=== PATIENT | female | born 1955 | race Caucasian/White ===

== ENCOUNTER 2023-06-18 12:16 | Emergency (ER) | payer MEDICARE, SELFPAY ==
[2023-06-18 12:28] VITALS: BP 162/70; PULSE 89; RESP 18; TEMP 36.7; O2SAT 98; BMI 28.3
--- NOTE | 2023-06-18 12:43 | ECG_ITS ---
[facility] Test Date: 2023-06-18 Pat Name: GRISELDA DAVEY Department: Room: - Gender: Female [employer]isher: : 1955 Requested By: [id number] Order Number: [id number] Reading MD: KRISHNA HEALY Measurements Intervals [place] Rate: 43 P: 64 MD: 162 QRS: 48 QRSD: 138 T: 10 QT: 484 QTc: 430 Interpretive Statements 1130 Sinus bradycardia LEFT BUNDLE BRANCH BLOCK 9150 abnormal ECG Compared to ECG 06/18/2023 12:39:12 Sinus rhythm no longer present Ventricular premature complex(es) no longer present Electronically Signed On 06-19-2023 4:58:03 EST by KRISHNA HEALY
--- NOTE | 2023-06-18 12:44 | CT_ITS ---
The [address] [address] Patient Name: GRISELDA DAVEY MRN: [id number] date: 1955 Sex: F Assigned Patient Location: ER Current Patient Location: ED.MAIN Accession/Order Number: [id number] Exam Date: 06/18/2023 12:50 Report Date: 06/18/2023 13:17 At the request of: KYLEE MCLEAN Procedure: CT head/brain wo con EXAM: CT head/brain wo con HISTORY: dizziness, vertigo . Bradycardia. COMPARISON: None. TECHNIQUE: Contiguous transaxial images were obtained from skull base to vertex without administration of intravenous contrast. Dose reduction: mA and/or kV are were adjusted by automated exposure control software based upon patients height and weight. FINDINGS: There is no focal scalp soft tissue swelling or acute calvarial fracture. The visualized globes and orbits are grossly normal. Visualized paranasal sinuses are clear. Bilateral mastoid air cells are clear. The ventricles and sulci are normal and symmetric bilaterally. There is mild periventricular and deep subcortical white matter low-attenuation consistent with small vessel ischemic disease. There is no intraparenchymal hemorrhage, extraaxial fluid collection, mass lesion, or acute large territory ischemia by noncontrast CT. There is mild intracranial atherosclerosis. CT/CT head/brain wo con IMPRESSION: 1. No acute intracranial hemorrhage or acute large territory ischemia by noncontrast CT. 2. Cerebral atrophy and chronic small vessel ischemic disease. If the patient has a focal neurologic deficit or there is clinical suspicion for acute cerebrovascular accident, brain MRI would be recommended for further evaluation. Electronically authenticated by: JUVE MENG Date: 06/18/2023 13:17
--- NOTE | 2023-06-18 12:44 | XR_ITS ---
The [address] [address] Patient Name: GRISELDA DVAEY MRN: [id number] date: 1955 Sex: F Assigned Patient Location: ER Current Patient Location: ED.MAIN Accession/Order Number: [id number] Exam Date: 06/18/2023 12:50 Report Date: 06/18/2023 13:17 At the request of: KYLEE MCLEAN Procedure: XR chest 1V EXAM: XR chest 1V HISTORY: dizzy, bradycardia COMPARISON: Chest study dated 04/19/2010 TECHNIQUE: AP view of the chest was obtained with portable technique at 12:56 PM. FINDINGS: Heart is within the upper limits of normal for size. No acute infiltrate or consolidations are seen. No obvious pneumothorax. Slight convexity of the dorsal spine to the right. XR/XR chest 1V IMPRESSION: No acute process seen in the chest. Electronically authenticated by: TERESA DHALIWAL Date: 06/18/2023 13:17
--- NOTE | 2023-06-18 12:46 | ED.GENADUL1 ---
HPI - General Adult General Chief complaint: Neuro Symptoms/Deficit Stated complaint: CVA SYMPTOMS Time Seen by Provider: 06/18/23 12:33 Source: patient Mode of arrival: walk-in Limitations: no limitations History of Present Illness HPI narrative: 67-year-old female presents for episodes of dizziness. Two days ago she had two different episodes where she felt like she was spinning and she felt off-balance but she didn't pass out. She is also had tingling on both sides of her face. No localized weakness and she doesn't complain of a headache. She is on a beta bryon, propanolol. She has not had any palpitations and she takes the propanolol for mitral valve prolapse. No fever or vomiting. Related Data Home Medications Medication Instructions Recorded Confirmed mirabegron 50 mg tablet,extended 50 mg PO Q24H 06/18/23 06/18/23 release 24 hr (Myrbetriq) propranolol 80 mg capsule,24 80 mg PO Q24H 06/18/23 06/18/23 hr,extended release Allergies Allergy/AdvReac Type Severity Reaction Status Date / Time No Known Drug Allergies Allergy Verified 06/18/23 12:43 Review of Systems ROS Narrative A ten point review of systems is negative except as noted above. PFSH PFSH Social History Smoking status: Never smoker Exam Narrative Exam Narrative: Nurses note and vital signs reviewed and patient is not hypoxic. General: The patient appears well and in no apparent distress. Patient is resting comfortably on cart. Skin: Warm, dry, no pallor noted. There is no rash noted. Head: Normocephalic, atraumatic Eye: Normal conjunctiva, no drainage Ears, Nose, Mouth, and Throat: oral mucosa is moist. Nares patent. Cardiovascular: Regular Rate and Rhythm. when I walk into the room she was in sinus rhythm with a rate of eighty-five but a few minutes later her heart rate went to forty-five. Respiratory: Patient is in no distress, no accessory muscle use, lungs are clear to auscultation, no wheezing, rales or rhonchi Back: non-tender GI: soft and nontender Musculoskeletal: The patient has no evidence of calf tenderness, no pitting edema, symmetrical pulses noted bilaterally Neurological: A&O, normal speech Psychiatric: Cooperative Constitutional Vital Signs, click to edit/add: Last Vital Signs Temp 98.0 F 06/18/23 12:28 Pulse 89 06/18/23 12:28 Resp 18 06/18/23 12:28 BP 162/70 H 06/18/23 12:28 Pulse Ox 98 06/18/23 12:28 O2 Del Method Room Air 06/18/23 12:28 Course Vital Signs Vital signs: Vital Signs Temperature 98.0 F 06/18/23 12:28 Pulse Rate 89 06/18/23 12:28 Respiratory Rate 18 06/18/23 12:28 Blood Pressure 162/70 H 06/18/23 12:28 Pulse Oximetry 98 06/18/23 12:28 Oxygen Delivery Method Room Air 06/18/23 12:28 Temperature 98.0 F 06/18/23 12:28 Pulse Rate 89 06/18/23 12:28 Respiratory Rate 18 06/18/23 12:28 Blood Pressure 162/70 H 06/18/23 12:28 Pulse Oximetry 98 06/18/23 12:28 Oxygen Delivery Method Room Air 06/18/23 12:28 Medical Decision Making MDM Narrative Medical decision making narrative: The patient has had a heart rate in the mid to lower 40s and it appears to be acutely one block. It is intermittent. She also has intraventricular conduction delay. Case discussed with and Dr Tejeda and the patient is accepted at [facility] for further cardiology intervention. She is stable and agreeable for transfer. Differential Diagnosis Differential Diagnosis: AV block, complete heart block, electrolyte imbalance, propanolol toxic Lab Data Lab results reviewed: Yes I reviewed the patient's lab results Labs: Lab Results 06/18/23 Range/Units 12:47 WBC 7.6 (4.0-11.0) 10^3/uL RBC 4.29 (4.20-5.40) 10^6/uL Hgb 12.6 (12.0-16.0) g/dL Hct 38.9 (36.0-48.0) % MCV 90.7 (81.0-99.0) fL MCH 29.4 (26.7-34.0) pg MCHC 32.4 (29.9-35.2) g/dL RDW 12.7 (11.0-15.0) % Plt Count 249 (150-450) 10^3/uL MPV 9.2 L (9.5-13.5) fL Neut % (Auto) 58.4 (43.0-75.0) % Lymph % (Auto) 27.6 (20.5-60.0) % Hardin % (Auto) 8.3 (1.7-12.0) % Eos % (Auto) 4.9 (0.9-7.0) % Baso % (Auto) 0.5 (0.2-2.0) % Neut # (Auto) 4.5 (1.4-6.5) 10^3/uL Lymph # (Auto) 2.1 (1.2-3.8) 10^3/uL [place]in # (Auto) 0.6 (0.3-0.8) 10^3/uL Eos # (Auto) 0.4 (0.0-0.7) 10^3/uL Baso # (Auto) 0.0 (0.0-0.1) 10^3/uL Abs Immat Gran (auto) 0.02 (0.00-0.03) 10^3/uL Imm/Tot Granulo (auto) 0.3 (0.0-0.5) % Sodium 140 (136-145) mmol/L Potassium 4.1 (3.5-5.1) mmol/L Chloride 105 (98-107) mmol/L Carbon Dioxide 25.1 (21.0-32.0) mmol/L Anion Gap 14.0 BUN 30.0 H (7.0-18.0) mg/dL Creatinine 1.37 H (0.55-1.02) mg/dL Est GFR ( Amer) 46 L (>=60) Est GFR (Non-Af Amer) 38 L (>=60) BUN/Creatinine Ratio 21.9 Glucose 129 H (74-106) mg/dL Calcium 9.1 (8.5-10.1) mg/dL Magnesium 2.0 (1.8-2.4) mg/dL Troponin I High Sens 6.0 (4.0-51.3) pg/mL TSH 4.133 H (0.358-3.740) uIU/mL Imaging Data Chest x-ray: Radiologist's impression: Procedure: XR chest 1V EXAM: XR chest 1V HISTORY: dizzy, bradycardia COMPARISON: Chest study dated 04/19/2010 TECHNIQUE: AP view of the chest was obtained with portable technique at 12:56 PM. FINDINGS: Heart is within the upper limits of normal for size. No acute infiltrate or consolidations are seen. No obvious pneumothorax. Slight convexity of the dorsal spine to the right. IMPRESSION: No acute process seen in the chest. ECG Data Attestation: I personally reviewed and interpreted this ECG as follows: (EKG on my interpretation shows 2-1 AV block. A 2nd EKG was performed and shows mostly sinus rhythm with the 1st few beats on that 2nd EKG showing 2-1 block) Discharge Plan Discharge Chief Complaint: Neuro Symptoms/Deficit Clinical Impression: Atrioventricular block Patient Disposition: [facility] Time of Disposition Decision: 14:30 Discharge Location: [facility] Mode of Transportation: EMS
[2023-06-18 12:59] LABS: Basophils Percent Auto 0.5 % (0.2-2.0); Eosinophils Absolute Auto 0.4 10^3/uL (0.0-0.7); Eosinophils Percent Auto 4.9 % (0.9-7.0); Hematocrit 38.9 % (36.0-48.0); Hemoglobin 12.6 g/dL (12.0-16.0); Immature Granulocytes Abs Auto 0.02 10^3/uL (0.00-0.03); Immature Granulocytes Pct Auto 0.3 % (0.0-0.5); Lymphocytes Absolute Auto 2.1 10^3/uL (1.2-3.8); Lymphocytes Percent Auto 27.6 % (20.5-60.0); Mean Corpuscular HGB Conc 32.4 g/dL (29.9-35.2); Mean Corpuscular Hemoglobin 29.4 pg (26.7-34.0); Mean Corpuscular Volume 90.7 fL (81.0-99.0); Mean Platelet Volume 9.2 fL (9.5-13.5); Monocytes Absolute Auto 0.6 10^3/uL (0.3-0.8); Monocytes Percent Auto 8.3 % (1.7-12.0); Neutrophils Absolute Auto 4.5 10^3/uL (1.4-6.5); Neutrophils Percent Auto 58.4 % (43.0-75.0); Platelet Count 249 10^3/uL (150-450); Red Blood Count 4.29 10^6/uL (4.20-5.40); Red Cell Distribution Width 12.7 % (11.0-15.0); White Blood Count 7.6 10^3/uL (4.0-11.0)
[2023-06-18 13:24] LABS: BUN Creatinine Ratio 21.9; Calcium 9.1 mg/dL (8.5-10.1); Carbon Dioxide 25.1 mmol/L (21.0-32.0); Chloride 105 mmol/L (98-107); Estimated GFR (African America 46 (>=60); Estimated GFR (Non-African Ame 38 (>=60); Glucose 129 mg/dL (74-106); Potassium 4.1 mmol/L (3.5-5.1); Sodium 140 mmol/L (136-145)
[2023-06-18 13:28] LABS: Thyroid Stimulating Hormone 4.133 uIU/mL (0.358-3.740)
--- NOTE | 2023-06-18 13:30 | ECG_ITS ---
The [facility] Test Date: 2023-06-18 Pat Name: GRISELDA DAVEY Department: Room: - Gender: Female [employer] P[employer]: : 1955 Requested By: Order Number: [id number] Reading MD: NORMA LEAVITT Measurements Intervals [place] Rate: 74 P: 62 CA: 170 QRS: -32 QRSD: 136 T: 40 QT: 460 QTc: 487 Interpretive Statements 1100 Sinus rhythm w/ blocked PAC 1570 with occasional ventricular premature complexes 2330 Nonspecific intraventricular conduction block Low voltage across the precordium 7200 Abnormal left axis deviation 9150 abnormal ECG Electronically Signed On 06-19-2023 7:09:51 EST by NORMA LEAVITT
[2023-06-18 14:41] VITALS: BP 142/60
[2023-06-18 23:43] VITALS: BP 128/84; PULSE 84; RESP 17; TEMP 37.1; O2SAT 98
[2023-06-19 04:55] VITALS: PULSE 51
[2023-06-19 04:56] VITALS: BP 127/78; PULSE 51; RESP 16; O2SAT 99
--- NOTE | 2023-06-19 07:47 | PC.NURSE ---
Pt up in bed resting watching TV. Pt denies any flashes off sudden dizziness or extreme numbness/tingling in lips she had before. Breakfast ordered for patient. denies any other needs.
[2023-06-19 07:48] VITALS: BP 110/50; PULSE 47; O2SAT 98
== END 2023-06-19 09:30 | disposition short-term general hospital (02) ==
PROVIDERS: Emergency Medicine; Emergency Provider Internal Medicine; PCP Family Medicine
DX: I44.30 Unspecified atrioventricular block (principal); I45.9 Conduction disorder, unspecified
CPT/HCPCS: 36415; 70450; 71045; 80048; 83735; 84443; 84484; 85025; 93005; 99285

== ENCOUNTER 2023-06-24 10:06 | Emergency (ER) | payer MEDICARE, SELFPAY ==
[2023-06-24] VITALS (11 sets, daily range): BP systolic 117–176; BP diastolic 77–130; PULSE 82–127; RESP 15–28; TEMP 36.5; O2SAT 95–100; BMI 27.5
--- OUTSIDE RECORDS SUMMARY | 2023-06-24 10:15 | XMS_ITS | CCD ---
Author Name Unknown Address [address] [place] [address] Organization [facility] Care Team Providers Care Safety Sealer Name Role Phone DBOUK, TAREK A Unavailable Unavailable DEFRANCE, WOO Sellers Unavailable Unavailable DBOUK, TAREK A Unavailable Unavailable DBOUK, TAREK A Unavailable Unavailable DBOUK, TAREK A Unavailable Unavailable DEFRANCEWOO Unavailable Unavailable ANAI, MAXIME M Unavailable Unavailable ANAI, MAXIME M Unavailable Unavailable DEFRANCE, WOO Unavailable Unavailable DEFRANCE, WOO Unavailable Unavailable ANAI, MAXIME M Unavailable Unavailable ANAI, MAXIME M Unavailable Unavailable DEFRANCE, WOO Unavailable Unavailable DEFRANCE, WOO Unavailable Unavailable ANAI, MAXIME M Unavailable Unavailable ANAI, MAXIME M Unavailable Unavailable DEFRANCE, WOO Unavailable Unavailable DEFRANCE, WOO Unavailable Unavailable ANAI, MAXIME M Unavailable Unavailable ANAI, MAXIME M Unavailable Unavailable DEFRANCE, WOO Unavailable Unavailable DEFRANCE, WOO Unavailable Unavailable ANAI, MAXIME M Unavailable Unavailable ANAI, MAXIME M Unavailable Unavailable ANAI, MAXIME M Unavailable Unavailable DEFRANCE, WOO Unavailable Unavailable ANAI, MAXIME M Unavailable Unavailable ANAI, MAXIME M Unavailable Unavailable DEFRANCE, WOO Unavailable Unavailable DEFRANCE, WOO Unavailable Unavailable ANAI, MAXIME M Unavailable Unavailable ANAI, MAXIME M Unavailable Unavailable DEFRANCE, WOO Unavailable Unavailable DEFRANCE, WOO Unavailable Unavailable KEANE, SUSHILA H Referring Unavailable KEANE SUSHILA H Attending Unavailable KEANE, SUSHILA H Referring Unavailable KEANE, SUSHILA H Referring Unavailable Unavailable Unavailable Unavailable Giovany Souza Unavailable DEFRANCE, DR BERKOWITZ Attending Unavailable DEFRANCE, DR BERKOWITZ Consulting Unavailable DEFRANCE, DR BERKOWITZ Primary Care Unavailable DEFRANCE, DR BERKOWITZ Admitting Unavailable JAMIEDEBI Mendoza Admitting Unavailable KYLEE MCLEAN Referring Unavailable AUSTYN LYONS Attending Unavailable SOM HAMM Referring Unavailable BLANCASAKINA BALL Referring Unavailable SAKINA RIOS Referring Unavailable SRI, AUSTYN Referring Unavailable Allergies Allergy Classification Reported Allergen(s) Allergy Type Date of Onset Reaction(s) Facility (1 source) 82712,00 Drug allergy (disorder) 7 [facility] Repository (1 source) ALLERGIES NOT ON FILE; Translations: [ALLERGIES NOT ON FILE] Propensity to adverse reactions (disorder) [facility] Repository Problems Active Problems Problem Classification Problem Date Documented Date Episodic/Chronic Cardiac dysrhythmias (4 sources) Bradycardia, unspecified; Translations: [Palpitations] Onset: 06-19-2023 Episodic Conduction disorders (4 sources) Unspecified atrioventricular block; Translations: [Presence of cardiac pacemaker] Onset: 06-19-2023 Chronic Disorders of lipid metabolism (4 sources) Mixed hyperlipidemia; Translations: [MIXED HYPERLIPIDEMIA] Onset: 01-12-2022 Chronic Heart valve disorders (1 source) Rheumatic disorders of both mitral and aortic valves; Translations: [Rheumatic disorders of both mitral and aortic valves] Onset: 08-23-2018 Chronic Immunizations and screening for infectious disease (3 sources) Encounter for immunization; Translations: [Encounter For Immunization] Onset: 09-03-2020 Episodic Osteoarthritis (1 source) Bilateral primary osteoarthritis of hip; Translations: [BILATERAL PRIMARY OSTEOARTHRITIS OF HIP] Onset: 03-16-2017 Chronic Other lower respiratory disease (1 source) Shortness of breath; Translations: [Shortness of breath] Onset: 08-23-2018 Episodic Unclassified (2 sources) MIXED INCONTINENCE URGE AND STRESS / MIXED INCONTINENCE URGE AND STRESS() Onset: 09-24-2017 Unclassified (2 sources) Unknown / UNK(Unknown) Onset: 01-11-2017 Past or Other Problems Problem Classification Problem Date Documented Da te Episodic/Chronic Other connective tissue disease (1 source) Arthrodesis status; Translations: [ARTHRODESIS STATUS] Onset: 03-16-2017 Episodic Other fractures (7 sources) Multiple fractures of pelvis without disruption of pelvic ring, subsequent encounter for fracture with routine healing; Translations: [Fracture of unspecified parts of lumbosacral spine and pelvis, subsequent encounter for fracture with routine healing] Onset: 01-11-2017 Episodic Unclassified (2 sources) MIXED INCONTINENCE URGE AND STRESS; Translations: [mixed incontinence urge and stress] Onset: 09-24-2017 Results Test Name Value Interpretation Reference Range Facility 30on 06-22-2023 30 The patient is Moderately Stable - Low risk of patient condition declining or worsening The patient's goals for the shift include d/c The clinical goals for the shift include stable VS Problem: Pain - Adult Goal: Verbalizes/displays adequate comfort level or baseline comfort level Outcome: Progressing Flowsheets (Taken 06/22/2023 0830) Verbalizes/displays adequate comfort level or baseline comfort level: Encourage patient to monitor pain and request assistance Assess pain using appropriate pain scale Administer analgesics based on type and severity of pain and evaluate response Implement non-pharmacological measures as appropriate and evaluate response Consider cultural and social influences on pain and pain management Notify Licensed Independent Practitioner if interventions unsuccessful or patient reports new pain Problem: Safety - Adult Goal: Free from fall injury Outcome: Progressing Flowsheets (Taken 06/22/2023 1000) Free from fall injury: Assess patient frequently for physical needs Identify cognitive and physical deficits and behaviors that affect risk of falls [place] fall precautions as indicated by assessment Educate patient/family on patient safety, including physical limitations Instruct patient to call for assistance with activity based on assessment Modify environment to reduce risk of injury Consider OT/PT consult to assist with strengthening/mobility Problem: Discharge Planning Goal: Discharge to home or other facility with appropriate resources Outcome: Progressing Flowsheets (Taken 06/22/2023 0830) Discharge to home or other facility with appropriate resources: Identify barriers to discharge with patient and caregiver Arrange for needed discharge resources and transportation as appropriate Identify discharge learning needs (meds, wound care, etc) Arrange for interpreters to assist at discharge as needed Refer to discharge planning if patient needs post-hospital services based on physician order or complex needs related to functional status, cognitive ability or social support system Problem: Chronic Conditions and Co-morbidities Goal: Patient's chronic conditions and co-morbidity symptoms are monitored and maintained or improved Outcome: Progressing Problem: Cardiovascular - Adult Goal: Maintains optimal cardiac output and hemodynamic stability Outcome: Progressing Flowsheets (Taken 06/22/2023 0830) Maintains optimal cardiac output and hemodynamic stability: Monitor urine output and notify Licensed Independent Practitioner for values outside of normal range Monitor blood pressure and heart rate Assess for signs of decreased cardiac output Administer fluid and/or volume expanders as ordered Administer vasoactive medications as ordered Problem: Cardiovascular - Adult Goal: Absence of cardiac dysrhythmias or at baseline Outcome: Progressing Flowsheets (Taken 06/22/2023 0830) Absence of cardiac dysrhythmias or at baseline: Monitor cardiac rate and rhythm Assess for signs of decreased cardiac output Administer antiarrhythmia medication and electrolyte replacement as ordered [facility] Letter (Out)on 06-22-2023 Letter (Out) [id number] Luma Carter 1955 F Date Provider Department Center 06/22/2023 [id number], GENERIC PRO*INIT None No family history on file [facility] 30on 06-21-2023 30 The patient is Moderately Stable - Low risk of patient condition declining or worsening The patient's goals for the shift include comfort The clinical goals for the shift include stable vitals Normal [facility] 30 The patient is Moderately Stable - Low risk of patient condition declining or worsening The patient's goals for the shift include comfort The clinical goals for the shift include stable vitals Problem: Pain - Adult Goal: Verbalizes/displays adequate comfort level or baseline comfort level Outcome: Progressing Flowsheets (Taken 06/21/2023 0810) Verbalizes/displays adequate comfort level or baseline comfort level: Encourage patient to monitor pain and request assistance Assess pain using appropriate pain scale Administer analgesics based on type and severity of pain and evaluate response Implement non-pharmacological measures as appropriate and evaluate response Consider cultural and social influences on pain and pain management Notify Licensed Independent Practitioner if interventions unsuccessful or patient reports new pain Problem: Safety - Adult Goal: Free from fall injury Outcome: Progressing Flowsheets (Taken 06/21/2023 0900) Free from fall injury: Assess patient frequently for physical needs Problem: Discharge Planning Goal: Discharge to home or other facility with appropriate resources Outcome: Progressing Flowsheets (Taken 06/21/2023 0800) Discharge to home or other facility with appropriate resources: Identify barriers to discharge with patient and caregiver Arrange for needed discharge resources and transportation as appropriate Identify discharge learning needs (meds, wound care, etc) Arrange for interpreters to assist at discharge as needed Refer to discharge planning if patient needs post-hospital services based on physician order or complex needs related to functional status, cognitive ability or social support system [facility] 30 Routine stress tests Patient information sheet explained, questions answered and signed. Doctor consulted--NA Treatment/Decision tree utilized-arrhythmias Pt instructed she will get results as an inpatient PT tolerated treadmill fair, target heart rate was not achieved. No acute ST or T waves changes noted, LBBB seen and 2:1 AV block seen Denies chest pain, complained of some dizziness and dyspnea Rare PVC's seen Pt left stress lab asymptomatic and hemodynamically stable. Full final report from hydraulic press in operator to follow Shanta Robbins, MSN, CONDITIONER TUMBLER OPERATOR Stress Lab Normal [facility] 30 Daily Case Managemen t Update Multidisciplinary rounds have been completed. Barriers to Discharge: Pending clinical course and improvement in clinical condition. Patient having treadmill stress test today per cardiology to determine plan - pacemaker vs monitor on dc Diet: Dietary Orders (From admission, onward) Start Ordered 06/21/23 0001 Diet NPO Diet effective midnight Comments: Sips with medications Question: Reason for NPO: Answer: Operation/Procedure 06/20/23 1230 Physician Expected Discharge Date: 06/21/2023 Discharge Delays: PT Six Click Score: OT Six Click Score: PT Recommendations: OT Recommendations: Does patient understand post acute plan of care? Yes Is expected discharge disposition appropriate for patient?: Yes New Consults: Consult Orders (From admission, onward) Start Ordered 06/19/23 1149 Inpatient consult to Neurology Once Specialty: Neurology Provider: (Not yet assigned) Question Answer Comment Consulting Group HOSPITALIST (ADMIT/FLOAT) Reason for Consult? perioral numbness Level of Consultation Consultation and Management 06/19/23 1148 Normal [facility] BASIC METABOLIC PANELon 12-2 Anion gap [Moles/Vol] 8 mmol/L Normal 7-20 [facility] Comment on above: Performed By: #### L [id number] #### [facility] ([facility]) [address] [place] [address] Calcium [Mass/Vol] 9.0 mg/dL Normal 8.6-10.3 [facility] Comment on above: Performed By: #### L [id number] #### [facility] ([facility]) [address] [place] [address] Chloride [Moles/Vol] 109 mmol/L High 98-107 [facility] Comment on above: Performed By: #### L [id number] #### [facility] ([facility]) [address] [place] [address] CO2 [Moles/Vol] 24 mmol/L Normal 21-31 [facility] Comment on above: Performed By: #### L [id number] #### [facility] ([facility] [address] [place] [address] Creatinine [Mass/Vol] 1.05 mg/dL Normal 0.60-1.20 [facility] Comment on above: Performed By: #### L [id number] #### [facility] ([facility]) [address] [place] [address] GLOMERULAR FILTRATION RATE ML/MIN/1.73 SQ M.PREDICTED 57.9 mL/min/1.73m*2 Low >60.0 [facility] Comment on above: Result Comment: [facility]???s estimated glomerular filtration rate (eGFR) will no longer include consideration of race in its calculation. The National Kidney Foundation???s eGFR Task Force developed new recommendations for the estimation of the glomerular filtration rate in the [place] They recommend immediate implementation of the new equation refit without the race variable in all laboratories because the calculation does not include race. In addition to not including race in the calculation and reporting, it included diversity in its development, and has acceptable performance characteristics and potential consequences that do not disproportionately affect any one group of individuals. Performed By: #### L [id number] #### [facility] ([facility]) [address] [place] [address] Glucose [Mass/Vol] 108 mg/dL High 70-100 [facility] Comment on above: Performed By: #### L [id number] #### [facility] ([facility]) [address] [place] [address] Potassium [Moles/Vol] 4.2 mmol/L Normal 3.5-5.1 [facility] Comment on above: Performed By: #### L [id number] #### [facility] ([facility]) [address] [place] [address] Sodium [Moles/Vol] 137 mmol/L Normal 136-145 [facility] Comment on above: Performed By: #### L [id number] #### [facility] ([facility]) [address] [place] [address] Urea nitrogen [Mass/Vol] 25 mg/dL Normal 7-25 [facility] Comment on above: Performed By: #### L [id number] #### [facility] ([facility]) [address] [place] [address] UREA NITROGEN/CREATININE (MASS RATIO) IN SER/PLAS 23.8 Normal [facility] Comment on above: Performed By: #### L [id number] #### [facility] ([facility]) [address] [place] [address] CBCon 06-21-2023 Erythrocyte distribution width (RBC) [Ratio] 12.7 % Normal 11.5-15.0 [facility] Comment on above: Performed By: #### L [id number] #### [facility] ([facility]) [address] [place] [address] ERYTHROCYTE MEAN CORPUSCULAR HEMOGLOBIN CONCENTRATION (G/DL) BY AUTOMATED 33.4 g/dL Normal 32.0-35.0 [facility] Comment on above: Performed By: #### L [id number] #### [facility] ([facility]) [address] [place] [address] Hematocrit (Bld) [Volume fraction] 38.6 % Normal 36.0-48.0 [facility] Comment on above: Performed By: #### L [id number] #### [facility] ([facility] [address] [place] [address] Hemoglobin (Bld) [Mass/Vol] 12.9 g/dL Normal 12.0-15.0 [facility] Comment on above: Performed By: #### L [id number] #### [facility] ([facility]) [address] [place] [address] MCH (RBC) [Entitic mass] 29.4 pg Normal 27.0-33.0 [facility] Comment on above: Performed By: #### L [id number] #### [facility] ([facility]) [address] [place] [address] MCV (RBC) [Entitic vol] 87.9 fL Normal 82.0-98.0 [facility] Comment on above: Performed By: #### L [id number] #### [facility] ([facility]) [address] [place] [address] PLATELETS (10*3/UL) IN BLOOD AUTOMATED COUNT 208 10*3/uL Normal 150-400 [facility] Comment on above: Performed By: #### L [id number] #### [facility] ([facility]) [address] [place] [address] RBC (Bld) [#/Vol] 4.39 10*6/uL Normal 3.80-5.00 [facility] Comment on above: Performed By: #### L [id number] #### [facility] ([facility]) [address] [place] [address] WBC (Bld) [#/Vol] 6.57 10*3/uL Normal 4.00-10.60 [facility] Comment on above: Performed By: #### L [id number] #### [facility] ([facility]) [address] [place] [address] 30on 06-20-2023 30 The patient is Moderately Stable - Low risk of patient condition declining or worsening The patient's goals for the shift include comfort The clinical goals for the shift include stable vitals Normal [facility] 30 Daily Case Managemen t Update Multidisciplinary rounds have been completed. Barriers to Discharge: Pending clinical course and improvement in clinical condition. Neurology consulted to evaluate complaints of facial numbness and tingling. Plan for permanent pacemaker to be placed tomorrow 06/21/2023. Diet: Dietary Orders (From admission, onward) Start Ordered 06/21/23 0001 Diet NPO Diet effective midnight Comments: Sips with medications Question: Reason for NPO: Answer: Operation/Procedure 06/20/23 1230 06/20/23 1214 Regular Diet Heart Healthy/HTN, CABG,Stroke, (2gNA, low fat, low cholesterol) Diet effective now Question Answer Comment Room Service? Yes Fat restriction: Heart Healthy/HTN, CABG,Stroke, (2gNA, low fat, low cholesterol) 06/20/23 1213 Physician Expected Discharge Date: 06/21/2023 Discharge Delays: PT Six Click Score: OT Six Click Score: PT Recommendations: OT Recommendations: Does patient understand post acute plan of care? Yes Is expected discharge disposition appropriate for patient?: Yes New Consults: Consult Orders (From admission, onward) Start Ordered 06/19/23 1149 Inpatient consult to Neurology Once Specialty: Neurology Provider: (Not yet assigned) Question Answer Comment Consulting Group HOSPITALIST (ADMIT/FLOAT) Reason for Consult? perioral numbness Level of Consultation Consultation and Management 06/19/23 1148 Normal [facility] 30 Problem: Pain - Adul t Goal: Verbalizes/displays adequate comfort level or baseline comfort level Outcome: Progressing Flowsheets (Taken 06/20/2023799) Verbalizes/displays adequate comfort level or baseline comfort level: Encourage patient to monitor pain and request assistance Assess pain using appropriate pain scale Administer analgesics based on type and severity of pain and evaluate response Implement non-pharmacological measures as appropriate and evaluate response Consider cultural and social influences on pain and pain management Notify Licensed Independent Practitioner if interventions unsuccessful or patient reports new pain Problem: Safety - Adult Goal: Free from fall injury Outcome: Progressing Flowsheets (Taken 06/20/2023 08) Free from fall injury: Identify cognitive and physical deficits and behaviors that affect risk of falls Assess patient frequently for physical needs [place] fall precautions as indicated by assessment Educate patient/family on patient safety, including physical limitations Instruct patient to call for assistance with activity based on assessment Modify environment to reduce risk of injury Consider OT/PT consult to assist with strengthening/mobility Problem: Discharge Planning Goal: Discharge to home or other facility with appropriate resources Outcome: Progressing Flowsheets (Taken 06/20/202315) Discharge to home or other facility with appropriate resources: Identify barriers to discharge with patient and caregiver Arrange for needed discharge resources and transportation as appropriate Identify discharge learning needs (meds, wound care, etc) Arrange for interpreters to assist at discharge as needed Refer to discharge planning if patient needs post-hospital services based on physician order or complex needs related to functional status, cognitive ability or social support system Problem: Discharge Planning Goal: Discharge to home or other facility with appropriate resources Outcome: Progressing Flowsheets (Taken 06/20/2023814) Discharge to home or other facility with appropriate resources: Identify barriers to discharge with patient and caregiver Arrange for needed discharge resources and transportation as appropriate Identify discharge learning needs (meds, wound care, etc) Arrange for interpreters to assist at discharge as needed Refer to discharge planning if patient needs post-hospital services based on physician order or complex needs related to functional status, cognitive ability or social support system Problem: Chronic Conditions and Co-morbidities Goal: Patient's chronic conditions and co-morbidity symptoms are monitored and maintained or improved Outcome: Progressing Flowsheets (Taken 06/20/2023814) Care Plan - Patient's Chronic Conditions and Co-Morbidity Symptoms are Monitored and Maintained or Improved: Monitor and assess patient's chronic conditions and comorbid symptoms for stability, deterioration, or improvement Collaborate with multidisciplinary team to address chronic and comorbid conditions and prevent exacerbation or deterioration Update acute care plan with appropriate goals if chronic or comorbid symptoms are exacerbated and prevent overall improvement and discharge Problem: Chronic Conditions and Co-morbidities Goal: Patient's chronic conditions and co-morbidity symptoms are monitored and maintained or improved Outcome: Progressing Flowsheets (Taken 06/20/2023814) Care Plan - Patient's Chronic Conditions and Co-Morbidity Symptoms are Monitored and Maintained or Improved: Monitor and assess patient's chronic conditions and comorbid symptoms for stability, deterioration, or improvement Collaborate with multidisciplinary team to address chronic and comorbid conditions and prevent exacerbation or deterioration Update acute care plan with appropriate goals if chronic or comorbid symptoms are exacerbated and prevent overall improvement and discharge Problem: Cardiovascular - Adult Goal: Maintains optimal cardiac output and hemodynamic stability Outcome: Progressing Flowsheets (Taken 06/20/2023814) Maintains optimal cardiac output and hemodynamic stability: Monitor blood pressure and heart rate Monitor urine output and notify Licensed Independent Practitioner for values outside of normal range Assess for signs of decreased cardiac output Goal: Absence of cardiac dysrhythmias or at baseline Outcome: Progressing Flowsheets (Taken 06/20/2023814) Absence of cardiac dysrhythmias or at baseline: Monitor cardiac rate and rhythm Assess for signs of decreased cardiac output Administer antiarrhythmia medication and electrolyte replacement as ordered Problem: Metabolic/Fluid and Electrolytes - Adult Goal: Electrolytes maintained within normal limits Outcome: Progressing Flowsheets (Taken 06/20/2023814) Electrolytes maintained within normal limits: Monitor la (more content not included)... Normal [facility] BASIC METABOLIC PANELon 12-2 Anion gap [Moles/Vol] 9 mmol/L Normal 7-20 [facility] Comment on above: Performed By: #### L [id number] #### [facility] ([facility]) [address] [place] [address] Calcium [Mass/Vol] 8.9 mg/dL Normal 8.6-10.3 [facility] Comment on above: Performed By: #### L AB15 #### [facility] ([facility]) [address] [address] Chloride [Moles/Vol] 107 mmol/L Normal 98-107 [facility] Comment on above: Performed By: #### L AB15 #### [facility] ([facility]) [address] [place] [address] CO2 [Moles/Vol] 24 mmol/L Normal 21-31 [facility] Comment on above: Performed By: #### L AB15 #### [facility] ([facility]) [address] [place] [address] Creatinine [Mass/Vol] 1.07 mg/dL Normal 0.60-1.20 [facility] Comment on above: Performed By: #### L AB15 #### [facility] ([facility]) [address] [place] [address] GLOMERULAR FILTRATION RATE ML/MIN/1.73 SQ M.PREDICTED 56.6 mL/min/1.73m*2 Low >60.0 [facility] Comment on above: Result Comment: [facility]???s estimated glomerular filtration rate (eGFR) will no longer include consideration of race in its calculation. The National Kidney Foundation???s eGFR Task Force developed new recommendations for the estimation of the glomerular filtration rate in the [place] They recommend immediate implementation of the new equation refit without the race variable in all laboratories because the calculation does not include race. In addition to not including race in the calculation and reporting, it included diversity in its development, and has acceptable performance characteristics and potential consequences that do not disproportionately affect any one group of individuals. Performed By: #### L [id number] #### [facility] [address] [place] [address] Glucose [Mass/Vol] 104 mg/dL High 70-100 [facility] Comment on above: Performed By: #### L [id number] #### [facility] ([facility]) [address] [place] [address] Potassium [Moles/Vol] 4.1 mmol/L Normal 3.5-5.1 [facility] Comment on above: Performed By: #### L [id number] #### [facility] ([facility]) [address] [place] [address] Sodium [Moles/Vol] 136 mmol/L Normal 136-145 [facility] Comment on above: Performed By: #### L [id number] #### [facility] ([facility]) [address] [place] [address] Urea nitrogen [Mass/Vol] 22 mg/dL Normal 7-25 [facility] Comment on above: Performed By: #### L [id number] #### [facility] ([facility]) [address] [place] [address] UREA NITROGEN/CREATININE (MASS RATIO) IN SER/PLAS 20.6 Normal [facility] Comment on above: Performed By: #### L [id number] #### [facility] ([facility]) [address] [place] [address] CBCon 06-20-2023 Erythrocyte distribution width (RBC) [Ratio] 12.7 % Normal 11.5-15.0 [facility] Comment on above: Performed By: #### L [id number] #### [facility] ([facility]) [address] [place] [address] ERYTHROCYTE MEAN CORPUSCULAR HEMOGLOBIN CONCENTRATION (G/DL) BY AUTOMATED 33.8 g/dL Normal 32.0-35.0 [facility] Comment on above: Performed By: #### L [id number] #### [facility] ([facility]) [address] [place] [address] Hematocrit (Bld) [Volume fraction] 37.9 % Normal 36.0-48.0 [facility] Comment on above: Performed By: #### L [id number] #### [facility] ([facility]) [address] [place] [address] Hemoglobin (Bld) [Mass/Vol] 12.8 g/dL Normal 12.0-15.0 [facility] Comment on above: Performed By: #### L [id number] #### [facility] ([facility]) [address] [place] [address] MCH (RBC) [Entitic mass] 29.7 pg Normal 27.0-33.0 [facility] Comment on above: Performed By: #### L [id number] #### [facility] ([facility]) [address] [place] [address] MCV (RBC) [Entitic vol] 87.9 fL Normal 82.0-98.0 [facility] Comment on above: Performed By: #### L [id number] #### [facility] ([facility]) [address] [place] [address] PLATELETS (10*3/UL) IN BLOOD AUTOMATED COUNT 216 10*3/uL Normal 150-400 [facility] Comment on above: Performed By: #### L [id number] #### [facility]) [address] [place] [address] RBC (Bld) [#/Vol] 4.31 10*6/uL Normal 3.80-5.00 [facility] Comment on above: Performed By: #### L [id number] #### [facility] ([facility]) [address] [place] [address] WBC (Bld) [#/Vol] 8.85 10*3/uL Normal 4.00-10.60 [facility] Comment on above: Performed By: #### L [id number] #### [facility] ([facility]) [address] [place] [address] IRON AND TIBCon 06-20-2022 IRON (UG/DL) IN SER/PLAS 20 ug/dL Low 50-212 [facility] Comment on above: Performed By: #### L [id number] #### [facility] ([facility]) [address] [place] [address] IRON BINDING CAPACITY (UG/DL) IN SER/PLAS 386 ug/dL Normal 250-450 [facility] Comment on above: Performed By: #### L [id number] #### [facility] [address] [place] [address] IRON BINDING CAPACITY.UNSATURATE D (UG/DL) IN SER/PLAS 366.0 ug/dL High 155.0-355.0 [facility] Comment on above: Performed By: #### L [id number] #### [facility] ([facility]) [address] [place] [address] IRON SATURATION (%) IN SER/PLAS 5 % Low 20-50 [facility] Comment on above: Performed By: #### L [id number] #### [facility] ([facility]) [address] [place] [address] VITAMIN B6on 06-20-2023 VITAMIN B6 32.3 nmol/L Normal 20.0-125.0 [facility] Comment on above: Result Comment: INTE RPRETIVE INFORMATION: Vitamin B6 (Pyridoxal 5-Phosphate) Pyridoxal 5'-phosphate measured in a specimen collected following an 8-hour or overnight fast accurately indicates vitamin B6 nutritional status. Non-fasting specimen concentration reflects recent vitamin intake. This test was developed and its performance characteristics determined by [facility]. It has not been cleared or approved by the US Food and Drug Administration. This test was performed in a CLIA certified laboratory and is intended for clinical purposes. Performed By: [facility] [address] [place] [address] Outside Sales Manager: Rocky Claros MD, PhD CLIA Number: [id number] Performed By: #### L [id number] #### [facility] ([facility]) [address] [place] [address] 30on 06-19-2023 30 The patient is Moderately Stable - Low risk of patient condition declining or worsening The patient's goals for the shift include comfort, rest The clinical goals for the shift include stable vital signs Over the shift, the patient did not make progress toward the following goals. Problem: Pain - Adult Goal: Verbalizes/displays adequate comfort level or baseline comfort level Outcome: Progressing Problem: Safety - Adult Goal: Free from fall injury Outcome: Progressing Problem: Discharge Planning Goal: Discharge to home or other facility with appropriate resources Outcome: Progressing Problem: Chronic Conditions and Co-morbidities Goal: Patient's chronic conditions and co-morbidity symptoms are monitored and maintained or improved Outcome: Progressing Problem: Cardiovascular - Adult Goal: Maintains optimal cardiac output and hemodynamic stability Outcome: Progressing Goal: Absence of cardiac dysrhythmias or at baseline Outcome: Progressing Problem: Metabolic/Fluid and Electrolytes - Adult Goal: Electrolytes maintained within normal limits Outcome: Progressing Goal: Hemodynamic stability and optimal renal function maintained Outcome: Progressing Normal [facility] 30 The patient is Moderately Unstable - Medium risk of patient condition declining or worsening The patient's goals for the shift include rest, eat The clinical goals for the shift include stable vitals Over the shift, the patient did not make progress toward the following goals. Barriers to progression include EKG showing a second degree heart block and low magnesium. Recommendations to address these barriers include following cardiology's plan of care and magnesium replacement via IV. Problem: Cardiovascular - Adult Goal: Absence of cardiac dysrhythmias or at baseline Outcome: Not Progressing Flowsheets (Taken 06/19/2023 1050) Absence of cardiac dysrhythmias or at baseline: Monitor cardiac rate and rhythm Assess for signs of decreased cardiac output Problem: Metabolic/Fluid and Electrolytes - Adult Goal: Electrolytes maintained within normal limits Outcome: Not Progressing Flowsheets (Taken 06/19/2023 1050) Electrolytes maintained within normal limits: Monitor labs and assess patient for signs and symptoms of electrolyte imbalances Administer electrolyte replacement as ordered Monitor response to electrolyte replacements, including repeat lab results as appropriate Normal [facility] 30 Daily Case Managemen t Update Multidisciplinary rounds have been completed. Barriers to Discharge: Patient transferred from [facility] with dizziness, facial numbness and SOB. Cardiology consulted for bradycardia in 40's. Await recommendations Diet: Dietary Orders (From admission, onward) Start Ordered 06/19/23 1051 Diet NPO Diet effective now Comments: Sips with medications Question: Reason for NPO: Answer: Operation/Procedure 06/19/23 1052 Physician Expected Discharge Date: 06/21/2023 Discharge Delays: PT Six Click Score: OT Six Click Score: PT Recommendations: OT Recommendations: Does patient understand post acute plan of care? Yes Is expected discharge disposition appropriate for patient?: Yes New Consults: Consult Orders (From admission, onward) Start Ordered 06/19/23 1043 Inpatient consult to Cardiology Once Specialty: Cardiology Provider: (Not yet assigned) Question Answer Comment Consulting Group CARDIOLOGY TEAM Reason for Consult? bradycardia Level of Consultation Consultation and Management 06/19/23 1042 Normal [facility] BASIC METABOLIC PANELon 06-01 Anion gap [Moles/Vol] 11 mmol/L Normal 7-20 [facility] Comment on above: Performed By: #### L [id number] #### [facility] ([facility]) [address] [facility] [place] [address] Calcium [Mass/Vol] 8.9 mg/dL Normal 8.6-10.3 [facility] Comment on above: Performed By: #### L [id number] #### [facility] ([facility]) [address] [facility] [place] [address] Chloride [Moles/Vol] 106 mmol/L Normal 98-107 [facility] Comment on above: Performed By: #### L [id number] #### [facility] ([facility]) [address] [facility] [place] [address] CO2 [Moles/Vol] 23 mmol/L Normal 21-31 [facility] Comment on above: Performed By: #### L [id number] #### [facility] ([facility]) [address] [facility] [place] [address] Creatinine [Mass/Vol] 1.06 mg/dL Normal 0.60-1.20 [facility] Comment on above: Performed By: #### L [id number] #### [facility] ([facility]) [address] [place] [address] GLOMERULAR FILTRATION RATE ML/MIN/1.73 SQ M.PREDICTED 57.2 mL/min/1.73m*2 Low >60.0 [facility] Comment on above: Result Comment: The [facility]???s estimated glomerular filtration rate (eGFR) will no longer include consideration of race in its calculation. The National Kidney Foundation???s eGFR Task Force developed new recommendations for the estimation of the glomerular filtration rate in the [place] They recommend immediate implementation of the new equation refit without the race variable in all laboratories because the calculation does not include race. In addition to not including race in the calculation and reporting, it included diversity in its development, and has acceptable performance characteristics and potential consequences that do not disproportionately affect any one group of individuals. Performed By: #### L [id number] #### [facility] ([facility]) [address] [facility] [facility] [place] [address] Glucose [Mass/Vol] 132 mg/dL High 70-100 [facility] Comment on above: Performed By: #### L [id number] #### [facility] ([facility]) [address] [facility] [place] [address] Potassium [Moles/Vol] 4.1 mmol/L Normal 3.5-5.1 [facility] Comment on above: Performed By: #### L [id number] #### [facility] ([facility]) [address] [facility] [place] [address] Sodium [Moles/Vol] 136 mmol/L Normal 136-145 [facility] Comment on above: Performed By: #### L [id number] #### [facility] ([facility]) [address] [facility] [place] [address] Urea nitrogen [Mass/Vol] 26 mg/dL High 7-25 [facility] Comment on above: Performed By: #### L [id number] #### [facility] ([facility]) [address] [facility] [place] [address] UREA NITROGEN/CREATININE (MASS RATIO) IN SER/PLAS 24.5 Normal [facility] Comment on above: Performed By: #### L [id number] #### [facility] ([facility]) [address] [facility] [place] [address] CBCon 06-19-2023 Erythrocyte distribution width (RBC) [Ratio] 12.8 % Normal 11.5-15.0 [facility] Comment on above: Performed By: #### L [id number] #### [facility] ([facility]) [address] [place] [address] ERYTHROCYTE MEAN CORPUSCULAR HEMOGLOBIN CONCENTRATION (G/DL) BY AUTOMATED 33.3 g/dL Normal 32.0-35.0 [facility] Comment on above: Performed By: #### L [id number] #### [facility] [address] [place] [address] Hematocrit (Bld) [Volume fraction] 37.5 % Normal 36.0-48.0 [facility] Comment on above: Performed By: #### L [id number] #### [facility] [address] [place] [address] Hemoglobin (Bld) [Mass/Vol] 12.5 g/dL Normal 12.0-15.0 [facility] Comment on above: Performed By: #### L [id number] #### [facility] [address] [place] [address] MCH (RBC) [Entitic mass] 29.5 pg Normal 27.0-33.0 [facility] Comment on above: Performed By: #### L [id number] #### [facility] ([facility] [address] [place] [address] MCV (RBC) [Entitic vol] 88.4 fL Normal 82.0-98.0 [facility] Comment on above: Performed By: #### L [id number] #### [facility] ([facility] [address] [place] [address] PLATELETS (10*3/UL) IN BLOOD AUTOMATED COUNT 233 10*3/uL Normal 150-400 [facility] Comment on above: Performed By: #### L [id number] #### [facility] ([facility]) [address] [place] [address] RBC (Bld) [#/Vol] 4.24 10*6/uL Normal 3.80-5.00 [facility] Comment on above: Performed By: #### L [id number] #### [facility] [address] [place] [address] WBC (Bld) [#/Vol] 8.35 10*3/uL Normal 4.00-10.60 [facility] Comment on above: Performed By: #### L [id number] #### [facility] ([facility]) [address] [place] [address] CONSULTon 06-19-2023 CONSULT --- Attestation signed by Vijay Sandoval MD at 06/19/2023 4:48 PM I personally saw and examined the patient on the same date of service as resident/fellow Dr Mesa. I discussed the findings and therapeutic plan with the resident/fellow Dr Mesa. I agree with the documentation, except for any edits/updates below. Teaching Physician's Revisions: Had a long discussion with the patient and her daughter regarding her presentation. EKGs from [facility] and telemetry here show episodes of 2-1 AV block, second-degree AV block Mobitz type II, and nonconducted PACs. The patient was symptomatic. However, she was on a beta-bryon that has been held since yesterday AM. If she continues to show symptomatic bradycardia arrhythmias, we would recommend a permanent pacemaker. This will have to be after clearance from neurology as there are concerns regarding a possible cerebrovascular accident/transient ischemic attack. Vijay Sandoval MD, MPH, [facility], [facility], [facility] Interventional Cardiology Pager Email: [email or web address] Cardiology Consult Note Reason for Consult: Bradycardia HPI: Luma Carter is a 67 y.o. 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 for symptomatic bradycardia. Patient states she chronically has dizziness that comes in episodes. However, on Sunday, her episode was persistent. 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 She lost balance and stumbled before recovering. 20 minutes later, she experienced another episode of dizziness and losing balance. She also endorses worsening shortness of breath and fatigue since the weekend. Denies any chest pain, palpitations, nausea, vomiting, chest pressure during these episodes. She also is having flashes of alis oral numbness and tingling. Denies feeling it elsewhere in body. States she has had cardiac workup Patient noted to be bradycardic with HR 40s at outside facility. CT head done there was negative for acute pathology. Transferred here for cardiac consultation. Neurology is also consulted for concern for stroke-like symptoms with tingling, numbness, and dizziness. Cardiology ROS: GENERAL: Denies fever, chills, night sweats, weight loss. CARDIOVASCULAR: Denies chest pain, exertional dyspnea, orthopnea/PND, lower extremity edema, palpitations, lightheadedness/dizzine ss, syncope. RESPIRATORY: Denies SOB, coughing, wheezing GI: Denies abdominal pain, nausea/vomiting. PSYCH: Denies anxiety. Past Medical History She has no past medical history on file. Surgical History She has a past surgical history that includes CTA chest w and/or wo IV contrast (10/24/2016). Social History She reports that she has never smoked. She has never used smokeless tobacco. No history on file for alcohol use and drug use. Family History No family history on file. Allergies Patient has no allergy information on record. Medications Medications Prior to Admission Medication Sig Dispense Refill Last Dose naproxen (Naprosyn) 500 mg tablet Take 500 mg by mouth twice a day. 06/18/2023 Myrbetriq 50 mg tablet extended release 24 hr 06/18/2023 propranolol LA (Inderal LA) 80 mg 24 hr capsule 06/18/2023 Last Recorded Vitals Patient Vitals for the past 24 hrs: BP Temp Temp src Pulse Resp SpO2 Height 06/19/23 1100 -- -- -- -- -- -- 1.651 m (5' 5 ) 06/19/23 1050 115/75 36.8 ???C (98.2 ???F) Temporal (!) 49 19 97 % -- Physical Examination: GENERAL: AOx3, in no acute distress. HEAD: Atraumatic, normocephalic. EYES: JACQUELINE, EOMI. NECK: No JVD present. CARDIAC: RRR. No murmur, rubs, or gallops. RESPIRATORY: CTAB, no increased effort of breathing. ABDOMEN: Soft, nontender, nondistended. EXTREMITIES: No lower extremity edema, peripheral pulses are 2+ bilaterally. NEURO: No focal deficits Relevant Lab Results @LABRESULTS@ Encounter Date: 06/19/23 ECG 12 lead Result Value Ventricular Rate 85 Atrial Rate 85 [place] Interval 156 QRS DURATION 132 QT Interval 480 QTC CALCULATION(BAZETT) 571 P Rac[place] 68 R-Racine 1 T Wave Rac[place] 34 Impression Normal sinus rhythm Left bundle branch block Abnormal ECG No previous ECGs available No results found for: CKTOTAL , CKMB , CKMBINDEX , TROPONINI No echocardiogram results found for the past 12 months No nuclear medicine results found for the past 12 months Relevant Imaging Results ECG 12 lead Normal sinus rhythm Left bundle branch block Abnormal ECG No previous ECGs available Assessment: Symptomatic bradycardia; possibly in the setting of long-term beta bryon use Dizziness; hx of BP (more content not included)... Normal [facility] FOLATEon 06-19-2023 FOLATE (NG/ML) IN SER/PLAS 27.00 ng/mL Normal 6.6-1000 [facility] Comment on above: Performed By: #### L [id number] #### [facility] ([facility]) [address] [place] [address] FOLATE (NG/ML) IN SER/PLAS 29.00 ng/mL Normal 6.6-1000 [facility] Comment on above: Performed By: #### L [id number] #### [facility] ([facility]) [address] [place] [address] Letter (Out)on 06-19-2023 Letter (Out) [id number] Luma Carter 1955 F Date Provider Department Center 06/19/2023 [id number], GENERIC PRO*INIT None No family history on file Normal [facility] MAGNESIUMon 06-19-2023 Magnesium [Mass/Vol] 1.7 mg/dL Low 1.9-2.7 [facility] Comment on above: Performed By: #### L [id number] ####[facility] ([facility])[address] [place] [address] TSH3 REFLEX TO FT4on 023 THYROTROPIN (MIU/L) IN SER/PLAS BY DETECTION LIMIT <= 0.05 MIU/L 2.78 mIU/L Normal 0.34-5.60 [facility] Comment on above: Performed By: #### L [id number] #### [facility] ([address] [address] VITAMIN B12on 06-19-2023 Cobalamin (Vitamin B12) [Mass/Vol] 437 pg/mL Normal 180-914 [facility] Comment on above: Result Comment: REFE RENCE RANGES: 180-914 pg/mL Normal 145-179 pg/mL Indeterminate <145 pg/mL Deficient Performed By: #### L [id number] ####[facility] ([facility])[address] [place] [address] VITAMIN B6on 06-19-2023 VITAMIN B6 66.5 nmol/L Normal 20.0-125.0 [facility] Comment on above: Result Comment: INTE RPRETIVE INFORMATION: Vitamin B6 (Pyridoxal 5-Phosphate) Pyridoxal 5'-phosphate measured in a specimen collected following an 8-hour or overnight fast accurately indicates vitamin B6 nutritional status. Non-fasting specimen concentration reflects recent vitamin intake. This test was developed and its performance characteristics determined by [facility]. It has not been cleared or approved by the US Food and Drug Administration. This test was performed in a CLIA certified laboratory and is intended for clinical purposes. Performed By: [facility] [address] [place] [id number] Outside Sales Manager: Rocky Claros MD, PhD CLIA Number: [id number] Performed By: #### L [id number] ####[facility] ([facility])[address] [place] [address] CBC AUTO DIFFon 01-12-2022 BASO # 0.0 103/ul Normal 0.0-0.1 [facility] Comment on above: Performed By: #### C BC #### [facility] [address] [address] [address] Anurag Solano Basophils/100 WBC (Bld) 0.4 % Normal 0.2-2.0 [facility] Comment on above: Performed By: #### C BC #### [facility] [address] [address] [address] Anurag Solano EO # 0.2 103/ul Normal 0.0-0.7 [facility] Comment on above: Performed By: #### C BC #### [facility] [address] [place] [address] Dr. Anurag Solano Eosinophils/100 WBC (Bld) 2.9 % Normal 0.9-7.0 [facility] Comment on above: Performed By: #### C BC #### [facility] [address] [place] [address] Dr. Anurag Solano Erythrocyte distribution width (RBC) [Ratio] 12.4 % Normal 11.0-15.0 [facility] Comment on above: Performed By: #### C BC #### [facility] [address] [place] [address] Dr. Anurag Solano Hematocrit (Bld) [Volume fraction] 41.0 % Normal 36.0-48.0 [facility] Comment on above: Performed By: #### C BC #### [facility] [address] [address] [address] Anurag Solano Hemoglobin (Bld) [Mass/Vol] 13.3 g/dL Normal 12.0-16.0 [facility] Comment on above: Performed By: #### C BC #### [facility] [address] [place] [address] Dr. Anurag Solano IG # 0.02 10e3/ul Normal 0.00-0.03 [facility] Comment on above: Performed By: #### C BC #### [facility] [address] [place] [address] Dr. Anurag Solano IG % 0.3 % Normal 0.0-0.5 [facility] Comment on above: Performed By: #### C BC #### [facility] [address] [place] [address] Dr. Anurag Solano LYMPH # 2.2 103/ul Normal 1.2-3.8 [facility] Comment on above: Performed By: #### C BC #### [facility] [address] [place] [address] Dr. Anurag Solano Lymphocytes/100 WBC (Bld) 30.1 % Normal 20.5-60.0 [facility] Comment on above: Performed By: #### C BC #### [facility] [address] [place] [address] Dr. Anurag Solano MANUAL DIFF REQ NO Normal [facility] Comment on above: Performed By: #### C BC #### [facility] [address] [place] [address] Dr. Anurag Solano MCH (RBC) [Entitic mass] 29.8 pg Normal 26.7-34.0 [facility] Comment on above: Performed By: #### C BC #### [facility] [address] [place] [address] Dr. Anurag Solano MCHC (RBC) [Mass/Vol] 32.4 g/dL Normal 29.9-35.2 [facility] Comment on above: Performed By: #### C BC #### [facility] [address] [place] [address] Dr. Anurag Solano MCV (RBC) [Entitic vol] 91.7 fL Normal 81.0-99.0 [facility] Comment on above: Performed By: #### C BC #### [facility] [address] [place] [address] Dr. Anurag Solano MONO # 0.6 103/ul Normal 0.3-0.8 [facility] Comment on above: Performed By: #### C BC #### [facility] [address] [place] [address] Dr. Anurag Solano Monocytes/100 WBC (Bld) 7.7 % Normal 1.7-12.0 [facility] Comment on above: Performed By: #### C BC #### [facility] [address] [place] [address] Dr. Anurag Solano NEUT # 4.3 103/ul Normal 1.4-6.5 [facility] Comment on above: Performed By: #### C BC #### [facility] [address] [place] [address] Dr. Anurag Solano Neutrophils/100 WBC (Bld) 58.6 % Normal 43.0-75.0 [facility] Comment on above: Performed By: #### C BC #### [facility] [address] [place] [address] Dr. Anurag Solano Platelet mean volume (Bld) [Entitic vol] 9.4 fL Critically low 9.5-13.5 [facility] Comment on above: Performed By: #### C BC #### [facility] [address] [place] [address] Dr. Anurag Solano PLT 282 103/ul Normal 150-450 [facility] Comment on above: Performed By: #### C BC #### [facility] [address] [place] [address] Dr. Anurag Solano RBC 4.47 106/ul Normal 4.20-5.40 [facility] Comment on above: Performed By: #### C BC #### [facility] [address] [place] [address] Dr. Anurag Solano WBC 7.3 103/ul Normal 4.0-11.0 [facility] Comment on above: Performed By: #### C BC #### [facility] [address] [place] [address] Dr. Anurag Solano FREE T4on 01-12-2022 Free T4 [Mass/Vol] 0.89 ng/dL Normal 0.76-1.46 [facility] Comment on above: Performed By: #### F T4 #### [facility] [address] [address] [address] Anurag Solano LIPID PROFILEon 01-12-2022 CHOL-HDL RATIO NORM SEE BELOW Normal [facility] Comment on above: Result Comment: 3.3 - 4.4 LOW RISK 4.4 - 7.1 AVERAGE RISK 7.1 - 11.0 MODERATE RISK >11.0 HIGH RISK Performed By: #### C MP, TSH, LIPID #### [facility] [address] [address] [address] Anurag Solano Cholesterol [Mass/Vol] 213 mg/dL Critically high <=200 [facility] Comment on above: Performed By: #### C MP, TSH, LIPID #### [facility] [address] [address] [address] Anurag Solano Cholesterol in HDL [Mass/Vol] 44 mg/dL Normal 40-60 [facility] Comment on above: Performed By: #### C MP, TSH, LIPID #### [facility] [address] [address] [address] Anurag Solano Cholesterol in LDL [Mass/Vol] 143.2 mg/dL Normal [facility] Comment on above: Performed By: #### C MP, TSH, LIPID #### [facility] [address] [address] [address] Anurag Solano Cholesterol.total/C holesterol in HDL [Mass ratio] 4.8 {ratio} Normal [facility] Comment on above: Performed By: #### C MP, TSH, LIPID #### [facility] [address] [address] [address] Anurag Solano HDL NORMAL > or = 60 mg/dl - LO W CARDIOVASCULAR RISK <40 mg/dl - HIGH CARDIOVASCULAR RISK Normal [facility] Comment on above: Performed By: #### C MP, TSH, LIPID #### [facility] [address] [address] [address] Anurag Solano LDL CALC NORMAL SEE BELOW Normal [facility] Comment on above: Result Comment: <100 mg/dl OPTIMAL 100 - 129 mg/dl NEAR OR ABOVE OPTIMAL 130 - 159 mg/dl BORDERLINE HIGH 160 - 189 mg/dl HIGH >190 mg/dl VERY HIGH Performed By: #### C MP, TSH, LIPID #### [facility] [address] [address] [address] Anurag Solano Triglyceride [Mass/Vol] 129 mg/dL Normal <=150 [facility] Comment on above: Performed By: #### C MP, TSH, LIPID #### [facility] [address] [place] [address] Dr. Anurag Solano VLDL CALC 25.8 mg/dL Normal [facility] Comment on above: Performed By: #### C MP, TSH, LIPID #### [facility] [address] [address] [address] Anurag Solano PROF 14(COMP METB)on 022 Albumin [Mass/Vol] 3.6 g/dL Normal 3.4-5.0 [facility] Comment on above: Performed By: #### C MP, TSH, LIPID #### [facility] [address] [place] [address] Dr. Anurag Solano Albumin/Globulin [Mass ratio] 1.1 {ratio} Normal [facility] Comment on above: Performed By: #### C MP, TSH, LIPID #### [facility] [address] [place] [address] Dr. Anurag Solano ALP [Catalytic activity/Vol] 107 U/L Normal 46-116 [facility] Comment on above: Performed By: #### C MP, TSH, LIPID #### [facility] [address] [place] [address] Dr. Anurag Solano ALT [Catalytic activity/Vol] 19 U/L Normal 14-59 [facility] Comment on above: Performed By: #### C MP, TSH, LIPID #### [facility] [address] [address] [address] Anurag Solano Anion gap [Moles/Vol] 8.3 mmol/L Normal [facility] Comment on above: Performed By: #### C MP, TSH, LIPID #### [facility] [address] [place] [address] Dr. Anurag Solano AST [Catalytic activity/Vol] 17 U/L Normal 15-37 [facility] Comment on above: Performed By: #### C MP, TSH, LIPID #### [facility] [address] [address] [address] Anurag Solano Bilirubin [Mass/Vol] 0.3 mg/dL Normal 0.2-1.0 [facility] Comment on above: Performed By: #### C MP, TSH, LIPID #### [facility] [address] [place] [address] Dr. Anurag Solano Calcium [Mass/Vol] 8.7 mg/dL Normal 8.5-10.1 [facility] Comment on above: Performed By: #### C MP, TSH, LIPID #### [facility] [address] [place] [address] Dr. Anurag Solano Chloride [Moles/Vol] 106 mmol/L Normal 98-107 [facility] Comment on above: Performed By: #### C MP, TSH, LIPID #### [facility] [address] [place] [address] Dr. Anurag Solano CO2 [Moles/Vol] 30.3 mmol/L Normal 21.0-32.0 [facility] Comment on above: Performed By: #### C MP, TSH, LIPID #### [facility] [address] [place] [address] Dr. Anurag Solano Creatinine [Mass/Vol] 1.16 mg/dL Critically high 0.55-1.02 [facility] Comment on above: Performed By: #### C MP, TSH, LIPID #### [facility] [address] [place] [address] Dr. Anurag Solano EGFR-AF SALVADOREAN 56 mL/min/1.73m2 Critically low >=60 [facility] Comment on above: Performed By: #### C MP, TSH, LIPID #### [facility] [address] [place] [address] Dr. Anurag Solano EGFR-NON AF SALVADOREAN 47 mL/min/1.73m2 Critically low >=60 [facility] Comment on above: Performed By: #### C MP, TSH, LIPID #### [facility] [address] [place] [address] Dr. Anurag Solano Globulin (S) [Mass/Vol] 3.3 g/dL Normal [facility] Comment on above: Performed By: #### C MP, TSH, LIPID #### [facility] [address] [address] [address] Anurag Solano Glucose [Mass/Vol] 105 mg/dL Normal 74-106 [facility] Comment on above: Performed By: #### C MP, TSH, LIPID #### [facility] [address] [address] [address] Anurag Solano Potassium [Moles/Vol] 4.6 mmol/L Normal 3.5-5.1 [facility] Comment on above: Performed By: #### C MP, TSH, LIPID #### [facility] [address] [place] [address] Dr. Anurag Solano Protein [Mass/Vol] 6.9 g/dL Normal 6.4-8.2 [facility] Comment on above: Performed By: #### C MP, TSH, LIPID #### [facility] [address] [address] [address] Anurag Solano Sodium [Moles/Vol] 140 mmol/L Normal 136-145 [facility] Comment on above: Performed By: #### C MP, TSH, LIPID #### [facility] [address] [place] [address] Dr. Anurag Solano Urea nitrogen [Mass/Vol] 21.0 mg/dL Critically high 7.0-18.0 [facility] Comment on above: Performed By: #### C MP, TSH, LIPID #### [facility] [address] [place] [address] Dr. Anurag Solano Urea nitrogen/Creatinine [Mass ratio] 18.1 mg/mg Normal [facility] Comment on above: Performed By: #### C MP, TSH, LIPID #### [facility] [address] [address] [address] Anurag Solano TSHon 01-12-2022 TSH 4.450 uIU/mL Critically high 0.358-3.740 [facility] Comment on above: Performed By: #### C MP, TSH, LIPID #### [facility] [address] [address] [address] Anurag Pearson 08-23-2018 JOE Office Visit (KIMBER ) LUMA CARTER ([id number]) 1955 F Date Time Provider Department 08/23/18 1:00 PM SUSHILA KEANE During your visit today, we recorded the following information about you: Pulse Blood pressure Weight Height 75/minute 126/83 72.1 kg 1.626 m Sushila Keane MD 08/24/2018 7:44 PM [facility] [place] [facility] Department of Cardiovascular Medicine SECTION OF CARDIOVASCULAR IMAGING OUTPATIENT VISIT DATE August 23, 2018 OUTPATIENT VISIT TYPE NEW REFERRING PHYSICIAN SELF CHIEF COMPLAINT: Further evaluation of valve disease HISTORY OF PRESENT ILLNESS: Ms. Carter is a 63 year old female from [place], [place] who presents for second opinion regarding dyspnea on exertion, decreased activity tolerance, and fatigue. 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 Relates having a horse related accident which involved a prolonged recovery after which she feels that she became a little deconditioned. History of LBBB, bileaflet mitral valve prolapse with mild MR, mild to moderate tricuspid valve regurgitation, long-standing palpitations (controlled with propanolol). CV risk factors are all well controlled. Suspect mild septal abnormality on prior stress test findings relate to LBBB. Echo shows preserved LVEF. CT chest shows no acute findings (no coronary calcifications noted). PRIOR TESTING: Nuclear Stress 06/28/18: ? This is a combined ECG and Cardiolite report on this Lexiscan stress Cardiolite examination. ? Baseline ECG reveals sinus rhythm rate of 80 be p.m.. Left bundle branch block present. ? With Lexiscan infusion, no significant ECG changes identified. ? Cardiolite scans reveal of small area of decreased uptake in the septum that appears to improve on the rest study. This is in the septum as a very mild abnormality. This is consistent with a small area of mild intensity septal stress-induced ischemia ? Gated Cardiolite reveals normal wall thickening throughout the myocardium. Calculated ejection fraction over 70% ? Low to intermediate risk of cardiac event based on these findings. Holter 06/03/18: Unremarkable Holter monitor with underlying rhythm was sinus rhythm with a bundle branch block with rare atrial and ventricular premature beats. Echo 06/01/18: ? The calculated left ventricular ejection fraction is 48% Low normal to mildly reduced left ventricular ejection fraction ? Normal right ventricular systolic function. ? The mitral valve leaflets appear to be thickened and there is bileaflet prolapse of the mitral valve. Mild EKG 09/24/17: Normal sinus rhythm. Left bundle branch block. Abnormal ECG. No previous ECGs available PAST MEDICAL HISTORY Diagnosis Date - LBBB (left bundle branch block) - Mitral regurgitation - MVP (mitral valve prolapse) PAST SURGICAL HISTORY Procedure Laterality Date - PELVIS OP SURGERY pelvic surgery - S SLING BLADDER 2018 SOCIAL HISTORY Social History Substance Use Topics - Smoking status: Former Smoker Packs/day: 0.10 Years: 1.00 Quit date: 07/23/1976 - Smokeless tobacco: Never Used - Alcohol use No Comment: occasional FAMILY HISTORY Problem Relation Age of Onset - Stroke Mother - Ischemic Heart Disease Mother s/p PCI - other (pacemaker) Mother - Stroke Father - other (atrial fibrillation) Father - other (valvular heart disease) Father ALLERGIES: ALLERGIES No Known Allergies MEDICATIONS: ascorbic acid (VITAMIN C ORAL) Take by mouth once daily. vitamin B complex (B COMPLEX 1 ORAL) Take by mouth once daily. ferrous sulfate 325 mg (65 mg iron) tablet Take 325 mg by mouth as needed. glucosamine HCl (GLUCOSAMINE, BULK, MISC) Take by mouth once daily. MYRBETRIQ 50 mg Tb24 Take 50 mg by mouth once daily. Ca Carb-Mag Cmb 11-D3-Zn Sulf [phone] qr-[id number]-[id number]-mg tab Take by mouth once daily. naproxen (NAPROSYN) 500 mg tablet Take 500 mg by mouth once daily. TURMERIC ORAL once daily. propranolol (INDERAL) 80 mg tablet Take 80 mg by mouth once daily. REVIEW OF SYSTEMS: GENERAL: Negative for: Weight loss or gain, Fever or Chills, Weakness and Sleep difficulties. HEENT: + Glasses, Hearing Impairment, Ringing in Ears Negative for: Headache, Impaired Vision, Nosebleeds, Poor dental care, Bleeding Gums, Dentures NECK: + Stiffness Negative for: Swelling, Pain RESPIRATORY: + Shortness of breath Negative for: Cough, Blood in Sputum, Wheezing, Apnea GASTROINTESTINAL: Negative for: Trouble swallowing, Heartburn, Change in bowel habits, Blood in stool, Dark black stools MUSCULOSKELETAL: + Muscle/ joint pain Negative for: Stiffness , Joint swelling NEUROLOGIC/PSYCHIATRIC: Negative for: Weakness, Paralysis, Numbness, Tingling, Tremor, Nervousness, Depressed mood, Memory loss SKIN: Negative for: Rashes, Itching HEMATOLOGICAL/LYMPHATIC : Negative for: Easy bruising , Easy bleeding ENDOCRINE: + Excessive sweating, Frequent urination, Frequent thirst Negative for: Heat or cold intolerance PHYSICAL EXAMINATION: BP 126/83 Pulse 75 Ht 162.6 cm (5' 4 ) Wt 72.1 kg (159 lb) SpO2 96% BMI 27.29 kg/m? General: In no acute distress. Skin: No clubbing, no cyanosis. Eyes: Extra ocular movements intact Oropharynx: In good repair. Neck: No jugular venous distention, no carotid bruits. Lungs: Clear to auscultation bilaterally, no wheezing or rhonchi. Heart: Regular rhythm, PMI not displaced, S1, S2 normal, no S3, no S4, and soft systolic murmur. Abdomen: Soft, nontender. Extremities: No peripheral edema. Neuro: Oriented to person, place and time, alert, cooperative, gait coordinated. CARDIOVASCULAR MEDICINE TESTING: Electrocardiogram: NORMAL SINUS RHYTHM COMPLETE LEFT BUNDLE BRANCH BLOCK ABNORMAL ECG Ventricular Rate : 67 ?BPM Atrial Rate : 67 ?BPM P-R Interval : 180 ?ms QRS Duration : 130 ?ms Q-T Interval : 460 ?ms QTC Calculation(Bezet) : 486 ?ms Echocardiogram: - Technically difficult exam due to body habitus. - Exam indication: Initial evaluation valvular heart disease - The left ventricle is normal in size. Left ventricular systolic function is normal. EF = 69 ? 5% (2D biplane) GLS -17.8%. - The right ventricle is normal in size. Right ventricular systolic function is normal. - Mitral valve prolapse with trivial mitral regurgitation. - There is trace (trace - 1+) tricuspid valve regurgitation. CT Thorax: No CT evidence of acute abnormality. Lung parenchyma and pleura: ?No suspicious pulmonary nodules or airspace consolidation is identified. ?There is focal scarring in the medial right lower lobe, related to adjacent vertebral body osteophytes. ?There is no pleural effusion. ?The trachea and central airways appear patent, devoid of endobronchial lesion. Thoracic inlet, heart, and mediastinum: There is no lymphadenopathy in the chest. The cardiac chambers are normal in size. There is no pericardial effusion or thickening. The thoracic aorta and pulmonary arteries are normal in calibre. Bones and soft tissues: ?Chest wall soft tissues are unremarkable. ?There is mild right convex scoliosis of the thoracic spine. ? Endplate degenerative changes are present within the thoracic spine. Upper abdomen: ?No abnormality in the imaged upper abdomen. I have personally reviewed the Electrocardiogram and Echocardiogram and CT. IMPRESSION: Ms. Carter is a 63 year old female from [place], [place] who presents for second opinion regarding dyspnea on exertion, decreased activity tolerance, and fatigue. 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 Relates having a horse related accident which involved a prolonged recovery after which she feels that she became a little deconditioned. History of LBBB, bileaflet mitral valve prolapse with mild MR, mild to moderate tricuspid valve regurgitation, long-standing palpitations (controlled with propanolol). CV risk factors are all well controlled. Suspect mild septal abnormality on prior stress test findings relate to LBBB. Echo shows preserved LVEF. CT chest shows no acute findings (no coronary calcifications noted). PLAN AND RECOMMENDATIONS: Primary prevention. Follow-up with PCP at least 12 monthly and here prn if symptoms don't settle/improve. CONTACT INFORMATION: Sushila Keane MD, PhD, [employer] Domestic Violence Counseloradjunct faculty, [facility], Staff, Section of Cardiovascular Imaging, Co-Director Cardio-Oncology Center, Directional Survey Drafter of the Echocardiographic Lab, [facility] Dept. Of Cardiovascular Medicine, [address] / [address] [place], [place] [address] Appt: [phone] Referring Provider: SELF [[id number]] Allergies As of Date: 08/23/2018 (No Known Allergies) Date Reviewed: 08/23/2018 Reviewed by: Kathy Kapadia Ma - Fully Assessed Primary Visit Diagnosis:LBBB (left bundle branch block) [I44.7] Other Visit Diagnoses:Non-rheumatic mitral regurgitation [I34.0] Non-rheumatic tricuspid valve insufficiency [I36.1] Palpitations [R00.2] Prescriptions as of 08/23/2018 Sig: VITAMIN C ORAL Take by mouth once daily. B COMPLEX 1 ORAL Take by mouth once daily. FERROUS SULFATE 325 MG (65 MG* Take 325 mg by mouth as neede* GLUCOSAMINE (BULK) MISC Take by mouth once daily. MYRBETRIQ 50 MG TABLET,EXTEND* Take 50 mg by mouth once adrien* CALCIUM CARB-VIT D3-MAGNESIUM* Take by mouth once daily. NAPROXEN 500 MG TABLET Take 500 mg by mouth once madhavi* TURMERIC ORAL once daily. PROPRANOLOL 80 MG TABLET Take 80 mg by mouth once adrien* Problem List As Of Date: 08/23/2018 (None) Disposition: Return in about 5 years (around 08/23/2023). Follow-up and Disposition History Recorded Encounter Status:Closed by SUSHILA KEANE MD on 08/24/18 Normal [facility] [address] CHEST WO IVCONon 08-23-19 CT CHEST WO IVCON * * *Final Report* * * DATE OF EXAM: Aug 23 2018 4:09PM [facility] 0541 - CT CHEST WO IVCON / PROCEDURE REASON: Shortness of breath * * * * Physician Interpretation * * * * EXAMINATION: CHEST CT WITHOUT CONTRAST CLINICAL HISTORY: Shortness of breath Technique: Spiral CT acquisition of the chest from the thoracic inlet to the upper abdomen without contrast. MQ: [id number] CT Dose-Length Product: 156 mGy*cm CT Dose Reduction Employed: Automated exposure control (AEC) Comparison: None RESULT: Limitations: None. Lines, tubes, and devices: None. Lung parenchyma and pleura: No suspicious pulmonary nodules or airspace consolidation is identified. There is focal scarring in the medial right lower lobe, related to adjacent vertebral body osteophytes. There is no pleural effusion. The trachea and central airways appear patent, devoid of endobronchial lesion. Thoracic inlet, heart, and mediastinum: There is no lymphadenopathy in the chest. The cardiac chambers are normal in size. There is no pericardial effusion or thickening. The thoracic aorta and pulmonary arteries are normal in calibre. Bones and soft tissues: Chest wall soft tissues are unremarkable. There is mild right convex scoliosis of the thoracic spine. Endplate degenerative changes are present within the thoracic spine. Upper abdomen: No abnormality in the imaged upper abdomen. IMPRESSION: No CT evidence of acute abnormality. Home Administrator: PSCB Transcribe Date/Time: Aug 23 2018 4:55P Dictated by : RASHMI AUSTIN MD This examination was interpreted and the report reviewed and electronically signed by: RASHMI AUSTIN MD on Aug 23 2018 4:59PM EST [id number] Normal [facility] ECG COMPLETEon 08-23-2018 ECG COMPLETE NAME : LUMA CARTER PID : [id number] : 1955 Gender : Female Race : ORD : [id number] Procedure Date : Aug 23 2018 12:51:52 Edit Date : Aug 27 2018 13:04:58 Diagnosis:NORMAL SINUS RHYTHM COMPLETE LEFT BUNDLE BRANCH BLOCK ABNORMAL ECG Confirmed by SANJU DUFF M.D. ([id number]) on 08/27/2018 12:55:44 PM Ventricular Rate : 67 BPM Atrial Rate : 67 BPM P-R Interval : 180 ms QRS Duration : 130 ms Q-T Interval : 460 ms QTC Calculation(Bezet) : 486 ms P Rac[place] : 22 degrees R Racine : 11 degrees T Racine : 9 degrees Test Reason : Location : 314 : J14 Overread By : SANJU DUFF M.D. Edited By : SANJU DUFF M.D. Referred By : SUSHILA KEANE Acquired by : TRUNG DIAZ [facility] PROGRESSon 08-23-2018 Protein mass conc HNO ID: [id number] Author: RADHA Gaines (Ct) Service: Radiology Author Type: Clinical Low Pressure Boiler Operator Type: Progress Notes Filed: 08/23/2018 4:07 PM Note Text: Radiology Service Progress Note PATIENT NAME: Luma Carter DATE OF SERVICE: August 23, 2018 TIME: 4:04 PM PATIENT IDENTITY VERIFICATION COMPLETED USING TWO (2) METHODS: Patient confirmed name verbally and ID band matches.. PATIENT GENDER DATA: Female. status: : No status: NO. PATIENT RELEVANT IMPLANT DATA REVIEWED: Yes RADIOLOGY DEPARTMENT: CT; Exam(s) Completed: Chest PERIPHERAL IV DATA: Not applicable SIGNED BY: radha gaines August 23, 2018 4:04 PM [facility] Protein [facility] conc HNO ID: [id number] Author: Sushila Keane Service: (none) Author Type: Physician Type: Progress Notes Filed: 08/24/2018 7:44 PM Note Text: [facility] [place] [facility] Department of Cardiovascular Medicine SECTION OF CARDIOVASCULAR IMAGING OUTPATIENT VISIT DATE August 23, 2018 OUTPATIENT VISIT TYPE NEW REFERRING PHYSICIAN SELF CHIEF COMPLAINT: Further evaluation of valve disease HISTORY OF PRESENT ILLNESS: Ms. Carter is a 63 year old female from [place], [place] who presents for second opinion regarding dyspnea on exertion, decreased activity tolerance, and fatigue. 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 Relates having a horse related accident which involved a prolonged recovery after which she feels that she became a little deconditioned. History of LBBB, bileaflet mitral valve prolapse with mild MR, mild to moderate tricuspid valve regurgitation, long-standing palpitations (controlled with propanolol). CV risk factors are all well controlled. Suspect mild septal abnormality on prior stress test findings relate to LBBB. Echo shows preserved LVEF. CT chest shows no acute findings (no coronary calcifications noted). PRIOR TESTING: Nuclear Stress 06/28/18: ? This is a combined ECG and Cardiolite report on this Lexiscan stress Cardiolite examination. ? Baseline ECG reveals sinus rhythm rate of 80 be p.m.. Left bundle branch block present. ? With Lexiscan infusion, no significant ECG changes identified. ? Cardiolite scans reveal of small area of decreased uptake in the septum that appears to improve on the rest study. This is in the septum as a very mild abnormality. This is consistent with a small area of mild intensity septal stress-induced ischemia ? Gated Cardiolite reveals normal wall thickening throughout the myocardium. Calculated ejection fraction over 70% ? Low to intermediate risk of cardiac event based on these findings. Holter 06/03/18: Unremarkable Holter monitor with underlying rhythm was sinus rhythm with a bundle branch block with rare atrial and ventricular premature beats. Echo 06/01/18: ? The calculated left ventricular ejection fraction is 48% Low normal to mildly reduced left ventricular ejection fraction ? Normal right ventricular systolic function. ? The mitral valve leaflets appear to be thickened and there is bileaflet prolapse of the mitral valve. Mild EKG 09/24/17: Normal sinus rhythm. Left bundle branch block. Abnormal ECG. No previous ECGs available PAST MEDICAL HISTORY Diagnosis Date - LBBB (left bundle branch block) - Mitral regurgitation - MVP (mitral valve prolapse) PAST SURGICAL HISTORY Procedure Laterality Date - PELVIS OP SURGERY pelvic surgery - S SLING BLADDER 2018 SOCIAL HISTORY Social History Substance Use Topics - Smoking status: Former Smoker Packs/day: 0.10 Years: 1.00 Quit date: 07/23/1976 - Smokeless tobacco: Never Used - Alcohol use No Comment: occasional FAMILY HISTORY Problem Relation Age of Onset - Stroke Mother - Ischemic Heart Disease Mother s/p PCI - other (pacemaker) Mother - Stroke Father - other (atrial fibrillation) Father - other (valvular heart disease) Father ALLERGIES: ALLERGIES No Known Allergies MEDICATIONS: ascorbic acid (VITAMIN C ORAL) Take by mouth once daily. vitamin B complex (B COMPLEX 1 ORAL) Take by mouth once daily. ferrous sulfate 325 mg (65 mg iron) tablet Take 325 mg by mouth as needed. glucosamine HCl (GLUCOSAMINE, BULK, MISC) Take by mouth once daily. MYRBETRIQ 50 mg Tb24 Take 50 mg by mouth once daily. Ca Carb-Mag Cmb 11-D3-Zn Sulf [phone] lo-ezhy-or-mg tab Take by mouth once daily. naproxen (NAPROSYN) 500 mg tablet Take 500 mg by mouth once daily. TURMERIC ORAL once daily. propranolol (INDERAL) 80 mg tablet Take 80 mg by mouth once daily. REVIEW OF SYSTEMS: GENERAL: Negative for: Weight loss or gain, Fever or Chills, Weakness and Sleep difficulties. HEENT: + Glasses, Hearing Impairment, Ringing in Ears Negative for: Headache, Impaired Vision, Nosebleeds, Poor dental care, Bleeding Gums, Dentures NECK: + Stiffness Negative for: Swelling, Pain RESPIRATORY: + Shortness of breath Negative for: Cough, Blood in Sputum, Wheezing, Apnea GASTROINTESTINAL: Negative for: Trouble swallowing, Heartburn, Change in bowel habits, Blood in stool, Dark black stools MUSCULOSKELETAL: + Muscle/ joint pain Negative for: Stiffness , Joint swelling NEUROLOGIC/PSYCHIATRIC: Negative for: Weakness, Paralysis, Numbness, Tingling, Tremor, Nervousness, Depressed mood, Memory loss SKIN: Negative for: Rashes, Itching HEMATOLOGICAL/LYMPHATIC : Negative for: Easy bruising , Easy bleeding ENDOCRINE: + Excessive sweating, Frequent urination, Frequent thirst Negative for: Heat or cold intolerance PHYSICAL EXAMINATION: BP 126/83 Pulse 75 Ht 162.6 cm (5' 4 ) Wt 72.1 kg (159 lb) SpO2 96% BMI 27.29 kg/m? General: In no acute distress. Skin: No clubbing, no cyanosis. Eyes: Extra ocular movements intact Oropharynx: In good repair. Neck: No jugular venous distention, no carotid bruits. Lungs: Clear to auscultation bilaterally, no wheezing or rhonchi. Heart: Regular rhythm, PMI not displaced, S1, S2 normal, no S3, no S4, and soft systolic murmur. Abdomen: Soft, nontender. Extremities: No peripheral edema. Neuro: Oriented to person, place and time, alert, cooperative, gait coordinated. CARDIOVASCULAR MEDICINE TESTING: Electrocardiogram: NORMAL SINUS RHYTHM COMPLETE LEFT BUNDLE BRANCH BLOCK ABNORMAL ECG Ventricular Rate : 67 ?BPM Atrial Rate : 67 ?BPM P-R Interval : 180 ?ms QRS Duration : 130 ?ms Q-T Interval : 460 ?ms QTC Calculation(Bezet) : 486 ?ms Echocardiogram: - Technically difficult exam due to body habitus. - Exam indication: Initial evaluation valvular heart disease - The left ventricle is normal in size. Left ventricular systolic function is normal. EF = 69 ? 5% (2D biplane) GLS -17.8%. - The right ventricle is normal in size. Right ventricular systolic function is normal. - Mitral valve prolapse with trivial mitral regurgitation. - There is trace (trace - 1+) tricuspid valve regurgitation. CT Thorax: No CT evidence of acute abnormality. Lung parenchyma and pleura: ?No suspicious pulmonary nodules or airspace consolidation is identified. ?There is focal scarring in the medial right lower lobe, related to adjacent vertebral body osteophytes. ?There is no pleural effusion. ?The trachea and central airways appear patent, devoid of endobronchial lesion. Thoracic inlet, heart, and mediastinum: There is no lymphadenopathy in the chest. The cardiac chambers are normal in size. There is no pericardial effusion or thickening. The thoracic aorta and pulmonary arteries are normal in calibre. Bones and soft tissues: ?Chest wall soft tissues are unremarkable. ?There is mild right convex scoliosis of the thoracic spine. ? Endplate degenerative changes are present within the thoracic spine. Upper abdomen: ?No abnormality in the imaged upper abdomen. I have personally reviewed the Electrocardiogram and Echocardiogram and CT. IMPRESSION: Ms. Carter is a 63 year old female from [place], [place] who presents for second opinion regarding dyspnea on exertion, decreased activity tolerance, and fatigue. 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 Relates having a horse related accident which involved a prolonged recovery after which she feels that she became a little deconditioned. History of LBBB, bileaflet mitral valve prolapse with mild MR, mild to moderate tricuspid valve regurgitation, long-standing palpitations (controlled with propanolol). CV risk factors are all well controlled. Suspect mild septal abnormality on prior stress test findings relate to LBBB. Echo shows preserved LVEF. CT chest shows no acute findings (no coronary calcifications noted). PLAN AND RECOMMENDATIONS: Primary prevention. Follow-up with PCP at least 12 monthly and here prn if symptoms don't settle/improve. CONTACT INFORMATION: Sushila Keane MD, PhD, [facility] Domestic Violence Counseloradjunct faculty, [facility] of [facility], Staff, Section of Cardiovascular Imaging, Co-Director Cardio-Oncology Center, Directional Survey Drafter of the Echocardiographic Lab, [facility] Dept. Of Cardiovascular Medicine, [address] [place] [address] Ave. / [address] [address] Appt: [phone] Normal [facility] CNCOon 07-31-2018 CNCO Letter Text Sushila Keane MD [address]/Desk [address] [address] Appts.: [phone] July 31, 2018 Dear Ms. Carter Thank you for choosing the [facility] [place] for your cardiac care. We are pleased to offer you an appointment with Sushila Keane MD, PhD on August 23, 2018 at 12:15 PM. Appointment Preparation Please review the attached appointment schedule and follow all instructions that are given. Be sure to bring this appointment schedule with you as well. Your Medical History and Records Below is a checklist with information you must send to your doctor's office prior to your appointment. This information is required by the doctor prior to your visit to best evaluate and treat your medical condition. Records must be obtained from your physician or the hospital where you have received care previously. You may use this letter as a guide for what is required. You may need to sign a release of information to obtain these records. It is important that we receive your outside records to provide the best care to you. Please fax these results to your [facility] doctor at least one week prior to your appointment. Faxing is the preferred method to receive records. If records must be mailed rather than faxed, they should be sent via mail or express mail directly to the physician using the address and desk number provided in this letter. Items needed for your visit: Your most recent hospital discharge summary related to your current heart problem If you have had any of the following diagnostic tests or procedures listed below, please obtain the film (CD) if applicable and the report Operative notes from previous heart surgeries Most recent cardiac catheterization (CD in DICOM format and report) Most recent echocardiogram (CD in DICOM format and report) Most recent stress test Most recent cardiac CT and MRI (CD and report) Most recent EKG (report and actual tracing; include any abnormal EKGs or rhythm disturbances) Most recent electrophysiology testing (report and actual tracing) Most recent labwork Most recent emergency room visit information Your device identification card if you have an implanted device such as a pacemaker or defibrillator or stent Having this information will give us the best information about your illness and help prevent delays in evaluation and treatment on the day of your appointment. If you are having difficulty obtaining your records, please contact the physician?s office for assistance. Please bring all of your medications in their original bottles. Include all jolf-lgo-yylxuhe pills or remedies. This helps avoid confusion over the dosages and names of your current medications. You are encouraged to bring a family member or friend on the day of your appointment, though it is not absolutely necessary. Medication Guidelines Take all of your medications as prescribed, unless you have been given other instructions. You may need to fast or adjust diabetic medications depending on what test or procedures you may have scheduled. Appointment Time The time you are asked to report for your appointment or procedure includes the time necessary to provide you with additional instructions or preparations. There may be a delay in the time of your procedure or seeing your physician because of these preparations. It is our commitment to provide each patient with the best care. We will do our best to make sure that you and your family members are as comfortable as possible during your stay. Parking Oil Pit Attendant parking is available from 6:00 a.m. to 7:00 p.m. in front of the Main [facility] ([facility], [place]). You can also park in the Parking Garage located on [facility] between [address]. Wheelchairs are available in the garage or at the [facility] Admitting and Registration Desk. Discount parking vouchers are available - please ask your parking dry heat cabinet attendant or visit the - Pill Machine Operator's Office. Arrival Please report to the [facility] [place] Registration Desk to start your appointment. The desk is located on the first floor of the [facility]. Please show the entry level receptionist the enclosed appointment schedule and your insurance information. During Your Appointment A nurse, physician admin assistant, nurse practitioner, clinical nurse specialist, or fellow (doctor) may see you prior to your appointment with your physician. He or she will review the information from your checklist and will ask you questions regarding your medical history. A physical examination may be performed at this time. You may be scheduled for additional tests that may include blood work, x-rays, EKG, or other diagnostic tests after you see your physician. Appointment Duration If this is your first visit, please plan on being at the [facility] for four hours. If You Have Questions or Need to Reschedule Your Appointment If for some reason you are unable to keep your appointment or you have any questions, please notify us as soon as possible by calling or [phone]. [phone]. We look forward to meeting you. Sincerely yours, Scheduling Office [facility] [place] Enclosure Normal [facility] Basic Metabolic Panelon 08-31 Anion gap 8 mmol/L Normal 7-13 [facility] Calcium 10.0 mg/dL Normal 8.6-10.2 [facility] Chloride 103 mmol/L Normal 98-107 [facility] CO2 30 mmol/L Critically high 22-29 [facility] Creatinine 0.88 mg/dL Normal 0.50-0.90 [facility] eGFR (black) mL/min/{1.73_m2} Normal >60 [facility] Comment on above: Result Comment: >60 mL/min/1.73m2 EGFR, calc. for ages 18 and older using theMDRD formula (not corrected for weight), is valid for stablerenal function. eGFR (MDRD) mL/min/{1.73_m2} Normal >60 [facility] Comment on above: Result Comment: >60 mL/min/1.73m2 EGFR, calc. for ages 18 and older using theMDRD formula (not corrected for weight), is valid for stablerenal function. Glucose mass conc 99 mg/dL Normal 74-109 [facility] Potassium molar conc 4.9 mmol/L Normal 3.5-5.1 [facility] Sodium 141 mmol/L Normal 132-144 [facility] Urea nitrogen 22 mg/dL Normal 8-23 [facility] CBC With Platelet No Differe ntialon 09-24-2017 Erythrocyte distribution width Auto Ratio (RBC) 13.2 % Normal 11.5-14.5 [facility] Erythrocytes (RBC) 4.37 10*6/uL Normal 4.20-5.40 [facility] Hematocrit (HCT) 39.9 % Normal 37.0-47.0 [facility] Hemoglobin mass conc (Bld) 13.4 g/dL Normal 12.0-16.0 [facility] MCH 30.6 pg Normal 27.0-31.3 [facility] MCHC mass conc (RBC) 33.5 % Normal 33.0-37.0 [facility] MCV 91.4 fL Normal 82.0-100.0 [facility] Platelets 256 10*3/uL Normal 130-400 [facility] WBC (Leukocytes) 7.3 10*3/uL Normal 4.8-10.8 [facility] Extra Tube, Blood Bankon Bilirubin (total) PATIENT: PETAR VILLALOBOS LOC: [facility] BILL# : [id number] : 1955 SEX: FORDERED BY: SHAKIR FERMIN ORDERED : 09/24/2017 14:13 COLLECTED: 09/24/2017 13:52ORDER : [id number] RECEIVED : 09/24/2017 13:52 TEST NAME RESULT UNITS RANGES ABN FL STExtra Tube, Blood Bank ADEEL F --------- Normal [facility] RBC LRon 09-24-2017 Erythrocytes (RBC) PATIENT: PETAR VILLALOBOS LOC: [facility] BILL# : [id number] : 1955 SEX: FORDERED BY: SHAKIR FERMIN ORDERED : 09/26/2017 13:35 COLLECTED: 09/24/2017 13:52ORDER : [id number] RECEIVED : 09/24/2017 13:52 TEST NAME RESULT UNITS RANGES ABN FL STRBC LR E0382 RBC LR W0 F --------- Normal [facility] Type and Screen Capture 3 sc rn cellon 09-24-2017 Bilirubin (total) PATIENT: PETAR VILLALOBOS [facility]: [facility]# : [id number] : 1955 SEX: FORDERED BY: SHAKIR FERMIN ORDERED : 09/24/2017 11:58 COLLECTED: 09/24/2017 13:52ORDER : [id number] RECEIVED : 09/24/2017 13:52 TEST NAME RESULT UNITS RANGES ABN FL STABORH Capture O POS FAntibody 3 Cell Scrn Captu NEG F --------- Normal [facility] Culture, Urineon 08-10-2017 Culture, Urine ORDERED BY: LINDA SCHILLING: Urine Clean Catch COLLECTED: 08/10/17 14:46ANTIBIOTICS AT ADEEL.: RECEIVED : 08/10/17 15:13Culture, Urine FINAL 08/12/17 07:48 No growth 24 hours Normal [facility] Urinalysis, reflex to micros copicon 08-10-2017 Bilirubin Ql (U) Negative Normal Negative [facility] Urine, clarity CLOUDY Abnormal Clear [facility] Urine, color Yellow Normal [facility] Urine, glucose presence Negative Normal Negative [facility] Urine, hemoglobin presence LARGE Abnormal Negative [facility] Urine, ketones presence Negative Normal Negative [facility] Urine, leukocyte esterase presence Negative Normal Negative [facility] Urine, nitrite presence Negative Normal Negative [facility] Urine, pH 5.0 [pH] Normal 5.0-9.0 [facility] Urine, protein presence Negative Normal Negative [facility] Urine, specific gravity 1.031 Normal 1.005-1.03 [facility] Urine, urobilinogen 0.2 {Jigar'U}/dL Normal < 2.0 [facility] Urine Microscopicon 08-10-19 18 Urine, bacteria in sediment Many Normal [facility] Urine, epithelial cells presence in sediment 3-5 Normal [facility] Urine, erythrocytes 10-20 Abnormal 0-2 [facility] Urine, leukocytes 0-2 Normal 0-5 [facility] PELVIS 1 OR 2 VWSon 03-16-20 17 [facility]ELVIS [facility] [address] [place] [address] =====Patient Name: LUMA CARTER : 1955Sex: FAge: Race: WhiteMRN: [id number]. Location: 84Patient Status: Date: 03/16/2017 11:00:00 AMCompleted Date: 03/16/2017 11:26 AMRequesting Provider: MAXIME OSPINA Attending Provider: Report Copy To: Signs & Symptoms: S32.9XXD Fx unsp parts of lumbosacr spin \EANDE\ pelv, 7thD M02Pqycwyu: AthenaComments: , , Views (X-RAY, PELVIS): Radiologic Protocol , , , Ordering Provider - MAXIME OSPINA PA-C , Exam: PELVIS 1 OR 2 VWSAccession #: [id number] PELVIS 1 OR 2 VWS 03/16/2017 11:26 AM EDT SIGNS AND SYMPTOMS: S32.9XXD Fx unsp parts of lumbosacr spin \EANDE\ pelv, 7thD I10 TECHNOLOGIST COMMENTS: History of pelvic surgery 10/24/2016. Ortho follow up. QUESTION FOR THE RADIOLOGIST: , , Views (X-RAY, PELVIS): Radiologic Protocol , , , Ordering Provider Otto KAN-C , PROTOCOL: AP(PA) view was obtained. 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 Transcribed by: [email or web address], User Resident: Electronically Signed by: ADDY HERNANDEZ @ 03/16/2017 02:12 PM Normal [facility] Comment on above: Order Comment: , , V iews (X-RAY, PELVIS): Radiologic Protocol , , , Ordering Provider Otto KAN-C , PELVIS 1 OR 2 Son 02-24-20 17 PELVIS 1 OR 2 [facility] [address] [place] [address] =====Patient Name: LUMA CARTER : 1955Sex: FAge: Race: WhiteMRN: [id number]. Location: 84Patient Status: Date: 02/23/2017 9:15:00 AMCompleted Date: 02/23/2017 09:24 AMRequesting Provider: MAXIME OSPINA Attending Provider: Report Copy To: Signs & Symptoms: S32.9XXD Fx unsp parts of lumbosacr spin \EANDE\ pelv, 7thD N89Tvafsmc: AthenaComments: , , Views (X-RAY, PELVIS): AP , , , Ordering Provider - MAXIME OSPINA PA-C , Exam: PELVIS 1 OR 2 VWSAccession #: [id number] PELVIS 1 OR 2 VWS 02/23/2017 9:24 AM EDT SIGNS AND SYMPTOMS: S32.9XXD Fx unsp parts of lumbosacr spin \EANDE\ pelv, 7thD I10 TECHNOLOGIST COMMENTS: Ortho follow up. Patient complains of pain in pelvis and in her tailbone when sitting. History of pelvis surgery on 10/24/2016. QUESTION FOR THE RADIOLOGIST: , , Views (X-RAY, PELVIS): AP , , , Ordering Provider - MAXIME OSPINA PA-C , PROTOCOL: AP(PA) view was obtained. COMPARISON: January 11, 2017 FINDINGS: Soft tissues:Unchanged Bones:Unchanged Joints:Unchanged IMPRESSION: Stable plate fixation across symphysis pubis with residual widening of approximately 15 mm and unchanged sclerosis along the SI joints Electronically signed by:Addy Hernandez. Transcribed by: [email or web address], User Resident: Electronically Signed by: ADDY HERNANDEZ @ 02/23/2017 01:09 PM Normal [facility] Comment on above: Order Comment: , , V iews (X-RAY, PELVIS): AP , , , Ordering Provider - MAXIME OSPINA PA-C , PELVIS 1 OR 2 VWSon 01-12-20 17 PELVIS 1 OR 2 VWS [facility] [address] [place] [address] =====Patient Name: LUMA CARTER : 1955Sex: FAge: Race: WhiteMRN: [id number]. Location: 84Patient Status: Date: 01/11/2017 1:25:00 PMCompleted Date: 01/11/2017 01:31 PMRequesting Provider: MAXIME OSPINA Attending Provider: Report Copy To: Signs & Symptoms: S32.9XXD Fx unsp parts of lumbosacr spin \EANDE\ pelv, 7thD A57Bouexca: AthenaComments: , , Views (X-RAY, PELVIS): Radiologic Protocol , , , Ordering Provider - MAXIME OSPINA PA-C , Exam: PELVIS 1 OR 2 VWSAccession #: [id number] PELVIS 1 OR 2 VWS 01/11/2017 1:31 PM EDT SIGNS AND SYMPTOMS: S32.9XXD Fx unsp parts of lumbosacr spin \EANDE\ pelv, 7thD I10 TECHNOLOGIST COMMENTS: surgery 10-24-2016 on pelvis injury to pelvis 10-23-2016 fell off a horse QUESTION FOR THE RADIOLOGIST: , , Views (X-RAY, PELVIS): Radiologic Protocol , , , Ordering Edward KAN-C , PROTOCOL: AP(PA) view was obtained. 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 Slight widening of the symphysis pubis is unchanged from the prior study. The remainder of the bony ring of the pelvis is intact. 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 Electronically signed by:Aaron Rodgers. Transcribed by: [email or web address], User Resident: Electronically Signed by: AARON RODGERS @ 01/11/2017 03:00 PM Normal [facility] Comment on above: Order Comment: , , V iews (X-RAY, PELVIS): Radiologic Protocol , , , Ordering Provider - MAXIME OSPINA PA-C , Encounters Encounter Date Encounter Type Care Provider Facility Start: 06-22-2023 Evaluation and management of inpatient AUSTYN LYONS [facility] Start: [facility]-21[facility]2023 [facility]: 06-19-2023 Evaluation and management of inpatient SAKINA RIOS [facility] Start: 06-19-2023 End: 06-22-2023 Evaluation and management of inpatient DEBI AYALA [facility] Start: 01-12-2022 End: 01-13-[address] WOO OSHEA Facility: Start: 09-29-2020 End: 09-03-2020 Patient encounter procedure Sabrina Caceres Work Phone: [facility] Work Phone: Start: 09-03-2020 End: 09-03-2020 Patient encounter procedure Ruthie Smiley Work Phone: [facility] Work Phone: Start: 08-23-2018 End: 08-23-2018 Patient encounter procedure SUSHILA KEANE [facility] Start: 09-27-2017 End: 09-27-2017 [facility] Start: 09-24-2017 End: 09-29-2017 [facility] Start: 05-02-2017 End: 06-01-2017 Ambulatory MAXIME OSPINA Facility:[facility] Start: 04-01-2017 End: 05-02-2017 Ambulatory MAXIME OSPINA Facility:[facility] Start: 03-16-2017 End: 03-17-2017 Ambulatory MAXIME OSPINA Facility:[facility] Start: 03-02-2017 End: 04-01-2017 Ambulatory MAXIME OSPINA Facility:[facility] Start: 02-23-2017 End: 02-24-2017 Ambulatory MAXIME OSPINA Facility:[facility] Start: 01-30-2017 End: 03-02-2017 Ambulatory MAXIME OSPINA Facility:[facility] Start: 01-11-2017 End: 01-12-2017 Ambulatory MAXIME OSPINA Facility:[facility] Procedures Date Procedure Procedure Detail Performing Clinician Start: 09-29-2020 Imm. administration COVID19 Moderna dose 2 Sabrina Morris Work Phone: Start: 09-29-2020 SARS-CoV-2 vaccine, 0.5ml Moderna Sabrina Morris Work Phone: Start: 09-03-2020 Imm. administration COVID19 Moderna dose 1 Ruthie Hoynliam Work Phone: Start: 09-03-2020 SARS-CoV-2 vaccine, 0.5ml Moderna Ruthie Hoyng Work Phone: Start: 09-27-2017 INCENTIVE SPIROMETRY RT TAREK DBOUK Start: 09-27-2017 CATHETER CARE [facility]K [facility] Start: 09-27-2017 AMBULATE PATIENT TAREK DBOUK Start: 09-27-2017 FULL CODE TAREK DBOU K Start: 09-27-2017 INITIATE OXYGEN THER APY PROTOCOL TAREK DBOUK Start: 09-27-2017 PLACE INTERMITTENT PNEUMATIC COMPRESSION DEVICE TAREK DBOUK Start: 09-27-2017 TOBACCO CESSATION EDUCATION TAREK DBOUK Start: 09-27-2017 DISCHARGE PATIENT TAREK DBOUK Start: 09-27-2017 INCENTIVE SPIROMETRY RT TAREK DBOUK Start: 09-27-2017 INCENTIVE SPIROMETRY RT TAREK DBOUK Start: 09-27-2017 INITIATE OXYGEN THER APY PROTOCOL TAREK DBOUK Start: 09-27-2017 ASSESS TAREK DBOU K Start: 09-27-2017 BEDREST TAREK DBOU K Start: 09-27-2017 Continuous pulse oximetry TAREK DBOUK Start: 09-27-2017 ENCOURAGE DEEP BREAT MARIA C AND COUGHING TAREK DBOUK Start: 09-27-2017 INCENTIVE SPIROMETRY RT TAREK DBOUK Start: 09-27-2017 INITIATE OXYGEN THER APY PROTOCOL TAREK DBOUK Start: 09-27-2017 NEURO/VASCULAR CHECKS T [place] DBOUK Start: 09-27-2017 NOTIFY PHYSICIAN (SPECIFY) TAREK DBOUK Start: 09-27-2017 NURSING COMMUNICATION T [place] DBOUK Start: 09-27-2017 VITAL SIGNS TAREK DBOU K Start: 09-27-2017 PLACE INTERMITTENT PNEUMATIC COMPRESSION DEVICE TAREK DBOUK Start: 09-27-2017 DIET NPO, NOW TAREK DBO UK Start: 09-27-2017 INITIATE OXYGEN THER APY PROTOCOL TAREK DBOUK Start: 09-27-2017 NOTIFY PHYSICIAN (SPECIFY) TAREK DBOUK Start: 09-27-2017 PULSE OXIMETRY SPOT CHECK TAREK DBOUK Start: 09-27-2017 VITAL SIGNS TAREK DBOU K Start: 09-24-2017 BASIC METABOLIC PANEL T [place] DBOUK Start: 09-24-2017 CBC TAREK DBOU K Start: 09-24-2017 EXTRA TUBE TAREK DBOU K Start: 09-24-2017 PREPARE RBC (CROSSMATCH) TAREK DBOUK Start: 09-24-2017 TYPE AND SCREEN TAREK Kelly BROWN Start: 09-24-2017 EKG 12-LEAD TAREK DBOU K Plan of Treatment Date Care Activity Detail Author Start: 09-29-2020 2nd Dose- COVID Vaccine [facility] Work Phone: Immunizations Immunization Date Immunization Notes Care Provider Martinez carlson 09-29-2020 2nd Dose MODERNA COV ID-19 Vaccine; Translations: [Moderna COVID-19 Vaccine] [facility] Work Phone: Comment on above: Note: Patient tolera meli well. No signs or symptoms of adverse reactions. Patient waited a minimum of 15 minutes. 09-03-2020 2nd Dose MODERNA COV ID-19 Vaccine; Translations: [Moderna COVID-19 Vaccine] [facility] Work Phone: Comment on above: Note: Patient tolera meli well. No signs or symptoms of adverse reactions. Patient waited a minimum of 15 minutes. Payers Date Payer Category Payer Unknown [id number] 1960 Unknown [id number] [id number] 1955 Unknown [id number] Social History Date Type Detail Facility Tobacco smoking status Unknown if ever sm [facility] Work Phone: Clinical Notes 06-19-2023 to 06-22-2023 Note Date & Type Note Facility 06-22-2023 Note Occupational Therapy Occupational Therapy Evaluation Patient Name: Luma Carter : 1955 Today's Date: 06/22/2023 Time in:1105 Time out: 12412 Present Illness History: 67 y/o F presented to [facility] ED from [place] for management of cardiac needs. Patient found to have bradycardia and abnormal telemetry readings. Patient is now s/p pacemaker placement 06/21/2023. Patient provided with in depth pacemaker education. All needs and concerns addressed. OT signing off. OT Discharge Recommendations: Home with assist as needed General Subjective: I am used to riding horses! pleasant and cooperative OT Diagnosis: Patient is s/p pacemaker placement. Completed OT evaluation for education, discharge and equipment recommendations, education on compensatory strategies to complete self care tasks, and to answer all other questions/concerns.Patient provided with pacemaker pamphlet and completed full education and overview with good return demo. OT signing off at this time. Please submit new order if functional status decreases Family/Caregiver Present: No Patient Active Problem List Diagnosis Bradycardia AV block History reviewed. No pertinent past medical history. Past Surgical History: Procedure Laterality Date CTA CHEST W AND/OR WO IV CONTRAST 10/24/2016 CT CHEST ANGIOGRAM W AND/OR WO IV CONTRAST ALBERTS CONVERSION Precautions Precautions Medical Precautions: pacemaker, telemetry, sling (sling for first 48 hours) Pain Pain Assessment Pain Assessment: 0-10 Pain Score: 2 Pain Type: Surgical pain (at surgical site) Cognition Cognition Overall Cognitive Status: Within Functional Limits Arousal/Alertness: Appropriate responses to stimuli Orientation Level: Oriented X4 Following Commands: Follows all commands and directions without difficulty Safety Judgment: Good awareness of safety precautions Awareness of Errors: Good awareness of errors made Deficits: Fully aware of deficits Attention Span: Appears intact Memory: Appears intact Problem Solving: Able to problem solve independently Communication: Intact General Assessment General Assessment Hearing: WFL Skin Integrity: appears intact Edema: none noted Hand Dominance: Right Home Living Home Living Type of Home: House Lives With: Spouse, Family ( and granddaughter) Home Adaptive Equipment: None Home Layout: Two level, Full bath main level, Stairs to alternate level with rails Alternate Level Stairs-Rails: Right Alternate Level Stairs-Number of Steps: f/f Home Access: Stairs to enter with rails Entrance Stairs-Rails: Left Entrance Stairs-Number of Steps: 3 Bathroom Shower/Tub: Walk-in shower Bathroom Toilet: Standard Bathroom Equipment: Shower chair with back Prior Level of Function Prior Function Level of Dixie: Independent with ADLs and functional transfers, Independent with homemaking with ambulation Prior Functional Mobility: Independent without device Receives Help From: Family ADL Assistance: Independent Homemaking Assistance: Independent Vocational: Retired Leisure: enjoys being active and taking care of horses Prior IADLs IADL History Homemaking Responsibilities: Yes Current License: Yes (educated that physician will clear patient for driving when appropriate) Static Sitting Balance Static Sitting Balance Static Sitting-Balance Support: Feet supported Static Sitting-Level of Assistance: Independent Static Sitting-Comment/Number of Minutes: unlimited Dynamic Sitting Balance Dynamic Sitting Balance Dynamic Sitting-Balance Support: Feet supported Dynamic Sitting-Balance: Lateral lean, Forward lean, Reaching for objects Dynamic Sitting Balance-Level of Assistance: Independent Static Standing Balance Static Standing Balance Static Standing-Balance Support: No upper extremity supported, Left upper extremity supported Static Standing-Level of Assistance: Distant supervision Dynamic Standing Balance Dynamic Standing Balance Dynamic Standing-Balance Support: No upper extremity supported Dynamic Standing-Balance: Lateral lean, Forward lean, Reaching for objects Dynamic Standing Balance-Level of Assistance: Distant supervision ADL ADL Eating Assistance: Independent Grooming Assistance: Independent Bathing Assistance: Contact guard assist UE Dressing Assistance: Independent (adjustment of gown) LE Dressing Assistance: Modified independent (Device) (donning socks seated in chair) Toileting Assistance with Device: Modified independent Bed Mobility Bed Mobility Bed Mobility: No Transfers Transfers Transfer: Yes Transfer 1 Transfer From 1: Chair with arms Transfer Type 1: To and from Transfer to 1: Stand Technique 1: Sit to stand, Stand to sit Transfer Device 1: none Transfer Level of Assistance 1: Independent Objective General Assessments Activity Tolerance Ambulation comments: Patient comp (more content not included)... [facility] 06-22-2023 Note Hospital Medicine Discharge Summary Final Discharge Diagnosis: Symptomatic bradycardia History of mitral valve prolapse Perioral numbness Admission Diagnosis: Bradycardia [R00.1] Hospital course: 67-year-old female with past medical history significant for mitral valve prolapse with mild MR, palpitations on propranolol, history of known left bundle branch block. she presented to the hospital with episode of dizziness and presyncope. she was evaluated initially at an outside hospital and she was found to have bradycardia. She was transferred to [facility] to be evaluated by cardiology. They reviewed her EKGs from [facility] and telemetry in our hospital which was showing episodes of 2-1 AV block, second-degree AV block Mobitz 2 and nonconducted PACs. Her propranolol was held and the patient continued to have lightheadedness/dizziness and bradycardia. 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 She had an echocardiogram which was showing normal ejection fraction. EP cardiology were consulted and the patient had Biotronik pacemaker implantation on June 21, 2023. She was monitored on telemetry postoperatively and she had device check. Postoperative x-ray was showing no pneumothorax. Propranolol was discontinued on discharge. She was started on 5 days course of Augmentin as per cardiology recommendations. The patient was provided with instructions for after pacemaker implantation care. Patient is being discharged home in stable condition on June 22, 2023. she is scheduled [facility] for device check on July 04, 2023. Dear Dr. Maria D MD, Luma is advised to follow up with you within 1-2 weeks. Follow-up with: Cardiology Scheduled appointments: Future Appointments Date Time Provider Department Center 07/04/2023 7:30 AM [facility] CV CLINIC DEVICE CHECK HVC CARD [facility] 07/24/2023 1:40 PM Som Hamm NP CARD [facility] Your medication list START taking these medications Instructions Last Dose Given Next Dose Due acetaminophen 500 mg tablet Commonly known as: Tylenol Take 1 tablet (500 mg) by mouth every 6 (six) hours if needed for moderate pain (4-7 pain score). amoxicillin-pot clavulanate 875-125 mg tablet Commonly known as: Augmentin Take 1 tablet by mouth in the morning and at bedtime for 8 doses. CONTINUE taking these medications Instructions Last Dose Given Next Dose Due Myrbetriq 50 mg tablet extended release 24 hr Generic drug: mirabegron naproxen 500 mg tablet Commonly known as: Naprosyn STOP taking these medications propranolol LA 80 mg 24 hr capsule Commonly known as: Inderal LA Where to Get Your Medications These medications were sent to [facility] - [address] [place] [address] [facility] [place] [address] [address] acetaminophen 500 mg tablet amoxicillin-pot clavulanate 875-125 mg tablet Luma has No Known Allergies. Disposition: Home or Self Care Discharge Condition: Stable Code Status: Full Code Diagnostic Results Hematology: Results from last 7 days Lab Units 06/21/23 0511 06/20/23 0432 WBC AUTO 10*3/uL 6.57 8.85 HEMOGLOBIN g/dL 12.9 12.8 HEMATOCRIT % 38.6 37.9 MCV fL 87.9 87.9 PLATELETS AUTO 10*3/uL 208 216 Chemistry: Results from last 7 days Lab Units 06/21/23 0511 06/20/23 0432 06/19/23 1145 SODIUM mmol/L 137 136 136 POTASSIUM mmol/L 4.2 4.1 4.1 CHLORIDE mmol/L 109* 107 106 CO2 mmol/L 24 24 23 BUN mg/dL 25 22 26* CREATININE mg/dL 1.05 1.07 1.06 GLUCOSE mg/dL 108* 104* 132* MAGNESIUM mg/dL -- -- 1.7* CALCIUM mg/dL 9.0 8.9 8.9 No lab exists for component: AFIO2 , APHT , APCOT , APOT , ATCO2 , CK , ALB , IBILI Test Results Pending At Discharge: Pending Labs Order Current Status Methylmalonic acid, serum In process Vitamin B1 In process Vitamin B1 In process Vitamin B6 In process Vitamin B6 In process Diet at the time of discharge: regular diet Nutrition Screen Activity: Patient currently has no discharge activity orders Objective Blood pressure 139/83, pulse 109, temperature 36.9 ???C (98.4 ???F), temperature source Temporal, resp. rate 14, height 1.651 m (5' 5 ), weight 77.6 kg (171 lb 1.2 oz), SpO2 95 %. Cardiology: Normal rate, regular rhythm. Lungs: Clear to auscultation, no wheezes, rales or rhonchi, symmetric air entry. Abdomen: Soft, non tender, non distended. Total time for discharge - review of data, exam, discussion with providers and care-team, med-rec and orders, arranging follow up, counseling of patient and/or family and documentation was 35 minutes. Signed Austyn Lyons MD [facility] Medicine 06/22/2023 11:38 AM [facility] 06-22-2023 Note [facility] CARDIOLOGY INPAT IENT PROGRESS NOTE Reason for follow up: Type II HB, chronotropic incompetence, s/p DC PPM Subjective Awake, alert up in chair, wearing sling, has walked a bit in room. Other than incisional pain denies CP, SOB, PAREKH, dizziness. Occasional palpitations she attributes to MVP that is usually well controlled on her usual propranolol. Reviewed findings to date and answered quesitons. Reviewed usual limitations and instructions post PPM with written instructions to print with AVS. Complete 5 days Abx- Augmentin- and discussed possible diarrhea/vaginal yeast infection. Tele: mostly paced, occasional washoe beats ALLERGIES No Known Allergies CURRENT MEDS Your medication list START taking these medications Instructions Last Dose Given Next Dose Due acetaminophen 500 mg tablet Commonly known as: Tylenol Take 1 tablet (500 mg) by mouth every 6 (six) hours if needed for moderate pain (4-7 pain score). amoxicillin-pot clavulanate 875-125 mg tablet Commonly known as: Augmentin Take 1 tablet by mouth in the morning and at bedtime for 8 doses. CONTINUE taking these medications Instructions Last Dose Given Next Dose Due Myrbetriq 50 mg tablet extended release 24 hr Generic drug: mirabegron naproxen 500 mg tablet Commonly known as: Naprosyn Notes to patient: And evening as needed STOP taking these medications propranolol LA 80 mg 24 hr capsule Commonly known as: Inderal LA Where to Get Your Medications These medications were sent to [facility] - [place] [address] [place] [address] [place] [address], [facility] [address] acetaminophen 500 mg tablet amoxicillin-pot clavulanate 875-125 mg tablet PRN medications: acetaminophen, melatonin, Insert peripheral IV AND Saline lock IV AND sodium chloride Objective Patient Vitals for the past 24 hrs: BP Temp Temp src Pulse Resp SpO2 Weight 06/22/23 1333 151/66 -- -- 78 17 97 % -- 06/22/23 1200 -- -- -- 79 23 96 % -- 06/22/23 0830 139/83 36.9 ???C (98.4 ???F) Temporal 109 14 95 % -- 06/22/23 0400 116/74 37 ???C (98.6 ???F) Temporal 99 15 97 % 77.6 kg (171 lb 1.2 oz) 06/22/23 0000 128/68 36.8 ???C (98.2 ???F) Temporal 98 21 95 % -- 06/21/23 2300 130/74 -- -- 98 25 95 % -- 06/21/23 2200 118/63 -- -- 100 19 96 % -- 06/21/23 2100 131/71 36.4 ???C (97.5 ???F) Temporal 87 19 95 % -- 06/21/231999 138/71 -- -- 76 16 95 % -- 06/21/23 1930 155/64 36.8 ???C (98.2 ???F) Temporal 76 15 96 % -- 06/21/23 1900 155/58 36.1 ???C (97 ???F) Temporal 79 14 96 % -- 06/21/23 1830 130/77 36.1 ???C (97 ???F) -- 81 18 96 % -- 06/21/23 1800 102/84 36.1 ???C (97 ???F) -- 84 19 94 % -- 06/21/23 1750 135/76 36.1 ???C (97 ???F) Temporal 76 20 96 % -- 06/21/23 1730 139/73 36 ???C (96.8 ???F) -- 77 21 97 % -- 06/21/23 1715 106/82 35.9 ???C (96.6 ???F) -- 75 18 98 % -- 06/21/23 1710 (!) 135/93 -- -- 76 16 96 % -- 06/21/23 1650 137/83 36 ???C (96.8 ???F) Temporal 93 20 99 % -- BP 151/66 Pulse 78 Temp 36.9 ???C (98.4 ???F) (Temporal) Resp 17 Ht 1.651 m (5' 5 ) Wt 77.6 kg (171 lb 1.2 oz) SpO2 97% BMI 28.47 kg/m??? Wt Readings from Last 3 Encounters: 06/22/23 77.6 kg (171 lb 1.2 oz) General: Awake, alert, appropriate mood / affect, NAD Eyes: anicteric sclera. Non-injected conjunctiva. No xanthelasmas Neck: No elevated JVP. No carotid bruit Pulm: Breath sounds clear to ascultation bilaterally with no wheeze, crackles or rhonchi Cards: HRRR , NL S1, S2. No S3 or S4 gallop. Murmur: none Chest: left pectoral dressing c/d/I, no hematoma or ecchymosis present Abd: Soft, Nontender, physiologic bowel sounds are present Extr: Lower extremity edema: none. DP pulses present bilaterally Skin: warm, dry, well perfused Neuro: A&Ox3, No gross deficits Lab Results Component Value Date NA 137 06/21/2023 K 4.2 06/21/2023 CL 109 (H) 06/21/2023 ANIONGAP 8 06/21/2023 BUN 25 06/21/2023 CREATININE 1.05 06/21/2023 CALCIUM 9.0 06/21/2023 MG 1.7 (L) 06/19/2023 No results found for: BILITOT , BILIDIR , ALKPHOS , AST , ALT , PROT , ALBUMIN No results found for: CHOLESTEROL , CHOLESTEROL TOTAL , TRIGLYCERIDES , HDL , LDL CHOLESTEROL , LDL DIRECT , LDL CALC No results found for: BNP Lab Results Component Value Date TSH 2.78 06/19/2023 No results found for: DIGOXIN LVL No results found for: HGBA1C Lab Results Component Value Date WBC 6.57 06/21/2023 RBC 4.39 06/21/2023 HGB 12.9 06/21/2023 HCT 38.6 06/21/2023 MCV 87.9 06/21/2023 MCH 29.4 06/21/2023 MCHC 33.4 06/21/2023 RDW 12.7 06/21/2023 PLT 208 06/21/2023 XR chest 1 view Result Date: 06/22/2023 1. No definite acute pulmonary process seen. 2. Geographic straight eged structure over left chest and shoulder likely external to the patient. Clinical correlation requested. Electronically signed: Lila Valencia. CV Testing: Encounter Date: 06/19/23 (more content not included)... [facility] 06-21-2023 Note DUAL CHAMBER PACEMAK ER IMPLANT PROCEDURE NOTE DATE OF PROCEDURE: 06/21/23 PERFORMING PHYSICIAN: Dr. Pan Monsalve PROGRAM MANAGEMENT MANAGER: Dr Angella Silver CONSENT: Patient LOCATION: EP Lab PROCEDURE PERFORMED: 1. Implantation of pacemaker (Biotronik) 2. Ultrasound guided venous access INDICATIONS: 1. AV block (2:1 block) PROCEDURAL SEDATION: Versed and Fentanyl. Moderate sedation was administered by the sedation nurse under my supervision and noted in the CVL log. Intraprocedural face to face sedation time: 47min. Monitoring: Cardiac telemetry, Blood pressure, continuous pulse oxymetry. FLUOROSCOPY TIME: 2.3min/ 4mGray. EBL: 15cc SPECIMEN REMOVED: None PREPARATION: 67 year old with past medical history of LBBB, MVP with mild MR, palpitations on propanlol, who presents as a transfer from [facility] for symptomatic bradycardia. She has been experiencing dizziness which occurs with neck movement. She also feels very SOB with activity. Dizziness comes in episodes. 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 She lost balance and stumbled before recovering. 20 minutes later, she experienced another episode of dizziness and losing balance. She also endorses worsening shortness of breath and fatigue since the weekend. Denies any chest pain, palpitations, nausea, vomiting, chest pressure during these episodes. She also is having flashes of alis oral numbness and tingling. Denies feeling it elsewhere in body. States she has had cardiac workup. Patient noted to be bradycardic with HR 40s at outside facility. While I was conversing with her, she would go into 2:1 AV block with HR 44bpm and also has 1:1 conduction and at this time, no symptom noted. Since admission her Propranolol was stopped and despite this, AV block persists and during exercise there was persistence of 2:1 Av block. So decision was made to proceed with PPM. PROCEDURAL DETAILS: Patient was placed in trendelenberg position and ultrasound was used to evaluate the patency of left axillary vein and for venous access. Left axillary venous access was obtained using modified seldinger technique using a 5 Kinyarwanda micro-puncture needle on two occasions and 0.35 wires were placed. Local infiltration of 1% Lidocaine was performed, and an incision was created in the left upper chest. Dissection was then performed using cautery down to the fascial plane above the muscle. The belly of the pectoralis was identified and with gentle blunt dissection a small pocket was created for the device above the muscle. 6 Kinyarwanda Safesheaths were placed over the wire. An active fixation Biotronik pacing lead was then delivered through the 6Fsheath tothe right ventricle. After confirmation of lead position on orthogonal views (KIMBLE and CAMBODIAN) to confirm septal position, the screw was activated, and the lead was placed in the right ventricular mid cavity towards the septum. After confirmation of good sensing parameters, injury pattern and pacing thresholds, 10V pacing was done and no diaphragmatic stimulation was noted. It was then secured in the pocket using three 1-0 Silk sutures. Then an active fixation Biotronik lead was delivered through the 6Fsheath to the right atrial appendage. After confirmation of lead position on orthogonal views (KIMBLE and CAMBODIAN), the screw was activated. Good sensing parameters, injury pattern and pacing thresholds, the lead was then tested using Lambert's maneuver. 10V pacing was done and no diaphragmatic stimulation was noted. It was then secured in the pocket using three 1-0 Silk sutures. Pocket hemostasis was secured, and it was then copiously and vigorously irrigated with antibiotic solution. The leads were attached to the generator and then wrapped under the device and the device was tacked to underlying muscle and placed in the pocket. The pocket was closed in layers: subcutaneous layer using 2-0 Vicryl; skin using 3-0 absorbable monofilament suture. Glue was applied and Tegaderm dressing was placed on top. Lead parameters were then rechecked through the device as noted below. The patient was returned to the short stay room for post procedural observation. No immediate procedural complications were noted. POST PROCEDURE EXAM: Patient was hemodynamically stable. COMPLICATIONS: None. IMPRESSION: 1. Successful dual chamber pacemaker with excellent pacing and sensing parameters. RECOMMENDATIONS: 1. Occlusive dressing to be removed after 2 weeks. 2. Do not wet the incision for 7 days. 3. No lifting heavy weights using arm on the same side x 3weeks 4. Do not lift elbow above the shoulder on the same side for 4-6 weeks. 5. No driving for 1 month. 6. F/u in device clinic 1 week from discharge or sooner for any concerns. Pan Monsalve MD Cardiac Electrophysiology [facility] 06-21-2023 Note Patient: Luma Carter Procedure Information Date/Time: 06/21/23 1530 Procedure: Implant PPM - biventricular Location: [facility] [employer] / [facility] (Cath) Providers: Pan Monsalve MD Clinical information reviewed: Tobacco Allergies Meds Med Hx Surg Hx Fam Hx Soc Hx Physical Exam Airway Mallampati: II TM distance: >3 FB Neck ROM: full Cardiovascular Dental Pulmonary Abdominal Anesthesia Plan ASA 3 Anesthetic plan and risks discussed with patient. Use of blood products discussed with patient who. Additional Equipment Requests [facility] 06-21-2023 Note Hospital Medicine Daily Progress Note - 06/21/2023 10:57 AM; Room: [address] [place] [address] Admission: 06/19/2023 10:34 AM; Length of stay: 2 days THE HOSPITALIST TEAM PREFERS TO USE [employer] CHAT FOR COMMUNICATION 7AM-7PM. IF I DO NOT RESPOND WITHIN 15 MINUTES, PLEASE PAGE ME/CALL THROUGH THE CLAY MIXER. FROM 7PM-7AM, PLEASE PAGE [phone](COVR) Code Status: Full Code Barriers to Discharge: PPM insertion Expected Discharge Date: 2-3 days Discharge Destination: home Overview Patient is seen for evaluation and management of Symptomatic bradycardia. Subjective seen and evaluated at the bedside. No new symptoms. No events overnight. Discussed with the nurse. Physical Exam Visit Vitals BP 129/68 (BP Location: Right arm, Patient Position: Lying) Pulse (!) 47 Temp 35.6 ???C (96.1 ???F) (Temporal) Resp 21 Intake/Output Summary (Last 24 hours) at 06/21/2023 1057 Last data filed at 06/21/2023 0000 Gross per 24 hour Intake 970 ml Output -- Net 970 ml Physical Exam Eyes: Pupils: Pupils are equal, round, and reactive to light. Neck: Vascular: No carotid bruit. Cardiovascular: Rate and Rhythm: Normal rate and regular rhythm. Pulmonary: Effort: Pulmonary effort is normal. Breath sounds: Normal breath sounds. Abdominal: General: Bowel sounds are normal. Palpations: Abdomen is soft. Neurological: General: No focal deficit present. Mental Status: She is alert. Estimated body mass index is 28.51 kg/m??? as calculated from the following: Height as of this encounter: 1.651 m (5' 5 ). Weight as of this encounter: 77.7 kg (171 lb 4.8 oz). Active Inpatient Problems Principal Problem: Bradycardia Active Problems: AV block Assessment and Plan # Symptomatic bradycardia. - off beta-bryon. - plan for permanent pacemaker today as per cardio. - EKG and telemetry was showing evidence of second-degree AV block Mobitz 2 # Facial numbness, chronic. Advised the patient to have close follow-up with her PCP. No need for urgent studies including MRI. TSH, folic acid and Vit b12 are wnl. # history of mitral valve prolapse. VTE Prophylaxis: Lovenox Scheduled Meds enoxaparin, 40 mg, subcutaneous, Daily mirabegron, 50 mg, oral, Daily Pertinent Investigations Hematology: Results from last 7 days Lab Units 06/21/23 0511 06/20/23 0432 WBC AUTO 10*3/uL 6.57 8.85 HEMOGLOBIN g/dL 12.9 12.8 HEMATOCRIT % 38.6 37.9 MCV fL 87.9 87.9 PLATELETS AUTO 10*3/uL 208 216 Chemistry: Results from last 7 days Lab Units 06/21/23 0511 06/20/23 0432 06/19/23 1145 SODIUM mmol/L 137 136 136 POTASSIUM mmol/L 4.2 4.1 4.1 CHLORIDE mmol/L 109* 107 106 CO2 mmol/L 24 24 23 BUN mg/dL 25 22 26* CREATININE mg/dL 1.05 1.07 1.06 GLUCOSE mg/dL 108* 104* 132* MAGNESIUM mg/dL -- -- 1.7* CALCIUM mg/dL 9.0 8.9 8.9 No lab exists for component: AFIO2 , APHT , APCOT , APOT , ATCO2 , CK , ALB , IBILI Historical Values: (Includes values prior to this admission) Lab Results Component Value Date TSH 2.78 06/19/2023 Lab Results Component Value Date [id number] 437 06/19/2023 IRON 20 (L) 06/20/2023 TIBC 386 06/20/2023 Imaging ECG 12 lead Normal sinus rhythm Left bundle branch block Abnormal ECG No previous ECGs available Confirmed by Pan Monsalve ([id number]) on 06/19/2023 6:24:21 PM Complete Echo (TTE) w/wo Imaging Agent, Strain, 3D, Bubble Study 1 1 [facility] [address] [place] [address] [phone] (fax) Echocardiogram-[facility] Name: LUMA CARTER Study Date: 06/19/2023 01:16 PM B/P: 115 mmHg/75 mmHg HR: Date of : 1955 Location: [facility] Height: 65 in. Age: 67 year(s) Patient Room: 3105 Weight: 160 lb. Gender: Female Patient Status: InPt BSA: 1.8 m2 Indication: Bradycardia, Stroke Examination: Echocardiogram (Complete), Lumason Contrast, Agitated Saline Image Quality: Fair Patient Consent: Procedure explained to patient Conclusions Left Ventricle: The left ventricle is normal size. Global left ventricular systolic function is normal. Left ventricular wall thickness is normal. The septum is abnormal in its motion; maybe due to bundle branch block. Right Ventricle: The right ventricle is normal in size. Normal right ventricular systolic function. Doppler studies suggest normal right sided pressures. Left Atrium: The left atrium is normal in size. IAS: No intracardiac shunt by agitated saline injections. Overall Conclusions: Due to suboptimal imaging Lumason contrast was administered for opacification and better delineation of endocardial borders. Measurements Left Ventricle Label Value Normal Value LVOT PGmax 3 mmHg LVDd, 2D 3.8 cm (3.9cm - 5.3cm) LVDs, 2D 2.84 cm (2.1cm - 4cm) IVSd, 2D 1.25 cm (0.6cm - 1.1cm) LVPWd, 2D 1.08 cm (0.6cm - 0.9cm) LV Mass, 2D ASE 146.59 g LV Mass Index, 2D ASE 81.4 g/m?? (44g/m?? - 88.4g/m??) RWT, MM 0.57 (0 - 0.42) LVSVI, 2D 17 (more content not included)... [facility] 06-21-2023 Note Cardiology Progress Note Subjective Subjective: Luma Carter is a 67 y.o. 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 for symptomatic bradycardia. Patient states she chronically has dizziness that comes in episodes. However, on Sunday, her episode was persistent. 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 She lost balance and stumbled before recovering. 20 minutes later, she experienced another episode of dizziness and losing balance. She also endorses worsening shortness of breath and fatigue since the weekend. Denies any chest pain, palpitations, nausea, vomiting, chest pressure during these episodes. She also is having flashes of alis oral numbness and tingling. Denies feeling it elsewhere in body. States she has had cardiac workup Patient noted to be bradycardic with HR 40s at outside facility. CT head done there was negative for acute pathology. Transferred here for cardiac consultation. Neurology is also consulted for concern for stroke-like symptoms with tingling, numbness, and dizziness. 06/20: patient seen and examined at bedside. No acute events overnight. HR continues to fluctuate 40s to 80s on telemetry. Patient does not endorse ricardo dizziness, however feels lightheaded. 06/21: she is feeling well, has some lightheadedness. Discussed with pt we will proceed with PPM but also do a treadmill test and see if AV block gets worse with exertion or if her symptoms get worse to rule out other etiologies of her symptoms given she has 2:1 AV block at baseline and is fairly asymptomatic Objective Objective: Patient Vitals for the past 24 hrs: BP Temp Temp src Pulse Resp SpO2 Weight 06/21/23 0810 -- 35.6 ???C (96.1 ???F) Temporal -- -- -- -- 06/21/23 0400 129/68 37 ???C (98.6 ???F) Temporal (!) 47 21 95 % 77.7 kg (171 lb 4.8 oz) 06/21/23 0000 91/72 36.9 ???C (98.4 ???F) Temporal (!) 47 19 94 % -- 06/20/23 1936 159/61 36.8 ???C (98.2 ???F) Temporal 59 14 94 % -- 06/20/23 1200 141/72 36.5 ???C (97.7 ???F) Temporal 85 20 95 % -- Physical Examination: GENERAL: AOx3, in no acute distress. HEAD: Atraumatic, normocephalic. EYES: JACQUELINE, EOMI. NECK: No JVD present. CARDIAC: RRR. No murmur, rubs, or gallops. RESPIRATORY: CTAB, no increased effort of breathing. ABDOMEN: Soft, nontender, nondistended. EXTREMITIES: No lower extremity edema, peripheral pulses are 2+ bilaterally. NEURO: No focal deficits Relevant Lab Results Encounter Date: 06/19/23 ECG 12 lead Result Value Ventricular Rate 85 Atrial Rate 85 [place] Interval 156 QRS DURATION 132 QT Interval 480 QTC CALCULATION(BAZETT) 571 P Racine 68 R-Racine 1 T Wave [place] 34 Impression Normal sinus rhythm Left bundle branch block Abnormal ECG No previous ECGs available Confirmed by Pan Monsalve ([id number]) on 06/19/2023 6:24:21 PM No results found for: CKTOTAL , CKMB , CKMBINDEX , TROPONINI Complete Echo (TTE) w/wo Imaging Agent, Strain, 3D, Bubble Study Result Date: 06/19/2023 1 1 [facility] [address] [address] [phone] (fax) Echocardiogram-[facility] Name: LUMA CARTER Study Date: 06/19/2023 01:16 PM B/P: 115 mmHg/75 mmHg HR: Date of : 1955 Location: [facility] Height: 65 in. Age: 67 year(s) Patient Room: 3105 Weight: 160 lb. Gender: Female Patient Status: InPt BSA: 1.8 m2 Indication: Bradycardia, Stroke Examination: Echocardiogram (Complete), Lumason Contrast, Agitated Saline Image Quality: Fair Patient Consent: Procedure explained to patient Conclusions Left Ventricle: The left ventricle is normal size. Global left ventricular systolic function is normal. Left ventricular wall thickness is normal. The septum is abnormal in its motion; maybe due to bundle branch block. Right Ventricle: The right ventricle is normal in size. Normal right ventricular systolic function. Doppler studies suggest normal right sided pressures. Left Atrium: The left atrium is normal in size. IAS: No intracardiac shunt by agitated saline injections. Overall Conclusions: Due to suboptimal imaging Lumason contrast was administered for opacification and better delineation of endocardial borders. Measurements Left Ventricle Label Value Normal Value LVOT PGmax 3 mmHg LVDd, 2D 3.8 cm (3.9cm - 5.3cm) LVDs, 2D 2.84 cm (2.1cm - 4cm) IVSd, 2D 1.25 cm (0.6cm - 1.1cm) LVPWd, 2D 1.08 cm (0.6cm - 0.9cm) LV Mass, 2D ASE 146.59 g LV Mass Index, 2D ASE 81.4 g/m?? (44g/m?? - 88.4g/m??) RWT, MM 0.57 (0 - 0.42) LVSVI, 2D 17.2 ml/m2 Right Ventricle Label Value Normal Value RVDd, 2D 3.14 cm (1.9cm - 3.8cm) TAPSE 1.89 cm Right Atrium Label Value Normal Value RA Area 11.9 cm?? Aortic Valve Label Value Normal ValueAV DVI 0.61 Mitral Valve Label Value (more content not included)... [facility] 06-20-2023 Note Hospital Medicine Daily Progress Note - 06/20/2023 12:45 PM; Room: [address] [place] [address] Admission: 06/19/2023 10:34 AM; Length of stay: 1 days THE HOSPITALIST TEAM PREFERS TO USE [employer] CHAT FOR COMMUNICATION 7AM-7PM. IF I DO NOT RESPOND WITHIN 15 MINUTES, PLEASE PAGE ME/CALL THROUGH THE CLAY MIXER. FROM 7PM-7AM, PLEASE PAGE [phone](COVR) Code Status: Full Code Barriers to Discharge: PPM insertion Expected Discharge Date: 2-3 days Discharge Destination: home Overview Patient is seen for evaluation and management of Symptomatic bradycardia. Subjective seen and evaluated at the bedside. Family at the bedside. Patient reported an episode of dizziness this a.m. No chest pain, no shortness of breath. Physical Exam Visit Vitals BP 136/69 (BP Location: Left arm, Patient Position: Lying) Pulse 82 Temp 36.2 ???C (97.2 ???F) (Temporal) Resp 18 Intake/Output Summary (Last 24 hours) at 06/20/2023 1245 Last data filed at 06/19/2023 1730 Gross per 24 hour Intake 200 ml Output -- Net 200 ml Physical Exam Eyes: Pupils: Pupils are equal, round, and reactive to light. Cardiovascular: Rate and Rhythm: Normal rate and regular rhythm. Pulmonary: Effort: Pulmonary effort is normal. Breath sounds: Normal breath sounds. Abdominal: General: Bowel sounds are normal. Palpations: Abdomen is soft. Neurological: General: No focal deficit present. Mental Status: She is alert. Estimated body mass index is 28.25 kg/m??? as calculated from the following: Height as of this encounter: 1.651 m (5' 5 ). Weight as of this encounter: 77 kg (169 lb 12.1 oz). Active Inpatient Problems Principal Problem: Bradycardia Active Problems: AV block Assessment and Plan # Symptomatic bradycardia. - off beta-bryon. - Discussed with cardiology, plan for permanent pacemaker. - EKG and telemetry was showing evidence of second-degree AV block Mobitz 2 # Facial numbness, chronic. Advised the patient to have close follow-up with her PCP. No need for urgent studies including MRI # history of mitral valve prolapse. VTE Prophylaxis: Lovenox Scheduled Meds enoxaparin, 40 mg, subcutaneous, Daily mirabegron, 50 mg, oral, Daily Pertinent Investigations Hematology: Results from last 7 days Lab Units 06/20/23 0432 06/19/23 1145 WBC AUTO 10*3/uL 8.85 8.35 HEMOGLOBIN g/dL 12.8 12.5 HEMATOCRIT % 37.9 37.5 MCV fL 87.9 88.4 PLATELETS AUTO 10*3/uL 216 233 Chemistry: Results from last 7 days Lab Units 06/20/23 0432 06/19/23 1145 SODIUM mmol/L 136 136 POTASSIUM mmol/L 4.1 4.1 CHLORIDE mmol/L 107 106 CO2 mmol/L 24 23 BUN mg/dL 22 26* CREATININE mg/dL 1.07 1.06 GLUCOSE mg/dL 104* 132* MAGNESIUM mg/dL -- 1.7* CALCIUM mg/dL 8.9 8.9 No lab exists for component: AFIO2 , APHT , APCOT , APOT , ATCO2 , CK , ALB , IBILI Historical Values: (Includes values prior to this admission) Lab Results Component Value Date TSH 2.78 06/19/2023 Lab Results Component Value Date [id number] 06/19/2023 Imaging ECG 12 lead Normal sinus rhythm Left bundle branch block Abnormal ECG No previous ECGs available Confirmed by Pan Monsalve ([id number]) on 06/19/2023 6:24:21 PM Complete Echo (TTE) w/wo Imaging Agent, Strain, 3D, Bubble Study 1 1 [facility] [address] [facility] [place] [place] [address] [phone] (fax) Echocardiogram-[facility] Name: LUMA CARTER Study Date: 06/19/2023 01:16 PM B/P: 115 mmHg/75 mmHg HR: Date of : 1955 Location: [facility] Height: 65 in. Age: 67 year(s) Patient Room: 3105 Weight: 160 lb. Gender: Female Patient Status: InPt BSA: 1.8 m2 Indication: Bradycardia, Stroke Examination: Echocardiogram (Complete), Lumason Contrast, Agitated Saline Image Quality: Fair Patient Consent: Procedure explained to patient Conclusions Left Ventricle: The left ventricle is normal size. Global left ventricular systolic function is normal. Left ventricular wall thickness is normal. The septum is abnormal in its motion; maybe due to bundle branch block. Right Ventricle: The right ventricle is normal in size. Normal right ventricular systolic function. Doppler studies suggest normal right sided pressures. Left Atrium: The left atrium is normal in size. IAS: No intracardiac shunt by agitated saline injections. Overall Conclusions: Due to suboptimal imaging Lumason contrast was administered for opacification and better delineation of endocardial borders. Measurements Left Ventricle Label Value Normal Value LVOT PGmax 3 mmHg LVDd, 2D 3.8 cm (3.9cm - 5.3cm) LVDs, 2D 2.84 cm (2.1cm - 4cm) IVSd, 2D 1.25 cm (0.6cm - 1.1cm) LVPWd, 2D 1.08 cm (0.6cm - 0.9cm) LV Mass, 2D ASE 146.59 g LV Mass Index, 2D ASE 81.4 g/m?? (44g/m?? - 88.4g/m??) RWT, MM 0.57 (0 - 0.42) LVSVI, 2D 17.2 ml/m2 Right Ventricle Label Value Normal Value RVDd, 2D 3.14 cm (1.9cm - 3.8cm) TAPSE 1.89 cm Right Atrium Label Value N (more content not included)... [facility] 06-20-2023 Note ---- Attestation signed by Trudi Whipple MD at 06/20/2023 2:03 PM Case discussed with PROMOTIONS REPRESENTATIVE. Do not bill level of service. Primary to call back if they need a full consult. Trudi Whipple MD ---- On 06/20/2023- Neurology Team and Stroke Team were asked by Primary service about Pt c/o Alis oral numbness for 1-2 week. Family and Pt concerned it was a neurological issues. Neurology PROMOTIONS REPRESENTATIVE discussed issue with Neurology Attending and Stroke PA. Both teams stated if the numbness is located just around the mouth, this is not a neuro issue. Impression would be more likely metabolic.vitamin deficiency or Medication side effect. Neurology Recommendations: Checking for vitamin deficiencies (B1, B6, B12, MMA, and folate. Check Thyroid and Iron panel Review her medication for possible side effects. Dr. Whipple , Neurology Attending would not recommend MRI brain at this time. Head CT was reviewed and was negative for acute intracranial abnormalities. [facility] Neurology Inpatient PROMOTIONS REPRESENTATIVE [facility] 06-20-2023 Note ---- Attestation signed by Vijay Sandoval MD at 06/20/2023 1:24 PM I personally saw and examined the patient on the same date of service as resident/fellow Dr Mesa. I discussed the findings and therapeutic plan with the resident/fellow Dr Mesa. I agree with the documentation, except for any edits/updates below. Teaching Physician's Revisions: We spent a considerable amount of time with the patient and her family explaining the indication for the permanent pacemaker, the likely benefits, and the technical aspects and logistics involved post procedurally. All of their questions were answered. Due to scheduling challenges, this will be performed tomorrow 06/21/2023 Vijay Sandoval MD, MPH, [facility], [facility], [facility] Interventional Cardiology Pager Email: [email or web address] ---- Cardiology Progress Note Subjective Subjective: Luma Carter is a 67 y.o. 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 for symptomatic bradycardia. Patient states she chronically has dizziness that comes in episodes. However, on Sunday, her episode was persistent. 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 She lost balance and stumbled before recovering. 20 minutes later, she experienced another episode of dizziness and losing balance. She also endorses worsening shortness of breath and fatigue since the weekend. Denies any chest pain, palpitations, nausea, vomiting, chest pressure during these episodes. She also is having flashes of alis oral numbness and tingling. Denies feeling it elsewhere in body. States she has had cardiac workup Patient noted to be bradycardic with HR 40s at outside facility. CT head done there was negative for acute pathology. Transferred here for cardiac consultation. Neurology is also consulted for concern for stroke-like symptoms with tingling, numbness, and dizziness. 06/20: patient seen and examined at bedside. No acute events overnight. HR continues to fluctuate 40s to 80s on telemetry. Patient does not endorse ricardo dizziness, however feels lightheaded. Objective Objective: Patient Vitals for the past 24 hrs: BP Temp Temp src Pulse Resp SpO2 Height Weight 06/20/23 0622 -- -- -- -- -- -- -- 77 kg (169 lb 12.1 oz) 06/20/23 0316 131/71 36.3 ???C (97.3 ???F) Temporal 84 17 94 % -- -- 06/19/23 2340 129/59 36.6 ???C (97.9 ???F) Temporal (!) 48 23 95 % -- -- 06/19/231999 (!) 137/49 36.7 ???C (98.1 ???F) Temporal (!) 49 23 94 % -- -- 06/19/23 1759 140/51 -- -- (!) 45 22 97 % -- -- 06/19/23 1755 121/73 -- -- 50 13 98 % -- -- 06/19/23 1752 132/57 -- -- (!) 47 24 95 % -- -- 06/19/23 1600 133/54 -- -- (!) 46 18 95 % -- -- 06/19/23 1400 143/61 -- -- (!) 48 20 98 % -- -- 06/19/23 1200 109/81 -- -- (!) 48 24 95 % -- -- 06/19/23 1100 -- -- -- -- -- -- 1.651 m (5' 5 ) -- 06/19/23 1050 115/75 36.8 ???C (98.2 ???F) Temporal (!) 49 19 97 % -- -- Physical Examination: GENERAL: AOx3, in no acute distress. HEAD: Atraumatic, normocephalic. EYES: JACQUELINE, EOMI. NECK: No JVD present. CARDIAC: RRR. No murmur, rubs, or gallops. RESPIRATORY: CTAB, no increased effort of breathing. ABDOMEN: Soft, nontender, nondistended. EXTREMITIES: No lower extremity edema, peripheral pulses are 2+ bilaterally. NEURO: No focal deficits Relevant Lab Results Encounter Date: 06/19/23 ECG 12 lead Result Value Ventricular Rate 85 Atrial Rate 85 [place] Interval 156 QRS DURATION 132 QT Interval 480 QTC CALCULATION(BAZETT) 571 P Rac[place] 68 R-Racine 1 T Wave [place] 34 Impression Normal sinus rhythm Left bundle branch block Abnormal ECG No previous ECGs available Confirmed by Pan Monsalve ([id number]) on 06/19/2023 6:24:21 PM No results found for: CKTOTAL , CKMB , CKMBINDEX , TROPONINI Complete Echo (TTE) w/wo Imaging Agent, Strain, 3D, Bubble Study Result Date: 06/19/2023 1 1 [facility] [address] [place] [address] [phone] (fax) Echocardiogram-[facility] Name: LUMA CARTER Study Date: 06/19/2023 01:16 PM B/P: 115 mmHg/75 mmHg HR: Date of : 1955 Location: [facility] Height: 65 in. Age: 67 year(s) Patient Room: 3105 Weight: 160 lb. Gender: Female Patient Status: InPt BSA: 1.8 m2 Indication: Bradycardia, Stroke Examination: Echocardiogram (Complete), Lumason Contrast, Agitated Saline Image Quality: Fair Patient Consent: Procedure explained to patient Conclusions Left Ventricle: The left ventricle is normal size. Global left ventricular systolic function is normal. Left ventricular wall thickness is normal. The septum is abnorm (more content not included)... [facility] 06-19-2023 Note Hospital Medicine History and Physical 06/19/2023 12:31 PM THE HOSPITALIST TEAM PREFERS TO USE [employer] CHAT FOR COMMUNICATION 7AM-7PM. IF I DO NOT RESPOND WITHIN 15 MINUTES, PLEASE PAGE ME/CALL THROUGH THE CLAY MIXER. FROM 7PM-7AM, PLEASE PAGE [phone](COVR) Chief Complaint No chief complaint on file. History of Present Illness Luma Carter is an 67 y.o. female w PMH of mitral valve prolapse on propranolol here from OSH with c/o concern for symptomatic bradycardia and intermittent facial/tongue tingling/numbness. HR at OSH was intermittently in the 40s. Patient reports that over the past couple weeks she has been intermittently short of breath and dizzy. She endorses that the dizziness/unsteadiness seems to be most pronounced when changing positions. She does have a hx of BPPV. EKG here initially showed HR of 85 w Qtc in the 500s, though patient HR in room on hardwire is in the low 40s. She denies symptoms at rest other than some SOB. CT head was performed at OSH d/t dizziness and was negative. Patient has been on propranolol for quite sometime. Last dose was yesterday morning. She denies any CP, N/V/D/C. She denies trouble swallowing. Currently facial numbness is resolved. Review of System and Physical Exam Temp: [36.8 ???C (98.2 ???F)] 36.8 ???C (98.2 ???F) Heart Rate: [49] 49 Resp: [19] 19 BP: (115)/(75) 115/75 Physical Exam Vitals and nursing note reviewed. Constitutional: General: She is not in acute distress. Appearance: Normal appearance. She is normal weight. She is not ill-appearing. HENT: Head: Normocephalic. Mouth/Throat: Mouth: Mucous membranes are moist. Eyes: Conjunctiva/sclera: Conjunctivae normal. Cardiovascular: Rate and Rhythm: Regular rhythm. Bradycardia present. Pulses: Normal pulses. Heart sounds: Normal heart sounds. No murmur heard. No friction rub. No gallop. Pulmonary: Effort: Pulmonary effort is normal. No respiratory distress. Breath sounds: Normal breath sounds. No wheezing, rhonchi or rales. Abdominal: General: Abdomen is flat. Bowel sounds are normal. There is no distension. Palpations: Abdomen is soft. There is no mass. Tenderness: There is no abdominal tenderness. There is no guarding. Musculoskeletal: General: No swelling, tenderness or deformity. Normal range of motion. Right lower leg: No edema. Left lower leg: No edema. Skin: General: Skin is warm. Capillary Refill: Capillary refill takes less than 2 seconds. Coloration: Skin is not jaundiced. Findings: No erythema, lesion or rash. Neurological: General: No focal deficit present. Mental Status: She is alert and oriented to person, place, and time. Mental status is at baseline. Cranial Nerves: No cranial nerve deficit. Sensory: No sensory deficit. Motor: No weakness. Psychiatric: Mood and Affect: Mood normal. Behavior: Behavior normal. Thought Content: Thought content normal. Judgment: Judgment normal. Review of Systems Constitutional: Negative for chills, diaphoresis, fatigue and fever. HENT: Negative for trouble swallowing. Eyes: Negative for visual disturbance. Respiratory: Positive for shortness of breath. Negative for cough. Cardiovascular: Negative for chest pain and leg swelling. Gastrointestinal: Negative for abdominal distention, abdominal pain, blood in stool, constipation, diarrhea, nausea and vomiting. Musculoskeletal: Negative for arthralgias and joint swelling. Skin: Negative for rash. Neurological: Positive for dizziness. Negative for tremors, syncope and numbness. All other systems reviewed and are negative. Problem List Patient Active Problem List Diagnosis Date Noted Bradycardia 06/19/2023 Assessment and Plan Suspected symptomatic bradycardia Dizziness/unsteadiness Shortness of breath Intermittent facial numbness - r/o CVA MVP Chronic LBBB Hx of BPPV Admit to medicine service, stepdown unit, hardwire tele, continuous pulse ox, supplemental O2 as needed Cardiology consult. Given the concurrent SOB complaint, there is concern this could be symptomatic bradycardia. Echocardioagram Neuro consult for intermittent facial numbness. MRI of brain w and wo contrast pending. Follow up B12 Hold propranolol. VTE Prophylaxis: Lovenox ----- Focus of this inpatient stay will remain on problems that need acute care setting for care. We will review available studies and will order additional labs, imaging and other studies as appropriate. As needed medicines are ordered as appropriate. VTE Prophylaxis will be ordered as appropriate. Please see above for management plan for individual hospital problems. Home medications are reviewed and will be continued as appropriate. Patient will be continued to be followed during this hospital stay by a member of [facility]. Past Medical History History reviewed. No pertinent past medical history. Past Surgical History Past Surgical History (more content not included)... [facility] Summary Purpose Family History No Family History Records FoundNo Family History Records FoundNo Family History Records FoundNo Family History Records Found Includes: Family History in patient's chart No Family History Recorded Includes: Family History in patient's chart No Family History RecordedNo Family History Records FoundNo Family History Records Found Advance Directives No Advanced Directives Records FoundNo Advanced Directives Records FoundNo Advanced Directives Records FoundNo Advanced Directives Records Found Includes: Current Advance Directives No Advance Directives Recorded Includes: Current Advance Directives No Advance Directives RecordedNo Advanced Directives Records FoundNo Advanced Directives Records Found Reason for Referral No Reason for Referral RecordedNo Reason for Referral Recorded Assessments Findings Encounter Date Encounter for Immunization 1st COVID Vaccine carolann Smiley PharmD 09/03/2020 Findings Encounter Date Encounter for Immunization 2nd Dose- COV ID Vaccine with Sabrina Caceres PharmD 09/29/2020 Encounter for Immunization 1st COVID Vaccine carolann Smiley PharmD 09/03/2020 Instructions Instructions not supported for this document type No Instructions Recorded Instructions not supported for this document type No Instructions Recorded History of Present Illness History of Present Illness not supported for this document type No History of Present Illness Recorded History of Present Illness not supported for this document type No History of Present Illness Recorded Review of System Review of Systems not supported for this document type No Review of Systems Recorded Review of Systems not supported for this document type No Review of Systems Recorded Physical Exam Physical Exam not supported for this document type No Physical Exam Recorded Physical Exam not supported for this document type No Physical Exam Recorded Additional Source Comments INFORMATION SOURCE (unrecogn ized section and content) DATE CREATED AUTHOR 12/20/2017 [facility] DATE CREATED AUTHOR AUTHOR'S ORGANIZ ATION 12/24/2017 [facility] DATE CREATED AUTHOR AUTHOR'S ORGANIZ ATION 12/28/[address] [facility] DATE CREATED AUTHOR AUTHOR'S ORGANIZ ATION 09/08/2018 [facility] DATE CREATED AUTHOR AUTHOR'S ORGANIZ ATION 01/18/2022 [facility] DATE CREATED AUTHOR AUTHOR'S ORGANIZ ATION 06/23/2023 [facility] Medical History (unrecognize d section and content) Includes: Medical History in patient's chartNo Medical History Recorded Includes: Medical History in patient's chartNo Medical History Recorded Evaluations & Outcomes (unre cognized section and content) Includes: Evaluations & Outcomes for active GoalsNo Outcomes Recorded Includes: Evaluations & Outcomes for active GoalsNo Outcomes Recorded FOR RECORDS PERTAINING TO PATIENTS WHO ARE OR HAVE BEEN ENROLLED IN A CHEMICAL DEPENDENCY/SUBSTANCEABUSE PROGRAM, SOME INFORMATION MAY BE OMITTED. This clinical summary was aggregated from multiple sources. Caution should be exercised in using it in the provision of clinical care. This summary normalizes information from multiple sources, and as a consequence, information in this document may materially change the coding, format and clinical context of patient data. In addition, data may be omitted in some cases. CLINICAL DECISIONS SHOULD BE BASED ON THE PRIMARY CLINICAL RECORDS. [facility]. provides no warranty or guarantee of the accuracy or completeness of information in this document.
--- NOTE | 2023-06-24 10:18 | ECG_ITS ---
The [facility] Test Date: 2023-06-24 Pat Name: GRISELDA DAVEY Department: Room: - Gender: Female Billing Auditor: : 1955 Requested By: Order Number: [id number] Reading MD: NORMA LEAVITT Measurements Intervals [place] Rate: 84 P: 90 PA: 300 QRS: 12 QRSD: 126 T: 9 QT: 420 QTc: 461 Interpretive Statements 1100 Sinus rhythm 1570 with occasional ventricular premature complexes 2231 First degree AV block 2550 Left bundle branch block 9150 abnormal ECG Electronically Signed On 06-26-2023 7:04:25 EST by NORMA LEAVITT
--- NOTE | 2023-06-24 10:19 | XR_ITS ---
The [address] [address] Patient Name: GRISELDA DAVEY MRN: [id number] date: 1955 Sex: F Assigned Patient Location: ER Current Patient Location: ER Accession/Order Number: [id number] Exam Date: 06/24/2023 10:25 Report Date: 06/24/2023 11:05 At the request of: KYLEE MCLEAN Procedure: XR chest 1V EXAM: XR chest 1V INDICATION: CP. COMPARISON: Chest radiograph 06/18/2023. TECHNIQUE: Single frontal view of the chest FINDINGS: Left-sided ICD leads overlying the right atrium and right ventricle. Normal cardiomediastinal contours. No acute infiltrative process. No pleural effusion or pneumothorax. No acute osseous abnormality. XR/XR chest 1V IMPRESSION: No acute cardiopulmonary process. Electronically authenticated by: KUN KIM Date: 06/24/2023 11:05
--- NOTE | 2023-06-24 10:19 | ED.GENADUL1 ---
HPI - General Adult General Chief complaint: Shortness of Breath/Dyspnea Stated complaint: SHORTNESS OF BREATH/ HEARTBURN Time Seen by Provider: 06/24/23 10:11 Source: patient Mode of arrival: walk-in Limitations: no limitations History of Present Illness HPI narrative: 68-year-old female presents for burning episode in her chest. It began about 7:30 this morning after eating some leftover pasta. It continued while she was out shopping today and so she came in here to get checked. She points to the lower sternal and epigastric area to indicate area of discomfort. It doesn't seem to radiate. 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 Related Data Home Medications Medication Instructions Recorded Confirmed mirabegron 50 mg tablet,extended 50 mg PO Q24H 06/18/23 06/24/23 release 24 hr (Myrbetriq) acetaminophen 500 mg tablet 500 mg PO Q6H 06/24/23 06/24/23 Previous Rx's Medication Instructions Recorded pantoprazole 40 mg tablet,delayed 40 mg PO DAILY 4 weeks #28 tabs 06/24/23 release (Protonix) Allergies Allergy/AdvReac Type Severity Reaction Status Date / Time No Known Drug Allergies Allergy Verified 06/24/23 10:10 Review of Systems ROS Narrative A ten point review of systems is negative except as noted above. PFSH PFSH Social History Smoking status: Never smoker Exam Narrative Exam Narrative: Nurses note and vital signs reviewed and patient is not hypoxic. General: The patient appears well and in no apparent distress. Patient is resting comfortably on cart. Skin: Warm, dry, no pallor noted. There is no rash noted. Head: Normocephalic, atraumatic Eye: Normal conjunctiva, no drainage Ears, Nose, Mouth, and Throat: oral mucosa is moist. Nares patent. Cardiovascular: Regular Rate and Rhythm; pacemaker site appears to be healing quite well. No surrounding erythema. Respiratory: Patient is in no distress, no accessory muscle use, lungs are clear to auscultation, no wheezing, rales or rhonchi Back: non-tender GI: soft and nontender Musculoskeletal: The patient has no evidence of calf tenderness, no pitting edema, symmetrical pulses noted bilaterally Neurological: A&O, normal speech Psychiatric: Cooperative Constitutional Vital Signs, click to edit/add: Last Vital Signs Temp 97.7 F 06/24/23 10:10 Pulse 86 06/24/23 13:40 Resp 18 06/24/23 13:40 BP 132/77 06/24/23 13:40 Pulse Ox 100 06/24/23 13:40 O2 Del Method Room Air 06/24/23 10:10 Course Vital Signs Vital signs: Vital Signs Temperature 97.7 F 06/24/23 10:10 Pulse Rate 82 06/24/23 10:10 Respiratory Rate 28 H 06/24/23 10:10 Blood Pressure 165/105 H 06/24/23 10:10 Pulse Oximetry 98 06/24/23 10:10 Oxygen Delivery Method Room Air 06/24/23 10:10 Temperature 97.7 F 06/24/23 10:10 Pulse Rate 86 06/24/23 13:40 Respiratory Rate 18 06/24/23 13:40 Blood Pressure 132/77 06/24/23 13:40 Pulse Oximetry 100 06/24/23 13:40 Oxygen Delivery Method Room Air 06/24/23 10:10 Medical Decision Making MDM Narrative Medical decision making narrative: her workup including two troponins and CTA is negative and she is able to be discharged home. Treatment diagnosis and follow-up were discussed with the patient. heart score is three. Differential Diagnosis Differential Diagnosis: myocardial infarction, pulmonary embolism, pneumothorax,atypical chest pain Lab Data Lab results reviewed: Yes I reviewed the patient's lab results Labs: Lab Results 06/24/23 06/24/23 Range/Units 10:32 11:27 WBC 11.5 H (4.0-11.0) 10^3/uL RBC 4.39 (4.20-5.40) 10^6/uL Hgb 12.9 (12.0-16.0) g/dL Hct 39.7 (36.0-48.0) % MCV 90.4 (81.0-99.0) fL MCH 29.4 (26.7-34.0) pg MCHC 32.5 (29.9-35.2) g/dL RDW 12.6 (11.0-15.0) % Plt Count 235 (150-450) 10^3/uL MPV 9.6 (9.5-13.5) fL Seg Neuts % (Manual) 60.0 Lymphocytes % (Manual) 23.0 (20.5-60.0) % Atypical Lymphs % (Man) 7.0 % Monocytes % (Manual) 7.0 (1.7-12.0) % Eosinophils % (Manual) 3.0 (0.9-7.0) % Basophils % (Manual) 0.0 L (0.2-2.0) % Neutrophils # (Manual) 6.90 H (1.4-6.5) 10^3/uL Lymphocytes # (Manual) 2.64 (1.20-3.80) 10^3/uL Abs Atypical Lymphs Man 0.80 Monocytes # (Manual) 0.80 (0.30-0.80) 10^3/uL Eosinophils # (Manual) 0.34 (0.00-0.70) 10^3/uL Basophils # (Manual) 0.00 (0.00-0.10) 10^3/uL Sodium 136 (136-145) mmol/L Potassium 4.2 (3.5-5.1) mmol/L Chloride 101 (98-107) mmol/L Carbon Dioxide 25.1 (21.0-32.0) mmol/L Anion Gap 14.1 BUN 29.0 H (7.0-18.0) mg/dL Creatinine 1.17 H (0.55-1.02) mg/dL Est GFR ( Amer) 56 L (>=60) Est GFR (Non-Af Amer) 46 L (>=60) BUN/Creatinine Ratio 24.8 Glucose 125 H (74-106) mg/dL Calcium 9.7 (8.5-10.1) mg/dL Troponin I High Sens 14.0 14.4 (4.0-51.3) pg/mL Imaging Data chest x-ray, CT chest: Radiologist's impression: Procedure: CT angio chest EXAM: CT angio chest HISTORY: SOB, recent pacemaker placement COMPARISON: None. TECHNIQUE: Contrast enhanced CT angiogram was obtained through the chest. Sagittal and coronal MIP images were submitted. Dose reduction techniques were achieved by using automated exposure control and/or adjustment of mA and/or kV according to patient size and/or use of iterative reconstruction technique. FINDINGS: Cardiovascular: The thoracic aorta is normal in caliber. No thoracic aortic dissection. Left-sided cardiac pacing generator with leads at right ventricle. Cardiomegaly. Trace pericardial effusion. No pericardial effusion. No pulmonary embolism. Mediastinum: No mediastinal or hilar lymphadenopathy. Pulmonary: No focal consolidation, pneumothorax, or pleural effusion. Osseous: No fracture. Osteophytes of the thoracic spine. No aggressive osseous lesion. Upper abdomen: The imaged portion of the upper abdomen is normal. IMPRESSION: 1. No pulmonary embolism. No thoracic aortic dissection or aneurysm. 2. No acute pulmonary abnormality. Electronically authenticated by: ADAMARIS JONES Date: 06/24/2023 13:10 Procedure: XR chest 1V EXAM: XR chest 1V INDICATION: CP. COMPARISON: Chest radiograph 06/18/2023. TECHNIQUE: Single frontal view of the chest FINDINGS: Left-sided ICD leads overlying the right atrium and right ventricle. Normal cardiomediastinal contours. No acute infiltrative process. No pleural effusion or pneumothorax. No acute osseous abnormality. IMPRESSION: No acute cardiopulmonary process. Electronically authenticated by: KUN KIM Date: 06/24/2023 11:05 ECG Data Attestation: I personally reviewed and interpreted this ECG as follows: (EKG on my interpretation shows no acute findings and sinus rhythm) Discharge Plan Discharge Chief Complaint: Shortness of Breath/Dyspnea Clinical Impression: Chest pain Patient Disposition: Home, Self-Care Time of Disposition Decision: 13:47 Condition: Good Mode of Transportation: Private Vehicle Prescriptions / Home Meds: New pantoprazole [Protonix] 40 mg tablet,delayed release (DR/EC) 40 mg PO DAILY 28 Days Qty: 28 0RF No Action Myrbetriq 50 mg tablet extended release 24 hr 50 mg PO Q24H acetaminophen 500 mg tablet 500 mg PO Q6H Instructions: Chest Pain (ED) Stand Alone Forms: Portal Instructions Referrals: WOO OSHEA [Primary Care Provider] - 1 week
[2023-06-24] MEDS: lidocaine HCL 15 ML, MAG HYDROX/ALUMINUM HYD/SIMETH 30 ML, HYOSCYAMINE SULFATE 0.25 MG PO (10:47)
[2023-06-24 10:48] LABS: Anion Gap 14.1; BUN Creatinine Ratio 24.8; Calcium 9.7 mg/dL (8.5-10.1); Carbon Dioxide 25.1 mmol/L (21.0-32.0); Chloride 101 mmol/L (98-107); Estimated GFR (African America 56 (>=60); Estimated GFR (Non-African Ame 46 (>=60); Glucose 125 mg/dL (74-106); Potassium 4.2 mmol/L (3.5-5.1); Sodium 136 mmol/L (136-145)
[2023-06-24 10:52] LABS: Hematocrit 39.7 % (36.0-48.0); Hemoglobin 12.9 g/dL (12.0-16.0); Mean Corpuscular HGB Conc 32.5 g/dL (29.9-35.2); Mean Corpuscular Hemoglobin 29.4 pg (26.7-34.0); Mean Corpuscular Volume 90.4 fL (81.0-99.0); Mean Platelet Volume 9.6 fL (9.5-13.5); Platelet Count 235 10^3/uL (150-450); Red Blood Count 4.39 10^6/uL (4.20-5.40); Red Cell Distribution Width 12.6 % (11.0-15.0); White Blood Count 11.5 10^3/uL (4.0-11.0)
[2023-06-24 11:01] LABS: Eosinophils Absolute Manual 0.34 10^3/uL (0.00-0.70); Lymphocytes Absolute Manual 2.64 10^3/uL (1.20-3.80)
[2023-06-24 11:49] LABS: Troponin I High Sensitivity 14.4 pg/mL (4.0-51.3)
--- NOTE | 2023-06-24 11:57 | CT_ITS ---
The [address] [address] Patient Name: GRISELDA DAVEY MRN: [id number] date: 1955 Sex: F Assigned Patient Location: ER Current Patient Location: ER Accession/Order Number: [id number] Exam Date: 06/24/2023 12:10 Report Date: 06/24/2023 13:10 At the request of: KYLEE MCLEAN Procedure: CT angio chest EXAM: CT angio chest HISTORY: SOB, recent pacemaker placement COMPARISON: None. TECHNIQUE: Contrast enhanced CT angiogram was obtained through the chest. Sagittal and coronal MIP images were submitted. Dose reduction techniques were achieved by using automated exposure control and/or adjustment of mA and/or kV according to patient size and/or use of iterative reconstruction technique. FINDINGS: Cardiovascular: The thoracic aorta is normal in caliber. No thoracic aortic dissection. Left-sided cardiac pacing generator with leads at right ventricle. Cardiomegaly. Trace pericardial effusion. No pericardial effusion. No pulmonary embolism. Mediastinum: No mediastinal or hilar lymphadenopathy. Pulmonary: No focal consolidation, pneumothorax, or pleural effusion. Osseous: No fracture. Osteophytes of the thoracic spine. No aggressive osseous lesion. Upper abdomen: The imaged portion of the upper abdomen is normal. CT/CT angio chest IMPRESSION: 1. No pulmonary embolism. No thoracic aortic dissection or aneurysm. 2. No acute pulmonary abnormality. Electronically authenticated by: ADAMARIS JONES Date: 06/24/2023 13:10
== END 2023-06-24 13:54 | disposition home or self-care (01) ==
PROVIDERS: Emergency Provider Emergency Medicine; PCP Family Medicine
DX: R07.9 Chest pain, unspecified (principal); R06.02 Shortness of breath; Z95.0 Presence of cardiac pacemaker
CPT/HCPCS: 36415; 71045; 71275; 80048; 84484; 85027; 93005; 99285; Q9967

== ENCOUNTER 2024-01-09 09:56 | Outpatient (OUT) | payer MEDICARE, SELFPAY ==
--- NOTE | 2024-01-09 10:01 | MM_ITS ---
Patient Name: GRISELDA DAVEY MR#: [id number] : 1955 Exam Date: 01/09/2024 Ordering Doctor: DR CR OSHEA RADIOLOGY REPORT PROCEDURE: MM TOMOSYNTHESIS SCREENING BI COMPARISON: MG MAMM SCREEN CECI W CAD, 07/30/2017. INDICATIONS: Screening Calculator Name NCI Breast Cancer Risk Assessment Tool 5 Year Breast Cancer Risk 1.40% Lifetime Breast Cancer Risk 4.20% Personal Breast Cancer No Personal Ovarian Cancer No Treatments None Family Cancers Father with stomach cancer at age ~55; Daughter with kidney cancer at age 38. LOCATION: The [facility] BREAST COMPOSITION: The breasts are heterogeneously dense,which may obscure small masses. FINDINGS: DIAGNOSTIC CATEGORY 2--BENIGN FINDING. NO CHANGE FROM COMPARISON. Scattered benign-appearing calcifications are present. Scattered benign-appearing lymph nodes are present. No significant change has occurred. RIGHT BREAST: No significant suspicious finding. LEFT BREAST: No significant suspicious finding. RECOMMENDATIONS: ROUTINE MAMMOGRAM AND CLINICAL EVALUATION IN 12 MONTHS. PLEASE NOTE: A NORMAL MAMMOGRAM DOES NOT EXCLUDE THE POSSIBILITY OF BREAST CANCER. A CLINICALLY SUSPICIOUS PALPABLE LUMP SHOULD BE BIOPSIED. Dictated by: Cr Hernandez MD on 01/21/2024 at 11:50 Approved by: Cr Hernandez MD on 01/21/2024 at 11:53
== END 2024-01-09 09:57 | disposition home or self-care (01) ==
LOC: MAMMO 09:56
PROVIDERS: PCP Family Medicine; Visit Provider Family Medicine
DX: Z12.31 Encounter for screening mammogram for malignant neoplasm of breast (principal); Z80.0 Family history of malignant neoplasm of digestive organs; Z80.51 Family history of malignant neoplasm of kidney
CPT/HCPCS: 77063; 77067

== ENCOUNTER 2024-01-17 08:06 | Outpatient (OUT) | payer MEDICARE, SELFPAY ==
--- OUTSIDE RECORDS SUMMARY | 2024-01-17 08:15 | XMS_ITS | CCD ---
Author Organization [facility] Care Team Providers Care Chopper Operator Name Role Phone DBOUK, TAREK A Unavailable Unavailable DEFRANCE, WOO T Unavailable Unavailable DBOUK, TAREK A Unavailable Unavailable [...] WOO Unavailable Unavailable DEFRANCE, WOO Unavailable Unavailable Unavailable Unavailable Unavailable Giovany Souza Unavailable DEFRANCE, DR BERKOWITZ Attending Unavailable DEFRANCE, DR BERKOWITZ Consulting Unavailable DEFRANCE, DR BERKOWITZ Primary Care Unavailable DEFRANCE, DR BERKOWITZ Admitting Unavailable Defrance Woo GONZALEZ Primary Care Provider [phone] SAKINA RIOS Referring Unavailable SAKINA RIOS Referring Unavailable SOM HAMM Attending Unavailable PAN LINDSEY Referring Unavailable KYLEE MCLEAN Referring Unavailable JAMIEDEBI Mendoza Admitting Unavailable AUSTYN LYONS Attending Unavailable AUSTYN LYONS Referring Unavailable SOM HAMM Referring Unavailable DEFRANCEWOO Referring Unavailable DEFRANCE, WOO Muñoz Primary Care Unavailable DEFRANCE, WOO Muñoz Referring Unavailable DEFRANCE, WOO Muñoz Primary Care Unavailable DEFRANCE, WOO Muñoz Referring Unavailable DEFRANCE, WOO Muñoz Primary Care Unavailable DE CHRISTINA, WOO YBARRA Primary Care Unavaila ble DE CHRISTINA, WOO YBARRA Referring Unavaila ble DI ADELITACELI Attending Unavailable DE CHRISTINA, WOO YBARRA Primary Care Unavaila ble KEANE, SUSHILA Attending Unavailable KEANE, SUSHILA Referring Unavailable DE CHRISTINA, WOO YBARRA Primary Care Unavaila ble KEANE, SUSHILA Referring Unavailable DEFRANCE, WOO Muñoz Attending Unavailable DEFRANCE, WOO Muñoz Referring Unavailable DEFRANCE, WOO Muñoz Primary Care Unavailable DEFRANCE, WOO Muñoz Attending Unavailable DEFRANCE, WOO Muñoz Referring Unavailable DEFRANCE, WOO Muñoz Primary Care Unavailable DEFRANCE, WOO Muñoz Attending Unavailable DEFRANCE, WOO Muñoz Referring Unavailable DEFRANCE, WOO Muñoz Primary Care Unavailable HARTMANNFABRIZIO Attending Unavailable DEFRANCE, WOO Muñoz Referring Unavailable DEFRANCE, WOO Muñoz Primary Care Unavailable Allergies Allergy Classification Reported Allergen(s) Allergy Type Date of Onset Reaction(s) Facility (1 source) 90280,00 Drug allergy (disorder) 7 [facility] Repository (1 source) ALLERGIES NOT ON FILE; Translations: [ALLERGIES NOT ON FILE] Propensity to adverse reactions (disorder) [facility] Repository Medications Current Medications Medication Drug Class(es) Dates Sig (Normalized) Sig (Original) aspirin 81 mg delayed release oral tablet (3 sources) Platelet Aggregation Inhibitor, Nonsteroidal Anti-inflammatory Drug Start: 08-02-2023 take 1 tablet by mouth in the morning aspirin 81 mg Take 1 tablet (81 mg total) by mouth in the morning. 0 08/02/2023 Active FYBLAHA-FIRAYITHM-CZO C ORAL (4 sources) take 1 capsule by mouth in the evening [id number] NC ORAL Take 1 capsule by mouth in the evening. 0 Active cholecalciferol, vitamin D3, (VITAMIN D3 ORAL) (4 sources) take 2 capsules by mouth in the morning cholecalciferol, vitamin D3, (VITAMIN D3 ORAL) Take 2 capsules by mouth in the morning. 0 Active clopidogrel 75 mg oral tablet (3 sources) P2Y12 Platelet Inhibitor Start: 08-02-2023 take 1 tablet by mouth in the morning clopidogreL (PLAVIX) 75 mg tablet Take 1 tablet (75 mg total) by mouth in the morning. 30 tablet 11 08/02/2023 Active docosahexaenoic acid/epa (FISH OIL ORAL) (4 sources) take 1 capsule by mouth in the morning docosahexaenoic acid/epa (FISH OIL ORAL) Take 1 capsule by mouth in the morning. Osteo Bi-flex. 0 Active escitalopram 10 mg oral tablet (6 sources) Serotonin Reuptake Inhibitor Start: 08-02-2023 End: 08-07-2023 take 2 tablets by mouth in the morning escitalopram (LEXAPRO) 10 mg tablet Take 2 tablets (20 mg total) by mouth in the morning. 180 tablet 3 08/07/2023 Active Start: 07-05-2023 End: 08-02-2023 take 1 tablet by mouth in the morning escitalopram (LEXAPRO) 10 mg tablet Take 1 tablet (10 mg total) by mouth in the morning. 30 tablet 5 07/05/2023 08/02/2023 Discontinued 24 hr mirabegron 50 mg extended release oral tablet (4 sources) beta3-Adrenergic Agonist Start: 06-04-2023 take 1 tablet by mouth every twenty-four hours in the morning MYRBETRIQ 50 mg tablet extended release 24 hr Take 1 tablet (50 mg total) by mouth in the morning. 0 06/04/2023 Active MULTIVITAMIN ORAL (4 sources) take 1 capsule by mouth in the morning MULTIVITAMIN ORAL Take 1 capsule by mouth in the morning. Hair, Skin, and Nails. 0 Active pantoprazole 40 mg delayed release oral tablet (5 sources) Proton Pump Inhibitor Start: 2023 End: 07-05-2023 take 1 tablet by mouth once daily pantoprazole (PROTONIX) 40 mg EC tablet take 1 tablet by mouth once daily 90 tablet 1 07/05/2023 Active vit A/vit C/vit E/zinc/copper (PRESERVISION AREDS ORAL) (4 sources) take 1 capsule by mouth in the morning vit A/vit C/vit E/zinc/copper (PRESERVISION AREDS ORAL) Take 1 capsule by mouth in the morning. 0 Active Completed/Discontinued Medications Medication Drug Class(es) Dates Sig (Normalized) Sig (Original) naproxen 500 mg oral tablet (1 source) Nonsteroidal Anti-inflammatory Drug Start: 01-11-2022 End: 07-05-2023 take 1 tablet by mouth in the morning, then take 1 tablet by mouth at bedtime naproxen (NAPROSYN) 500 mg tablet Take 1 tablet (500 mg total) by mouth in the morning and 1 tablet (500 mg total) before bedtime. 180 tablet 1 01/11/2022 07/05/2023 Discontinued (Alternate therapy) 24 hr propranolol hydrochloride 80 mg extended release oral capsule (1 source) beta-Adrenergic Bryon Start: 05-28-2023 End: 07-05-2023 propranolol LA (INDERAL LA) 80 mg 24 hr capsule TAKE 1 CAPSULE IN THE MORNING 90 capsule 1 05/28/2023 07/05/2023 Discontinued (Alternate therapy) sod sulf-pot chloride-mag sulf 1.479-0.188- 0.225 gram tablet (1 source) Start: 01-10-2023 End: 07-05-2023 sod sulf-pot chloride-mag sulf 1.479-0.188- 0.225 gram tablet Indications: Rectal bleeding Please see instructional sheet given by physicians office. 24 tablet 0 01/10/2023 07/05/2023 Discontinued (Alternate therapy) Problems Active Problems Problem Classification Problem Date Documented Da te Episodic/Chronic Conduction disorders (14 sources) Left bundle branch block; Translations: [Left bundle-branch block, unspecified] Onset: 06-14-2018 07-05-2023 Chronic Deficiency and other anemia (1 source) Other iron deficiency anemias; Translations: [Other iron deficiency anemias] Onset: 12-25-2023 Episodic Disorders of lipid metabolism (5 sources) Mixed hyperlipidemia; Translations: [MIXED HYPERLIPIDEMIA] Onset: 01-12-2022 Chronic Gastrointestinal hemorrhage (1 source) Hemorrhage of anus and rectum; Translations: [Hemorrhage of anus and rectum] Onset: 12-31-2023 Episodic Genitourinary symptoms and ill-defined conditions (4 sources) Urinary incontinence; Translations: [Unspecified urinary incontinence] Onset: 12-25-2016 09-18-2022 Chronic Heart valve disorders (8 sources) Mitral valve prolapse; Translations: [Nonrheumatic mitral (valve) prolapse] Onset: 07-16-2017 07-05-2023 Chronic Immunizations and screening for infectious disease (3 sources) Encounter for immunization; Translations: [Encounter For Immunization] Onset: 09-03-2020 Episodic Osteoarthritis (6 sources) Bilateral primary osteoarthritis of hip; Translations: [Degenerative joint disease involving multiple joints] Onset: 03-16-2017 07-16-2017 Chronic Osteoporosis (1 source) Age-related osteoporosis without current pathological fracture; Translations: [Age-related osteoporosis without current pathological fracture] Onset: 12-25-2023 Chronic Other connective tissue disease (1 source) Weakness of face muscles; Translations: [Facial weakness] 08-02-2023 Episodic Other screening for suspected conditions (not mental disorders or infectious disease) (2 sources) Encounter for screening mammogram for malignant neoplasm of breast; Translations: [Encounter for screening for malignant neoplasm of colon] Onset: 12-25-2023 Episodic Prolapse of female genital organs (8 sources) Herniation of rectum into vagina; Translations: [Rectocele] Onset: 09-07-2017 01-22-2018 Chronic Residual codes; unclassified (1 source) Family history of malignant neoplasm of digestive organs; Translations: [Family history of malignant neoplasm of digestive organs] Onset: 12-31-2023 Episodic Transient cerebral ischemia (3 sources) Transient cerebral ischemia; Translations: [Transient cerebral ischemic attack, unspecified] Onset: 08-02-2023 08-02-2023 Chronic Unclassified (2 sources) MIXED INCONTINENCE URGE AND STRESS / MIXED INCONTINENCE URGE AND STRESS() Onset: 09-24-2017 Unclassified (2 sources) Unknown / UNK(Unknown) Onset: 01-11-2017 Unclassified (1 source) Colon Cancer Screening Onset: 12-31-2023 Unclassified (1 source) Annual Exam Onset: 12-25-2023 Unclassified (1 source) MARIA DE JESUS Onset: 07-05-2023 Past or Other Problems Problem Classification Problem Date Documented Da te Episodic/Chronic Cardiac dysrhythmias (8 sources) Bradycardia; Translations: [Bradycardia, unspecified] Onset: 06-19-2023 07-05-2023 Episodic Conditions associated with dizziness or vertigo (4 sources) Benign paroxysmal positional vertigo; Translations: [Benign paroxysmal vertigo, unspecified ear] Onset: 05-05-2019 05-05-2019 Episodic Mood disorders (4 sources) Mood disorder; Translations: [Unspecified mood [affective] disorder] Onset: 12-20-2022 Resolved: 12-20-2022 12-20-2022 Chronic Mood disorders (4 sources) Mood disorders Onset: 01-04-2024 Resolved: 08-02-2023 07-05-2023 Other connective tissue disease (1 source) Arthrodesis status; Translations: [ARTHRODESIS STATUS] Onset: 03-16-2017 Episodic Other connective tissue disease (2 sources) Facial weakness; Translations: [Facial weakness] Onset: 08-02-2023 Episodic Other fractures (7 sources) Multiple fractures of pelvis without disruption of pelvic ring, subsequent encounter for fracture with routine healing; Translations: [Fracture of unspecified parts of lumbosacral spine and pelvis, subsequent encounter for fracture with routine healing] Onset: 01-11-2017 Episodic Other lower respiratory disease (4 sources) Dyspnea; Translations: [Shortness of breath] Onset: 06-14-2018 06-14-2018 Episodic Unclassified (2 sources) MIXED INCONTINENCE URGE AND STRESS; Translations: [mixed incontinence urge and stress] Onset: 09-24-2017 Unclassified (4 sources) Onset: 11-22-2018 11-22-2018 Results Test Name Value Interpretation Reference Range Facility [facility] 10-05-2023 CNOV Office Visit (NECVS8 ) LUMA DAVEY ([id number]) 1955 F Date Time Provider Department 10/05/23 9:00 AM CELI RODRIGUES [id number] During your visit today, we recorded the following information about you: Temperature Pulse Respiration Blood pressure 96.9 degrees 83/minute 14/minute 122/65 Weight Height 72.6 kg 1.66 m Celi Rodrigues MD, PhD 10/05/2023 12:38 PM Signed [facility] Initial Consultation requested by Woo Hayden Consultation requested by Dr. Killian for an opinion regarding TIA. My final recommendations will be communicated back to the requesting physician by way of shared Medical record or letter to requesting physician via US mail. 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 History of Event: 03/2023: Daily intermittent bilateral lip and chin tingling for a few minutes Was wearing a smart watch and low HR down to mid 40 bpm was detected 06/16/23: Took her horses to the [facility]. Once she had loaded the horse, she had new onset dizziness (spinning), no nausea, and fell to the left twice, no LOC, no injury to head or other body part. Kelly fine right after. Drove home with her horse trailer and felt fine. 06/18/23: Called her PCP and was told to go to the ED. Went to the ED and was then transferred to [facility] Diagnosed with Left BBB bundle and AV block S/p pacemaker 06/21/23 No symptoms for 2-3 weeks afterwards Recurrence of lip tingling for a while but none recently. 08/02/23: Saw PCP, Dr. Killian for lip numbness x2 days Started on ASA 81 mg and Plavix 75 mg daily 48h Holter monitor (08/26/23): 102 supraventricular ectopic rhythms; 13 runs of non-sustained VT MRI brain (08/30/23): no acute findings; FLAIR hyperintensities c/w sequela of chronic microangiopathy Carotid US (08/30/23): <50% bilateral stenosis Father with Afib and stroke at age 82 years Mother with pacemaker and stroke shortly after pacemaker implantation at age 80 years Patient is the oldest of 5 siblings. None of her siblings have a h/o stroke. Antiplatelets/Anticoagu lants: Aspirin and Clopidogrel Residual Deficits: No residual deficits Interval: Has been doing well. No new symptoms. Antiplatelets/anticoagu lation: ASA 81 mg daily, Plavix 75 mg daily Statin/lipid lowering agent: none Tobacco: never Sleep: ok , TV may interfere with her sleep; says that she snores; wakes up rested, no morning headaches, no daytime sleepiness Current Outpatient Medications Medication Sig clopidogrel (PLAVIX) 75 mg tablet Take 75 mg by mouth every morning. aspirin, enteric coated (ASPIRIN, ENTERIC COATED) 81 mg EC tablet Take by mouth every 24 hours. escitalopram oxalate (LEXAPRO) 10 mg tablet Take 20 mg by mouth every morning. ascorbic acid (VITAMIN C ORAL) Take by mouth once daily. vitamin B complex (B COMPLEX 1 ORAL) Take by mouth once daily. ferrous sulfate 325 mg (65 mg iron) tablet Take 325 mg by mouth as needed. glucosamine HCl (GLUCOSAMINE, BULK, MISC) Take by mouth once daily. MYRBETRIQ 50 mg Tb24 Take 50 mg by mouth once daily. Ca Carb-Mag Cmb 11-D3-Zn Sulf [id number] nx-omjt-pu-mg tab Take by mouth once daily. No current facility-administered medications for this visit. ALLERGIES No Known Allergies PAST MEDICAL HISTORY Diagnosis Date LBBB (left bundle branch block) Mitral regurgitation MVP (mitral valve prolapse) Osteoarthrosis involving multiple sites PAST SURGICAL HISTORY Procedure Laterality Date PELVIS OP SURGERY pelvic surgery S SLING BLADDER 2017 Family History Problem Relation Age of Onset Stroke Mother Ischemic Heart Disease Mother s/p PCI other (pacemaker) Mother Stroke Father other (atrial fibrillation) Father other (valvular heart disease) Father SOCIAL HISTORY No social history on file. BP 122/65 (BP Site: Left Arm, BP Position: Sitting, BP Cuff Size: Regular Adult) Pulse 83 Temp 36.1 ?C (96.9 ?F) (Temporal) Resp 14 Ht 166 cm (5' 5.35 ) Wt 72.6 kg (160 lb) SpO2 99% BMI 26.34 kg/m? EXAM PHYSICAL EXAM: General appearance: Awake and alert. No distress. Cooperative with exam. Normal speech: no aphasia or dysarthria. NEUROLOGICAL EXAM: Mental Status: Alert, oriented to person, place and time and Follows commands. Cranial Nerves: CNII: Visual sanchez full to confrontation, No APD noted on exam CNIII, IV, : Pupils equal, round and reactive to light, full extraoccular movements, without nystagmus CN V: Facial sensation intact bilaterally to fine touch CN VII: Facial muscles symmetric and strong, No noted (more content not included)... Normal [facility] CNOVon 09-24-2023 CNOV Office Visit (KIMBER ) LUMA DAVEY ([id number]) 1955 F Date Time Provider Department 09/24/23 12:30 PM SUSHILA KEANE During your visit today, we recorded the following information about you: Pulse Blood pressure Weight Height 89/minute 144/77 73.9 kg 1.66 m Sushila Keane MD 09/27/2023 9:48 PM Signed [facility] Department of Cardiovascular Medicine SECTION OF CARDIOVASCULAR IMAGING OUTPATIENT VISIT DATE September 24, 2023 OUTPATIENT VISIT TYPE NEW (>3yr since last seen) CHIEF COMPLAINT: Further evaluation of valve disease HISTORY OF PRESENT ILLNESS: Ms. Davey is a 68 year old female from [place], [place] who presents for follow-up. Since last seen, interval PPM (syncope, 2HB) Jun 2023; subsequently reported intermittent lip numbness and was evaluated for TIA locally (unexplained by MRI Brain, Holter, US Carotids. 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 Parents had stroke. History of LBBB, bileaflet mitral valve prolapse with mild MR/TR. PAST MEDICAL HISTORY Diagnosis Date LBBB (left bundle branch block) Mitral regurgitation MVP (mitral valve prolapse) PAST SURGICAL HISTORY Procedure Laterality Date PELVIS OP SURGERY pelvic surgery S SLING BLADDER 2017 SOCIAL HISTORY Social History Tobacco Use Smoking status: Former Packs/day: 0.10 Years: 1.00 Additional pack years: 0.00 Total pack years: 0.10 Types: Cigarettes Quit date: 07/23/1976 Years since quittin.1 Smokeless tobacco: Never Substance Use Topics Alcohol use: No Comment: occasional Drug use: No FAMILY HISTORY Problem Relation Age of Onset Stroke Mother Ischemic Heart Disease Mother s/p PCI other (pacemaker) Mother Stroke Father other (atrial fibrillation) Father other (valvular heart disease) Father ALLERGIES: ALLERGIES [...] once daily. Ca Carb-Mag Cmb 11-D3-Zn Sulf [phone] ht-gyqe-wh-mg tab Take by mouth once daily. naproxen (NAPROSYN) 500 mg tablet Take 500 mg by mouth once daily. TURMERIC ORAL once daily. propranolol (INDERAL) 80 mg tablet Take 80 mg by mouth once daily. CARDIOVASCULAR MEDICINE TESTING: General: In no acute distress Skin: No clubbing, no cyanosis Eyes: Extra ocular movements intact Oropharynx: In good repair Neck: No jugular venous distention Lungs: Clear Heart: Regular rhythm, S1, S2 normal, no S3, no S4, and v soft sys murmur Abdomen: Soft Extremities: No peripheral edema Neuro: Oriented to person, place and time, alert, cooperative, gait coordinated CARDIAC TESTING: Electrocardiogram: ATRIAL-PACED RHYTHM COMPLETE LEFT BUNDLE BRANCH BLOCK ABNORMAL ECG I have personally reviewed the above. IMPRESSION: Ms. Davey is a 68 year old female from [place], [place] who presents for follow-up. Since last seen, interval PPM (syncope, 2HB) Jun 2023; subsequently reported intermittent lip numbness and was evaluated for TIA locally (unexplained by MRI Brain, Holter, US Carotids. 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 Parents had stroke. History of LBBB, bileaflet mitral valve prolapse with mild MR/TR. PLAN AND RECOMMENDATIONS: Prevention advice. Follow-up with PCP at least 12 monthly and here prn if symptoms don't settle/improve. CONTACT INFORMATION: Sushila Keane MD, PhD, [facility] Winding Inspector And Testerstation repairer, [facility], Staff, Section of Cardiovascular Imaging, Co-Director Cardio-Oncology Center, Transformer Assembler of the Echocardiographic Lab, [facility] Dept. Of Cardiovascular Medicine, [address] / [address] [place], [place] [address] Appt: [phone] Referring Provider: SUSHILA KEANE [[id number]] Allergies As of Date: 09/24/2023 (No Known Allergies) Date Reviewed: 09/24/2023 Reviewed by: Javier Ospina MA - Fully Assessed Primary Visit Diagnosis:LBBB (left bundle branch block) [I44.7] Other Visit Diagnoses:Pacemaker [Z95.0] Nonrheumatic mitral valve regurgitation [I34.0] Order(s):CARDIOVASCULAR MEDICINE OP FOLLOW UP APPT ORDER [[id number]] Order #: [id number]: 1 FUTURE Prescriptions as of 09/27/2023 - ascorbic acid (VITAMIN C ORAL) Take by mouth once daily. - vitamin B complex (B COMPLEX 1 ORAL) Take by mouth once daily. - ferrous sulfate 325 mg (65 mg iron) tablet Take 325 mg by mouth as needed. - glucosamine HCl (GLUCOSAMINE, BULK, MISC) Take by mouth once daily. - MYRBETRIQ 50 mg Tb24 Take 50 mg by mouth once daily (more content not included)... Normal [facility] ECG COMPLETEon 09-24-2023 ECG COMPLETE Ventricular Rate : 8 0 BPM Atrial Rate : 80 BPM P-R Interval : 192 ms QRS Duration : 136 ms Q-T Interval : 446 ms QTC Calculation(Bazett) : 514 ms Calculated P Vinton : 58 degrees Calculated R Vinton : -18 degrees Calculated T Vinton : 27 degrees ATRIAL-PACED RHYTHM COMPLETE LEFT BUNDLE BRANCH BLOCK ABNORMAL ECG Confirmed by BABATUNDE WEAVER MD ([id number]) on 10/14/2023 6:43:06 PM NAME : LUMA DAVEY PID : [id number] : 1955 Gender : Female Race : ORD : [id number] Procedure Date : Sep 24 2023 12:35:33 Edit Date : Oct 14 2023 18:43:10 Diagnosis: ATRIAL-PACED RHYTHM COMPLETE LEFT BUNDLE BRANCH BLOCK ABNORMAL ECG Confirmed by BABATUNDE WEAVER MD ([id number]) on 10/14/2023 6:43:06 PM Test Reason : Location : 314 : J14 J1-4 Overread By : BABATUNDE WEAVER MD Edited By : BABATUNDE WEAVER MD Referred By : SUSHILA KEANE Acquired by : MONA KRUSE [facility] MR BRAIN WO CONTon MR BRAIN WO CONT MR BRAIN WO CONT EXAM:MR BRAIN WO CONT INDICATION: Transient ischemic attack (TIA) COMPARISON: 09/12/2011. TECHNIQUE: Multiplanar multisequence pre and post contrast MR sequences through the head/brain. BRAIN FINDINGS: Brain Parenchyma: No acute hemorrhage, cerebral edema, or acute infarction. No mass, mass effect, or midline shift. Scattered foci of T2/FLAIR hyperintensity in the periventricular and subcortical white matter likely reflects the sequela of chronic microangiopathy. Ventricles and Sulci: Normal for age. Extra-Axial Spaces: No extra-axial fluid collection. Intracranial Flow-Voids: Arterial and venous sinus flow voids appear normal. Orbits: Within normal limits. Paranasal Sinuses: Nonaggressive mucosal thickening ethmoid air cells. Mastoid Air Cells: Clear. Cranium: Within normal limits. Extracranial Soft Tissues: Within normal limits. IMPRESSION: 1. No acute/subacute ischemia. 2. Scattered foci of T2/FLAIR hyperintensity in the periventricular and subcortical white matter likely reflects the sequela of chronic microangiopathy. Approved by Resident Juan Arredondo MD on 08/30/2023 2:50 PM I, Dylan George MD have personally reviewed the image(s) and agree with and/or edited the report Finalized by Dylan George MD on 08/31/2023 7:12 AM Normal [facility] Office Visiton 07-24-2023 Follow-up visit [id number] InLuma mackenzie 1955 F Date Provider Department Center 07/24/2023 Ingrid-SOM HAMM Family History Problem Relation Age of Onset Other Mother Stroke Mother Stroke Father Valvular heart disease Father Atrial fibrillation Father Family Status - Relation Status Age at Mother Father Level of Service:[id number] FL OFFICE/OUTPATIENT ESTABLISHED MOD MDM 30 MIN Normal [facility] 30on 06-22-2023 30 The patient is Moderately [...] and behaviors that affect risk of falls Clarissa fall precautions as indicated by assessment Educate [...] antiarrhythmia medication and electrolyte replacement as ordered Normal [facility] Letter (Out)on 06-22-2023 Letter (Out) [id number] Luma Davey 1955 F Date Provider Department Center 06/22/2023 [id number], GENERIC PRO*INIT None No family history on file Normal [facility] 30on 06-21-2023 30 The patient is Moderately Stable - Low risk of patient condition declining or worsening The patient's goals for the shift include comfort The clinical goals for the shift include stable vitals [facility] 30 The patient is Moderately Stable - [...] status, cognitive ability or social support system [facility] 30 Routine stress tests Patient information sheet [...] and hemodynamically stable. Full final report from quotation checker to follow Shanta oRbbins, MSN, COLOR PRINTER OPERATOR Stress Lab [facility] 30 Daily Case Managemen t Update Multidisciplinary [...] Consultation Consultation and Management 06/19/23 1148 Normal [facility] BASIC METABOLIC PANELon 06-02 Anion gap [Moles/Vol] 8 mmol/L Normal 7-20 [facility] Comment on above: Performed By: #### L AB125 #### [facility] ([facility]) [address] [place] [address] Calcium [Mass/Vol] 9.0 mg/dL Normal 8.6-10.3 [facility] Comment on above: Performed By: #### L AB125 #### [facility] ([facility]) [address] [place] [address] Chloride [Moles/Vol] 109 mmol/L High 98-107 [facility] [facility] Comment on above: Performed By: #### L [id number] #### [facility] (BEAKER) [address] [place] [address] CO2 [Moles/Vol] 24 mmol/L Normal 21-31 [facility] Comment on above: Performed By: #### L [id number] #### [facility] (BEAKER) [address] [place] [address] Creatinine [Mass/Vol] 1.05 mg/dL Normal 0.60-1.20 [facility] Comment on above: Performed By: #### L [id number] #### [facility] (BEAKER) [address] [place] [address] GLOMERULAR FILTRATION RATE ML/MIN/1.73 SQ M.PREDICTED 57.9 mL/min/1.73m*2 Low >60.0 [facility] Comment on above: Result Comment: [facility]???s estimated glomerular filtration rate (eGFR) will [...] group of individuals. Performed By: #### L [id number] #### [facility] ([employer]) [address] [place] [address] Glucose [Mass/Vol] 108 mg/dL High 70-100 [facility] Comment on above: Performed By: #### L [id number] #### [facility] (BEAKER) [address] [place] [address] Potassium [Moles/Vol] 4.2 mmol/L Normal 3.5-5.1 [facility] Comment on above: Performed By: #### L [id number] #### [facility] ([employer]) [address] [place] [address] Sodium [Moles/Vol] 137 mmol/L Normal 136-145 [facility] Comment on above: Performed By: #### L [id number] #### [facility] (BEAKER) [address] [place] [address] Urea nitrogen [Mass/Vol] 25 mg/dL Normal 7-25 [facility] Comment on above: Performed By: #### L [id number] #### [facility] ([employer]) [address] [place] [address] UREA NITROGEN/CREATININE (MASS RATIO) IN SER/PLAS 23.8 Normal [facility] Comment on above: Performed By: #### L [id number] #### [facility] ([employer]) [address] [place] [address] CBCon 06-21-2023 Erythrocyte distribution width (RBC) [Ratio] 12.7 % Normal 11.5-15.0 [facility] Comment on above: Performed By: #### L [id number] #### [facility] ([facility]) [address] [place] [address] ERYTHROCYTE MEAN CORPUSCULAR HEMOGLOBIN CONCENTRATION (G/DL) BY AUTOMATED 33.4 g/dL Normal 32.0-35.0 [facility] Comment on above: Performed By: #### L [id number] #### [facility] ([facility]) [address] [place] [address] Hematocrit (Bld) [Volume fraction] 38.6 % Normal 36.0-48.0 [facility] Comment on above: Performed By: #### L [id number] #### [facility] ([facility]) [address] [place] [address] Hemoglobin (Bld) [Mass/Vol] 12.9 g/dL Normal 12.0-15.0 [facility] Comment on above: Performed By: #### L [id number] #### [facility] ([facility]) [address] [place] [address] MCH (RBC) [Entitic mass] 29.4 pg Normal 27.0-33.0 [facility] Comment on above: Performed By: #### L [id number] #### [facility] ([facility]) [address] [place] [address] MCV (RBC) [Entitic vol] 87.9 fL Normal 82.0-98.0 [facility] Comment on above: Performed By: #### L [id number] #### [facility] ([facility]) [address] [place] [address] PLATELETS (10*3/UL) IN BLOOD AUTOMATED COUNT 208 10*3/uL Normal 150-400 [facility] Comment on above: Performed By: #### L [id number] #### [facility] ([facility]) [address] [place] [address] RBC (Bld) [#/Vol] 4.39 10*6/uL Normal 3.80-5.00 [facility] Comment on above: Performed By: #### L [id number] #### [facility] ([facility]) [address] [place] [address] WBC (Bld) [#/Vol] 6.57 10*3/uL Normal 4.00-10.60 [facility] Comment on above: Performed By: #### L [id number] #### [facility] ([facility]) [address] [place] [address] CONSULTon 06-21-2023 CONSULT R [place] Electrophysiology Consult Note Reason for visit: Bradycardia: 2:1 AV block HPI: Luma Davey is a 67 y.o. year old with past medical history of LBBB, MVP with mild MR, palpitations on propanlol, who presents as a transfer from [facility] for symptomatic bradycardia. She has been experiencing dizziness which occurs with neck movement. She also feels very SOB with activity. Dizziness comes in episodes. However, on Sunday, her [...] stroke-like symptoms with tingling, numbness, and dizziness. While I was conversing with her, she would go into 2:1 AV bloc with HR 44bpm and also has 1:1 conduction and at this time, no symptom noted. Since admission her Propranolol was stopped and despite this, AV block persists. PMH: History reviewed. No pertinent past medical history. PSH: Past Surgical History: Procedure Laterality Date CTA CHEST W AND/OR WO IV CONTRAST 10/24/2016 CT CHEST ANGIOGRAM W AND/OR WO IV CONTRAST [place] CONVERSION SH: Social Determinants of Health Tobacco Use: Low Risk (06/19/2023) Patient History Smoking Tobacco Use: Never Smokeless Tobacco Use: Never Passive Exposure: Not on file Alcohol Use: Not on file Financial Resource Strain: Low Risk (06/19/2023) Overall Financial Resource Strain (CARDIA) Difficulty of Paying Living Expenses: Not hard at all Food Insecurity: Unknown (06/19/2023) Hunger Vital Sign Worried About Running Out of Food in the Last Year: Never true Ran Out of Food in the Last Year: Not on file Transportation Needs: Unknown (06/19/2023) PRAPARE - Transportation Lack of Transportation (Medical): No Lack of Transportation (Non-Medical): Not on file Physical Activity: Not on file Stress: Not on file Social Connections: Not on file Intimate Partner Violence: Unknown (06/19/2023) Humiliation, Afraid, Rape, and Kick questionnaire Fear of Current or Ex-Partner: No Emotionally Abused: Not on file Physically Abused: Not on file Sexually Abused: Not on file Depression: Not on file Housing Stability: Unknown (06/19/2023) Housing Stability Vital Sign Unable to Pay for Housing in the Last Year: Not on file Number of Places Lived in the Last Year: Not on file Unstable Housing in the Last Year: No Allergies: No Known Allergies Weight: @WEIGHT@ Visit Vitals BP 159/61 (BP Location: Left arm, Patient Position: Lying) Pulse 59 Temp 36.8 ???C (98.2 ???F) (Temporal) Resp 14 Ht 1.651 m (5' 5 ) Wt 77 kg (169 lb 12.1 oz) SpO2 94% BMI 28.25 kg/m??? OB Status Postmenopausal Smoking Status Never BSA 1.88 m??? Meds: No current facility-administered medications on file prior to encounter. Current Outpatient Medications on File Prior to Encounter Medication Sig Dispense Refill naproxen (Naprosyn) 500 mg tablet Take 500 mg by mouth twice a day. Myrbetriq 50 mg tablet extended release 24 hr propranolol LA (Inderal LA) 80 mg 24 hr capsule ROS: GENERAL: Denies fever, chills, night sweats, weight loss. CARDIOVASCULAR: Denies chest pain, exertional dyspnea, orthopnea/PND, lower extremity edema, palpitations, lightheadedness/dizzine ss, syncope. RESPIRATORY: Denies SOB, coughing, wheezing GI: Denies abdominal pain, nausea/vomiting. PSYCH: Denies anxiety. Physical Exam: Constitutional General Appearance: well-nourished, well-developed, appears stated age Level of Distress: comfortable Psychiatric Mental Status: alert, normal affect Orientation: oriented to time, place, and person Insight: good judgement Eyes Lids and Conjunctivae: non-injected, no xanthelasma ENMT Ears: no lesions on external ear Nose: no lesions on external nose Oropharynx: no cyanosis, no pallor Neck Neck: supple, trachea midline Carotid Arteries: bilateral normal upstroke, no bruits Jugular Veins: normal jugular venous pressure Thyroid: not enlarged Lungs Respiratory Effort: unlabored Chest Exam: normal curvature, no thoracic deformity Auscultation: clear, no wheezing, no rales, no rhonchi Cardiovascular Rate And Rhythm: regular Heart Sounds: normal S1, normal s2, no gallop Systolic Murmur: not heard Diastolic Murmur: n (more content not included)... Normal [facility] 30on 06-20-2023 30 The patient is Moderately Stable - Low risk of patient condition declining or worsening The patient's goals for the shift include comfort The clinical goals for the shift include stable vitals Normal [facility] 30 Daily Case Managemen t Update [...] Consultation Consultation and Management 06/19/23 1148 Normal [facility] 30 Problem: Pain - Adul t Goal: Verbalizes/displays adequate comfort level or baseline comfort level Outcome: Progressing Flowsheets (Taken 06/20/2023 0800) Verbalizes/displays adequate comfort level or baseline comfort [...] falls Assess patient frequently for physical needs Clarissa fall precautions as indicated by assessment Educate [...] Monitor la (more content not included)... Normal [facility] BASIC METABOLIC PANELon 12-2 -2022 Anion gap [Moles/Vol] 9 mmol/L Normal - [facility] Comment on above: Performed By: #### L [id number] #### [facility] ([facility]) [address] [place] [address] Calcium [Mass/Vol] 8.9 mg/dL Normal 8.6-10.3 [facility] Comment on above: Performed By: #### L [id number] #### [facility] ([facility]) [address] [place] [address] Chloride [Moles/Vol] 107 mmol/L Normal 98-107 [facility] Comment on above: Performed By: #### L [id number] #### [facility] ([facility]) [address] [place] [address] CO2 [Moles/Vol] 24 mmol/L Normal 21-31 [facility] Comment on above: Performed By: #### L [id number] #### [facility] ([facility]) [address] [place] [address] Creatinine [Mass/Vol] 1.07 mg/dL Normal 0.60-1.20 [facility] Comment on above: Performed By: #### L [id number] #### [facility] ([facility]) [address] [place] [address] GLOMERULAR FILTRATION RATE ML/MIN/1.73 SQ M.PREDICTED 56.6 mL/min/1.73m*2 Low >60.0 [facility] Comment on above: Result Comment: [facility]???s estimated glomerular filtration rate (eGFR) will [...] individuals. Performed By: #### L [id number] #### [facility] ([facility]) [address] [place] [address] Glucose [Mass/Vol] 104 mg/dL High 70-100 [facility] Comment on above: Performed By: #### L [id number] #### [facility] ([facility]) [address] [place] [address] Potassium [Moles/Vol] 4.1 mmol/L Normal 3.5-5.1 [facility] Comment on above: Performed By: #### L [id number] #### [facility] ([facility]) [address] [place] [address] Sodium [Moles/Vol] 136 mmol/L Normal 136-145 [facility] Comment on above: Performed By: #### L [id number] #### [facility] ([facility]) [address] [place] [address] Urea nitrogen [Mass/Vol] 22 mg/dL Normal 7-25 [facility] Comment on above: Performed By: #### L [id number] #### [facility] ([facility]) [address] [place] [address] UREA NITROGEN/CREATININE (MASS RATIO) IN SER/PLAS 20.6 Normal [facility] Comment on above: Performed By: #### L [id number] #### [facility] ([facility]) [address] [place] [address] CBCon 06-20-2023 Erythrocyte distribution width (RBC) [Ratio] 12.7 % Normal 11.5-15.0 [facility] Comment on above: Performed By: #### L [id number] #### [facility] ([employer]) [address] [place] [address] ERYTHROCYTE MEAN CORPUSCULAR HEMOGLOBIN CONCENTRATION (G/DL) BY AUTOMATED 33.8 g/dL Normal 32.0-35.0 [facility] Comment on above: Performed By: #### L [id number] #### [facility] [address] [place] [address] Hematocrit (Bld) [Volume fraction] 37.9 % Normal 36.0-48.0 [facility] Comment on above: Performed By: #### L [id number] #### [facility] (BEAKER) [address] [place] [address] Hemoglobin (Bld) [Mass/Vol] 12.8 g/dL Normal 12.0-15.0 [facility] Comment on above: Performed By: #### L [id number] #### [facility] (BEAKER) [address] [place] [address] MCH (RBC) [Entitic mass] 29.7 pg Normal 27.0-33.0 [facility] Comment on above: Performed By: #### L [id number] #### [facility] (BEAKER) [address] [place] [address] MCV (RBC) [Entitic vol] 87.9 fL Normal 82.0-98.0 [facility] Comment on above: Performed By: #### L [id number] #### [facility] ([facility]ER) [address] [place] [address] PLATELETS (10*3/UL) IN BLOOD AUTOMATED COUNT 216 10*3/uL Normal 150-400 [facility] Comment on above: Performed By: #### L [id number] #### [facility] ([facility]) [address] [place] [address] RBC (Bld) [#/Vol] 4.31 10*6/uL Normal 3.80-5.00 [facility] Comment on above: Performed By: #### L [id number] #### [facility] ([facility]ER) [address] [place] [address] WBC (Bld) [#/Vol] 8.85 10*3/uL Normal 4.00-10.60 [facility] Comment on above: Performed By: #### L [id number] #### [facility] (BEAKER) [address] [place] [address] IRON AND TIBCon 06-20-2023 IRON (UG/DL) IN SER/PLAS 20 ug/dL Low 50-212 [facility] Comment on above: Performed By: #### L [id number] #### [facility] ([facility]ER) [address] [place] [address] IRON BINDING CAPACITY (UG/DL) IN SER/PLAS 386 ug/dL Normal 250-450 [facility] Comment on above: Performed By: #### L [id number] #### [facility] ([facility]) [address] [place] [address] IRON BINDING CAPACITY.UNSATURATE D (UG/DL) IN SER/PLAS 366.0 ug/dL High 155.0-355.0 [facility] Comment on above: Performed By: #### L [id number] #### [facility] ([facility]) [address] [place] [address] IRON SATURATION (%) IN SER/PLAS 5 % Low 20-50 [facility] Comment on above: Performed By: #### L [id number] #### [facility] ([facility]) [address] [place] [address] VITAMIN B1on 06-20-2023 VITAMIN B1, PLASMA 21 nmol/L High 4-15 [facility] Comment on above: Result Comment: INTE RPRETIVE DATA: Vitamin B1, Plasma Thiamine (vitamin B1) is reported. However, thiamine diphosphate (TDP), the biologically active form of thiamine, is not found in measurable concentrations in plasma, and is best determined in whole blood specimens. Plasma thiamine concentration reflects recent intake rather than body stores. This test was developed and its performance characteristics determined by [facility]. It has not been cleared or approved by the [place] Food and Drug Administration. This test was performed in a CLIA certified laboratory and is intended for clinical purposes. Performed By: [facility] [address] [place] [id number] Senior Quality Methods Specialist: Rocky Claros MD, PhD CLIA Number: [id number] Performed By: #### L [id number] #### [facility] ([facility]) [address] [place] [address] VITAMIN B6on 06-20-2023 VITAMIN B6 32.3 nmol/L Normal 20.0-125.0 [facility] Comment on above: Result Comment: INTE RPRETIVE INFORMATION: Vitamin B6 (Pyridoxal 5-Phosphate) Pyridoxal 5'-phosphate measured in a specimen collected following an 8-hour or overnight fast accurately indicates vitamin B6 nutritional status. Non-fasting specimen concentration reflects recent vitamin intake. This test was developed and its performance characteristics determined by [facility]. It has not been cleared or approved by the [place] Food and Drug Administration. This test was performed in a CLIA certified laboratory and is intended for clinical purposes. Performed By: [facility] [address] [place] [address] Senior Quality Methods Specialist: Rocky Claros MD, PhD CLIA Number: [id number] Performed By: #### L [id number] ####[facility] (BEAKER)[address] [place] [address] 30on 06-19-2023 30 The patient is Moderately [...] optimal renal function maintained Outcome: Progressing Normal [facility] 30 The patient is Moderately Unstable [...] including repeat lab results as appropriate Normal [facility] 30 Daily Case Managemen t Update Multidisciplinary rounds have been completed. Barriers to Discharge: Patient transferred from [facility] with dizziness, facial numbness and SOB. Cardiology [...] Consultation Consultation and Management 06/19/23 1042 Normal [facility] BASIC METABOLIC PANELon - Anion gap [Moles/Vol] 11 mmol/L Normal - [facility] Comment on above: Performed By: #### L [id number] #### [facility] ([facility]) [address] [place] [address] Calcium [Mass/Vol] 8.9 mg/dL Normal 8.6-10.3 [facility] Comment on above: Performed By: #### L [id number] #### [facility] ([facility]) [address] [place] [address] Chloride [Moles/Vol] 106 mmol/L Normal 98-107 [facility] Comment on above: Performed By: #### L [id number] #### [facility] ([facility]) [address] [place] [address] CO2 [Moles/Vol] 23 mmol/L Normal 21- [facility] Comment on above: Performed By: #### L [id number] #### [facility] ([facility]) [address] [place] [address] Creatinine [Mass/Vol] 1.06 mg/dL Normal 0.60-1.20 [facility] Comment on above: Performed By: #### L [id number] #### [facility] ([facility]) [address] [place] [address] GLOMERULAR FILTRATION RATE ML/MIN/1.73 SQ M.PREDICTED 57.2 mL/min/1.73m*2 Low >60.0 [facility] Comment on above: Result Comment: [facility]???s estimated glomerular filtration rate (eGFR) will [...] individuals. Performed By: #### L [id number] #### [facility] ([facility]) [address] [place] [address] Glucose [Mass/Vol] 132 mg/dL High 70-100 [facility] Comment on above: Performed By: #### L [id number] #### [facility] ([facility]) [address] [place] [address] Potassium [Moles/Vol] 4.1 mmol/L Normal 3.5-5.1 [facility] Comment on above: Performed By: #### L [id number] #### [facility] ([facility]) [address] [place] [address] Sodium [Moles/Vol] 136 mmol/L Normal 136-145 [facility] Comment on above: Performed By: #### L [id number] #### [facility] ([facility]) [address] [place] [address] Urea nitrogen [Mass/Vol] 26 mg/dL High 7-25 [facility] Comment on above: Performed By: #### L [id number] #### [facility] ([facility]) [address] [place] [address] UREA NITROGEN/CREATININE (MASS RATIO) IN SER/PLAS 24.5 Normal [facility] Comment on above: Performed By: #### L [id number] #### [facility] ([facility]) [address] [place] [address] CBCon 06-19-2023 Erythrocyte distribution width (RBC) [Ratio] 12.8 % Normal 11.5-15.0 [facility] Comment on above: Performed By: #### L [id number] ####[facility] ([facility])[address] [place] [address] ERYTHROCYTE MEAN CORPUSCULAR HEMOGLOBIN CONCENTRATION (G/DL) BY AUTOMATED 33.3 g/dL Normal 32.0-35.0 [facility] Comment on above: Performed By: #### L [id number] ####[facility] ([facility])[address] [place] [address] Hematocrit (Bld) [Volume fraction] 37.5 % Normal 36.0-48.0 [facility] Comment on above: Performed By: #### L [id number] ####[facility] ([facility])[address] [place] [address] Hemoglobin (Bld) [Mass/Vol] 12.5 g/dL Normal 12.0-15.0 [facility] Comment on above: Performed By: #### L [id number] ####[facility] ([facility])[address] [place] [address] MCH (RBC) [Entitic mass] 29.5 pg Normal 27.0-33.0 [facility] Comment on above: Performed By: #### L [id number] ####[facility] (BEAKER)[address] [place] [address] MCV (RBC) [Entitic vol] 88.4 fL Normal 82.0-98.0 [facility] Comment on above: Performed By: #### L [id number] ####[facility] ([facility])[address] [place] [address] PLATELETS (10*3/UL) IN BLOOD AUTOMATED COUNT 233 10*3/uL Normal 150-400 [facility] Comment on above: Performed By: #### L [id number] ####[facility] ([facility])[address] [place] [address] RBC (Bld) [#/Vol] 4.24 10*6/uL Normal 3.80-5.00 [facility] Comment on above: Performed By: #### L [id number] ####[facility] ([facility])[address] [place] [address] WBC (Bld) [#/Vol] 8.35 10*3/uL Normal 4.00-10.60 [facility] Comment on above: Performed By: #### L [id number] ####[facility] ([facility])[address] [place] [address] CONSULTon 06-19-2023 CONSULT --- Attestation signed by [...] her daughter regarding her presentation. EKGs from [facility] and telemetry here show episodes of 2-1 [...] accident/transient ischemic attack. Vijay Sandoval MD, MPH, [facility], [facility], [facility] Interventional Cardiology Pager Email: [email or web address] Cardiology Consult Note Reason for Consult: Bradycardia HPI: Luma Davey is a 67 y.o. female with past medical history of known LBBB, MVP with mild MR, palpitations on propanlol, who presents as a transfer from [facility] for symptomatic bradycardia. Patient states she chronically [...] Value Ventricular Rate 85 Atrial Rate 85 FL Interval 156 QRS DURATION 132 QT Interval 480 QTC CALCULATION(BAZETT) 571 P Vinton 68 R-Vinton 1 T Wave Vinton 34 Impression Normal sinus rhythm Left bundle [...] of BP (more content not included)... Normal [facility] FOLATEon 06-19-2023 FOLATE (NG/ML) IN SER/PLAS 27.00 ng/mL Normal 6.6-1000 [facility] Comment on above: Performed By: #### L [id number] #### [facility] ([facility]) [address] [facility] [place] [place] [address] FOLATE (NG/ML) IN SER/PLAS 29.00 ng/mL Normal 6.6-1000 [facility] Comment on above: Performed By: #### L [id number] ####[facility] ([facility])[address] [place] [address] Letter (Out)on 06-19-2023 Letter (Out) [id number] Petar,Luma 1955 F Date Provider Department Center 06/19/2023 [id number], GENERIC PRO*INIT None No family history on file Normal [facility] MAGNESIUMon 06-19-2023 Magnesium [Mass/Vol] 1.7 mg/dL Low 1.9-2.7 [facility] Comment on above: Performed By: #### L [id number] #### [facility] ([facility]) [address] [place] [address] METHYLMALONIC ACID, SERUMon 06-19-2023 METHYLMALONIC ACID, S 0.18 umol/L Normal 0.00-0.40 [facility] Comment on above: Result Comment: INTE RPRETIVE INFORMATION: MMA Serum/Plasma, Vitamin B12 Status This test was developed and its performance characteristics determined by [facility]. It has not been cleared or approved by the [place] Food and Drug Administration. This test was performed in a CLIA certified laboratory and is intended for clinical purposes. Performed By: [facility] [address] [place], [place] [id number] Senior Quality Methods Specialist: Rocky Claros MD, PhD CLIA Number: [id number] Performed By: #### L [id number] #### [facility] ([facility]) [address] [place] [address] TSH3 REFLEX TO FT4on 12-19-2 023 THYROTROPIN (MIU/L) IN SER/PLAS BY DETECTION LIMIT <= 0.05 MIU/L 2.78 mIU/L Normal 0.34-5.60 [facility] Comment on above: Performed By: #### L AB125 #### [facility] ([facility]) [address] [place] [address] VITAMIN B1on 06-19-2023 VITAMIN B1, PLASMA 23 nmol/L High 4-15 [facility] Comment on above: Result Comment: INTE RPRETIVE DATA: Vitamin B1, Plasma Thiamine (vitamin B1) is reported. However, thiamine diphosphate (TDP), the biologically active form of thiamine, is not found in measurable concentrations in plasma, and is best determined in whole blood specimens. Plasma thiamine concentration reflects recent intake rather than body stores. This test was developed and its performance characteristics determined by [facility]. It has not been cleared or approved by the [place] Food and Drug Administration. This test was performed in a CLIA certified laboratory and is intended for clinical purposes. Performed By: [facility] [address] [place], [place] [id number] Senior Quality Methods Specialist: Rocky Claros MD, PhD CLIA Number: [id number] Performed By: #### L AB125 #### [facility] ([facility]) [address] [place] [address] VITAMIN B12on 06-19-2023 Cobalamin (Vitamin B12) [Mass/Vol] 437 pg/mL Normal 180-914 [facility] Comment on above: Result Comment: REFE RENCE RANGES: 180-914 pg/mL Normal 145-179 pg/mL Indeterminate <145 pg/mL Deficient Performed By: #### L AB125 #### [facility] ([facility]) [address] [place] [address] VITAMIN B6on 06-19-2023 VITAMIN B6 66.5 nmol/L Normal 20.0-125.0 [facility] Comment on above: Result Comment: INTE RPRETIVE INFORMATION: Vitamin B6 (Pyridoxal 5-Phosphate) Pyridoxal 5'-phosphate measured in a specimen collected following an 8-hour or overnight fast accurately indicates vitamin B6 nutritional status. Non-fasting specimen concentration reflects recent vitamin intake. This test was developed and its performance characteristics determined by [facility]. It has not been cleared or approved by the US Food and Drug Administration. This test was performed in a CLIA certified laboratory and is intended for clinical purposes. Performed By: [facility] [address] [place] [id number] Senior Quality Methods Specialist: Rocky Claros MD, PhD CLIA Number: [id number] Performed By: #### L AB125 #### [facility] LABORATORY (BEAKER) [address] [place] [id number] CBC AUTO DIFFon 01-12-2022 BASO # 0.0 103/ul Normal 0.0-0.1 [facility] Comment on above: Performed By: #### C BC #### [facility] [address] [place] [address] Dr. Anurag Solano Basophils/100 WBC (Bld) 0.4 % Normal 0.2-2.0 [facility] Comment on above: Performed By: #### C BC #### [facility] [address] [place] [address] Dr. Anurag Solano EO # 0.2 103/ul Normal 0.0-0.7 [facility] Comment on above: Performed By: #### C BC #### [facility] [address] [place] [address] Dr. Anurag Solano Eosinophils/100 WBC (Bld) 2.9 % Normal 0.9-7.0 [facility] Comment on above: Performed By: #### C BC #### [facility] [address] [place] [address] Dr. Anurag Solano Erythrocyte distribution width (RBC) [Ratio] 12.4 % Normal 11.0-15.0 [facility] Comment on above: Performed By: #### C BC #### [facility] [address] [place] [address] Dr. Anurag Solano Hematocrit (Bld) [Volume fraction] 41.0 % Normal 36.0-48.0 [facility] Comment on above: Performed By: #### C BC #### [facility] [address] [place] [address] Dr. Anurag Solano Hemoglobin (Bld) [Mass/Vol] 13.3 g/dL Normal 12.0-16.0 [facility] Comment on above: Performed By: #### C BC #### [facility] [address] [place] [address] Dr. Anurag Solano IG # 0.02 10e3/ul Normal 0.00-0.03 [facility] Comment on above: Performed By: #### C BC #### [facility] [address] [place] [address] Dr. Anurag Solano IG % 0.3 % Normal 0.0-0.5 [facility] Comment on above: Performed By: #### C BC #### [facility] [address] [place] [address] Dr. Anurag Solano LYMPH # 2.2 103/ul Normal 1.2-3.8 [facility] Comment on above: Performed By: #### C BC #### [facility] [address] [place] [address] Dr. Anurag Solano Lymphocytes/100 WBC (Bld) 30.1 % Normal 20.5-60.0 [facility] Comment on above: Performed By: #### C BC #### [facility] [address] [place] [address] Dr. Anurag Solano MANUAL DIFF REQ NO Normal [facility] Comment on above: Performed By: #### C BC #### [facility] [address] [place] [address] Dr. Anurag Solaon MCH (RBC) [Entitic mass] 29.8 pg Normal 26.7-34.0 [facility] Comment on above: Performed By: #### C BC #### [facility] [address] [place] [address] Dr. Anurag Solano MCHC (RBC) [Mass/Vol] 32.4 g/dL Normal 29.9-35.2 [facility] Comment on above: Performed By: #### C BC #### [facility] [address] [place] [address] Dr. Anurag Solano MCV (RBC) [Entitic vol] 91.7 fL Normal 81.0-99.0 [facility] Comment on above: Performed By: #### C BC #### [facility] [address] [address] [address] Anurag Solano MONO # 0.6 103/ul Normal 0.3-0.8 [facility] Comment on above: Performed By: #### C BC #### [facility] [address] [address] [address] Anurag Solano Monocytes/100 WBC (Bld) 7.7 % Normal 1.7-12.0 [facility] Comment on above: Performed By: #### C BC #### [facility] [address] [place] [address] Dr. Anurag Solano NEUT # 4.3 103/ul Normal 1.4-6.5 [facility] Comment on above: Performed By: #### C BC #### [facility] [address] [place] [address] Dr. Anurag Solano Neutrophils/100 WBC (Bld) 58.6 % Normal 43.0-75.0 [facility] Comment on above: Performed By: #### C BC #### [facility] [address] [place] [address] Dr. Anurag Solano Platelet mean volume (Bld) [Entitic vol] 9.4 fL Critically low 9.5-13.5 [facility] Comment on above: Performed By: #### C BC #### [facility] [address] [place] [address] Dr. Anurag Solano PLT 282 103/ul Normal 150-450 [facility] Comment on above: Performed By: #### C BC #### [facility] [address] [place] [address] Dr. Anurag Solano RBC 4.47 106/ul Normal 4.20-5.40 [facility] Comment on above: Performed By: #### C BC #### [facility] [address] [place] [address] Dr. Anurag Solano WBC 7.3 103/ul Normal 4.0-11.0 [facility] Comment on above: Performed By: #### C BC #### [facility] [address] [address] [address] Anurag Solano FREE T4on 01-12-2022 Free T4 [Mass/Vol] 0.89 ng/dL Normal 0.76-1.46 [facility] Comment on above: Performed By: #### F T4 #### [facility] [address] [address] [address] Anurag Solano LIPID PROFILEon 01-12-2022 CHOL-HDL RATIO NORM SEE BELOW Normal [facility] Comment on above: Result Comment: 3.3 - 4.4 LOW RISK 4.4 - 7.1 AVERAGE RISK 7.1 - 11.0 MODERATE RISK >11.0 HIGH RISK Performed By: #### C MP, TSH, LIPID #### [facility] [address] [place] [address] Dr. Anurag Solano Cholesterol [Mass/Vol] 213 mg/dL Critically high <=200 [facility] Comment on above: Performed By: #### C MP, TSH, LIPID #### [facility] [address] [place] [address] Dr. Anurag Solano Cholesterol in HDL [Mass/Vol] 44 mg/dL Normal 40-60 [facility] Comment on above: Performed By: #### C MP, TSH, LIPID #### [facility] [address] [place] [address] Dr. Anurag Solano Cholesterol in LDL [Mass/Vol] 143.2 mg/dL Normal [facility] Comment on above: Performed By: #### C MP, TSH, LIPID #### [facility] [address] [place] [address] Dr. Anurag Solano Cholesterol.total/C holesterol in HDL [Mass ratio] 4.8 {ratio} Normal [facility] Comment on above: Performed By: #### C MP, TSH, LIPID #### [facility] [address] [place] [address] Dr. Anurag Solano HDL NORMAL > or = 60 mg/dl - LO W CARDIOVASCULAR RISK <40 mg/dl - HIGH CARDIOVASCULAR RISK Normal [facility] Comment on above: Performed By: #### C MP, TSH, LIPID #### [facility] [address] [address] [address] Anurag Solano LDL CALC NORMAL SEE BELOW Normal [facility] Comment on above: Result Comment: <100 mg/dl OPTIMAL 100 - 129 mg/dl NEAR OR ABOVE OPTIMAL 130 - 159 mg/dl BORDERLINE HIGH 160 - 189 mg/dl HIGH >190 mg/dl VERY HIGH Performed By: #### C MP, TSH, LIPID #### [facility] [address] [address] [address] Anurag Solnao Triglyceride [Mass/Vol] 129 mg/dL Normal <=150 [facility] Comment on above: Performed By: #### C MP, TSH, LIPID #### [facility] [address] [place] [address] Dr. Anurag Solano VLDL CALC 25.8 mg/dL Normal [facility] Comment on above: Performed By: #### C MP, TSH, LIPID #### [facility] [address] [place] [address] Dr. Anurag Solano PROF 14(COMP METB)on 022 Albumin [Mass/Vol] 3.6 g/dL Normal 3.4-5.0 [facility] Comment on above: Performed By: #### C MP, TSH, LIPID #### [facility] [address] [place] [address] Dr. Anurag Solano Albumin/Globulin [Mass ratio] 1.1 {ratio} Normal [facility] Comment on above: Performed By: #### C MP, TSH, LIPID #### [facility] [address] [place] [address] Dr. Anurag Solano ALP [Catalytic activity/Vol] 107 U/L Normal 46-116 [facility] Comment on above: Performed By: #### C MP, TSH, LIPID #### [facility] [address] [place] [address] Dr. Anurag Solano ALT [Catalytic activity/Vol] 19 U/L Normal 14-59 [facility] Comment on above: Performed By: #### C MP, TSH, LIPID #### [facility] [address] [place] [address] Dr. Anurag Solano Anion gap [Moles/Vol] 8.3 mmol/L Normal [facility] Comment on above: Performed By: #### C MP, TSH, LIPID #### [facility] [address] [place] [address] Dr. Anurag Solano AST [Catalytic activity/Vol] 17 U/L Normal 15-37 [facility] Comment on above: Performed By: #### C MP, TSH, LIPID #### [facility] [address] [place] [address] Dr. Anurag Solano Bilirubin [Mass/Vol] 0.3 mg/dL Normal 0.2-1.0 [facility] Comment on above: Performed By: #### C MP, TSH, LIPID #### [facility] [address] [place] [address] Dr. Anurag Solano Calcium [Mass/Vol] 8.7 mg/dL Normal 8.5-10.1 [facility] Comment on above: Performed By: #### C MP, TSH, LIPID #### [facility] [address] [place] [address] Dr. Anurag Solano Chloride [Moles/Vol] 106 mmol/L Normal 98-107 [facility] Comment on above: Performed By: #### C MP, TSH, LIPID #### [facility] [address] [place] [address] Dr. Anurag Solano CO2 [Moles/Vol] 30.3 mmol/L Normal 21.0-32.0 [facility] Comment on above: Performed By: #### C MP, TSH, LIPID #### [facility] [address] [place] [address] Dr. Anurag Solano Creatinine [Mass/Vol] 1.16 mg/dL Critically high 0.55-1.02 [facility] Comment on above: Performed By: #### C MP, TSH, LIPID #### [facility] [address] [place] [address] Dr. Anurag Solano EGFR-AF SWEDISH 56 mL/min/1.73m2 Critically low >=60 [facility] Comment on above: Performed By: #### C MP, TSH, LIPID #### [facility] [address] [address] [address] Anurag Solano EGFR-NON AF SWEDISH 47 mL/min/1.73m2 Critically low >=60 [facility] Comment on above: Performed By: #### C MP, TSH, LIPID #### [facility] [address] [address] [address] Anurag Solano Globulin (S) [Mass/Vol] 3.3 g/dL Normal [facility] Comment on above: Performed By: #### C MP, TSH, LIPID #### [facility] [address] [address] [address] Anurag Solano Glucose [Mass/Vol] 105 mg/dL Normal 74-106 [facility] Comment on above: Performed By: #### C MP, TSH, LIPID #### [facility] [address] [address] [address] Anurag Solano Potassium [Moles/Vol] 4.6 mmol/L Normal 3.5-5.1 [facility] Comment on above: Performed By: #### C MP, TSH, LIPID #### [facility] [address] [address] [address] Anurag Solano Protein [Mass/Vol] 6.9 g/dL Normal 6.4-8.2 [facility] Comment on above: Performed By: #### C MP, TSH, LIPID #### [facility] [address] [address] [address] Anurag Solano Sodium [Moles/Vol] 140 mmol/L Normal 136-145 [facility] Comment on above: Performed By: #### C MP, TSH, LIPID #### [facility] [address] [address] [address] Anurag Solano Urea nitrogen [Mass/Vol] 21.0 mg/dL Critically high 7.0-18.0 [facility] Comment on above: Performed By: #### C MP, TSH, LIPID #### [facility] [address] [address] [address] Anurag Solano Urea nitrogen/Creatinine [Mass ratio] 18.1 mg/mg Normal [facility] Comment on above: Performed By: #### C MP, TSH, LIPID #### [facility] [address] [place], [place] [address] Dr. Anurag Solano TSHon 01-12-2022 TSH 4.450 uIU/mL Critically high 0.358-3.740 [facility] Comment on above: Performed By: #### C MP, TSH, LIPID #### [facility] [address] [place], [place] [address] Dr. Anurag Solano Basic Metabolic Panelon 08-31 Anion gap 8 mmol/L Normal 7-13 [facility] Calcium 10.0 mg/dL Normal 8.6-10.2 [facility] Chloride 103 mmol/L Normal 98-107 [facility] CO2 30 mmol/L Critically high 22-29 [facility] Creatinine 0.88 mg/dL Normal 0.50-0.90 [facility] eGFR (black) mL/min/{1.73_m2} Normal >60 [facility] Comment on above: Result Comment: >60 mL/min/1.73m2 EGFR, calc. for ages 18 and older using theMDRD formula (not corrected for weight), is valid for stablerenal function. eGFR (MDRD) mL/min/{1.73_m2} Normal >60 [facility] Comment on above: Result Comment: >60 mL/min/1.73m2 EGFR, calc. for ages 18 and older using theMDRD formula (not corrected for weight), is valid for stablerenal function. Glucose mass conc 99 mg/dL Normal 74-109 [facility] Potassium molar conc 4.9 mmol/L Normal 3.5-5.1 [facility] Sodium 141 mmol/L Normal 132-144 [facility] Urea nitrogen 22 mg/dL Normal 8-23 [facility] CBC With Platelet No Differe ntialon 09-24-2017 Erythrocyte distribution width Auto Ratio (RBC) 13.2 % Normal 11.5-14.5 [facility] Erythrocytes (RBC) 4.37 10*6/uL Normal 4.20-5.40 [facility] Hematocrit (HCT) 39.9 % Normal 37.0-47.0 [facility] Hemoglobin mass conc (Bld) 13.4 g/dL Normal 12.0-16.0 [facility] MCH 30.6 pg Normal 27.0-31.3 [facility] MCHC mass conc (RBC) 33.5 % Normal 33.0-37.0 [facility] MCV 91.4 fL Normal 82.0-100.0 [facility] Platelets 256 10*3/uL Normal 130-400 [facility] WBC (Leukocytes) 7.3 10*3/uL Normal 4.8-10.8 [facility] Extra Tube, Blood Bankon Bilirubin (total) PATIENT: PETAR VILLALOBOS LOC: [facility] BILL# : [id number] : 1955 SEX: FORDERED BY: SHAKIR FERMIN ORDERED : 09/24/2017 14:13 COLLECTED: 09/24/2017 13:52ORDER : [id number] RECEIVED : 09/24/2017 13:52 TEST NAME RESULT UNITS RANGES ABN FL STExtra Tube, Blood Bank ADEEL F --------- Normal [facility] RBC LRon 09-24-2017 Erythrocytes (RBC) PATIENT: PETAR VILLALOBOS LOC: [facility] BILL# : [id number] : 1955 SEX: FORDERED BY: SHAKIR FERMIN ORDERED : 09/26/2017 13:35 COLLECTED: 09/24/2017 13:52ORDER : [id number] RECEIVED : 09/24/2017 13:52 TEST NAME RESULT UNITS RANGES ABN FL STRBC LR [id number] RBC LR W0 F --------- Normal [facility] Type and Screen Capture 3 sc rn cellon 09-24-2017 Bilirubin (total) PATIENT: PETAR VILLALOBOS LOC: [facility] BILL# : [id number] : 1955 SEX: FORDERED BY: SHAKIR FERMIN ORDERED : 09/24/2017 11:58 COLLECTED: 09/24/2017 13:52ORDER : [id number] RECEIVED : 09/24/2017 13:52 TEST NAME RESULT UNITS RANGES ABN FL STABORH Capture O POS FAntibody 3 Cell Scrn Captu NEG F --------- Normal [facility] Culture, Urineon 08-10-2017 Culture, Urine ORDERED BY: LINDA SCHILLING: Urine Clean Catch COLLECTED: 08/10/17 14:46ANTIBIOTICS AT ADEEL.: RECEIVED : 08/10/17 15:13Culture, Urine FINAL 08/12/17 07:48 No growth 24 hours Normal [facility] Urinalysis, reflex to micros copicon 08-10-2017 Bilirubin Ql (U) Negative Normal Negative [facility] Urine, clarity CLOUDY Abnormal Clear [facility] [place] Urine, color Yellow Normal [facility] Urine, glucose presence Negative Normal Negative [facility] Urine, hemoglobin presence LARGE Abnormal Negative [facility] Urine, ketones presence Negative Normal Negative [facility] Urine, leukocyte esterase presence Negative Normal Negative [facility] Urine, nitrite presence Negative Normal Negative [facility] Urine, pH 5.0 [pH] Normal 5.0-9.0 [facility] Urine, protein presence Negative Normal Negative [facility] Urine, specific gravity 1.031 Normal 1.005-1.03 [facility] Urine, urobilinogen 0.2 {Jigar'U}/dL Normal < 2.0 [facility] Urine Microscopicon 08-10-19 18 Urine, bacteria in sediment Many Normal [facility] Urine, epithelial cells presence in sediment 3-5 Normal [facility] Urine, erythrocytes 10-20 Abnormal 0-2 [facility] Urine, leukocytes 0-2 Normal 0-5 [facility] PELVIS 1 OR 2 Son 03-16-20 17 PELVIS 1 [facility] 2 [facility] [address] [place] [address] =====Patient Name: LUMA DAVEY : 1955Sex: FAge: Race: WhiteMRN: [id number]. Location: 84Patient Status: Date: 03/16/2017 11:00:00 AMCompleted Date: 03/16/2017 11:26 AMRequesting Provider: MAXIME OSPINA Attending Provider: Report Copy To: Signs & Symptoms: S32.9XXD Fx unsp parts of lumbosacr spin \EANDE\ pelv, 7thD [id number]: AthenaComments: , , Views (X-RAY, PELVIS): Radiologic Protocol , , , Ordering Edward KAN-C , Exam: PELVIS 1 OR 2 VWSAccession #: [id number] PELVIS 1 OR 2 VWS 03/16/2017 11:26 [...] before Electronically signed by:Addy Hernandez. Transcribed by: [email or web address], User Resident: Electronically Signed by: ADDY HERNANDEZ @ 03/16/2017 02:12 PM Normal [facility] Comment on above: Order Comment: , , V iews (X-RAY, PELVIS): Radiologic Protocol , , , Ordering Edward KAN-C , PELVIS 1 OR 2 VWSon 02-24-20 17 PELVIS 1 OR 2 VWS [facility] [address] [place] [address] =====Patient Name: LUMA DAVEY : 1955Sex: FAge: Race: WhiteMRN: [id number]. 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 Patient complains of pain in pelvis and in her tailbone when sitting. History of pelvis surgery on 10/24/2016. QUESTION FOR THE RADIOLOGIST: , , Views (X-RAY, PELVIS): AP , , , Ordering Edward OSPINA PA-C , PROTOCOL: AP(PA) view was obtained. COMPARISON: January 11, 2017 FINDINGS: Soft tissues:Unchanged Bones:Unchanged Joints:Unchanged IMPRESSION: Stable plate fixation across symphysis pubis with residual widening of approximately 15 mm and unchanged sclerosis along the SI joints Electronically signed by:Addy Hernandez. Transcribed by: [email or web address], User Resident: Electronically Signed by: ADDY HERNANDEZ @ 02/23/2017 01:09 PM Normal [facility] Comment on above: Order Comment: , , V iews (X-RAY, PELVIS): AP , , , Ordering Edward OSPINA PA-C , PELVIS 1 OR 2 Son 01-12-20 17 PELVIS 1 [facility] [address] [place] [id number] =====Patient Name: LUMA DAVEY : 1955Sex: FAge: Race: WhiteMRN: [id number]. 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 Slight widening of the symphysis pubis is unchanged from the prior study. The remainder of the bony ring of the pelvis is intact. 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 Electronically signed by:Aaron Cain. Transcribed by: [email or web address], User Resident: Electronically Signed by: AARON CAIN @ 01/11/2017 03:00 PM Normal [facility] Comment on above: Order Comment: , , V iews (X-RAY, PELVIS): Radiologic Protocol , , , Ordering Edward OSPINA PA-C , Vital Signs Date Time Vital Sign Value Performing Clinician Nilton singh 08-02-2023 09:08-0500 Body height 165.1 cm Woo Killian MD Work Phone: [employer] 08-02-2023 09:08-0500 Body mass index (BMI) [Ratio] 27.96 kg/m2 Woo Killian MD Work Phone: [employer] 08-02-2023 09:08-0500 Body weight 76.2 kg Woo Killian MD Work Phone: [facility] 08-02-2023 09:08-0500 Diastolic blood pressure 80 mm[Hg] Woo Killian MD Work Phone: [facility] 08-02-2023 09:08-0500 Heart rate 72 /min Woo Killian MD Work Phone: [facility] 08-02-2023 09:08-0500 Respiratory rate 16 /min Woo Killian MD Work Phone: [facility] 08-02-2023 09:08-0500 Systolic blood pressure 120 mm[Hg] Woo Killian MD Work Phone: [facility] 07-05-2023 13:41-0500 Body height 165.1 cm Woo Killian MD Work Phone: [facility] 07-05-2023 13:41-0500 Body mass index (BMI) [Ratio] 28.87 kg/m2 Woo Killian MD Work Phone: [facility] 07-05-2023 13:41-0500 Body weight 78.7 kg Woo Killian MD Work Phone: [facility] 07-05-2023 13:41-0500 Diastolic blood pressure 80 mm[Hg] Woo Killian MD Work Phone: [facility] 07-05-2023 13:41-0500 Heart rate 88 /min Woo Killian MD Work Phone: [facility] 07-05-2023 13:41-0500 Respiratory rate 16 /min Woo Killian MD Work Phone: [facility] 07-05-2023 13:41-0500 Systolic blood pressure 146 mm[Hg] Woo Killian MD Work Phone: [facility] Encounters Encounter Date Encounter Type Care Provider Facility Start: 12-31-2023 End: 12-31-2023 [facility] Start: 12-25-2023 End: 12-25-2023 ambulatory [facility] Start: 12-25-2023 Encounter for genera l adult medical examination without abnormal findings [facility] Start: 10-05-2023 End: 10-05-2023 ambulatory [facility] CH[facility]ST[facility] Facility[facility] Start: 09-24-2023 End: 09-25-2023 ambulatory [facility] Facility:[facility] Start: 09-04-2023 Orders Only Woo palomo MD Work Phone: [facility] Start: 08-30-2023 End: 08-31-2023 ambulatory [facility] Start: 08-30-2023 End: 08-30-2023 ambulatory [facility] Start: 08-07-2023 Refill [facility] Start: 08-02-2023 End: 08-02-2023 Office outpatient visit 25 minutes Woo Killian MD Work Phone: [facility] Comment on above: Transient ischemic a ttack (TIA) (Primary Dx); Symptomatic bradycardia; LBBB (left bundle branch block); Facial weakness Start: 08-02-2023 End: 08-02-2023 ambulatory [facility] Start: 07-24-2023 End: 07-24-2023 ambulatory [facility] Start: 07-05-2023 End: 07-05-2023 ambulatory [facility] Start: 07-05-2023 End: 07-05-2023 Transitional care manage srvc 14 day discharge Woo Killian MD Work Phone: [facility] Comment on above: Symptomatic bradycar frances (Primary Dx); MVP (mitral valve prolapse); LBBB (left bundle branch block) Start: 07-04-2023 ambulatory [facility] Start: 06-22-2023 Evaluation and manag ement of inpatient [facility] Start: 06-21-2023 Evaluation and manag ement of inpatient SOM HAMM [facility] Start: 06-19-2023 Evaluation and manag ement of inpatient SAKINA RIOS [facility] Start: 06-19-2023 End: 06-22-2023 Evaluation and management of inpatient KYLEE MCLEAN [facility] Start: 01-12-2022 End: 01-13-[address] WOO KILLIAN Facility: Start: 09-29-2020 End: 09-03-2020 Patient encounter procedure Sabrina Caceres Work Phone: [facility] Work Phone: Start: 09-03-2020 End: 09-03-2020 Patient encounter procedure Ruthie Smiley Work Phone: [facility] Work Phone: Start: 09-27-2017 End: 09-27-2017 Ambulatory [facility] Start: 09-24-2017 End: 09-29-2017 Ambulatory [facility] Start: 05-02-2017 End: 06-01-2017 Ambulatory MAXIME OSPINA Facility:[facility] Start: 04-01-2017 End: 05-02-2017 Ambulatory MAXIME OSPINA Facility:[facility] Start: 03-16-2017 End: 03-17-2017 Ambulatory MAXIME OSPINA Facility:[facility] Start: 03-02-2017 End: 04-01-2017 Ambulatory MAXIME OSPINA Facility:[facility] Start: 02-23-2017 End: 02-24-2017 Ambulatory MAXIME OSPINA Facility:[facility] Start: 01-30-2017 End: 03-02-2017 Ambulatory MAXIME OSPINA Facility:[facility] Start: 01-11-2017 End: 01-12-2017 Ambulatory MAXIME OSPINA Facility:[facility] Procedures Date Procedure Procedure Detail Performing Clinician Start: 08-02-2023 Follow-up visit Follow-up WOO KILLIAN Start: 08-02-2023 Adult depression scr eening assessment Woo Killian MD Work Phone: Start: 07-05-2023 Adult depression scr eening assessment Woo Killian MD Work Phone: Start: 09-29-2020 Imm. administration COVID19 Moderna dose 2 Sabrina Caceres Work Phone: Start: 09-29-2020 SARS-CoV-2 vaccine, 0.5ml Moderna Sabrina Caceres Work Phone: Start: 09-03-2020 Imm. administration COVID19 Moderna dose 1 Ruthie Smiley Work Phone: Start: 09-03-2020 SARS-CoV-2 vaccine, 0.5ml Moderna Ruthie Genyng Work Phone: Start: 09-27-2017 INCENTIVE SPIROMETRY RT [...] Start: 09-27-2017 INITIATE OXYGEN THER APY PROTOCOL JENY DBAMEK Start: 09-27-2017 NOTIFY PHYSICIAN (SPECIFY) JEYN HORTAK Start: 09-27-2017 PULSE OXIMETRY SPOT CHECK JENY OHRTAK Start: 09-27-2017 VITAL SIGNS JENY HORTA K Start: 09-24-2017 BASIC METABOLIC PANEL T [place] [facility] Start: 09-24-2017 CBC JENY HORTA K Start: 09-24-2017 EXTRA TUBE JENY HORTA K Start: 09-24-2017 PREPARE RBC (CROSSMATCH) JENY HORTAK Start: 09-24-2017 TYPE AND SCREEN TARPATSY BROWN Start: 09-24-2017 EKG 12-LEAD JENY Munoz Start: 08-01-2017 Mammography Woo torres MD Work Phone: Plan of Treatment Date Care Activity Detail Author Start: 03-31-2029 DTaP,Tdap and Td Vaccines (3 - Td or Tdap) DTaP,Tdap and Td Vaccines (3 - Td or Tdap) [facility] Start: 08-29-2024 Adult BMI Screening Adult BMI Screen ing [facility] Start: 08-29-2024 Tobacco Screening Tobacco Screening [facility] Start: 08-02-2024 Adult BMI Screening Adult BMI Screen ing [facility] Start: 08-02-2024 Depression Screening Depression Scre ening [facility] Start: 08-02-2024 Fall Risk Screening Fall Risk Screen ing [facility] Start: 08-02-2024 Tobacco Screening Tobacco Screening [facility] Start: 07-05-2024 Adult BMI Screening Adult BMI Screen ing [facility] Start: 07-05-2024 Depression Screening Depression Scre ening [facility] Start: 07-05-2024 Fall Risk Screening Fall Risk Screen ing [facility] Start: 07-05-2024 Tobacco Screening Tobacco Screening [facility] Start: 12-25-2023 End: 12-25-2023 Patient encounter procedure 12/25/2023 11:00 AM EDT [facility] [address] [place] [address] [place] [id number] Woo Killian MD [address] [place] [address] [facility] Start: 12-21-2023 Medicare Annual Wellness Visit Medicare Annual Wellness Visit [facility] Start: 08-30-2023 End: 08-30-2023 Patient encounter procedure [facility] Start: 08-30-2023 Subsequent hospital visit by physician 08/30/2023 1:15 PM EST Hospital Encounter [facility] [address] [place] [id number] [facility] Start: 08-02-2023 End: 08-02-2024 Holter monitor study Holter monitor 24-48 hour Cardiac Services Routine Symptomatic bradycardia LBBB (left bundle branch block) Expected: 08/02/2023, Expires: 08/02/2024 [facility] Comment on above: Expected: 08/02/2023 , Expires: 08/02/2024 Start: 08-02-2023 End: 08-02-2024 MR Brain WO contrast MR brain without contrast Imaging Routine Transient ischemic attack (TIA) Expected: 08/02/2023, Expires: 08/02/2024 [employer] Work Phone: Comment on above: Expected: 08/02/2023 , Expires: 08/02/2024 Start: 08-02-2023 End: 08-02-2024 US Carotid arteries - bilateral Vas carotid duplex bilateral Vascular Ultrasound Routine Transient ischemic attack (TIA) Facial weakness Expected: 08/02/2023, Expires: 08/02/2024 [facility] Comment on above: Expected: 08/02/2023 , Expires: 08/02/2024 Start: 08-02-2023 End: 08-02-2023 Patient encounter procedure 08/02/2023 9:30 AM EST Office Visit [facility] [address] [place] [id number] Woo Killian MD [address] [place] [address] [facility] Start: 09-29-2020 2nd Dose- COVID Vaccine [facility] Work Phone: Start: 08-01-2018 Screening for malignant neoplasm of breast Mammogram [facility] Start: 1972 Adult BMI Follow Up Plan Adult BMI Follow Up Plan [facility] Immunizations Immunization Date Immunization Notes Care Provider Fa cility 06-18-2023 RSV, recombinant, protein subunit RSVpreF, adjuvant reconstituted, 0.5 mL, PF Woo Killian MD Work Phone: [facility] 05-16-2023 Influenza Vaccine, Quadrivalent, Adjuvanted Woo Killian MD Work Phone: [facility] 06-20-2022 Covid-19, Mrna, Lnp- s, Bivalent, Pf, 50mcg/0.5ml or 25mcg/0.25ml Woo Killian MD Work Phone: [facility] 03-05-2022 Influenza, High-dose , Quadrivalent Woo Killian MD Work Phone: [facility] 03-05-2022 pneumococcal polysaccharide vaccine, 23 valent Woo Killian MD Work Phone: [facility] 03-05-2022 pneumococcal vaccine , unspecified formulation Woo Killian MD Work Phone: [facility] 04-12-2021 Influenza Vaccine, Quadrivalent, Adjuvanted Woo Killian MD Work Phone: [facility] 04-12-2021 influenza virus vacc ine, unspecified formulation Woo Killian MD Work Phone: [facility] 09-29-2020 2nd Dose MODERNA COVID-19 Vaccine; Translations: [Moderna COVID-19 Vaccine] [facility] Work Phone: Comment on above: Note: Patient tolera meli well. No signs or symptoms of adverse reactions. Patient waited a minimum of 15 minutes. 09-03-2020 2nd Dose MODERNA COVID-19 Vaccine; Translations: [Moderna COVID-19 Vaccine] [facility] Comment on above: Note: Patient tolera meli well. No signs or symptoms of adverse reactions. Patient waited a minimum of 15 minutes. 03-29-2020 Influenza Vaccine, Quadrivalent, Adjuvanted Woo Killian MD Work Phone: [facility] 03-29-2020 zoster vaccine recombinant Woo Killian MD Work Phone: [facility] 07-20-2019 zoster vaccine recombinant Woo Killian MD Work Phone: [facility] 03-31-2019 influenza, injectabl e, quadrivalent, preservative free Woo Killian MD Work Phone: [facility] 03-31-2019 pneumococcal conjuga te vaccine, 13 valent Woo Killian MD Work Phone: [facility] 03-31-2019 tetanus toxoid, redu francisco diphtheria toxoid, and acellular pertussis vaccine, adsorbed Woo Killian MD Work Phone: [facility] 04-22-2018 influenza, injectabl e, quadrivalent, preservative free Woo Killian MD Work Phone: [facility] 06-11-2017 influenza, injectabl e, quadrivalent, preservative free Woo Killian MD Work Phone: [facility] 06-19-2015 influenza, seasonal, injectable, preservative free Woo Killian MD Work Phone: [facility] 09-12-2011 tetanus toxoid, redu francisco diphtheria toxoid, and acellular pertussis vaccine, adsorbed Woo Killian MD Work Phone: [facility] 04-14-2010 pneumococcal polysaccharide vaccine, 23 valent Woo Killian MD Work Phone: [facility] Payers Date Payer Category Payer Medicare ANTH MEDICARE ANTHEM MEDICARE ADVANTAGE [id number] 2019-[facility] [phone] [address] [place] [address] [id number] 2017 Unknown [id number] 1959 Unknown [id number] 1954 Unknown [id number] 1954 Unknown [id number] 6 1954 Unknown [id number] 6 1954 Unknown [id number] 6 1954 Unknown [id number] 6 1954 Unknown [id number] 6 1955 Unknown [id number] 6 1955 Unknown [id number] 6 Social History Date Type Detail Facility Tobacco smoking status Unknown i f ever smoked [facility] Work Phone: Start: 01-10-2023 Tobacco smoking stat [facility] Ex-smoker [facility] History of tobacco use Current smoker [facility] History of tobacco use Cigarette Smoker [facility] Start: 01-10-2023 Tobacco use and exposure Smoke less tobacco non-user [facility] Start: 07-05-2023 End: 08-30-2023 Alcohol intake Current drinker of alcohol (finding) [facility] Start: 07-22-2020 End: 07-05-2023 Alcohol intake [facility] Start: 05-25-2020 End: 07-22-2020 Alcohol Use Disorder Identification Test - Consumption [AUDIT-C] [employer] Frequency of Alcohol Consumption 2-3 times a week [employer] Start: 01-10-2023 Tobacco Comment Casual smoker, less than a pack a week [employer] Start: 1955 Sex Assigned At Not on file [email or web address] Medical Equipment Procedure Code Equipment Code Equipment Origin al Text Equipment Identifier Dates Cardiac pacemaker, device (physical object) ([id number]) Pacemaker-06/19/20 23 [id number] Start: 06-19-2023 Comment on above: Description: [facility] L[facility]IGUA Clinical Notes 06-19-2023 to 10-05-2023 Telephone Encounter - Rody García LPN - 08/07/2023 7:37 AM ESTTelephone Encounter - Rody García LPN - 08/07/2023 7:37 AM ESTDaramesh Killian MD - 08/02/2023 9:30 AM EST Note Date & Type Note Facility 10-05-2023 Note HNO ID: [id number] Author: CELI RODRIGUES MD, PhD Service: ? Author Type: Physician Type: Progress Notes Filed: 10/05/2023 12:38 Note Text: [facility] Initial Consultation requested by Woo Hadyen Consultation requested by Dr. Killian for an opinion regarding TIA. My final recommendations will be communicated back to the requesting physician by way of shared Medical record or letter to requesting physician via US mail. 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 History of Event: 03/2023: Daily intermittent bilateral lip and chin tingling for a few minutes Was wearing a smart watch and low HR down to mid 40 bpm was detected 06/16/23: Took her horses to the [facility]. Once she had loaded the horse, she had new onset dizziness (spinning), no nausea, and fell to the left twice, no LOC, no injury to head or other body part. Kelly fine right after. Drove home with her horse trailer and felt fine. 06/18/23: Called her PCP and was told to go to the ED. Went to the ED and was then transferred to [facility] Diagnosed with Left BBB bundle and AV block S/p pacemaker 06/21/23 No symptoms for 2-3 weeks afterwards Recurrence of lip tingling for a while but none recently. 08/02/23: Saw PCP, Dr. Killian for lip numbness x2 days Started on ASA 81 mg and Plavix 75 mg daily 48h Holter monitor (08/26/23): 102 supraventricular ectopic rhythms; 13 runs of non-sustained VT MRI brain (08/30/23): no acute findings; FLAIR hyperintensities c/w sequela of chronic microangiopathy Carotid US (08/30/23): <50% bilateral stenosis Father with Afib and stroke at age 82 years Mother with pacemaker and stroke shortly after pacemaker implantation at age 80 years Patient is the oldest of 5 siblings. None of her siblings have a h/o stroke. Antiplatelets/Anticoagulants: Aspirin and Clopidogrel Residual Deficits: No residual deficits Interval: Has been doing well. No new symptoms. Antiplatelets/anticoagulation: ASA 81 mg daily, Plavix 75 mg daily Statin/lipid lowering agent: none Tobacco: never Sleep: ok , TV may interfere with her sleep; says that she snores; wakes up rested, no morning headaches, no daytime sleepiness Current Outpatient Medications Medication Sig clopidogrel (PLAVIX) 75 mg tablet Take 75 mg by mouth every morning. aspirin, enteric coated (ASPIRIN, ENTERIC COATED) 81 mg EC tablet Take by mouth every 24 hours. escitalopram oxalate (LEXAPRO) 10 mg tablet Take 20 mg by mouth every morning. ascorbic acid (VITAMIN C ORAL) Take by mouth once daily. vitamin B complex (B COMPLEX 1 ORAL) Take by mouth once daily. ferrous sulfate 325 mg (65 mg iron) tablet Take 325 mg by mouth as needed. glucosamine HCl (GLUCOSAMINE, BULK, MISC) Take by mouth once daily. MYRBETRIQ 50 mg Tb24 Take 50 mg by mouth once daily. Ca Carb-Mag Cmb 11-D3-Zn Sulf [phone] th-gfnr-ws-mg tab Take by mouth once daily. No current facility-administered medications for this visit. ALLERGIES No Known Allergies PAST MEDICAL HISTORY Diagnosis Date LBBB (left bundle branch block) Mitral regurgitation MVP (mitral valve prolapse) Osteoarthrosis involving multiple sites PAST SURGICAL HISTORY Procedure Laterality Date PELVIS OP SURGERY pelvic surgery S SLING BLADDER 2018 Family History Problem Relation Age of Onset Stroke Mother Ischemic Heart Disease Mother s/p PCI other (pacemaker) Mother Stroke Father other (atrial fibrillation) Father other (valvular heart disease) Father SOCIAL HISTORY No social history on file. BP 122/65 (BP Site: Left Arm, BP Position: Sitting, BP Cuff Size: Regular Adult) Pulse 83 Temp 36.1 ?C (96.9 ?F) (Temporal) Resp 14 Ht 166 cm (5' 5.35 ) Wt 72.6 kg (160 lb) SpO2 99% BMI 26.34 kg/m? EXAM PHYSICAL EXAM: General appearance: Awake and alert. No distress. Cooperative with exam. Normal speech: no aphasia or dysarthria. NEUROLOGICAL EXAM: Mental Status: Alert, oriented to person, place and time and Follows commands. Cranial Nerves: CNII: Visual sanchez full to confrontation, No APD noted on exam CNIII, IV, : Pupils equal, round and reactive to light, full extraoccular movements, without nystagmus CN V: Facial sensation intact bilaterally to fine touch CN VII: Facial muscles symmetric and strong, No noted facial droop CN VIII: Hears finger rub well bilaterally CN IX: Gag Reflex Not examined CN X: Palate elevates symmetrically CN XI: Full strength shoulder shrug bilaterally CN XII: Tongue protrusion full and midline Motor: muscle strength 5/5 both upper and lower extremities, no drift Sensation: int (more content not included)... [facility] 09-24-2023 Note HNO ID: [id number] Author: SUSHILA KEANE MD Service: ? Author Type: Physician Type: Progress Notes Filed: 09/27/2023 21:48 Note Text: Heart and Vascular Clar[facility] Dash [facility] Department of Cardiovascular Medicine SECTION OF CARDIOVASCULAR IMAGING OUTPATIENT VISIT DATE September 24, 2023 OUTPATIENT VISIT TYPE NEW (>3yr since last seen) CHIEF COMPLAINT: Further evaluation of valve disease HISTORY OF PRESENT ILLNESS: Ms. Davey is a 68 year old female from [place], [place] who presents for follow-up. Since last seen, interval PPM (syncope, 2HB) Jun 2023; subsequently reported intermittent lip numbness and was evaluated for TIA locally (unexplained by MRI Brain, Holter, US Carotids. 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 Parents had stroke. History of LBBB, bileaflet mitral valve prolapse with mild MR/TR. PAST MEDICAL HISTORY Diagnosis Date LBBB (left bundle branch block) Mitral regurgitation MVP (mitral valve prolapse) PAST SURGICAL HISTORY Procedure Laterality Date PELVIS OP SURGERY pelvic surgery S SLING BLADDER 2017 SOCIAL HISTORY Social History Tobacco Use Smoking status: Former Packs/day: 0.10 Years: 1.00 Additional pack years: 0.00 Total pack years: 0.10 Types: Cigarettes Quit date: 07/23/1976 Years since quittin.1 Smokeless tobacco: Never Substance Use Topics Alcohol use: No Comment: occasional Drug use: No FAMILY HISTORY Problem Relation Age of Onset Stroke Mother Ischemic Heart Disease Mother s/p PCI other (pacemaker) Mother Stroke Father other (atrial fibrillation) Father other (valvular heart disease) Father ALLERGIES: ALLERGIES [...] once daily. Ca Carb-Mag Cmb 11-D3-Zn Sulf [phone] ij-bfkp-jc-mg tab Take by mouth once daily. naproxen (NAPROSYN) 500 mg tablet Take 500 mg by mouth once daily. TURMERIC ORAL once daily. propranolol (INDERAL) 80 mg tablet Take 80 mg by mouth once daily. CARDIOVASCULAR MEDICINE TESTING: General: In no acute distress Skin: No clubbing, no cyanosis Eyes: Extra ocular movements intact Oropharynx: In good repair Neck: No jugular venous distention Lungs: Clear Heart: Regular rhythm, S1, S2 normal, no S3, no S4, and v soft sys murmur Abdomen: Soft Extremities: No peripheral edema Neuro: Oriented to person, place and time, alert, cooperative, gait coordinated CARDIAC TESTING: Electrocardiogram: ATRIAL-PACED RHYTHM COMPLETE LEFT BUNDLE BRANCH BLOCK ABNORMAL ECG I have personally reviewed the above. IMPRESSION: Ms. Davey is a 68 year old female from [place], [place] who presents for follow-up. Since last seen, interval PPM (syncope, 2HB) Jun 2023; subsequently reported intermittent lip numbness and was evaluated for TIA locally (unexplained by MRI Brain, Holter, US Carotids. 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 Parents had stroke. History of LBBB, bileaflet mitral valve prolapse with mild MR/TR. PLAN AND RECOMMENDATIONS: Prevention advice. Follow-up with PCP at least 12 monthly and here prn if symptoms don't settle/improve. CONTACT INFORMATION: Sushila Keane MD, PhD, JATINDER, [facility] Winding Inspector And Testerstation repairer, [facility], Staff, Section of Cardiovascular Imaging, Co-Director Cardio-Oncology Center, Transformer Assembler of the Echocardiographic Lab, Dash [facility] Dept. Of Cardiovascular Medicine, [address] / [address] [place], [place] [address] Appt: [phone] [facility] 08-07-2023 Miscellaneous Notes Fax received from [facility] requesting refill of Escitalopram documented in this encounter [facility] 08-07-2023 Telephone encounter Note Fax received from [facility]-02-2023 History of Present illness Narrative Images from the original note were not included. [id number] [facility] [id number] SUBJECTIVE: Patient ID: Luma Davey is a 68 y.o. female. 68 yo WF s/p pacer placemnt Dc 2022 and just recently pt had numbness of lips x 1-2 minutes the last two days Pt had parents that both had strokes The following portions of the patient's history were reviewed and updated as appropriate: allergies, current medications, past family history, past medical history, past social history, past surgical history and problem list. REVIEW OF SYSTEMS: Review of Systems Cardiovascular: Negative for chest pain and palpitations. Neurological: Positive for numbness. PHYSICAL EXAMINATION: Vitals: 08/02/23 0908 BP: 120/80 BP Site: Left Arm BP Postition: Sitting BP CUFF SIZE: M (9-13 inches) Pulse: 72 Resp: 16 Weight: 76.2 kg (168 lb) Height: 165.1 cm (5' 5 ) Physical Exam Vitals and nursing note reviewed. Constitutional: Appearance: Normal appearance. HENT: Head: Normocephalic and atraumatic. Eyes: Extraocular Movements: Extraocular movements intact. Pupils: Pupils are equal, round, and reactive to light. Cardiovascular: Rate and Rhythm: Normal rate and regular rhythm. Pulses: Normal pulses. Heart sounds: Normal heart sounds. Pulmonary: Effort: Pulmonary effort is normal. Breath sounds: Normal breath sounds. Skin: General: Skin is warm and dry. Neurological: General: No focal deficit present. Mental Status: She is alert and oriented to person, place, and time. Mental status is at baseline. Psychiatric: Mood and Affect: Mood normal. Behavior: Behavior normal. ASSESSMENT/PLAN: Luma was seen today for follow-up. Diagnoses and all orders for this visit: Transient ischemic attack (TIA) - MR brain without contrast; Future - Vas carotid duplex bilateral; Future Symptomatic bradycardia - Holter monitor 24-48 hour; Future LBBB (left bundle branch block) - Holter monitor 24-48 hour; Future Facial weakness - Vas carotid duplex bilateral; Future Other orders - aspirin 81 mg; Take 1 tablet (81 mg total) by mouth in the morning. - clopidogreL (PLAVIX) 75 mg tablet; Take 1 tablet (75 mg total) by mouth in the morning. - escitalopram (LEXAPRO) 10 mg tablet; Take 2 tablets (20 mg total) by mouth in the morning. Follow-up: Plavix 75mg 1 qd Aspirin 81mg 1 qd Carotid doppler MRI brain Holter monitor documented in this encounter [facility] 07-24-2023 Note Patient here for [facility] for bradycardia. She had PPM implant on 06/[address] Lindsey. She feels good s/p implant, with palpitations resolving. She has seen [facility] and [facility] in the past. Still has apt with [facility] in August 2023. Denies chest pain, SOB, and lightheadedness. Review of Systems All other systems reviewed and are negative. [facility] 07-24-2023 Note [place] Electrophysiology Consult Note Reason for visit: bradycardia/2:1 av block s/p DC PPM 06/21/23 HPI: Luma Davey is a 68 y.o. year old female patient past medical history LBBB, MVP with mild MR, palpitations, bradycardia s/p DC PPM 06/21/23 d/t bradycardia/2:1 av block Interval: 07/24/23: She is here for hospital follow-up from [facility] where she was admitted for bradycardia/21 AV block patient had dual-chamber PPM implanted 06/21/2023 He states she been feeling very well since discharge and implant of PPM. 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 We discussed that her PPM restrictions can be lifted and she can resume normal activity/driving Device check 07/31/2023 normal device function and stable lead thresholds, RA pacing 60%, RV pacing 99% HPI dr. Lindsey 06/20/23 HPI: Luma Davey is a 67 y.o. year old with past medical history of LBBB, MVP with mild MR, palpitations on propanlol, who presents as a transfer from [facility] for symptomatic bradycardia. She has been experiencing dizziness which occurs with neck movement. She also feels very SOB with activity. Dizziness comes in episodes. However, on Sunday, her [...] stroke-like symptoms with tingling, numbness, and dizziness. While I was conversing with her, she would go into 2:1 AV bloc with HR 44bpm and also has 1:1 conduction and at this time, no symptom noted. Since admission her Propranolol was stopped and despite this, AV block persists. ---- PMH: Past Medical History: Diagnosis Date Abnormal ECG AV block Bradycardia PSH: Past Surgical History: Procedure Laterality Date CTA CHEST W AND/OR WO IV CONTRAST 10/24/2016 CT CHEST ANGIOGRAM W AND/OR WO IV CONTRAST ALBERTS CONVERSION INSERT / REPLACE / REMOVE PACEMAKER PELVIC FRACTURE SURGERY TUBAL LIGATION WRIST SURGERY SH: Social Determinants of Health Tobacco Use: Low Risk (07/24/2023) Patient History Smoking Tobacco Use: Never Smokeless Tobacco Use: Never Passive Exposure: Not on file Alcohol Use: Not on file Financial Resource Strain: Low Risk (06/19/2023) Overall Financial Resource Strain (CARDI) Difficulty of Paying Living Expenses: Not hard at all Food Insecurity: Unknown (06/19/2023) Hunger Vital Sign Worried About Running Out of Food in the Last Year: Never true Ran Out of Food in the Last Year: Not on file Transportation Needs: Unknown (06/19/2023) PRAPARE - Transportation Lack of Transportation (Medical): No Lack of Transportation (Non-Medical): Not on file Physical Activity: Not on file Stress: Not on file Social Connections: Not on file Intimate Partner Violence: Unknown (06/19/2023) Humiliation, Afraid, Rape, and Kick questionnaire Fear of Current or Ex-Partner: No Emotionally Abused: Not on file Physically Abused: Not on file Sexually Abused: Not on file Depression: Not on file Housing Stability: Unknown (06/19/2023) Housing Stability Vital Sign Unable to Pay for Housing in the Last Year: Not on file Number of Places Lived in the Last Year: Not on file Unstable Housing in the Last Year: No Utilities: Not on file Allergies: No Known Allergies Weight: 76.7kg Visit Vitals BP 120/68 (BP Location: Left arm, Patient Position: Sitting) Pulse 90 Ht 1.651 m (5' 5 ) Wt 76.7 kg (169 lb) LMP (LMP Unknown) SpO2 96% BMI 28.12 kg/m??? OB Status Postmenopausal Smoking Status Never BSA 1.88 m??? Meds: Current Outpatient Medications on File Prior to Visit Medication Sig Dispense Refill escitalopram (Lexapro) 10 mg tablet Take 10 mg by mouth in the morning. Myrbetriq 50 mg tablet extended release 24 hr pantoprazole (ProtoNix) 40 mg EC tablet Take 1 tablet by mouth in the morning. [] acetaminophen (T (more content not included)... [facility] 07-05-2023 History of Present illness Narrative Images from the original note were not included. [id number] [facility] [id number] SUBJECTIVE: Transition of Care Additional Questions/Concerns Requiring PCP Follow-Up: This documentation is being used for Transition of Care purposes: Yes Goal: Patient will demonstrate a safe transition from hospital to home. Diagnosis on Discharge: Symptomatic bradycardia History of mitral valve prolapse Perioral numbness Admission Diagnosis: Bradycardia [R00.1] Discharge Specialty: Cardiac Name of Discharging Facility: [facility] Date of Facility Discharge: 06/22/23 Date of Interactive Contact and Name of Client Service And Consulting Manager: Myron with Luma on 06/26/23 Medication Review Completed: Yes Medication Reconciliation Questions/Concerns: START taking these medications Instructions Last Dose Given Next Dose Due acetaminophen 500 mg tablet Commonly known as: Tylenol Take 1 tablet (500 mg) by mouth every 6 (six) hours if needed for moderate pain (4-7 pain score). amoxicillin-pot clavulanate 875-125 mg tablet Commonly known as: Augmentin-- FINISHED THIS AM Take 1 tablet by mouth in the morning and at bedtime for 8 doses. Protonix- 40 mg daily started on 06/24/23 STOP taking these medications propranolol LA 80 mg 24 hr capsule Commonly known as: Inderal LA Follow Up Appointments with Providers: Primary: Woo Killian MD MARIA DE JESUS 07/05/23 @ 1:15 Specialty: Device check [facility] on 07/04/2023 Specialty: Cardiology- @ [place] office 07/24/23 @ 1:40 Specialty: Review of Pending Lab/Diagnostic Tests and Plan for Completion: 06/21/23: Implantation of pacemaker (Biotronik) Patient went to [place] ER on 06/24/23 for CP/severe heart burn. Protonix [address] chest 06/24 was negative for PE--- checked due to SOB Assessment and Support of Treatment Regimen Adherence and Medication Management: Patient denies CP today but was having what felt like heart burn but unsure if that or cardiac. Taking tylenol and naproxen for pain. Did have dizziness previously and again this morning when she sat down. Stated she is getting around the house ok and is sleeping upstairs. Does get SOB and even more with activity. She is keeping a log, diary, and list of questions for providers. Has been using her wrist and stop watch to check heart rate Appetite has been ok No concerns for bathroom issues Not taking propanolol as prescribed Education Provided by ACN to Support Self-Management, Independent Living and ADLs: Take medications as prescribed Reviewed DC instructions and activity restrictions for after pacemaker implantation provided to patient Reviewed manual check of heart rate. Patient is keeping a log Change positions slowly, ambulate often but take rest breaks as needed. -Call the MD you experience new or worsening symptoms. -Call for emergency help if you have signs of a heart attack; lyric writer CP, chest pressure, difficulty breathing, pain in arms, back or jaw, feeling faint or dizzy, and fast or irregular heartbeat. -CN contact information, Nela Phillips RN, can be reached at [phone] and will follow for a minimum of 30 days following hospitalization. Communication with Home Health Agencies and Other Services Utilized/Needed by the Patient: Patient ID: Luma Davey is a 68 y.o. female. 68 yo WF with dizziness and dyspnea went to ER 06/19 , was found to have heart rate in the 40's and was evaluated and had a pacer placed, has had some breathlessness The following portions of the patient's history were reviewed and updated as appropriate: allergies, current medications, past family history, past medical history, past social history, past surgical history and problem list. REVIEW OF SYSTEMS: Review of Systems Respiratory: Negative for shortness of breath. Cardiovascular: Negative for palpitations. Vague discomfort/burning Neurological: Negative for dizziness. Psychiatric/Behavioral: The patient is nervous/anxious. PHYSICAL EXAMINATION: Vitals: 07/05/23 1341 BP: 146/80 BP Site: Left Arm BP Postition: Sitting BP CUFF SIZE: M (9-13 inches) Pulse: 88 Resp: 16 Weight: 78.7 kg (173 lb 8 oz) Height: 165.1 cm (5' 5 ) Physical Exam Vitals and nursing note reviewed. Constitutional: Appearance: Normal appearance. HENT: Head: Normocephalic and atraumatic. Eyes: Extraocular Movements: Extraocular movements intact. Pupils: Pupils are equal, round, and reactive to light. Cardiovascular: Rate and Rhythm: Normal rate and regular rhythm. Pulses: Normal pulses. Heart sounds: Normal heart sounds. Pulmonary: Effort: Pulmonary effort is normal. Breath sounds: Normal breath sounds. Skin: General: Skin is warm and dry. Comments: Surgical left anterior chest wound is healing Neurological: General: No focal deficit present. Mental Status: She is alert and oriented to person, place, and time. Psychiatric: Mood and Affect: Mood normal. ASSESSMENT/PLAN: Luma was seen today for maria de jesus. Diagnoses and all orders for this visit: Symptomatic bradycardia MVP (mitral valve prolapse) LBBB (left bundle branch block) Other orders - escitalopram (LEXAPRO) 10 mg tablet; Take 1 tablet (10 mg total) by mouth in the morning. Follow-up: Start Lexapro 10mg 1 qd- recheck 28d F/u cardiology Serial BP documented in this encounter [facility] 06-22-2023 Note Occupational Therapy Occupational Therapy Evaluation Patient Name: [facility] : 1955 Today's Date: 06/22/2023 Time in:1105 Time out: [id number] Present Illness History: 67 y/o F presented to [facility] ED from [place] for management of cardiac needs. Patient found [...] Level of Function Prior Function Level of [place]: Independent with ADLs and functional transfers, Independent [...] comments: Patient comp (more content not included)... [facility] 06-22-2023 Note Hospital Medicine Discharge Summary [...] to have bradycardia. She was transferred to [facility] to be evaluated by cardiology. They reviewed her EKGs from [facility] and telemetry in our hospital which was showing episodes of 2-1 AV block, second-degree AV block Mobitz 2 and nonconducted PACs. Her propranolol was held and the patient continued to have lightheadedness/dizziness and bradycardia. 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 She had an echocardiogram which [...] Time Provider Department Center 07/04/2023 7:30 AM [facility] CV CLINIC DEVICE CHECK HVC CARD UT [...] Medications These medications were sent to [facility] - [place], [place] - [address] [place] [address] [place] [address], [facility] [address] acetaminophen 500 mg tablet amoxicillin-pot clavulanate 875-125 [...] was 35 minutes. Signed Austyn Lyons MD [facility] Medicine 06/22/2023 11:38 AM [facility] 06-22-2023 Note [facility] CARDIOLOGY INPAT IENT [...] diarrhea/vaginal yeast infection. Tele: mostly paced, occasional gakona beats ALLERGIES No Known Allergies CURRENT MEDS [...] Medications These medications were sent to [facility] [address] [place] [address] [address] [facility] [address] [place] [address], [facility] [address] acetaminophen 500 mg tablet amoxicillin-pot clavulanate 875-125 [...] Encounter Date: 06/19/23 (more content not included)... [facility] 06-21-2023 Note DUAL CHAMBER PACEMAK ER IMPLANT PROCEDURE NOTE DATE OF PROCEDURE: 06/21/23 PERFORMING PHYSICIAN: Dr. Pan Lindsey PICTURE COPYIST: Dr Angella Silver CONSENT: Patient LOCATION: EP [...] propanlol, who presents as a transfer from [facility] for symptomatic bradycardia. She has been experiencing [...] using modified seldinger technique using a 5 Afghan micro-puncture needle on two occasions and 0.35 [...] for the device above the muscle. 6 Afghan Safesheaths were placed over the wire. An active fixation Biotronik pacing lead was then delivered through the 6Fsheath tothe right ventricle. After confirmation of lead position on orthogonal views (KIMBLE and HUNGARIAN) to confirm septal position, the screw was [...] lead position on orthogonal views (KIMBLE and HUNGARIAN), the screw was activated. Good sensing parameters, [...] discharge or sooner for any concerns. Pan Lindsey MD Cardiac Electrophysiology [facility] 06-21-2023 Note Patient: Luma Davey Procedure Information Date/Time: 06/21/23 1530 Procedure: Implant PPM - biventricular Location: [facility] STONE TRIMMER 1 EP / [facility] VASCULAR LAB (Cath) Providers: Pan Lindsey MD Clinical information reviewed: Tobacco Allergies Meds Med Hx Surg Hx Fam Hx Soc Hx Physical Exam Airway Mallampati: II TM distance: >3 FB Neck ROM: full Cardiovascular Dental Pulmonary Abdominal Anesthesia Plan ASA 3 Anesthetic plan and risks discussed with patient. Use of blood products discussed with patient who. Additional Equipment Requests [facility] 06-21-2023 Note Hospital Medicine Daily Progress Note - 06/21/2023 10:57 AM; Room: [address] [place] [address] Admission: 06/19/2023 10:34 AM; Length of stay: 2 days THE HOSPITALIST TEAM PREFERS TO USE [employer] CHAT FOR COMMUNICATION 7AM-7PM. IF I DO NOT RESPOND WITHIN 15 MINUTES, PLEASE PAGE ME/CALL THROUGH THE AIR QUALITY SPECIALIST. FROM 7PM-7AM, PLEASE PAGE [phone](COVR) Code Status: Full Code Barriers to Discharge: [...] 2.78 06/19/2023 Lab Results Component Value Date [id number] 06/19/2023 IRON 20 (L) 06/20/2023 TIBC 386 06/20/2023 Imaging ECG 12 lead Normal sinus rhythm Left bundle branch block Abnormal ECG No previous ECGs available Confirmed by Pan Lindsey ([id number]) on 06/19/2023 6:24:21 PM Complete Echo (TTE) w/wo Imaging Agent, Strain, 3D, Bubble Study 1 1 [place] [facility] Heart Station [address] [place] [address] [phone] (fax) Echocardiogram-[facility] Name: LUMA DAVEY Study Date: 06/19/2023 01:16 PM B/P: 115 mmHg/75 mmHg HR: Date of : 1955 Location: [facility] Height: 65 in. Age: 67 year(s) Patient [...] LVSVI, 2D 17 (more content not included)... [facility] 06-21-2023 Note Cardiology Progress Note Subjective Subjective: Luma Davey is a 67 y.o. female with past medical history of known LBBB, MVP with mild MR, palpitations on propanlol, who presents as a transfer from [facility] for symptomatic bradycardia. Patient states she chronically [...] ???F) Temporal 59 14 94 % -- 12/20/23 1200 141/72 36.5 ???C (97.7 ???F) Temporal [...] Value Ventricular Rate 85 Atrial Rate 85 FL Interval 156 QRS DURATION 132 QT Interval 480 QTC CALCULATION(BAZETT) 571 P Vinton 68 R-Vinton 1 T Wave Vinton 34 Impression Normal sinus rhythm Left bundle branch block Abnormal ECG No previous ECGs available Confirmed by Pan Lindsey ([id number]) on 06/19/2023 6:24:21 PM No results found for: CKTOTAL , CKMB , CKMBINDEX , TROPONINI Complete Echo (TTE) w/wo Imaging Agent, Strain, 3D, Bubble Study Result Date: 06/19/2023 1 1 [facility] Heart Station [address] [facility] [place] [address] [phone] (fax) Echocardiogram-[facility] Name: LUMA DAVEY Study Date: 06/19/2023 01:16 PM B/P: 115 mmHg/75 mmHg HR: Date of : 1955 Location: [facility] Height: 65 in. Age: 67 year(s) Patient [...] Valve Label Value (more content not included)... [facility] 06-20-2023 Note Hospital Medicine Daily Progress Note - 06/20/2023 12:45 PM; Room: [facility]- Admission: 06/19/2023 10:34 AM; Length of stay: 1 days THE HOSPITALIST TEAM PREFERS TO USE [employer] CH[employer] FOR COMMUNICATION 7AM-7PM. IF I DO NOT RESPOND WITHIN 15 MINUTES, PLEASE PAGE ME/CALL THROUGH THE AIR QUALITY SPECIALIST. FROM 7PM-7AM, PLEASE PAGE [phone](COVR) Code Status: Full Code Barriers to Discharge: [...] 2.78 06/19/2023 Lab Results Component Value Date [id number] 06/19/2023 Imaging ECG 12 lead Normal sinus rhythm Left bundle branch block Abnormal ECG No previous ECGs available Confirmed by Pan Lindsey ([id number]) on 06/19/2023 6:24:21 PM Complete Echo (TTE) w/wo Imaging Agent, Strain, 3D, Bubble Study 1 1 [facility] Heart Station [address] [place] [address] [phone] (fax) Echocardiogram-[facility] Name: LUMA DAVEY Study Date: 06/19/2023 01:16 PM B/P: 115 mmHg/75 mmHg HR: Date of : 1955 Location: [facility] Height: 65 in. Age: 67 year(s) Patient [...] Label Value N (more content not included)... [facility] 06-20-2023 Note Attestation signed by Trudi Whipple MD at 06/20/2023 2:03 PM Case discussed with HEALTHCARE ARCHITECT. Do not bill level of service. Primary to call back if they need a full consult. Trudi Whipple MD On 06/20/2023- Neurology Team and Stroke Team were asked by Primary service about Pt c/o Alis oral numbness for 1-2 week. Family and Pt concerned it was a neurological issues. Neurology HEALTHCARE ARCHITECT discussed issue with Neurology Attending and Stroke [...] negative for acute intracranial abnormalities. Maral Mosqueda DNP Neurology Inpatient HEALTHCARE ARCHITECT [facility] 06-20-2023 Note Attestation signed by Vijay Sandoval MD at [...] performed tomorrow 06/21/2023 Vijay Sandoval MD, MPH, [facility], [facility], [facility] Interventional Cardiology Pager Email: [email or web address] Cardiology Progress Note Subjective Subjective: Luma Davey is a 67 y.o. female with past medical history of known LBBB, MVP with mild MR, palpitations on propanlol, who presents as a transfer from [facility] for symptomatic bradycardia. Patient states she chronically [...] Value Ventricular Rate 85 Atrial Rate 85 FL Interval 156 QRS DURATION 132 QT Interval 480 QTC CALCULATION(BAZETT) 571 P Vinton 68 R-Vinton 1 T Wave Vinton 34 Impression Normal sinus rhythm Left bundle branch block Abnormal ECG No previous ECGs available Confirmed by Pan Lindsey ([id number]) on 06/19/2023 6:24:21 PM No results found for: CKTOTAL , CKMB , CKMBINDEX , TROPONINI Complete Echo (TTE) w/wo Imaging Agent, Strain, 3D, Bubble Study Result Date: 06/19/2023 1 1 [facility] Heart Station [address] [facility] [place] [address] [phone] (fax) Echocardiogram-[facility] Name: LUMA DAVEY Study Date: 06/19/2023 01:16 PM B/P: 115 mmHg/75 mmHg HR: Date of : 1955 Location: [facility] Height: 65 in. Age: 67 year(s) Patient [...] septum is abnorm (more content not included)... [facility] 06-19-2023 Note Hospital Medicine History and Physical 06/19/2023 12:31 PM THE HOSPITALIST TEAM PREFERS TO USE [employer] FOR COMMUNICATION 7AM-7PM. IF I DO NOT RESPOND WITHIN 15 MINUTES, PLEASE PAGE ME/CALL THROUGH THE AIR QUALITY SPECIALIST. FROM 7PM-7AM, PLEASE PAGE [phone](COVR) Chief Complaint No chief complaint on file. History of Present Illness Luma Davey is an 67 y.o. female w PMH [...] this hospital stay by a member of [facility] Medicine. Past Medical History History reviewed. No pertinent past medical history. Past Surgical History Past Surgical History (more content not included)... [facility] Evaluation note Diagnosis Symptomatic bradycardia- Primary MVP (mitral valve prolapse) Mitral valve disorders LBBB (left bundle branch block) Other left bundle branch block documented in this encounter [facility] Diagnosis Transient ischemic attack (TIA)- Primary Unspecified transient cerebral ischemia Symptomatic bradycardia LBBB (left bundle branch block) Other left bundle branch block Facial weakness documented in this encounter [facility]ructionsNot on filedocumented in this encounter [facility]* Attachments The following attachments cannot be sent through Care Everywhere. * Heart block in adults (Bengali) documented in this [facility] MobileOCT SystemInstructionsNot on file documented in this encounterProSamaritan HospitalSolePower SystemInstructionsNot on file documented in this encounterPro[facility] Summary Purpose Family History No Family History [...] Advanced Directives Records Found Reason for Referral Specialty Diagnoses / Procedures Referred By Farhana muñoz Referred To Contact Diagnoses Transient ischemic attack (TIA) Facial weakness Procedures Vas carotid duplex bilateral Woo Killian MD [address] [place] [address] Referral ID Status Reason Start Date Expiration Date V isits Requested Visits Authorized [id number] Pending Review 08/02/2023 08/01/2024 1 1 Specialty Diagnoses / Procedures Referred By Farhana muñoz Referred To Contact Diagnoses Symptomatic bradycardia LBBB (left bundle branch block) Procedures Holter monitor 24-48 hour Woo Killian MD [address] [place] [address] Referral ID Status Reason Start Date Expiration Date V isits Requested Visits Authorized [id number] Pending Review 08/02/2023 08/01/2024 1 1 Specialty Diagnoses / Procedures Referred By Farhana muñoz Referred To Contact Radiology Diagnoses Transient ischemic attack (TIA) Procedures MR brain without contrast Woo Killian MD [address] [place] [address] Referral ID Status Reason Start Date Expiration Date V isits Requested Visits Authorized [id number] Pending Review 08/02/2023 08/01/2024 1 1 Assessments Findings Encounter Date Encounter for Immunization 1st COVID Vaccine wit h Ruthie Hoyng PharmD 09/03/2020 Findings Encounter Date Encounter for Immunization 2nd Dose- COV ID Vaccine with Sabrina Caceres PharmD 09/29/2020 Encounter for Immunization 1st COVID Vaccine wit h Ruthie Hoyng PharmD 09/03/2020 Instructions Instructions not supported for [...] section and content) DATE CREATED AUTHOR 12/20/2017 [facility] DATE CREATED AUTHOR AUTHOR'S ORGANIZ ATION 12/24/2017 [facility] DATE CREATED AUTHOR AUTHOR'S ORGANIZ ATION 12/28/2017 [facility] DATE CREATED AUTHOR AUTHOR'S ORGANIZ ATION 01/18/2022 [facility] DATE CREATED AUTHOR AUTHOR'S ORGANIZ ATION 08/02/2023 [facility] DATE CREATED AUTHOR AUTHOR'S ORGANIZ ATION 09/02/2023 [facility] DATE CREATED AUTHOR AUTHOR'S ORGANIZ ATION 10/14/2023 [facility] DATE CREATED AUTHOR AUTHOR'S ORGANIZ ATION 01/01/2024 [facility] Medical History (unrecognize d section and content) Includes: Medical History in patient's chartNo Medical History Recorded Includes: Medical History in patient's chartNo Medical History Recorded Evaluations & Outcomes (unre cognized section and content) Includes: Evaluations & Outcomes for active GoalsNo Outcomes Recorded Includes: Evaluations & Outcomes for active GoalsNo Outcomes Recorded Reason for Visit (unrecogniz ed section and content) Reason Comments MARIA DE JESUS Reason Comments Follow-up Reason Onset Date Comments Med Refill 08/07/2023 Care Teams (unrecognized sec tion and content) Chopper Operator Relationship Specialty Start Date End Date Woo Killian MD [address] [place] [address] PCP - General Family Medicine 12/25/16 Chopper Operator Relationship Specialty Start Date End Date Woo Killian MD [address] [place] [address] PCP - [facility] 12/25/16 Chopper Operator Relationship Specialty Start Date End Date Woo Killian MD [address] [place] [address] PCP - [facility] 12/25/16 Chopper Operator Relationship Specialty Start Date End Date Woo Killian MD [address] [place], [place] [id number] PCP - General Family [facility] 12/25/16 FOR RECORDS PERTAINING TO PATIENTS WHO ARE [...] BE BASED ON THE PRIMARY CLINICAL RECORDS. [facility] [employer] [facility]. provides no warranty or guarantee of the accuracy or completeness of information in this document.
[2024-01-17 09:31] LABS: Alanine Aminotransferase 30 U/L (14-59); Aspartate Amino Transferase 23 U/L (15-37); Chol HDL Ratio 4.3; Cholesterol 207 mg/dL (<=200); HDL Cholesterol 48 mg/dL (40-60); Triglycerides 119 mg/dL (<=150); VLDL CHOLESTEROL 23.8 mg/dL
== END 2024-01-17 08:07 | disposition home or self-care (01) ==
PROVIDERS: PCP Family Medicine; Visit Provider Internal Medicine Cardiovascular Disease
DX: E78.5 Hyperlipidemia, unspecified (principal)
CPT/HCPCS: 36415; 80061; 84450; 84460

== ENCOUNTER 2024-01-29 07:07 | Outpatient (OUT) | payer MEDICARE, SELFPAY ==
--- OUTSIDE RECORDS SUMMARY | 2024-01-29 07:12 | XMS_ITS | CCD ---
Author Organization [facility] [place] [facility] Care Team Providers Care Ship'S Pilot Name Role Phone DBOUK, TAREK A Unavailable Unavailable DEFRANCE, WOO T Unavailable Unavailable DBOUK, TAREK A Unavailable Unavailable DBOUK, TAREK A Unavailable Unavailable DBOUK, TAREK A Unavailable Unavailable DEFRANCE, WOO T Unavailable Unavailable ANAI, MAXIME M Unavailable Unavailable [...] Unavailable Defrance Woo GONZALEZ Primary Care Provider [phone] WOO KILLIAN Referring Unavailable DEFRANCEWOO Primary Care Unavailable DEFRANCEWOO Referring Unavailable DEFWOO COBOS Primary Care Unavailable DEFWOO COBOS Referring Unavailable DEFWOO COBOS Primary Care Unavailable WOO LERNER Primary Care Unavaila ble DE CHRISTINA, WOO YBARRA Referring Unavaila ble CELI RODRIGUES Attending Unavailable DE CHRISTINA, WOO YBARRA Primary Care Unavaila ble KEANE, SUSHILA Attending Unavailable KEANE, SUSHILA Referring Unavailable DE CHRISTINA, WOO YBARRA Primary Care Unavaila ble KEANE, SUSHILA Referring Unavailable DEFRANCE, WOO Sellers Attending Unavailable DEFRANCE, WOO Sellers Referring Unavailable DEFRANCE, WOO Sellers Primary Care Unavailable DEFRANCE, WOO Sellers Attending Unavailable DEFRANCE, WOO Sellers Referring Unavailable DEFRANCE, WOO Sellers Primary Care Unavailable DEFRANCE, WOO Sellers Attending Unavailable DEFRANCE, WOO Sellers Referring Unavailable DEFRANCE, WOO Sellers Primary Care Unavailable HARTMANNFABRIZIO Attending Unavailable DEFRANCE, WOO Sellers Referring Unavailable DEFRANCE, WOO Sellers Primary Care Unavailable BARAZI, SOM Referring Unavailable BLANCA, SAKINA Referring Unavailable BLANCA, SAKINA Referring Unavailable SRI, AUSTYN Referring Unavailable CÉSAR, PAN Referring Unavailable AKBAR, LEX Attending Unavailable BARAZI, SOM Attending Unavailable SRI, AUSTYN Attending Unavailable JAMIE, DEBI Admitting Unavailable KATKO, KYLEE Referring Unavailable CÉSAR, PAN Referring Unavailable Allergies Allergy Classification Reported Allergen(s) Allergy Type Date of Onset Reaction(s) Facility (1 source) 82202,00 Drug allergy (disorder) 7 [facility] Repository (1 source) ALLERGIES NOT ON FILE; Translations: [ALLERGIES NOT ON FILE] Propensity to adverse reactions (disorder) [facility] Repository Medications Current Medications Medication Drug Class(es) Dates Sig (Normalized) Sig (Original) aspirin 81 mg delayed release oral tablet (3 sources) Platelet Aggregation Inhibitor, Nonsteroidal Anti-inflammatory Drug Start: 08-02-2023 take 1 tablet by mouth in the morning aspirin 81 mg Take 1 tablet (81 mg total) by mouth in the morning. 0 08/02/2023 Active [id number]-[id number] C ORAL (4 sources) take 1 capsule by mouth in the evening [id number]-[id number] NC ORAL Take 1 capsule by mouth [...] Date Documented Da te Episodic/Chronic Conduction disorders (16 sources) Left bundle branch block; Translations: [Left bundle-branch block, unspecified] Onset: 06-14-2018 07-05-2023 Chronic Deficiency and other anemia (1 source) Other iron deficiency anemias; Translations: [Other iron deficiency anemias] Onset: 12-25-2023 Episodic Disorders of lipid metabolism (7 sources) Mixed hyperlipidemia; Translations: [Hyperlipidemia, unspecified] Onset: 01-12-2022 Chronic Gastrointestinal hemorrhage (1 source) [...] Mood disorders (4 sources) Mood disorders Onset: 07-05-2023 Resolved: 08-02-2023 07-05-2023 Other connective tissue disease [...] Test Name Value Interpretation Reference Range Facility Office Visiton 01-14-2024 Follow-up visit [id number] Luma Davey 1955 F Date Provider Department Center 01/14/2024 LEX SALAZAR Family History Problem Relation Age of Onset Other Mother Stroke Mother Stroke Father Valvular heart disease Father Atrial fibrillation Father Family Status - Relation Status Age at Mother Father Level of Service:49571 SC OFFICE/OUTPATIENT ESTABLISHED LOW MDM 20 MIN Normal [facility] CNOVon 10-05-2023 CNOV Office Visit (NECVS8 ) LUMA DAVEY ([id number]) 1955 F Date Time Provider Department 10/05/23 9:00 AM CELI RODRIGUES NECVS8 During your visit today, we recorded the following information about you: Temperature Pulse Respiration Blood pressure 96.9 degrees 83/minute 14/minute 122/65 Weight Height 72.6 kg 1.66 m Celi Rodrigues MD, PhD 10/05/2023 12:38 PM Signed [facility] Initial Consultation requested by Woo Lerner Consultation requested by Dr. Killian for an opinion regarding TIA. My final recommendations will be communicated back to the requesting physician by way of shared Medical record or letter to requesting physician via US mail. PCP Woo Lerner MD [address] [facility], 1929[facility] [id number] [phone] CEREBROVASCULAR HISTORY Luma Davey is a very [...] detected 06/16/23: [facility]. Once she had loaded the horse, she had new onset dizziness (spinning), no nausea, and fell to the left twice, no LOC, no injury to head or other body part. [place] fine right after. Drove home with her horse trailer and felt fine. 06/18/23: Called her PCP and was told to go to the ED. Went to the ED and was then transferred to [facility] Diagnosed with Left BBB bundle and [...] once daily. Ca Carb-Mag Cmb 11-D3-Zn Sulf [phone] lr-hevf-mu-mg tab Take by mouth once daily. No [...] No noted (more content not included)... Normal [facility] CNOVon 09-24-2023 CNOV Office Visit (KIMBER ) LUMA DAVEY ([id number]) 1955 F Date Time Provider Department 09/24/23 12:30 PM SUSHILA KEANE During your visit today, we recorded the following information about you: Pulse Blood pressure Weight Height 89/minute 144/77 73.9 kg 1.66 m Sushila Keane MD 09/27/2023 9:48 PM Signed [facility] [place] [facility] Department of Cardiovascular Medicine SECTION OF CARDIOVASCULAR IMAGING OUTPATIENT VISIT DATE September 24, 2023 OUTPATIENT VISIT TYPE NEW (>3yr since last seen) CHIEF COMPLAINT: Further evaluation of valve disease HISTORY OF PRESENT ILLNESS: Ms. Davey is a 68 year old female from [place], [place] who presents for follow-up. Since last [...] once daily. Ca Carb-Mag Cmb 11-D3-Zn Sulf [phone] wi-jxce-ck-mg tab Take by mouth once daily. naproxen [...] is a 68 year old female from [place], [place] who presents for follow-up. Since last [...] CONTACT INFORMATION: Sushila Keane MD, PhD, [facility] Computer Aided Draftersql server developer, [facility], Staff, Section of Cardiovascular Imaging, Co-Director Cardio-Oncology Center, Medical Doctor Md/Medical Director of the Echocardiographic Lab, [facility] Dept. Of Cardiovascular Medicine, [address] / [address] [place], [place] [address] Appt: [phone] Referring Provider: SUSHILA KEANE [[id number]] Allergies As of Date: 09/24/2023 (No Known Allergies) Date Reviewed: 09/24/2023 Reviewed by: Javier Ospina MA - Fully Assessed Primary Visit Diagnosis:LBBB (left bundle branch block) [I44.7] Other Visit Diagnoses:Pacemaker [Z95.0] Nonrheumatic mitral valve regurgitation [I34.0] Order(s):CARDIOVASCULAR MEDICINE OP FOLLOW UP APPT ORDER [[id number]] Order #: [id number]: 1 FUTURE Prescriptions as of 09/27/2023 - [...] once daily (more content not included)... Normal [facility] ECG COMPLETEon 09-24-2023 ECG COMPLETE Ventricular Rate : 8 0 BPM Atrial Rate : 80 BPM P-R Interval : 192 ms QRS Duration : 136 ms Q-T Interval : 446 ms QTC Calculation(Bazett) : 514 ms Calculated P [place] : 58 degrees Calculated R [place] : -18 degrees Calculated T [place] : 27 degrees ATRIAL-PACED RHYTHM COMPLETE LEFT BUNDLE BRANCH BLOCK ABNORMAL ECG Confirmed by BABATUNDE WEAVER MD ([id number]) on 10/14/2023 6:43:06 PM NAME : LUMA DAVEY PID : [id number] : 1955 Gender : Female Race : ORD : [id number] Procedure Date : Sep 24 2023 12:35:33 Edit Date : Oct 14 2023 18:43:10 Diagnosis: ATRIAL-PACED RHYTHM COMPLETE LEFT BUNDLE BRANCH BLOCK ABNORMAL ECG Confirmed by BABATUNDE WEAVER MD ([id number]) on 10/14/2023 6:43:06 PM Test Reason : Location : [facility] : [facility] J1-4 Overread By : BABATUNDE WEAVER MD Edited By : BABATUNDE WEAVER MD Referred By : SUSHILA KEANE Acquired by : MONA KRUSE [facility] MR BRAIN WO CONTon 4 MR BRAIN WO CONT MR BRAIN WO [...] George MD on 08/31/2023 7:12 AM Normal [facility] Office Visiton 07-24-2023 Follow-up visit [id number] InLuma mackenzie 1955 F Date Provider Department Center 07/24/2023 [facility] Family History Problem Relation Age of Onset Other Mother Stroke Mother Stroke Father Valvular heart disease Father Atrial fibrillation Father Family Status - Relation Status Age at Mother Father Level of Service:37522 SC OFFICE/OUTPATIENT ESTABLISHED MOD MDM 30 MIN Normal [facility] 30on 06-22-2023 30 The patient is Moderately Stable - Low risk of patient condition declining or worsening The patient's goals for the shift include d/c The clinical goals for the shift include stable VS Problem: Pain - Adult Goal: Verbalizes/displays adequate comfort level or baseline comfort level Outcome: Progressing Flowsheets (Taken 06/22/202330) Verbalizes/displays adequate comfort level or baseline comfort [...] and behaviors that affect risk of falls [place] fall precautions as indicated by assessment Educate patient/family on patient safety, including physical limitations Instruct patient to call for assistance with activity based on assessment Modify environment to reduce risk of injury Consider OT/PT consult to assist with strengthening/mobility Problem: Discharge Planning Goal: Discharge to home or other facility with appropriate resources Outcome: Progressing Flowsheets (Taken 06/22/2023829) Discharge to home or other facility with [...] and hemodynamic stability Outcome: Progressing Flowsheets (Taken 06/22/2023829) Maintains optimal cardiac output and hemodynamic stability: Monitor urine output and notify Licensed Independent Practitioner for values outside of normal range Monitor blood pressure and heart rate Assess for signs of decreased cardiac output Administer fluid and/or volume expanders as ordered Administer vasoactive medications as ordered Problem: Cardiovascular - Adult Goal: Absence of cardiac dysrhythmias or at baseline Outcome: Progressing Flowsheets (Taken 06/22/2023829) Absence of cardiac dysrhythmias or at baseline: Monitor cardiac rate and rhythm Assess for signs of decreased cardiac output Administer antiarrhythmia medication and electrolyte replacement as ordered [facility] Letter (Out)on 06-22-2023 Letter (Out) [id number] Luma Davey 1955 F Date Provider Department Center 06/22/2023 [id number], GENERIC PRO*INIT None No family history on file [facility] 30on 06-21-2023 30 The patient is Moderately Stable - Low risk of patient condition declining or worsening The patient's goals for the shift include comfort The clinical goals for the shift include stable vitals [facility] 30 The patient is Moderately Stable [...] status, cognitive ability or social support system [facility] 30 Routine stress tests Patient information [...] and hemodynamically stable. Full final report from getter welder to follow Shanta Robbins, MSN, QC SCIENTIST Stress Lab Normal [facility] 30 Daily Case Managemen t Update [...] Consultation Consultation and Management 06/19/23 1148 Normal [facility] BASIC METABOLIC PANELon 06-02 Anion gap [Moles/Vol] 8 mmol/L Normal 7-20 [facility] Comment on above: Performed By: #### L AB125 #### [facility] ([employer]) [address] [place] [address] Calcium [Mass/Vol] 9.0 mg/dL Normal 8.6-10.3 [facility] Comment on above: Performed By: #### L AB125 #### [facility] ([employer]) [address] [place] [address] Chloride [Moles/Vol] 109 mmol/L High 98-107 [facility] Comment on above: Performed By: #### L AB125 #### [facility] ([employer]) [address] [place] [address] CO2 [Moles/Vol] 24 mmol/L Normal 21- [facility] Comment on above: Performed By: #### L AB125 #### [facility] [address] [place] [address] Creatinine [Mass/Vol] 1.05 mg/dL Normal 0.60-1.20 [facility] Comment on above: Performed By: #### L AB125 #### [facility] ([facility] [address] [place] [address] GLOMERULAR FILTRATION RATE ML/MIN/1.73 SQ M.PREDICTED 57.9 mL/min/1.73m*2 Low >60.0 [facility] Comment on above: Result Comment: [facility]???s estimated glomerular filtration rate (eGFR) will [...] By: #### L AB125 #### [facility] ([facility] [address] [place] [address] Glucose [Mass/Vol] 108 mg/dL High 70-100 [facility] Comment on above: Performed By: #### L AB125 #### [facility] ([facility] [address] [place] [address] Potassium [Moles/Vol] 4.2 mmol/L Normal 3.5-5.1 [facility] Comment on above: Performed By: #### L AB125 #### [facility] ([facility]) [address] [place] [address] Sodium [Moles/Vol] 137 mmol/L Normal 136-145 [facility] Comment on above: Performed By: #### L AB125 #### [facility] [address] [place] [address] Urea nitrogen [Mass/Vol] 25 mg/dL Normal 7-25 [facility] Comment on above: Performed By: #### L AB125 #### [facility] ([employer]) [address] [place] [address] UREA NITROGEN/CREATININE (MASS RATIO) IN SER/PLAS 23.8 Normal [facility] Comment on above: Performed By: #### L AB125 #### [facility] ([facility] [facility]) [address] [place] [address] CBCon 06-21-2023 Erythrocyte distribution width (RBC) [Ratio] 12.7 % Normal 11.5-15.0 [facility] Comment on above: Performed By: #### L AB125 #### [facility] ([facility]) [address] [place] [address] ERYTHROCYTE MEAN CORPUSCULAR HEMOGLOBIN CONCENTRATION (G/DL) BY AUTOMATED 33.4 g/dL Normal 32.0-35.0 [facility] Comment on above: Performed By: #### L AB125 #### [facility] ([employer]) [address] [place] [address] Hematocrit (Bld) [Volume fraction] 38.6 % Normal 36.0-48.0 [facility] Comment on above: Performed By: #### L AB125 #### [facility] ([facility] [address] [place] [address] Hemoglobin (Bld) [Mass/Vol] 12.9 g/dL Normal 12.0-15.0 [facility] Comment on above: Performed By: #### L AB125 #### [facility] ([facility] [facility]) [address] [place] [address] MCH (RBC) [Entitic mass] 29.4 pg Normal 27.0-33.0 [facility] Comment on above: Performed By: #### L AB125 #### [facility] ([employer]) [address] [place] [address] MCV (RBC) [Entitic vol] 87.9 fL Normal 82.0-98.0 [facility] Comment on above: Performed By: #### L AB125 #### [facility] ([employer]) [address] [place] [address] PLATELETS (10*3/UL) IN BLOOD AUTOMATED COUNT 208 10*3/uL Normal 150-400 [facility] Comment on above: Performed By: #### L AB125 #### [facility] ([facility]) [address] [place] [address] RBC (Bld) [#/Vol] 4.39 10*6/uL Normal 3.80-5.00 [facility] Comment on above: Performed By: #### L AB125 #### [facility] ([facility]) [address] [place] [address] WBC (Bld) [#/Vol] 6.57 10*3/uL Normal 4.00-10.60 [facility] Comment on above: Performed By: #### L AB125 #### [facility] ([facility]) [address] [place] [address] 30on 06-20-2023 30 The patient is Moderately Stable - Low risk of patient condition declining or worsening The patient's goals for the shift include comfort The clinical goals for the shift include stable vitals Normal [facility] 30 Daily Case Managemen t Update [...] Consultation Consultation and Management 06/19/23 1148 Normal [facility] 30 Problem: Pain - Adul t Goal: Verbalizes/displays adequate comfort level or baseline comfort level Outcome: Progressing Flowsheets (Taken 06/20/2023 08) Verbalizes/displays adequate comfort level or baseline comfort [...] falls Assess patient frequently for physical needs [place] fall precautions as indicated by assessment Educate [...] Monitor la (more content not included)... Normal [facility] BASIC METABOLIC PANELon 12-2 Anion gap [Moles/Vol] 9 mmol/L Normal - [facility] Comment on above: Performed By: #### L AB15 #### [facility] ([facility]) [address] [place] [address] Calcium [Mass/Vol] 8.9 mg/dL Normal 8.6-10.3 [facility] Comment on above: Performed By: #### L AB15 #### [facility] ([facility]) [address] [place] [address] Chloride [Moles/Vol] 107 mmol/L Normal 98-107 [facility] Comment on above: Performed By: #### L AB15 #### [facility] ([facility]) [address] [place] [address] CO2 [Moles/Vol] 24 mmol/L Normal 21-31 [facility] Comment on above: Performed By: #### L AB15 #### [facility] ([facility]) [address] [place] [address] Creatinine [Mass/Vol] 1.07 mg/dL Normal 0.60-1.20 [facility] Comment on above: Performed By: #### L AB15 #### [facility] ([facility]) [address] [place] [address] GLOMERULAR FILTRATION RATE ML/MIN/1.73 SQ M.PREDICTED 56.6 mL/min/1.73m*2 Low >60.0 [facility] Comment on above: Result Comment: [facility]???s estimated glomerular filtration rate (eGFR) will [...] individuals. Performed By: #### L AB15 #### [facility] ([facility]) [address] [place] [address] Glucose [Mass/Vol] 104 mg/dL High 70-100 [facility] Comment on above: Performed By: #### L AB15 #### [facility] ([facility]) [address] [place] [address] Potassium [Moles/Vol] 4.1 mmol/L Normal 3.5-5.1 [facility] Comment on above: Performed By: #### L AB15 #### [facility] ([facility]) [address] [address] Sodium [Moles/Vol] 136 mmol/L Normal 136-145 [facility] Comment on above: Performed By: #### L AB15 #### [facility] ([facility]) [address] [place] [address] Urea nitrogen [Mass/Vol] 22 mg/dL Normal 7-25 [facility] Comment on above: Performed By: #### L AB15 #### [facility] ([facility]) [address] [place] [address] UREA NITROGEN/CREATININE (MASS RATIO) IN SER/PLAS 20.6 Normal [facility] Comment on above: Performed By: #### L AB15 #### [facility] ([facility]) [address] [place] [address] CBCon 06-20-2023 Erythrocyte distribution width (RBC) [Ratio] 12.7 % Normal 11.5-15.0 [facility] Comment on above: Performed By: #### L AB125 #### [facility] ([facility]) [address] [place] [address] ERYTHROCYTE MEAN CORPUSCULAR HEMOGLOBIN CONCENTRATION (G/DL) BY AUTOMATED 33.8 g/dL Normal 32.0-35.0 [facility] Comment on above: Performed By: #### L AB125 #### [facility] ([facility]) [address] [place] [address] Hematocrit (Bld) [Volume fraction] 37.9 % Normal 36.0-48.0 [facility] Comment on above: Performed By: #### L AB125 #### [facility] ([facility]) [address] [place] [address] Hemoglobin (Bld) [Mass/Vol] 12.8 g/dL Normal 12.0-15.0 [facility] Comment on above: Performed By: #### L AB125 #### [facility] ([facility]) [address] [place] [address] MCH (RBC) [Entitic mass] 29.7 pg Normal 27.0-33.0 [facility] Comment on above: Performed By: #### L AB125 #### [facility] ([facility]) [address] [place] [address] MCV (RBC) [Entitic vol] 87.9 fL Normal 82.0-98.0 [facility] Comment on above: Performed By: #### L AB125 #### [facility] ([facility]) [address] [place] [address] PLATELETS (10*3/UL) IN BLOOD AUTOMATED COUNT 216 10*3/uL Normal 150-400 [facility] Comment on above: Performed By: #### L AB125 #### [facility] ([facility]) [address] [place] [address] RBC (Bld) [#/Vol] 4.31 10*6/uL Normal 3.80-5.00 [facility] Comment on above: Performed By: #### L AB125 #### [facility] ([facility]) [address] [place] [address] WBC (Bld) [#/Vol] 8.85 10*3/uL Normal 4.00-10.60 [facility] Comment on above: Performed By: #### L AB125 #### [facility] ([facility]) [address] [place] [address] CONSULTon 06-20-2023 CONSULT R [place] Electrophysiology Consult Note Reason for visit: Bradycardia: 2:1 AV block HPI: Luma Davey is a 67 y.o. year old with past medical history of LBBB, MVP with mild MR, palpitations on propanlol, who presents as a transfer from [facility] for symptomatic bradycardia. She has been [...] Murmur: n (more content not included)... Normal [facility] IRON AND TIBCon 06-20-2023 IRON (UG/DL) IN SER/PLAS 20 ug/dL Low 50-212 [facility] Comment on above: Performed By: #### L [id number] #### [facility] ([facility]) [address] [place] [address] IRON BINDING CAPACITY (UG/DL) IN SER/PLAS 386 ug/dL Normal 250-450 [facility] Comment on above: Performed By: #### L [id number] #### [facility] ([facility]) [address] [place] [address] IRON BINDING CAPACITY.UNSATURATE D (UG/DL) IN SER/PLAS 366.0 ug/dL High 155.0-355.0 [facility] Comment on above: Performed By: #### L [id number] #### [facility] ([facility] [address] [place] [address] IRON SATURATION (%) IN SER/PLAS 5 % Low 20-50 [facility] Comment on above: Performed By: #### L [id number] #### [facility] ([facility]) [address] [place] [address] VITAMIN B1on 06-20-2023 VITAMIN B1, PLASMA 21 nmol/L High 4-15 [facility] Comment on above: Result Comment: INTE RPRETIVE DATA: Vitamin B1, Plasma Thiamine (vitamin B1) is reported. However, thiamine diphosphate (TDP), the biologically active form of thiamine, is not found in measurable concentrations in plasma, and is best determined in whole blood specimens. Plasma thiamine concentration reflects recent intake rather than body stores. This test was developed and its performance characteristics determined by [facility]. It has not been cleared or approved by the [place] Food and Drug Administration. This test was performed in a CLIA certified laboratory and is intended for clinical purposes. Performed By: [facility] [address] [place] [address] Electronic Controls Repairer Supervisor: Rocky Claros MD, PhD CLIA Number: [id number] Performed By: #### L AB125 #### [facility] ([facility]) [address] [place] [address] VITAMIN B6on 06-20-2023 VITAMIN B6 32.3 nmol/L Normal 20.0-125.0 [facility] Comment on above: Result Comment: INTE RPRETIVE INFORMATION: Vitamin B6 (Pyridoxal 5-Phosphate) Pyridoxal 5'-phosphate measured in a specimen collected following an 8-hour or overnight fast accurately indicates vitamin B6 nutritional status. Non-fasting specimen concentration reflects recent vitamin intake. This test was developed and its performance characteristics determined by [facility]. It has not been cleared or approved by the [place] Food and Drug Administration. This test was performed in a CLIA certified laboratory and is intended for clinical purposes. Performed By: [facility] [address] [place] [address] Electronic Controls Repairer Supervisor: Rocky Claros MD, PhD CLIA Number: [id number] Performed By: #### L AB120 ####[facility] [place] [address] 30on 06-19-2023 30 The patient is Moderately [...] optimal renal function maintained Outcome: Progressing Normal [facility] 30 The patient is Moderately Unstable [...] including repeat lab results as appropriate Normal [facility] 30 Daily Case Managemen t Update Multidisciplinary rounds have been completed. Barriers to Discharge: Patient transferred from [facility] with dizziness, facial numbness and SOB. [...] Consultation Consultation and Management 06/19/23 1042 Normal [facility] BASIC METABOLIC PANELon - Anion gap [Moles/Vol] 11 mmol/L Normal - [facility] Comment on above: Performed By: #### L AB15 #### [facility] ([employer]) [address] [place] [address] Calcium [Mass/Vol] 8.9 mg/dL Normal 8.6-10.3 [facility] Comment on above: Performed By: #### L AB15 #### [facility] (BEAKER) [address] [place] [id number] Chloride [Moles/Vol] 106 mmol/L Normal 98-107 [facility] Comment on above: Performed By: #### L AB15 #### [facility] ([facility]) [address] [place] [id number] CO2 [Moles/Vol] 23 mmol/L Normal 21-31 [facility] Comment on above: Performed By: #### L AB15 #### [facility] ([facility]) [address] [place] [id number] Creatinine [Mass/Vol] 1.06 mg/dL Normal 0.60-1.20 [facility] Comment on above: Performed By: #### L AB15 #### [facility] ([facility]) [address] [place] [id number] GLOMERULAR FILTRATION RATE ML/MIN/1.73 SQ M.PREDICTED 57.2 mL/min/1.73m*2 Low >60.0 [facility] Comment on above: Result Comment: The [facility]???s estimated glomerular filtration rate (eGFR) will [...] individuals. Performed By: #### L AB15 #### [facility] ([facility]) [address] [place] [id number] Glucose [Mass/Vol] 132 mg/dL High 70-100 [facility] Comment on above: Performed By: #### L AB15 #### [facility] ([facility]) [address] [place] [id number] Potassium [Moles/Vol] 4.1 mmol/L Normal 3.5-5.1 [facility] Comment on above: Performed By: #### L AB15 #### [facility] (BEAKER) [address] [place] [id number] Sodium [Moles/Vol] 136 mmol/L Normal 136-145 [facility] Comment on above: Performed By: #### L AB15 #### [facility] (BEAKER) [address] [place] [address] Urea nitrogen [Mass/Vol] 26 mg/dL High 7-25 [facility] Comment on above: Performed By: #### L AB15 #### [facility] [address] [place] [id number] UREA NITROGEN/CREATININE (MASS RATIO) IN SER/PLAS 24.5 Normal [facility] Comment on above: Performed By: #### L AB15 #### [facility] [address] [place] [id number] CBCon 06-19-2023 Erythrocyte distribution width (RBC) [Ratio] 12.8 % Normal 11.5-15.0 [facility] Comment on above: Performed By: #### L [id number] #### [facility] [address] [place] [id number] ERYTHROCYTE MEAN CORPUSCULAR HEMOGLOBIN CONCENTRATION (G/DL) BY AUTOMATED 33.3 g/dL Normal 32.0-35.0 [facility] Comment on above: Performed By: #### L [id number] #### [facility] [address] [place] [id number] Hematocrit (Bld) [Volume fraction] 37.5 % Normal 36.0-48.0 [facility] Comment on above: Performed By: #### L [id number] #### [facility] (BEAKER) [address] [place] [id number] Hemoglobin (Bld) [Mass/Vol] 12.5 g/dL Normal 12.0-15.0 [facility] Comment on above: Performed By: #### L [id number] #### [facility] (BEAKER) [address] [place] [id number] MCH (RBC) [Entitic mass] 29.5 pg Normal 27.0-33.0 [facility] Comment on above: Performed By: #### L [id number] #### [facility] ([facility]) [address] [address] MCV (RBC) [Entitic vol] 88.4 fL Normal 82.0-98.0 [facility] Comment on above: Performed By: #### L [id number] #### [facility] ([facility]) [address] [place] [id number] PLATELETS (10*3/UL) IN BLOOD AUTOMATED COUNT 233 10*3/uL Normal 150-400 [facility] Comment on above: Performed By: #### L [id number] #### [facility] ([facility]) [address] [place] [id number] RBC (Bld) [#/Vol] 4.24 10*6/uL Normal 3.80-5.00 [facility] Comment on above: Performed By: #### L [id number] #### [facility] ([facility]) [address] [place] [id number] WBC (Bld) [#/Vol] 8.35 10*3/uL Normal 4.00-10.60 [facility] Comment on above: Performed By: #### L [id number] #### [facility] ([facility]) [address] [place] [id number] CONSULTon 06-19-2023 CONSULT --- Attestation signed by [...] her daughter regarding her presentation. EKGs from [facility] and telemetry here show episodes [...] accident/transient ischemic attack. Vijay Sandoval MD, MPH, [facility], [facility], [facility] Interventional Cardiology Pager Email: [email or web address] Cardiology Consult Note Reason for Consult: Bradycardia HPI: Luma Davey is a 67 y.o. 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 Patient states she [...] Value Ventricular Rate 85 Atrial Rate 85 SC Interval 156 QRS DURATION 132 QT Interval 480 QTC CALCULATION(BAZETT) 571 P [place] 68 R-[place] 1 T Wave [place] 34 Impression Normal sinus rhythm Left bundle [...] of BP (more content not included)... Normal [facility] FOLATEon 06-19-2023 FOLATE (NG/ML) IN SER/PLAS 27.00 ng/mL Normal 6.6-1000 [facility] Comment on above: Performed By: #### L AB69 #### [facility] (BEAKER) [address] [place] [address] FOLATE (NG/ML) IN SER/PLAS 29.00 ng/mL Normal 6.6-1000 [facility] Comment on above: Performed By: #### L AB69 ####[facility] (BEAKER)[address] [place] [address] Letter (Out)on 06-19-2023 Letter (Out) [id number] Luma Davey 1955 F Date Provider Department Center 06/19/2023 [id number], GENERIC PRO*INIT None No family history on file Normal [facility] MAGNESIUMon 06-19-2023 Magnesium [Mass/Vol] 1.7 mg/dL Low 1.9-2.7 [facility] Comment on above: Performed By: #### L [id number] #### [facility] (BEAKER) [address] [place] [address] METHYLMALONIC ACID, SERUMon 06-19-2023 METHYLMALONIC ACID, S 0.18 umol/L Normal 0.00-0.40 [facility] Comment on above: Result Comment: INTE RPRETIVE INFORMATION: MMA Serum/Plasma, Vitamin B12 Status This test was developed and its performance characteristics determined by [employer]. It has not been cleared or approved by the US Food and Drug Administration. This test was performed in a CLIA certified laboratory and is intended for clinical purposes. Performed By: [facility] [employer] [address] [place] [address] [employer] Supervisor: Rocky Claros MD, PhD CLIA Number: [id number] Performed By: #### L AB125 #### [facility] ([facility]) [address] [place] [address] TSH3 REFLEX TO FT4on 023 THYROTROPIN (MIU/L) IN SER/PLAS BY DETECTION LIMIT <= 0.05 MIU/L 2.78 mIU/L Normal 0.34-5.60 [facility] Comment on above: Performed By: #### L [id number] ####[facility] ([facility] [place] [address] VITAMIN B1on 06-19-2023 VITAMIN B1, PLASMA 23 nmol/L High 4-15 [facility] Comment on above: Result Comment: INTE RPRETIVE DATA: Vitamin B1, Plasma Thiamine (vitamin B1) is reported. However, thiamine diphosphate (TDP), the biologically active form of thiamine, is not found in measurable concentrations in plasma, and is best determined in whole blood specimens. Plasma thiamine concentration reflects recent intake rather than body stores. This test was developed and its performance characteristics determined by [facility]. It has not been cleared or approved by the US Food and Drug Administration. This test was performed in a CLIA certified laboratory and is intended for clinical purposes. Performed By: [facility] [address] [place] [address] [employer] Supervisor: Rocky Claros MD, PhD CLIA Number: [id number] Performed By: #### L [id number] #### [facility] ([facility]) [address] [place] [address] VITAMIN B12on 06-19-2023 Cobalamin (Vitamin B12) [Mass/Vol] 437 pg/mL Normal 180-914 [facility] Comment on above: Result Comment: REFE RENCE RANGES: 180-914 pg/mL Normal 145-179 pg/mL Indeterminate <145 pg/mL Deficient Performed By: #### L AB125 #### [facility] ([facility]) [address] [id number] VITAMIN B6on 06-19-2023 VITAMIN B6 66.5 nmol/L Normal 20.0-125.0 [facility] Comment on above: Result Comment: INTE RPRETIVE INFORMATION: Vitamin B6 (Pyridoxal 5-Phosphate) Pyridoxal 5'-phosphate measured in a specimen collected following an 8-hour or overnight fast accurately indicates vitamin B6 nutritional status. Non-fasting specimen concentration reflects recent vitamin intake. This test was developed and its performance characteristics determined by [employer]. It has not been cleared or approved by the US Food and Drug Administration. This test was performed in a CLIA certified laboratory and is intended for clinical purposes. Performed By: [facility] [employer] [address] [place] [id number] [employer] Supervisor: Rocky Claros MD, PhD CLIA Number: [id number] Performed By: #### L AB125 #### [facility] (AKER) [address] [place] [id number] CBC AUTO DIFFon 01-12-2022 BASO # 0.0 103/ul Normal 0.0-0.1 [facility] Comment on above: Performed By: #### C BC #### [facility] [address] [place] [address] Dr. Anurag Solano Basophils/100 WBC (Bld) 0.4 % Normal 0.2-2.0 [facility] Comment on above: Performed By: #### C BC #### [facility] [address] [place] [address] Dr. Anurag Solano EO # 0.2 103/ul Normal 0.0-0.7 [facility] Comment on above: Performed By: #### C BC #### [facility] [address] [place] [address] Dr. Anurag Solano Eosinophils/100 WBC (Bld) 2.9 % Normal 0.9-7.0 [facility] Comment on above: Performed By: #### C BC #### [facility] [address] [place] [address] Dr. Anurag Solano Erythrocyte distribution width (RBC) [Ratio] 12.4 % Normal 11.0-15.0 [facility] Comment on above: Performed By: #### C BC #### [facility] [address] [place] [address] Dr. Anurag Solano Hematocrit (Bld) [Volume fraction] 41.0 % Normal 36.0-48.0 [facility] Comment on above: Performed By: #### C BC #### [facility] [address] [place] [address] Dr. Anurag Solano Hemoglobin (Bld) [Mass/Vol] 13.3 g/dL Normal 12.0-16.0 [facility] Comment on above: Performed By: #### C BC #### [facility] [address] [place] [address] Dr. Anurag Solano IG # 0.02 10e3/ul Normal 0.00-0.03 [facility] Comment on above: Performed By: #### C BC #### [facility] [address] [place] [address] Dr. Anurag Solano IG % 0.3 % Normal 0.0-0.5 [facility] Comment on above: Performed By: #### C BC #### [facility] [address] [place] [address] Dr. Anurag Solano LYMPH # 2.2 103/ul Normal 1.2-3.8 [facility] Comment on above: Performed By: #### C BC #### [facility] [address] [place] [address] Dr. Anurag Solano Lymphocytes/100 WBC (Bld) 30.1 % Normal 20.5-60.0 [facility] Comment on above: Performed By: #### C BC #### [facility] [address] [place] [address] Dr. Anurag Solano MANUAL DIFF REQ NO Normal [facility] Comment on above: Performed By: #### C BC #### [facility] [address] [place] [address] Dr. Anurag Solano MCH (RBC) [Entitic mass] 29.8 pg Normal 26.7-34.0 [facility] Comment on above: Performed By: #### C BC #### [facility] [address] [address] [address] Anurag Solano MCHC (RBC) [Mass/Vol] 32.4 g/dL Normal 29.9-35.2 [facility] Comment on above: Performed By: #### C BC #### [facility] [address] [id number] Anurag Solano MCV (RBC) [Entitic vol] 91.7 fL Normal 81.0-99.0 [facility] Comment on above: Performed By: #### C BC #### [facility] [address] [address] [address] Anurag Solano MONO # 0.6 103/ul Normal 0.3-0.8 [facility] Comment on above: Performed By: #### C BC #### [facility] [address] [place] [address] Dr. Anurag Solano Monocytes/100 WBC (Bld) 7.7 % Normal 1.7-12.0 [facility] Comment on above: Performed By: #### C BC #### [facility] [address] [place] [address] Dr. Anurag Solano NEUT # 4.3 103/ul Normal 1.4-6.5 [facility] Comment on above: Performed By: #### C BC #### [facility] [address] [place], [place] [id number] Dr. Anurag Solano Neutrophils/100 WBC (Bld) 58.6 % Normal 43.0-75.0 [facility] Comment on above: Performed By: #### C BC #### [facility] [address] [place], [place] [id number] Dr. Anurag Solano Platelet mean volume (Bld) [Entitic vol] 9.4 fL Critically low 9.5-13.5 [facility] Comment on above: Performed By: #### C BC #### [facility] [address] [place] [address] Dr. Anurag Solano PLT 282 103/ul Normal 150-450 [facility] Comment on above: Performed By: #### C BC #### [facility] [address] [place] [address] Dr. Anurag Solano RBC 4.47 106/ul Normal 4.20-5.40 [facility] Comment on above: Performed By: #### C BC #### [facility] [address] [place] [address] Dr. Anurag Solano WBC 7.3 103/ul Normal 4.0-11.0 [facility] Comment on above: Performed By: #### C BC #### [facility] [address] [place] [address] Dr. Anurag Solano FREE T4on 01-12-2022 Free T4 [Mass/Vol] 0.89 ng/dL Normal 0.76-1.46 [facility] Comment on above: Performed By: #### F T4 #### [facility] [address] [place] [address] Dr. Anurag Solano LIPID PROFILEon 01-12-2022 CHOL-HDL RATIO NORM SEE BELOW Normal [facility] Comment on above: Result Comment: 3.3 - 4.4 LOW RISK 4.4 - 7.1 AVERAGE RISK 7.1 - 11.0 MODERATE RISK >11.0 HIGH RISK Performed By: #### C MP, TSH, LIPID #### [facility] [address] [place] [address] Dr. Anurag Solano Cholesterol [Mass/Vol] 213 mg/dL Critically high <=200 [facility] Comment on above: Performed By: #### C MP, TSH, LIPID #### [facility] [address] [place] [address] Dr. Anurag Solano Cholesterol in HDL [Mass/Vol] 44 mg/dL Normal 40-60 [facility] Comment on above: Performed By: #### C MP, TSH, LIPID #### [facility] [address] [place] [address] Dr. Anurag Solano Cholesterol in LDL [Mass/Vol] 143.2 mg/dL Normal [facility] Comment on above: Performed By: #### C MP, TSH, LIPID #### [facility] [address] [place] [address] Dr. Anurag Solano Cholesterol.total/C holesterol in HDL [Mass ratio] 4.8 {ratio} Normal [facility] Comment on above: Performed By: #### C MP, TSH, LIPID #### [facility] [address] [address] [address] Anurag Solano HDL NORMAL > or = 60 mg/dl - LO W CARDIOVASCULAR RISK <40 mg/dl - HIGH CARDIOVASCULAR RISK Normal [facility] Comment on above: Performed By: #### C MP, TSH, LIPID #### [facility] [address] [address] [address] Anurag Solano LDL CALC NORMAL SEE BELOW Normal [facility] Comment on above: Result Comment: <100 mg/dl OPTIMAL 100 - 129 mg/dl NEAR OR ABOVE OPTIMAL 130 - 159 mg/dl BORDERLINE HIGH 160 - 189 mg/dl HIGH >190 mg/dl VERY HIGH Performed By: #### C MP, TSH, LIPID #### [facility] [address] [address] [address] Anurag Solano Triglyceride [Mass/Vol] 129 mg/dL Normal <=150 [facility] Comment on above: Performed By: #### C MP, TSH, LIPID #### [facility] [address] [address] [address] Anurag Solano VLDL CALC 25.8 mg/dL Normal [facility] Comment on above: Performed By: #### C MP, TSH, LIPID #### [facility] [address] [address] [address] Anurag Solano PROF 14(COMP METB)on 022 Albumin [Mass/Vol] 3.6 g/dL Normal 3.4-5.0 [facility] Comment on above: Performed By: #### C MP, TSH, LIPID #### [facility] [address] [address] [address] Anurag Solano Albumin/Globulin [Mass ratio] 1.1 {ratio} Normal [facility] Comment on above: Performed By: #### C MP, TSH, LIPID #### [facility] [address] [address] [address] Anurag Solano ALP [Catalytic activity/Vol] 107 U/L Normal 46-116 [facility] Comment on above: Performed By: #### C MP, TSH, LIPID #### [facility] [address] [address] [address] Anurag Solano ALT [Catalytic activity/Vol] 19 U/L Normal 14-59 [facility] Comment on above: Performed By: #### C MP, TSH, LIPID #### [facility] [address] [address] [address] Anurag Solano Anion gap [Moles/Vol] 8.3 mmol/L Normal [facility] Comment on above: Performed By: #### C MP, TSH, LIPID #### [facility] [address] [address] [address] Anurag Solano AST [Catalytic activity/Vol] 17 U/L Normal 15-37 [facility] Comment on above: Performed By: #### C MP, TSH, LIPID #### [facility] [address] [place] [address] Dr. Anurag Solano Bilirubin [Mass/Vol] 0.3 mg/dL Normal 0.2-1.0 [facility] Comment on above: Performed By: #### C MP, TSH, LIPID #### [facility] [address] [place] [address] Dr. Anurag Solano Calcium [Mass/Vol] 8.7 mg/dL Normal 8.5-10.1 [facility] Comment on above: Performed By: #### C MP, TSH, LIPID #### [facility] [address] [place] [address] Dr. Anurag Solano Chloride [Moles/Vol] 106 mmol/L Normal 98-107 [facility] Comment on above: Performed By: #### C MP, TSH, LIPID #### [facility] [address] [address] [address] Anurag Solano CO2 [Moles/Vol] 30.3 mmol/L Normal 21.0-32.0 [facility] Comment on above: Performed By: #### C MP, TSH, LIPID #### [facility] [address] [place] [address] Dr. Anurag Solano Creatinine [Mass/Vol] 1.16 mg/dL Critically high 0.55-1.02 [facility] Comment on above: Performed By: #### C MP, TSH, LIPID #### [facility] [address] [place] [address] Dr. Anurag Solano EGFR-AF GREEK 56 mL/min/1.73m2 Critically low >=60 [facility] Comment on above: Performed By: #### C MP, TSH, LIPID #### [facility] [address] [place] [address] Dr. Anurag Solano EGFR-NON AF GREEK 47 mL/min/1.73m2 Critically low >=60 [facility] Comment on above: Performed By: #### C MP, TSH, LIPID #### [facility] [address] [place] [address] Dr. Anurag Solano Globulin (S) [Mass/Vol] 3.3 g/dL Normal [facility] Comment on above: Performed By: #### C MP, TSH, LIPID #### [facility] [address] [place] [address] Dr. Anurag Solano Glucose [Mass/Vol] 105 mg/dL Normal 74-106 [facility] Comment on above: Performed By: #### C MP, TSH, LIPID #### [facility] [address] [place] [address] Dr. Anurag Solano Potassium [Moles/Vol] 4.6 mmol/L Normal 3.5-5.1 [facility] Comment on above: Performed By: #### C MP, TSH, LIPID #### [facility] [address] [place] [address] Dr. Anurag Solano Protein [Mass/Vol] 6.9 g/dL Normal 6.4-8.2 [facility] Comment on above: Performed By: #### C MP, TSH, LIPID #### [facility] [address] [place] [address] Dr. Anurag Solano Sodium [Moles/Vol] 140 mmol/L Normal 136-145 [facility] Comment on above: Performed By: #### C MP, TSH, LIPID #### [facility] [address] [place], [place] [address] Dr. Anurag Solano Urea nitrogen [Mass/Vol] 21.0 mg/dL Critically high 7.0-18.0 [facility] Comment on above: Performed By: #### C MP, TSH, LIPID #### [facility] [address] [place], [place] [address] Dr. Anurag Solano Urea nitrogen/Creatinine [Mass ratio] 18.1 mg/mg Normal [facility] Comment on above: Performed By: #### C MP, TSH, LIPID #### [facility] [address] [place], [place] [address] Dr. Anurag Solano TSHon 01-12-2022 TSH 4.450 uIU/mL Critically high 0.358-3.740 [facility] Comment on above: Performed By: #### C MP, TSH, LIPID #### [facility] [address] [place], [place] [address] Dr. Anurag Solano Basic Metabolic Panelon - Anion gap 8 mmol/L Normal 7-13 [facility] Calcium 10.0 mg/dL Normal 8.6-10.2 [facility] Chloride 103 mmol/L Normal 98-107 [facility] CO2 30 mmol/L Critically high 22-29 [facility] Creatinine 0.88 mg/dL Normal 0.50-0.90 [facility] eGFR (black) mL/min/{1.73_m2} Normal >60 [facility] Comment on above: Result Comment: >60 mL/min/1.73m2 EGFR, calc. for ages 18 and older using theMDRD formula (not corrected for weight), is valid for stablerenal function. eGFR (MDRD) mL/min/{1.73_m2} Normal >60 [facility] Comment on above: Result Comment: >60 mL/min/1.73m2 EGFR, calc. for ages 18 and older using theMDRD formula (not corrected for weight), is valid for stablerenal function. Glucose mass conc 99 mg/dL Normal 74-109 [facility] Potassium molar conc 4.9 mmol/L Normal 3.5-5.1 [facility] Sodium 141 mmol/L Normal 132-144 [facility] Urea nitrogen 22 mg/dL Normal 8-23 [facility] CBC With Platelet No Efee ntialon 09-24-2017 Erythrocyte distribution width Auto Ratio (RBC) 13.2 % Normal 11.5-14.5 [facility] Erythrocytes (RBC) 4.37 10*6/uL Normal 4.20-5.40 [facility] Hematocrit (HCT) 39.9 % Normal 37.0-47.0 [facility] Hemoglobin mass conc (Bld) 13.4 g/dL Normal 12.0-16.0 [facility] MCH 30.6 pg Normal 27.0-31.3 [facility] MCHC mass conc (RBC) 33.5 % Normal 33.0-37.0 [facility] MCV 91.4 fL Normal 82.0-100.0 [facility] Platelets 256 10*3/uL Normal 130-400 [facility] WBC (Leukocytes) 7.3 10*3/uL Normal 4.8-10.8 [facility] Extra Tube, Blood Bankon Bilirubin (total) PATIENT: PETAR VILLALOBOS LOC: [facility],BILL# : [id number] : 1955 SEX: FORDERED BY: SHAKIR FERMIN ORDERED : 09/24/2017 14:13 COLLECTED: 09/24/2017 13:52ORDER : [id number] RECEIVED : 09/24/2017 13:52 TEST NAME RESULT UNITS RANGES ABN FL STExtra Tube, Blood Bank ADEEL F --------- [facility] RBC LRon 09-24-2017 Erythrocytes (RBC) PATIENT: PETAR VILLALOBOS LOC: [facility] BILL# : [id number] : 1955 SEX: FORDERED BY: SHAKIR FERMIN ORDERED : 09/26/2017 13:35 COLLECTED: 09/24/2017 13:52ORDER : [id number] RECEIVED : 09/24/2017 13:52 TEST NAME RESULT UNITS RANGES ABN FL STRBC LR [id number] RBC LR W0 F --------- Normal [facility] [facility] Capture 3 sc rn cellon 09-24-2017 Bilirubin (total) PATIENT: PETAR VILLALOBOS LOC: [facility] BILL# : [id number] : 1955 SEX: FORDERED BY: SHAKIR FERMIN ORDERED : 09/24/2017 11:58 COLLECTED: 09/24/2017 13:52ORDER : [id number] RECEIVED : 09/24/2017 13:52 TEST NAME RESULT UNITS RANGES ABN FL STABORH Capture O POS FAntibody 3 Cell Scrn Captu NEG F --------- Normal [facility] Culture, Urineon 08-10-2017 Culture, Urine ORDERED BY: LINDA SCHILLING: Urine Clean Catch COLLECTED: 08/10/17 14:46ANTIBIOTICS AT ADEEL.: RECEIVED : 08/10/17 15:13Culture, Urine FINAL 08/12/17 07:48 No growth 24 hours Normal [facility] Urinalysis, reflex to micros copicon 08-10-2017 Bilirubin Ql (U) Negative Normal Negative [facility] Urine, clarity CLOUDY Abnormal Clear [facility] Urine, color Yellow Normal Straw/[place] [facility] Urine, glucose presence Negative Normal Negative [facility] Urine, hemoglobin presence LARGE Abnormal Negative [facility] Urine, ketones presence Negative Normal Negative [facility] Urine, leukocyte esterase presence Negative Normal Negative [facility] Urine, nitrite presence Negative Normal Negative [facility] Urine, pH 5.0 [pH] Normal 5.0-9.0 [facility] Urine, protein presence Negative Normal Negative [facility] Urine, specific gravity 1.031 Normal 1.005-1.03 [facility] Urine, urobilinogen 0.2 {Jigar'U}/dL Normal < 2.0 [facility] Urine Microscopicon 08-10-19 18 Urine, bacteria in sediment Many Normal [facility] Urine, epithelial cells presence in sediment 3-5 Normal [facility] Urine, erythrocytes 10-20 Abnormal 0-2 [facility] Urine, leukocytes 0-2 Normal 0-5 [facility] PELVIS 1 OR 2 Son 03-16-20 17 PELVIS 1 [facility] 2 [facility] [address] [place] [address] =====Patient Name: LUMA DAVEY : 1955Sex: FAge: Race: WhiteMRN: [id number]. Location: 84Patient Status: Date: 03/16/2017 11:00:00 AMCompleted Date: 03/16/2017 11:26 AMRequesting Provider: MAXIME OSPINA Attending Provider: Report Copy To: Signs & Symptoms: S32.9XXD Fx unsp parts of lumbosacr spin \EANDE\ pelv, 7thD [id number]: AthenaComments: , , Views (X-RAY, PELVIS): Radiologic Protocol , , , Ordering Provider - MAXIME OSPINA PA-C , Exam: PELVIS 1 OR 2 VWSAccession #: [id number] PELVIS 1 OR 2 VWS 03/16/2017 11:26 [...] before Electronically signed by:Addy Hernandez. Transcribed by: [email or web address], User Resident: Electronically Signed by: ADDY HERNANDEZ @ 03/16/2017 02:12 PM Normal [facility] Comment on above: Order Comment: , , V iews (X-RAY, PELVIS): Radiologic Protocol , , , Ordering Provider - MAXIME OSPINA PA-C , PELVIS 1 OR 2 VWSon 02-24-20 17 PELVIS 1 OR 2 VWS [facility] [address] [place] [address] =====Patient Name: LUMA DAVEY : 1955Sex: FAge: Race: WhiteMRN: [id number]. Location: 84Patient Status: Date: 02/23/2017 9:15:00 AMCompleted Date: 02/23/2017 09:24 AMRequesting Provider: MAXIME OSPINA Attending Provider: Report Copy To: Signs & Symptoms: S32.9XXD Fx unsp parts of lumbosacr spin \EANDE\ pelv, 7thD [id number]: AthenaComments: , , Views (X-RAY, PELVIS): AP , , , Ordering Provider - MAXIME OSPINA PA-C , Exam: PELVIS 1 OR 2 VWSAccession #: [id number] PELVIS 1 OR 2 VWS 02/23/2017 9:24 [...] joints Electronically signed by:Addy Hernandez. Transcribed by: [email or web address], User Resident: Electronically Signed by: ADDY HERNANDEZ @ 02/23/2017 01:09 PM Normal [facility] Comment on above: Order Comment: , , V iews (X-RAY, PELVIS): AP , , , Ordering Provider - MAXIME OSPINA PA-C , PELVIS 1 OR 2 [facility] 01-12-20 PELVIS 1 [facility] 2 [facility] [address] [place] [address] =====Patient Name: LUMA DAVEY : 1955Sex: FAge: Race: WhiteMRN: [id number]. Location: 84Patient Status: Date: 01/11/2017 1:25:00 PMCompleted Date: 01/11/2017 01:31 PMRequesting Provider: MAXIME OSPINA Attending Provider: Report Copy To: Signs & Symptoms: S32.9XXD Fx unsp parts of lumbosacr spin \EANDE\ pelv, 7thD [id number]: AthenaComments: , , Views (X-RAY, PELVIS): Radiologic Protocol , , , Ordering Provider - MAXIME OSPINA PA-C , Exam: PELVIS 1 OR 2 VWSAccession #: [id number] PELVIS 1 OR 2 VWS 01/11/2017 1:31 [...] diastases. Electronically signed by:Aaron Cain. Transcribed by: [email or web address], User Resident: Electronically Signed by: AARON CAIN @ 01/11/2017 03:00 PM Normal [facility] Comment on above: Order Comment: , , V iews (X-RAY, PELVIS): Radiologic Protocol , , , Ordering Provider - MAXIME OSPINA PA-C , Vital Signs Date Time Vital Sign Value Performing Clinician Faci lity 08-02-2023 09:08-0500 Body height 165.1 cm Woo Killian MD Work Phone: [facility] 08-02-2023 09:08-0500 Body mass index (BMI) [Ratio] 27.96 kg/m2 Woo Killian MD Work Phone: [facility] 08-02-2023 09:08-0500 Body weight 76.2 kg Woo Killian MD Work Phone: [facility] 08-02-2023 09:08-0500 Diastolic blood pressure 80 mm[Hg] Woo Killian MD Work Phone: [facility] 08-02-2023 09:08-0500 Heart rate 72 /min Woo Killian MD Work Phone: [facility] 08-02-2023 09:08-0500 Respiratory rate 16 /min Woo Killian MD Work Phone: [facility] 08-02-2023 09:08-0500 Systolic blood pressure 120 mm[Hg] Woo Killian MD Work Phone: [facility] 07-05-2023 13:41-0500 Body height 165.1 cm Woo Killian MD Work Phone: [facility] 07-05-2023 13:41-0500 Body mass index (BMI) [Ratio] 28.87 kg/m2 Woo Killian MD Work Phone: [facility] 07-05-2023 13:41-0500 Body weight 78.7 kg Woo Killian MD Work Phone: [facility] 07-05-2023 13:41-0500 Diastolic blood pressure 80 mm[Hg] Woo Killian MD Work Phone: [facility] 07-05-2023 13:41-0500 Heart rate 88 /min Woo Killian MD Work Phone: [facility] 07-05-2023 13:41-0500 Respiratory rate 16 /min Woo Killian MD Work Phone: [facility] 07-05-2023 13:41-0500 Systolic blood pressure 146 mm[Hg] Woo Killian MD Work Phone: [facility] Encounters Encounter Date Encounter Type Care Provider Facility Start: 01-17-2024 End: 01-17-[address] [facility] Start: 01-14-2024 End: 01-14-2024 ambulatory [facility] Start: 12-31-2023 End: 12-31-2023 ambulatory FABRIZIO Samayoa HARTMANN [facility] Start: 12-25-2023 End: 12-25-2023 ambulatory [facility] Start: 12-25-2023 Encounter for genera l adult medical examination without abnormal findings [facility] Start: 10-05-2023 End: 10-05-2023 ambulatory WOO LERNER Facility:[facility] Start: 09-24-2023 End: 09-25-2023 ambulatory WOO TATE LERNER Facility:[facility] Start: 09-04-2023 Orders Only Woo palomo MD Work Phone: [facility] Start: 08-30-2023 End: 08-31-2023 ambulatory [facility] Start: 08-30-2023 End: 08-30-2023 ambulatory [facility] Start: 08-07-2023 Refill [facility] Start: 08-02-2023 End: 08-02-2023 Office outpatient visit 25 minutes Woo Killian MD Work Phone: [facility] Comment on above: Transient ischemic a ttack (TIA) (Primary Dx); Symptomatic bradycardia; LBBB (left bundle branch block); Facial weakness Start: 08-02-2023 End: 08-02-2023 ambulatory WOO Sellers [facility] Start: 07-24-2023 End: 07-24-2023 ambulatory [facility] Start: 07-05-2023 End: 07-05-2023 ambulatory WOO KILLIAN [facility] Start: 07-05-2023 End: 07-05-2023 Transitional care manage srvc 14 day discharge Woo Killian MD Work Phone: [facility] Comment on above: Symptomatic bradycar frances (Primary Dx); MVP (mitral valve prolapse); LBBB (left bundle branch block) Start: 07-04-2023 ambulatory PAN LINDSE[facility] Start: 06-22-2023 Evaluation and manag ement of inpatient [facility] Start: 06-21-2023 Evaluation and manag ement of inpatient SOM [facility] Start: 06-19-2023 Evaluation [facility] ement [facility] Start: 06-19-2023 End: 06-22-2023 Evaluation and management of inpatient [facility] Start: 01-12-2022 End: 01-13-[address] WOO KILLIAN Facility: Start: 09-29-2020 End: 09-03-2020 Patient encounter procedure Sabrina Caceres Work Phone: [facility] Work Phone: Start: 09-03-2020 End: 09-03-2020 Patient encounter procedure Ruthie Smiley Work Phone: [facility] Work Phone: Start: 09-27-2017 End: 09-27-2017 Ambulatory TARPATSY Goss [facility] Start: 09-24-2017 End: 09-29-2017 Ambulatory TAREK A MYCHALK Ana Paula [facility] Start: 05-02-2017 End: 06-01-2017 Ambulatory MAXIME OSPINA [...] TAREK DBOUK Start: 09-24-2017 TYPE AND SCREEN TARPATSY Kelly [facility] Start: 09-24-2017 EKG 12-LEAD TAREK DBOU K Start: 08-01-2017 Mammography Woo torres MD Work Phone: Plan of Treatment Date Care Activity Detail Author Start: 03-31-2029 DTaP,Tdap and Td Vaccines (3 - Td or Tdap) DTaP,Tdap and Td Vaccines (3 - Td or Tdap) [facility] Start: 08-29-2024 Adult BMI Screening Adult BMI Screen ing [facility] Start: 08-29-2024 Tobacco Screening Tobacco Screening [facility] Start: 08-02-2024 Adult BMI Screening Adult BMI Screen ing [facility] Start: 08-02-2024 Depression Screening Depression Scre ening [facility] Start: 08-02-2024 Fall Risk Screening Fall Risk Screen ing [facility] Start: 08-02-2024 Tobacco Screening Tobacco Screening [facility] Start: 07-05-2024 Adult BMI Screening Adult BMI Screen ing [facility] Start: 07-05-2024 Depression Screening Depression Scre ening [facility] Start: 07-05-2024 Fall Risk Screening Fall Risk Screen ing [facility] Start: 07-05-2024 Tobacco Screening Tobacco Screening [facility] Start: 12-25-2023 End: 12-25-2023 Patient encounter procedure 12/25/2023 11:00 AM EDT Office Visit [facility] [address] [facility] [place] [id number] Woo Killian MD [address] [place], [place] [id number] [facility] Start: 12-21-2023 Medicare Annual Wellness Visit Medicare Annual Wellness Visit [facility] Start: 08-30-2023 End: 08-30-2023 Patient encounter procedure [facility] Start: 08-30-2023 Subsequent hospital visit by physician 08/30/2023 1:15 PM EST Hospital Encounter [facility] [address] [facility] [place] [id number] [facility] Start: 08-02-2023 End: 08-02-2024 Holter monitor study Holter monitor 24-48 hour Cardiac Services Routine Symptomatic bradycardia LBBB (left bundle branch block) Expected: 08/02/2023, Expires: 08/02/2024 [facility] Comment on above: Expected: 08/02/2023 , Expires: 08/02/2024 Start: 08-02-2023 End: 08-02-2024 MR Brain WO contrast MR brain without contrast Imaging Routine Transient ischemic attack (TIA) Expected: 08/02/2023, Expires: 08/02/2024 [facility] Comment on above: Expected: 08/02/2023 , Expires: 08/02/2024 Start: 08-02-2023 End: 08-02-2024 US Carotid arteries - bilateral Vas carotid duplex bilateral Vascular Ultrasound Routine Transient ischemic attack (TIA) Facial weakness Expected: 08/02/2023, Expires: 08/02/2024 [facility] Comment on above: Expected: 08/02/2023 , Expires: 08/02/2024 Start: 08-02-2023 End: 08-02-2023 Patient encounter procedure 08/02/2023 9:30 AM EST Office Visit [facility] [address] [place] [address] Woo Killian MD [address] [place] [address] [facility] Start: 09-29-2020 2nd Dose- COVID Vaccine [facility] Work Phone: Start: 08-01-2018 Screening for malignant neoplasm of breast Mammogram [facility] Start: 1972 Adult BMI Follow Up Plan Adult BMI Follow Up Plan [facility] Immunizations Immunization Date Immunization Notes Care Provider Fa cility 06-18-2023 RSV, recombinant, protein subunit RSVpreF, adjuvant reconstituted, 0.5 mL, PF Woo Killian MD Work Phone: [facility] 05-16-2023 Influenza Vaccine, Quadrivalent, Adjuvanted Woo Killian MD Work Phone: [facility] 06-20-2022 Covid-19, Mrna, Lnp- s, Bivalent, Pf, 50mcg/0.5ml or 25mcg/0.25ml Woo Killian MD Work Phone: [facility] 03-05-2022 Influenza, High-dose , Quadrivalent Woo Killian MD Work Phone: [facility] 03-05-2022 pneumococcal polysaccharide vaccine, 23 valent Woo Killian MD Work Phone: [facility] 03-05-2022 pneumococcal vaccine , unspecified formulation Woo Killian MD Work Phone: [facility] 04-12-2021 Influenza Vaccine, Quadrivalent, Adjuvanted Woo Killian MD Work Phone: [facility] 04-12-2021 influenza virus vacc ine, unspecified formulation Woo Killian MD Work Phone: [facility] 09-29-2020 2nd Dose MODERNA COVID-19 Vaccine; Translations: [Moderna COVID-19 Vaccine] [facility] Work Phone: Comment on above: Note: Patient tolera meli well. No signs or symptoms of adverse reactions. Patient waited a minimum of 15 minutes. 09-03-2020 2nd Dose MODERNA COVID-19 Vaccine; Translations: [Moderna COVID-19 Vaccine] [facility] Comment on above: Note: Patient tolera meli well. No signs or symptoms of adverse reactions. Patient waited a minimum of 15 minutes. 03-29-2020 Influenza Vaccine, Quadrivalent, Adjuvanted Woo Killian MD Work Phone: [facility] 03-29-2020 zoster vaccine recombinant Woo Killian MD Work Phone: [facility] 07-20-2019 zoster vaccine recombinant Woo Killian MD Work Phone: [facility] 03-31-2019 influenza, injectabl e, quadrivalent, preservative free Woo Killian MD Work Phone: [facility] 03-31-2019 pneumococcal conjuga te vaccine, 13 valent Woo Killian MD Work Phone: [facility] 03-31-2019 tetanus toxoid, redu francisco diphtheria toxoid, and acellular pertussis vaccine, adsorbed Woo Killian MD Work Phone: [facility] 04-22-2018 influenza, injectabl e, quadrivalent, preservative free Woo Killian MD Work Phone: [facility] 06-11-2017 influenza, injectabl e, quadrivalent, preservative free Woo Killian MD Work Phone: [facility] 06-19-2015 influenza, seasonal, injectable, preservative free [facility]oo Kill[facility] 09-12-2011 tetanus toxoid, redu francisco diphtheria toxoid, and acellular pertussis vaccine, adsorbed Woo Killian MD [facility] 04-14-2010 pneumococcal polysaccharide vaccine, 23 valent [facility]oo [facility] P[facility] Date Payer Category Payer Medicare [facility] MED[facility] MED[facility] ADV[facility] [id number] 2019-Present [phone] [address] [place] [address] [id number] 2017 Unknown [id number] 1959 Unknown [id number] 1955 Unknown [id number] 1955 Unknown [id number] 6 1955 Unknown [id number] 6 1955 Unknown [id number] 6 1955 Unknown [id number] 6 1955 Unknown [id number] 6 1955 Unknown [id number] 6 1955 Unknown [id number] 6 Social History Date Type Detail Facility Tobacco smoking status Unknown i f ever smoked [facility] Work Phone: Start: 01-10-2023 [facility] History of tobacco use Current smoker [facility] History of tobacco use Cigarette Smoker P [facility] Start: 01-10-2023 Tobacco use and exposure Smoke less tobacco non-user [facility] Start: 07-05-2023 End: 08-30-2023 Alcohol intake Current drinker of alcohol (finding) [facility] Start: 07-22-2020 End: 07-05-2023 Alcohol intake [facility] Start: 05-25-2020 End: 07-22-2020 Alcohol Use Disorder Identification Test - Consumption [AUDIT-C] [facility] Frequency of Alcohol Consumption 2-3 times a week [facility] Start: 01-10-2023 Tobacco Comment Casual smoker, less than a pack a week [facility] Start: 1955 Sex Assigned At Not on file P [facility] Medical Equipment Procedure Code Equipment Code Equipment Origin al Text Equipment Identifier Dates Cardiac pacemaker, device (physical object) ([id number]) Pacemaker-06/19/20 23 [id number] Start: 06-19-2023 Comment on above: Description: [place]IA LANTIGUA Clinical Notes 06-19-2023 to 01-14-2024 Telephone Encounter - Rody García LPN - 08/07/2023 7:37 AM ESTTelephone Encounter - Rody García LPN - 08/07/2023 7:37 AM Piyush Killian MD - 08/02/2023 9:30 AM EST Note Date & Type Note Facility 01-14-2024 Note [facility] Note Reason for cardiology visit patient here for 6 mo follow up symptomatic bradycardia s/p PPM, MVP, and chronic LBBB. Chief Complaint: Minor chest pain HPI: Luma Davey is a 68 y.o. 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 The patient is here today for follow-up visit. She states that she has been doing very well. She is very active and recently she was helping her daughter to move her house and after moving heavy stuff she had a little chest pain lasted only for couple minutes but she resumed the work after that without any other symptoms. She is very active. She rides a horse about 5 miles at least couple times a week. She takes care of the horses and of her house. She denies any chest pain or shortness of breath at rest or with exertion. She denies orthopnea or paroxysmal nocturnal dyspnea or dizziness or palpitations or legs edema. Review of Systems All other systems reviewed and are negative. Past Medical History She has a past medical history of Abnormal ECG, AV block, and Bradycardia. Surgical History She has a past surgical history that includes CTA Chest W IV Contrast (10/24/2016); Insert / replace / remove pacemaker; Pelvic fracture surgery; Tubal ligation; and Wrist surgery. Social History She reports that she has never smoked. She has never used smokeless tobacco. She reports that she does not currently use alcohol. No history on file for drug use. Family History Family History Problem Relation Name Age of Onset Other (pacemaker) Mother Stroke Mother Stroke Father Valvular heart disease Father Atrial fibrillation Father Allergies Patient has no known allergies. Medications Current Outpatient Medications: escitalopram (Lexapro) 10 mg tablet, Take 10 mg by mouth in the morning., Disp: , Rfl: Myrbetriq 50 mg tablet extended release 24 hr, , Disp: , Rfl: naproxen (Naprosyn) 500 mg tablet, Take 500 mg by mouth twice a day., Disp: , Rfl: pantoprazole (ProtoNix) 40 mg EC tablet, Take 1 tablet by mouth in the morning., Disp: , Rfl: Last Recorded Vitals Visit Vitals LMP (LMP Unknown) OB Status Postmenopausal Smoking Status Never Physical Examination: GENERAL: alert and oriented x3, well developed, in no acute distress. HEAD: atraumatic, normocephalic. EYES: JACQUELINE, EOMI. NECK: trachea midline, no JVD present, no carotid bruits present. CARDIAC: S1, S2 present. RRR. No murmur, rubs, or gallops. RESPIRATORY: CTAB, no increased effort of breathing, no rales, rhonchi, or wheezing. ABDOMEN: soft, nontender, nondistended. EXTREMITIES: no lower extremity edema, peripheral pulses are 2+ bilaterally. No rash/skin discoloration present. NEURO: strength/sensation equal and symmetric in bilateral upper and lower extremities. PSYCH: appropriate mood, affect, and judgement. Labs: CBC: Lab Results Component Value Date WBC 6.57 06/21/2023 RBC 4.39 06/21/2023 HGB 12.9 06/21/2023 HCT 38.6 06/21/2023 MCV 87.9 06/21/2023 RDW 12.7 06/21/2023 PLT 208 06/21/2023 PT/INR No results found for: PT , INR BMP: Lab Results Component Value Date NA 137 06/21/2023 K 4.2 06/21/2023 CL 109 (H) 06/21/2023 BUN 25 06/21/2023 CREATININE 1.05 06/21/2023 EGFR 57.9 (L) 06/21/2023 Lipids and LFTs: 07/17/2017 cholesterol 219, triglyceride 124, HDL 55, LDL 139, AST 26, ALT 30, alk phos 91, total bilirubin 0.4, total protein 7.1 TSH: Lab Results Component Value Date TSH 2.78 06/19/2023 HBA1c: No results found for: HGBA1C BNP: No results found for: BNP Last Images: Echo 06/19/2023 Left Ventricle: The left ventricle is normal [...] for opacification and better delineation of endocardial border Routine treadmill only stress test 06/21/2023 Reduced HR response and AV conduction abnormalities, Submaximal exercise test and Inconclusive for ischemia due to LBBB. Chronotropic index=24%. Electrophysiology procedure 06/21/2023 PROCEDURE PERFORMED: 1. Implantation of pacemaker (Biotronik) 2. Ultrasound guided venous access INDICATIONS: 1. AV block (2:1 block) === 10/23/16 === CT CHEST ANGIO W AND WO IV CONTRAST - Impression - * No CT evidence of intrathoracic trauma. * Mild bibasi (more content not included)... [facility] 10-05-2023 Note HNO ID: [id number] Author: CELI RODRIGUES MD, PhD Service: ? Author Type: Physician Type: Progress Notes Filed: 10/05/2023 12:38 Note Text: [facility] Initial Consultation requested by Woo Lerner Consultation requested by Dr. Killian for an opinion regarding TIA. My final recommendations will be communicated back to the requesting physician by way of shared Medical record or letter to requesting physician via US mail. PCP Woo Lerner MD [address] [facility] [id number] [phone] CEREBROVASCULAR HIST[facility] Luma Davey is a very [...] detected 06/16/23: [facility]. Once she had loaded the horse, she had new onset dizziness (spinning), no nausea, and fell to the left twice, no LOC, no injury to head or other body part. [place] fine right after. Drove home with her horse trailer and felt fine. 06/18/23: Called her PCP and was told to go to the ED. Went to the ED and was then transferred to [facility] Diagnosed with Left BBB bundle and [...] once daily. Ca Carb-Mag Cmb 11-D3-Zn Sulf [phone] al-gqny-ac-mg tab Take by mouth once daily. No [...] drift Sensation: int (more content not included)... [facility] 09-24-2023 Note HNO ID: [id number] Author: SUSHILA KEANE MD Service: ? Author Type: Physician Type: Progress Notes Filed: 09/27/2023 21:48 Note Text: [facility] [place] Dash Bach Department of Cardiovascular Medicine SECTION OF CARDIOVASCULAR IMAGING OUTPATIENT VISIT DATE September 24, 2023 OUTPATIENT VISIT TYPE NEW (>3yr since last seen) CHIEF COMPLAINT: Further evaluation of valve disease HISTORY OF PRESENT ILLNESS: Ms. Davey is a 68 year old female from [place], [place] who presents for follow-up. Since last [...] once daily. Ca Carb-Mag Cmb 11-D3-Zn Sulf [phone] qx-mofh-oz-mg tab Take by mouth once daily. naproxen [...] is a 68 year old female from [place], [place] who presents for follow-up. Since last [...] CONTACT INFORMATION: Sushila Keane MD, PhD, [facility] Computer Aided Draftersql server developer, [facility], Staff, Section of Cardiovascular Imaging, Co-Director Cardio-Oncology Center, Medical Doctor Md/Medical Director of the Echocardiographic Lab, Dash Bach Dept. Of Cardiovascular Medicine, [address] / [address] [place] [id number] Appt: [phone] [facility] 08-07-2023 Miscellaneous Notes Fax received from [employer] requesting refill of Escitalopram [facility] Telephone encounter Note Fax received from [employer] requesting refill of Esc[facility]ram [facility] History of Present illness Narrative Images from the original note were not included. [address] [facility] [id number] SUBJECTIVE: Patient ID: Luma [...] brain Holter monitor documented in this encounter [facility] 07-24-2023 Note [place] Electrophysiology Consult Note Reason for visit: bradycardia/2:1 [...] propanlol, who presents as a transfer from [facility] for symptomatic bradycardia. She has been [...] [] acetaminophen (T (more content not included)... [facility] 07-24-2023 Note Patient here for [facility] for bradycardia. She had PPM implant on 06/[address] Lindsey. She feels good s/p implant, with palpitations resolving. She has seen [facility] and [facility] in the past. Still has apt with [facility] in August 2023. Denies chest pain, SOB, and lightheadedness. Review of Systems All other systems reviewed and are negative. [facility] 07-05-2023 History of Present illness Narrative Images from the original note were not included. [address] [place] [id number] SUBJECTIVE: Transition of Care Additional Questions/Concerns [...] Date of Interactive Contact and Name of Travel Agent: Spoke with Luma on 06/26/23 Medication Review Completed: [...] [facility] Center on 07/04/2023 Specialty: Cardiology- @ [place] office 07/24/23 @ 1:40 Specialty: Review of Pending Lab/Diagnostic Tests and Plan for Completion: 06/21/23: Implantation of pacemaker (Biotronik) Patient went to [place] ER on 06/24/23 for CP/severe heart burn. [...] you have signs of a heart attack; sql server developer CP, chest pressure, difficulty breathing, pain in arms, back or jaw, feeling faint or dizzy, and fast or irregular heartbeat. -CN contact information, Nela Phillips RN, can be reached at [phone] and will follow for a minimum of [...] cardiology Serial BP documented in this encounter [facility] 06-22-2023 Note Occupational Therapy Occupational Therapy Evaluation Patient Name: Luma [facility] : 1955 Today's Date: 06/22/2023 Time in:1105 Time out: 15588 Present Illness History: 67 y/o F presented to [facility] ED from [place] for management of cardiac needs. Patient found [...] Level of Function Prior Function Level of [place]: Independent with ADLs and functional transfers, Independent [...] comments: Patient comp (more content not included)... [facility] 06-22-2023 Note Hospital Medicine Discharge Summary [...] to have bradycardia. She was transferred to [facility] to be evaluated by cardiology. They reviewed her EKGs from [facility] and telemetry in our hospital [...] the symptoms are not related to central QC SCIENTIST pathology. She had an echocardiogram which was [...] Medications These medications were sent to [facility] - [address] [place] [address] [facility] [place] [address], [facility] [address] acetaminophen 500 mg tablet amoxicillin-pot clavulanate 875-125 [...] was 35 minutes. Signed Austyn Lyons MD [facility] Medicine 06/22/2023 11:38 AM [facility] 06-22-2023 Note [facility] CARDIOLOGY INPAT IENT [...] diarrhea/vaginal yeast infection. Tele: mostly paced, occasional [place] beats ALLERGIES No Known Allergies CURRENT MEDS [...] Medications These medications were sent to [facility] - [place], [place] - [address] [place] [address] [place] [address], [facility] [address] acetaminophen 500 mg tablet amoxicillin-pot clavulanate 875-125 [...] ???F) Temporal 87 19 95 % -- 06/21/23 2000 138/71 -- -- 76 16 95 % [...] Encounter Date: 06/19/23 (more content not included)... [facility] 06-21-2023 Note DUAL CHAMBER PACEMAK ER IMPLANT PROCEDURE NOTE DATE OF PROCEDURE: 06/21/23 PERFORMING PHYSICIAN: Dr. Pan Lindsey FLOOR BROKER: Dr Angella Silver CONSENT: Patient LOCATION: EP [...] propanlol, who presents as a transfer from [facility] for symptomatic bradycardia. She has been [...] using modified seldinger technique using a 5 Guyanese micro-puncture needle on two occasions and 0.35 [...] for the device above the muscle. 6 Guyanese Safesheaths were placed over the wire. An active fixation Biotronik pacing lead was then delivered through the 6Fsheath tothe right ventricle. After confirmation of lead position on orthogonal views ([place] and [place]) to confirm septal position, the screw was [...] lead position on orthogonal views ([place] and [place]), the screw was activated. Good sensing parameters, [...] any concerns. Pan Lindsey MD Cardiac Electrophysiology [facility] 06-21-2023 Note Patient: Luma Davey Procedure Information Date/Time: 06/21/23 1530 Procedure: Implant PPM - biventricular Location: [facility] [address] FLUSHER DRIVER 1 EP / [facility] (Cath) Providers: Pan Lindsey MD Clinical information reviewed: Tobacco Allergies Meds Med Hx Surg Hx Fam Hx Soc Hx Physical Exam Airway Mallampati: II TM distance: >3 FB Neck ROM: full Cardiovascular Dental Pulmonary Abdominal Anesthesia Plan ASA 3 Anesthetic plan and risks discussed with patient. Use of blood products discussed with patient who. Additional Equipment Requests [facility] 06-21-2023 Note Hospital Medicine Daily Progress Note - 06/21/2023 10:57 AM; Room: [address] [place] [address] Admission: 06/19/2023 10:34 AM; Length of stay: 2 days THE HOSPITALIST TEAM PREFERS TO USE [employer] CHAT FOR COMMUNICATION 7AM-7PM. IF I DO NOT RESPOND WITHIN 15 MINUTES, PLEASE PAGE ME/CALL THROUGH THE PARKING ENFORCER. FROM 7PM-7AM, PLEASE PAGE [phone](COVR) Code Status: Full Code Barriers to Discharge: [...] 2.78 06/19/2023 Lab Results Component Value Date [id number] 06/19/2023 IRON 20 (L) 06/20/2023 TIBC 386 06/20/2023 Imaging ECG 12 lead Normal sinus rhythm Left bundle branch block Abnormal ECG No previous ECGs available Confirmed by Pan Lindsey ([id number]) on 06/19/2023 6:24:21 PM Complete Echo (TTE) w/wo Imaging Agent, Strain, 3D, Bubble Study 1 1 [facility] Heart Station [address] [place] [address] [phone] (fax) Echocardiogram-[facility] Name: LUMA [...] LVSVI, 2D 17 (more content not included)... [facility] 06-21-2023 Note Cardiology Progress Note Subjective Subjective: Luma Davey is a 67 y.o. 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 Patient states she [...] no acute distress. HEAD: Atraumatic, normocephalic. EYES: JACQUELIEN, EOMI. NECK: No JVD present. CARDIAC: RRR. No murmur, rubs, or gallops. RESPIRATORY: CTAB, no increased effort of breathing. ABDOMEN: Soft, nontender, nondistended. EXTREMITIES: No lower extremity edema, peripheral pulses are 2+ bilaterally. NEURO: No focal deficits Relevant Lab Results Encounter Date: 06/19/23 ECG 12 lead Result Value Ventricular Rate 85 Atrial Rate 85 SC Interval 156 QRS DURATION 132 QT Interval 480 QTC CALCULATION(BAZETT) 571 P [place] 68 R-[place] 1 T Wave [place] 34 Impression Normal sinus rhythm Left bundle branch block Abnormal ECG No previous ECGs available Confirmed by Pan Lindsey ([id number]) on 06/19/2023 6:24:21 PM No results found for: CKTOTAL , CKMB , CKMBINDEX , TROPONINI Complete Echo (TTE) w/wo Imaging Agent, Strain, 3D, Bubble Study Result Date: 06/19/2023 1 1 [facility] Heart Station [address] [address] [phone] (fax) Echocardiogram-[facility] Name: LUMA [...] Valve Label Value (more content not included)... [facility] 06-20-2023 Note Hospital Medicine Daily Progress Note - 06/20/2023 12:45 PM; Room: [address] [place] [address] Admission: 06/19/2023 10:34 AM; Length of stay: 1 days THE HOSPITALIST TEAM PREFERS TO USE [employer] FOR COMMUNICATION 7AM-7PM. IF I DO NOT RESPOND WITHIN 15 MINUTES, PLEASE PAGE ME/CALL THROUGH THE PARKING ENFORCER. FROM 7PM-7AM, PLEASE PAGE [phone](COVR) Code Status: Full Code Barriers to Discharge: [...] 2.78 06/19/2023 Lab Results Component Value Date [id number] 06/19/2023 Imaging ECG 12 lead Normal sinus rhythm Left bundle branch block Abnormal ECG No previous ECGs available Confirmed by Pan Lindsey ([id number]) on 06/19/2023 6:24:21 PM Complete Echo (TTE) w/wo Imaging Agent, Strain, 3D, Bubble Study 1 1 [facility] Heart Station [address] [place] [address] [phone] (fax) Echocardiogram-[facility] Name: LUMA [...] Label Value N (more content not included)... [facility] 06-20-2023 Note Attestation signed by Trudi Whipple MD at 06/20/2023 2:03 PM Case discussed with EXTRUDER OPERATOR. Do not bill level of service. Primary to call back if they need a full consult. Trudi Whipple MD On 06/20/2023- Neurology Team and Stroke Team were asked by Primary service about Pt c/o Alis oral numbness for 1-2 week. Family and Pt concerned it was a neurological issues. Neurology EXTRUDER OPERATOR discussed issue with Neurology Attending and Stroke [...] negative for acute intracranial abnormalities. Maral Mosqueda [facility] Neurology Inpatient EXTRUDER OPERATOR [facility] 06-20-2023 Note Attestation signed by Vijay Sandoval MD at 06/20/2023 1:24 PM I personally saw and examined the patient on the same date of service as resident/fellow Dr eMsa. I discussed the findings and therapeutic plan [...] performed tomorrow 06/21/2023 Vijay Sandoval MD, MPH, FACC, [facility], [facility] Interventional Cardiology Pager Email: [email or web address] Cardiology Progress Note Subjective Subjective: Luma Davey is a 67 y.o. 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 Patient states she [...] Value Ventricular Rate 85 Atrial Rate 85 SC Interval 156 QRS DURATION 132 QT Interval 480 QTC CALCULATION(BAZETT) 571 P [place] 68 R-[place] 1 T Wave [place] 34 Impression Normal sinus rhythm Left bundle branch block Abnormal ECG No previous ECGs available Confirmed by Pan Lindsey ([id number]) on 06/19/2023 6:24:21 PM No results found for: CKTOTAL , CKMB , CKMBINDEX , TROPONINI Complete Echo (TTE) w/wo Imaging Agent, Strain, 3D, Bubble Study Result Date: 06/19/2023 1 1 [facility] Heart Station [address] [place] [address] [phone] (fax) Echocardiogram-[facility] Name: LUMA [...] septum is abnorm (more content not included)... [facility] 06-19-2023 Note Hospital Medicine History and Physical 06/19/2023 12:31 PM THE HOSPITALIST TEAM PREFERS TO USE [employer] CHAT FOR COMMUNICATION 7AM-7PM. IF I DO NOT RESPOND WITHIN 15 MINUTES, PLEASE PAGE ME/CALL THROUGH THE PARKING ENFORCER. FROM 7PM-7AM, PLEASE PAGE [phone](COVR) Chief Complaint No chief complaint on file. [...] this hospital stay by a member of [facility] Medicine. Past Medical History History reviewed. No pertinent past medical history. Past Surgical History Past Surgical History (more content not included)... [facility] Evaluation note Diagnosis Symptomatic bradycardia- Primary MVP (mitral valve prolapse) Mitral valve disorders LBBB (left bundle branch block) Other left bundle branch block documented in this encounter [facility] redIT SystemEvaluation note* Diagnosis Transient ischemic attack (TIA)- Primary Unspecified transient cerebral ischemia Symptomatic bradycardia LBBB (left bundle branch block) Other left bundle branch block Facial weakness documented in this encounter [facility] redIT SystemInstructionsNot on filedocumented in this encounter [facility] redIT SystemInstructions* Attachments The following attachments cannot be sent through Care Everywhere. 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) documented in this [facility] SystemInstructionsNot on file documented in this encounterProCle[facility] redIT SystemInstructionsNot on file documented in this encounterW[facility] Summary Purpose Family History No [...] Specialty Diagnoses / Procedures Referred By Farhana t Referred To Contact Diagnoses Transient ischemic attack (TIA) Facial weakness Procedures Vas carotid duplex bilateral Woo Killian MD [address] [place] [address] Referral ID Status Reason Start Date Expiration Date V isits Requested Visits Authorized [id number] Pending Review 08/02/2023 08/01/2024 1 1 Specialty Diagnoses / Procedures Referred By Farhana t Referred To Contact Diagnoses Symptomatic bradycardia LBBB (left bundle branch block) Procedures Holter monitor 24-48 hour Woo Killian MD [address] [place] [address] Referral ID Status Reason Start Date Expiration Date V isits Requested Visits Authorized [id number] Pending Review 08/02/2023 08/01/2024 1 1 Specialty Diagnoses / Procedures Referred By Farhana t Referred To Contact Radiology Diagnoses Transient ischemic attack (TIA) Procedures MR brain without contrast Woo Killian MD [address] [place] [address] Referral ID Status Reason Start Date Expiration Date V isits Requested Visits Authorized [id number] Pending Review 08/02/2023 08/01/2024 1 1 Assessments Findings Encounter Date Encounter for Immunization 1st COVID Vaccine carolann Smiley PharmD 09/03/2020 Findings Encounter Date Encounter for Immunization 2nd Dose- COV ID Vaccine with Sabrina aCceres PharmD 09/29/2020 Encounter for Immunization 1st COVID [...] section and content) DATE CREATED AUTHOR 12/20/2017 [facility] DATE CREATED AUTHOR AUTHOR'S ORGANIZ ATION 12/24/2017 [facility] DATE CREATED AUTHOR AUTHOR'S ORGANIZ ATION 12/28/2017 [facility] DATE CREATED AUTHOR AUTHOR'S ORGANIZ ATION 01/18/2022 [facility] DATE CREATED AUTHOR AUTHOR'S ORGANIZ ATION 09/02/2023 [facility] DATE CREATED AUTHOR AUTHOR'S ORGANIZ ATION 10/14/2023 [facility] DATE CREATED AUTHOR AUTHOR'S ORGANIZ ATION 01/01/2024 [facility] DATE CREATED AUTHOR AUTHOR'S ORGANIZ ATION 01/18/2024 [facility] Medical History (unrecognize d section and [...] Care Teams (unrecognized sec tion and content) Ship'S Pilot Relationship Specialty Start Date End Date Woo Killian MD [address] [place] [address] PCP - General Family Medicine 12/25/16 Ship'S Pilot Relationship Specialty Start Date End Date Woo Killian MD [address] [place] [address] PCP - General Family Medicine 12/25/16 Ship'S Pilot Relationship Specialty Start Date End Date Woo Killian MD [address] [place] [address] PCP - [facility] 12/25/16 Ship'S Pilot Relationship Specialty Start Date End Date Woo Killian MD [address] [place], [place] [id number] PCP - General Family Medicine 12/25/16 FOR RECORDS PERTAINING TO PATIENTS WHO [...] BE BASED ON THE PRIMARY CLINICAL RECORDS. [facility]. provides no warranty or guarantee of the accuracy or completeness of information in this document.
== END 2024-01-29 07:08 | disposition home or self-care (01) ==
LOC: PST 07:07
PROVIDERS: PCP Family Medicine; Visit Provider Surgery
DX: Z01.818 Encounter for other preprocedural examination (principal); K62.5 Hemorrhage of anus and rectum

== ENCOUNTER 2024-02-20 06:31 | Day surgery (SDC) | payer MEDICARE, SELFPAY ==
--- OUTSIDE RECORDS SUMMARY | 2024-02-20 06:34 | XMS_ITS | CCD ---
Author Organization [facility] Care Team Providers Care Dipper Machine Operator Name Role Phone DBOUK, TAREK A [...] Unavailable Defrance Woo GONZALEZ Primary Care Provider WOO KILLIAN Referring Unavailable DEFRANCEWOO Primary Care [...] Date of Onset Reaction(s) Facility (1 source) 34493,00 Drug allergy (disorder) 7 [facility] Repository (1 source) ALLERGIES NOT ON FILE; Translations: [ALLERGIES NOT ON FILE] Propensity to adverse reactions (disorder) [facility] Medications Current Medications Medication Drug Class(es) Dates Sig (Normalized) Sig (Original) aspirin 81 mg delayed release oral tablet (3 sources) Platelet Aggregation Inhibitor, Nonsteroidal Anti-inflammatory Drug Start: 08-02-2023 take 1 tablet by mouth in the morning aspirin 81 mg Take 1 tablet (81 mg total) by mouth in the morning. 0 08/02/2023 Active VZATOEW-GRZGRCLGS-JQQ C ORAL (4 sources) take 1 capsule by mouth in the evening TDZBUON-GZUGXSBVR-AR NC ORAL Take 1 capsule by mouth [...] Range Facility Office Visiton 01-14-2024 Follow-up visit [id number] Luma Davey 1955 F Date Provider Department Center 01/14/2024 LEX SALAZAR Family History Problem Relation Age of Onset Other Mother Stroke Mother Stroke Father Valvular heart disease Father Atrial fibrillation Father Family Status - Relation Status Age at Mother Father Level of Service:71992 ME OFFICE/OUTPATIENT ESTABLISHED LOW MDM 20 MIN Normal [facility] CNOVon 10-05-2023 CNOV Office Visit (NECVS8 ) LUMA DAVEY ([id number]) 1955 F Date Time Provider Department 10/05/23 [...] via US mail. PCP Woo Lerner MD [address] [facility] [address] [phone] CEREBROVASCULAR HISTORY Luma Davey is a very [...] 06/16/23: Took her horses to the [facility]. Once she had loaded the horse, she had new onset dizziness (spinning), no nausea, and fell to the left twice, no LOC, no injury to head or other body part. [place] fine right after. Drove home with her horse trailer and felt fine. 06/18/23: Called her PCP and was told to go to the ED. Went to the ED and was then transferred to [facility] Diagnosed with Left BBB bundle and AV [...] once daily. Ca Carb-Mag Cmb 11-D3-Zn Sulf [phone] kd-buqw-vb-mg tab Take by mouth once daily. No [...] No noted (more content not included)... Normal [facility] CNOVon 09-24-2023 CNOV Office Visit (KIMBER ) LUMA DAVEY ([id number]) 1955 F Date Time Provider Department 09/24/23 12:30 PM SUSHILA KEANE During your visit today, we recorded the following information about you: Pulse Blood pressure Weight Height 89/minute 144/77 73.9 kg 1.66 m Sushila Keane MD 09/27/2023 9:48 PM Signed [facility] [place] [facility] Department of Cardiovascular Medicine SECTION OF CARDIOVASCULAR IMAGING OUTPATIENT VISIT DATE September 24, 2023 OUTPATIENT VISIT TYPE NEW (>3yr since last seen) CHIEF COMPLAINT: Further evaluation of valve disease HISTORY OF PRESENT ILLNESS: Ms. Davey is a 68 year old female from [place], [place] who presents for follow-up. Since last [...] once daily. Ca Carb-Mag Cmb 11-D3-Zn Sulf [phone] hi-gvkh-pw-mg tab Take by mouth once daily. naproxen [...] is a 68 year old female from [place], [place] who presents for follow-up. Since last [...] CONTACT INFORMATION: Sushila Keane MD, PhD, [facility] Lpn Home Healthrelief docking master, [facility], Staff, Section of Cardiovascular Imaging, Co-Director Cardio-Oncology Center, Patternmaker Hand of the Echocardiographic Lab, [facility] Dept. Of Cardiovascular Medicine, [address] / [address] [place], [place] [address] Appt: [phone] Referring Provider: SUSHILA KEANE [[id number]] Allergies As of Date: 09/24/2023 (No Known Allergies) Date Reviewed: 09/24/2023 Reviewed by: Javier Ospina MA - Fully Assessed Primary Visit Diagnosis:LBBB (left bundle branch block) [I44.7] Other Visit Diagnoses:Pacemaker [Z95.0] Nonrheumatic mitral valve regurgitation [I34.0] Order(s):CARDIOVASCULAR MEDICINE OP FOLLOW UP APPT ORDER [[id number]] Order #: [id number]: 1 FUTURE Prescriptions as of 09/27/2023 - [...] once daily (more content not included)... Normal [facility] ECG COMPLETEon 09-24-2023 ECG COMPLETE Ventricular Rate : 8 0 BPM Atrial Rate : 80 BPM P-R Interval : 192 ms QRS Duration : 136 ms Q-T Interval : 446 ms QTC Calculation(Bazett) : 514 ms Calculated P [place] : 58 degrees Calculated R [place] : -18 degrees Calculated T [place] : 27 degrees ATRIAL-PACED RHYTHM COMPLETE LEFT BUNDLE BRANCH BLOCK ABNORMAL ECG Confirmed by BABATUNDE WEAVER MD ([id number]) on 10/14/2023 6:43:06 PM NAME : LUMA DAVEY PID : [id number] : 1955 Gender : Female Race : ORD : [id number] Procedure Date : Sep 24 2023 12:35:33 Edit Date : Oct 14 2023 18:43:10 Diagnosis: ATRIAL-PACED RHYTHM COMPLETE LEFT BUNDLE BRANCH BLOCK ABNORMAL ECG Confirmed by BABATUNDE WEAVER MD ([id number]) on 10/14/2023 6:43:06 PM Test Reason : Location : [facility] : [facility] J1-4 Overread By : BABATUNDE WEAVER MD Edited By : BABATUNDE WEAVER MD Referred By : SUSHILA KEANE Acquired by : MONA KRUSE [facility] MR BRAIN WO CONTon 4 MR [...] George MD on 08/31/2023 7:12 AM Normal [facility] Office Visiton 07-24-2023 Follow-up visit [id number] PrLuma mackenzie 1955 F Date Provider Department Center 07/24/2023 [facility] Family History Problem Relation Age of Onset Other Mother Stroke Mother Stroke Father Valvular heart disease Father Atrial fibrillation Father Family Status - Relation Status Age at Mother Father Level of Service:[id number] ME OFFICE/OUTPATIENT ESTABLISHED MOD MDM 30 MIN Normal [facility] 30on 06-22-2023 30 The patient is [...] and behaviors that affect risk of falls [place] fall precautions as indicated by assessment Educate [...] antiarrhythmia medication and electrolyte replacement as ordered [facility] Letter (Out)on 06-22-2023 Letter (Out) [id number] Luma Davey 1955 F Date Provider Department Center 06/22/2023 [id number], GENERIC PRO*INIT None No family history on file [facility] 30on 06-21-2023 30 The patient is Moderately Stable - Low risk of patient condition declining or worsening The patient's goals for the shift include comfort The clinical goals for the shift include stable vitals [facility] 30 The patient is Moderately Stable [...] status, cognitive ability or social support system [facility] 30 Routine stress tests Patient information [...] and hemodynamically stable. Full final report from certified medical biller to follow Shanta Robbins, MSN, CHIEF DEPUTY CLERK/BAILIFF Stress Lab Normal [facility] 30 Daily Case Managemen t Update [...] Consultation Consultation and Management 06/19/23 1148 Normal [facility] BASIC METABOLIC PANELon 06-02 Anion gap [Moles/Vol] 8 mmol/L Normal 7-20 [facility] Comment on above: Performed By: #### L AB125 #### [facility] (Match) [address] [place] [address] Calcium [Mass/Vol] 9.0 mg/dL Normal 8.6-10.[address] [facility] Comment on above: Performed By: #### L AB125 #### [facility] ([facility]) [address] [place] [address] Chloride [Moles/Vol] 109 mmol/L High 98-107 [facility] Comment on above: Performed By: #### L AB125 #### [facility] ([facility]) [address] [place] [address] CO2 [Moles/Vol] 24 mmol/L Normal 21- [facility] Comment on above: Performed By: #### L AB125 #### [facility] [address] [place] [address] Creatinine [Mass/Vol] 1.05 mg/dL Normal 0.60-1.20 [facility] Comment on above: Performed By: #### L AB125 #### [facility] [address] [place] [address] GLOMERULAR FILTRATION RATE ML/MIN/1.73 SQ M.PREDICTED 57.9 mL/min/1.73m*2 Low >60.0 [facility] Comment on above: Result Comment: [facility]???s estimated glomerular filtration rate (eGFR) will [...] By: #### L AB125 #### [facility] [address] [place] [address] Glucose [Mass/Vol] 108 mg/dL High 70-[address] [facility] Comment on above: Performed By: #### L AB125 #### [facility] [address] [place] [address] Potassium [Moles/Vol] 4.2 mmol/L Normal 3.5-5.1 [facility] Comment on above: Performed By: #### L AB125 #### [facility] [address] [place] [address] Sodium [Moles/Vol] 137 mmol/L Normal 136-[address] [facility] Comment on above: Performed By: #### L AB125 #### [facility] [address] [place] [address] Urea nitrogen [Mass/Vol] 25 mg/dL Normal 7-25 [facility] Comment on above: Performed By: #### L AB125 #### [facility] (Match) [address] [place] [address] UREA NITROGEN/CREATININE (MASS RATIO) IN SER/PLAS 23.8 Normal [facility] Comment on above: Performed By: #### L AB125 #### [facility] ([facility]) [address] [place] [address] CBCon 06-21-2023 Erythrocyte distribution width (RBC) [Ratio] 12.7 % Normal 11.5-15.0 [facility] Comment on above: Performed By: #### L AB125 #### [facility] [address] [place] [address] ERYTHROCYTE MEAN CORPUSCULAR HEMOGLOBIN CONCENTRATION (G/DL) BY AUTOMATED 33.4 g/dL Normal 32.0-35.0 [facility] Comment on above: Performed By: #### L AB125 #### [facility] (Match) [address] [place] [address] Hematocrit (Bld) [Volume fraction] 38.6 % Normal 36.0-48.0 [facility] Comment on above: Performed By: #### L AB125 #### [facility] [address] [place] [address] Hemoglobin (Bld) [Mass/Vol] 12.9 g/dL Normal 12.0-15.0 [facility] Comment on above: Performed By: #### L AB125 #### [facility] ([facility]) [address] [place] [address] MCH (RBC) [Entitic mass] 29.4 pg Normal 27.0-33.0 [facility] Comment on above: Performed By: #### L AB125 #### [facility] ([facility]) [address] [place] [address] MCV (RBC) [Entitic vol] 87.9 fL Normal 82.0-98.0 [facility] Comment on above: Performed By: #### L AB125 #### [facility] ([facility]) [address] [place] [address] PLATELETS (10*3/UL) IN BLOOD AUTOMATED COUNT 208 10*3/uL Normal 150-400 [facility] Comment on above: Performed By: #### L AB125 #### [facility] ([facility]) [address] [place] [address] RBC (Bld) [#/Vol] 4.39 10*6/uL Normal 3.80-5.00 [facility] Comment on above: Performed By: #### L [id number] #### [facility] ([facility]) [address] [place] [address] WBC (Bld) [#/Vol] 6.57 10*3/uL Normal 4.00-10.60 [facility] Comment on above: Performed By: #### L AB125 #### [facility] ([facility]) [address] [place] [address] 30on 06-20-2023 30 The patient is Moderately Stable - Low risk of patient condition declining or worsening The patient's goals for the shift include comfort The clinical goals for the shift include stable vitals Normal [facility] 30 Daily Case Managemen t Update [...] Consultation Consultation and Management 06/19/23 1148 Normal [facility] 30 Problem: Pain - Adul t [...] falls Assess patient frequently for physical needs [place] fall precautions as indicated by assessment Educate [...] Monitor la (more content not included)... Normal [facility] BASIC METABOLIC PANELon 12-2 Anion gap [Moles/Vol] 9 mmol/L Normal - [facility] Comment on above: Performed By: #### L AB15 #### [facility] (BEAKER) [address] [place] [address] Calcium [Mass/Vol] 8.9 mg/dL Normal 8.6-10.[address] [facility] Comment on above: Performed By: #### L AB15 #### [facility] ([facility]) [address] [place] [address] Chloride [Moles/Vol] 107 mmol/L Normal 98-107 [facility] Comment on above: Performed By: #### L AB15 #### [facility] ([facility]) [address] [place] [address] CO2 [Moles/Vol] 24 mmol/L Normal 21-31 [facility] Comment on above: Performed By: #### L AB15 #### [facility] ([facility]) [address] [place] [address] Creatinine [Mass/Vol] 1.07 mg/dL Normal 0.60-1.20 [facility] Comment on above: Performed By: #### L AB15 #### [facility] ([facility]) [address] [place] [address] GLOMERULAR FILTRATION RATE ML/MIN/1.73 SQ M.PREDICTED 56.6 mL/min/1.73m*2 Low >60.0 [facility] Comment on above: Result Comment: [facility]???s estimated glomerular filtration rate (eGFR) will [...] individuals. Performed By: #### L AB15 #### [facility] ([facility]) [address] [place] [address] Glucose [Mass/Vol] 104 mg/dL High 70-[address] [facility] Comment on above: Performed By: #### L AB15 #### [facility] ([facility]) [address] [place] [address] Potassium [Moles/Vol] 4.1 mmol/L Normal 3.5-5.1 [facility] Comment on above: Performed By: #### L AB15 #### [facility] ([facility]) [address] [place] [address] Sodium [Moles/Vol] 136 mmol/L Normal 136-[address] [facility] Comment on above: Performed By: #### L AB15 #### [facility] ([facility]) [address] [place] [address] Urea nitrogen [Mass/Vol] 22 mg/dL Normal 7-25 [facility] Comment on above: Performed By: #### L AB15 #### [facility] ([facility]) [address] [place] [address] UREA NITROGEN/CREATININE (MASS RATIO) IN SER/PLAS 20.6 Normal [facility] Comment on above: Performed By: #### L AB15 #### [facility] ([facility]) [address] [place] [address] CBCon 06-20-2023 Erythrocyte distribution width (RBC) [Ratio] 12.7 % Normal 11.5-15.0 [facility] Comment on above: Performed By: #### L [id number] #### [facility] ([facility]) [address] [place] [address] ERYTHROCYTE MEAN CORPUSCULAR HEMOGLOBIN CONCENTRATION (G/DL) BY AUTOMATED 33.8 g/dL Normal 32.0-35.0 [facility] Comment on above: Performed By: #### L [id number] #### [facility] [address] [place] [address] Hematocrit (Bld) [Volume fraction] 37.9 % Normal 36.0-48.0 [facility] Comment on above: Performed By: #### L [id number] #### [facility] [address] [place] [address] Hemoglobin (Bld) [Mass/Vol] 12.8 g/dL Normal 12.0-15.0 [facility] Comment on above: Performed By: #### L [id number] #### [facility] [address] [place] [address] MCH (RBC) [Entitic mass] 29.7 pg Normal 27.0-33.0 [facility] Comment on above: Performed By: #### L [id number] #### [facility] [address] [place] [address] MCV (RBC) [Entitic vol] 87.9 fL Normal 82.0-98.0 [facility] Comment on above: Performed By: #### L [id number] #### [facility] ([facility]) [address] [place] [address] PLATELETS (10*3/UL) IN BLOOD AUTOMATED COUNT 216 10*3/uL Normal 150-400 [facility] Comment on above: Performed By: #### L [id number] #### [facility] ([facility]) [address] [place] [address] RBC (Bld) [#/Vol] 4.31 10*6/uL Normal 3.80-5.00 [facility] Comment on above: Performed By: #### L [id number] #### [facility] [address] [place] [address] WBC (Bld) [#/Vol] 8.85 10*3/uL Normal 4.00-10.60 [facility] Comment on above: Performed By: #### L AB125 #### [facility] [address] [place] [address] CONSULTon 06-20-2023 CONSULT R NM Electrophysiology Consult Note Reason for visit: Bradycardia: 2:1 AV block HPI: Luma Davey is a 67 y.o. year old with past medical history of LBBB, MVP with mild MR, palpitations on propanlol, who presents as a transfer from [facility] for symptomatic bradycardia. She has been experiencing [...] Murmur: n (more content not included)... Normal [facility] IRON AND TIBCon 06-20-2023 IRON (UG/DL) IN SER/PLAS 20 ug/dL Low 50-212 [facility] Comment on above: Performed By: #### L [id number] #### [facility] ([facility]) [address] [place] [address] IRON BINDING CAPACITY (UG/DL) IN SER/PLAS 386 ug/dL Normal 250-450 [facility] Comment on above: Performed By: #### L [id number] #### [facility] ([facility]) [address] [place] [address] IRON BINDING CAPACITY.UNSATURATE D (UG/DL) IN SER/PLAS 366.0 ug/dL High 155.0-355.0 [facility] Comment on above: Performed By: #### L [id number] #### [facility] [address] [place] [address] IRON SATURATION (%) IN SER/PLAS 5 % Low 20-50 [facility] Comment on above: Performed By: #### L [id number] #### [facility] ([facility]) [address] [place] [address] VITAMIN B1on 06-20-2023 VITAMIN B1, PLASMA 21 nmol/L High 4-[address] [facility] Comment on above: Result Comment: INTE RPRETIVE DATA: Vitamin B1, Plasma Thiamine (vitamin B1) is reported. However, thiamine diphosphate (TDP), the biologically active form of thiamine, is not found in measurable concentrations in plasma, and is best determined in whole blood specimens. Plasma thiamine concentration reflects recent intake rather than body stores. This test was developed and its performance characteristics determined by [employer]. It has not been cleared or approved by the [place] Food and Drug Administration. This test was performed in a CLIA certified laboratory and is intended for clinical purposes. Performed By: [facility] [address] [place] [address] [employer] Equipment Mechanic: Rocky Claros MD, PhD CLIA Number: [id number] Performed By: #### L [id number] #### [facility] (BEAKER) [address] [place] [address] VITAMIN B6on 06-20-2023 VITAMIN B6 32.3 nmol/L Normal 20.0-125.0 [facility] Comment on above: Result Comment: INTE RPRETIVE INFORMATION: Vitamin B6 (Pyridoxal 5-Phosphate) Pyridoxal 5'-phosphate measured in a specimen collected following an 8-hour or overnight fast accurately indicates vitamin B6 nutritional status. Non-fasting specimen concentration reflects recent vitamin intake. This test was developed and its performance characteristics determined by [employer]. It has not been cleared or approved by the [place] Food and Drug Administration. This test was performed in a CLIA certified laboratory and is intended for clinical purposes. Performed By: [facility] [address] [place] [address] [employer] Equipment Mechanic: Rocky Claros MD, PhD CLIA Number: [id number] Performed By: #### L AB120 ####[facility] ([facility] [place] [address] 30on 06-19-2023 30 The patient is Moderately [...] optimal renal function maintained Outcome: Progressing Normal [facility] 30 The patient is Moderately Unstable [...] including repeat lab results as appropriate Normal [facility] 30 Daily Case Managemen t Update Multidisciplinary rounds have been completed. Barriers to Discharge: Patient transferred from [facility] with dizziness, facial numbness and SOB. Cardiology [...] Consultation Consultation and Management 06/19/23 1042 Normal [facility] BASIC METABOLIC PANELon - Anion gap [Moles/Vol] 11 mmol/L Normal - [facility] Comment on above: Performed By: #### L AB15 #### [facility] (Match) [address] [place] [address] Calcium [Mass/Vol] 8.9 mg/dL Normal 8.6-10.[address] [facility] Comment on above: Performed By: #### L AB15 #### [facility] ([facility]) [address] [place] [address] Chloride [Moles/Vol] 106 mmol/L Normal 98-107 [facility] Comment on above: Performed By: #### L AB15 #### [facility] ([facility]) [address] [place] [address] CO2 [Moles/Vol] 23 mmol/L Normal 21-31 [facility] Comment on above: Performed By: #### L AB15 #### [facility] ([facility]) [address] [place] [address] Creatinine [Mass/Vol] 1.06 mg/dL Normal 0.60-1.20 [facility] Comment on above: Performed By: #### L AB15 #### [facility] ([facility]) [address] [place] [address] GLOMERULAR FILTRATION RATE ML/MIN/1.73 SQ M.PREDICTED 57.2 mL/min/1.73m*2 Low >60.0 [facility] Comment on above: Result Comment: [facility]???s estimated glomerular filtration rate (eGFR) will [...] individuals. Performed By: #### L AB15 #### [facility] ([facility]) [address] [place] [address] Glucose [Mass/Vol] 132 mg/dL High 70-[address] [facility] Comment on above: Performed By: #### L AB15 #### [facility] ([facility]) [address] [place] [address] Potassium [Moles/Vol] 4.1 mmol/L Normal 3.5-5.1 [facility] Comment on above: Performed By: #### L AB15 #### [facility] ([facility]) [address] [place] [address] Sodium [Moles/Vol] 136 mmol/L Normal 136-[address] [facility] Comment on above: Performed By: #### L AB15 #### [facility] ([facility]) [address] [place] [address] Urea nitrogen [Mass/Vol] 26 mg/dL High 7-25 [facility] Comment on above: Performed By: #### L AB15 #### [facility] [address] [place] [address] UREA NITROGEN/CREATININE (MASS RATIO) IN SER/PLAS 24.5 Normal [facility] Comment on above: Performed By: #### L AB15 #### [facility] [address] [place] [address] CBCon 06-19-2023 Erythrocyte distribution width (RBC) [Ratio] 12.8 % Normal 11.5-15.0 [facility] Comment on above: Performed By: #### L [id number] #### [facility] [address] [place] [address] ERYTHROCYTE MEAN CORPUSCULAR HEMOGLOBIN CONCENTRATION (G/DL) BY AUTOMATED 33.3 g/dL Normal 32.0-35.0 [facility] Comment on above: Performed By: #### L [id number] #### [facility] [address] [place] [address] Hematocrit (Bld) [Volume fraction] 37.5 % Normal 36.0-48.0 [facility] Comment on above: Performed By: #### L [id number] #### [facility] ([facility]) [address] [place] [address] Hemoglobin (Bld) [Mass/Vol] 12.5 g/dL Normal 12.0-15.0 [facility] Comment on above: Performed By: #### L [id number] #### [facility] ([facility]) [address] [place] [address] MCH (RBC) [Entitic mass] 29.5 pg Normal 27.0-33.0 [facility] Comment on above: Performed By: #### L [id number] #### [facility] ([facility]) [address] [place] [address] MCV (RBC) [Entitic vol] 88.4 fL Normal 82.0-98.0 [facility] Comment on above: Performed By: #### L [id number] #### [facility] ([facility]) [address] [place] [address] PLATELETS (10*3/UL) IN BLOOD AUTOMATED COUNT 233 10*3/uL Normal 150-400 [facility] Comment on above: Performed By: #### L [id number] #### [facility] ([facility]) [address] [place] [address] RBC (Bld) [#/Vol] 4.24 10*6/uL Normal 3.80-5.00 [facility] Comment on above: Performed By: #### L [id number] #### [facility] ([facility]) [address] [place] [address] WBC (Bld) [#/Vol] 8.35 10*3/uL Normal 4.00-10.60 [facility] Comment on above: Performed By: #### L [id number] #### [facility] ([facility]) [address] [place] [address] CONSULTon 06-19-2023 CONSULT --- Attestation signed by [...] her daughter regarding her presentation. EKGs from [facility] and telemetry here show episodes of 2-1 [...] accident/transient ischemic attack. Vijay Sandoval MD, MPH, [facility], [facility], [facility] Interventional Cardiology Pager Email: [email or web address] Cardiology Consult Note Reason for Consult: Bradycardia HPI: Luma Davey is a 67 y.o. female with past medical history of known LBBB, MVP with mild MR, palpitations on propanlol, who presents as a transfer from [facility] for symptomatic bradycardia. Patient states she chronically [...] Value Ventricular Rate 85 Atrial Rate 85 ME Interval 156 QRS DURATION 132 QT Interval 480 QTC CALCULATION(BAZETT) 571 P [place] 68 R-Southbridge 1 T Wave [place] 34 Impression Normal sinus rhythm Left bundle [...] of BP (more content not included)... Normal [facility] FOLATEon 06-19-2023 FOLATE (NG/ML) IN SER/PLAS 27.00 ng/mL Normal 6.6-1000 [facility] Comment on above: Performed By: #### L AB69 #### [facility] (BEAKER) [address] [place] [address] FOLATE (NG/ML) IN SER/PLAS 29.00 ng/mL Normal 6.6-1000 [facility] Comment on above: Performed By: #### L AB69 ####[facility] ([facility])[address] [place] [address] Letter (Out)on 06-19-2023 Letter (Out) [id number] Luma Davey 1955 F Date Provider Department Center 06/19/2023 [id number], GENERIC PRO*INIT None No family history on file Normal [facility] MAGNESIUMon 06-19-2023 Magnesium [Mass/Vol] 1.7 mg/dL Low 1.9-2.7 [facility] Comment on above: Performed By: #### L [id number] #### [facility] ([facility]) [address] [place] [address] METHYLMALONIC ACID, SERUMon 06-19-2023 METHYLMALONIC ACID, S 0.18 umol/L Normal 0.00-0.40 [facility] Comment on above: Result Comment: INTE RPRETIVE INFORMATION: MMA Serum/Plasma, Vitamin B12 Status This test was developed and its performance characteristics determined by [employer]. It has not been cleared or approved by the US Food and Drug Administration. This test was performed in a CLIA certified laboratory and is intended for clinical purposes. Performed By: [facility] [employer] [address] [place] [address] [employer] Mechanic: Rocky Claros MD, PhD CLIA Number: [id number] Performed By: #### L AB125 #### [facility] ([facility]) [address] [place] [address] TSH3 REFLEX TO FT4on 023 THYROTROPIN (MIU/L) IN SER/PLAS BY DETECTION LIMIT <= 0.05 MIU/L 2.78 mIU/L Normal 0.34-5.60 [facility] Comment on above: Performed By: #### L [id number] ####[facility] ([facility] [place] [address] VITAMIN B1on 06-19-2023 VITAMIN B1, PLASMA 23 nmol/L High 4-[address] [facility] Comment on above: Result Comment: INTE RPRETIVE DATA: Vitamin B1, Plasma Thiamine (vitamin B1) is reported. However, thiamine diphosphate (TDP), the biologically active form of thiamine, is not found in measurable concentrations in plasma, and is best determined in whole blood specimens. Plasma thiamine concentration reflects recent intake rather than body stores. This test was developed and its performance characteristics determined by [employer]. It has not been cleared or approved by the US Food and Drug Administration. This test was performed in a CLIA certified laboratory and is intended for clinical purposes. Performed By: [employer] [address] [place] [address] [employer] Mechanic: Rocky Claros MD, PhD CLIA Number: [id number] Performed By: #### L AB125 #### [facility] ([facility]) [address] [place] [address] VITAMIN B12on 06-19-2023 Cobalamin (Vitamin B12) [Mass/Vol] 437 pg/mL Normal 180-914 [facility] Comment on above: Result Comment: REFE RENCE RANGES: 180-914 pg/mL Normal 145-179 pg/mL Indeterminate <145 pg/mL Deficient Performed By: #### L AB125 #### [facility] ([facility]) [address] [place] [place] [id number] VITAMIN B6on 06-19-2023 VITAMIN B6 66.5 nmol/L Normal 20.0-125.0 [facility] Comment on above: Result Comment: INTE RPRETIVE INFORMATION: Vitamin B6 (Pyridoxal 5-Phosphate) Pyridoxal 5'-phosphate measured in a specimen collected following an 8-hour or overnight fast accurately indicates vitamin B6 nutritional status. Non-fasting specimen concentration reflects recent vitamin intake. This test was developed and its performance characteristics determined by [employer]. It has not been cleared or approved by the US Food and Drug Administration. This test was performed in a CLIA certified laboratory and is intended for clinical purposes. Performed By: [facility] [employer] [address] [place] [address] [employer] Mechanic: Rocky Claros MD, PhD CLIA Number: [id number] Performed By: #### L AB125 #### [facility] (AKER) [address] [place] [address] CBC AUTO DIFFon 01-12-2022 BASO # 0.0 103/ul Normal 0.0-0.1 [facility] Comment on above: Performed By: #### C BC #### [facility] [address] [place] [address] Dr. Anurag Solano Basophils/100 WBC (Bld) 0.4 % Normal 0.2-2.0 [facility] Comment on above: Performed By: #### C BC #### [facility] [address] [place] [address] Dr. Anurag Solano EO # 0.2 103/ul Normal 0.0-0.7 [facility] Comment on above: Performed By: #### C BC #### [facility] [address] [place] [address] Dr. Anurag Solano Eosinophils/100 WBC (Bld) 2.9 % Normal 0.9-7.0 [facility] Comment on above: Performed By: #### C BC #### [facility] [address] [place] [address] Dr. Anurag Solano Erythrocyte distribution width (RBC) [Ratio] 12.4 % Normal 11.0-15.0 [facility] Comment on above: Performed By: #### C BC #### [facility] [address] [place] [address] Dr. Anurag Solano Hematocrit (Bld) [Volume fraction] 41.0 % Normal 36.0-48.0 [facility] Comment on above: Performed By: #### C BC #### [facility] [address] [place] [address] Dr. Anurag Solano Hemoglobin (Bld) [Mass/Vol] 13.3 g/dL Normal 12.0-16.0 [facility] Comment on above: Performed By: #### C BC #### [facility] [address] [place] [address] Dr. Anurag Solano IG # 0.02 10e3/ul Normal 0.00-0.03 [facility] Comment on above: Performed By: #### C BC #### [facility] [address] [place] [address] Dr. Anurag Solano IG % 0.3 % Normal 0.0-0.5 [facility] Comment on above: Performed By: #### C BC #### [facility] [address] [place] [address] Dr. Anurag Solano LYMPH # 2.2 103/ul Normal 1.2-3.8 [facility] Comment on above: Performed By: #### C BC #### [facility] [address] [place] [address] Dr. Anurag Solano Lymphocytes/100 WBC (Bld) 30.1 % Normal 20.5-60.0 [facility] Comment on above: Performed By: #### C BC #### [facility] [address] [place] [address] Dr. Anurag Solano MANUAL DIFF REQ NO Normal [facility] Comment on above: Performed By: #### C BC #### [facility] [address] [place] [address] Dr. Anurag Solano MCH (RBC) [Entitic mass] 29.8 pg Normal 26.7-34.0 [facility] Comment on above: Performed By: #### C BC #### [facility] [address] [address] [address] Anurag Solano MCHC (RBC) [Mass/Vol] 32.4 g/dL Normal 29.9-35.2 [facility] Comment on above: Performed By: #### C BC #### [facility] [id number] [address] Anurag Solano MCV (RBC) [Entitic vol] 91.7 fL Normal 81.0-99.0 [facility] Comment on above: Performed By: #### C BC #### [facility] [address] [address] [address] Anurag Solano MONO # 0.6 103/ul Normal 0.3-0.8 [facility] Comment on above: Performed By: #### C BC #### [facility] [address] [place] [address] Dr. Anurag Solano Monocytes/100 WBC (Bld) 7.7 % Normal 1.7-12.0 [facility] Comment on above: Performed By: #### C BC #### [facility] [address] [place] [address] Dr. Anurag Solano NEUT # 4.3 103/ul Normal 1.4-6.5 [facility] Comment on above: Performed By: #### C BC #### [facility] [address] [place], [place] [id number] Dr. Anurag Solano Neutrophils/100 WBC (Bld) 58.6 % Normal 43.0-75.0 [facility] Comment on above: Performed By: #### C BC #### [facility] [address] [place], [place] [id number] Dr. Anurag Solano Platelet mean volume (Bld) [Entitic vol] 9.4 fL Critically low 9.5-13.5 [facility] Comment on above: Performed By: #### C BC #### [facility] [address] [place] [address] Dr. Anurag Solano PLT 282 103/ul Normal 150-450 [facility] Comment on above: Performed By: #### C BC #### [facility] [address] [place] [address] Dr. Anurag Solano RBC 4.47 106/ul Normal 4.20-5.40 [facility] Comment on above: Performed By: #### C BC #### [facility] [address] [place] [address] Dr. Anurag Solano WBC 7.3 103/ul Normal 4.0-11.0 [facility] Comment on above: Performed By: #### C BC #### [facility] [address] [place] [address] Dr. Anurag Solano FREE T4on 01-12-2022 Free T4 [Mass/Vol] 0.89 ng/dL Normal 0.76-1.46 [facility] Comment on above: Performed By: #### F T4 #### [facility] [address] [place] [address] Dr. Anurag Solano LIPID PROFILEon 01-12-2022 CHOL-HDL RATIO NORM SEE BELOW Normal [facility] Comment on above: Result Comment: 3.3 - 4.4 LOW RISK 4.4 - 7.1 AVERAGE RISK 7.1 - 11.0 MODERATE RISK >11.0 HIGH RISK Performed By: #### C MP, TSH, LIPID #### [facility] [address] [place] [address] Dr. Anurag Solano Cholesterol [Mass/Vol] 213 mg/dL Critically high <=200 [facility] Comment on above: Performed By: #### C MP, TSH, LIPID #### [facility] [address] [place] [address] Dr. Anurag Solano Cholesterol in HDL [Mass/Vol] 44 mg/dL Normal 40-60 [facility] Comment on above: Performed By: #### C MP, TSH, LIPID #### [facility] [address] [place] [address] Dr. Anurag Solano Cholesterol in LDL [Mass/Vol] 143.2 mg/dL Normal [facility] Comment on above: Performed By: #### C MP, TSH, LIPID #### [facility] [address] [place] [address] Dr. Anurag Solano Cholesterol.total/C holesterol in HDL [Mass ratio] 4.8 {ratio} Normal [facility] Comment on above: Performed By: #### C MP, TSH, LIPID #### [facility] [address] [address] [address] Anurag Solano HDL NORMAL > or = 60 mg/dl - LO W CARDIOVASCULAR RISK <40 mg/dl - HIGH CARDIOVASCULAR RISK Normal [facility] Comment on above: Performed By: #### C MP, TSH, LIPID #### [facility] [address] [address] [address] Anurag Solano LDL CALC NORMAL SEE BELOW Normal [facility] Comment on above: Result Comment: <100 mg/dl OPTIMAL 100 - 129 mg/dl NEAR OR ABOVE OPTIMAL 130 - 159 mg/dl BORDERLINE HIGH 160 - 189 mg/dl HIGH >190 mg/dl VERY HIGH Performed By: #### C MP, TSH, LIPID #### [facility] [address] [address] [address] Anurag Solano Triglyceride [Mass/Vol] 129 mg/dL Normal <=150 [facility] Comment on above: Performed By: #### C MP, TSH, LIPID #### [facility] [address] [address] [address] Anurag Solano VLDL CALC 25.8 mg/dL Normal [facility] Comment on above: Performed By: #### C MP, TSH, LIPID #### [facility] [address] [address] [address] Anurag Solano PROF 14(COMP METB)on 022 Albumin [Mass/Vol] 3.6 g/dL Normal 3.4-5.0 [facility] Comment on above: Performed By: #### C MP, TSH, LIPID #### [facility] [address] [address] [address] Anurag Solano Albumin/Globulin [Mass ratio] 1.1 {ratio} Normal [facility] Comment on above: Performed By: #### C MP, TSH, LIPID #### [facility] [address] [address] [address] Anurag Solano ALP [Catalytic activity/Vol] 107 U/L Normal 46-116 [facility] Comment on above: Performed By: #### C MP, TSH, LIPID #### [facility] [address] [address] [address] Anurag Solano ALT [Catalytic activity/Vol] 19 U/L Normal 14-59 [facility] Comment on above: Performed By: #### C MP, TSH, LIPID #### [facility] [address] [address] [address] Anurag Solano Anion gap [Moles/Vol] 8.3 mmol/L Normal [facility] Comment on above: Performed By: #### C MP, TSH, LIPID #### [facility] [address] [address] [address] Anurag Solano AST [Catalytic activity/Vol] 17 U/L Normal 15-37 [facility] Comment on above: Performed By: #### C MP, TSH, LIPID #### [facility] [address] [place] [address] Dr. Anurag Solano Bilirubin [Mass/Vol] 0.3 mg/dL Normal 0.2-1.0 [facility] Comment on above: Performed By: #### C MP, TSH, LIPID #### [facility] [address] [place] [address] Dr. Anurag Solano Calcium [Mass/Vol] 8.7 mg/dL Normal 8.5-10.1 [facility] Comment on above: Performed By: #### C MP, TSH, LIPID #### [facility] [address] [place] [address] Dr. Anurag Solano Chloride [Moles/Vol] 106 mmol/L Normal 98-107 [facility] Comment on above: Performed By: #### C MP, TSH, LIPID #### [facility] [address] [address] [address] Anurag Solano CO2 [Moles/Vol] 30.3 mmol/L Normal 21.0-32.0 [facility] Comment on above: Performed By: #### C MP, TSH, LIPID #### [facility] [address] [place] [address] Dr. Anurag Solano Creatinine [Mass/Vol] 1.16 mg/dL Critically high 0.55-1.02 [facility] Comment on above: Performed By: #### C MP, TSH, LIPID #### [facility] [address] [place] [address] Dr. Anurag Solano EGFR-AF LIBERIAN 56 mL/min/1.73m2 Critically low >=60 [facility] Comment on above: Performed By: #### C MP, TSH, LIPID #### [facility] [address] [place] [address] Dr. Anurag Solano EGFR-NON AF LIBERIAN 47 mL/min/1.73m2 Critically low >=60 [facility] Comment on above: Performed By: #### C MP, TSH, LIPID #### [facility] [address] [place] [address] Dr. Anurag Solano Globulin (S) [Mass/Vol] 3.3 g/dL Normal [facility] Comment on above: Performed By: #### C MP, TSH, LIPID #### [facility] [address] [place] [address] Dr. Anurag Solano Glucose [Mass/Vol] 105 mg/dL Normal 74-[address] [facility] Comment on above: Performed By: #### C MP, TSH, LIPID #### [facility] [address] [place] [address] Dr. Anurag Solano Potassium [Moles/Vol] 4.6 mmol/L Normal 3.5-5.1 [facility] Comment on above: Performed By: #### C MP, TSH, LIPID #### [facility] [address] [place] [address] Dr. Anurag Solano Protein [Mass/Vol] 6.9 g/dL Normal 6.4-8.[address] [facility] Comment on above: Performed By: #### C MP, TSH, LIPID #### [facility] [address] [place] [address] Dr. Anurag Solano Sodium [Moles/Vol] 140 mmol/L Normal 136-[address] [facility] Comment on above: Performed By: #### C MP, TSH, LIPID #### [facility] [address] [place], [place] [address] Dr. Anurag Solano Urea nitrogen [Mass/Vol] 21.0 mg/dL Critically high 7.0-18.0 [facility] Comment on above: Performed By: #### C MP, TSH, LIPID #### [facility] [address] [place], [place] [address] Dr. Anurag Solano Urea nitrogen/Creatinine [Mass ratio] 18.1 mg/mg Normal [facility] Comment on above: Performed By: #### C MP, TSH, LIPID #### [facility] [address] [place], [place] [address] Dr. Anurag Solano TSHon 01-12-2022 TSH 4.450 uIU/mL Critically high 0.358-3.740 [facility] Comment on above: Performed By: #### C MP, TSH, LIPID #### [facility] [address] [place], [place] [address] Dr. Anurag Solano Basic Metabolic Panelon - Anion gap 8 mmol/L Normal 7-13 [facility] Calcium 10.0 mg/dL Normal 8.6-10.2 [facility] Chloride 103 mmol/L Normal 98-107 [facility] CO2 30 mmol/L Critically high 22-29 [facility] Creatinine 0.88 mg/dL Normal 0.50-0.90 [facility] eGFR (black) mL/min/{1.73_m2} Normal >60 [facility] Comment on above: Result Comment: >60 mL/min/1.73m2 EGFR, calc. for ages 18 and older using theMDRD formula (not corrected for weight), is valid for stablerenal function. eGFR (MDRD) mL/min/{1.73_m2} Normal >60 [facility] Comment on above: Result Comment: >60 mL/min/1.73m2 EGFR, calc. for ages 18 and older using theMDRD formula (not corrected for weight), is valid for stablerenal function. Glucose mass conc 99 mg/dL Normal 74-109 [facility] Potassium molar conc 4.9 mmol/L Normal 3.5-5.1 [facility] Sodium 141 mmol/L Normal 132-144 [facility] Urea nitrogen 22 mg/dL Normal 8-23 [facility] CBC With Platelet No Efee ntialon 09-24-2017 Erythrocyte distribution width Auto Ratio (RBC) 13.2 % Normal 11.5-14.5 [facility] Erythrocytes (RBC) 4.37 10*6/uL Normal 4.20-5.40 [facility] Hematocrit (HCT) 39.9 % Normal 37.0-47.0 [facility] Hemoglobin mass conc (Bld) 13.4 g/dL Normal 12.0-16.0 [facility] MCH 30.6 pg Normal 27.0-31.3 [facility] MCHC mass conc (RBC) 33.5 % Normal 33.0-37.0 [facility] MCV 91.4 fL Normal 82.0-100.0 [facility] Platelets 256 10*3/uL Normal 130-400 [facility] WBC (Leukocytes) 7.3 10*3/uL Normal 4.8-10.8 [facility] Extra Tube, Blood Bankon Bilirubin (total) PATIENT: PETAR VILLALOBOS [facility],BILL# : [id number] : 1955 SEX: FORDERED BY: SHAKIR FERMIN ORDERED : 09/24/2017 14:13 COLLECTED: 09/24/2017 13:52ORDER : [id number] RECEIVED : 09/24/2017 13:52 TEST NAME RESULT UNITS RANGES ABN FL STExtra Tube, Blood Bank ADEEL F --------- [facility] RBC LRon 09-24-2017 Erythrocytes (RBC) PATIENT: PETAR VILLALOBOS LOC: [facility] BILL# : [id number] : 1955 SEX: FORDERED BY: SHAKIR FERMIN ORDERED : 09/26/2017 13:35 COLLECTED: 09/24/2017 13:52ORDER : [id number] RECEIVED : 09/24/2017 13:52 TEST NAME RESULT UNITS RANGES ABN FL STRBC LR [id number] RBC LR W0 F --------- Normal [facility] Type and Screen Capture 3 sc rn cellon 09-24-2017 Bilirubin (total) PATIENT: PETAR VILLALOBOS LOC: [facility] BILL# : [id number] : 1955 SEX: FORDERED BY: SHAKIR FERMIN ORDERED : 09/24/2017 11:58 COLLECTED: 09/24/2017 13:52ORDER : [id number] RECEIVED : 09/24/2017 13:52 TEST NAME RESULT UNITS RANGES ABN FL STABORH Capture O POS FAntibody 3 Cell Scrn Captu NEG F --------- Normal [facility] Culture, Urineon 08-10-2017 Culture, Urine ORDERED BY: LINDA SCHILLING: Urine Clean Catch COLLECTED: 08/10/17 14:46ANTIBIOTICS AT ADEEL.: RECEIVED : 08/10/17 15:13Culture, Urine FINAL 08/12/17 07:48 No growth 24 hours Normal [facility] Urinalysis, reflex to micros copicon 08-10-2017 Bilirubin Ql (U) Negative Normal Negative [facility] Urine, clarity CLOUDY Abnormal Clear [facility] Urine, color Yellow Normal [facility] Urine, glucose presence Negative Normal Negative [facility] Urine, hemoglobin presence LARGE Abnormal Negative [facility] Urine, ketones presence Negative Normal Negative [facility] Urine, leukocyte esterase presence Negative Normal Negative [facility] Urine, nitrite presence Negative Normal Negative [facility] Urine, pH 5.0 [pH] Normal 5.0-9.0 [facility] Urine, protein presence Negative Normal Negative [facility] Urine, specific gravity 1.031 Normal 1.005-1.03 [facility] Urine, urobilinogen 0.2 {Jigar'U}/dL Normal < 2.0 [facility] Urine Microscopicon 08-10-19 18 Urine, bacteria in sediment Many Normal [facility] Urine, epithelial cells presence in sediment 3-5 Normal [facility] Urine, erythrocytes 10-20 Abnormal 0-2 [facility] Urine, leukocytes 0-2 Normal 0-5 [facility] PELVIS 1 OR 2 Son 03-16-20 17 PELVIS 1 OR 2 [facility] [address] [place] [address] =====Patient Name: LUMA DAVEY : 1955Sex: FAge: Race: WhiteMRN: [id number]. Location: 84Patient Status: Date: 03/16/2017 11:00:00 AMCompleted Date: 03/16/2017 11:26 AMRequesting Provider: MAXIME OSPINA Attending Provider: Report Copy To: Signs & Symptoms: S32.9XXD Fx unsp parts of lumbosacr spin \EANDE\ pelv, 7thD R73Kaowlbx: [employer]: , , Views (X-RAY, PELVIS): Radiologic Protocol , , , Ordering Provider - MAXIME OSPINA PA-C , Exam: PELVIS 1 OR 2 VWSAccession #: [id number] PELVIS 1 OR 2 VWS 03/16/2017 11:26 [...] before Electronically signed by:Addy Hernandez. Transcribed by: [email or web address], User Resident: Electronically Signed by: ADDY HERNANDEZ @ 03/16/2017 02:12 PM Normal [facility] Comment on above: Order Comment: , , V iews (X-RAY, PELVIS): Radiologic Protocol , , , Ordering Provider - MAXIME OSPINA PA-C , PELVIS 1 OR 2 VWSon 02-24-20 17 PELVIS 1 OR 2 VWS [facility] [address] [place] [address] =====Patient Name: LUMA DAVEY : 1955Sex: FAge: Race: WhiteMRN: [id number]. Location: 84Patient Status: Date: 02/23/2017 9:15:00 AMCompleted Date: 02/23/2017 09:24 AMRequesting Provider: MAXIME OSPINA Attending Provider: Report Copy To: Signs & Symptoms: S32.9XXD Fx unsp parts of lumbosacr spin \EANDE\ pelv, 7thD R45Zxibvmc: [employer]Comments: , , Views (X-RAY, PELVIS): AP , , , Ordering Provider - MAXIME OSPINA PA-C , Exam: PELVIS 1 OR 2 VWSAccession #: [id number] PELVIS 1 OR 2 VWS 02/23/2017 9:24 [...] joints Electronically signed by:Addy Hernandez. Transcribed by: [email or web address], User Resident: Electronically Signed by: ADDY HERNANDEZ @ 02/23/2017 01:09 PM Normal [facility] Comment on above: Order Comment: , , V iews (X-RAY, PELVIS): AP , , , Ordering Provider - MAXIME OSPINA PA-C , PELVIS 1 OR 2 [facility] 01-12-20 PELVIS 1 [facility] 2 [facility] [address] [place] [address] =====Patient Name: LUMA DAVEY : 1955Sex: FAge: Race: WhiteMRN: [id number]. Location: 84Patient Status: Date: 01/11/2017 1:25:00 PMCompleted Date: 01/11/2017 01:31 PMRequesting Provider: MAXIME OSPINA Attending Provider: Report Copy To: Signs & Symptoms: S32.9XXD Fx unsp parts of lumbosacr spin \EANDE\ pelv, 7thD A15Daqxylc: AthenaComments: , , Views (X-RAY, PELVIS): Radiologic Protocol , , , Ordering Provider - MAXIME OSPINA PA-C , Exam: PELVIS 1 OR 2 VWSAccession #: [id number] PELVIS 1 OR 2 VWS 01/11/2017 1:31 [...] diastases. Electronically signed by:Aaron Cain. Transcribed by: [email or web address], User Resident: Electronically Signed by: AARON CAIN @ 01/11/2017 03:00 PM Normal [facility] Comment on above: Order Comment: , , V iews (X-RAY, PELVIS): Radiologic Protocol , , , Ordering Provider - MAXIME OSPINA PA-C , Vital Signs Date Time Vital Sign Value Performing Clinician Faci lity 08-02-2023 09:08-0500 Body height 165.1 cm Woo Killian MD Work Phone: [facility] 08-02-2023 09:08-0500 Body mass index (BMI) [Ratio] 27.96 kg/m2 Woo Killian MD Work Phone: [facility] 08-02-2023 09:08-0500 Body weight 76.2 kg Woo Killian MD Work Phone: [facility] 08-02-2023 09:08-0500 Diastolic blood pressure 80 mm[Hg] Woo Killian MD Work Phone: [facility] 08-02-2023 09:08-0500 Heart rate 72 /min Woo Killian MD Work Phone: [facility] 08-02-2023 09:08-0500 Respiratory rate 16 /min Woo Killian MD Work Phone: [facility] 08-02-2023 09:08-0500 Systolic blood pressure 120 mm[Hg] Woo Killian MD Work Phone: [facility] 07-05-2023 13:41-0500 Body height 165.1 cm Woo Killian MD Work Phone: [facility] 07-05-2023 13:41-0500 Body mass index (BMI) [Ratio] 28.87 kg/m2 Woo Killian MD Work Phone: [facility] 07-05-2023 13:41-0500 Body weight 78.7 kg Woo Killian MD Work Phone: [facility] 07-05-2023 13:41-0500 Diastolic blood pressure 80 mm[Hg] Woo Killian MD Work Phone: [facility] 07-05-2023 13:41-0500 Heart rate 88 /min Woo Killian MD Work Phone: [facility] 07-05-2023 13:41-0500 Respiratory rate 16 /min Woo Killian MD Work Phone: [facility] 07-05-2023 13:41-0500 Systolic blood pressure 146 mm[Hg] Woo Killian MD Work Phone: [facility] Encounters Encounter Date Encounter Type Care Provider Facility Start: 01-17-2024 End: 01-17-2024 ambulatory [facility] Start: 01-14-2024 End: 01-14-2024 ambulatory [facility] Start: 12-31-2023 End: 12-31-2023 ambulatory FABRIZIO Samayoa HARTMANN [facility] Start: 12-25-2023 End: 12-25-2023 ambulatory [facility] Start: 12-25-2023 Encounter for genera l adult medical examination without abnormal findings [facility] Start: 10-05-2023 End: 10-05-2023 ambulatory WOO LERNER Facility:[facility] Start: 09-24-2023 End: 09-25-2023 ambulatory WOO TATE LERNER Facility:[facility] Start: 09-04-2023 Orders Only Woo palomo MD Work Phone: [facility] Start: 08-30-2023 End: 08-31-2023 ambulatory [facility] Start: 08-30-2023 End: 08-30-2023 ambulatory [facility] Start: 08-07-2023 Refill [facility] Start: 08-02-2023 End: 08-02-2023 Office outpatient visit 25 minutes Woo Killian MD Work Phone: [facility] Comment on above: Transient ischemic a ttack (TIA) (Primary Dx); Symptomatic bradycardia; LBBB (left bundle branch block); Facial weakness Start: 08-02-2023 End: 08-02-2023 ambulatory WOO Sellers [facility] Start: 07-24-2023 End: 07-24-2023 ambulatory [facility] Start: 07-05-2023 End: 07-05-2023 ambulatory WOO KILLIAN [facility] Start: 07-05-2023 End: 07-05-2023 Transitional care manage srvc 14 day discharge Woo Killian MD Work Phone: [facility] Comment on above: Symptomatic bradycar frances (Primary Dx); MVP (mitral valve prolapse); LBBB (left bundle branch block) Start: 07-04-2023 ambulatory PAN LINDSEY [facility] Start: 06-22-2023 Evaluation and manag ement of inpatient [facility] Start: 06-21-2023 Evaluation and manag ement of inpatient SOM [facility] Start: 06-19-2023 [facility] Start: 06-19-2023 End: 06-22-2023 Evaluation and management of inpatient [facility] Start: 01-12-2022 End: 01-13-[address] WOO KILLIAN Facility: Start: 09-29-2020 End: 09-03-2020 Patient encounter procedure Sabrina Caceres Work Phone: [facility] Work Phone: Start: 09-03-2020 End: 09-03-2020 Patient encounter procedure Ruthie Smiley Work Phone: [facility] Work Phone: Start: 09-27-2017 End: 09-27-2017 Ambulatory TARPATSY Goss [facility] Start: 09-24-2017 End: 09-29-2017 Ambulatory TAREK A MYCHALK Ana Paula [facility] Start: 05-02-2017 End: 06-01-2017 Ambulatory MAXIME OSPINA Facility:[facility] Start: 04-01-2017 End: 05-02-2017 Ambulatory MAXIME OSPINA Facility:[facility] Start: 03-16-2017 End: 03-17-2017 Ambulatory MAXIME OSPINA Facility:[facility] Start: 03-02-2017 End: 04-01-2017 Ambulatory MAXIME OSPINA Facility:[facility] Start: 02-23-2017 End: 02-24-2017 Ambulatory MAXIME OSPINA Facility:[facility] Start: 01-30-2017 End: 03-02-2017 Ambulatory MAXIME OSPINA Facility:[facility] Start: 01-11-2017 End: 01-12-2017 Ambulatory MAXIME OSPINA Facility:[facility] Procedures Date Procedure Procedure Detail Performing Clinician [...] Td Vaccines (3 - Td or Tdap) [facility] Start: 08-29-2024 Adult BMI Screening Adult BMI Screen ing [facility] Start: 08-29-2024 Tobacco Screening Tobacco Screening [facility] Start: 08-02-2024 Adult BMI Screening Adult BMI Screen ing [facility] Start: 08-02-2024 Depression Screening Depression Scre ening [facility] Start: 08-02-2024 Fall Risk Screening Fall Risk Screen ing [facility] Start: 08-02-2024 Tobacco Screening Tobacco Screening [facility] Start: 07-05-2024 Adult BMI Screening Adult BMI Screen ing [facility] Start: 07-05-2024 Depression Screening Depression Scre ening [facility] Start: 07-05-2024 Fall Risk Screening Fall Risk Screen ing [facility] Start: 07-05-2024 Tobacco Screening Tobacco Screening [facility] Start: 12-25-2023 End: 12-25-2023 Patient encounter procedure 12/25/2023 11:00 AM EDT Office Visit [facility] [address] [facility] [place] [id number] Woo Killian MD [address] [place], [place] [id number] [facility] Start: 12-21-2023 Medicare Annual Wellness Visit Medicare Annual Wellness Visit [facility] Start: 08-30-2023 End: 08-30-2023 Patient encounter procedure [facility] Start: 08-30-2023 Subsequent hospital visit by physician 08/30/2023 1:15 PM EST Hospital Encounter [facility] [address] [facility] [place] [id number] [facility] Start: 08-02-2023 End: 08-02-2024 Holter monitor study Holter monitor 24-48 hour Cardiac Services Routine Symptomatic bradycardia LBBB (left bundle branch block) Expected: 08/02/2023, Expires: 08/02/2024 [facility] Comment on above: Expected: 08/02/2023 , Expires: 08/02/2024 Start: 08-02-2023 End: 08-02-2024 MR Brain WO contrast MR brain without contrast Imaging Routine Transient ischemic attack (TIA) Expected: 08/02/2023, Expires: 08/02/2024 [facility]: Comment on above: Expected: 08/02/2023 , Expires: 08/02/2024 Start: 08-02-2023 End: 08-02-2024 US Carotid arteries - bilateral Vas carotid duplex bilateral Vascular Ultrasound Routine Transient ischemic attack (TIA) Facial weakness Expected: 08/02/2023, Expires: 08/02/2024 [facility] Comment on above: Expected: 08/02/2023 , Expires: 08/02/2024 Start: 08-02-2023 End: 08-02-2023 Patient encounter procedure 08/02/2023 9:30 AM EST Office Visit [facility] [address] [place] [address] Woo Killian MD [address] [place] [address] [facility] Start: 09-29-2020 2nd Dose- COVID Vaccine [facility] Work Phone: Start: 08-01-2018 Screening for malignant neoplasm of breast Mammogram [facility] Start: 1973 Adult BMI Follow Up Plan Adult BMI Follow Up Plan [facility] Immunizations Immunization Date Immunization Notes Care Provider Fa cility 06-18-2023 RSV, recombinant, protein subunit RSVpreF, adjuvant reconstituted, 0.5 mL, PF Woo Killian MD Work Phone: [facility] 05-16-2023 Influenza Vaccine, Quadrivalent, Adjuvanted oWo Killian MD Work Phone: [facility] 06-20-2022 Covid-19, Mrna, Lnp- s, Bivalent, Pf, 50mcg/0.5ml or 25mcg/0.25ml Woo Killian MD Work Phone: [facility] 03-05-2022 Influenza, High-dose , Quadrivalent Woo Killian MD Work Phone: [facility] 03-05-2022 pneumococcal polysaccharide vaccine, 23 valent Woo Killian MD Work Phone: [facility] 03-05-2022 pneumococcal vaccine , unspecified formulation Woo Killian MD Work Phone: [facility] 04-12-2021 Influenza Vaccine, Quadrivalent, Adjuvanted Woo Killian MD Work Phone: [facility] 04-12-2021 influenza virus vacc ine, unspecified formulation Woo Killian MD Work Phone: [facility] 09-29-2020 2nd Dose MODERNA COVID-19 Vaccine; Translations: [Moderna COVID-19 Vaccine] [facility] Work Phone: Comment on above: Note: Patient tolera meli well. No signs or symptoms of adverse reactions. Patient waited a minimum of 15 minutes. 09-03-2020 2nd Dose MODERNA COVID-19 Vaccine; Translations: [Moderna COVID-19 Vaccine] [facility] Comment on above: Note: Patient tolera meli well. No signs or symptoms of adverse reactions. Patient waited a minimum of 15 minutes. 03-29-2020 Influenza Vaccine, Quadrivalent, Adjuvanted Woo Killian MD Work Phone: [facility] 03-29-2020 zoster vaccine recombinant Woo Killian MD Work Phone: [facility] 07-20-2019 zoster vaccine recombinant Woo Killian MD Work Phone: [facility] 03-31-2019 influenza, injectabl e, quadrivalent, preservative free Woo Killian MD Work Phone: [facility] 03-31-2019 pneumococcal conjuga te vaccine, 13 valent Woo Killian MD Work Phone: [facility] 03-31-2019 tetanus toxoid, redu francisco diphtheria toxoid, and acellular pertussis vaccine, adsorbed Woo Killian MD Work Phone: [facility] 04-22-2018 influenza, injectabl e, quadrivalent, preservative free Woo Killian MD Work Phone: [facility] 06-11-2017 influenza, injectabl e, quadrivalent, preservative free Woo Killian MD Work Phone: [facility] 06-19-2015 influenza, seasonal, injectable, preservative free Woo Killian MD [facility] Phone[facility] 09-12-2011 tetanus toxoid, redu francisco diphtheria toxoid, and acellular pertussis vaccine, adsorbed Woo Killian MD Work Phone: [facility] 04-14-2010 pneumococcal polysaccharide vaccine, 23 valent Woo Killian MD [facility] Payers Date Payer Category Payer Medicare [facility] MEDICARE [facility] MEDICARE ADVANTAGE [id number] 2019-Present [phone] [address] [place] [address] [id number] 2017 Unknown [id number] 1959 Unknown [id number] 1954 Unknown [id number] 1954 Unknown [id number] 6 1954 Unknown [id number] 6 1954 Unknown [id number] 6 1954 Unknown [id number] 6 1954 Unknown [id number] 6 1954 Unknown [id number] 6 1954 Unknown [id number] 6 Social History Date Type Detail Facility Tobacco smoking status Unknown i f ever smoked [facility] Work Phone: Start: 01-10-20[address] [facility] History of tobacco use Current smoker [facility] History of tobacco use Cigarette Smoker P [facility] Start: 01-10-2023 Tobacco use and exposure Smoke less tobacco non-user [facility] Start: 07-05-2023 End: 08-30-2023 Alcohol intake Current drinker of alcohol (finding) [facility] Start: 07-22-2020 End: 07-05-2023 Alcohol intake [facility] Start: 05-25-2020 End: 07-22-2020 Alcohol Use Disorder Identification Test - Consumption [AUDIT-C] [facility] Frequency of Alcohol Consumption 2-3 times a week [facility] Start: 01-10-2023 Tobacco Comment Casual smoker, less than a pack a week [facility] Start: 1955 Sex Assigned At Not on file P [facility] Medical Equipment Procedure Code Equipment Code Equipment Origin al Text Equipment Identifier Dates Cardiac pacemaker, device (physical object) ([id number]) Pac[facility]-06/19/20 23 [id number] Start: 06-19-2023 Comment on above: Description: [place] Clinical Notes 06-19-2023 to 01-14-2024 Telephone Encounter - Rody García LPN - 08/07/2023 7:37 AM ESTTelephone Encounter - Rody García LPN - 08/07/2023 7:37 AM Piyush Killian MD - 08/02/2023 9:30 AM EST Note Date & Type Note Facility 01-14-2024 Note [place] [facility] Note Reason for cardiology [...] * Mild bibasi (more content not included)... [facility] 10-05-2023 Note HNO ID: [id number] Author: CELI RODRIGUES MD, PhD Service: ? [...] via US mail. PCP Woo Lerner MD [address] [facility] [address] [phone] CEREBROVASCULAR HISTORY Luma Davey is a very [...] 06/16/23: Took her horses to the [facility]. Once she had loaded the horse, she had new onset dizziness (spinning), no nausea, and fell to the left twice, no LOC, no injury to head or other body part. [place] fine right after. Drove home with her horse trailer and felt fine. 06/18/23: Called her PCP and was told to go to the ED. Went to the ED and was then transferred to [facility] Diagnosed with Left BBB bundle and AV [...] once daily. Ca Carb-Mag Cmb 11-D3-Zn Sulf [phone] gc-whbf-rd-mg tab Take by mouth once daily. No [...] drift Sensation: int (more content not included)... [facility] 09-24-2023 Note HNO ID: [id number] Author: SUSHILA KEANE MD Service: ? Author Type: Physician Type: Progress Notes Filed: 09/27/2023 21:48 Note Text: [facility] [place] [facility] Department of Cardiovascular Medicine SECTION OF CARDIOVASCULAR IMAGING OUTPATIENT VISIT DATE September 24, 2023 OUTPATIENT VISIT TYPE NEW (>3yr since last seen) CHIEF COMPLAINT: Further evaluation of valve disease HISTORY OF PRESENT ILLNESS: Ms. Davey is a 68 year old female from [place], [place] who presents for follow-up. Since last [...] once daily. Ca Carb-Mag Cmb 11-D3-Zn Sulf [phone] tr-gwlu-yw-mg tab Take by mouth once daily. naproxen [...] is a 68 year old female from [place], [place] who presents for follow-up. Since last [...] CONTACT INFORMATION: Sushila Keane MD, PhD, [facility] Lpn Home Healthrelief docking master, [facility] of Medicine of [facility], Staff, Section of Cardiovascular Imaging, Co-Director Cardio-Oncology Center, Patternmaker Hand of the Echocardiographic Lab, Dash [facility] Dept. Of Cardiovascular Medicine, [address] / [address] [place] [id number] Appt: [phone] [facility] 08-07-2023 Miscellaneous Notes Fax received from [employer] requesting refill of Escitalopram documented in this encounter [facility] 08-07-2023 Telephone encounter Note Fax received from [employer] requesting refill of Escitalopram [facility] 08-02-2023 History of Present illness Narrative Images from the original note were not included. [address] [facility] [address] SUBJECTIVE: Patient ID: Luma [...] brain Holter monitor documented in this encounter [employer] 07-24-2023 Note NM Electrophysiology Consult Note Reason for visit: bradycardia/2:1 av block s/p DC PPM 06/21/23 HPI: Luma Davey is a 68 y.o. 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 She has been experiencing [...] [] acetaminophen (T (more content not included)... [facility] 07-24-2023 Note Patient here for [facility] for bradycardia. She had PPM implant on 06/[address] Lindsey. She feels good s/p implant, with palpitations resolving. She has seen [facility] and [facility] in the past. Still has apt with [facility] in August 2023. Denies chest pain, SOB, and lightheadedness. Review of Systems All other systems reviewed and are negative. [facility] 07-05-2023 History of Present illness Narrative Images from the original note were not included. [address] [place] [address] SUBJECTIVE: Transition of Care Additional Questions/Concerns Requiring PCP Follow-Up: This documentation is being used for Transition of Care purposes: Yes Goal: Patient will demonstrate a safe transition from hospital to home. Diagnosis on Discharge: Symptomatic bradycardia History of mitral valve prolapse Perioral numbness Admission Diagnosis: Bradycardia [R00.1] Discharge Specialty: Cardiac Name of Discharging Facility: [facility] Date of Facility Discharge: 06/22/23 Date of Interactive Contact and Name of Psychological Operations Specialist: Spoke with Luma on 06/26/23 Medication Review [...] Vascular Center on 07/04/2023 Specialty: Cardiology- @ [place] office 07/24/23 @ 1:40 Specialty: Review of Pending Lab/Diagnostic Tests and Plan for Completion: 06/21/23: Implantation of pacemaker (Biotronik) Patient went to [place] ER on 06/24/23 for CP/severe heart burn. [...] you have signs of a heart attack; senior sql server dba CP, chest pressure, difficulty breathing, pain in arms, back or jaw, feeling faint or dizzy, and fast or irregular heartbeat. -CN contact information, Nela Phillips RN, can be reached at [phone] and will follow for a minimum of [...] cardiology Serial BP documented in this encounter [employer] 06-22-2023 Note Occupational Therapy Occupational Therapy Evaluation Patient Name: Luma [facility] : 1955 Today's Date: 06/22/2023 Time in:1105 Time out: 72720 Present Illness History: 67 y/o F presented to [facility] ED from [place] for management of cardiac needs. Patient found [...] Level of Function Prior Function Level of [place]: Independent with ADLs and functional transfers, Independent [...] comments: Patient comp (more content not included)... [facility] 06-22-2023 Note Hospital Medicine Discharge Summary [...] to have bradycardia. She was transferred to [facility] to be evaluated by cardiology. They reviewed her EKGs from [facility] and telemetry in our hospital which was showing episodes of 2-1 AV block, second-degree AV block Mobitz 2 and nonconducted PACs. Her propranolol was held and the patient continued to have lightheadedness/dizziness and bradycardia. The patient was also mentioning symptoms of perioral numbness and stroke team were consulted who reviewed her chart and they believe the symptoms are not related to central CHIEF DEPUTY CLERK/BAILIFF pathology. She had an echocardiogram which was [...] Time Provider Department Center 07/04/2023 7:30 AM [facility] CV CLINIC DEVICE CHECK HVC CARD UT [...] Medications These medications were sent to [facility] - [address] [place] [address] [facility] [place] [address], [facility] [address] acetaminophen 500 mg tablet amoxicillin-pot clavulanate 875-125 [...] was 35 minutes. Signed Austyn Lyons MD [facility] 06/22/2023 11:38 AM [facility] 06-22-2023 Note [facility] CARDIOLOGY INPAT IENT [...] diarrhea/vaginal yeast infection. Tele: mostly paced, occasional [place] beats ALLERGIES No Known Allergies CURRENT MEDS [...] Medications These medications were sent to [facility] - [place], [place] - [address] [place] [address] [place] [address], [facility] [address] acetaminophen 500 mg tablet amoxicillin-pot clavulanate 875-125 [...] Encounter Date: 06/19/23 (more content not included)... [facility] 06-21-2023 Note DUAL CHAMBER PACEMAK ER IMPLANT PROCEDURE NOTE DATE OF PROCEDURE: 06/21/23 PERFORMING PHYSICIAN: Dr. Pan Lindsey PROGRAM ADMIN: Dr Angella Silver CONSENT: Patient LOCATION: EP [...] propanlol, who presents as a transfer from [facility] for symptomatic bradycardia. She has been experiencing [...] using modified seldinger technique using a 5 Ghanaian micro-puncture needle on two occasions and 0.35 [...] for the device above the muscle. 6 Ghanaian Safesheaths were placed over the wire. An active fixation Biotronik pacing lead was then delivered through the 6Fsheath tothe right ventricle. After confirmation of lead position on orthogonal views (KIMBLE and WOLOF) to confirm septal position, the screw was [...] lead position on orthogonal views (KIMBLE and WOLOF), the screw was activated. Good sensing parameters, [...] any concerns. Pan Lindsey MD Cardiac Electrophysiology [facility] 06-21-2023 Note Patient: Luma Davey Procedure Information Date/Time: 06/21/23 1530 Procedure: Implant PPM - biventricular Location: [facility] DRY CLEANER 1 EP / [facility] (Cath) Providers: Pan Lindsey MD Clinical information reviewed: Tobacco Allergies Meds Med Hx Surg Hx Fam Hx Soc Hx Physical Exam Airway Mallampati: II TM distance: >3 FB Neck ROM: full Cardiovascular Dental Pulmonary Abdominal Anesthesia Plan ASA 3 Anesthetic plan and risks discussed with patient. Use of blood products discussed with patient who. Additional Equipment Requests [facility] 06-21-2023 Note Hospital Medicine Daily Progress Note - 06/21/2023 10:57 AM; Room: [address] [place] [address] Admission: 06/19/2023 10:34 AM; Length of stay: 2 days THE HOSPITALIST TEAM PREFERS TO USE [employer] CHAT FOR COMMUNICATION 7AM-7PM. IF I DO NOT RESPOND WITHIN 15 MINUTES, PLEASE PAGE ME/CALL THROUGH THE [employer]. FROM 7PM-7AM, PLEASE PAGE [phone](COVR) Code Status: Full Code Barriers to Discharge: [...] 2.78 06/19/2023 Lab Results Component Value Date [id number] 06/19/2023 IRON 20 (L) 06/20/2023 TIBC 386 06/20/2023 Imaging ECG 12 lead Normal sinus rhythm Left bundle branch block Abnormal ECG No previous ECGs available Confirmed by Pan Lindsey ([id number]) on 06/19/2023 6:24:21 PM Complete Echo (TTE) w/wo Imaging Agent, Strain, 3D, Bubble Study 1 [facility] Heart Station [address] [place] [address] [phone] (fax) Echocardiogram-[facility] Name: LUMA DAVEY Study Date: 06/19/2023 01:16 PM B/P: 115 mmHg/75 mmHg HR: Date of : 1955 Location: [facility] Height: 65 in. Age: 67 year(s) Patient [...] LVSVI, 2D 17 (more content not included)... [facility] 06-21-2023 Note Cardiology Progress Note Subjective Subjective: Luma Davey is a 67 y.o. female with past medical history of known LBBB, MVP with mild MR, palpitations on propanlol, who presents as a transfer from [facility] for symptomatic bradycardia. Patient states she chronically [...] Value Ventricular Rate 85 Atrial Rate 85 ME Interval 156 QRS DURATION 132 QT Interval 480 QTC CALCULATION(BAZETT) 571 P Southbridge 68 R-Southbridge 1 T Wave Southbridge 34 Impression Normal sinus rhythm Left bundle branch block Abnormal ECG No previous ECGs available Confirmed by Pan Lindsey ([id number]) on 06/19/2023 6:24:21 PM No results found for: CKTOTAL , CKMB , CKMBINDEX , TROPONINI Complete Echo (TTE) w/wo Imaging Agent, Strain, 3D, Bubble Study Result Date: 06/19/2023 1 1 [facility] Heart Station [address] [address] [phone] (fax) E[facility]ocardiogram-[facility] Name: LUMA DAVEY Study Date: 06/19/2023 01:16 PM B/P: 115 mmHg/75 mmHg HR: Date of : 1955 Location: [facility] Height: 65 in. Age: 67 year(s) Patient [...] Valve Label Value (more content not included)... [facility] 06-20-2023 Note Hospital Medicine Daily Progress Note - 06/20/2023 12:45 PM; Room: [address] [place] [address] Admission: 06/19/2023 10:34 AM; Length of stay: 1 days THE HOSPITALIST TEAM PREFERS TO USE [employer] FOR COMMUNICATION 7AM-7PM. IF I DO NOT RESPOND WITHIN 15 MINUTES, PLEASE PAGE ME/CALL THROUGH THE [employer] [place]. FROM 7PM-7AM, PLEASE PAGE [phone](COVR) Code Status: Full Code Barriers to Discharge: [...] 2.78 06/19/2023 Lab Results Component Value Date [id number] 06/19/2023 Imaging ECG 12 lead Normal sinus rhythm Left bundle branch block Abnormal ECG No previous ECGs available Confirmed by Pan Lindsey ([id number]) on 06/19/2023 6:24:21 PM Complete Echo (TTE) w/wo Imaging Agent, Strain, 3D, Bubble Study 1 1 [facility] Heart Station [address] [place] [address] [phone] (fax) E[facility]ocardiogram-[facility] Name: LUMA DAVEY Study Date: 06/19/2023 01:16 PM B/P: 115 mmHg/75 mmHg HR: Date of : 1955 Location: [facility] Height: 65 in. Age: 67 year(s) Patient [...] Label Value N (more content not included)... [facility] 06-20-2023 Note Attestation signed by Trudi Whipple MD at 06/20/2023 2:03 PM Case discussed with [facility]ULLER [facility]. Do not bill level of service. Primary to call back if they need a full consult. Trudi Whipple MD On 06/20/2023- Neurology Team and Stroke Team were asked by Primary service about Pt c/o Alis oral numbness for 1-2 week. Family and Pt concerned it was a neurological issues. Neurology [facility] discussed issue with Neurology Attending and Stroke [...] negative for acute intracranial abnormalities. Maral Mosqueda [facility] Neurology Inpatient [facility] 06-20-2023 Note Attestation signed by Vijay [...] tomorrow 06/21/2023 Vijay Sandoval MD, MPH, FACC, [facility], [facility] Interventional Cardiology Pager Email: [email or web address] Cardiology Progress Note Subjective Subjective: Luma Davey is a 67 y.o. female with past medical history of known LBBB, MVP with mild MR, palpitations on propanlol, who presents as a transfer from [facility] for symptomatic bradycardia. Patient states she chronically [...] Value Ventricular Rate 85 Atrial Rate 85 ME Interval 156 QRS DURATION 132 QT Interval 480 QTC CALCULATION(BAZETT) 571 P Southbridge 68 R-Southbridge 1 T Wave Southbridge 34 Impression Normal sinus rhythm Left bundle branch block Abnormal ECG No previous ECGs available Confirmed by Pan Lindsey ([id number]) on 06/19/2023 6:24:21 PM No results found for: CKTOTAL , CKMB , CKMBINDEX , TROPONINI Complete Echo (TTE) w/wo Imaging Agent, Strain, 3D, Bubble Study Result Date: 06/19/2023 1 1 [facility] Heart Station [address] [place] [address] [phone] (fax) Echocardiogram-[facility] Name: LUMA DAVEY Study Date: 06/19/2023 01:16 PM B/P: 115 mmHg/75 mmHg HR: Date of : 1955 Location: [facility] Height: 65 in. Age: 67 year(s) Patient [...] septum is abnorm (more content not included)... [facility] 06-19-2023 Note Hospital Medicine History and Physical 06/19/2023 12:31 PM THE HOSPITALIST TEAM PREFERS TO USE [employer] CHAT FOR COMMUNICATION 7AM-7PM. IF I DO NOT RESPOND WITHIN 15 MINUTES, PLEASE PAGE ME/CALL THROUGH THE [employer] [place]. FROM 7PM-7AM, PLEASE PAGE [phone](COVR) Chief Complaint No chief complaint on file. [...] this hospital stay by a member of [facility] Medicine. Past Medical History History reviewed. No pertinent past medical history. Past Surgical History Past Surgical History (more content not included)... [facility] Evaluation note Diagnosis Symptomatic bradycardia- Primary MVP (mitral valve prolapse) Mitral valve disorders LBBB (left bundle branch block) Other left bundle branch block documented in this encounter [facility] SystemEvaluation note* Diagnosis Transient ischemic attack (TIA)- Primary Unspecified transient cerebral ischemia Symptomatic bradycardia LBBB (left bundle branch block) Other left bundle branch block Facial weakness documented in this encounter [facility] SystemInstructionsNot on filedocumented in this encounter [facility] SystemInstructions* Attachments The following attachments cannot be sent through Care Everywhere. * Heart block in adults ([place]) documented in this encounterPro[facility] SystemInstructionsNot on file documented in this encounterProCentral [facility] SystemInstructionsNot on file documented in this encounterM[facility] Summary Purpose Family History No [...] Vas carotid duplex bilateral Woo Killian MD [address] [place] [address] Referral ID Status Reason Start Date Expiration Date V isits Requested Visits Authorized [id number] Pending Review 08/02/2023 08/01/2024 1 1 Specialty Diagnoses / Procedures Referred By Farhana t Referred To Contact Diagnoses Symptomatic bradycardia LBBB (left bundle branch block) Procedures Holter monitor 24-48 hour Woo Killian MD [address] [place] [address] Referral ID Status Reason Start Date Expiration Date V isits Requested Visits Authorized [id number] Pending Review 08/02/2023 08/01/2024 1 1 Specialty Diagnoses / Procedures Referred By Farhana t Referred To Contact Radiology Diagnoses Transient ischemic attack (TIA) Procedures MR brain without contrast Woo Killian MD [address] [place] [address] Referral ID Status Reason Start Date Expiration Date V isits Requested Visits Authorized [id number] Pending Review 08/02/2023 08/01/2024 1 1 Assessments [...] section and content) DATE CREATED AUTHOR 12/20/2017 [facility] DATE CREATED AUTHOR AUTHOR'S ORGANIZ ATION 12/24/2017 [facility] DATE CREATED AUTHOR AUTHOR'S ORGANIZ ATION 12/28/2017 [facility] DATE CREATED AUTHOR AUTHOR'S ORGANIZ ATION 01/18/2022 [facility] DATE CREATED AUTHOR AUTHOR'S ORGANIZ ATION 09/02/2023 [facility] DATE CREATED AUTHOR AUTHOR'S ORGANIZ ATION 10/14/2023 [facility] DATE CREATED AUTHOR AUTHOR'S ORGANIZ ATION 01/01/2024 [facility] DATE CREATED AUTHOR AUTHOR'S ORGANIZ ATION 01/18/2024 [facility] Medical History (unrecognize d section and [...] Care Teams (unrecognized sec tion and content) Dipper Machine Operator Relationship Specialty Start Date End Date Woo Killian MD [address] [place] [address] PCP - General Family Medicine 12/25/16 Dipper Machine Operator Relationship Specialty Start Date End Date Woo Killian MD [address] [place] [address] PCP - General Family Medicine 12/25/16 Dipper Machine Operator Relationship Specialty Start Date End Date Woo Killian MD [address] [place] [address] PCP - [facility] 12/25/16 Dipper Machine Operator Relationship Specialty Start Date End Date Woo Killian MD [address] [place], [place] [id number] PCP - General Family Medicine 12/25/16 FOR [...] BE BASED ON THE PRIMARY CLINICAL RECORDS. [facility]. provides no warranty or guarantee of the accuracy or completeness of information in this document.
[2024-02-20 06:40] VITALS: BP 138/74; PULSE 87; TEMP 36.2; O2SAT 97; BMI 28.2
[2024-02-20] MEDS: LACTATED RINGER'S SOLUTION 1,000 ML 50 ML IV (07:20)
--- NOTE | 2024-02-20 07:27 | PM.GSPRC ---
Date of procedure: 02/20/24 Indications for Procedure: rectal bleeding Pre-op diagnosis: rectal bleeding/family history of colon cancer in father Post-op diagnosis: other (colon polyps cecum and hepatic flexure 5mm each) Procedure: Colonoscopy with hot snare polyps cecum and hepatic flexure Findings: Colon polyps cecum and hepatic flexure Anesthesia: MAC Surgeon: Jaret Dorantes Procedure Summary: The patient was taken to the operating suite and placed in the left lateral position after being given IV conscious sedation as above. Rectal digital exam normal. No external? hemorrhoids noted. The Olympus video colonoscope was then advanced under direct visualization into the rectum, sigmoid colon, descending colon, transverse colon, and ascending colon to the ileocecal valve which was visualized.? There were no tumors, or diverticular disease seen. There was a polyp in the cecum which was snared and retrieved with hot snare and hemostasis maintained another polyp in the hepatic flexure which was snared and retrieved and hemostasis maintained. Appendiceal lumen was visualized. The scope was then slowly withdrawn with air being desufflated as the scope was withdrawn. There were no internal hemorrhoids or external hemorrhoids noted. The patient tolerated the procedure well and went to the recovery area in satisfactory condition. I would recommend surveillance colonoscopy in 5 years due to colon polyps and family history of colon cancer in father and less problems. Specimens went to pathology. Estimated blood loss (mL): 0 Complications: No Condition: stable Disposition: PACU
[2024-02-20 08:01] VITALS: BP 93/55; PULSE 74; TEMP 36.6; O2SAT 95
[2024-02-20 08:16] VITALS: BP 100/69; PULSE 77; O2SAT 95
[2024-02-20 08:31] VITALS: BP 115/54; PULSE 74; O2SAT 97
== END 2024-02-20 08:45 | disposition home or self-care (01) ==
PROVIDERS: PCP Family Medicine; Visit Provider Surgery
PROC: (CPT 45385; principal; 2024-02-20 07:30)
DX: K62.5 Hemorrhage of anus and rectum (principal); D12.0 Benign neoplasm of cecum; D12.3 Benign neoplasm of transverse colon; Z80.0 Family history of malignant neoplasm of digestive organs; Z87.891 Personal history of nicotine dependence; Z95.0 Presence of cardiac pacemaker; C53.9 Malignant neoplasm of cervix uteri, unspecified
CPT/HCPCS: 45385; 88305; J2704

== ENCOUNTER 2024-06-03 09:46 | Outpatient (OUT) | payer MEDICARE, SELFPAY ==
--- OUTSIDE RECORDS SUMMARY | 2024-06-03 10:05 | XMS_ITS | CCD ---
Author Organization [facility] Care Team Providers Care Corporate Learning Consultant Name Role Phone DBOUK, TAREK A Unavailable [...] WOO Unavailable Unavailable DEFRANCE, WOO Unavailable Unavailable NAAI, MAXIME M Unavailable Unavailable ANAI, MAXIME M [...] Unavailable Defrance Woo GONZALEZ Primary Care Provider [phone] WOO KILLIAN Referring Unavailable DEFRANCEWOO Primary Care [...] Unavailable DEFRANCE, WOO Muñoz Primary Care Unavailable KATKOKYLEE Referring Unavailable JAMIE, DEBI Admitting Unavailable SRI, AUSTYN Attending Unavailable AKBAR, LEX Attending Unavailable BARAZI, SOM Attending Unavailable CÉSAR, PAN Referring Unavailable BLANCA, SAKINA Referring Unavailable BLANCA, SAKINA Referring Unavailable SRI, AUSTYN Referring Unavailable BARAZI, SOM Referring Unavailable CÉSAR, PAN Referring Unavailable Allergies Allergy Classification Reported Allergen(s) Allergy Type Date of Onset Reaction(s) Facility (1 source) 48515,00 Drug allergy (disorder) 7 [facility] Repository (1 source) ALLERGIES NOT ON FILE; Translations: [ALLERGIES NOT ON FILE] Propensity to adverse reactions (disorder) [facility] Repository Medications Current Medications Medication Drug Class(es) Dates Sig (Normalized) Sig (Original) aspirin 81 mg delayed release oral tablet (3 sources) Platelet Aggregation Inhibitor, Nonsteroidal Anti-inflammatory Drug Start: 08-02-2023 take 1 tablet by mouth in the morning aspirin 81 mg Take 1 tablet (81 mg total) by mouth in the morning. 0 08/02/2023 Active [id number]-[id number] C ORAL (4 sources) take 1 capsule by mouth in the evening [id number]-[id number]-[id number] NC ORAL Take 1 capsule by mouth [...] Test Name Value Interpretation Reference Range Facility 36on 02-20-2024 36 Regarding labs from 01/12/2024: MD Kyra Solis MA Inform patient elevated LDL cholesterol. Start Lipitor 20 mg daily. Low-fat diet. Recheck lipids and ALT/ALT in 2 months. Spoke with patient and she prefers to make lifestyle modifications prior to starting a statin. I told her that was fine, and we'll recheck labs in 3 months. Patient verbalized understanding and agreement to this plan. I sent her lab orders in the mail. Normal [facility] Visiton 01-14[facility]2024 [id number] 1955 [facility] 01/14/2024 [id number]-AJRKMSLEX WEBBER Family History Problem Relation Age of Onset Other Mother Stroke Mother Stroke Father Valvular heart disease Father Atrial fibrillation Father Family Status - Relation Status Age at Mother Father Level of Service:95109 ID OFFICE/OUTPATIENT ESTABLISHED LOW MDM 20 MIN Normal [facility] CNOVon 10-05-2023 CNOV Office Visit (NECVS8 ) LUMA CARTER ([id number]) 1955 F Date Time Provider Department 10/05/23 [...] via US mail. PCP Woo Lerner MD [id number] [facility] [id number] CEREBROVASCULAR HISTORY Luma Carter is a very pleasant 68 year old [...] detected 06/16/23: Took her horses to the [facility]. Once she had loaded the horse, she had new onset dizziness (spinning), no nausea, and fell to the left twice, no LOC, no injury to head or other body part. Perry fine right after. Drove home with her horse trailer and felt fine. 06/18/23: Called her PCP and was told to go to the ED. Went to the ED and was then transferred to [facility] Diagnosed with Left BBB bundle and [...] once daily. Ca Carb-Mag Cmb 11-D3-Zn Sulf [phone] uj-bbcb-eh-mg tab Take by mouth once daily. No [...] No noted (more content not included)... Normal [facility] CNOVon 09-24-2023 CNOV Office Visit (KIMBER ) LUMA CARTER ([id number]) 1955 F Date Time Provider Department 09/24/23 12:30 PM SUSHILA KEANE During your visit today, we recorded the following information about you: Pulse Blood pressure Weight Height 89/minute 144/77 73.9 kg 1.66 m Sushila Keane MD 09/27/2023 9:48 PM Signed [facility] [place] [facility] Department of Cardiovascular Medicine SECTION OF CARDIOVASCULAR IMAGING OUTPATIENT VISIT DATE September 24, 2023 OUTPATIENT VISIT TYPE NEW (>3yr since last seen) CHIEF COMPLAINT: Further evaluation of valve disease HISTORY OF PRESENT ILLNESS: Ms. Carter is a 68 year old female from [place], [place] who presents for follow-up. Since last [...] once daily. Ca Carb-Mag Cmb 11-D3-Zn Sulf [phone] jp-vukk-io-mg tab Take by mouth once daily. naproxen [...] have personally reviewed the above. IMPRESSION: Ms. Carter is a 68 year old female from [place], [place] who presents for follow-up. Since last [...] CONTACT INFORMATION: Sushila Keane MD, PhD, [facility] Neonatal Specialistmovie editor, [facility], Staff, Section of Cardiovascular Imaging, Co-Director Cardio-Oncology Center, Transfer Knitter of the Echocardiographic Lab, [facility] Dept. Of Cardiovascular Medicine, [address] / [address] [place], [place] [address] Appt: [phone] Referring Provider: SUSHILA KEANE [[id number]] Allergies As of Date: 09/24/2023 (No Known Allergies) Date Reviewed: 09/24/2023 Reviewed by: Javier Leach MA - Fully Assessed Primary Visit Diagnosis:LBBB (left bundle branch block) [I44.7] Other Visit Diagnoses:Pacemaker [Z95.0] Nonrheumatic mitral valve regurgitation [I34.0] Order(s):CARDIOVASCULAR MEDICINE OP FOLLOW UP APPT ORDER [[id number]] Order #: [id number]: 1 FUTURE Prescriptions as of 09/27/2023 - [...] once daily (more content not included)... Normal [facility] ECG COMPLETEon 09-24-2023 ECG COMPLETE Ventricular Rate : 8 0 BPM Atrial Rate : 80 BPM P-R Interval : 192 ms QRS Duration : 136 ms Q-T Interval : 446 ms QTC Calculation(Bazett) : 514 ms Calculated P [place] : 58 degrees Calculated R [place] : -18 degrees Calculated T [place] : 27 degrees ATRIAL-PACED RHYTHM COMPLETE LEFT BUNDLE BRANCH BLOCK ABNORMAL ECG Confirmed by BABATUNDE WEAVER MD ([id number]) on 10/14/2023 6:43:06 PM NAME : LUMA CARTER PID : [id number] : 1955 Gender : Female Race : ORD : [id number] Procedure Date : Sep 24 2023 12:35:33 Edit Date : Oct 14 2023 18:43:10 Diagnosis: ATRIAL-PACED RHYTHM COMPLETE LEFT BUNDLE BRANCH BLOCK ABNORMAL ECG Confirmed by BABATUNDE WEAVER MD ([id number]) on 10/14/2023 6:43:06 PM Test Reason : Location : 314 : J14 J1-4 Overread By : BABATUNDE WEAVER MD Edited By : BABATUNDE WEAVER MD Referred By : SUSHILA KEANE Acquired by : MONA KRUSE [facility] MR BRAIN WO CONTon MR BRAIN WO [...] George MD on 08/31/2023 7:12 AM Normal [facility] Office Visiton 07-24-2023 Follow-up visit [id number] Luma Carter 1955 F Date Provider Department Center 07/24/2023 Ingrid-SOM HAMM Tony Cristian Family History Problem Relation Age of Onset Other Mother Stroke Mother Stroke Father Valvular heart disease Father Atrial fibrillation Father Family Status - Relation Status Age at Mother Father Level of Service:[id number] ID OFFICE/OUTPATIENT ESTABLISHED MOD MDM 30 MIN Normal [facility] 30on 06-22-2023 30 The patient [...] and behaviors that affect risk of falls [place] fall precautions as indicated by assessment Educate [...] antiarrhythmia medication and electrolyte replacement as ordered [facility] Letter (Out)on 06-22-2023 Letter (Out) [id number] Luma Carter 1955 F Date Provider Department Center 06/22/2023 [id number], GENERIC PRO*INIT None No family history on file [facility] 30on 06-21-2023 30 The patient is Moderately Stable - Low risk of patient condition declining or worsening The patient's goals for the shift include comfort The clinical goals for the shift include stable vitals Normal [facility] 30 The patient is Moderately Stable [...] fall injury Outcome: Progressing Flowsheets (Taken 06/21/2023 09) Free from fall injury: Assess patient frequently for physical needs Problem: Discharge Planning Goal: Discharge to home or other facility with appropriate resources Outcome: Progressing Flowsheets (Taken 06/21/2023 08) Discharge to home or other facility with [...] status, cognitive ability or social support system [facility] 30 Routine stress tests Patient information [...] and hemodynamically stable. Full final report from mold making supervisor to follow Shanta Robbins, LEONEL, WEAVE DEFECT CHARTING CLERK Stress Lab [facility] 30 Daily Case Managemen t Update [...] Consultation Consultation and Management 06/19/23 1148 Normal [facility] BASIC METABOLIC PANELon - Anion gap [Moles/Vol] 8 mmol/L Normal - [facility] Comment on above: Performed By: #### L AB15 ####[facility] (BEAKER)[address] [place] [address] Calcium [Mass/Vol] 9.0 mg/dL Normal 8.6-10.3 [facility] Comment on above: Performed By: #### L AB15 ####[facility] [place] [address] Chloride [Moles/Vol] 109 mmol/L High 98-107 [facility] Comment on above: Performed By: #### L AB15 ####[facility] ([facility])[address] [place] [address] CO2 [Moles/Vol] 24 mmol/L Normal 21-31 [facility] Comment on above: Performed By: #### L AB15 ####[facility] ([facility])[address] [place] [address] Creatinine [Mass/Vol] 1.05 mg/dL Normal 0.60-1.20 [facility] Comment on above: Performed By: #### L AB15 ####[facility] ([facility])[address] [place] [address] GLOMERULAR FILTRATION RATE ML/MIN/1.73 SQ M.PREDICTED 57.9 mL/min/1.73m*2 Low >60.0 [facility] Comment on above: Result Comment: [facility]???s estimated glomerular filtration rate (eGFR) [...] of individuals. Performed By: #### L AB15 ####[facility] ([facility] [place] [address] Glucose [Mass/Vol] 108 mg/dL High 70-100 [facility] Comment on above: Performed By: #### L AB15 ####[facility] ([facility])[address] [place] [address] Potassium [Moles/Vol] 4.2 mmol/L Normal 3.5-5.1 [facility] Comment on above: Performed By: #### L AB15 ####[facility] ([facility] [place] [address] Sodium [Moles/Vol] 137 mmol/L Normal 136-145 [facility] Comment on above: Performed By: #### L AB15 ####[facility] ([facility] [place] [address] Urea nitrogen [Mass/Vol] 25 mg/dL Normal 7-25 [facility] Comment on above: Performed By: #### L AB15 ####[facility] ([facility])[address] [place] [address] UREA NITROGEN/CREATININE (MASS RATIO) IN SER/PLAS 23.8 Normal [facility] Comment on above: Performed By: #### L AB15 ####[facility] ([facility] [place] [address] CBCon 06-21-2023 Erythrocyte distribution width (RBC) [Ratio] 12.7 % Normal 11.5-15.0 [facility] Comment on above: Performed By: #### L [id number] #### [facility] ([facility] [address] [place] [address] ERYTHROCYTE MEAN CORPUSCULAR HEMOGLOBIN CONCENTRATION (G/DL) BY AUTOMATED 33.4 g/dL Normal 32.0-35.0 [facility] Comment on above: Performed By: #### L [id number] #### [facility] [address] [place] [address] Hematocrit (Bld) [Volume fraction] 38.6 % Normal 36.0-48.0 [facility] Comment on above: Performed By: #### L [id number] #### [facility] ([facility] [address] [place] [address] Hemoglobin (Bld) [Mass/Vol] 12.9 g/dL Normal 12.0-15.0 [facility] Comment on above: Performed By: #### L [id number] #### [facility] ([facility] [address] [place] [address] MCH (RBC) [Entitic mass] 29.4 pg Normal 27.0-33.0 [facility] Comment on above: Performed By: #### L [id number] #### [facility] ([facility]) [address] [place] [address] MCV (RBC) [Entitic vol] 87.9 fL Normal 82.0-98.0 [facility] Comment on above: Performed By: #### L [id number] #### [facility] ([facility]) [address] [place] [address] PLATELETS (10*3/UL) IN BLOOD AUTOMATED COUNT 208 10*3/uL Normal 150-400 [facility] Comment on above: Performed By: #### L [id number] #### [facility] ([facility]) [address] [place] [address] RBC (Bld) [#/Vol] 4.39 10*6/uL Normal 3.80-5.00 [facility] Comment on above: Performed By: #### L [id number] #### [facility] ([facility]) [address] [place] [address] WBC (Bld) [#/Vol] 6.57 10*3/uL Normal 4.00-10.60 [facility] Comment on above: Performed By: #### L [id number] #### [facility] ([facility]) [address] [place] [address] 30on 06-20-2023 30 The patient is Moderately Stable - Low risk of patient condition declining or worsening The patient's goals for the shift include comfort The clinical goals for the shift include stable vitals Normal [facility] 30 Daily Case Managemen t [...] Consultation Consultation and Management 06/19/23 1148 Normal [facility] 30 Problem: Pain - Adul [...] fall injury Outcome: Progressing Flowsheets (Taken 06/20/2023 0800) Free from fall injury: Identify cognitive and physical deficits and behaviors that affect risk of falls Assess patient frequently for physical needs [place] fall precautions as indicated by assessment Educate patient/family on patient safety, including physical limitations Instruct patient to call for assistance with activity based on assessment Modify environment to reduce risk of injury Consider OT/PT consult to assist with strengthening/mobility Problem: Discharge Planning Goal: Discharge to home or other facility with appropriate resources Outcome: Progressing Flowsheets (Taken 06/20/2023 0815) Discharge to home or other facility with [...] Monitor la (more content not included)... Normal [facility] BASIC METABOLIC PANELon 12-2 Anion gap [Moles/Vol] 9 mmol/L Normal - [facility] Comment on above: Performed By: #### L AB15 #### [facility] ([facility]) [address] [place] [address] Calcium [Mass/Vol] 8.9 mg/dL Normal 8.6-10.3 [facility] Comment on above: Performed By: #### L AB15 #### [facility] ([facility] [address] [place] [address] Chloride [Moles/Vol] 107 mmol/L Normal 98-107 [facility] Comment on above: Performed By: #### L AB15 #### [facility] ([facility] [address] [place] [address] CO2 [Moles/Vol] 24 mmol/L Normal 21- [facility] Comment on above: Performed By: #### L AB15 #### [facility] (BEAKER) [address] [place] [address] Creatinine [Mass/Vol] 1.07 mg/dL Normal 0.60-1.20 [facility] Comment on above: Performed By: #### L AB15 #### [facility] ([facility] [address] [place] [address] GLOMERULAR FILTRATION RATE ML/MIN/1.73 SQ M.PREDICTED 56.6 mL/min/1.73m*2 Low >60.0 [facility] Comment on above: Result Comment: [facility]???s estimated glomerular filtration rate (eGFR) [...] individuals. Performed By: #### L AB15 #### [facility] ([facility]) [address] [place] [address] Glucose [Mass/Vol] 104 mg/dL High 70-100 [facility] Comment on above: Performed By: #### L AB15 #### [facility] ([facility]) [address] [place] [address] Potassium [Moles/Vol] 4.1 mmol/L Normal 3.5-5.1 [facility] Comment on above: Performed By: #### L AB15 #### [facility] ([facility]) [address] [place] [address] Sodium [Moles/Vol] 136 mmol/L Normal 136-145 [facility] Comment on above: Performed By: #### L AB15 #### [facility] ([facility]) [address] [place] [address] Urea nitrogen [Mass/Vol] 22 mg/dL Normal 7-25 [facility] Comment on above: Performed By: #### L AB15 #### [facility] ([facility]) [address] [place] [address] UREA NITROGEN/CREATININE (MASS RATIO) IN SER/PLAS 20.6 Normal [facility] Comment on above: Performed By: #### L AB15 #### [facility] ([facility]) [address] [place] [address] CBCon 06-20-2023 Erythrocyte distribution width (RBC) [Ratio] 12.7 % Normal 11.5-15.0 [facility] Comment on above: Performed By: #### L [id number] #### [facility] (BEAKER) [address] [place] [address] ERYTHROCYTE MEAN CORPUSCULAR HEMOGLOBIN CONCENTRATION (G/DL) BY AUTOMATED 33.8 g/dL Normal 32.0-35.0 [facility] Comment on above: Performed By: #### L [id number] #### [facility] (BEAKER) [address] [place] [address] Hematocrit (Bld) [Volume fraction] 37.9 % Normal 36.0-48.0 [facility] Comment on above: Performed By: #### L AB125 #### [facility] (BEAKER) [address] [place] [address] Hemoglobin (Bld) [Mass/Vol] 12.8 g/dL Normal 12.0-15.0 [facility] Comment on above: Performed By: #### L AB125 #### [facility] (BEAKER) [address] [place] [address] MCH (RBC) [Entitic mass] 29.7 pg Normal 27.0-33.0 [facility] Comment on above: Performed By: #### L AB125 #### [facility] (BEAKER) [address] [place] [address] MCV (RBC) [Entitic vol] 87.9 fL Normal 82.0-98.0 [facility] Comment on above: Performed By: #### L AB125 #### [facility] (BEAKER) [address] [place] [address] PLATELETS (10*3/UL) IN BLOOD AUTOMATED COUNT 216 10*3/uL Normal 150-400 [facility] Comment on above: Performed By: #### L [id number] #### [facility] (BEAKER) [address] [place] [address] RBC (Bld) [#/Vol] 4.31 10*6/uL Normal 3.80-5.00 [facility] Comment on above: Performed By: #### L AB125 #### [facility] (BEAKER) [address] [place] [address] WBC (Bld) [#/Vol] 8.85 10*3/uL Normal 4.00-10.60 [facility] Comment on above: Performed By: #### L AB125 #### [facility] ([facility]RICK) [address] [place] [address] CONSULTon 06-20-2023 CONSULT R [place] Electrophysiology Consult Note Reason for visit: Bradycardia: 2:1 AV block HPI: Luma Carter is a 67 y.o. year old with past medical history of LBBB, MVP with mild MR, palpitations on propanlol, who presents as a transfer from [facility] for symptomatic bradycardia. She has been [...] Murmur: n (more content not included)... Normal [facility] IRON AND TIBCon 06-20-2023 IRON (UG/DL) IN SER/PLAS 20 ug/dL Low 50-212 [facility] Comment on above: Performed By: #### L [id number] ####[facility] (BEAKER)[address] [place] [address] IRON BINDING CAPACITY (UG/DL) IN SER/PLAS 386 ug/dL Normal 250-450 [facility] Comment on above: Performed By: #### L [id number] ####[facility] (BEAKER)[address] [place] [address] IRON BINDING CAPACITY.UNSATURATE D (UG/DL) IN SER/PLAS 366.0 ug/dL High 155.0-355.0 [facility] Comment on above: Performed By: #### L [id number] ####[facility] (BEAKER)[address] [place] [address] IRON SATURATION (%) IN SER/PLAS 5 % Low 20-50 [facility] Comment on above: Performed By: #### L [id number] ####[facility] (BEAKER)[address] [place] [address] VITAMIN B1on 06-20-2023 VITAMIN B1, PLASMA 21 nmol/L High 4-15 [facility] Comment on above: Result Comment: INTE RPRETIVE DATA: Vitamin B1, Plasma Thiamine (vitamin B1) is reported. However, thiamine diphosphate (TDP), the biologically active form of thiamine, is not found in measurable concentrations in plasma, and is best determined in whole blood specimens. Plasma thiamine concentration reflects recent intake rather than body stores. This test was developed and its performance characteristics determined by [facility]. It has not been cleared or approved by the [place] Food and Drug Administration. This test was performed in a CLIA certified laboratory and is intended for clinical purposes. Performed By: [facility] [address] [place] [address] Poultry Farm Manager: Rocky Claros MD, PhD CLIA Number: [id number] Performed By: #### L AB125 #### [facility] [employer] [address] VITAMIN B6on 06-20-2023 VITAMIN B6 32.3 nmol/L Normal 20.0-125.0 [facility] Comment on above: Result Comment: INTE RPRETIVE INFORMATION: Vitamin B6 (Pyridoxal 5-Phosphate) Pyridoxal 5'-phosphate measured in a specimen collected following an 8-hour or overnight fast accurately indicates vitamin B6 nutritional status. Non-fasting specimen concentration reflects recent vitamin intake. This test was developed and its performance characteristics determined by [facility]. It has not been cleared or approved by the [place] Food and Drug Administration. This test was performed in a CLIA certified laboratory and is intended for clinical purposes. Performed By: [facility] [address] [place] [address] Poultry Farm Manager: Rocky Claros MD, PhD CLIA Number: [id number] Performed By: #### L AB120 #### [facility] [address] [place] [address] 30on 06-19-2023 30 The patient is Moderately [...] optimal renal function maintained Outcome: Progressing Normal [facility] 30 The patient is Moderately [...] including repeat lab results as appropriate Normal [facility] 30 Daily Case Managemen t Update Multidisciplinary rounds have been completed. Barriers to Discharge: Patient transferred from [facility] with dizziness, facial numbness and SOB. [...] Consultation Consultation and Management 06/19/23 1042 Normal [facility] BASIC METABOLIC PANELon 06-01 Anion gap [Moles/Vol] 11 mmol/L Normal 7-20 [facility] Comment on above: Performed By: #### L AB15 #### [facility] ([facility]) [address] [place] [address] Calcium [Mass/Vol] 8.9 mg/dL Normal 8.6-10.3 [facility] Comment on above: Performed By: #### L AB15 #### [facility] ([facility]) [address] [place] [address] Chloride [Moles/Vol] 106 mmol/L Normal 98-107 [facility] Comment on above: Performed By: #### L AB15 #### [facility] ([facility]) [address] [place] [address] CO2 [Moles/Vol] 23 mmol/L Normal 21-31 [facility] Comment on above: Performed By: #### L AB15 #### [facility] ([facility]) [address] [place] [address] Creatinine [Mass/Vol] 1.06 mg/dL Normal 0.60-1.20 [facility] Comment on above: Performed By: #### L AB15 #### [facility] ([facility]) [address] [place] [address] GLOMERULAR FILTRATION RATE ML/MIN/1.73 SQ M.PREDICTED 57.2 mL/min/1.73m*2 Low >60.0 [facility] Comment on above: Result Comment: [facility]???s estimated glomerular filtration rate (eGFR) [...] individuals. Performed By: #### L AB15 #### [facility] ([facility]) [address] [place] [address] Glucose [Mass/Vol] 132 mg/dL High 70-100 [facility] Comment on above: Performed By: #### L AB15 #### [facility] ([facility]) [address] [place] [address] Potassium [Moles/Vol] 4.1 mmol/L Normal 3.5-5.1 [facility] Comment on above: Performed By: #### L AB15 #### [facility] ([facility]) [address] [place] [address] Sodium [Moles/Vol] 136 mmol/L Normal 136-145 [facility] Comment on above: Performed By: #### L AB15 #### [facility] ([facility]) [address] [place] [address] Urea nitrogen [Mass/Vol] 26 mg/dL High 7-25 [facility] Comment on above: Performed By: #### L AB15 #### [facility] ([facility]) [address] [place] [address] UREA NITROGEN/CREATININE (MASS RATIO) IN SER/PLAS 24.5 Normal [facility] Comment on above: Performed By: #### L AB15 #### [facility] ([facility]) [address] [place] [address] CBCon 06-19-2023 Erythrocyte distribution width (RBC) [Ratio] 12.8 % Normal 11.5-15.0 [facility] Comment on above: Performed By: #### L AB125 #### [facility] ([facility]) [address] [place] [address] ERYTHROCYTE MEAN CORPUSCULAR HEMOGLOBIN CONCENTRATION (G/DL) BY AUTOMATED 33.3 g/dL Normal 32.0-35.0 [facility] Comment on above: Performed By: #### L AB125 #### [facility] ([facility]) [address] [place] [address] Hematocrit (Bld) [Volume fraction] 37.5 % Normal 36.0-48.0 [facility] Comment on above: Performed By: #### L AB125 #### [facility] ([facility]) [address] [place] [address] Hemoglobin (Bld) [Mass/Vol] 12.5 g/dL Normal 12.0-15.0 [facility] Comment on above: Performed By: #### L AB125 #### [facility] ([facility]) [address] [place] [address] MCH (RBC) [Entitic mass] 29.5 pg Normal 27.0-33.0 [facility] Comment on above: Performed By: #### L AB125 #### [facility] ([facility]) [address] [place] [address] MCV (RBC) [Entitic vol] 88.4 fL Normal 82.0-98.0 [facility] Comment on above: Performed By: #### L AB125 #### [facility] [address] [place] [address] PLATELETS (10*3/UL) IN BLOOD AUTOMATED COUNT 233 10*3/uL Normal 150-400 [facility] Comment on above: Performed By: #### L AB125 #### [facility] ([facility]) [address] [place] [address] RBC (Bld) [#/Vol] 4.24 10*6/uL Normal 3.80-5.00 [facility] Comment on above: Performed By: #### L AB125 #### [facility] ([facility]) [address] [place] [address] WBC (Bld) [#/Vol] 8.35 10*3/uL Normal 4.00-10.60 [facility] Comment on above: Performed By: #### L AB125 #### [facility] ([facility]) [address] [facility] [place] [address] CONSULTon 06-19-2023 CONSULT --- Attestation signed by [...] her daughter regarding her presentation. EKGs from [facility] and telemetry here show episodes of 2-1 [...] accident/transient ischemic attack. Vijay Sandoval MD, MPH, FACC, [facility], [facility] Interventional Cardiology Pager Email: [email or web address] Cardiology Consult Note Reason for Consult: Bradycardia HPI: Luma Carter is a 67 y.o. female with past medical history of known LBBB, MVP with mild MR, palpitations on propanlol, who presents as a transfer from [facility] for symptomatic bradycardia. Patient states she chronically has dizziness that comes in episodes. However, on Saturday, her episode was persistent. Saturday 06/16, she [...] Value Ventricular Rate 85 Atrial Rate 85 ID Interval 156 QRS DURATION 132 QT Interval 480 QTC CALCULATION(BAZETT) 571 P [place] 68 R-[place] 1 T Wave [place] 34 Impression Normal sinus rhythm Left bundle [...] of BP (more content not included)... Normal [facility] FOLATEon 06-19-2023 FOLATE (NG/ML) IN SER/PLAS 27.00 ng/mL Normal 6.6-1000 [facility] Comment on above: Performed By: #### L AB69 #### [facility] ([facility]) [address] [place] [address] FOLATE (NG/ML) IN SER/PLAS 29.00 ng/mL Normal 6.6-1000 [facility] Comment on above: Performed By: #### L AB69 ####[facility] ([facility])[address] [place] [address] Letter (Out)on 06-19-2023 Letter (Out) [id number] Luma Carter 1955 F Date Provider Department Center 06/19/2023 [id number], GENERIC PRO*INIT None No family history on file Normal [facility] MAGNESIUMon 06-19-2023 Magnesium [Mass/Vol] 1.7 mg/dL Low 1.9-2.7 [facility] Comment on above: Performed By: #### L AB103 #### [facility] ([facility]) [address] [place] [address] METHYLMALONIC ACID, SERUMon 06-19-2023 METHYLMALONIC ACID, S 0.18 umol/L Normal 0.00-0.40 [facility] Comment on above: Result Comment: INTE RPRETIVE INFORMATION: MMA Serum/Plasma, Vitamin B12 Status This test was developed and its performance characteristics determined by [employer]. It has not been cleared or approved by the US Food and Drug Administration. This test was performed in a CLIA certified laboratory and is intended for clinical purposes. Performed By: [employer] [facility] [address] [place] [address] Poultry Farm Manager: Rocky Claros MD, PhD CLIA Number: [id number] Performed By: #### L AB125 #### [facility] ([facility]) [address] [place] [address] TSH3 REFLEX TO FT4on 023 THYROTROPIN (MIU/L) IN SER/PLAS BY DETECTION LIMIT <= 0.05 MIU/L 2.78 mIU/L Normal 0.34-5.60 [facility] Comment on above: Performed By: #### L AB125 #### [facility] ([facility]) [address] [place] [address] VITAMIN B1on 06-19-2023 VITAMIN B1, PLASMA 23 nmol/L High 4-15 [facility] Comment on above: Result Comment: INTE RPRETIVE DATA: Vitamin B1, Plasma Thiamine (vitamin B1) is reported. However, thiamine diphosphate (TDP), the biologically active form of thiamine, is not found in measurable concentrations in plasma, and is best determined in whole blood specimens. Plasma thiamine concentration reflects recent intake rather than body stores. This test was developed and its performance characteristics determined by [employer]. It has not been cleared or approved by the [place] Food and Drug Administration. This test was performed in a CLIA certified laboratory and is intended for clinical purposes. Performed By: [employer] [facility] [facility] [address] [place] [address] Poultry Farm Manager: Rocky Claros MD, PhD CLIA Number: [id number] Performed By: #### L AB125 #### [facility] ([facility]) [address] [place] [address] VITAMIN B12on 06-19-2023 Cobalamin (Vitamin B12) [Mass/Vol] 437 pg/mL Normal 180-914 [facility] Comment on above: Result Comment: REFE RENCE RANGES: 180-914 pg/mL Normal 145-179 pg/mL Indeterminate <145 pg/mL Deficient Performed By: #### L AB125 #### [facility] ([facility]) [address] [place] [address] VITAMIN B6on 06-19-2023 VITAMIN B6 66.5 nmol/L Normal 20.0-125.0 [facility] Comment on above: Result Comment: INTE RPRETIVE INFORMATION: Vitamin B6 (Pyridoxal 5-Phosphate) Pyridoxal 5'-phosphate measured in a specimen collected following an 8-hour or overnight fast accurately indicates vitamin B6 nutritional status. Non-fasting specimen concentration reflects recent vitamin intake. This test was developed and its performance characteristics determined by [employer]. It has not been cleared or approved by the US Food and Drug Administration. This test was performed in a CLIA certified laboratory and is intended for clinical purposes. Performed By: [facility] [address] [place] [address] Poultry Farm Manager: Rocky Claros MD, PhD CLIA Number: [id number] Performed By: #### L AB125 #### [facility] ([facility]) [address] [id number] CBC AUTO DIFFon 01-12-2022 BASO # 0.0 103/ul Normal 0.0-0.1 [facility] Comment on above: Performed By: #### C BC #### [facility] [address] [place] [address] Dr. Anurag Solano Basophils/100 WBC (Bld) 0.4 % Normal 0.2-2.0 [facility] Comment on above: Performed By: #### C BC #### [facility] [address] [address] [address] Anurag Solano EO # 0.2 103/ul Normal 0.0-0.7 [facility] Comment on above: Performed By: #### C BC #### [facility] [address] [place] [address] Dr. Anurag Solano Eosinophils/100 WBC (Bld) 2.9 % Normal 0.9-7.0 [facility] Comment on above: Performed By: #### C BC #### [facility] [address] [place] [address] Dr. Anurag Solano Erythrocyte distribution width (RBC) [Ratio] 12.4 % Normal 11.0-15.0 [facility] Comment on above: Performed By: #### C BC #### [facility] [address] [place] [address] Dr. Anurag Solano Hematocrit (Bld) [Volume fraction] 41.0 % Normal 36.0-48.0 [facility] Comment on above: Performed By: #### C BC #### [facility] [address] [place] [address] Dr. Anurag Solano Hemoglobin (Bld) [Mass/Vol] 13.3 g/dL Normal 12.0-16.0 [facility] Comment on above: Performed By: #### C BC #### [facility] [address] [place] [address] Dr. Anurag Solano IG # 0.02 10e3/ul Normal 0.00-0.03 [facility] Comment on above: Performed By: #### C BC #### [facility] [address] [place] [address] Dr. Anurag Solano IG % 0.3 % Normal 0.0-0.5 [facility] Comment on above: Performed By: #### C BC #### [facility] [address] [place] [address] Dr. Anurag Solano LYMPH # 2.2 103/ul Normal 1.2-3.8 [facility] Comment on above: Performed By: #### C BC #### [facility] [address] [place] [address] Dr. Anurag Solano Lymphocytes/100 WBC (Bld) 30.1 % Normal 20.5-60.0 [facility] Comment on above: Performed By: #### C BC #### [facility] [address] [place] [address] Dr. Anurag Solano MANUAL DIFF REQ NO Normal [facility] Comment on above: Performed By: #### C BC #### [facility] [address] [place] [address] Dr. Anurag Solano MCH (RBC) [Entitic mass] 29.8 pg Normal 26.7-34.0 [facility] Comment on above: Performed By: #### C BC #### [facility] [address] [place] [address] Dr. Anurag Solano MCHC (RBC) [Mass/Vol] 32.4 g/dL Normal 29.9-35.2 [facility] Comment on above: Performed By: #### C BC #### [facility] [address] [place] [address] Dr. Anurag Solano MCV (RBC) [Entitic vol] 91.7 fL Normal 81.0-99.0 [facility] Comment on above: Performed By: #### C BC #### [facility] [address] [place] [address] Dr. Anurag Solano MONO # 0.6 103/ul Normal 0.3-0.8 [facility] Comment on above: Performed By: #### C BC #### [facility] [address] [place] [address] Dr. Anurag Solano Monocytes/100 WBC (Bld) 7.7 % Normal 1.7-12.0 [facility] Comment on above: Performed By: #### C BC #### [facility] [address] [place] [address] Dr. Anurag Solano NEUT # 4.3 103/ul Normal 1.4-6.5 [facility] Comment on above: Performed By: #### C BC #### [facility] [address] [place] [address] Dr. Anurag Solano Neutrophils/100 WBC (Bld) 58.6 % Normal 43.0-75.0 [facility] Comment on above: Performed By: #### C BC #### [facility] [address] [place] [address] Dr. Anurag Solano Platelet mean volume (Bld) [Entitic vol] 9.4 fL Critically low 9.5-13.5 [facility] Comment on above: Performed By: #### C BC #### [facility] [address] [place] [address] Dr. Anurag Solano PLT 282 103/ul Normal 150-450 [facility] Comment on above: Performed By: #### C BC #### [facility] [address] [place] [address] Dr. Anurag Solano RBC 4.47 106/ul Normal 4.20-5.40 [facility] Comment on above: Performed By: #### C BC #### [facility] [address] [place] [address] Dr. Anurag Solano WBC 7.3 103/ul Normal 4.0-11.0 [facility] Comment on above: Performed By: #### C BC #### [facility] [address] [place] [address] Dr. Anurag Solano FREE T4on 01-12-2022 Free T4 [Mass/Vol] 0.89 ng/dL Normal 0.76-1.46 [facility] Comment on above: Performed By: #### F T4 #### [facility] [address] [place] [address] Dr. Anurag Solano LIPID PROFILEon 01-12-2022 CHOL-HDL RATIO NORM SEE BELOW Normal [facility] Comment on above: Result Comment: 3.3 - 4.4 LOW RISK 4.4 - 7.1 AVERAGE RISK 7.1 - 11.0 MODERATE RISK >11.0 HIGH RISK Performed By: #### C MP, TSH, LIPID #### [facility] [address] [place] [address] Dr. Anurag Solano Cholesterol [Mass/Vol] 213 mg/dL Critically high <=200 [facility] Comment on above: Performed By: #### C MP, TSH, LIPID #### [facility] [address] [place] [address] Dr. Anurag Solano Cholesterol in HDL [Mass/Vol] 44 mg/dL Normal 40-60 [facility] Comment on above: Performed By: #### C MP, TSH, LIPID #### [facility] [address] [address] [address] Anurag Solano Cholesterol in LDL [Mass/Vol] 143.2 mg/dL Normal [facility] Comment on above: Performed By: #### C MP, TSH, LIPID #### [facility] [address] [address] [address] Anurag Solano Cholesterol.total/C holesterol in HDL [Mass ratio] 4.8 {ratio} Normal [facility] Comment on above: Performed By: #### C MP, TSH, LIPID #### [facility] [address] [address] [address] Anurag Solano HDL NORMAL > or = 60 mg/dl - LO W CARDIOVASCULAR RISK <40 mg/dl - HIGH CARDIOVASCULAR RISK Normal [facility] Comment on above: Performed By: #### C MP, TSH, LIPID #### [facility] [address] [place] [address] Dr. Anurag Solano LDL CALC NORMAL SEE BELOW Normal [facility] Comment on above: Result Comment: <100 mg/dl OPTIMAL 100 - 129 mg/dl NEAR OR ABOVE OPTIMAL 130 - 159 mg/dl BORDERLINE HIGH 160 - 189 mg/dl HIGH >190 mg/dl VERY HIGH Performed By: #### C MP, TSH, LIPID #### [facility] [address] [address] [address] Anurag Solano Triglyceride [Mass/Vol] 129 mg/dL Normal <=150 [facility] Comment on above: Performed By: #### C MP, TSH, LIPID #### [facility] [address] [address] [address] Anurag Solano VLDL CALC 25.8 mg/dL Normal [facility] Comment on above: Performed By: #### C MP, TSH, LIPID #### [facility] [address] [address] [address] Anurag Solano PROF 14(COMP METB)on 022 Albumin [Mass/Vol] 3.6 g/dL Normal 3.4-5.0 [facility] Comment on above: Performed By: #### C MP, TSH, LIPID #### [facility] [address] [address] [address] Anurag Solano Albumin/Globulin [Mass ratio] 1.1 {ratio} Normal [facility] Comment on above: Performed By: #### C MP, TSH, LIPID #### [facility] [address] [address] [address] Anurag Solano ALP [Catalytic activity/Vol] 107 U/L Normal 46-116 [facility] Comment on above: Performed By: #### C MP, TSH, LIPID #### [facility] [address] [address] [address] Anurag Solano ALT [Catalytic activity/Vol] 19 U/L Normal 14-59 [facility] Comment on above: Performed By: #### C MP, TSH, LIPID #### [facility] [address] [address] [address] Anurag Solano Anion gap [Moles/Vol] 8.3 mmol/L Normal [facility] Comment on above: Performed By: #### C MP, TSH, LIPID #### [facility] [address] [place] [address] Dr. Anurag Solano AST [Catalytic activity/Vol] 17 U/L Normal 15-37 [facility] Comment on above: Performed By: #### C MP, TSH, LIPID #### [facility] [address] [address] [address] Anurag Solano Bilirubin [Mass/Vol] 0.3 mg/dL Normal 0.2-1.0 [facility] Comment on above: Performed By: #### C MP, TSH, LIPID #### [facility] [address] [place] [address] Dr. Anurag Solano Calcium [Mass/Vol] 8.7 mg/dL Normal 8.5-10.1 [facility] Comment on above: Performed By: #### C MP, TSH, LIPID #### [facility] [address] [place] [address] Dr. Anurag Solano Chloride [Moles/Vol] 106 mmol/L Normal 98-107 [facility] Comment on above: Performed By: #### C MP, TSH, LIPID #### [facility] [address] [address] [address] Anurag Solano CO2 [Moles/Vol] 30.3 mmol/L Normal 21.0-32.0 [facility] Comment on above: Performed By: #### C MP, TSH, LIPID #### [facility] [address] [place] [address] Dr. Anurag Solano Creatinine [Mass/Vol] 1.16 mg/dL Critically high 0.55-1.02 [facility] Comment on above: Performed By: #### C MP, TSH, LIPID #### [facility] [address] [place] [address] Dr. Anurag Solano EGFR-AF GIBRALTARIAN 56 mL/min/1.73m2 Critically low >=60 [facility] Comment on above: Performed By: #### C MP, TSH, LIPID #### [facility] [address] [place] [address] Dr. Anurag Solano EGFR-NON AF GIBRALTARIAN 47 mL/min/1.73m2 Critically low >=60 [facility] Comment on above: Performed By: #### C MP, TSH, LIPID #### [facility] [address] [place] [address] Dr. Anurag Solano Globulin (S) [Mass/Vol] 3.3 g/dL Normal [facility] Comment on above: Performed By: #### C MP, TSH, LIPID #### [facility] [address] [place] [address] Dr. Anurag Solano Glucose [Mass/Vol] 105 mg/dL Normal 74-106 [facility] Comment on above: Performed By: #### C MP, TSH, LIPID #### [facility] [address] [place] [address] Dr. Anurag Solano Potassium [Moles/Vol] 4.6 mmol/L Normal 3.5-5.1 [facility] Comment on above: Performed By: #### C MP, TSH, LIPID #### [facility] [address] [address] [address] Anurag Solano Protein [Mass/Vol] 6.9 g/dL Normal 6.4-8.2 [facility] Comment on above: Performed By: #### C MP, TSH, LIPID #### [facility] [address] [address] [address] Anurag Solano Sodium [Moles/Vol] 140 mmol/L Normal 136-145 [facility] Comment on above: Performed By: #### C MP, TSH, LIPID #### [facility] [address] [address] [address] Anurag Solano Urea nitrogen [Mass/Vol] 21.0 mg/dL Critically high 7.0-18.0 [facility] Comment on above: Performed By: #### C MP, TSH, LIPID #### [facility] [address] [address] [address] Anurag Solano Urea nitrogen/Creatinine [Mass ratio] 18.1 mg/mg Normal [facility] Comment on above: Performed By: #### C MP, TSH, LIPID #### [facility] [address] [address] [address] Anurag Solano TSHon 01-12-2022 TSH 4.450 uIU/mL Critically high 0.358-3.740 [facility] Comment on above: Performed By: #### C MP, TSH, LIPID #### [facility] [address] [address] [address] Anurag Solano Basic Metabolic Panelon 03-2 Anion gap 8 mmol/L Normal 7-13 [facility] Calcium 10.0 mg/dL Normal 8.6-10.2 [facility] Chloride 103 mmol/L Normal 98-107 [facility] CO2 30 mmol/L Critically high 22-29 [facility] Creatinine 0.88 mg/dL Normal 0.50-0.90 [facility] eGFR (black) mL/min/{1.73_m2} Normal >60 [facility] Comment on above: Result Comment: >60 mL/min/1.73m2 EGFR, calc. for ages 18 and older using theMDRD formula (not corrected for weight), is valid for stablerenal function. eGFR (MDRD) mL/min/{1.73_m2} Normal >60 [facility] Comment on above: Result Comment: >60 mL/min/1.73m2 EGFR, calc. for ages 18 and older using theMDRD formula (not corrected for weight), is valid for stablerenal function. Glucose mass conc 99 mg/dL Normal 74-109 [facility] Potassium molar conc 4.9 mmol/L Normal 3.5-5.1 [facility] Sodium 141 mmol/L Normal 132-144 [facility] Urea nitrogen 22 mg/dL Normal 8-23 [facility] CBC With Platelet No Differe ntialon 09-24-2017 Erythrocyte distribution width Auto Ratio (RBC) 13.2 % Normal 11.5-14.5 [facility] Erythrocytes (RBC) 4.37 10*6/uL Normal 4.20-5.40 [facility] Hematocrit (HCT) 39.9 % Normal 37.0-47.0 [facility] Hemoglobin mass conc (Bld) 13.4 g/dL Normal 12.0-16.0 [facility] MCH 30.6 pg Normal 27.0-31.3 [facility] MCHC mass conc (RBC) 33.5 % Normal 33.0-37.0 [facility] MCV 91.4 fL Normal 82.0-100.0 [facility] Platelets 256 10*3/uL Normal 130-400 [facility] WBC (Leukocytes) 7.3 10*3/uL Normal 4.8-10.8 [facility] Extra Tube, Blood Bankon Bilirubin (total) PATIENT: PETAR VILLALOBOS LOC: [facility] BILL# : [id number] : 1955 SEX: FORDERED BY: SHAKIR FERMIN ORDERED : 09/24/2017 14:13 COLLECTED: 09/24/2017 13:52ORDER : [id number] RECEIVED : 09/24/2017 13:52 TEST NAME RESULT UNITS RANGES ABN FL STExtra Tube, Blood Bank ADEEL F --------- [facility] RBC LRon 09-24-2017 Erythrocytes (RBC) PATIENT: PETAR VILLALOBOS LOC: [facility] BILL# : [id number] : 1955 SEX: FORDERED BY: SHAKIR FERMIN ORDERED : 09/26/2017 13:35 COLLECTED: 09/24/2017 13:52ORDER : [id number] RECEIVED : 09/24/2017 13:52 TEST NAME RESULT UNITS RANGES ABN FL STRBC LR [id number] RBC LR W0 F --------- [facility] Type and Screen Capture 3 sc rn cellon 09-24-2017 Bilirubin (total) PATIENT: PETAR VILLALOBOS LOC: [facility] BILL# : [id number] : 1955 SEX: FORDERED BY: SHAKIR FERMIN ORDERED : 09/24/2017 11:58 COLLECTED: 09/24/2017 13:52ORDER : [id number] RECEIVED : 09/24/2017 13:52 TEST NAME RESULT UNITS RANGES ABN FL STABORH Capture O POS FAntibody 3 Cell Scrn Captu NEG F --------- Normal [facility] Culture, Urineon 08-10-2017 Culture, Urine ORDERED BY: LINDA SCHILLING: Urine Clean Catch COLLECTED: 08/10/17 14:46ANTIBIOTICS AT ADEEL.: RECEIVED : 08/10/17 15:13Culture, Urine FINAL 08/12/17 07:48 No growth 24 hours Normal [facility] Urinalysis, reflex to micros copicon 08-10-2017 Bilirubin Ql (U) Negative Normal Negative [facility] Urine, clarity CLOUDY Abnormal Clear [facility] Urine, color Yellow Normal Straw/[facility] Urine, glucose presence Negative Normal Negative [facility] Urine, hemoglobin presence LARGE Abnormal Negative [facility] Urine, ketones presence Negative Normal Negative [facility] Urine, leukocyte esterase presence Negative Normal Negative [facility] Urine, nitrite presence Negative Normal Negative [facility] Urine, pH 5.0 [pH] Normal 5.0-9.0 [facility] Urine, protein presence Negative Normal Negative [facility] Urine, specific gravity 1.031 Normal 1.005-1.03 [facility] Urine, urobilinogen 0.2 {Jigar'U}/dL Normal < 2.0 [facility] Urine Microscopicon 08-10-19 18 Urine, bacteria in sediment Many Normal [facility] Urine, epithelial cells presence in sediment 3-5 Normal [facility] Urine, erythrocytes 10-20 Abnormal 0-2 [facility] Urine, leukocytes 0-2 Normal 0-5 [facility] PELVIS 1 OR 2 VWSon 03-16-20 17 PELVIS 1 OR 2 [facility] [address] [place] [address] =====Patient Name: LUMA CARTER : 1955Sex: FAge: Race: WhiteMRN: [id number]. 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 Ortho follow up. QUESTION FOR THE RADIOLOGIST: , , Views (X-RAY, PELVIS): Radiologic Protocol , , , Ordering Edward LEACH PA-C , PROTOCOL: AP(PA) view was obtained. 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 Transcribed by: [email or web address], User Resident: Electronically Signed by: ADDY HERNANDEZ @ 03/16/2017 02:12 PM Normal [facility] Comment on above: Order Comment: , , V iews (X-RAY, PELVIS): Radiologic Protocol , , , Ordering Provider - MAXIME LEACH PA-C , PELVIS 1 OR 2 [facility] 02-24-20 17 PELVIS 1 OR 2 [facility] [address] [place] [address] =====Patient Name: LUMA CARTER : 1955Sex: FAge: Race: WhiteMRN: [id number]. 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 Patient complains of pain in pelvis and in her tailbone when sitting. History of pelvis surgery on 10/24/2016. QUESTION FOR THE RADIOLOGIST: , , Views (X-RAY, PELVIS): AP , , , Ordering Edward - MAXIME LEACH PA-C , PROTOCOL: AP(PA) view was obtained. COMPARISON: January 11, 2017 FINDINGS: Soft tissues:Unchanged Bones:Unchanged Joints:Unchanged IMPRESSION: Stable plate fixation across symphysis pubis with residual widening of approximately 15 mm and unchanged sclerosis along the SI joints Electronically signed by:Addy Hernandez. Transcribed by: [email or web address], User Resident: Electronically Signed by: ADDY HERNANDEZ @ 02/23/2017 01:09 PM Normal [facility] Comment on above: Order Comment: , , V iews (X-RAY, PELVIS): AP , , , Ordering Provider Otto KAN-C , PELVIS 1 OR 2 VWSon 01-12-20 17 PELVIS 1 OR 2 VWS [facility] [address] [place] [address] =====Patient Name: LUMA CARTER : 1955Sex: FAge: Race: WhiteMRN: [id number]. 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 Slight widening of the symphysis pubis is unchanged from the prior study. The remainder of the bony ring of the pelvis is intact. 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 Electronically signed by:Aaron Rodgers. Transcribed by: [email or web address], User Resident: Electronically Signed by: AARON RODGERS @ 01/11/2017 03:00 PM Normal [facility] Comment on above: Order Comment: , , V iews (X-RAY, PELVIS): Radiologic Protocol , , , Ordering Provider - MAXIME LEACH PA-C , Vital Signs Date Time Vital Sign Value Performing Clinician Faci lity 08-02-2023 09:08-0500 Body height 165.1 cm Woo Killain MD Work Phone: [facility] 08-02-2023 09:08-0500 Body mass index (BMI) [Ratio] 27.96 kg/m2 oWo Killian MD Work Phone: [facility] 08-02-2023 09:08-0500 Body weight 76.2 kg Woo Killian MD Work Phone: [facility] 08-02-2023 09:08-0500 Diastolic blood pressure 80 mm[Hg] Woo Killian MD Work Phone: [facility] 08-02-2023 09:08-0500 Heart rate 72 /min Woo Killian MD Work Phone: [facility] 08-02-2023 09:08-0500 Respiratory rate 16 /min Woo Killian MD Work Phone: [facility] 08-02-2023 09:08-0500 Systolic blood pressure 120 mm[Hg] Woo Killian MD Work Phone: [facility] 07-05-2023 13:41-0500 Body height 165.1 cm Woo Killian MD Work Phone: [facility] 07-05-2023 13:41-0500 Body mass index (BMI) [Ratio] 28.87 kg/m2 Woo Killian MD Work Phone: [facility] 07-05-2023 13:41-0500 Body weight 78.7 kg Woo Killian MD Work Phone: [facility] 07-05-2023 13:41-0500 Diastolic blood pressure 80 mm[Hg] Woo Killian MD Work Phone: [facility] 07-05-2023 13:41-0500 Heart rate 88 /min Woo Killian MD Work Phone: [facility] 07-05-2023 13:41-0500 Respiratory rate 16 /min Woo Killian MD Work Phone: [facility] 07-05-2023 13:41-0500 Systolic blood pressure 146 mm[Hg] Woo Killian MD Work Phone: [facility] Encounters Encounter Date Encounter Type Care Provider Facility Start: 01-17-2024 End: 01-17-2024 ambulatory [facility] Start: 01-14-2024 End: 01-14-2024 ambulatory [facility] Start: 12-31-2023 End: 12-31-2023 ambulatory [facility] Yao HARTMANN [facility] Start: 12-25-2023 End: 12-25-2023 ambulatory [facility] Start: 12-25-2023 Encounter for genera l adult medical examination without abnormal findings [facility] Start: 10-05-2023 End: 10-05-2023 ambulatory WOO LERNER Facility:[facility] Start: 09-24-2023 End: 09-25-2023 ambulatory WOO LERNER Facility:[facility] Start: 09-04-2023 Orders Only Woo palomo MD Work Phone: [facility] Start: 08-30-2023 End: 08-31-2023 ambulatory WOO [facility] Start: 08-30-2023 End: 08-30-2023 ambulatory [facility] Start: 08-07-2023 Refill Rody jennings [facility] Start: 08-02-2023 End: 08-02-2023 Office outpatient visit 25 minutes Woo Killian MD Work Phone: [facility] Comment on above: Transient ischemic a ttack (TIA) (Primary Dx); Symptomatic bradycardia; LBBB (left bundle branch block); Facial weakness Start: 08-02-2023 End: 08-02-2023 ambulatory WOO KILLIAN [facility] Start: 07-24-2023 End: 07-24-2023 ambulatory [facility] Start: 07-05-2023 End: 07-05-2023 ambulatory [facility]OO [facility] Start: 07-05-2023 End: 07-05-2023 Transitional care manage srvc 14 day discharge Woo Killian MD Work Phone: [facility] Comment on above: Symptomatic bradycar frances (Primary Dx); MVP (mitral valve prolapse); LBBB (left bundle branch block) Start: 07-04-2023 ambulatory PAN [facility] Start: 06-22-2023 Evaluation and manag ement of inpatient [facility] Start: 06-21-2023 Evaluation and manag ement of inpatient [facility] Start: 06-19-2023 Evaluation and manag ement of inpatient SAKINA [facility] Start: 06-19-2023 End: 06-22-2023 Evaluation and management of inpatient KYLEE KATAYAN [facility] Start: 01-12-2022 End: 01-13-[address] WOO KILLIAN Facility: Start: 09-29-2020 End: 09-03-2020 Patient encounter procedure Sabrina Caceres Work Phone: [facility] Work Phone: Start: 09-03-2020 End: 09-03-2020 Patient encounter procedure Ruthie Smiley Work Phone: [facility] Work Phone: Start: 09-27-2017 End: 09-27-2017 [facility] [place] Start: 09-24-2017 End: 09-29-2017 Ambulatory [facility] Start: 05-02-2017 End: 06-01-2017 Ambulatory MAXIME LEACH Facility:[facility] Start: 04-01-2017 End: 05-02-2017 Ambulatory MAXIME LEACH Facility:[facility] Start: 03-16-2017 End: 03-17-2017 Ambulatory MAXIME LEACH Facility:[facility] Start: 03-02-2017 End: 04-01-2017 Ambulatory MAXIME LEACH Facility:[facility] Start: 02-23-2017 End: 02-24-2017 Ambulatory MAXIME LEACH Facility:[facility] Start: 01-30-2017 End: 03-02-2017 Ambulatory MAXIME LEACH Facility:[facility] Start: 01-11-2017 End: 01-12-2017 Ambulatory MAXIME LEACH Facility:[facility] Procedures Date Procedure Procedure Detail Performing [...] Imm. administration COVID19 Moderna dose 1 Ruthie Sherice Work Phone: Start: 09-03-2020 SARS-CoV-2 vaccine, 0.5ml Moderna Ruthie Genynliam Work Phone: Start: 09-27-2017 INCENTIVE SPIROMETRY RT [...] Td Vaccines (3 - Td or Tdap) [facility] Start: 08-29-2024 Adult BMI Screening Adult BMI Screen ing [facility] Start: 08-29-2024 Tobacco Screening Tobacco Screening [facility] Start: 08-02-2024 Adult BMI Screening Adult BMI Screen ing [facility] Start: 08-02-2024 Depression Screening Depression Scre ening [facility] Start: 08-02-2024 Fall Risk Screening Fall Risk Screen ing [facility] Start: 08-02-2024 Tobacco Screening Tobacco Screening [facility] Start: 07-05-2024 Adult BMI Screening Adult BMI Screen ing [facility] Start: 07-05-2024 Depression Screening Depression Scre ening [facility] Start: 07-05-2024 Fall Risk Screening Fall Risk Screen ing [facility] Start: 07-05-2024 Tobacco Screening Tobacco Screening [facility] Start: 12-25-2023 End: 12-25-2023 Patient encounter procedure 12/25/2023 11:00 AM EDT Office Visit [facility] [address] [place] [address] Woo Killian MD [address] [place], [place] [id number] [facility] Start: 12-21-2023 Medicare Annual Wellness Visit Medicare Annual Wellness Visit [facility] Start: 08-30-2023 End: 08-30-2023 Patient encounter procedure [facility] Start: 08-30-2023 Subsequent hospital visit by physician 08/30/2023 1:15 PM EST Hospital Encounter [facility] [address] [place] [id number] [facility] Start: 08-02-2023 End: 08-02-2024 Holter monitor study Holter monitor 24-48 hour Cardiac Services Routine Symptomatic bradycardia LBBB (left bundle branch block) Expected: 08/02/2023, Expires: 08/02/2024 [facility] Comment on above: Expected: 08/02/2023 , Expires: 08/02/2024 Start: 08-02-2023 End: 08-02-2024 MR Brain WO contrast MR brain without contrast Imaging Routine Transient ischemic attack (TIA) Expected: 08/02/2023, Expires: 08/02/2024 [facility] Work Phone: Comment on above: Expected: 08/02/2023 , Expires: 08/02/2024 Start: 08-02-2023 End: 08-02-2024 US Carotid arteries - bilateral Vas carotid duplex bilateral Vascular Ultrasound Routine Transient ischemic attack (TIA) Facial weakness Expected: 08/02/2023, Expires: 08/02/2024 [facility] Comment on above: Expected: 08/02/2023 , Expires: 08/02/2024 Start: 08-02-2023 End: 08-02-2023 Patient encounter procedure 08/02/2023 9:30 AM EST Office Visit [facility] [address] [place] [address] Woo Killian MD [address] [place] [address] [facility] Start: 09-29-2020 2nd Dose- COVID Vaccine [facility] Work Phone: Start: 08-01-2018 Screening for malignant neoplasm of breast Mammogram [facility] Start: 1972 Adult BMI Follow Up Plan Adult BMI Follow Up Plan [facility] Immunizations Immunization Date Immunization Notes Care Provider Fa cility 06-18-2023 RSV, recombinant, protein subunit RSVpreF, adjuvant reconstituted, 0.5 mL, PF Woo Killian MD Work Phone: [facility] 05-16-2023 Influenza Vaccine, Quadrivalent, Adjuvanted Woo Killian MD Work Phone: [facility] 06-20-2022 Covid-19, Mrna, Lnp- s, Bivalent, Pf, 50mcg/0.5ml or 25mcg/0.25ml Woo Killian MD Work Phone: [facility] 03-05-2022 Influenza, High-dose , Quadrivalent Woo Killian MD Work Phone: [facility] 03-05-2022 pneumococcal polysaccharide vaccine, 23 valent Woo Killian MD Work Phone: [facility] 03-05-2022 pneumococcal vaccine , unspecified formulation Woo Killian MD Work Phone: [facility] 04-12-2021 Influenza Vaccine, Quadrivalent, Adjuvanted Woo Killian MD Work Phone: [facility] 04-12-2021 influenza virus vacc ine, unspecified formulation Woo Killian MD Work Phone: [facility] 09-29-2020 2nd Dose MODERNA COVID-19 Vaccine; Translations: [Moderna COVID-19 Vaccine] [facility] Work Phone: Comment on above: Note: Patient tolera meli well. No signs or symptoms of adverse reactions. Patient waited a minimum of 15 minutes. 09-03-2020 2nd Dose MODERNA COVID-19 Vaccine; Translations: [Moderna COVID-19 Vaccine] [facility] Comment on above: Note: Patient tolera meli well. No signs or symptoms of adverse reactions. Patient waited a minimum of 15 minutes. 03-29-2020 Influenza Vaccine, Quadrivalent, Adjuvanted Woo Killian MD Work Phone: [facility] 03-29-2020 zoster vaccine recombinant Woo Killian MD Work Phone: [facility] 07-20-2019 zoster vaccine recombinant Woo Killian MD Work Phone: [facility] 03-31-2019 influenza, injectabl e, quadrivalent, preservative free Woo Killian MD Work Phone: [facility] 03-31-2019 pneumococcal conjuga te vaccine, 13 valent Woo Killian MD Work Phone: [facility] 03-31-2019 tetanus toxoid, redu francisco diphtheria toxoid, and acellular pertussis vaccine, adsorbed Woo Killian MD Work Phone: [facility] 04-22-2018 influenza, injectabl e, quadrivalent, preservative free Woo Killian MD Work Phone: [facility] 06-11-2017 influenza, injectabl e, quadrivalent, preservative free Woo Killian MD Work Phone: [facility] 06-19-2015 influenza, seasonal, injectable, preservative free Woo Killian MD Work Phone: [facility] 09-12-2011 tetanus toxoid, redu francisco diphtheria toxoid, and acellular pertussis vaccine, adsorbed Woo Killian MD Work Phone: [facility] 04-14-2010 pneumococcal polysaccharide vaccine, 23 valent Woo Killian MD Work Phone: [facility] Payers Date Payer Category Payer Medicare [employer] [id number] 2019-Present [phone] [address] [place] [address] [id number] 2017 Unknown [id number] 1959 Unknown [id number] 1954 Unknown [id number] 1955 Unknown [id number] 6 1954 Unknown [id number] 6 1954 Unknown [id number] 6 1954 Unknown [id number] 6 1955 Unknown [id number] 6 1955 Unknown [id number] 6 1955 Unknown [id number] 6 Social History Date Type Detail Facility Tobacco smoking status Unknown i f ever smoked [facility] Work Phone: Start: 01-10-2023 Tobacco smoking stat [facility] Ex-smoker [facility] History of tobacco use Current smoker [facility] History of tobacco use Cigarette Smoker P [facility] Start: 01-10-2023 Tobacco use and exposure Smoke less tobacco non-user [facility] Start: 07-05-2023 End: 08-30-2023 Alcohol intake Current drinker of alcohol (finding) [facility] Start: 07-22-2020 End: 07-05-2023 Alcohol intake [facility] Start: 05-25-2020 End: 07-22-2020 Alcohol Use Disorder Identification Test - Consumption [AUDIT-C] [facility] Frequency of Alcohol Consumption 2-3 times a week [facility] Start: 01-10-2023 Tobacco Comment Casual smoker, less than a pack a week [facility] Start: 1955 Sex Assigned At Not on file P [facility] Medical Equipment Procedure Code Equipment Code Equipment Origin al Text Equipment Identifier Dates Cardiac pacemaker, device (physical object) ([id number]) Pacemaker-06/19/20 23 [id number] Start: 06-19-2023 Comment on above: Description: [place]IA LANTIGUA Clinical Notes 06-19-2023 to 01-14-2024 Telephone Encounter - Rody García LPN - 08/07/2023 7:37 AM ESTTelephone Encounter - Rody García LPN - 08/07/2023 7:37 AM Piyush Killian MD - 08/02/2023 9:30 AM EST Note Date & Type Note Facility 01-14-2024 Note [facility] Note Reason for cardiology visit patient here for 6 mo follow up symptomatic bradycardia s/p PPM, MVP, and chronic LBBB. Chief Complaint: Minor chest pain HPI: Luma Carter is a 68 y.o. female with history [...] * Mild bibasi (more content not included)... [facility] 10-05-2023 Note HNO ID: [id number] Author: CELI RODRIGUES MD, PhD Service: ? [...] via US mail. PCP Woo Lerner MD [address] [facility] [address] [phone] CEREBROVASCULAR HISTORY Luma Carter is a very pleasant 68 year old [...] detected 06/16/23: T[facility] her horses to [facility] Once she had loaded the horse, she had new onset dizziness (spinning), no nausea, and fell to the left twice, no LOC, no injury to head or other body part. Perry fine right after. Drove home with her horse trailer and felt fine. 06/18/23: Called her PCP and was told to go to the ED. Went to the ED and was then transferred to [facility] Diagnosed with Left BBB bundle and [...] once daily. Ca Carb-Mag Cmb 11-D3-Zn Sulf [phone] gx-zszp-bv-mg tab Take by mouth once daily. No [...] drift Sensation: int (more content not included)... [facility] 09-24-2023 Note HNO ID: [id number] Author: SUSHILA KEANE MD Service: ? Author Type: Physician Type: Progress Notes Filed: 09/27/2023 21:48 Note Text: [facility] [place] [facility] Department of Cardiovascular Medicine SECTION OF CARDIOVASCULAR IMAGING OUTPATIENT VISIT DATE September 24, 2023 OUTPATIENT VISIT TYPE NEW (>3yr since last seen) CHIEF COMPLAINT: Further evaluation of valve disease HISTORY OF PRESENT ILLNESS: Ms. Carter is a 68 year old female from [place], [place] who presents for follow-up. Since last [...] once daily. Ca Carb-Mag Cmb 11-D3-Zn Sulf [phone] qj-zxke-oa-mg tab Take by mouth once daily. naproxen [...] have personally reviewed the above. IMPRESSION: Ms. Carter is a 68 year old female from [place] who presents for follow-up. Since last [...] CONTACT INFORMATION: Sushila Keane MD, PhD, [facility] Neonatal Specialistmovie editor, [facility], Staff, Section of Cardiovascular Imaging, Co-Director Cardio-Oncology Center, Transfer Knitter of the Echocardiographic Lab, [facility] Dept. Of Cardiovascular Medicine, [address] / [address] [place], [place] [address] Appt: [phone] [facility] 08-07-2023 Miscellaneous Notes Fax received from [facility] requesting refill of Escitalopram documented [facility] this [facility] 08-07-2023 Telephone encounter Note Fax received from [employer] requesting refill of Escitalopram [facility] 08-02-2023 History of Present illness Narrative Images from the original note were not included. [address] [facility] [id number] SUBJECTIVE: Patient ID: Luma Carter is a 68 y.o. female. 68 yo [...] brain Holter monitor documented in this encounter [facility] 07-24-2023 Note Patient here for [facility] for bradycardia. She had PPM implant on 06/[address] Monsalve. She feels good s/p implant, with palpitations resolving. [facility] in the past. Still has apt with [facility] in August 2023. Denies chest pain, SOB, and lightheadedness. Review of Systems All other systems reviewed and are negative. [facility] 07-24-2023 Note [place] Electrophysiology Consult Note Reason for visit: bradycardia/2:1 av block s/p DC PPM 06/21/23 HPI: Luma Carter is a 68 y.o. year old female patient past medical history LBBB, MVP with mild MR, palpitations, bradycardia s/p DC PPM 06/21/23 d/t bradycardia/2:1 av block Interval: 07/24/23: She is here for hospital follow-up from [facility] where she was admitted for bradycardia/21 [...] pacing 60%, RV pacing 99% HPI dr. Monsalve 06/20/23 HPI: Luma Carter is a 67 y.o. year old with past medical history of LBBB, MVP with mild MR, palpitations on propanlol, who presents as a transfer from [facility] for symptomatic bradycardia. She has been [...] [] acetaminophen (T (more content not included)... [facility] 07-05-2023 History of Present illness Narrative Images from the original note were not included. [address] [facility] [address] SUBJECTIVE: Transition of Care Additional Questions/Concerns Requiring PCP Follow-Up: This documentation is being used for Transition of Care purposes: Yes Goal: Patient will demonstrate a safe transition from hospital to home. Diagnosis on Discharge: Symptomatic bradycardia History of mitral valve prolapse Perioral numbness Admission Diagnosis: Bradycardia [R00.1] Discharge Specialty: Cardiac Name of Discharging Facility: [facility] Date of Facility Discharge: 06/22/23 Date of Interactive Contact and Name of Film Librarian: Myron with Luma on 06/26/23 Medication Review [...] Vascular Center on 07/04/2023 Specialty: Cardiology- @ [facility] 07/24/23 @ 1:40 Specialty: Review of Pending Lab/Diagnostic Tests and Plan for Completion: 06/21/23: Implantation of pacemaker (Biotronik) Patient went to [facility] on 06/24/23 for CP/severe heart burn. [...] you have signs of a heart attack; want ad receiver CP, chest pressure, difficulty breathing, pain in arms, back or jaw, feeling faint or dizzy, and fast or irregular heartbeat. -CN contact information, Nela Phillips RN, can be reached at [phone] and will follow for a minimum of 30 days following hospitalization. Communication with Home Health Agencies and Other Services Utilized/Needed by the Patient: Patient ID: Luma Carter is a 68 y.o. female. 68 yo [...] cardiology Serial BP documented in this encounter [facility] 06-22-2023 Note Occupational Therapy Occupational Therapy Evaluation Patient Name: Luma [facility] : 1955 Today's Date: 06/22/2023 Time in:1105 Time out: [id number] Present Illness History: 67 y/o F presented to [facility] ED from [place] for management of cardiac needs. Patient found [...] Level of Function Prior Function Level of Holmes: Independent with ADLs and functional transfers, Independent [...] comments: Patient comp (more content not included)... [facility] 06-22-2023 Note Hospital Medicine Discharge [...] to have bradycardia. She was transferred to [facility] to be evaluated by cardiology. They reviewed her EKGs from [facility] and telemetry in our hospital which was showing episodes of 2-1 AV block, second-degree AV block Mobitz 2 and nonconducted PACs. Her propranolol was held and the patient continued to have lightheadedness/dizziness and bradycardia. 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 She had an echocardiogram which was [...] Time Provider Department Center 07/04/2023 7:30 AM [facility] CV CLINIC DEVICE CHECK HVC CARD [...] Medications These medications were sent to [facility] - [place], [place] - [facility] [address] [place] [address] [place] [address], [facility] [address] acetaminophen 500 mg tablet amoxicillin-pot clavulanate 875-125 [...] was 35 minutes. Signed Austyn Lyons MD [facility] Medicine 06/22/2023 11:38 AM [facility] 06-22-2023 Note [facility] CARDIOLOGY INPAT [...] diarrhea/vaginal yeast infection. Tele: mostly paced, occasional telida beats ALLERGIES No Known Allergies CURRENT MEDS [...] Medications These medications were sent to [facility] - [address] [place] [address] [place] [address], [facility] [address] acetaminophen 500 mg tablet amoxicillin-pot clavulanate 875-125 [...] Encounter Date: 06/19/23 (more content not included)... [facility] 06-21-2023 Note DUAL CHAMBER PACEMAK ER IMPLANT PROCEDURE NOTE DATE OF PROCEDURE: 06/21/23 PERFORMING PHYSICIAN: Dr. Pan Monsalve MUSIC STORE MANAGER: Dr Angella Silver CONSENT: Patient LOCATION: [...] propanlol, who presents as a transfer from [facility] for symptomatic bradycardia. She has been [...] using modified seldinger technique using a 5 [place] micro-puncture needle on two occasions and 0.35 [...] for the device above the muscle. 6 [place] Safesheaths were placed over the wire. An active fixation Biotronik pacing lead was then delivered through the 6Fsheath tothe right ventricle. After confirmation of lead position on orthogonal views (KIMBLE and DANISH) to confirm septal position, the screw was [...] lead position on orthogonal views (KIMBLE and DANISH), the screw was activated. Good sensing parameters, [...] any concerns. Pan Monsalve MD Cardiac Electrophysiology [facility] 06-21-2023 Note Patient: uLma Carter Procedure Information Date/Time: 06/21/23 1530 Procedure: Implant PPM - biventricular Location: [facility] PROPELLER ENGINEER 1 EP / [facility] (Cath) Providers: Pan Monsalve MD Clinical information reviewed: Tobacco Allergies Meds Med Hx Surg Hx Fam Hx Soc Hx Physical Exam Airway Mallampati: II TM distance: >3 FB Neck ROM: full Cardiovascular Dental Pulmonary Abdominal Anesthesia Plan ASA 3 Anesthetic plan and risks discussed with patient. Use of blood products discussed with patient who. Additional Equipment Requests [facility] 06-21-2023 Note Hospital Medicine Daily Progress Note - 06/21/2023 10:57 AM; Room: [address] [place] [address] Admission: 06/19/2023 10:34 AM; Length of stay: 2 days THE HOSPITALIST TEAM PREFERS TO USE Tutto CHAT FOR COMMUNICATION 7AM-7PM. IF I DO NOT RESPOND WITHIN 15 MINUTES, PLEASE PAGE ME/CALL THROUGH THE MATTE CUTTER. FROM 7PM-7AM, PLEASE PAGE [phone](COVR) Code Status: Full Code Barriers to Discharge: [...] 2.78 06/19/2023 Lab Results Component Value Date [id number] 06/19/2023 IRON 20 (L) 06/20/2023 TIBC 386 06/20/2023 Imaging ECG 12 lead Normal sinus rhythm Left bundle branch block Abnormal ECG No previous ECGs available Confirmed by Pan Monsalve ([id number]) on 06/19/2023 6:24:21 PM Complete Echo (TTE) w/wo Imaging Agent, Strain, 3D, Bubble Study 1 1 [facility] Heart Station [address] [place] [address] [phone] (fax) Echocardiogram-[facility] Name: LUMA CARTER Study Date: 06/19/2023 01:16 PM B/P: 115 mmHg/75 mmHg HR: Date of : 1955 Location: [facility] Height: 65 in. Age: 67 year(s) [...] LVSVI, 2D 17 (more content not included)... [facility] 06-21-2023 Note Cardiology Progress Note Subjective Subjective: Luma Carter is a 67 y.o. female with past medical history of known LBBB, MVP with mild MR, palpitations on propanlol, who presents as a transfer from [facility] for symptomatic bradycardia. Patient states she [...] Value Ventricular Rate 85 Atrial Rate 85 ID Interval 156 QRS DURATION 132 QT Interval 480 QTC CALCULATION(BAZETT) 571 P Quecreek 68 R-Quecreek 1 T Wave [place]reek 34 Impression Normal sinus rhythm Left bundle branch block Abnormal ECG No previous ECGs available Confirmed by Pan Monsalve ([id number]) on 06/19/2023 6:24:21 PM No results found for: CKTOTAL , CKMB , CKMBINDEX , TROPONINI Complete Echo (TTE) w/wo Imaging Agent, Strain, 3D, Bubble Study Result Date: 06/19/2023 1 1 [facility] [address] [facility] [place] [address] [phone] (fax) Echocardiogram-[facility] Name: LUMA CARTER Study Date: 06/19/2023 01:16 PM B/P: 115 mmHg/75 mmHg HR: Date of : 1955 Location: [facility] Height: 65 in. Age: 67 year(s) [...] Valve Label Value (more content not included)... [facility] 06-20-2023 Note Hospital Medicine Daily Progress Note - 06/20/2023 12:45 PM; Room: [address] [place] [address] Admission: 06/19/2023 10:34 AM; Length of stay: 1 days THE HOSPITALIST TEAM PREFERS TO USE Tutto CHAT FOR COMMUNICATION 7AM-7PM. IF I DO NOT RESPOND WITHIN 15 MINUTES, PLEASE PAGE ME/CALL THROUGH THE MATTE CUTTER. FROM 7PM-7AM, PLEASE PAGE [phone](COVR) Code Status: Full Code Barriers to Discharge: [...] 2.78 06/19/2023 Lab Results Component Value Date [id number] 06/19/2023 Imaging ECG 12 lead Normal sinus rhythm Left bundle branch block Abnormal ECG No previous ECGs available Confirmed by Pan Monsalve ([id number]) on 06/19/2023 6:24:21 PM Complete Echo (TTE) w/wo Imaging Agent, Strain, 3D, Bubble Study 1 1 [facility] [address] [place] [address] [phone] (fax) Echocardiogram-[facility] Name: LUMA CARTER Study Date: 06/19/2023 01:16 PM B/P: 115 mmHg/75 mmHg HR: Date of : 1955 Location: [facility] Height: 65 in. Age: 67 year(s) [...] Label Value N (more content not included)... [facility] 06-20-2023 Note Attestation signed by Trudi Whipple MD at 06/20/2023 2:03 PM Case discussed with COMMUNICATION ANALYST. Do not bill level of service. Primary to call back if they need a full consult. Trudi Whipple MD On 06/20/2023- Neurology Team and Stroke Team were asked by Primary service about Pt c/o Alis oral numbness for 1-2 week. Family and Pt concerned it was a neurological issues. Neurology COMMUNICATION ANALYST discussed issue with Neurology Attending and Stroke [...] intracranial abnormalities. Maral Mosqueda DNP Neurology Inpatient COMMUNICATION ANALYST [facility] 06-20-2023 Note Attestation signed by [...] performed tomorrow 06/21/2023 Vijay Sandoval MD, MPH, LOCATED WITHIN [facility], [facility], [facility] Interventional Cardiology Pager Email: [email or web address] Cardiology Progress Note Subjective Subjective: Luma Carter is a 67 y.o. female with past medical history of known LBBB, MVP with mild MR, palpitations on propanlol, who presents as a transfer from [facility] for symptomatic bradycardia. Patient states she [...] (!) 48 23 95 % -- -- 06/19/23 2000 (!) 137/49 36.7 ???C (98.1 ???F) Temporal [...] Value Ventricular Rate 85 Atrial Rate 85 ID Interval 156 QRS DURATION 132 QT Interval 480 QTC CALCULATION(BAZETT) 571 P Quecreek 68 R-Quecreek 1 T Wave [place] 34 Impression Normal sinus rhythm Left bundle branch block Abnormal ECG No previous ECGs available Confirmed by Pan Monsalve ([id number]) on 06/19/2023 6:24:21 PM No results found for: CKTOTAL , CKMB , CKMBINDEX , TROPONINI Complete Echo (TTE) w/wo Imaging Agent, Strain, 3D, Bubble Study Result Date: 06/19/2023 1 1 [facility] [address] [place] [address] [phone] (fax) Echocardiogram-[facility] Name: LUMA CARTER Study Date: 06/19/2023 01:16 PM B/P: 115 mmHg/75 mmHg HR: Date of : 1955 Location: [facility] Height: 65 in. Age: 67 year(s) [...] septum is abnorm (more content not included)... [facility] 06-19-2023 Note Hospital Medicine History and Physical 06/19/2023 12:31 PM THE HOSPITALIST TEAM PREFERS TO USE Tutto CHAT FOR COMMUNICATION 7AM-7PM. IF I DO NOT RESPOND WITHIN 15 MINUTES, PLEASE PAGE ME/CALL THROUGH THE MATTE CUTTER. FROM 7PM-7AM, PLEASE PAGE [phone](COVR) Chief Complaint No chief complaint on file. [...] this hospital stay by a member of [facility] Hospital Medicine. Past Medical History History reviewed. No pertinent past medical history. Past Surgical History Past Surgical History (more content not included)... [facility] Evaluation note Diagnosis Symptomatic bradycardia- Primary MVP (mitral valve prolapse) Mitral valve disorders LBBB (left bundle branch block) Other left bundle branch block [facility] encounter [facility] Diagnosis Transient ischemic attack (TIA)- Primary Unspecified transient cerebral ischemia Symptomatic bradycardia LBBB (left bundle branch block) Other left bundle branch block Facial weakness documented [facility] filedocumented in [facility]* Attachments The following attachments cannot be sent through Care Everywhere. * Heart block in adults (Lao) [facility] SystemInstructionsNot on file documented in this encounterPro[facility] SystemInstructionsNot on file documented in [facility] Summary Purpose Family History No Family [...] Vas carotid duplex bilateral Woo Killian MD [address] [place] [address] Referral ID Status Reason Start Date Expiration Date V isits Requested Visits Authorized [id number] Pending Review 08/02/2023 08/01/2024 1 1 Specialty Diagnoses / Procedures Referred By Farhana t Referred To Contact Diagnoses Symptomatic bradycardia LBBB (left bundle branch block) Procedures Holter monitor 24-48 hour Woo Killian MD [address] [place] [address] Referral ID Status Reason Start Date Expiration Date V isits Requested Visits Authorized [id number] Pending Review 08/02/2023 08/01/2024 1 1 Specialty Diagnoses / Procedures Referred By Farhana muñoz Referred To Contact Radiology Diagnoses Transient ischemic attack (TIA) Procedures MR brain without contrast Woo Killian MD [address] [place] [address] Referral ID Status Reason Start Date Expiration Date V isits Requested Visits Authorized [id number] Pending Review 08/02/2023 08/01/2024 1 1 Assessments Findings Encounter Date Encounter for Immunization 1st COVID Vaccine wit jac Smilye PharmD 09/03/2020 Findings Encounter Date Encounter for Immunization 2nd Dose- COV ID Vaccine with Sabrina Caceres PharmD 09/29/2020 Encounter for Immunization 1st COVID Vaccine wit jac Oliveirag PharmD 09/03/2020 Instructions Instructions not supported for [...] section and content) DATE CREATED AUTHOR 12/20/2017 [facility] DATE CREATED AUTHOR AUTHOR'S ORGANIZ ATION 12/24/2017 [facility] DATE CREATED AUTHOR AUTHOR'S ORGANIZ ATION 12/28/2017 [facility] DATE CREATED AUTHOR AUTHOR'S ORGANIZ ATION 01/18/2022 [facility] DATE CREATED AUTHOR AUTHOR'S ORGANIZ ATION 09/02/2023 [facility] DATE CREATED AUTHOR AUTHOR'S ORGANIZ ATION 10/14/2023 [facility] DATE CREATED AUTHOR AUTHOR'S ORGANIZ ATION 01/01/20[facility] DATE CREATED AUTHOR AUTHOR'S ORGANIZ ATION 02/22/2024 [facility] Medical History (unrecognize d section and content) [...] Care Teams (unrecognized sec tion and content) Corporate Learning Consultant Relationship Specialty Start Date End Date Woo Killian MD [address] [place] [address] PCP - [facility] 12/25/16 Corporate Learning Consultant Relationship Specialty Start Date End Date Woo Killian MD [address] [place] [address] PCP - [facility] 12/25/16 Corporate Learning Consultant Relationship Specialty Start Date End Date Woo Killian MD [address] [place], [place] [id number] PCP - [facility] 12/25/16 Corporate Learning Consultant Relationship Specialty Start Date End Date Woo Killian MD [address] [place], [place] [id number] PCP - [facility] 12/25/16 FOR RECORDS PERTAINING TO PATIENTS WHO [...] BE BASED ON THE PRIMARY CLINICAL RECORDS. [employer] provides no warranty or guarantee of the accuracy or completeness of information in this document.
[2024-06-03 11:24] LABS: Alanine Aminotransferase 58 U/L (14-59); Aspartate Amino Transferase 42 U/L (15-37); Chol HDL Ratio 3.8; Cholesterol 212 mg/dL (<=200); HDL Cholesterol 56 mg/dL (40-60); Triglycerides 76 mg/dL (<=150); VLDL CHOLESTEROL 15.2 mg/dL
== END 2024-06-03 09:47 | disposition home or self-care (01) ==
LOC: LAB 09:47
PROVIDERS: PCP Family Medicine; Visit Provider Internal Medicine Cardiovascular Disease
DX: E78.2 Mixed hyperlipidemia (principal)
CPT/HCPCS: 36415; 80061; 84450; 84460

== ENCOUNTER 2024-07-08 06:46 | Outpatient (OUT) | payer MEDICARE, SELFPAY ==
[2024-07-08 08:05] LABS: Alanine Aminotransferase 30 U/L (14-59); Aspartate Amino Transferase 26 U/L (15-37); Chol HDL Ratio 3.3; Cholesterol 131 mg/dL (<=200); HDL Cholesterol 40 mg/dL (40-60); LDL Cholesterol Calculated 73.8 mg/dL; Triglycerides 86 mg/dL (<=150); VLDL CHOLESTEROL 17.2 mg/dL
== END 2024-07-08 06:47 | disposition home or self-care (01) ==
LOC: LAB 06:46
PROVIDERS: PCP Family Medicine; Visit Provider Internal Medicine Cardiovascular Disease
DX: E78.5 Hyperlipidemia, unspecified (principal)
CPT/HCPCS: 36415; 80061; 84450; 84460

== ENCOUNTER 2024-08-25 09:35 | Outpatient (OUT) | payer MEDICARE, SELFPAY ==
--- NOTE | 2024-08-25 09:40 | CA_ITS ---
Patient Name: GRISELDA DAVEY MR#: [id number] : 1955 Exam Date: 08/25/2024 Ordering Doctor: DR. LEX WEBBER M.D. ECHOCARDIOGRAM REPORT PROCEDURE: CA ECHO DOPPLER COMPLETE INDICATIONS: Dyspnea on exertion COMPARISON: None. DESCRIPTION: COMPLETE ECHOCARDIOGRAM Real-time transthoracic echocardiography with 2D, M-mode, spectral and color flow Doppler performed. QUALITY: Technical quality was good. LEFT VENTRICLE: Normal chamber size. Mild concentric left ventricular hypertrophy. LV EF: Global left ventricular systolic function is mildly decreased. Visual estimation of left ventricular ejection fraction is 40-45%. Global hypokinesis. Abnormal septal motion; may be related to underlying bundle branch block. DIASTOLIC: Grade I diastolic dysfunction. E/E' consistent with volume overload. ATRIAL SEPTUM: Inadequately seen. LEFT ATRIUM: Normal chamber size. RIGHT ATRIUM: Mild dilatation. RIGHT VENTRICLE: Normal chamber size. Normal right ventricular systolic function. Pacer wire present. TRICUSPID VALVE: Normal mobility and thickness. Mild regurgitation. No evidence of pulmonary hypertension's 27mmHg MITRAL VALVE: Normal mobility and thickness. No evidence of mitral valve stenosis. There is no mitral annular calcification. Mild mitral regurgitation. AORTIC VALVE: Normal trileaflet appearance. No visible sclerosis. Normal leaflet mobility. No evidence of aortic valve stenosis. Mild aortic regurgitation. AORTIC ROOT: Normal diameter and appearance. PULMONIC VALVE: Normal thickness and mobility. No stenosis. Trivial regurgitation. PERICARDIUM: Anterior free space; trivial effusion versus fat pad. IVC: Collapses with inspirations. Normal size. CONCLUSION: 1. Global left ventricular systolic function is mildly decreased; visually estimated ejection fraction is 40 to 45% 2. Normal right ventricular size and systolic function 3. Mild left ventricular hypertrophy 4. Grade 1 diastolic dysfunction 5. E/E' consistent with volume overload 6. The right atrium is mildly dilated 7. Mild tricuspid, mitral and aortic regurgitation 8. Anterior free space; trivial effusion versus fat pad Adult Echocardiography Procedure Report Left Ventricle LVEDD (3.7 - 5.6 cm): 4.63 cm LVESD (2.2 - 4.0 cm): 3.62 cm LVIVS thickness (0.6 - 1.2 cm): 1.11 cm LVPW thickness (0.5 - 1.0 cm): 1.09 cm e': 0.04 m/s E - e': 17.25 LVOT Max Gradient: 1.85 mm[Hg] LVOT Area (cm2): 0.68 m/s Peak Velocity (LVOT): 0.68 m/s Mean Velocity (LVOT): 0.53 m/s LVOT Diameter 1.94 cm Left Ventricular Ejection Fraction: 48.93 % Left Atrium LA Volume Index (2D A2C): 27.83 ml/m2 Left Atrium Systolic Dimension: 3.26 cm Mitral Valve MV E to A Ratio: 0.77 Mitral Valve A-Wave Peak Velocity: 0.89 m/s Mitral Valve E-Wave Peak Velocity: 0.69 m/s Right Ventricle RV Internal Diastolic Dimension: 2.53 cm Aorta AO Root Diam: 2.79 cm Ascending Ao Diam: 2.51 cm Aortic Valve AoV Area (Peak Edin): 1.65 cm2, 1.65 cm2 AoV Area (VTI): 1.57 cm2, 1.57 cm2 Deceleration [place]: 1.16 m/s2 Pressure Half-Time: 902.64 ms Peak Velocity(Antegrade Flow): 1.23 m/s Peak Gradient(Antegrade Flow): 6.00 mm[Hg] Mean Velocity(Antegrade Flow): 0.90 m/s Mean Gradient(Antegrade Flow): 3.62 mm[Hg] Velocity Time Integral: 27.47 cm Tricuspid Valve Peak Velocity (Regurgitant Flow): 2.44 m/s, 2.38 m/s, 2.29 m/s Pulmonic Valve Mean Gradient: 2.74 mm[Hg] Mean Velocity: 0.80 m/s Peak Velocity: 1.09 m/s, 0.80 m/s Peak Gradient: 2.58 mm[Hg], 4.75 mm[Hg] Right Atrium Right Atrium Systolic Pressure: 22.64 ml, 22.64 ml Dictated by: Vijay Sandoval M.D. on 08/25/2024 at 15:55 Approved by: Vijay Sandoval M.D. on 08/25/2024 at 16:01
--- OUTSIDE RECORDS SUMMARY | 2024-08-25 09:58 | XMS_ITS | CCD ---
Author Organization [facility] Care Team Providers Care Crystal Grinder Name Role Phone DBOUK, TAREK A Unavailable [...] Care Unavailable DEFRANCE, DR BERKOWITZ Admitting Unavailable DEFRANCEWOO Referring Unavailable DEFRANCE, WOO Sellers Primary Care Unavailable DEFRANCE, WOO Sellers Referring Unavailable DEFRANCE, WOO Sellers Primary Care Unavailable DEFRANCE, WOO Sellers Referring Unavailable DEFRANCE, WOO Sellers Primary Care Unavailable DEFRANCE, WOO Sellers Attending Unavailable DEFRANCE, WOO Sellers Referring Unavailable DEFRANCE, WOO Sellers Primary Care Unavailable DEFRANCE, WOO Sellers Attending Unavailable DEFRANCE, WOO Sellers Referring Unavailable DEFRANCE, WOO Sellers Primary Care Unavailable DEFRANCE, WOO Sellers Attending Unavailable DEFWOO COBOS Referring Unavailable DEFRANCE, WOO Sellers Primary Care Unavailable FABRIZIO HARTMANN Attending Unavailable WOO KILLIAN Referring Unavailable DEFWOO COBOS Primary Care Unavailable de Christina, Woo Ybarra Primary Care Provider 1( [phone] de Christina, Woo Ybarra Primary Care Provider DE CHRISTINA, WOO YBARRA Primary Care Unavaila ble DE CHRISTINA, WOO YBARRA Referring Unavaila ble CELI RODRIGUES Attending Unavailable DE CHRISTINA, WOO YBARRA Primary Care Unavaila ble KEANEYONG Attending Unavailable YONG KEANE Referring Unavailable DE CHRISTINA, WOO YBARRA Primary Care Unavaila ble YONG KEANE Referring Unavailable SOM PATTON Attending Unavailable LEX TREADWELL Attending Unavailable ORLANDO MONSALVE Referring Unavailable LEX TREADWELL Attending Unavailable Allergies Allergy Classification Reported Allergen(s) Allergy Type Date of Onset Reaction(s) Facility (1 source) 25038,00 Drug allergy (disorder) 10-23-2016 [facility] Repository Medications Current Medications Medication Drug Class(es) Dates Sig (Normalized) Sig (Original) Ascorbic Acid (3 sources) Vitamin C ascorbic acid (V ITAMIN C ORAL) Take by mouth once daily. Active ascorbic acid (V ITAMIN C ORAL) Take by mouth once daily. 0 Active Comment on above: Take by mouth once d aily. Ca Carb-Mag Cmb 11-D3-Zn Sulf [phone] cd-qwde-oh-mg tab (3 sources) Ca Carb-Mag Cmb 11-D3-Zn Sulf [phone] su-pbsd-qd-mg tab Take by mouth once daily. Active Ca Carb-Mag Cmb 11-D3-Zn Sulf [phone] ot-mhtn-yj-mg tab Take by mouth once daily. 0 Active Comment on above: Take by mouth once d aily. ferrous sulfate 325 mg oral tablet (3 sources) ferrous sulfate 325 mg (65 mg iron) tablet Take 325 mg by mouth as needed. Active Comment on above: Take 325 mg by mouth as needed. Glucosamine (3 sources) glucosamine HCl (GLUCOSAMINE, BULK, MISC) Take by mouth once daily. Active glucosamine HCl (GLUCOSAMINE, BULK, MISC) Take by mouth once daily. 0 Active Comment on above: Take by mouth once d aily. 24 hr mirabegron 50 mg extended release oral tablet (3 sources) beta3-Adrenergic Agonist Start: 08-16-2018 take 50 mg by mouth once daily MYRBETRIQ 50 mg Tb24 Take 50 mg by mouth once daily. 08/16/2018 Active Comment on above: Take 50 mg by mouth once daily. Vitamin B Complex (3 sources) vitamin B comple x (B COMPLEX 1 ORAL) Take by mouth once daily. Active vitamin B comple x (B COMPLEX 1 ORAL) Take by mouth once daily. 0 Active Comment on above: Take by mouth once d aily. Completed/Discontinued Medications Medication Drug Class(es) Dates Sig (Normalized) Sig (Original) aspirin 81 mg delayed release oral tablet (2 sources) Platelet Aggregation Inhibitor, Nonsteroidal Anti-inflammatory Drug Start: 07-04-2023 aspirin, enteric coated (ASPIRIN, ENTERIC COATED) 81 mg EC tablet Take by mouth every 24 hours. 0 07/04/2023 Active Comment on above: Take by mouth every 24 hours. clopidogrel 75 mg oral tablet (2 sources) P2Y12 Platelet Inhibitor Start: 09-01-2023 take 1 tablet by mouth once daily in the morning clopidogrel (PLAVIX) 75 mg tablet Take 75 mg by mouth every morning. 0 09/01/2023 Active Comment on above: Take 75 mg by mouth every morning. escitalopram 10 mg oral tablet (2 sources) Serotonin Reuptake Inhibitor Start: 09-24-2023 take 2 tablets by mouth once daily in the morning escitalopram oxalate (LEXAPRO) 10 mg tablet Take 20 mg by mouth every morning. 0 09/24/2023 Active Comment on above: Take 20 mg by mouth every morning. Problems Active Problems Problem Classification Problem Date Documented Da te Episodic/Chronic Cardiac dysrhythmias (4 sources) Bradycardia, unspecified; Translations: [Tachycardia, unspecified] Onset: 07-05-2023 Episodic Conduction disorders (12 sources) Left bundle-branch block, unspecified; Translations: [Presence of cardiac pacemaker] Onset: 06-14-2018 Chronic Deficiency and other anemia (1 source) Other iron deficiency anemias; Translations: [Other iron deficiency anemias] Onset: 12-25-2023 Episodic Disorders of lipid metabolism (8 sources) Mixed hyperlipidemia; Translations: [Mixed hyperlipidemia] Onset: 01-12-2022 Chronic Gastrointestinal hemorrhage (1 source) Hemorrhage of anus and rectum; Translations: [Hemorrhage of anus and rectum] Onset: 12-31-2023 Episodic Heart valve disorders (3 sources) Nonrheumatic mitral (valve) prolapse; Translations: [Nonrheumatic mitral (valve) insufficiency] Onset: 07-16-2017 Chronic Immunizations and screening for infectious disease (3 sources) Encounter for immunization; Translations: [Encounter For Immunization] Onset: 09-03-2020 Episodic Osteoarthritis (2 sources) Bilateral primary osteoarthritis of hip; Translations: [Polyosteoarthritis, unspecified] Onset: 03-16-2017 Chronic Osteoporosis (1 source) Age-related osteoporosis without current pathological fracture; Translations: [Age-related osteoporosis without current pathological fracture] Onset: 12-25-2023 Chronic Other lower respiratory disease (2 sources) Other forms of dyspnea; Translations: [Other forms of dyspnea] Onset: 07-07-2024 Episodic Other screening for suspected conditions (not mental disorders or infectious disease) (2 sources) Encounter for screening mammogram for malignant neoplasm of breast; Translations: [Encounter for screening for malignant neoplasm of colon] Onset: 12-25-2023 Episodic Residual codes; unclassified (1 source) Family history of malignant neoplasm of digestive organs; Translations: [Family history of malignant neoplasm of digestive organs] Onset: 12-31-2023 Episodic Transient cerebral ischemia (2 sources) Transient cerebral ischemic attack, unspecified; Translations: [Transient cerebral ischemic attack, unspecified] Onset: 08-02-2023 Chronic Unclassified (2 sources) MIXED INCONTINENCE [...] Translations: [Facial weakness] Onset: 08-02-2023 Episodic Other connective tissue disease (1 source) Transient neurological symptoms; Translations: [Other symptoms and signs involving the nervous system] 10-05-2023 Episodic Other fractures (7 sources) Multiple fractures of pelvis without disruption of pelvic ring, subsequent encounter for fracture with routine healing; Translations: [Fracture of unspecified parts of lumbosacral spine and pelvis, subsequent encounter for fracture with routine healing] Onset: 01-11-2017 Episodic Other nervous system disorders (1 source) Perioral numbness; Translations: [Anesthesia of skin] 10-05-2023 Episodic Unclassified (2 sources) MIXED INCONTINENCE URGE AND STRESS; Translations: [mixed incontinence urge and stress] Onset: 09-24-2017 Results Test Name Value Interpretation Reference Range Facility Office Visiton 07-07-2024 Follow-up visit [id number] [place],Luma Samayoa 1955 F Date Provider Department Center 07/07/2024 [id number] TREADWELL [facility] Family History Problem Relation Age of Onset Other Mother Stroke Mother Stroke Father Valvular heart disease Father Atrial fibrillation Father Family Status - Relation Status Age at Mother Father Level of Service:52025 [place] OFFICE/OUTPATIENT ESTABLISHED MOD MDM 30 MIN Reason for Visit and Comments: Palpitations [648819] - Denies palpitations. Bradycardia [049418] - Scheduled for routine device interrogation next month. Abnormal ECG [293] Hyperlipidemia [182] - She was started on atorvastatin last month and is tolerating it well so far. Shortness of Breath [253251] - More lately since she's fighting a cold right now. Normal [facility] 36on 06-10-2024 36 Just spoke with patient and told her her symptoms were not related to her cardiac device. She said when she called and spoke to someone she made no mention of her device. She said she was concerned his symptoms were due to her recent blood work. She had labs last week. I told her the results of those labs would not cause the symptoms she was experiencing, which she says has resolved. She said she was having constant palpitations for awhile but those have improved as well. I scheduled her to see Dr. Treadwell in Jul 2024 for 6 mo follow up to put her more at ease. Offered her apt in Jun but she said she was fine with waiting til Jul 2024. I also provided her with the number to the [place] office so she can contact us in the future. Thanks. Normal [facility] 36on 06-04-2024 36 Patient is calling t o report symptoms she has been having x2 weeks. She complains of chest fullness with difficulty breathing at times and sour stomach with increased bowel movements after meals. She is unsure if this is related to her cardiac device. She has not yet addressed concerns with PCP. Last seen at [facility] 07/2023. She would like a call to discuss [phone]. Thank you This phone message was created by the Ambulatory float staff. If you need child support investigator follow up regarding this patient, please make your appropriate clinic staff member aware. Thank you. [facility] Telephoneon 06-04-2024 Telephone [id number] Lisy Carterviet Samayoa 1955 F Date Provider Department Center 06/04/2024 ORLANDO YOUSSEF [facility] Family History Problem Relation Age of Onset Other Mother Stroke Mother Stroke Father Valvular heart disease Father Atrial fibrillation Father Family Status - Relation Status Age at Mother Father [facility] 36on 02-20-2024 36 Regarding labs from 01/12/2024: [...] sent her lab orders in the mail. [facility] Office Visiton 01-14-2024 Follow-up visit [id number] Luma Carter 1955 Date Provider Department Center 01/14/2024 [id number] [facility]LL [facility] Problem Relation Age of Onset Other Mother Stroke Mother Stroke Father Valvular heart disease Father Atrial fibrillation Father Family Status - Relation Status Age at Mother Father Level of Service:64288 [place] OFFICE/OUTPATIENT ESTABLISHED LOW MDM [address] [facility] CNOVon 10-05-2023 CNOV Office Visit (NECVS8 ) LUMA CARTER ([id number]) 1955 F Date Time Provider Department 10/05/23 [...] via US mail. PCP Woo Lerner MD [id number] [facility] [address] [phone] CEREBROVASCULAR HISTORY Luma Carter is a very [...] detected 06/16/23: Took her horses to the [facility]. Once she had loaded the horse, she had new onset dizziness (spinning), no nausea, and fell to the left twice, no LOC, no injury to head or other body part. [place] fine right after. Drove home with her horse trailer and felt fine. 06/18/23: Called her PCP and was told to go to the ED. Went to the ED and was then transferred to [facility] Diagnosed with Left BBB bundle and AV block S/p pacemaker 06/21/23 No symptoms for 2-3 weeks afterwards Recurrence of lip tingling for a while but none recently. 08/02/23: Saw PCP, Dr. DeFrance for lip numbness x2 days Started on [...] of her siblings have a h/o stroke. Antiplatelets/Anticoag ulants: Aspirin and Clopidogrel Residual Deficits: No residual deficits Interval: Has been doing well. No new symptoms. Antiplatelets/anticoag ulation: ASA 81 mg daily, Plavix 75 mg [...] once daily. Ca Carb-Mag Cmb 11-D3-Zn Sulf [phone] pk-zejp-cd-mg tab Take by mouth once daily. No [...] and Follows commands. Cranial Nerves: CNII: Visual coronado full to confrontation, No APD noted on exam CNIII, IV, : Pupils equal, round and reactive to light, full extraoccular movements, without nystagmus CN V: Facial sensation intact bilaterally to fine touch CN VII: Facial muscles symmetric and strong, No noted (more content not included)... Normal [facility]03[facility] LUMA CARTER ([id number]) 1955 F Date Time Provider Department 10/03/23 CELI RODRIGUES NECVS8 During your visit today, we recorded the following information about you: Arelis Reed 07/04/2024 9:11 PM Addendum OS imaging/records received from [facility]: October 03, 2023 -Medical Hx AND Imaging Reports available in Care Everywhere. Allergies As of Date: 10/03/2023 (No Known Allergies) Date Reviewed: 09/24/2023 Reviewed by: Javier Leach MA - Fully Assessed Reason for Visit: Imaging/Records [Other] Prescriptions as of 07/04/2024 - clopidogrel (PLAVIX) 75 mg tablet Take 75 mg by mouth every morning. - aspirin, enteric coated (ASPIRIN, ENTERIC COATED) 81 mg EC tablet Take by mouth every 24 hours. - escitalopram oxalate (LEXAPRO) 10 mg tablet Take 20 mg by mouth every morning. - ascorbic acid (VITAMIN C ORAL) Take by mouth once daily. - vitamin B complex (B COMPLEX 1 ORAL) Take by mouth once daily. - ferrous sulfate 325 mg (65 mg iron) tablet Take 325 mg by mouth as needed. - glucosamine HCl (GLUCOSAMINE, BULK, MISC) Take by mouth once daily. - MYRBETRIQ 50 mg Tb24 Take 50 mg by mouth once daily. - Ca Carb-Mag Cmb 11-D3-Zn Sulf [phone] nf-ebsf-hy-mg tab Take by mouth once daily. Problem List As Of Date: 10/03/2023 (None) Encounter Status:Closed by ARELIS REED on 07/04/24 [facility] CNOVon 09-24-2023 CNOV Office Visit (KIMBER ) LUMA CARTER ([id number]) 1955 F Date Time Provider Department 09/24/23 12:30 PM YONG KEANE During your visit today, we recorded the following information about you: Pulse Blood pressure Weight Height 89/minute 144/77 73.9 kg 1.66 m Yong Keane MD 09/27/2023 9:48 PM Signed [facility] [place] [facility] Department of Cardiovascular Medicine SECTION OF CARDIOVASCULAR IMAGING OUTPATIENT VISIT DATE September 24, 2023 OUTPATIENT VISIT TYPE NEW (>3yr since last seen) CHIEF COMPLAINT: Further evaluation of valve disease HISTORY OF PRESENT ILLNESS: Ms. Carter is a 68 year old female from [place], [place] who presents for follow-up. Since last [...] once daily. Ca Carb-Mag Cmb 11-D3-Zn Sulf [phone] da-bovg-mq-mg tab Take by mouth once daily. naproxen [...] is a 68 year old female from [place], [place] who presents for follow-up. Since last [...] prn if symptoms don't settle/improve. CONTACT INFORMATION: Yong Keane MD, PhD, [facility] [employer] moss picker, [facility], Staff, Section of Cardiovascular Imaging, Co-Director Cardio-Oncology Center, Pump Station Operator of the Echocardiographic Lab, [facility] Dept. Of Cardiovascular Medicine, [address] / [address] [place], [place] [address] Appt: [phone] Referring Provider: YONG KEANE [[id number]] Allergies As of Date: 09/24/2023 (No Known Allergies) Date Reviewed: 09/24/2023 Reviewed by: Javier Leach MA - Fully Assessed Primary Visit Diagnosis:LBBB (left bundle branch block) [I44.7] Other Visit Diagnoses:Pacemaker [Z95.0] Nonrheumatic mitral valve regurgitation [I34.0] Order(s):CARDIOVASCULA R MEDICINE OP FOLLOW UP APPT ORDER [[id number]] Order #: [id number]: 1 FUTURE Prescriptions as of 09/27/2023 - [...] once daily (more content not included)... Normal [facility] ECG COMPLETEon 09-24-2023 ECG COMPLETE Ventricular Rate : 8 0 BPM Atrial Rate : 80 BPM P-R Interval : 192 ms QRS Duration : 136 ms Q-T Interval : 446 ms QTC Calculation(Bazett) : 514 ms Calculated P [place] : 58 degrees Calculated R [place] : -18 degrees Calculated T [place] : 27 degrees ATRIAL-PACED RHYTHM COMPLETE LEFT BUNDLE BRANCH BLOCK ABNORMAL ECG Confirmed by BABATUNDE WEAVER MD ([id number]) on 10/14/2023 6:43:06 PM NAME : LUMA CARTER PID : [id number] : 1955 Gender : Female Race : ORD : [id number] Procedure Date : Sep 24 2023 12:35:33 Edit Date : Oct 14 2023 18:43:10 Diagnosis: ATRIAL-PACED RHYTHM COMPLETE LEFT BUNDLE BRANCH BLOCK ABNORMAL ECG Confirmed by BABATUNDE WEAVER MD ([id number]) on 10/14/2023 6:43:06 PM Test Reason : Location : 314 : J14 J1-4 Overread By : BABATUNDE WEAVER MD Edited By : BABATUNDE WEAVER MD Referred By : YONG KEANE Acquired by : MONA KRUSE [facility] MR BRAIN WO CONTon MR BRAIN WO [...] Juan Arredondo MD on 08/30/2023 2:50 PM Dylan Easton MD have personally reviewed the image(s) and agree with and/or edited the report Finalized by Dylan George MD on 08/31/2023 7:12 AM Normal [facility] Office Visiton 07-24-2023 Follow-up visit [id number] Luma Carter Yao 1955 F Date Provider Department Center 07/24/2023 Ingrid-SOM PATTON CARD [facility] Family History Problem Relation Age of Onset Other Mother Stroke Mother Stroke Father Valvular heart disease Father Atrial fibrillation Father Family Status - Relation Status Age at Mother Father Level of Service:27277 [place] OFFICE/OUTPATIENT ESTABLISHED MOD MDM 30 MIN Normal [facility] CBC AUTO DIFFon 01-12-2022 BASO # 0.0 103/ul Normal 0.0-0.1 [facility] Comment on above: Performed By: #### C BC #### [facility] [address] [address] [address] Anurag Solano Basophils/100 WBC (Bld) 0.4 % Normal 0.2-2.0 [facility] Comment on above: Performed By: #### C BC #### [facility] [address] [place] [address] Dr. Anurag Solano EO # 0.2 103/ul Normal 0.0-0.7 [facility] Comment on above: Performed By: #### C BC #### [facility] [address] [address] [address] Anurag Solano Eosinophils/100 WBC (Bld) 2.9 % Normal 0.9-7.0 [facility] Comment on above: Performed By: #### C BC #### [facility] [address] [place] [address] Dr. Anurag Solano Erythrocyte distribution width (RBC) [Ratio] 12.4 % Normal 11.0-15.0 [facility] Comment on above: Performed By: #### C BC #### [facility] [address] [place] [address] Dr. Anurag Solano Hematocrit (Bld) [Volume fraction] 41.0 % Normal 36.0-48.0 [facility] Comment on above: Performed By: #### C BC #### [facility] [address] [place] [address] Dr. Anurag Solano Hemoglobin (Bld) [Mass/Vol] 13.3 g/dL Normal 12.0-16.0 [facility] Comment on above: Performed By: #### C BC #### [facility] [address] [place] [address] Dr. Anurag Solano IG # 0.02 10e3/ul Normal 0.00-0.03 [facility] Comment on above: Performed By: #### C BC #### [facility] [address] [place] [address] Dr. Anurag Solano IG % 0.3 % Normal 0.0-0.5 [facility] Comment on above: Performed By: #### C BC #### [facility] [address] [place] [address] Dr. Anurag Solano LYMPH # 2.2 103/ul Normal 1.2-3.8 [facility] Comment on above: Performed By: #### C BC #### [facility] [address] [place] [address] Dr. Anurag Solano Lymphocytes/100 WBC (Bld) 30.1 % Normal 20.5-60.0 [facility] Comment on above: Performed By: #### C BC #### [facility] [address] [place] [address] Dr. Anurag Solano MANUAL DIFF REQ NO Normal [facility] Comment on above: Performed By: #### C BC #### [facility] [address] [place] [address] Dr. Anurag Solano MCH (RBC) [Entitic mass] 29.8 pg Normal 26.7-34.0 [facility] Comment on above: Performed By: #### C BC #### [facility] [address] [place] [address] Dr. Anurag Solano MCHC (RBC) [Mass/Vol] 32.4 g/dL Normal 29.9-35.2 [facility] Comment on above: Performed By: #### C BC #### [facility] [address] [place] [address] Dr. Anurag Solano MCV (RBC) [Entitic vol] 91.7 fL Normal 81.0-99.0 [facility] Comment on above: Performed By: #### C BC #### [facility] [address] [place] [address] Dr. Anurag Solano MONO # 0.6 103/ul Normal 0.3-0.8 [facility] Comment on above: Performed By: #### C BC #### [facility] [address] [place] [address] Dr. Anurag Solano Monocytes/100 WBC (Bld) 7.7 % Normal 1.7-12.0 [facility] Comment on above: Performed By: #### C BC #### [facility] [address] [place] [address] Dr. Anurag Solano NEUT # 4.3 103/ul Normal 1.4-6.5 [facility] Comment on above: Performed By: #### C BC #### [facility] [address] [place] [address] Dr. Anurag Solano Neutrophils/100 WBC (Bld) 58.6 % Normal 43.0-75.0 [facility] Comment on above: Performed By: #### C BC #### [facility] [address] [place] [address] Dr. Anurag Solano Platelet mean volume (Bld) [Entitic vol] 9.4 fL Critically low 9.5-13.5 [facility] Comment on above: Performed By: #### C BC #### [facility] [address] [place] [address] Dr. Anurag Solano PLT 282 103/ul Normal 150-450 [facility] Comment on above: Performed By: #### C BC #### [facility] [address] [place] [address] Dr. Anurag Solano RBC 4.47 106/ul Normal 4.20-5.40 [facility] Comment on above: Performed By: #### C BC #### [facility] [address] [place] [address] Dr. Anurag Solano WBC 7.3 103/ul Normal 4.0-11.0 [facility] Comment on above: Performed By: #### C BC #### [facility] [address] [place] [address] Dr. Anurag Solano FREE T4on 01-12-2022 Free T4 [Mass/Vol] 0.89 ng/dL Normal 0.76-1.46 [facility] Comment on above: Performed By: #### F T4 #### [facility] [address] [address] [address] Anurag Solano LIPID PROFILEon 01-12-2022 CHOL-HDL RATIO NORM SEE BELOW Normal [facility] Comment on above: Result Comment: 3.3 - 4.4 LOW RISK 4.4 - 7.1 AVERAGE RISK 7.1 - 11.0 MODERATE RISK >11.0 HIGH RISK Performed By: #### C MP, TSH, LIPID #### [facility] [address] [address] [address] Anurag Solano Cholesterol [Mass/Vol] 213 mg/dL Critically high <=200 [facility] Comment on above: Performed By: #### C MP, TSH, LIPID #### [facility] [address] [address] [address] Anurag Solano Cholesterol in HDL [Mass/Vol] 44 mg/dL Normal 40-60 [facility] Comment on above: Performed By: #### C MP, TSH, LIPID #### [facility] [address] [address] [address] Anurag Solano Cholesterol in LDL [Mass/Vol] 143.2 mg/dL Normal [facility] Comment on above: Performed By: #### C MP, TSH, LIPID #### [facility] [facility] [address] [address] [address] Anurag Solano Cholesterol.total/C holesterol in HDL [Mass ratio] 4.8 {ratio} Normal [facility] Comment on above: Performed By: #### C MP, TSH, LIPID #### [facility] [address] [address] [address] Anurag Solano HDL NORMAL > or = 60 mg/dl - LO W CARDIOVASCULAR RISK <40 mg/dl - HIGH CARDIOVASCULAR RISK Normal [facility] Comment on above: Performed By: #### C MP, TSH, LIPID #### [facility] [address] [address] [address] Anurag Solano LDL CALC NORMAL SEE BELOW Normal [facility] Comment on above: Result Comment: <100 mg/dl OPTIMAL 100 - 129 mg/dl NEAR OR ABOVE OPTIMAL 130 - 159 mg/dl BORDERLINE HIGH 160 - 189 mg/dl HIGH >190 mg/dl VERY HIGH Performed By: #### C MP, TSH, LIPID #### [facility] [address] [address] [address] Anurag Solano Triglyceride [Mass/Vol] 129 mg/dL Normal <=150 [facility] Comment on above: Performed By: #### C MP, TSH, LIPID #### [facility] [address] [address] [address] Anurag Solano VLDL CALC 25.8 mg/dL Normal [facility] Comment on above: Performed By: #### C MP, TSH, LIPID #### [facility] [address] [address] [address] Anurag Solano PROF 14(COMP METB)on 022 Albumin [Mass/Vol] 3.6 g/dL Normal 3.4-5.0 [facility] Comment on above: Performed By: #### C MP, TSH, LIPID #### [facility] [address] [address] [address] Anurag Solano Albumin/Globulin [Mass ratio] 1.1 {ratio} Normal [facility] Comment on above: Performed By: #### C MP, TSH, LIPID #### [facility] [address] [address] [address] Anurag Solano ALP [Catalytic activity/Vol] 107 U/L Normal 46-116 [facility] Comment on above: Performed By: #### C MP, TSH, LIPID #### [facility] [address] [address] [address] Anurag Solano ALT [Catalytic activity/Vol] 19 U/L Normal 14-59 [facility] Comment on above: Performed By: #### C MP, TSH, LIPID #### [facility] [address] [address] [address] Anurag Solano Anion gap [Moles/Vol] 8.3 mmol/L Normal [facility] Comment on above: Performed By: #### C MP, TSH, LIPID #### [facility] [address] [address] [address] Anurag Solano AST [Catalytic activity/Vol] 17 U/L Normal 15-37 [facility] Comment on above: Performed By: #### C MP, TSH, LIPID #### [facility] [address] [place] [address] Dr. Anurag Solano Bilirubin [Mass/Vol] 0.3 mg/dL Normal 0.2-1.0 [facility] Comment on above: Performed By: #### C MP, TSH, LIPID #### [facility] [address] [place] [address] Dr. Anurag Solano Calcium [Mass/Vol] 8.7 mg/dL Normal 8.5-10.1 [facility] Comment on above: Performed By: #### C MP, TSH, LIPID #### [facility] [address] [place] [address] Dr. Anuarg Solano Chloride [Moles/Vol] 106 mmol/L Normal 98-107 [facility] Comment on above: Performed By: #### C MP, TSH, LIPID #### [facility] [address] [place] [address] Dr. Anurag Solano CO2 [Moles/Vol] 30.3 mmol/L Normal 21.0-32.0 [facility] Comment on above: Performed By: #### C MP, TSH, LIPID #### [facility] [address] [place] [address] Dr. Anurag Solano Creatinine [Mass/Vol] 1.16 mg/dL Critically high 0.55-1.02 [facility] Comment on above: Performed By: #### C MP, TSH, LIPID #### [facility] [address] [place] [address] Dr. Anurag Solano EGFR-AF PRYDEINIG 56 mL/min/1.73m2 Critically low >=60 [facility] Comment on above: Performed By: #### C MP, TSH, LIPID #### [facility] [address] [place] [address] Dr. Anurag Solano EGFR-NON AF PRYDEINIG 47 mL/min/1.73m2 Critically low >=60 [facility] Comment on above: Performed By: #### C MP, TSH, LIPID #### [facility] [address] [place] [address] Dr. Anurag Solano Globulin (S) [Mass/Vol] 3.3 g/dL Normal [facility] Comment on above: Performed By: #### C MP, TSH, LIPID #### [facility] [address] [place] [address] Dr. Anurag Solano Glucose [Mass/Vol] 105 mg/dL Normal 74-106 [facility] Comment on above: Performed By: #### C MP, TSH, LIPID #### [facility] [address] [place] [address] Dr. Anurag Solano Potassium [Moles/Vol] 4.6 mmol/L Normal 3.5-5.1 [facility] Comment on above: Performed By: #### C MP, TSH, LIPID #### [facility] [address] [place] [address] Dr. Anurag Solano Protein [Mass/Vol] 6.9 g/dL Normal 6.4-8.2 [facility] Comment on above: Performed By: #### C MP, TSH, LIPID #### [facility] [address] [place] [address] Dr. Anurag Solano Sodium [Moles/Vol] 140 mmol/L Normal 136-145 [facility] Comment on above: Performed By: #### C MP, TSH, LIPID #### [facility] [address] [place] [address] Dr. Anurag Solano Urea nitrogen [Mass/Vol] 21.0 mg/dL Critically high 7.0-18.0 [facility] Comment on above: Performed By: #### C MP, TSH, LIPID #### [facility] [address] [place] [address] Dr. Anurag Solano Urea nitrogen/Creatinine [Mass ratio] 18.1 mg/mg Normal [facility] Comment on above: Performed By: #### C MP, TSH, LIPID #### [facility] [address] [place], [place] [address] Dr. Anurag Solano TSHon 01-12-2022 TSH 4.450 uIU/mL Critically high 0.358-3.740 [facility] Comment on above: Performed By: #### C MP, TSH, LIPID #### [facility] [address] [place], [place] [address] Dr. Anurag Solano Basic Metabolic Panelon - Anion gap 8 mmol/L Normal 7-13 [facility] Calcium 10.0 mg/dL Normal 8.6-10.2 [facility] Chloride 103 mmol/L Normal 98-107 [facility] CO2 30 mmol/L Critically high 22-29 [facility] Creatinine 0.88 mg/dL Normal 0.50-0.90 [facility] eGFR (black) mL/min/{1.73_m2} Normal >60 [facility] Comment on above: Result Comment: >60 mL/min/1.73m2 EGFR, calc. for ages 18 and older using theMDRD formula (not corrected for weight), is valid for stablerenal function. eGFR (MDRD) mL/min/{1.73_m2} Normal >60 [facility] Comment on above: Result Comment: >60 mL/min/1.73m2 EGFR, calc. for ages 18 and older using theMDRD formula (not corrected for weight), is valid for stablerenal function. Glucose mass conc 99 mg/dL Normal 74-109 [facility] Potassium molar conc 4.9 mmol/L Normal 3.5-5.1 [facility] Sodium 141 mmol/L Normal 132-144 [facility] Urea nitrogen 22 mg/dL Normal 8-23 [facility] CBC With Platelet No Differe ntialon 09-24-2017 Erythrocyte distribution width Auto Ratio (RBC) 13.2 % Normal 11.5-14.5 [facility] Erythrocytes (RBC) 4.37 10*6/uL Normal 4.20-5.40 [facility] Hematocrit (HCT) 39.9 % Normal 37.0-47.0 [facility] Hemoglobin mass conc (Bld) 13.4 g/dL Normal 12.0-16.0 [facility] MCH 30.6 pg Normal 27.0-31.3 [facility] MCHC mass conc (RBC) 33.5 % Normal 33.0-37.0 [facility] MCV 91.4 fL Normal 82.0-100.0 [facility] Platelets 256 10*3/uL Normal 130-400 [facility] WBC (Leukocytes) 7.3 10*3/uL Normal 4.8-10.8 [facility] Extra Tube, Blood Bankon Bilirubin (total) PATIENT: PETAR VILLALOBOS LOC: [facility]# : [id number] : 1955 SEX: FORDERED BY: SHAKIR FERMIN ORDERED : 09/24/2017 14:13 COLLECTED: 09/24/2017 13:52ORDER : [id number] RECEIVED : 09/24/2017 13:52 TEST NAME RESULT UNITS RANGES ABN FL STExtra Tube, Blood Bank ADEEL F Normal [facility] RBC LRon 09-24-2017 Erythrocytes (RBC) PATIENT: PETAR VILLALOBOS LOC: [facility] B[facility]# : [id number] : 1955 SEX: FORDERED BY: SHAKIR FERMIN ORDERED : 09/26/2017 13:35 COLLECTED: 09/24/2017 13:52ORDER : [id number] RECEIVED : 09/24/2017 13:52 TEST NAME RESULT UNITS RANGES ABN FL STRBC LR E0382 RBC LR W0 F Normal [facility] Type and Screen Capture 3 sc rn cellon 09-24-2017 Bilirubin (total) PATIENT: PETAR VILLALOBOS [facility] [id number] : 1955 SEX: FORDERED BY: SHAKIR FERMIN ORDERED : 09/24/2017 11:58 COLLECTED: 09/24/2017 13:52ORDER : [id number] RECEIVED : 09/24/2017 13:52 TEST NAME RESULT UNITS RANGES ABN FL STABORH Capture O POS FAntibody 3 Cell Scrn Captu NEG F Normal [facility] Culture, Urineon 08-10-2017 Culture, Urine ORDERED BY: LINDA SCHILLING: Urine Clean Catch COLLECTED: 08/10/17 14:46ANTIBIOTICS AT ADEEL.: RECEIVED : 08/10/17 15:13Culture, Urine FINAL 08/12/17 07:48 No growth 24 hours Normal [facility] Urinalysis, reflex to micros copicon 08-10-2017 Bilirubin Ql (U) Negative Normal Negative [facility] Urine, clarity CLOUDY Abnormal Clear [facility] Urine, color Yellow Normal Straw/Sauk [facility] Urine, glucose presence Negative Normal Negative [facility] Urine, hemoglobin presence LARGE Abnormal Negative [facility] Urine, ketones presence Negative Normal Negative [facility] Urine, leukocyte esterase presence Negative Normal Negative [facility] Urine, nitrite presence Negative Normal Negative [facility] Urine, pH 5.0 [pH] Normal 5.0-9.0 [facility] Urine, protein presence Negative Normal Negative [facility] Urine, specific gravity 1.031 Normal 1.005-1.03 [facility] Urine, urobilinogen 0.2 {Jigar'U}/dL Normal < 2.0 [facility] Urine Microscopicon 08-10-19 18 Urine, bacteria in sediment Many Normal [facility] Urine, epithelial cells presence in sediment 3-5 Normal [facility] Urine, erythrocytes 10-20 Abnormal 0-2 [facility] Urine, leukocytes 0-2 Normal 0-5 [facility] PELVIS 1 OR 2 Son 03-16-20 17 PELVIS 1 OR 2 [facility] [id number] [place] [address] ========Patient Name: LUMA CARTER : 1955Sex: FAge: Race: WhiteMRN: [id number]. 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 Ortho follow up. QUESTION FOR THE RADIOLOGIST: , , Views (X-RAY, PELVIS): Radiologic Protocol , , , Ordering Provider - MAXIME LEACH PA-C , PROTOCOL: AP(PA) view was obtained. COMPARISON: None FINDINGS: Soft tissues:Unchanged Bones:Unchanged Joints:Unchanged IMPRESSION: Plate fixation of symphysis pubis with mild residual distraction similar to prior study and with mild sclerosis of SI jointsMinor bilateral hip arthritis as before Electronically signed by:Negro Hernandez. Transcribed by: [email or web address], User Resident: Electronically Signed by: NEGRO HERNANDEZ @ 03/16/2017 02:12 PM Normal [facility] Comment on above: Order Comment: , , V iews (X-RAY, PELVIS): Radiologic Protocol , , , Ordering Provider - MAXIME LEACH PA-C , PELVIS 1 OR 2 Son 02-24-20 17 PELVIS 1 [facility] 2 [facility] [address] [place] [id number] ========Patient Name: LUMA CARTER : 1955Sex: FAge: Race: WhiteMRN: [id number]. Location: 84Patient Status: Date: 02/23/2017 9:15:00 AMCompleted Date: 02/23/2017 09:24 AMRequesting Provider: MAXIME LEACH Attending Provider: Report Copy To: Signs & Symptoms: S32.9XXD Fx unsp parts of lumbosacr spin \EANDE\ pelv, 7thD X05Grsjsap: AthenaComments: , , Views (X-RAY, PELVIS): AP , , , Ordering Provider - MAXIME LEACH PA-C , Exam: PELVIS 1 OR 2 VWSAccession #: [id number] PELVIS 1 OR 2 S 02/23/2017 9:24 AM EDT SIGNS AND SYMPTOMS: S32.9XXD Fx unsp parts of lumbosacr spin \EANDE\ pelv, 7thD I10 TECHNOLOGIST COMMENTS: Ortho follow up. Patient complains of pain in pelvis and in her tailbone when sitting. History of pelvis surgery on 10/24/2016. QUESTION FOR THE RADIOLOGIST: , , Views (X-RAY, PELVIS): AP , , , Ordering Provider - MAXIME LEACH PA-C , PROTOCOL: AP(PA) view was obtained. COMPARISON: January 11, 2017 FINDINGS: Soft tissues:Unchanged Bones:Unchanged Joints:Unchanged IMPRESSION: Stable plate fixation across symphysis pubis with residual widening of approximately 15 mm and unchanged sclerosis along the SI joints Electronically signed by:Negro Hernandez. Transcribed by: [email or web address], User Resident: Electronically Signed by: NEGRO HERNANDEZ @ 02/23/2017 01:09 PM Normal [facility] Comment on above: Order Comment: , , V iews (X-RAY, PELVIS): AP , , , Ordering Provider - MAXIME LEACH PA-C , PELVIS 1 OR 2 Son 01-12-20 17 PELVIS 1 OR 2 [facility] [address] [place] [address] ========Patient Name: LUMA CARTER : 1955Sex: FAge: Race: WhiteMRN: [id number]. Location: 84Patient Status: Date: 01/11/2017 1:25:00 PMCompleted Date: 01/11/2017 01:31 PMRequesting Provider: MAXIME LEACH Attending Provider: Report Copy To: Signs & Symptoms: S32.9XXD Fx unsp parts of lumbosacr spin \EANDE\ pelv, 7thD P96Vwoosxm: AthenaComments: , , Views (X-RAY, PELVIS): Radiologic Protocol , , , Ordering Provider - MAXIME LEACH PA-C , Exam: PELVIS 1 OR 2 VWSAccession #: [id number] PELVIS 1 OR 2 VWS 01/11/2017 1:31 [...] diastases. Electronically signed by:Aaron Rodgers. Transcribed by: [email or web address], User Resident: Electronically Signed by: AARON RODGERS @ 01/11/2017 03:00 PM Normal [facility] Comment on above: Order Comment: , , V iews (X-RAY, PELVIS): Radiologic Protocol , , , Ordering Edward LEACH PA-C , Vital Signs Date Time Vital Sign Value Performing Clinician Nilton singh 10-05-2023 09:200400 Body height 166 cm Celi Rodrigues MD, PhD Work Phone: [facility] 10-05-2023 09:20040 Body temperature 96.91 [degF] Celi Rodrigues MD, PhD Work Phone: [facility] 10-05-2023 09:200400 Body weight 72.58 kg Celi Rodrigues MD, PhD Work Phone: [facility] 10-05-2023 09:20-0400 Diastolic blood pressure 65 mm[Hg] Celi Rodrigues MD, PhD Work Phone: [facility] 10-05-2023 09:20-0400 Heart rate 83 /min Celi Rodrigues MD, PhD Work Phone: [facility] 10-05-2023 09:20-0400 Respiratory rate 14 /min Celi Rodrigues MD, PhD Work Phone: [facility] 10-05-2023 09:20-0400 SaO2% (BldA) [Mass fraction] 99 % Celi Rodrigues MD, PhD Work Phone: [facility] 10-05-2023 09:20-0400 Systolic blood pressure 122 mm[Hg] Celi Rodrigues MD, PhD Work Phone: [facility] Encounters Encounter Date Encounter Type Care Provider Facility Start: 07-07-2024 End: 07-07-2024 ambulatory [facility] Start: 01-17-2024 End: 01-17-2024 ambulatory [facility] Start: 01-14-2024 End: 01-14-2024 ambulatory [facility] Start: 12-31-2023 End: 12-31-[address] [facility] Start: 12-25-2023 End: 12-25-2023 ambulatory [facility] Start: 12-25-2023 Encounter for genera l adult medical examination without abnormal findings [facility] Start: 10-05-2023 End: 10-05-2023 ambulatory Celi Rodrigues MD, PhD Work Phone: [facility] Comment on above: MRI Start: 10-05-2023 E-mail encounter fro m caregiver Celi Rodrigues MD, PhD Work Phone: [facility] Start: 10-05-2023 End: 10-05-2023 Office consultation new/estab patient 80 min Celi Rodrigues MD, PhD Work Phone: [facility] Comment on above: Transient neurologic al symptoms (Primary Dx); Lip numbness; Mixed hyperlipidemia Start: 10-03-2023 End: 07-04-2024 Telephone encounter Celi Rodrigues MD, PhD Work Phone: [facility] Comment on above: Imaging/Records Start: 09-24-2023 End: 09-24-2023 ambulatory WOO LERNER Facility:[facility] Start: 08-30-2023 End: 08-31-2023 ambulatory [facility] Start: 08-30-2023 End: 08-30-2023 ambulatory [facility] Start: 08-02-2023 End: 08-02-2023 ambulatory [facility] Start: 07-24-2023 End: 07-24-2023 ambulatory [facility] Start: 07-05-2023 End: 07-05-2023 ambulatory [facility] Start: 01-12-2022 End: 01-13-[address] WOO KILLIAN Facility: Start: 09-29-2020 End: 09-03-2020 Patient encounter procedure Sabrinabashir Caceres Work Phone: [facility] Work Phone: Start: 09-03-2020 End: 09-03-2020 Patient encounter procedure Ruthie Smiley Work Phone: [facility] Work Phone: Start: 09-27-2017 End: 09-27-2017 Ambulatory TAREK A SHAKIR Jenkinsy [facility] Start: 09-24-2017 End: 09-29-2017 Ambulatory TAREK A MYCHALK Alicey [facility] Start: 05-02-2017 End: 06-01-2017 Ambulatory MAXIME LEACH Facility:[facility] Start: 04-01-2017 End: 05-02-2017 Ambulatory MAXIME LEACH Facility:[facility] Start: 03-16-2017 End: 03-17-2017 Ambulatory MAXIME LEACH Facility:[facility] Start: 03-02-2017 End: 04-01-2017 Ambulatory MAXIME LEACH Facility:[facility] Start: 02-23-2017 End: 02-24-2017 Ambulatory MAXIME LEACH Facility:[facility] Start: 01-30-2017 End: 03-02-2017 Ambulatory MAXIME LEACH Facility:[facility] Start: 01-11-2017 End: 01-12-2017 Ambulatory MAXMIE LEACH Facility:[facility] Procedures Date Procedure Procedure Detail Performing Clinician Start: 08-02-2023 Follow-up visit Follow-up WOO KILLIAN Start: 09-29-2020 Imm. administration COVID19 Moderna dose 2 Sabrina CadenceMD Work Phone: Start: 09-29-2020 SARS-CoV-2 vaccine, 0.5ml [...] TAREK DBOUK Start: 09-24-2017 TYPE AND SCREEN JENY BROWN Start: 09-24-2017 EKG 12-LEAD TAREK DBOU K Start: 07-17-2017 Lipid 1996 panel - S mckenzie or Plasma Celi Rodrigues MD, PhD Work Phone: Plan of Treatment Date Care Activity Detail Author Start: 03-31-2029 Urine microalbumin profile DTaP,Tdap,Td Vaccine (3 - Td or Tdap) [facility] Start: 06-21-2026 Diabetes Screening Diabetes Screenin g [facility] Start: 07-02-2024 Advance Directive Discussion Advance Directive Discussion [facility] Start: 03-02-2024 Covid-19 Vaccine ( season) Covid-19 Vaccine ( season) [facility] Start: 03-02-2024 Influenza vaccination Influenza Vacc ine (#1) [facility] Start: 07-02-2023 Advance Directive Discussion Advance Directive Discussion [facility] Start: 07-02-2023 Behavioral Health Screening Behavioral Health Screening [facility] Start: 07-17-2022 Lipid panel Lipid Screening [facility] Start: 09-29-2020 2nd Dose- COVI D Vaccine [facility] Work Phone: Start: 2019 Screening for osteoporosis Bone Density Screening [facility] Start: 08-01-2018 Screening for malign ant neoplasm of breast Mammogram Screening [facility] Start: 1999 Screening for malign ant neoplasm of colon [facility] Start: 1972 Anxiety Screening Anxiety Screening [facility] Start: 1972 Depression Screening Depression Scre ening [facility] Start: 1972 Hepatitis C screening Hepatitis C Sc reening [facility] Immunizations Immunization Date Immunization Notes Care Provider Fa aldo 05-16-2023 influenza virus vaccine, unspecified formulation Celi Rodrigues MD, PhD Work Phone: [facility] 09-29-2020 2nd Dose MODERNA COVID-19 Vaccine; Translations: [Moderna COVID-19 Vaccine] [facility] Work Phone: Comment on above: Note: Patient tolera meli well. No signs or symptoms of adverse reactions. Patient waited a minimum of 15 minutes. 09-03-2020 2nd Dose MODERNA COVID-19 Vaccine; Translations: [Moderna COVID-19 Vaccine] [facility] Work Phone: Comment on above: Note: Patient tolera meli well. No signs or symptoms of adverse reactions. Patient waited a minimum of 15 minutes. Payers Date Payer Category Payer Unknown ANTH [facility] [facility] AND [employer] PPO [id number] 2020-Present [phone] [address] [place] [address] PPO [id number] 2017 Unknown [id number] 1959 Unknown [id number] 1955 Unknown [id number] 1955 Unknown [id number] 6 1955 Unknown [id number] 6 1955 Unknown [id number] 6 1955 Unknown [id number] 6 1955 Unknown [id number] 6 1955 Unknown [id number] 6 1955 Unknown [id number] 6 Social History Date Type Detail Facility Tobacco smoking status Unknown if ever [facility] Work Phone: Start: 09-24-2023 Tobacco smoking stat [facility] Ex-smoker [facility] Start: 07-23-1975 End: 07-23-1976 History of tobacco use Current smoker [facility] Start: 07-23-1975 End: 07-23-1976 History of tobacco use Cigarette Smoker [facility] Start: 09-24-2023 End: 10-05-2023 Cigarettes smoked current (pack per day) - Reported 1 [facility] Start: 09-24-2023 Tobacco use and exposure Smokeless tobacco non-user [facility] Start: 09-24-2023 End: 10-05-2023 Alcohol intake Current drinker of alcohol (finding) [facility] Start: 09-24-2023 End: 10-05-2023 Tobacco use panel [facility] National Score (1-10 0), lower number is lower risk 80 [facility] Start: 08-23-2018 Alcohol Comment occasional [facility] Start: 1955 Sex Assigned At Not on file C [facility] Clinical Notes 07-24-2023 to 07-07-2024 Patient InstructionsDi Celi Guaman MD, PhD - 10/05/2023 9:00 AM EDTTelephone Encounter - Arelis Reed - 10/03/2023 12:58 PM EDTTelephone Encounter - Arelis Reed - 10/03/2023 12:58 PM EDT Note Date & Type Note Facility 07-07-2024 Note [place] [facility] - [facility] Lonnie Carter is a 69 y.o. year old female patient being seen for Palpitations ,Bradycardia (Scheduled for routine device interrogation next month. ), Hyperlipidemia (She was started on atorvastatin last month and is tolerating it well so far. ), and Shortness of Breath (More lately since she's fighting a sickness right now. ) Patient Active Problem List Diagnosis Bradycardia AV block [place] grade 2 cystocele Herniation of rectum into vagina History of open reduction and internal fixation (ORIF) procedure History of pelvic fracture Intrinsic sphincter deficiency (ISD) LBBB (left bundle branch block) Mixed incontinence urge and stress Multiple closed anterior-posterior compression fractures of pelvis (CMS/HCC) MVP (mitral valve prolapse) Primary osteoarthritis involving multiple joints SOB (shortness of breath) Urge incontinence of urine Vertigo, benign paroxysmal Urinary, incontinence, stress female Pacemaker Hyperlipidemia HPI 07/07/2024 Patient is 69-year-old female with history of left bundle branch block, bradycardia/2-1 AV block, status post dual-chamber pacemaker 06/21/2023, palpitation, mild mitral regurgitation. Last in-clinic device check was 01/17/2024 showing normal function Patient states that recently she was sick being tired and sleepy and vomiting but she has been doing her daily activities of cleaning the horses stable and shoveling snow but she feels out of breath which is unusual for her. She states that she is trying to drink enough water. She denies any chest discomfort. She denies palpitations. She feels as if she cannot get dizzy when she is short of breath but really no actual dizziness or syncope or near syncope. She usually feels that she needs to lie down and rest. She denies any cough or fever or wheezing. She denies legs edema or legs discomfort on exertion. She did not check for influenza or COVID. She is not vomiting anymore. When she arrived to the office and nurse checked her pulse it was kind of fast in the 100 but when she lied down to do EKG her heart rate went down to 87 bpm 01/14/2024 Luma Carter is a 68 y.o. female [...] or dizziness or palpitations or legs edema. ROS All systems were reviewed and they were negative except for the positive findings noted above in the history Past Medical History: Diagnosis Date Abnormal ECG AV block Bradycardia Heart valve disease Hyperlipidemia Past Surgical History: Procedure Laterality Date CTA CHEST W IV CONTRAST 10/24/2016 CT CHEST ANGIOGRAM W AND/OR WO IV CONTRAST ALBERTS CONVERSION INSERT / REPLACE / REMOVE PACEMAKER PELVIC FRACTURE SURGERY TUBAL LIGATION WRIST SURGERY Family History Problem Relation Name Age of Onset Other (pacemaker) Mother Stroke Mother Stroke Father Valvular heart disease Father Atrial fibrillation Father Social History Tobacco Use Smoking status: Never Smokeless tobacco: Never Substance Use Topics Alcohol use: Not Currently Allergies No Known Allergies Medications Current Outpatient Medications: aspirin 81 mg EC tablet, Take 81 mg by mouth in the morning., Disp: , Rfl: atorvastatin (Lipitor) 20 mg tablet, Take 1 tablet (20 mg) by mouth in the morning., Disp: 90 tablet, Rfl: 3 escitalopram (Lexapro) 10 mg tablet, Take 10 mg by mouth in the morning., Disp: , Rfl: Myrbetriq 50 mg tablet extended release 24 hr, , Disp: , Rfl: atorvastatin (Lipitor) 20 mg tablet, Take 1 tablet (20 mg) by mouth in the morning., Disp: 90 tablet, Rfl: 3 naproxen (Naprosyn) 500 mg tablet, Take 500 mg by mouth twice a day., Disp: , Rfl: pantoprazole (ProtoNix) 40 mg EC tablet, Take 1 tablet by mouth in the morning., Disp: , Rfl: Objective Visit Vitals BP 110/74 (BP Location: Right arm, Patient Position: Sitting) Pulse 87 Ht 1.651 m (5' 5 ) Wt 70.8 kg (156 lb) LMP (LMP Unknown) SpO2 99% BMI 25.96 kg/m??? OB Status Postmenopausal Smoking Status Never BSA 1.8 m??? Orthostatic blood pressures Supine blood pressure 114/70 Sitting blood pressure 109/74 Standing bl (more content not included)... [facility] 06-13-2024 Note aa [facility] 01-14-2024 Note [facility] Note Reason for cardiology [...] * Mild bibasi (more content not included)... [facility] 10-05-2023 Instructions Celi Rodrigues MD, PhD - 10/05/2023 9:56 AM EDT Stop Plavix, continue to take Aspirin 81 mg once a day. I recommend starting a cholesterol medication such Atorvastatin 40-80 mg or Rosuvastatin 20-40 mg once daily at bedtime. You may want to get your liver enzymes checked 2-3 months after starting the medication. documented in this encounter [facility] 10-05-2023 History of Present illness Narrative Images from the original note were not included. [facility] Initial Consultation requested by Woo Lerner Consultation requested by Dr. Killian for an opinion regarding TIA. My final recommendations will be communicated back to the requesting physician by way of shared Medical record or letter to requesting physician via US mail. PCP Woo Lerner MD [address] [place] [id number] [phone] CEREBROVASCULAR HISTORY Luma Carter is a very [...] detected 06/16/23: Took her horses to the [facility]. Once she had loaded the horse, she had new onset dizziness (spinning), no nausea, and fell to the left twice, no LOC, no injury to head or other body part. [place] fine right after. Drove home with her horse trailer and felt fine. 06/18/23: Called her PCP and was told to go to the ED. Went to the ED and was then transferred to [facility] Diagnosed with Left BBB bundle and AV [...] once daily. Ca Carb-Mag Cmb 11-D3-Zn Sulf [phone] da-ticc-ge-mg tab Take by mouth once daily. No [...] Size: Regular Adult) Pulse 83 Temp 36.1 C (96.9 F) (Temporal) Resp 14 Ht 166 cm (5' 5.35 ) Wt 72.6 kg (160 lb) SpO2 99% BMI 26.34 kg/m EXAM PHYSICAL EXAM: General appearance: Awake and alert. No distress. Cooperative with exam. Normal speech: no aphasia or dysarthria. NEUROLOGICAL EXAM: Mental Status: Alert, oriented to person, place and time and Follows commands. Cranial Nerves: CNII: Visual coronado full to confrontation, No APD noted on [...] upper and lower extremities, no drift Sensation: intact. Romberg's: negative Coordination: Finger-to- nose-finger intact bilaterally and Thbj-ew-ikiu intact bilaterally. Gait: normal-based. PERTINENT LABS: Cholesterol: PERTINENT IMAGING: MRI brain without contrast (08/30/23 at [facility]): IMPRESSION: 1. No acute/subacute ischemia. 2. Scattered foci of T2/FLAIR hyperintensity in the periventricular and subcortical white matter likely reflects the sequela of chronic microangiopathy. Carotid Ultrasound (08/30/23): Right: Minimal plaque with no significant ICA spectral Doppler or color flow disturbances; ICA 86/33 cm/sec. Antegrade vertebral artery flow. Left: Minimal plaque with no significant ICA spectral Doppler or color flow disturbances; ICA 86/33 cm/sec. Antegrade vertebral artery flow. Conclusions: BILATERAL: Minimal plaque without significant stenosis (<50%) of the internal carotid artery. Antegrade vertebral artery flow. Holter (08/30/23): Holter monitor was worn for 48 hours 47 minutes and 54 seconds. With a total of 228,952 heart rhythms analyzed. The minimum heart rate was 63 beats per minute. With a maximum heart rate of 110 beats per minute. And an average heart rate of 78 beats per minute. There were 102 supraventricular ectopic rhythms noted. All of which were isolated PACs. There were 468 ventricular ectopic rhythms noted. Four hundred sixty-five of which were isolated PVCs. With episodes of trigeminy. And 1 3 beat run of nonsustained ventricular tachycardia. There were 3 patient events noted. All of which corresponded to sinus rhythm with heart rates in the 60s to 70s. Patient Entered Questionnaires PROMIS/NeuroQoL Score Percentiles 10/04/2023 Physical Health Physical Function Percentile 42 Fatigue Percentile 58 Pain Interference Percentile 38 PROMIS SOCIAL ROLE SCORE Social Role Satisfaction Percentile 10/04/2023 96 10/04/2023 Mental Health NeuroQol Cognitive Function Percentile 62 General Self-Efficacy Percentile 88 Percentiles provide an indication of how a patient's score ranks in relation to the [place] general population. > 31st percentile is within normal limits or better * < 31st percentile is at least SD worse than population, which may be clinically relevant < 16th percentile is at least 1 SD worse than population and warrants attention Depression Screening: PHQ-9 Scores: PHQ-9 Self-Harm (Item 9) Response: 0 - 9 No to Mild depression 0 - Not at all 10 - 14 Moderate depression 1 - Several Days > 15 Severe depression 2 - More than half the days 3 - Nearly every day IBAN Stroke Mechanism and Scales Modified Windber Score: Score: 0 NIH Stroke Scale: LOC: 0 LOC Questions: 0 LOC Commands: 0 LOC Normal Gaze: 0 Visual Coronado: 0 Facial Palsy: 0 Motor Left Arm: 0 Motor Right Arm: 0 Motor Left Le Motor Right Le Limb Ataxia: 0 Sensory: 0 Language: 0 Dysarthria: 0 Extinction/Neglect: 0 Total Daily NIHSS: 0 IMPRESSION: Luma Carter is a very pleasant 68 year old right handed White female with 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 ASSESSMENT/PLAN: 1. Transient neurological symptoms - ICD9: 781.99, ICD10: R29.818 (primary diagnosis) 2. Lip numbness - ICD9: 782.0, ICD10: R20.0 Recurrent and transient lip and chin tingling since fall 2022. Improved since pacemaker insertion and very rare now. MRI brain from 08/30/23 negative for acute findings and no evidence of prior infarcts or significant white matter disease. Low suspicion for symptoms representing recurrent TIA or other ischemic events. Symptoms possibility related to Left BBB? No other stroke-like symptoms. Ok to stop Plavix and ASA. 3. Mixed hyperlipidemia - ICD9: 272.2, ICD10: E78.2 New diagnosis - Counseled on healthy diet and regular exercise - recommend starting statin. Patient would like her PCP to prescribe. Recommendations provided in AVS. FOLLOW UP: As needed. I spent a total of 60 minutes on the date of the service which included preparing to see the patient, [id number]-[id number] patient care, completing clinical documentation, obtaining and/or reviewing separately obtained history, performing a medically appropriate examination, counseling and educating the patient/family/caregiver, ordering medications, tests, or procedures, communicating with other HCPs (not separately reported), independently interpreting results (not separately reported), communicating results to the patient/family/caregiver, and care coordination (not separately reported). SIGNATURE Celi Rodrigues MD, PhD Staff, Vascular Neurology Click here to page documented in this encounter [facility] 10-05-2023 Note HNO ID: [id number] Author: CELI RODRIGUES MD, PhD Service: ? [...] via US mail. PCP Woo Lerner MD [address] [facility] [address] [phone] CEREBROVASCULAR HISTORY Luma Carter is a very [...] detected 06/16/23: Took her horses to the [facility]. Once she had loaded the horse, she had new onset dizziness (spinning), no nausea, and fell to the left twice, no LOC, no injury to head or other body part. [place] fine right after. Drove home with her horse trailer and felt fine. 06/18/23: Called her PCP and was told to go to the ED. Went to the ED and was then transferred to [facility] Diagnosed with Left BBB bundle and AV [...] once daily. Ca Carb-Mag Cmb 11-D3-Zn Sulf [phone] jc-uoyf-lb-mg tab Take by mouth once daily. No [...] and Follows commands. Cranial Nerves: CNII: Visual coronado full to confrontation, No APD noted on [...] drift Sensation: int (more content not included)... [facility] 10-03-2023 Telephone encounter Note Images from the original note were not included. OSH imaging/records received from [facility]: October 03, 2023 -Medical Hx & Imaging Reports available in Care Everywhere. [facility] 10-03-2023 Miscellaneous Notes Images from the original note were not included. [facility]SH [facility]: October 03, 2023 -Medical Hx & Imaging Reports available in Care Everywhere. documented in this encounter [facility] 09-24-2023 Note HNO ID: [id number] Author: YONG KEANE MD Service: ? Author Type: Physician Type: Progress Notes Filed: 09/27/2023 21:48 Note Text: [facility] [place] [facility] Department of Cardiovascular Medicine SECTION OF CARDIOVASCULAR IMAGING OUTPATIENT VISIT DATE September 24, 2023 OUTPATIENT VISIT TYPE NEW (>3yr since last seen) CHIEF COMPLAINT: Further evaluation of valve disease HISTORY OF PRESENT ILLNESS: Ms. Carter is a 68 year old female from [place], [place] who presents for follow-up. Since last [...] once daily. Ca Carb-Mag Cmb 11-D3-Zn Sulf [phone] jc-xijd-za-mg tab Take by mouth once daily. naproxen [...] have personally reviewed the above. IMPRESSION: Ms. Ohms is a 68 year old female from [place], [place] who presents for follow-up. Since last [...] prn if symptoms don't settle/improve. CONTACT INFORMATION: Yong Keane MD, PhD, [facility] [employer]ish moss picker, [facility], Staff, Section of Cardiovascular Imaging, Co-Director Cardio-Oncology Center, Pump Station Operator of the Echocardiographic Lab, [facility] Dept. Of Cardiovascular Medicine, [address] 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 She has been experiencing [...] episodes. She also is having flashes of manuela oral numbness and tingling. Denies feeling it [...] [] acetaminophen (T (more content not included)... [facility] 07-24-2023 Note Patient here for [facility] for bradycardia. She had PPM implant on 06/[address] Monsalve. She feels good s/p implant, with palpitations resolving. She has seen [facility] and [facility] in the past. Still has apt with [facility] in August 2023. Denies chest pain, SOB, and lightheadedness. Review of Systems All other systems reviewed and are negative. [facility] Evaluation note Diagnosis Transient neurological symptoms- Primary Lip numbness Disturbance of skin sensation Mixed hyperlipidemia documented in this encounter [facility] Summary Purpose Family History No Family History [...] section and content) DATE CREATED AUTHOR 12/20/2017 [facility] DATE CREATED AUTHOR AUTHOR'S ORGANIZ ATION 12/24/2017 [facility] DATE CREATED AUTHOR AUTHOR'S ORGANIZ ATION 12/28/2017 [facility] DATE CREATED AUTHOR AUTHOR'S ORGANIZ ATION 01/18/2022 [facility] DATE CREATED AUTHOR AUTHOR'S ORGANIZ ATION 09/02/2023 [facility] DATE CREATED AUTHOR AUTHOR'S ORGANIZ ATION 01/01/2024 [facility] DATE CREATED AUTHOR AUTHOR'S ORGANIZ ATION 07/12/2024 [facility] DATE CREATED AUTHOR AUTHOR'S ORGANIZ ATION 07/13/2024 [facility] Medical History (unrecognize d section and content) Includes: Medical History in patient's chartNo Medical History Recorded Includes: Medical History in patient's chartNo Medical History Recorded Evaluations & Outcomes (unre cognized section and content) Includes: Evaluations & Outcomes for active GoalsNo Outcomes Recorded Includes: Evaluations & Outcomes for active GoalsNo Outcomes Recorded Source Comments (unrecognize d section and content) In the event this informatio n is protected by the Federal Confidentiality of Alcohol and Drug Abuse Patient Records regulations: The Federal rules restrict any use of the information to criminally investigate or prosecute any alcohol or drug abuse patient.[facility] the event this information is protected by the Federal Confidentiality of Alcohol and Drug Abuse Patient Records regulations: The Federal rules restrict any use of the information to criminally investigate or prosecute any alcohol or drug abuse patient.[facility] the event this information is protected by the Federal Confidentiality of Alcohol and Drug Abuse Patient Records regulations: The Federal rules restrict any use of the information to criminally investigate or prosecute any alcohol or drug abuse patient.[facility] Reason for Visit (unrecogniz ed section and content) Reason Comments New Patient Evaluation Family History Of Stroke Reason Comments Imaging/Records Care Teams (unrecognized sec tion and content) Crystal Grinder Relationship Specialty Start Date End Date Woo Lerner [address] [place] [address] PCP - General Family Medicine 08/23/18 Crystal Grinder Relationship Specialty Start Date End Date Woo Lerner [address] [place] [address] PCP - General Family Medicine 08/23/18 Crystal Grinder Relationship Specialty Start Date End Date Woo Lerner [address] [place] [address] PCP - General Family Medicine 08/23/18 FOR RECORDS PERTAINING TO PATIENTS WHO ARE [...] BE BASED ON THE PRIMARY CLINICAL RECORDS. [employer] [facility]. provides no warranty or guarantee of the accuracy or completeness of information in this document.
== END 2024-08-25 09:36 | disposition home or self-care (01) ==
LOC: CARD 09:35
PROVIDERS: PCP Family Medicine; Visit Provider Internal Medicine Cardiovascular Disease
DX: R06.09 Other forms of dyspnea (principal)
CPT/HCPCS: 93306; 93356

== ENCOUNTER 2024-09-18 12:48 | Outpatient (OUT) | payer MEDICARE, SELFPAY ==
--- OUTSIDE RECORDS SUMMARY | 2024-09-18 13:03 | XMS_ITS | CCD ---
Author Organization [facility] Care Team Providers Care Talent Acquisition Director Name Role Phone DBOUK, TAREK A Unavailable [...] Unavailable DEFRANCE, WOO Sellers Attending Unavailable DEFRANCE, OWO Sellers Referring Unavailable DEFRANCE, WOO Sellers Primary Care Unavailable DEFRANCE, WOO Sellers Attending Unavailable DEFWOO COBOS Referring Unavailable DEFRANCE, WOO Sellers Primary Care Unavailable FABRIZIO HARTMANN Attending Unavailable WOO KILLIAN Referring Unavailable DEFWOO COBOS Primary Care Unavailable de Christina, Woo Ybarra Primary Care Provider 1( [phone] de Christina, Woo Ybarra Primary Care Provider DE CHRISTINA, WOO YBARRA Primary Care Unavaila ble DE CHRISTINA, WOO YBARRA Referring Unavaila ble CELI RODRIGUES Attending Unavailable DE CHRISTINA, WOO YBARRA Primary Care Unavaila ble KEANEYONG Attending Unavailable YONG KEANE Referring Unavailable DE CHRISTINA, WOO YBARRA Primary Care Unavaila ble YONG KEANE Referring Unavailable LEX TREADWELL Attending Unavailable ORLANDO LINDSEY Referring Unavailable LEX TREADWELL Attending Unavailable ORLANDO LINDSEY Referring Unavailable Allergies Allergy Classification Reported Allergen(s) Allergy Type Date of Onset Reaction(s) Facility (1 source) 11759,00 Drug allergy (disorder) 10-23-2016 [facility] Repository Medications Current Medications Medication Drug Class(es) Dates Sig (Normalized) Sig (Original) Ascorbic Acid (3 sources) Vitamin C ascorbic acid (V ITAMIN C ORAL) Take by mouth once daily. Active ascorbic acid (V ITAMIN C ORAL) Take by mouth once daily. 0 Active Comment on above: Take by mouth once d aily. Ca Carb-Mag Cmb 11-D3-Zn Sulf [phone] aj-clbx-yw-mg tab (3 sources) Ca Carb-Mag Cmb 11-D3-Zn Sulf [phone] ur-zdrl-ip-mg tab Take by mouth once daily. Active Ca Carb-Mag Cmb 11-D3-Zn Sulf [phone] bc-yvdu-un-mg tab Take by mouth once daily. 0 [...] symptoms and signs involving the nervous system] 04-05-2024 Episodic Other fractures (7 sources) Multiple fractures [...] Range Facility Office Visiton 07-07-2024 Follow-up visit [id number] [facility],Luma Samayoa 1955 F Date Provider Department Center 07/07/2024 [id number] TREADWELL Family History Problem Relation Age of Onset Other Mother Stroke Mother Stroke Father Valvular heart disease Father Atrial fibrillation Father Family Status - Relation Status Age at Mother Father Level of Service:40612 [place] OFFICE/OUTPATIENT ESTABLISHED MOD MDM 30 MIN Reason for Visit and Comments: Palpitations [439528] - Denies palpitations. Bradycardia [357255] - Scheduled for routine device interrogation next month. Abnormal ECG [293] Hyperlipidemia [182] - She was started on atorvastatin last month and is tolerating it well so far. Shortness of Breath [045966] - More lately since she's fighting a cold right now. [facility] 36on 06-10-2024 36 Just spoke with patient [...] provided her with the number to the [place] office so she can contact us in the future. Thanks. [facility] 36on 06-04-2024 36 Patient is calling t o report symptoms she has been having x2 weeks. She complains of chest fullness with difficulty breathing at times and sour stomach with increased bowel movements after meals. She is unsure if this is related to her cardiac device. She has not yet addressed concerns with PCP. Last seen at [facility] 07/2023. She would like a call to discuss [phone]. Thank you This phone message was created by the Ambulatory float staff. If you need litigation support analyst follow up regarding this patient, please make your appropriate clinic staff member aware. Thank you. [facility] Telephoneon 06-04-2024 Telephone [id number] [place] 1955 F Date Provider Department Center 06/04/2024 [facility] Heart[facility] Family History Problem Relation Age of Onset Other Mother Stroke Mother Stroke Father Valvular heart disease Father Atrial fibrillation Father Family Status - Relation Status Age at Mother Father [facility] 36on 02-20-2024 36 Regarding labs from 01/12/2024: [...] sent her lab orders in the mail. [facility] Office Visiton 01-14-2024 Follow-up visit [id number] Luma Carter 1955 F Date Provider Department Center 01/14/2024 [id number] MITCHELL [facility] Family History Problem Relation Age of Onset Other Mother Stroke Mother Stroke Father Valvular heart disease Father Atrial fibrillation Father Family Status - Relation Status Age at Mother Father Level of Service:65038 [place] OFFICE/OUTPATIENT ESTABLISHED LOW MDM 20 MIN [facility] CNOVon 10-05-2023 CNOV Office Visit (NECVS8 ) LUMA CARTER ([id number]) 1955 F Date Time Provider Department 10/05/23 [...] via US mail. PCP Woo Lerner MD [address] [facility] [address] [phone] CEREBROVASCULAR HISTORY Luma Carter is a very [...] detected 06/16/23: Took her horses to the [facility]. Once she had loaded the horse, she had new onset dizziness (spinning), no nausea, and fell to the left twice, no LOC, no injury to head or other body part. Simla fine right after. Drove home with her horse trailer and felt fine. 06/18/23: Called her PCP and was told to go to the ED. Went to the ED and was then transferred to [facility] Diagnosed with Left BBB bundle and [...] once daily. Ca Carb-Mag Cmb 11-D3-Zn Sulf [phone] hi-tzin-kf-mg tab Take by mouth once daily. No [...] No noted (more content not included)... Normal [facility]03[facility]20[facility] LUMA CARTER ([id number]) 1955 F Date Time Provider Department 10/03/23 CELI RODRIGUES NECVS8 During your visit today, we recorded the following information about you: Arelis Reed 07/04/2024 9:11 PM Addendum OS imaging/records received from [facility]: October 03, 2023 -Medical Hx AND [...] daily. - Ca Carb-Mag Cmb 11-D3-Zn Sulf [phone] ww-ylgi-aw-mg tab Take by mouth once daily. Problem List As Of Date: 10/03/2023 (None) Encounter Status:Closed by ARELIS REED on 07/04/24 [facility] CNOVon 09-24-2023 CNOV Office Visit (KIMBER ) LUMA CARTER ([id number]) 1955 F Date Time Provider Department 09/24/23 12:30 PM YONG KEANE During your visit today, we recorded the following information about you: Pulse Blood pressure Weight Height 89/minute 144/77 73.9 kg 1.66 m Yong Keane MD 09/27/2023 9:48 PM [facility]ly [facility] [place] [facility] Department of Cardiovascular Medicine SECTION OF CARDIOVASCULAR IMAGING OUTPATIENT VISIT DATE September 24, 2023 OUTPATIENT VISIT TYPE NEW (>3yr since last seen) CHIEF COMPLAINT: Further evaluation of valve disease HISTORY OF PRESENT ILLNESS: Ms. Carter is a 68 year old female from [place], [place] who presents for follow-up. Since last [...] SURGERY pelvic surgery S SLING BLADDER 2018 SOCIAL HISTORY Social History Tobacco Use Smoking [...] once daily. Ca Carb-Mag Cmb 11-D3-Zn Sulf [phone] kn-miam-zt-mg tab Take by mouth once daily. naproxen [...] is a 68 year old female from [place], [place] who presents for follow-up. Since last [...] CONTACT INFORMATION: Yong Keane MD, PhD, [facility] [place] Brand Development Managersocial welfare clerk, [facility] of Medicine of [facility], Staff, Section of Cardiovascular Imaging, Co-Director Cardio-Oncology Center, [place] [employer] Operator of the Echocardiographic Lab, Dash Bach Dept. Of Cardiovascular Medicine, [address] / [address] [place], [place] [address] Appt: [phone] Referring Provider: YONG KEANE [[id number]] Allergies As of Date: 09/24/2023 (No Known Allergies) Date Reviewed: 09/24/2023 Reviewed by: Javier Leach MA - Fully Assessed Primary Visit Diagnosis:LBBB (left bundle branch block) [I44.7] Other Visit Diagnoses:Pacemaker [Z95.0] Nonrheumatic mitral valve regurgitation [I34.0] Order(s):CARDIOVASCULA R MEDICINE OP FOLLOW UP APPT ORDER [[id number]] Order #: [id number]: 1 FUTURE Prescriptions as of 09/27/2023 - [...] once daily (more content not included)... Normal [facility] ECG COMPLETEon 09-24-2023 ECG COMPLETE Ventricular Rate : 8 0 BPM Atrial Rate : 80 BPM P-R Interval : 192 ms QRS Duration : 136 ms Q-T Interval : 446 ms QTC Calculation(Bazett) : 514 ms Calculated P Stem : 58 degrees Calculated R Stem : -18 degrees Calculated T Stem : 27 degrees ATRIAL-PACED RHYTHM COMPLETE LEFT BUNDLE BRANCH BLOCK ABNORMAL ECG Confirmed by BABATUNDE WEAVER MD ([id number]) on 10/14/2023 6:43:06 PM NAME : LUMA CARTER PID : [id number] : 1955 Gender : Female Race : ORD : [id number] Procedure Date : Sep 24 2023 12:35:33 Edit Date : Oct 14 2023 18:43:10 Diagnosis: ATRIAL-PACED RHYTHM COMPLETE LEFT BUNDLE BRANCH BLOCK ABNORMAL ECG Confirmed by BABATUNDE WEAVER MD ([id number]) on 10/14/2023 6:43:06 PM Test Reason : Location : 314 : J14 J1-4 Overread By : BABATUNDE WEAVER MD Edited By : BABATUNDE WEAVER MD Referred By : YONG KEANE Acquired by : MONA KRUSE [facility] MR BRAIN WO CONTon MR BRAIN [...] George MD on 08/31/2023 7:12 AM Normal [facility] CBC AUTO DIFFon 01-12-2022 BASO # 0.0 103/ul Normal 0.0-0.1 [facility] Comment on above: Performed By: #### C BC #### [facility] Laboratory [address] [address] [address] Anurag Solano Basophils/100 WBC (Bld) 0.4 % Normal 0.2-2.0 [facility] Comment on above: Performed By: #### C BC #### [facility] Laboratory [address] [address] [address] Anurag Solano EO # 0.2 103/ul Normal 0.0-0.7 [facility] Comment on above: Performed By: #### C BC #### [facility] Laboratory [address] [place] [address] Dr. Anurag Solano Eosinophils/100 WBC (Bld) 2.9 % Normal 0.9-7.0 [facility] Comment on above: Performed By: #### C BC #### [facility] [address] [place] [address] Dr. Anurag Solano Erythrocyte distribution width (RBC) [Ratio] 12.4 % Normal 11.0-15.0 [facility] Comment on above: Performed By: #### C BC #### [facility] [address] [place] [address] Dr. Anurag Solano Hematocrit (Bld) [Volume fraction] 41.0 % Normal 36.0-48.0 [facility] Comment on above: Performed By: #### C BC #### [facility] [address] [place] [address] Dr. Anurag Solano Hemoglobin (Bld) [Mass/Vol] 13.3 g/dL Normal 12.0-16.0 [facility] Comment on above: Performed By: #### C BC #### [facility] [address] [place] [address] Dr. Anurag Solano IG # 0.02 10e3/ul Normal 0.00-0.03 [facility] Comment on above: Performed By: #### C BC #### [facility] [address] [place] [address] Dr. Anurag Solano IG % 0.3 % Normal 0.0-0.5 [facility] Comment on above: Performed By: #### C BC #### [facility] [address] [place] [address] Dr. Anurag Solano LYMPH # 2.2 103/ul Normal 1.2-3.8 [facility] Comment on above: Performed By: #### C BC #### [facility] [address] [place] [address] Dr. Anurag Solano Lymphocytes/100 WBC (Bld) 30.1 % Normal 20.5-60.0 [facility] Comment on above: Performed By: #### C BC #### [facility] [address] [place] [address] Dr. Anurag Solano MANUAL DIFF REQ NO Normal [facility] Comment on above: Performed By: #### C BC #### [facility] [address] [place] [address] Dr. Anurag Solano MCH (RBC) [Entitic mass] 29.8 pg Normal 26.7-34.0 [facility] Comment on above: Performed By: #### C BC #### [facility] [address] [place] [address] Dr. Anurag Solano MCHC (RBC) [Mass/Vol] 32.4 g/dL Normal 29.9-35.2 [facility] Comment on above: Performed By: #### C BC #### [facility] [address] [place] [address] Dr. Anurag Solano MCV (RBC) [Entitic vol] 91.7 fL Normal 81.0-99.0 [facility] Comment on above: Performed By: #### C BC #### [facility] [address] [place] [address] Dr. Anurag Solano MONO # 0.6 103/ul Normal 0.3-0.8 [facility] Comment on above: Performed By: #### C BC #### [facility] [address] [place] [address] Dr. Anurag Solano Monocytes/100 WBC (Bld) 7.7 % Normal 1.7-12.0 [facility] Comment on above: Performed By: #### C BC #### [facility] [address] [address] [address] Anurag Solano NEUT # 4.3 103/ul Normal 1.4-6.5 [facility] Comment on above: Performed By: #### C BC #### [facility] [address] [address] [address] Anurag Solano Neutrophils/100 WBC (Bld) 58.6 % Normal 43.0-75.0 [facility] Comment on above: Performed By: #### C BC #### [facility] [address] [place] [address] Dr. Anurag Solano Platelet mean volume (Bld) [Entitic vol] 9.4 fL Critically low 9.5-13.5 [facility] Comment on above: Performed By: #### C BC #### [facility] [address] [place] [address] Dr. Anurag Solano PLT 282 103/ul Normal 150-450 [facility] Comment on above: Performed By: #### C BC #### [facility] [address] [place] [address] Dr. Anurag Solano RBC 4.47 106/ul Normal 4.20-5.40 [facility] Comment on above: Performed By: #### C BC #### [facility] [address] [place] [address] Dr. Anurag Solano WBC 7.3 103/ul Normal 4.0-11.0 [facility] Comment on above: Performed By: #### C BC #### [facility] [address] [place] [address] Dr. Anurag Solano FREE T4on 01-12-2022 Free T4 [Mass/Vol] 0.89 ng/dL Normal 0.76-1.46 [facility] Comment on above: Performed By: #### F T4 #### [facility] [address] [place] [address] Dr. Anurag Solano LIPID PROFILEon 01-12-2022 CHOL-HDL RATIO NORM SEE BELOW Normal [facility] Comment on above: Result Comment: 3.3 - 4.4 LOW RISK 4.4 - 7.1 AVERAGE RISK 7.1 - 11.0 MODERATE RISK >11.0 HIGH RISK Performed By: #### C MP, TSH, LIPID #### [facility] [address] [address] [address] Anurag Solano Cholesterol [Mass/Vol] 213 mg/dL Critically high <=200 [facility] Comment on above: Performed By: #### C MP, TSH, LIPID #### [facility] [address] [address] [address] Anurag Solano Cholesterol in HDL [Mass/Vol] 44 mg/dL Normal 40-60 [facility] Comment on above: Performed By: #### C MP, TSH, LIPID #### [facility] [address] [place] [address] Dr. Anurag Solano Cholesterol in LDL [Mass/Vol] 143.2 mg/dL Normal [facility] Comment on above: Performed By: #### C MP, TSH, LIPID #### [facility] [address] [place] [address] Dr. Anurag Solano Cholesterol.total/C holesterol in HDL [Mass ratio] 4.8 {ratio} Normal [facility] Comment on above: Performed By: #### C MP, TSH, LIPID #### [facility] [address] [place] [address] Dr. Anurag Solano HDL NORMAL > or = 60 mg/dl - LO W CARDIOVASCULAR RISK <40 mg/dl - HIGH CARDIOVASCULAR RISK Normal [facility] Comment on above: Performed By: #### C MP, TSH, LIPID #### [facility] [address] [place] [address] Dr. Anurag Solano LDL CALC NORMAL SEE BELOW Normal [facility] Comment on above: Result Comment: <100 mg/dl OPTIMAL 100 - 129 mg/dl NEAR OR ABOVE OPTIMAL 130 - 159 mg/dl BORDERLINE HIGH 160 - 189 mg/dl HIGH >190 mg/dl VERY HIGH Performed By: #### C MP, TSH, LIPID #### [facility] [address] [address] [address] Anurag Solano Triglyceride [Mass/Vol] 129 mg/dL Normal <=150 [facility] Comment on above: Performed By: #### C MP, TSH, LIPID #### [facility] [address] [address] [address] Anurag Solano VLDL CALC 25.8 mg/dL Normal [facility] Comment on above: Performed By: #### C MP, TSH, LIPID #### [facility] [address] [address] [address] Anurag Solano PROF 14(COMP METB)on 022 Albumin [Mass/Vol] 3.6 g/dL Normal 3.4-5.0 [facility] Comment on above: Performed By: #### C MP, TSH, LIPID #### [facility] [address] [place] [address] Dr. Anurag Solano Albumin/Globulin [Mass ratio] 1.1 {ratio} Normal [facility] Comment on above: Performed By: #### C MP, TSH, LIPID #### [facility] [address] [place] [address] Dr. Anurag Solano ALP [Catalytic activity/Vol] 107 U/L Normal 46-116 [facility] Comment on above: Performed By: #### C MP, TSH, LIPID #### [facility] [address] [place] [address] Dr. Anurag Solano ALT [Catalytic activity/Vol] 19 U/L Normal 14-59 [facility] Comment on above: Performed By: #### C MP, TSH, LIPID #### [facility] [address] [place] [address] Dr. Anurag Solano Anion gap [Moles/Vol] 8.3 mmol/L Normal [facility] Comment on above: Performed By: #### C MP, TSH, LIPID #### [facility] [address] [place] [address] Dr. Anurag Solano AST [Catalytic activity/Vol] 17 U/L Normal 15-37 [facility] Comment on above: Performed By: #### C MP, TSH, LIPID #### [facility] [address] [place] [address] Dr. Anurag Solano Bilirubin [Mass/Vol] 0.3 mg/dL Normal 0.2-1.0 [facility] Comment on above: Performed By: #### C MP, TSH, LIPID #### [facility] [address] [place] [address] Dr. Anurag Solano Calcium [Mass/Vol] 8.7 mg/dL Normal 8.5-10.1 [facility] Comment on above: Performed By: #### C MP, TSH, LIPID #### [facility] [address] [place] [address] Dr. Anurag Solano Chloride [Moles/Vol] 106 mmol/L Normal 98-107 [facility] Comment on above: Performed By: #### C MP, TSH, LIPID #### [facility] [address] [place] [address] Dr. Anurag Solano CO2 [Moles/Vol] 30.3 mmol/L Normal 21.0-32.0 [facility] Comment on above: Performed By: #### C MP, TSH, LIPID #### [facility] [address] [place] [address] Dr. Anurag Solano Creatinine [Mass/Vol] 1.16 mg/dL Critically high 0.55-1.02 [facility] Comment on above: Performed By: #### C MP, TSH, LIPID #### [facility] [address] [place] [address] Dr. Anurag Solano EGFR-AF IRAQI 56 mL/min/1.73m2 Critically low >=60 [facility] Comment on above: Performed By: #### C MP, TSH, LIPID #### [facility] [address] [place] [address] Dr. Anurag Solano EGFR-NON AF IRAQI 47 mL/min/1.73m2 Critically low >=60 [facility] Comment on above: Performed By: #### C MP, TSH, LIPID #### [facility] [address] [place] [address] Dr. Anurag Solano Globulin (S) [Mass/Vol] 3.3 g/dL Normal [facility] Comment on above: Performed By: #### C MP, TSH, LIPID #### [facility] [address] [address] [address] Anurag Solano Glucose [Mass/Vol] 105 mg/dL Normal 74-106 [facility] Comment on above: Performed By: #### C MP, TSH, LIPID #### [facility] [address] [place] [address] Dr. Anurag Solano Potassium [Moles/Vol] 4.6 mmol/L Normal 3.5-5.1 [facility] Comment on above: Performed By: #### C MP, TSH, LIPID #### [facility] [address] [address] [address] Anurag Solano Protein [Mass/Vol] 6.9 g/dL Normal 6.4-8.2 [facility] Comment on above: Performed By: #### C MP, TSH, LIPID #### [facility] [address] [place] [address] Dr. Anurag Solano Sodium [Moles/Vol] 140 mmol/L Normal 136-145 [facility] Comment on above: Performed By: #### C MP, TSH, LIPID #### [facility] [address] [address] [address] Anurag Solano Urea nitrogen [Mass/Vol] 21.0 mg/dL Critically high 7.0-18.0 [facility] Comment on above: Performed By: #### C MP, TSH, LIPID #### [facility] [address] [place] [address] Dr. Anurag Solano Urea nitrogen/Creatinine [Mass ratio] 18.1 mg/mg Normal [facility] Comment on above: Performed By: #### C MP, TSH, LIPID #### [facility] [address] [place] [address] Dr. Anurag Solano TSHon 01-12-2022 TSH 4.450 uIU/mL Critically high 0.358-3.740 [facility] Comment on above: Performed By: #### C MP, TSH, LIPID #### [facility] [address] [address] [address] Anurag Solano Basic Metabolic Panelon 03-2 Anion gap 8 mmol/L Normal 7-13 [facility] Calcium 10.0 mg/dL Normal 8.6-10.2 [facility] Chloride 103 mmol/L Normal 98-107 [facility] CO2 30 mmol/L Critically high 22-29 [facility] Creatinine 0.88 mg/dL Normal 0.50-0.90 [facility] eGFR (black) mL/min/{1.73_m2} Normal >60 [facility] Comment on above: Result Comment: >60 mL/min/1.73m2 EGFR, calc. for ages 18 and older using theMDRD formula (not corrected for weight), is valid for stablerenal function. eGFR (MDRD) mL/min/{1.73_m2} Normal >60 [facility] Comment on above: Result Comment: >60 mL/min/1.73m2 EGFR, calc. for ages 18 and older using theMDRD formula (not corrected for weight), is valid for stablerenal function. Glucose mass conc 99 mg/dL Normal 74-109 [facility] Potassium molar conc 4.9 mmol/L Normal 3.5-5.1 [facility] Sodium 141 mmol/L Normal 132-144 [facility] Urea nitrogen 22 mg/dL Normal 8-23 [facility] CBC With Platelet No Differe ntialon 09-24-2017 Erythrocyte distribution width Auto Ratio (RBC) 13.2 % Normal 11.5-14.5 [facility] Erythrocytes (RBC) 4.37 10*6/uL Normal 4.20-5.40 [facility] Hematocrit (HCT) 39.9 % Normal 37.0-47.0 [facility] Hemoglobin mass conc (Bld) 13.4 g/dL Normal 12.0-16.0 [facility] MCH 30.6 pg Normal 27.0-31.3 [facility] MCHC mass conc (RBC) 33.5 % Normal 33.0-37.0 [facility] MCV 91.4 fL Normal 82.0-100.0 [facility] Platelets 256 10*3/uL Normal 130-400 [facility] WBC (Leukocytes) 7.3 10*3/uL Normal 4.8-10.8 [facility] Extra Tube, Blood Bankon Bilirubin (total) PATIENT: PETAR VILLALOBOS LOC: PENNBESS# : [id number] : 1955 SEX: FORDERED BY: SHAKIR FERMIN ORDERED : 09/24/2017 14:13 COLLECTED: 09/24/2017 13:52ORDER : [id number] RECEIVED : 09/24/2017 13:52 TEST NAME RESULT UNITS RANGES ABN FL STExtra Tube, Blood Bank ADEEL F Normal [facility] RBC LRon 09-24-2017 Erythrocytes (RBC) PATIENT: PETAR VILLALOBOS LOC: [facility] BILL# : [id number] : 1955 SEX: FORDERED BY: SHAKIR FERMIN ORDERED : 09/26/2017 13:35 COLLECTED: 09/24/2017 13:52ORDER : [id number] RECEIVED : 09/24/2017 13:52 TEST NAME RESULT UNITS RANGES ABN FL STRBC LR [id number] RBC LR W0 F Normal [facility] Type and Screen Capture 3 sc rn cellon 09-24-2017 Bilirubin (total) PATIENT: PETAR VILLALOBOS [facility] : [id number] : 1955 SEX: FORDERED BY: SHAKIR FERMIN ORDERED : 09/24/2017 11:58 COLLECTED: 09/24/2017 13:52ORDER : [id number] RECEIVED : 09/24/2017 13:52 TEST NAME RESULT UNITS RANGES ABN FL STABORH Capture O POS FAntibody 3 Cell Scrn Captu NEG F Normal [facility] Culture, Urineon 08-10-2017 Culture, Urine ORDERED BY: LINDA SCHILLING: Urine Clean Catch COLLECTED: 08/10/17 14:46ANTIBIOTICS AT ADEEL.: RECEIVED : 08/10/17 15:13Culture, Urine FINAL 08/12/17 07:48 No growth 24 hours Normal [facility] Urinalysis, reflex to micros copicon 08-10-2017 Bilirubin Ql (U) Negative Normal Negative [facility] Urine, clarity CLOUDY Abnormal Clear [facility] Urine, color Yellow Normal [facility] Urine, glucose presence Negative Normal Negative [facility] Urine, hemoglobin presence LARGE Abnormal Negative [facility] Urine, ketones presence Negative Normal Negative [facility] Urine, leukocyte esterase presence Negative Normal Negative [facility] Urine, nitrite presence Negative Normal Negative [facility] Urine, pH 5.0 [pH] Normal 5.0-9.0 [facility] Urine, protein presence Negative Normal Negative [facility] Urine, specific gravity 1.031 Normal 1.005-1.03 [facility] Urine, urobilinogen 0.2 {Jigar'U}/dL Normal < 2.0 [facility] Urine Microscopicon 08-10-19 18 Urine, bacteria in sediment Many Normal [facility] Urine, epithelial cells presence in sediment 3-5 Normal [facility] Urine, erythrocytes 10-20 Abnormal 0-2 [facility] Urine, leukocytes 0-2 Normal 0-5 [facility] PELVIS 1 OR 2 VWSon 03-16-20 17 PELVIS 1 OR 2 [facility] [address] [place] [address] ========Patient Name: LUMA CARTER : 1955Sex: FAge: Race: WhiteMRN: [id number]. Location: 84Patient Status: Date: 03/16/2017 11:00:00 AMCompleted Date: 03/16/2017 11:26 AMRequesting Provider: MAXIME LEACH Attending Provider: Report Copy To: Signs & Symptoms: S32.9XXD Fx unsp parts of lumbosacr spin \EANDE\ pelv, 7thD S67Qznrfmd: AthenaComments: , , Views (X-RAY, PELVIS): Radiologic Protocol , , , Ordering Provider - MAXIME ANAI PA-C , Exam: PELVIS 1 OR 2 VWSAccession #: [id number] PELVIS 1 OR 2 VWS 03/16/2017 11:26 [...] hip arthritis as before Electronically signed by:Negro Hernandze. Transcribed by: [email or web address], User Resident: Electronically Signed by: NEGRO HERNANDEZ @ 03/16/2017 02:12 PM Normal [facility] Comment on above: Order Comment: , , V iews (X-RAY, PELVIS): Radiologic Protocol , , , Ordering Provider - MAXIME ANAI PA-C , PELVIS 1 OR 2 VWSon 02-24-20 17 PELVIS 1 OR 2 S [facility] [address] [place] [address] ========Patient Name: LUMA CARTER : 1955Sex: FAge: Race: WhiteMRN: [id number]. Location: 84Patient Status: Date: 02/23/2017 9:15:00 AMCompleted Date: 02/23/2017 09:24 AMRequesting Provider: MAXIME LEACH Attending Provider: Report Copy To: Signs & Symptoms: S32.9XXD Fx unsp parts of lumbosacr spin \EANDE\ pelv, 7thD A22Yapnexm: AthenaComments: , , Views (X-RAY, PELVIS): AP , , , Ordering Provider - MAXIME LEACH PA-C , Exam: PELVIS 1 OR 2 VWSAccession #: [id number] PELVIS 1 OR 2 VWS 02/23/2017 9:24 [...] joints Electronically signed by:Negro Hernandez. Transcribed by: [email or web address], User Resident: Electronically Signed by: NEGRO HERNANDEZ @ 02/23/2017 01:09 PM Normal [facility] Comment on above: Order Comment: , , V iews (X-RAY, PELVIS): AP , , , Ordering Provider - MAXIME LEACH PA-C , PELVIS 1 OR 2 VWSon 01-12-20 17 PELVIS 1 OR 2 VWS [facility] [address] [place] [place] [address] ========Patient Name: LUMA CARTER : 1955Sex: FAge: Race: WhiteMRN: [id number]. Location: 84Patient Status: Date: 01/11/2017 1:25:00 PMCompleted Date: 01/11/2017 01:31 PMRequesting Provider: MAXIME LEACH Attending Provider: Report Copy To: Signs & Symptoms: S32.9XXD Fx unsp parts of lumbosacr spin \EANDE\ pelv, 7thD S28Yjoeixo: AthenaComments: , , Views (X-RAY, PELVIS): Radiologic Protocol , , , Ordering Provider - MAXIME LEACH PA-C , Exam: PELVIS 1 OR 2 VWSAccession #: [id number] PELVIS 1 OR 2 VWS 01/11/2017 1:31 [...] diastases. Electronically signed by:Aaron Rodgers. Transcribed by: [email or web address], User Resident: Electronically Signed by: AARON RODGERS @ 01/11/2017 03:00 PM Normal [facility] Comment on above: Order Comment: , , V iews (X-RAY, PELVIS): Radiologic Protocol , , , Ordering Edward LEACH PA-C , Vital Signs Date Time Vital Sign Value Performing Clinician Faci lity 10-05-2023 09:20-0400 Body height 166 cm Celi Rodrigues MD, PhD Work Phone: [facility] 10-05-2023 09:20-0400 Body temperature 96.91 [degF] Celi Rodrigues MD, PhD Work Phone: [facility] 10-05-2023 09:20-0400 Body weight 72.58 kg Celi Rodrigues MD, PhD Work Phone: [facility] 10-05-2023 09:20-0400 Diastolic blood pressure 65 mm[Hg] Celi Rodrigues MD, PhD Work Phone: [facility] 10-05-2023 09:20-0400 Heart rate 83 /min Celi Rodrigues MD, PhD Work Phone: [facility] 10-05-2023 09:20-0400 Respiratory rate 14 /min Celi Rodrigues MD, PhD Work Phone: [facility] 10-05-2023 09:20-0400 SaO2% (BldA) [Mass fraction] 99 % Celi Rodrigues MD, PhD Work Phone: [facility] 10-05-2023 09:20-0400 Systolic blood pressure 122 mm[Hg] Celi Rodrigues MD, PhD Work Phone: [facility] Encounters Encounter Date Encounter Type Care Provider Facility Start: 08-26-2024 End: 08-26-2024 ambulatory [facility] Start: 07-07-2024 End: 07-07-2024 ambulatory [facility] Start: 01-17-2024 End: 01-17-2024 ambulatory [facility] Start: 01-14-2024 End: 01-14-2024 ambulatory [facility] Start: 12-31-2023 End: 12-31-2023 ambulatory FABRIZIO Yao HARTMANN [facility] Start: 12-25-2023 End: 12-25-2023 ambulatory [facility] Start: 12-25-2023 Encounter for genera l adult medical examination without abnormal findings [facility] Start: 10-05-2023 End: 10-05-2023 ambulatory Celi Rodrigues MD, PhD Work Phone: [facility] [place] Comment on above: MRI Start: 10-05-2023 E-mail encounter fro m caregiver Celi Rodrigues MD, PhD Work Phone: [facility] Start: 10-05-2023 End: 10-05-2023 Office consultation new/estab patient 80 min Celi Rodrigues MD, PhD Work Phone: [facility] Comment on above: Transient neurologic al symptoms (Primary Dx); Lip numbness; Mixed hyperlipidemia Start: 10-03-2023 End: 07-04-2024 Telephone encounter Celi Rodrigues MD, PhD Work Phone: [facility] Comment on above: Imaging/Records Start: 09-24-2023 End: 09-24-2023 ambulatory WOO LERNER Facility:[facility] Start: 08-30-2023 End: 08-31-2023 ambulatory WOO Mar[facility] Start: 08-30-2023 End: 08-30-2023 ambulatory WOO Mar[place] [facility] Start: 08-02-2023 End: 08-02-2023 ambulatory [facility] Start: 07-05-2023 End: 07-05-2023 ambulatory [facility] Start: 01-12-2022 End: 01-13-[address] WOO KILLIAN Facility: Start: 09-29-2020 End: 09-03-2020 Patient encounter procedure Sabrina Caceres Work Phone: [facility] Work Phone: Start: 09-03-2020 End: 09-03-2020 Patient encounter procedure Ruthie Smiley Work Phone: [facility] Work Phone: Start: 09-27-2017 End: 09-27-2017 [facility] Start: 09-24-2017 End: 09-29-2017 [facility] Start: 05-02-2017 End: 06-01-2017 Ambulatory MAXIME LEACH Facility:[facility] Start: 04-01-2017 End: 05-02-2017 Ambulatory MAXIME LEACH Facility:[facility] Start: 03-16-2017 End: 03-17-2017 Ambulatory MAXIME LEACH Facility:[facility] Start: 03-02-2017 End: 04-01-2017 Ambulatory MAXIME LEACH Facility:[facility] Start: 02-23-2017 End: 02-24-2017 Ambulatory MAXIME LEACH Facility:[facility] Start: 01-30-2017 End: 03-02-2017 Ambulatory MAXIME LEACH Facility:[facility] Start: 01-11-2017 End: 01-12-2017 Ambulatory MAXIME LEACH Facility:[facility] Procedures Date Procedure Procedure Detail Performing [...] Start: 09-27-2017 PLACE INTERMITTENT PNEUMATIC COMPRESSION DEVICE JENY SCHILLING Start: 09-27-2017 DIET NPO, NOW TAREK [facility] Start: 09-27-2017 INITIATE OXYGEN THER APY PROTOCOL JENY SCHILLING Start: 09-27-2017 NOTIFY PHYSICIAN (SPECIFY) JENY SCHILLING Start: 09-27-2017 PULSE OXIMETRY SPOT CHECK JENY HORTAK Start: 09-27-2017 VITAL SIGNS JENY DBAME K Start: 09-24-2017 BASIC METABOLIC PANEL T [facility] Start: 09-24-2017 CBC JENY HORTA K Start: 09-24-2017 EXTRA TUBE JENY HORTA K Start: 09-24-2017 PREPARE RBC (CROSSMATCH) JENY HORTAK Start: 09-24-2017 TYPE AND SCREEN JENY BROWN Start: 09-24-2017 EKG 12-LEAD JENY HORTA K Start: 07-17-2017 Lipid 1996 panel - S mckenzie or Plasma Celi Rodrigues MD, PhD Work Phone: Plan of Treatment Date Care Activity Detail Author Start: 03-31-2029 Urine microalbumin profile DTaP,Tdap,Td Vaccine (3 - Td or Tdap) [facility] Start: 06-21-2026 Diabetes Screening Diabetes Screenin g [facility] Start: 07-02-2024 Advance Directive Discussion Advance Directive Discussion [facility] Start: 03-02-2024 Covid-19 Vaccine ( season) Covid-19 Vaccine ( season) [facility] Start: 03-02-2024 Influenza vaccination Influenza Vacc ine (#1) [facility] Start: 07-02-2023 Advance Directive Discussion Advance Directive Discussion [facility] Start: 07-02-2023 Behavioral Health Screening Behavioral Health Screening [facility] Start: 07-17-2022 Lipid panel Lipid Screening [facility] Start: 09-29-2020 2nd Dose- COVI D Vaccine [facility] Work Phone: Start: 2019 Screening for osteoporosis Bone Density Screening [facility] Start: 08-01-2018 Screening for malign ant neoplasm of breast Mammogram Screening [facility] Start: 1999 Screening for malign ant neoplasm of colon [facility] Start: 1972 Anxiety Screening Anxiety Screening [facility] Start: 1972 Depression Screening Depression Scre ening [facility] Start: 1972 Hepatitis C screening Hepatitis C Sc braeden [facility] Immunizations Immunization Date Immunization Notes Care Provider Martinez carlson 05-16-2023 influenza virus vaccine, unspecified formulation Celi Rodrigues MD, PhD Work Phone: [facility] 09-29-2020 2nd Dose MODERNA COVID-19 Vaccine; Translations: [Moderna COVID-19 Vaccine] [facility] Work Phone: Comment on above: Note: Patient tolera meli well. No signs or symptoms of adverse reactions. Patient waited a minimum of 15 minutes. 09-03-2020 2nd Dose MODERNA COVID-19 Vaccine; Translations: [Moderna COVID-19 Vaccine] [facility] Work Phone: Comment on above: Note: Patient tolera meli well. No signs or symptoms of adverse reactions. Patient waited a minimum of 15 minutes. Payers Date Payer Category Payer Unknown [facility] [employer] MEDICARE ADVANTAGE PPO [id number] 2020-[facility] [phone] [address] [place] [address] PPO [id number] 2017 Unknown [id number] 1959 Unknown [id number] 1955 Unknown [id number] 1955 Unknown [id number] 6 1955 Unknown [id number] 6 1955 Unknown [id number] 6 1955 Unknown [id number] 6 1955 Unknown [id number] 6 1955 Unknown [id number] 6 1955 Unknown [id number] 6 Social History Date Type Detail Facility Tobacco smoking status Unknown if ever sm [employer] [facility] Work Phone: Start: 09-24-2023 Tobacco smoking stat [facility] Ex-smoker [facility] Start: 07-23-1975 End: 07-23-1976 History of tobacco use Current smoker [facility] Start: 07-23-1975 End: 07-23-1976 History of tobacco use Cigarette Smoker [facility] Start: 09-24-2023 End: 10-05-2023 Cigarettes smoked current (pack per day) - Reported 1 [facility] Start: 09-24-2023 Tobacco use and exposure Smokeless tobacco non-user [facility] Start: 09-24-2023 End: 10-05-2023 Alcohol intake Current drinker of alcohol (finding) [facility] Start: 09-24-2023 End: 10-05-2023 Tobacco use panel [facility] National Score (1-10 0), lower number is lower risk 80 [facility] Start: 08-23-2018 Alcohol Comment [facility] Start: 1955 Sex Assigned At Not on file [facility] Progress note 07-07-2024 Note Date & Type Note Facility 07-07-2024 Note ID Cardiology - [facility] Subjective Luma Carter is a 69 y.o. year old female patient being seen for Palpitations ,Bradycardia (Scheduled for routine device interrogation next month. ), Hyperlipidemia (She was started on atorvastatin last month and is tolerating it well so far. ), and Shortness of Breath (More lately since she's fighting a sickness right now. ) Patient Active Problem List Diagnosis Bradycardia AV block [place]-Walker grade 2 cystocele Herniation of rectum into [...] 109/74 Standing bl (more content not included)... [facility] Progress note 06-13-2024 Note Date & Type Note Facility 06-13-2024 Note aa [facility] Progress note 01-14-2024 Note Date & Type Note Facility 01-14-2024 Note [facility] Note Reason for cardiology [...] * Mild bibasi (more content not included)... [facility] Instructions 10-05-2023 Patient Instructions Note Date & Type Note Facility 10-05-2023 Instructions Celi Rodrigues MD, PhD - 10/05/2023 9:56 AM EDT Stop Plavix, continue to take Aspirin 81 mg once a day. I recommend starting a cholesterol medication such Atorvastatin 40-80 mg or Rosuvastatin 20-40 mg once daily at bedtime. You may want to get your liver enzymes checked 2-3 months after starting the medication. documented in this encounter [facility] History of Present illness Narrative 10-05-2023 Celi Rodrigues MD, PhD - 10/05/2023 9:00 AM EDT Note Date & Type Note Facility 10-05-2023 History of Presen t illness Narrative Images from the original note were not included. [facility] Initial Consultation requested by Woo Lerner Consultation requested by Dr. Killian for an opinion regarding TIA. My final recommendations will be communicated back to the requesting physician by way of shared Medical record or letter to requesting physician via US mail. PCP Woo Lerner MD [address] [facility] [address] [phone] CEREBROVASCULAR HISTORY Luma Carter is a very [...] detected 06/16/23: Took her horses to the [facility]. Once she had loaded the horse, she had new onset dizziness (spinning), no nausea, and fell to the left twice, no LOC, no injury to head or other body part. [place] fine right after. Drove home with her horse trailer and felt fine. 06/18/23: Called her PCP and was told to go to the ED. Went to the ED and was then transferred to [facility] Diagnosed with Left BBB bundle and [...] once daily. Ca Carb-Mag Cmb 11-D3-Zn Sulf [phone] kk-yqbg-xx-mg tab Take by mouth once daily. No [...] negative Coordination: Finger-to- nose-finger intact bilaterally and Fotj-zi-egrk intact bilaterally. Gait: normal-based. PERTINENT LABS: Cholesterol: PERTINENT IMAGING: MRI brain without contrast (08/30/23 at [facility]): IMPRESSION: 1. No acute/subacute ischemia. 2. [...] day IBAN Stroke Mechanism and Scales Modified Yates Score: Score: 0 NIH Stroke Scale: LOC: [...] which included preparing to see the patient, [id number] patient care, completing clinical documentation, obtaining and/or [...] here to page documented in this encounter [facility] Progress note 10-05-2023 Note Date & Type Note Facility 10-05-2023 Note HNO ID: [id number] Author: CELI RODRIGUES MD, PhD Service: ? [...] via US mail. PCP Woo Lerner MD [address] [address] [phone] CEREBROVASCULAR HISTORY Luma Carter is a very [...] detected 06/16/23: Took her horses to the [facility]. Once she had loaded the horse, she had new onset dizziness (spinning), no nausea, and fell to the left twice, no LOC, no injury to head or other body part. [place] fine right after. Drove home with her horse trailer and felt fine. 06/18/23: Called her PCP and was told to go to the ED. Went to the ED and was then transferred to [facility] Diagnosed with Left BBB bundle and [...] once daily. Ca Carb-Mag Cmb 11-D3-Zn Sulf [phone] ez-pxph-lm-mg tab Take by mouth once daily. No [...] drift Sensation: int (more content not included)... [facility] Telephone encounter Note 10-03-2023 Telephone Encounter - Arelis Reed - 10/03/2023 12:58 PM EDT Note Date & Type Note Facility 10-03-2023 Telephone encount er Note Images from the original note were not included. OS imaging/records received from [facility]: October 03, 2023 -Medical Hx & Imaging Reports available in Care Everywhere. [facility] Note 10-03-2023 Telephone Encounter - Arelis Reed - 10/03/2023 12:58 PM EDT Note Date & Type Note Facility 10-03-2023 Miscellaneous Notes Formattin g of this note might be different from the original. Images from the original note were not included. OSH imaging/records received from [facility]: October 03, 2023 -Medical Hx & Imaging Reports available in Care Everywhere. documented in this encounter [facility] Progress note 09-24-2023 Note Date & Type Note Facility 09-24-2023 Note HNO ID: [id number] Author: YONG KEANE MD Service: ? Author Type: Physician Type: Progress Notes Filed: 09/27/2023 21:48 Note Text: [facility] [place] [facility] Department of Cardiovascular Medicine SECTION OF CARDIOVASCULAR IMAGING OUTPATIENT VISIT DATE September 24, 2023 OUTPATIENT VISIT TYPE NEW (>3yr since last seen) CHIEF COMPLAINT: Further evaluation of valve disease HISTORY OF PRESENT ILLNESS: Ms. Carter is a 68 year old female from [place], [place] who presents for follow-up. Since last [...] once daily. Ca Carb-Mag Cmb 11-D3-Zn Sulf [phone] jt-xbio-ex-mg tab Take by mouth once daily. naproxen [...] have personally reviewed the above. IMPRESSION: Ms. Crater is a 68 year old female from [place] who presents for follow-up. Since last [...] CONTACT INFORMATION: Yong Keane MD, PhD, [facility] Brand Development Managersocial welfare clerk, [facility] of Medicine of [facility], Staff, Section of Cardiovascular Imaging, Co-Director Cardio-Oncology Center, [place] [employer] Operator of the Echocardiographic Lab, [facility] Dept. Of Cardiovascular Medicine, [address] / [address] [place], [place] [address] Appt: [phone] [facility] Evaluation note Note Date & Type Note Facility Evaluation note Diagnosis Transient neurological symptoms- Primary Lip numbness Disturbance of skin sensation Mixed hyperlipidemia documented in this encounter [facility] Summary Purpose Family History No Family [...] Encounter for Immunization 1st COVID Vaccine carolann Oliveirag PharmD 09/03/2020 Findings Encounter Date Encounter for Immunization 2nd Dose- COV ID Vaccine with Sabrina Caceres PharmD 09/29/2020 Encounter for Immunization 1st COVID Vaccine wit h Ruthie Blevinsyng PharmD 09/03/2020 Instructions Instructions not supported for [...] section and content) DATE CREATED AUTHOR 12/20/2017 [facility] DATE CREATED AUTHOR AUTHOR'S ORGANIZ ATION 12/24/2017 [facility] DATE CREATED AUTHOR AUTHOR'S ORGANIZ ATION 12/28/2017 [facility] DATE CREATED AUTHOR AUTHOR'S ORGANIZ ATION 01/18/2022 [facility] DATE CREATED AUTHOR AUTHOR'S ORGANIZ ATION 09/02/2023 [facility] DATE CREATED AUTHOR AUTHOR'S ORGANIZ ATION 01/01/2024 [facility] DATE CREATED AUTHOR AUTHOR'S ORGANIZ ATION 07/12/2024 [facility] DATE CREATED AUTHOR AUTHOR'S ORGANIZ ATION 08/28/2024 [facility] Medical History (unrecognize d section and content) [...] or prosecute any alcohol or drug abuse patient.[facility] the event this information is protected by the Federal Confidentiality of Alcohol and Drug Abuse Patient Records regulations: The Federal rules restrict any use of the information to criminally investigate or prosecute any alcohol or drug abuse patient.[facility] the event this information is protected by the Federal Confidentiality of Alcohol and Drug Abuse Patient Records regulations: The Federal rules restrict any use of the information to criminally investigate or prosecute any alcohol or drug abuse patient.[facility] Reason for Visit (unrecogniz ed section and content) Reason Comments New Patient Evaluation Family History Of Stroke Reason Comments Imaging/Records Care Teams (unrecognized sec tion and content) Talent Acquisition Director Relationship Specialty Start Date End Date de Woo Gentile [address] [place] [address] PCP - General Family Medicine 08/23/18 Talent Acquisition Director Relationship Specialty Start Date End Date de Woo Gentile [address] [place] [address] PCP - General Family Medicine 08/23/18 Talent Acquisition Director Relationship Specialty Start Date End Date de Woo Gentile [address] [place] [address] PCP - General Family Medicine 08/23/18 FOR [...] BE BASED ON THE PRIMARY CLINICAL RECORDS. [facility] [employer] [facility]. provides no warranty or guarantee of the accuracy or completeness of information in this document.
[2024-09-18 13:33] LABS: Anion Gap 10.3; BUN Creatinine Ratio 14.4; Calcium 9.2 mg/dL (8.5-10.1); Carbon Dioxide 31.3 mmol/L (21.0-32.0); Chloride 104 mmol/L (98-107); Estimated GFR (African America 55 (>=60 mL/min/1.73m^2); Estimated GFR (Non-African Ame 45 (>=60 mL/min/1.73m^2); Glucose 101 mg/dL (74-106); Potassium 4.6 mmol/L (3.5-5.1); Sodium 141 mmol/L (136-145)
== END 2024-09-18 12:49 | disposition home or self-care (01) ==
PROVIDERS: PCP Family Medicine; Visit Provider Internal Medicine Cardiovascular Disease
DX: R06.09 Other forms of dyspnea (principal)
CPT/HCPCS: 36415; 80048; 83880

== ENCOUNTER 2024-10-30 15:56 | Outpatient (OUT) | payer MEDICARE, SELFPAY ==
[2024-10-30 16:25] LABS: Basophils Percent Auto 0.3 % (0.2-2.0); Eosinophils Absolute Auto 0.2 10^3/uL (0.0-0.7); Eosinophils Percent Auto 2.2 % (0.9-7.0); Hematocrit 38.9 % (36.0-48.0); Hemoglobin 13.1 g/dL (12.0-16.0); Immature Granulocytes Abs Auto 0.02 10^3/uL (0.00-0.03); Immature Granulocytes Pct Auto 0.2 % (0.0-0.5); Lymphocytes Absolute Auto 2.1 10^3/uL (1.2-3.8); Lymphocytes Percent Auto 23.6 % (20.5-60.0); Mean Corpuscular HGB Conc 33.7 g/dL (29.9-35.2); Mean Corpuscular Hemoglobin 30.5 pg (26.7-34.0); Mean Corpuscular Volume 90.7 fL (81.0-99.0); Mean Platelet Volume 9.3 fL (9.5-13.5); Monocytes Absolute Auto 0.7 10^3/uL (0.3-0.8); Monocytes Percent Auto 7.5 % (1.7-12.0); Neutrophils Percent Auto 66.2 % (43.0-75.0); Platelet Count 236 10^3/uL (150-450); Red Blood Count 4.29 10^6/uL (4.20-5.40); Red Cell Distribution Width 13.1 % (11.0-15.0)
[2024-10-30 17:19] LABS: Erythrocyte Sedimentation Rate 5 mm/hr (<=30)
== END 2024-10-30 15:57 | disposition home or self-care (01) ==
LOC: LAB 16:00
PROVIDERS: PCP Family Medicine
DX: R63.4 Abnormal weight loss (principal)
CPT/HCPCS: 36415; 85025; 85652

== ENCOUNTER 2025-02-05 15:06 | Emergency (ER) | payer MEDICARE, SELFPAY ==
[2025-02-05 15:09] VITALS: BP 150/80; PULSE 83; TEMP 37.1; O2SAT 98; BMI 27.5
--- OUTSIDE RECORDS SUMMARY | 2025-02-05 15:20 | XMS_ITS | Encounter Summary ---
Author Organization [employer] Address [id number] [address] [place] [address] Care Team Providers Care Slot Router Name Role Phone Gil Brar MD Primary Care Provider [phone] Encounter Details Date Type Department Care Team (Late st Contact Info) Description 06/22/2023 Telephone [facility] [address] [place] [address] Florence Driscoll CMA Social History Tobacco Use Types Packs/Day Years Used Date Smoking Tobacco: Former Cigarettes Smokeless Tobacco: Never Comments:Casual smoker, less than a pack a week Alcohol Use Standard Drinks/Week Comments Yes 4 (1 standard drink = 0.6 oz pur e alcohol) AUDIT-C Answer Date Recorded Frequency of Alcohol Consumption 2-3 times a wee k 05/25/2020 Average Number of Drinks 1 or 2 020 Frequency of Binge Drinking Never 05/03 PHQ-2 Answer Date Recorded Total Score 0 12/20/2022 Childcare Answer Date Recorded Childcare Unknown 12/11/2018 Employment Answer Date Recorded Employment Unknown 12/11/2018 Hunger Screening Answer Date Recorded Within the past 12 months we worried whether our food would run out before we got money to buy more. Never True 01/10/2023 Within the past 12 months th e food we bought just didn't last and we didn't have money to get more. Never True 01/10/2023 Purpose - Life Answer Date Recorded Purpose and direction in life Unknown Comments No Sex and Gender Information Value Date Recorded Sex Assigned at Not on file Legal Sex Female 11:27 AM EDT Gender Identity Not on file Sexual Orientation Not on file documented as of this encounter Miscellaneous Notes * Telephone Encounter - Florence Driscoll CMA - 06/22/2023 3:27 PM EST Patient scheduled for MARIA DE JESUS 07/05/23. [facility] for pacemaker placement. Records in careeverywhere. Please call patient. Thanks! * Telephone Encounter - Nela Phillips RN - 06/22/2023 3:27 PM EST Got it!! Thanks. I will call her today. documented in this encounter Plan of Treatment Upcoming Encounters Date Type Department Care Team (Late st Contact Info) Description 02/10/2025 10:30 AM EDT Office Visit [facility] [address] [place] [phone] Gil Brar MD [address] [place] [address] documented as of this encounter Visit Diagnoses Not on filedocumented in this encounter Additional Health Concerns Assessment Noted Time PHQ-9 Depression Total Score: 0 12/21/19 23 3:00 PM EDT A Body Mass Index follow-up plan has been documented for the patient 11/22/2018 2:06 PM EDT documented as of this encounter Care Teams Slot Router Relationship Specialty Start Date End Date Gil Brar MD [address] [place] [phone] PCP - General Internal Medicine 10/30/24 documented as of this encounter
--- OUTSIDE RECORDS SUMMARY | 2025-02-05 15:20 | XMS_ITS | Clinical Summary ---
Author Organization [facility] Healthcare Address [address] [place] [address] Care Team Providers Care Operations Liaison Name Role Phone Unavailable Primary Care Provider Unavailabl e Social History Tobacco Use Types Packs/Day Years Used Date Smoking Tobacco: Never Assessed Comments Unknown Sex and Gender Information Value Date Recorded Sex Assigned at Not on file Legal Sex Female 7:37 PM EDT Gender Identity Not on file Sexual Orientation Not on file Last Filed Vital Signs Vital Sign Reading Time Taken Comments Blood Pressure 126/80 07/30/2017 12:00 PM EST Pulse - - Temperature - - Respiratory Rate - - Oxygen Saturation - - Inhaled Oxygen Concentration - - Weight 72.4 kg (159 lb 9.6 oz) 07/30/2017 12:00 PM EST Height 165.1 cm (5' 5 ) 07/30/2017 12:00 PM EST Body Mass Index 26.56 07/30/2017 12:00 PM EST Plan of Treatment Not on file
--- OUTSIDE RECORDS SUMMARY | 2025-02-05 15:20 | XMS_ITS | Encounter Summary ---
Author Organization [facility] [employer] Address [id number] [address] [place] [address] Care Team Providers Care Application Operations Engineer Name Role Phone Gil Brar MD Primary Care Provider [phone] Encounter Details Date Type Department Care Team (Late st Contact Info) Description 01/21/2024 Orders Only [facility] [address] [place] [address] External, Scanning Provider Social History Tobacco Use Types Packs/Day Years Used Date Smoking Tobacco: Former Cigarettes Smokeless Tobacco: Never Comments:Casual smoker, less than a pack a week Alcohol Use Standard Drinks/Week Comments Yes 0 (1 standard drink = 0.6 oz pur e alcohol) occasional AUDIT-C Answer Date Recorded Frequency of Alcohol Consumption 2-3 times a wee k 05/25/2020 Average Number of Drinks 1 or 2 020 Frequency of Binge Drinking Never 05/03 PHQ-2 Answer Date Recorded Total Score 3 12/25/2023 Childcare Answer Date Recorded Childcare Unknown 12/11/2018 Employment Answer Date Recorded Employment Unknown 12/11/2018 Hunger Screening Answer Date Recorded Within the past 12 months we worried whether our food would run out before we got money to buy more. Never True 12/25/2023 Within the past 12 months th e food we bought just didn't last and we didn't have money to get more. Never True 12/25/2023 Purpose - Life Answer Date Recorded Purpose and direction in life Unknown Comments No Sex and Gender Information Value Date Recorded Sex Assigned at Not on file Legal Sex Female 11:27 AM EDT Gender Identity Not on file Sexual Orientation Not on file documented as of this encounter Plan of Treatment Upcoming Encounters Date Type Department Care Team (Late st Contact Info) Description 02/10/2025 10:30 AM EDT Office Visit [facility] [address] [place] [phone] Gil Brar MD [address] [place] [address] [phone] documented as of this encounter Procedures Procedure Name Priority Date/Time Associated Diagnosis Comments MAMMOGRAPHY Routine 01/09/2024 documented in this encounter Results * MAMMOGRAPHY (01/09/2024) Anatomical Region Laterality Modality Other 01/09/2024 us Scanning Provider External HEALTH MAINTENANCE Fi nal Result documented in this encounter Visit Diagnoses Not on filedocumented in this encounter Additional Health Concerns Assessment Noted Time PHQ-9 Depression Total Score: 3 12/25/19 24 10:00 AM EDT A Body Mass Index follow-up plan has been documented for the patient 11/22/2018 2:06 PM EDT documented as of this encounter Care Teams Application Operations Engineer Relationship Specialty Start Date End Date Gil Brar MD [address] [place] [phone] PCP - General Internal Medicine 10/30/24 documented as of this encounter
--- OUTSIDE RECORDS SUMMARY | 2025-02-05 15:20 | XMS_ITS | Encounter Summary ---
Author [facility] Address [id number] [address] [place] [address] Care Team Providers Care Crate Builder Name Role Phone Gil Brar MD Primary Care Provider [phone] Reason for Visit * Reason Onset Date Comments Med Refill 12/02/2020 Encounter Details Date Type Department Care Team (Late st Contact Info) Description 12/02/2020 Refill [facility] [address] [place] [phone] Albertina Lantigua CMA Social History Tobacco Use Types Packs/Day Years Used Date Smoking Tobacco: Former Smokeless Tobacco: Never Alcohol Use Standard Drinks/Week Comments Yes 0 (1 standard drink = 0.6 oz pur e alcohol) AUDIT-C Answer Date Recorded Frequency of Alcohol Consumption 2-3 times a wee k 05/25/2020 Average Number of Drinks 1 or 2 020 Frequency of Binge Drinking Never 05/03 PHQ-2 Answer Date Recorded Total Score 0 12/03/2020 Childcare Answer Date Recorded Childcare Unknown 12/11/2018 Employment Answer Date Recorded Employment Unknown 12/11/2018 Purpose - Life Answer Date Recorded Purpose and direction in life Unknown Comments No Sex and Gender Information Value Date Recorded Sex Assigned at Not on file Legal Sex Female 11:27 AM EDT Gender Identity Not on file Sexual Orientation Not on file COVID-19 Exposure Response Date Recorded In the last month, have you been in contact with someone who was confirmed or suspected to have Coronavirus / COVID-19? No / Unsure 12/03/2020 10:32 AM EDT documented as of this encounter Miscellaneous Notes * Telephone Encounter - Albertina Lantigua CMA - 12/02/2020 11:42 AM EDT Requesting refill of propranolol to [place] documented in this encounter Plan of Treatment Upcoming Encounters Date Type Department Care Team (Late st Contact Info) Description 02/10/2025 10:30 AM EDT Office Visit [facility] [address] [place] [phone] Gil Brar MD [address] [place] [phone] documented as of this encounter Visit Diagnoses Not on filedocumented in this encounter Additional Health Concerns Assessment Noted Time PHQ-9 Depression Total Score: 6 11/06/19 21 10:00 AM EDT A Body Mass Index follow-up plan has been documented for the patient 11/22/2018 2:06 PM EDT documented as of this encounter Care Teams Crate Builder Relationship Specialty Start Date End Date Gil Brar MD [address] [place] [address] PCP - General Internal Medicine 10/30/24 documented as of this encounter
--- OUTSIDE RECORDS SUMMARY | 2025-02-05 15:20 | XMS_ITS | Encounter Summary ---
Author Organization [facility] [employer] Address [id number] [address] [place] [address] Care Team Providers Care Spray Drier Name Role Phone Gil Brar MD Primary Care Provider [phone] Encounter Details Date Type Department Care Team (Late st Contact Info) Description 01/13/2022 Orders Only [facility] [address] [place] [address] Rody García LPN Mixed hyperlipidemia Social History Tobacco Use Types Packs/Day Years [...] PHQ-2 Answer Date Recorded Total Score 0 01/11/2022 Childcare Answer Date Recorded Childcare Unknown 12/11/2018 [...] have Coronavirus / COVID-19? No / Unsure 01/11/2022 10:21 AM EDT documented as of this encounter Plan of Treatment Upcoming Encounters Date Type Department Care Team (Late st Contact Info) Description 02/10/2025 10:30 AM EDT Office Visit [facility] [address] [place] [phone] Gil Brar MD [address] [place] [address] documented as of this encounter Procedures Procedure Name Priority Date/Time Associated Diagnosis Comments THYROID PROFILE INCLUDES TSH FT4 Routine 01/12/2022 Mixed hyperlipidemia CBC WITH AUTO DIFFERENTIAL Routine 01/12/2022 Mixed hyperlipidemia LIPID PROFILE Routine 01/12/2022 Mixed hyperlipidemia COMPREHENSIVE METABOLIC PANEL Routine 01/12/2022 Mixed hyperlipidemia documented in this encounter Results * CBC auto differential (01/12/2022) 01/12/2022 rC Killian MD LAB BLOOD ORDERABLES Final R Contacts+[facility] Performing Organization Address [facility] Co de Phone Number SUNQUEST * Comprehensive metabolic panel (01/12/2022) 01/12/2022 Cr Killian MD LAB BLOOD ORDERABLES Final R esult Performing Organization Address [facility] Co de Phone Number SUNQUEST * (ABNORMAL) Lipid profile (01/12/2022) External Cholesterol 213(A) <=200 [facility]QUEST External Cholesterol:Hdl 4.8 4.4 - 7.1 [facility]QUEST External Hdl Cholesterol 44 40 - 60 [facility]QUEST External Ldl (Calc) 143.2(A) 100 - 129 [facility]QUEST External Triglycerides 129 <=150 SUNQUEST External Very Low Lipoprotein 25.8 SUNQUEST 01/12/2022 Cr Killian MD LAB BLOOD ORDERABLES Final R esult Performing Organization Address [facility] de Phone Number SUNQUEST * Thyroid profile includes TSH FT4 (01/12/2022) 01/12/2022 Cr Killian MD LAB BLOOD ORDERABLES Final R esult Performing Organization Address [facility] de Phone Number SUNQUEST documented in this encounter Visit Diagnoses Diagnosis Mixed hyperlipidemia documented in this encounter Additional Health Concerns Assessment Noted Time PHQ-9 Depression Total Score: 0 01/12/20 22 11:00 AM EDT A Body Mass Index follow-up plan has been documented for the patient 11/22/2018 2:06 PM EDT documented as of this encounter Care Teams Spray Drier Relationship Specialty Start Date End Date Gil Brar MD [address] [place] [address] PCP - General Internal Medicine 10/30/24 documented as of this encounter
--- OUTSIDE RECORDS SUMMARY | 2025-02-05 15:20 | XMS_ITS | Clinical Summary ---
Author Organization [facility] Address [address] [place] [address] Care Team Providers Care Basket Maker Name Role Phone Cr Killian MD Primary Care Provider [phone] Allergies No known active allergies Medications Myrbetriq 50 mg tablet extended release 24 hr 3 Active naproxen (Naprosyn) 500 mg tablet Take 500 mg by mouth twice a day. 8 Active escitalopram (Lexapro) 10 mg tablet Take 10 mg by mouth in the morning. 4 Active pantoprazole (ProtoNix) 40 mg EC tablet Take 1 tablet by mouth in the morning. 4 Active aspirin 81 mg EC tablet Take 81 mg by mouth in the morning. 4 Active atorvastatin (Lipitor) 20 mg tabletIndications:H yperlipidemia, unspecified hyperlipidemia type Take 1 tablet (20 mg) by mouth in the morning. 90 tablet 3 4 06/13/20 25 Active atorvastatin (Lipitor) 20 mg tabletIndications:H yperlipidemia, unspecified hyperlipidemia type Take 1 tablet (20 mg) by mouth in the morning. 90 tablet 3 5 08/19/19 26 Active lisinopril 5 mg tabletIndications:E ssential hypertension Take 1 tablet (5 mg) by mouth once daily as directed. 90 tablet 3 5 10/14/19 26 Active Active Problems Problem Noted Date Diagnosed Date Tachycardia 07/07/2024 Pacemaker 01/14/2024 Hyperlipidemia 01/14/2024 History of open reduction an d internal fixation (ORIF) procedure 07/24/2023 07/24/2023 Bradycardia 06/19/2023 AV block 06/18/2023 Vertigo, benign paroxysmal 05/05/201907/24 LBBB (left bundle branch block) 06/14/2018 07/24/2023 Dyspnea on exertion 06/14/2018 07/24/2023 Urinary, incontinence, stress female 10/02/2017 Lincoln-Walker grade 2 cystocele 09/07/2017 0 07/24/2023 Herniation of rectum into vagina 09/07/2017 07/24/2023 History of pelvic fracture 08/10/201707/24 Intrinsic sphincter deficiency (ISD) 08/10/2017 07/24/2023 Mixed incontinence urge and stress 08/10/2017 07/24/2023 Urge incontinence of urine 08/10/201707/24 MVP (mitral valve prolapse) 07/16/201707/03 Primary osteoarthritis involving multiple joints 07/16/2017 07/24/2023 Multiple closed anterior-pos terior compression fractures of pelvis 11/13/2016 07/24/2023 Encounters Date Type Department Care Team Description 01/14/[address] [facility] [address] [place] [phone] Brooklyn Salgado MA 12/24/2024 8:40 AM EDT Ancillary Procedure [facility] [address] [place] [phone] Adjustment and management of cardiac pacemaker 12/14/2024 Orders Only [facility] [address] [place] [phone] Pan Monsalve MD from Last 3 Months Family History Medical History Relation Name Comments Atrial fibrillation Father Stroke Father Valvular heart disease Father Stroke Mother pacemaker Mother Relation Name Status Comments Father Mother Social History Tobacco Use Types Packs/Day Years Used Date Smoking Tobacco: Never Smokeless Tobacco: Never Tobacco Cessation:Counseling Given: Not Answered Alcohol Use Standard Drinks/Week Comments Not Currently 0 (1 standard drink = 0.6 oz pur e alcohol) Humiliation, Afraid, Rape, and Kick questionnair e Answer Date Recorded Within the last year, have y ou been afraid of your partner or ex-partner? No 06/19/2023 Emotionally Abused Not on file 06/19/2023 Physically Abused Not on file 06/19/2023 Sexually Abused Not on file 06/19/2023 Overall Financial Resource Strain (CARDIA) Answe r Date Recorded How hard is it for you to pa y for the very basics like food, housing, medical care, and heating? Not hard at all 06/19/2023 [place] Safety & Environment Answer Date Rec orded Within the last year, have y ou been afraid of your partner or ex-partner? No 06/19/2023 Emotionally Abused Not on file 06/19/2023 Physically Abused Not on file 06/19/2023 Sexually Abused Not on file 06/19/2023 In the past year have you be en physically or sexually abused? Unrecognized value 06/19/2023 Transportation Answer Date Recorded In the past 12 months, has l ack of transportation kept you from medical appointments or from getting medications? No 06/19/2023 Lack of Transportation (Non-Medical) Not on file 06/19/2023 Housing Stability Vital Sign Answer Lucho e Recorded Unable to Pay for Housing in the Last Year Not o n file 06/19/2023 Number of Places Lived in the Last Year Not on f ile 06/19/2023 In the last 12 months, was t here a time when you did not have a steady place to sleep or slept in a alf (including now)? No 06/19/2023 Hunger Vital Sign Answer Date Recorded Within the past 12 months, y ou worried that your food would run out before you got the money to buy more. Never true 06/19/20 23 Ran Out of Food in the Last Year Not on file 06/19/2023 Comments No Sex and Gender Information Value Date Recorded Sex Assigned at Female 06/19/2023 2:21 PM EST Legal Sex Female 9:55 PM EDT Gender Identity Female 06/19/2023 2:21 PM EST Sexual Orientation Heterosexual or Straight 06/01 2:21 PM EST Last Filed Vital Signs Vital Sign Reading Time Taken Comments Blood Pressure 98/64 07/07/2024 12:30 PM EST Pulse 87 07/07/2024 11:21 AM EST Temperature 36.9 C (98.4 F) 06/22/2023 8:30 AM EST Respiratory Rate 17 06/22/2023 1:33 PM EST Oxygen Saturation 99% 07/07/2024 11:21 AM EST Inhaled Oxygen Concentration - - Weight 70.8 kg (156 lb) 07/07/2024 11:21 AM EST Height 165.1 cm (5' 5 ) 07/07/2024 11:21 AM EST Body Mass Index 25.96 07/07/2024 11:21 AM EST Plan of Treatment Upcoming Encounters Date Type Department Care Team (Late st Contact Info) Description 02/10/2025 10:45 AM EDT Ancillary Procedure [facility] [address] [place] [phone] 03/09/2025 11:20 AM EDT Office Visit [facility] [address] [place] [phone] Angle Treadwell MD [address] [place] [place] [address] Health Maintenance Due Date Last Done Comments CT Colonography 1954 Colonoscopy 1954 Colorectal Cancer Screening 1954 FIT-DNA 1954 FIT 1954 FOBT 1954 Medicare Annual Wellness (AWV) 1954 Sigmoidoscopy 1954 Depression Screening 1966 Fall Risk Screening 2019 Mammogram 08/01/2019 08/01/2017 COVID-19 Vaccine ( season) 2024 05/11/2024, 05/16/2023, 06/20/2022, Additional history exists Influenza Vaccine (#1) 2025 , 05/16/2023, 03/05/2022, Additional history exists Adult Tetanus 03/31/2029 03/31/2019, 09/12/2011 Zoster Vaccines Completed 03/29/2020, 07/20/2019 Pneumococcal Vaccine: 50+ Years Completed 06/17/2024, 03/05/2022, 03/05/2022, Additional history exists HIB Vaccines Aged Out No longer eligi ble based on patient's age to complete this topic HPV Vaccines Aged Out No longer eligi ble based on patient's age to complete this topic IPV Vaccines Aged Out No longer eligi ble based on patient's age to complete this topic Meningococcal B Vaccine Aged Out No l onger eligible based on patient's age to complete this topic Meningococcal Vaccine Aged Out No richmond hailee eligible based on patient's age to complete this topic Rotavirus Vaccines Aged Out No longer eligible based on patient's age to complete this topic Medical Devices Implanted Type Area Heavy Equipment Operator/Paver Device Identifier Shelf Expiration Date Model / Serial / Lot LeadMigel S 53, - [id number] - [id number] Implanted:Qty: 1 on 06/21/2023 by Pan Monsalve MD at [facility] [employer] [id number] 05/01/2025 [id number] / [id number] / LeadMigel S 45, - [id number] - [id number] Implanted:Qty: 1 on 06/21/2023 by Pan Monsalve MD at [facility] [employer] [id number] 05/01/2025 [id number] / [id number] / [id number] Migel Berger 45 [id number] Implanted:06/21 (Quantity not on file) Lead 377 176 MIGEL Berger 45 / [id number] / [id number] Migel Berger 53 [id number] Implanted:06/21 (Quantity not on file) Lead 377 177 MIGEL Berger 53 / [id number] / Pacer Steffanie Cooper,Grzegorz - [id number] - [id number] Implanted:Qty: 1 on 06/21/2023 by Pan Monsalve MD at [facility] Pacemaker [employer] [id number] 09/29/2024 [id number] / [id number] / [id number] Kenneth 8 Grzegorz [id number] Implanted:06/21 (Quantity not on file) Pacemaker [id number] [id number] 8 GRZEGORZ / [id number] / Procedures Procedure Name Priority Date/Time Associated Diagnosis Comments CARDIAC DEVICE CHECK CHECK - REMOTE Routine 01/15/2025 6:43 PM EDT Adjustment and management of cardiac pacemaker CARDIAC DEVICE CHECK - REMOTE - PACEMAKER Routine 12/14/2024 12:00 AM EDT CARDIAC DEVICE CHECK CHECK - REMOTE Routine 11/06/2024 10:54 AM EDT Adjustment and management of cardiac pacemaker from Last 3 Months Results * CARDIAC DEVICE CHECK - REMOTE - PACEMAKER (01/15/2025 6:43 PM EDT) Only the most recent of2 resultswithin the time period is included. us Demar Nation MD CV IMPLANTABLE CARDIAC DEVICE CA OCEDURES Final Result CPACS * Cardiac device check - Remote pacemaker (12/14/2024 12:00 AM EDT) Anatomical Region Laterality Modality Other 12/14/2024 us Pan Monsalve MD CV IMPLANTABLE CARDIAC DEVICE CA OCEDURES Final Result from Last 3 Months Insurance [employer] MEDICARE ADVANTAGE Advance Directives * Full Code (Latest Code Status on File) Date Activated Date Inactivated Comments 06/19/2023 10:52 AM 06/22/2023 5:12 PM Care Teams Basket Maker Relationship Specialty Start Date End Date Cr Killian MD PCP - General 06/19/23
--- OUTSIDE RECORDS SUMMARY | 2025-02-05 15:20 | XMS_ITS | Encounter Summary ---
Author Organization [facility] Address [id number] [address] [place] [address] Care Team Providers Care Softwood Faller Name Role Phone Gil Brar MD Primary Care Provider [phone] Reason for Visit * Reason Onset Date Comments Transition Of Care 06/26/2023 Encounter Details Date Type Department Care Team (Late st Contact Info) Description 06/26/2023 [facility] [address] [place] [address] Nela Phillips, CARLIE Transition Of Care Social History Tobacco Use Types Packs/Day Years [...] encounter Miscellaneous Notes * Telephone Encounter - Nela Phillips RN - 06/26/2023 8:27 AM EST Transition of Care Additional Questions/Concerns Requiring PCP Follow-Up: This documentation is being used for Transition of Care purposes: Yes Goal: Patient will demonstrate a safe transition from hospital to home. Diagnosis on Discharge: Symptomatic bradycardia History of mitral valve prolapse Perioral numbness Admission Diagnosis: Bradycardia [R00.1] Discharge Specialty: Cardiac Name of Discharging Facility: [facility] Date of Facility Discharge: 06/22/23 Date of Interactive Contact and Name of Service Or Work Dispatcher Chief: Spoke with Luma on 06/26/23 Medication Review [...] [place] Follow Up Appointments with Providers: Primary: Cr Gambino MD MARIA DE JESUS 07/05/23 @ 1:15 Specialty: [facility] on 07/04/2023 Specialty: Cardiology- @ [place] office 07/24/23 @ 1:40 Specialty: Review of Pending Lab/Diagnostic Tests and Plan for Completion: 06/21/23: Implantation of pacemaker (Biotronik) Patient went to [place] ER on 06/24/23 for CP/severe heart burn. [...] you have signs of a heart attack; room server CP, chest pressure, difficultybreathing, pain in arms, back or jaw, feeling faint or dizzy, and fast or irregular heartbeat. -CN contact information, Nela Phillips RN, can be reached at [phone] and will follow for a minimum of 30 days following hospitalization. Communication with Home Health Agencies and Other Services Utilized/Needed by the Patient: documented in this encounter Plan of Treatment Upcoming Encounters Date Type Department Care Team (Late st Contact Info) Description 02/10/2025 10:30 AM EDT Office Visit [facility] [address] [place] [address] Gil Brar MD [address] [place] [address] documented as of this encounter Visit Diagnoses Not on filedocumented in this encounter Additional Health Concerns Assessment Noted Time PHQ-9 Depression Total Score: 0 12/21/19 23 3:00 PM EDT A Body Mass Index follow-up plan has been documented for the patient 11/22/2018 2:06 PM EDT documented as of this encounter Care Teams Softwood Faller Relationship Specialty Start Date End Date Gil Brar MD [address] [place] [address] PCP - General Internal Medicine 10/30/24 documented as of this encounter
--- OUTSIDE RECORDS SUMMARY | 2025-02-05 15:20 | XMS_ITS | Encounter Summary ---
Author Organization [facility] Address [address], [address] [place] [address] Care Team Providers Care Lineman Name Role Phone Cr Killian MD Primary Care Provider [phone] Reason for Visit * Reason Comments Medication Refill Encounter Details Date Type Department Care Team (Late st Contact Info) Description 10/13/2019 Refill [facility] Ob[facility]s [facility] Gynecology [address] [place] [address] Servando Giraldo MD [address] [place] [address] Medication Refill Social History Tobacco Use Types Packs/Day Years Used Date Smoking Tobacco: Former Smokeless Tobacco: Never Comments:Smoked for about1 y ear Alcohol Use Standard Drinks/Week Comments Yes 0 (1 standard drink = 0.6 oz pur e alcohol) rarely- wine, beer Comments No Sex and Gender Information Value Date Recorded Sex Assigned at Not on file Legal Sex Female 11:55 AM EST Gender Identity Not on file Sexual Orientation Not on file documented as of this encounter Plan of Treatment Not on file documented as of this encounter Visit Diagnoses Not on filedocumented in this encounter Care Teams Lineman Relationship Specialty Start Date End Date Cr Killian MD [address] [place] [address] PCP - General Family Medicine 08/10/17 documented as of this encounter
--- OUTSIDE RECORDS SUMMARY | 2025-02-05 15:20 | XMS_ITS | Encounter Summary ---
Author Organization [facility] MEPS Real-Time Sys tem Address [id number] [address] [place] [address] Care Team Providers Care Electrotyper Name Role Phone Gil Brar MD Primary Care Provider [phone] Encounter Details Date Type Department Care Team (Late st Contact Info) Description 06/26/2023 Orders Only [facility] [address] [place] [address] External, Scanning Provider Social History [...] EDT Office Visit [facility] [address] [place] [address] Gil Brar MD [address] [place] [address] documented as of this encounter Procedures Procedure Name Priority Date/Time Associated Diagnosis Comments CT CHEST W CONT Routine 2023 XR CHEST 1 VW Routine 2023 documented in this encounter Results * CT chest with contrast (2023) Anatomical Region Laterality Modality Body, Lung, Chest, Body Covera N/A C omputed Tomography 2023 us Scanning Provider External IMG CT ORDERABLES Fin al Result * X-ray chest 1 view (2023) Anatomical Region Laterality Modality Body, Chest N/A Computed Radiogr aphy Narrative 2023 Ordering Provider: [facility] Dr. Chuck Dutton us Scanning Provider External IMG DIAGNOSTIC IMAGIN G ORDERABLES Final Result documented in this encounter Visit Diagnoses Not on filedocumented in this encounter Additional Health Concerns Assessment Noted Time PHQ-9 Depression Total Score: 0 12/21/19 23 3:00 PM EDT A Body Mass Index follow-up plan has been documented for the patient 11/22/2018 2:06 PM EDT documented as of this encounter Care Teams Electrotyper Relationship Specialty Start Date End Date Gil Brar MD [address] [place] [address] PCP - General Internal Medicine 10/30/24 documented as of this encounter
--- OUTSIDE RECORDS SUMMARY | 2025-02-05 15:20 | XMS_ITS | Encounter Summary ---
Author Organization [facility] Address [address], [address] [place] [address] Care Team Providers Care Shot Hole Driller Name Role Phone Cr Killian MD Primary Care Provider [phone] Encounter Details Date Type Department Care Team (Late st Contact Info) Description 09/17/2018 [facility] customs guard [address] [place] [address] Servando Giraldo MD [address] [place] [address] Social History Tobacco Use Types Packs/Day Years [...] on filedocumented in this encounter Care Teams Shot Hole Driller Relationship Specialty Start Date End Date Cr Killian MD [address] [place] [address] PCP - General Family Medicine 08/10/17 documented as of this encounter
--- OUTSIDE RECORDS SUMMARY | 2025-02-05 15:21 | XMS_ITS | Clinical Summary ---
Author Organization [facility] Address [address] [place] [address] Care Team Providers Care Medical Certification Specialist Name Role Phone Cr Contreras Primary Care Provider [phone] Allergies No known active allergies Medications ascorbic acid (VITAMIN C ORAL) Take by mouth once daily. Active vitamin B complex (B COMPLEX 1 ORAL) Take by mouth once daily. Active ferrous sulfate 325 mg (65 mg iron) tablet Take 325 mg by mouth as needed. Active glucosamine HCl (GLUCOSAMINE, BULK, MISC) Take by mouth once daily. Active MYRBETRIQ 50 mg Tb24 Take 50 mg by mouth once daily. 08/16/2018 Active Ca Carb-Mag Cmb 11-D3-Zn Sulf [id number] qk-snhr-kv-mg tab Take by mouth once daily. Active clopidogrel (PLAVIX) 75 mg tablet Take 75 mg by mouth every morning. 09/01/2023 Active aspirin, enteric coated (ASPIRIN, ENTERIC COATED) 81 mg EC tablet Take by mouth every 24 hours. 07/04/2023 Active escitalopram oxalate (LEXAPRO) 10 mg tablet Take 20 mg by mouth every morning. 09/24/2023 Active Family History Medical History Relation Comments Stroke Father atrial fibrillation Father valvular heart disease Father Ischemic Heart Disease Mother s/p PCI Stroke Mother pacemaker Mother Relation Status Comments Brother 1 Alive Brother 2 Alive Father (Age 82) Mother Alive Sister 1 Alive Sister 2 Alive Social History Tobacco Use Types Packs/Day Years Used Date Smoking Tobacco: Former Cigarettes 1 1 0 07/23/1975 - 07/23/1976 Smokeless Tobacco: Never Tobacco Cessation:Counseling Given: Not Answered Alcohol Use Standard Drinks/Week Comments Yes 0 (1 standard drink = 0.6 oz pur e alcohol) occasional Area Deprivation Index Answer Date Jose Elias rded National Score (1-100), lowe r number is lower risk 80 09/24/2023 State Score (1-10), lower number is lower risk 7 09/24/2023 Data from: https://www.neighborhoodatlas.medicine.[facility].edu/. Last address used for calculation [address] 09/24/2023 Comments No Sex and Gender Information Value Date Recorded Sex Assigned at Not on file Legal Sex Female 1:12 PM EST Gender Identity Not on file Sexual Orientation Not on file Last Filed Vital Signs Vital Sign Reading Time Taken Comments Blood Pressure 122/65 10/05/2023 9:20 AM EDT Pulse 83 10/05/2023 9:20 AM EDT Temperature 36.1 C (96.9 F) 10/05/2023 9:20 AM EDT Respiratory Rate 14 10/05/2023 9:20 AM EDT Oxygen Saturation 99% 10/05/2023 9:20 AM EDT Inhaled Oxygen Concentration - - Weight 72.6 kg (160 lb) 10/05/2023 9:20 AM EDT Height 166 cm (5' 5.35 ) 10/05/2023 9:20 AM EDT Body Mass Index 26.34 10/05/2023 9:20 AM EDT Plan of Treatment Health Maintenance Due Date Last Done Comments Anxiety Screening 1972 Depression Screening 1972 Hepatitis C Screening 1972 CT Colonography 1999 Cologuard (FIT-DNA) 1999 Colonoscopy 1999 Colorectal Cancer Screening 1999 Fecal Occult Blood 1999 Sigmoidoscopy 1999 Mammogram Screening 08/01/2018 08/01/2017, 5 Bone Density Screening 2019 Lipid Screening 07/17/2022 07/17/2017 Advance Directive Discussion 07/02/2024 Medicare Advantage Annual We llness Visit 07/02/2024 Influenza Vaccine (#1) 2025 3, 03/05/2022, 04/12/2021, Additional history exists Diabetes Screening 06/21/2026 06/21/2023, 1 08/21/2022, 06/19/2023, Additional history exists DTaP,Tdap,Td Vaccine (3 - Td or Tdap) 03/31/2029 03/31/2019, 09/12/2011 Shingrix Vaccine Completed 03/29/2020, 07/20/2019 Pneumococcal Vaccine: 50+ Completed 2021, 03/05/2022, 03/31/2019, Additional history exists RSV Vaccine Completed 06/18/2023 Insurance [facility] MEDICARE ADVANTAGE PPO Care Teams Medical Certification Specialist Relationship Specialty Start Date End Date Cr Contreras [address] [place] [address] PCP - General Family Medicine 08/23/18
--- OUTSIDE RECORDS SUMMARY | 2025-02-05 15:21 | XMS_ITS | Encounter Summary ---
Author Organization [facility] Address [address] [facility] [place] [address] Care Team Providers Care Injection Molding Technician Name Role Phone Cr Killian MD Primary Care Provider [phone] Encounter Details Date Type Department Care Team (Late st Contact Info) Description 12/14/2024 Orders Only [facility] [address] [place] [address] Pan Monsalve MD [address] [place] [address] Social History Tobacco Use Types Packs/Day Years Used Date Smoking Tobacco: Never Smokeless Tobacco: Never Alcohol Use Standard Drinks/Week Comments Not Currently [...] and heating? Not hard at all 06/19/2023 DC Safety & Environment Answer Date Rec orded [...] place to sleep or slept in a [place] facility (including now)? No 06/19/2023 Hunger Vital Sign [...] Heterosexual or Straight 06/01 2:21 PM EST documented as of this encounter Functional Status * Are you deaf or do you have serious difficulty hearing? Answer Date of Assessment Author No 06/22/2023 1:49 PM Maria Fernanda Craven RN * Are you blind or do you have serious difficulty seeing, even when wearing glasses? Answer Date of Assessment Author No 06/22/2023 1:49 PM Maria Fernanda Craven RN * Do you have serious difficulty walking or climbing stairs? Answer Date of Assessment Author No 06/22/2023 1:49 PM Maria Fernanda Craven RN * Do you have serious difficulty dressing or bathing? Answer Date of Assessment Author No 06/22/2023 1:49 PM Maria Fernanda Craven, CARLIE * Because of a physical, mental, or emotional condition, do you have serious difficulty doing errandsalone such as visiting the doctor? Answer Date of Assessment Author No 06/22/2023 1:49 PM Maria Fernanda Craven, RN documented as of this encounter Mental Status * Because of a physical, mental, or emotional condition, do you have serious difficulty concentrating, remembering, or making decisions? (5 years old or older) Answer Entry Date Author No 06/22/2023 1:49 PM Maria Fernanda Craven, RN documented in this encounter Plan of Treatment Upcoming Encounters Date Type Department Care Team (Late st Contact Info) Description 02/10/2025 10:45 AM EDT Ancillary Procedure [facility] [address] [place] [address] 03/09/2025 11:20 AM EDT Office Visit [facility] [address] [place] [address] Angle Treadwell MD [address] [place] [address] documented as of this encounter Procedures Procedure Name Priority Date/Time Associated Diagnosis Comments CARDIAC DEVICE CHECK - REMOTE - PACEMAKER Routine 12/14/2024 12:00 AM EDT documented in this encounter Results * Cardiac device check - Remote pacemaker (12/14/2024 12:00 AM EDT) Anatomical Region Laterality Modality Other 12/14/2024 Pan Monsalve MD CV IMPLANTABLE CARDIAC DEVICE [place] OCEDURES Final Result documented in this encounter Visit Diagnoses Not on filedocumented in this encounter Care Teams Injection Molding Technician Relationship Specialty Start Date End Date Cr Killian MD PCP - General 06/19/23 documented as of this encounter
--- OUTSIDE RECORDS SUMMARY | 2025-02-05 15:21 | XMS_ITS | Encounter Summary ---
Author Organization [facility] [employer] Sys tem Address [id number] [address] [place] [address] Care Team Providers Care Business Operations Director Name Role Phone Gil Brar MD Primary Care Provider [phone] Encounter Details Date Type Department Care Team (Late st Contact Info) Description 06/26/2024 Orders Only [facility] [address] [place] [address] External, Scanning Provider Social History [...] EDT Office Visit [facility] [address] [place] [address] Gil Brar MD [address] [place] [id number] documented as of this encounter Visit Diagnoses Not on filedocumented in this encounter Additional Health Concerns Assessment Noted Time PHQ-9 Depression Total Score: 3 12/25/19 10:00 AM EDT A Body Mass Index follow-up plan has been documented for the patient 11/22/2018 2:06 PM EDT documented as of this encounter Care Teams Business Operations Director Relationship Specialty Start Date End Date Gil Brar MD [address] [place] [address] PCP - General Internal Medicine 10/30/24 documented as of this encounter
--- OUTSIDE RECORDS SUMMARY | 2025-02-05 15:21 | XMS_ITS | Clinical Summary ---
Author Organization Capical tem Address [id number] [address] [place] [address] Care Team Providers Care Hyperion Administrator Name Role Phone Gil Brar MD Primary Care Provider [phone] Allergies No known active allergies Medications MULTIVITAMIN ORAL Take 1 capsule by mouth in the morning. Hair, Skin, and Nails. Active vit A/vit C/vit E/zinc/copper (PRESERVISION AREDS ORAL) Take 1 capsule by mouth in the morning. Active cholecalcifer ol, vitamin D3, (VITAMIN D3 ORAL) Take 2 capsules by mouth in the morning. Active CALCIUM-MAGNE SIUM-ZINC ORAL Take 1 capsule by mouth in the evening. Active docosahexaeno ic acid/epa (FISH OIL ORAL) Take 1 capsule by mouth in the morning. Osteo Bi-flex. Active MYRBETRIQ 50 mg tablet extended release 24 hr Take 1 tablet (50 mg total) by mouth in the morning. 06/04/20 23 Active aspirin 81 mg Take 1 tablet (81 mg total) by mouth in the morning. 08/02/19 24 Active escitalopram (LEXAPRO) 10 mg tablet Take 2 tablets (20 mg total) by mouth in the morning. 180 tablet 3 08/07/19 24 Active ferrous sulfate (IRON ORAL) Take by mouth. Activ e MAGNESIUM ORAL Take by mouth. Activ e vitamin B complex (B COMPLEX ORAL) Take by mouth. A ctive sod sulf-pot chloride-mag sulf 1.479-0.188- 0.225 gram tabletIndicat ions:Rectal bleeding Please see instructional sheet given by physicians office. 24 tablet 12/31/19 24 Active lisinopriL (PRINIVIL,ZES TRIL) 5 mg tablet Take 1 tablet (5 mg total) by mouth. 10/14/19 25 026 Active atorvastatin (LIPITOR) 20 mg tablet Take 1 tablet (20 mg total) by mouth in the morning. 06/13/20 24 026 Active cetirizine (ZyrTEC) 10 mg tablet Take 1 tablet (10 mg total) by mouth in the morning. 30 tablet 2 01/15/20 25 Active fluticasone propionate (FLONASE) 50 mcg/actuation nasal spray Administer 1 spray into each nostril in the morning. 15.8 mL 2 01/15/20 25 Active pantoprazole (PROTONIX) 40 mg EC tablet Take 1 tablet (40 mg total) by mouth in the morning. 30 tablet 1 12/18/19 25 025 Discontinued Active Problems Patient Care Coordination No te Formatting of this note migh t be different from the original. ECHO 48% 05/19 Problem Noted Date Diagnosed Date Vertigo, benign paroxysmal 05/05/2019 SOB (shortness of breath) 06/14/2018 LBBB (left bundle branch block) 06/14/2018 Ruth-Walker grade 1 rectocele 01/22/2018 Rectocele, female 09/07/2017 MVP (mitral valve prolapse) 07/16/2017 Primary osteoarthritis involving multiple joints 07/16/2017 Urinary incontinence 12/25/2016 Overview (12/25/2016): ==== 12/25/2016 ==== primary urgent urge incontinence after anterior posterior pelvic separation from trauma. Status post surgery October 24, 2016. Worsening symptomatology. Plan: Renal bladder ultrasound cystoscopy. Evaluate for any potential mass effect. If no mass effect on urodynamic study. Resolved Problems Problem Noted Date Diagnosed Date Resolved Date Mood disorder 12/20/2022 12/20/2022 Encounters Date Type Department Care Team Description 01/14/2025 9:45 AM EDT [facility] [address] [place] [address] Natalia Wolf APRN-CNP Chronic cough (Primary Dx); Weight loss, non-intentional 01/14/2025 Travel 12/17/2024 1:30 PM EDT Office Visit [facility] [address] [place] [address] Natalia Wolf APRN-CNP Chronic cough (Primary Dx) 12/17/2024 Travel from Last 3 Months Immunizations Immunization Administration Dates Next Due COVID-19, mRNA, LNP-S, PF, 1 00mcg/0.5mL Dose 09/29/2020,09/03/2020 Covid-19, Mrna, Lnp-s, Bival ent, Pf, 50mcg/0.5ml or 25mcg/0.25ml 06/20/2022 Influenza (IM) Preservative Free 06/19/2015 Influenza Vaccine, Quadrivalent, Adjuvanted 05/02,04/12/2021,03/29/2020 Influenza, High-dose, Quadrivalent 03/05/2022 Influenza, Injectable, quadrivalent (PF) 019,04/22/2018,06/11/2017 Influenza, Unspecified 04/12/2021 Pneumococcal Conjugate 13-Valent 03/31/2019 Pneumococcal Polysaccharide 03/05/2022, 0 Pneumococcal, Unspecified 03/05/2022 RSV, recombinant, protein herron bunit RSVpreF, adjuvant reconstituted, 0.5 mL, PF 06/18/2023 Tdap 03/31/2019,09/12/2011 Zoster Vaccine Recombinant 03/29/2020,07/20/2019 Family History Medical History Relation Name Comments Colon cancer Father Heart disease Father Stomach cancer Father Stroke Father Heart failure Mother pacemaker Hyperlipidemia Mother Hypertension Mother Stroke Mother Relation Name Status Comments Father Mother Social History Tobacco Use Types Packs/Day Years Used Date Smoking Tobacco: Former Cigarettes Smokeless Tobacco: Never Tobacco Cessation:Counseling Given: Not Answered Comments:Casual smoker, less than a pack a week Alcohol Use Standard Drinks/Week Comments Yes 0 (1 standard drink = 0.6 oz pur e alcohol) occasional AUDIT-C Answer Date Recorded Frequency of Alcohol Consumption 2-3 times a wee k 05/25/2020 Average Number of Drinks 1 or 2 020 Frequency of Binge Drinking Never 05/03 PHQ-2 Answer Date Recorded Total Score 0 01/14/2025 Childcare Answer Date Recorded Childcare Unknown 12/11/2018 Employment Answer Date Recorded Employment Unknown 12/11/2018 Hunger Screening Answer Date Recorded Within the past 12 months we worried whether our food would run out before we got money to buy more. Never True 01/14/2025 Within the past 12 months th e food we bought just didn't last and we didn't have money to get more. Never True 01/14/2025 Purpose - Life Answer Date Recorded Purpose and direction in life Unknown Comments No Sex and Gender Information Value Date Recorded Sex Assigned at Not on file Legal Sex Female 11:27 AM EDT Gender Identity Not on file Sexual Orientation Not on file Last Filed Vital Signs Vital Sign Reading Time Taken Comments Blood Pressure 120/62 01/14/2025 9:38 AM EDT Pulse 83 01/14/2025 9:38 AM EDT Temperature 36.6 C (97.8 F) 12/25/2023 10:58 AM EDT Respiratory Rate 16 01/14/2025 9:38 AM EDT Oxygen Saturation 98% 01/14/2025 9:38 AM EDT Inhaled Oxygen Concentration - - Weight 67.6 kg (149 lb) 01/14/2025 9:38 AM EDT Height 166.4 cm (5' 5.5 ) 12/25/2023 10:58 AM ED T Body Mass Index 24.42 12/25/2023 10:58 AM EDT Plan of Treatment Upcoming Encounters Date Type Department Care Team (Late st Contact Info) Description 02/10/2025 10:30 AM EDT Office Visit [facility] [address] [place] [address] [place] [address] [place] [address] Health Maintenance Due Date Last Done Comments COVID-19 Vaccine (2023-08 5 season) 2024 05/11/2024, 05/16/2023, 06/20/2022, Additional history exists Fall Risk Screening 12/24/2024 12/25/2023 Medicare Annual Wellness Visit 12/24/2024 0 12/25/2023, 12/20/2022, 06/29/2021 Mammogram 01/08/2025 01/09/2024, 07/04, 08/18/2014 Influenza Vaccine 03/02/2025 05/11/2024, , 03/05/2022, Additional history exists Adult BMI Screening 01/14/2026 01/14/2025 Depression Screening 01/14/2026 01/14/2025 Tobacco Screening 01/14/2026 01/14/2025 Colonoscopy 02/19/2029 02/20/2024 DTaP,Tdap and Td Vaccines (3 - Td or Tdap) 03/31/2029 03/31/2019, 09/12/2011 Zoster (Shingles) Vaccine Completed 03/29/2020, Medical Devices Implanted Type Area Conveyor Belt Installer Device Identifier Shelf Expiration Date Model / Serial / Lot Lead Pcng 45cm Ecrdl Promri Solia S Bp Actfx Strd Implant Lead [employer] [id number] / [id number] / [id number] Description:SOLIA S 45 Lead Pcng 45cm Ecrdl Promri Solia S Bp Actfx Strd Implant Lead [employer] [id number] / [id number] / [id number] Description:[place] S 53 Pacemaker-06/01 Implanted:06/01 (Quantity not on file) Pacemaker [employer] EDORA Omid LANTIGUA / [id number] / [id number] Description:EDBHAVANI 8 GRZEGORZ Procedures Procedure Name Priority Date/Time Associated Diagnosis Comments COLONOSCOPY Routine 02/20/2024 Rectal bleeding HM MAMMOGRAPHY Routine 01/09/2024 from Last 3 Months or Most Recently Relevant to Health Maintenance Results * Colonoscopy (02/20/2024) us Ilana Packer SENIOR SOURCING MANAGER-CENTRIFUGAL SCREEN TENDER GI PROCEDURE ORDERABL ES Final Result MANUALLY TRANSCRIBED RESULTS * HM MAMMOGRAPHY (01/09/2024) Anatomical Region Laterality Modality Other 01/09/2024 us Scanning Provider External HEALTH MAINTENANCE Fi nal Result from Last 3 Months or Most Recently Relevant to Health Maintenance Insurance [facility] MEDICARE Care Teams Hyperion Administrator Relationship Specialty Start Date End Date Gil Brar MD [address] [place] [address] PCP - General Internal Medicine 10/30/24
--- OUTSIDE RECORDS SUMMARY | 2025-02-05 15:21 | XMS_ITS | Encounter Summary ---
Author Organization [facility] Address [id number] [address] [place] [address] Care Team Providers Care Wind Commissioning Technician Name Role Phone Gil Brar MD Primary Care Provider [phone] Encounter Details Date Type Department Care Team (Late st Contact Info) Description 11/03/2024 Orders Only [facility] [address] [place] [address] Cadence Weller LPN Weight loss, non-intentional Social History Tobacco Use Types Packs/Day Years [...] PHQ-2 Answer Date Recorded Total Score 0 10/30/2024 Childcare Answer Date Recorded Childcare Unknown 12/11/2018 Employment Answer Date Recorded Employment Unknown 12/11/2018 Hunger Screening Answer Date Recorded Within the past 12 months we worried whether our food would run out before we got money to buy more. Never True 10/30/2024 Within the past 12 months th e food we bought just didn't last and we didn't have money to get more. Never True 10/30/2024 Purpose - Life Answer Date Recorded Purpose [...] Office Visit [facility] [address] [place] [address] Gil Brar MD [address] [place] [address] documented as of this encounter Procedures Procedure Name Priority Date/Time Associated Diagnosis Comments CBC WITH AUTO DIFFERENTIAL Routine 10/30/2024 Weight loss, non-intentional documented in this encounter Results * CBC auto differential (10/30/2024) Blood Venous blood / Unknown 10/30/2024 us Gil Brar MD LAB BLOOD ORDERABLES Final Res ult MANUALLY TRANSCRIBED RESULTS documented in this encounter Visit Diagnoses Diagnosis Weight loss, non-intentional Loss of weight documented in this encounter Additional Health Concerns Assessment Noted Time PHQ-9 Depression Total Score: 0 10/31/19 25 2:39 PM EDT A Body Mass Index follow-up plan has been documented for the patient 11/22/2018 2:06 PM EDT documented as of this encounter Care Teams Wind Commissioning Technician Relationship Specialty Start Date End Date Gil Brar MD [address] [place] [address] PCP - General Internal Medicine 10/30/24 documented as of this encounter
--- OUTSIDE RECORDS SUMMARY | 2025-02-05 15:21 | XMS_ITS | Encounter Summary ---
Author Organization [facility] [facility] [employer] Address [id number] [address] [place] [address] Care Team Providers Care Shellfish Manager Name Role Phone Gil Brar MD Primary Care Provider [phone] Encounter Details Date Type Department Care Team (Late st Contact Info) Description 08/29/2024 Orders Only [facility] [address] [place] [address] External, Scanning Provider Social History [...] Office Visit [facility] [address] [place] [id number] Gil Brar MD [address] [place] [id number] documented as of this encounter Procedures Procedure Name Priority Date/Time Associated Diagnosis Comments ECHO DOPPLER Routine 08/25/2024 documented in this encounter Results * Echo Doppler (08/25/2024) Anatomical Region Laterality Modality Chest N/A Ultrasound 08/25/2024 us Scanning Provider External CV ECHO ORDERABLES Fi nal Result documented in this encounter Visit Diagnoses Not on filedocumented in this encounter Additional Health Concerns Assessment Noted Time PHQ-9 Depression Total Score: 3 12/25/19 24 10:00 AM EDT A Body Mass Index follow-up plan has been documented for the patient 11/22/2018 2:06 PM EDT documented as of this encounter Care Teams Shellfish Manager Relationship Specialty Start Date End Date Gil Brar MD [address] [place] [id number] PCP - General Internal Medicine 10/30/24 documented as of this encounter
--- OUTSIDE RECORDS SUMMARY | 2025-02-05 15:21 | XMS_ITS | Clinical Summary ---
Author Organization [facility] Address [address], [address] [place] [address] Care Team Providers Care Taxation Economist Name Role Phone Cr Killian MD Primary Care Provider [phone] Allergies No known active allergies Medications propranolol (INDERAL) 80 MG tablet 7 Active Multiple Vitamins-Mineral s (THERAPEUTIC MULTIVITAMIN-MIN ERALS) tablet Take 1 tablet by mouth daily Active Multiple Minerals-Vitamin s (CALCIUM-MAGNESI UM-ZINC-D3) TABS Take 1 tablet by mouth daily Active Ascorbic Acid (OCTAVIO-C PO) Take 1 tablet by mouth daily Active ferrous sulfate 325 (65 Fe) MG tablet Take 325 mg by mouth daily (with breakfast) Active NONFORMULARY Turmeric-sreedhar supplement Active GLUCOSAMINE CHONDROITIN COMPLX PO Take 1 tablet by mouth daily Active B-COMPLEX-C PO Take 1 tablet by mouth daily Active acetaminophen (APAP EXTRA STRENGTH) 500 MG tablet Take 2 tablets by mouth every 6 hours as needed for Pain 60 tablet 1 8 Active estradiol (ESTRACE VAGINAL) 0.1 MG/GM vaginal cream Place 1 g vaginally daily 1 Tube 3 8 Active mirabegron (MYRBETRIQ) 50 MG TB24 take 1 tablet by mouth once daily 90 tablet 3 5 Active Active Problems Problem Noted Date Diagnosed Date Stress incontinence 10/02/2017 Oxford-Walker grade 2 cystocele 09/07/2017 Rectocele, female 09/07/2017 History of pelvic fracture 08/10/2017 Mixed incontinence urge and stress 08/10/2017 Intrinsic sphincter deficiency (ISD) 08/10/2017 Urge incontinence of urine 08/10/2017 MVP (mitral valve prolapse) 07/16/2017 Primary osteoarthritis involving multiple joints 07/16/2017 Oxford-Walker grade 1 rectocele Urinary, incontinence, stress female History of open reduction an d internal fixation (ORIF) procedure Immunizations Immunization Administration Dates Next Due Influenza Vaccine, unspecified formulation 06/11 Influenza Virus Vaccine 04/22/2018 Family History Medical History Relation Name Comments No Known Problems Daughter x3 Heart Disease Father Other Father copd Stroke Father Stroke Mother No Known Problems Son Relation Name Status Comments Brother x2 Alive Daughter x3 Alive Father Mother Alive Sister x2 Alive Son Alive Social History Tobacco Use Types Packs/Day [...] Sign Reading Time Taken Comments Blood Pressure 114/60 04/08/2018 10:33 AM EDT Pulse 84 04/08/2018 10:33 AM EDT Temperature 36.7 C (98.1 F) 09/27/2017 11:45 AM EDT Respiratory Rate 16 09/27/2017 12:24 PM EDT Oxygen Saturation 98% 09/27/2017 12:24 PM EDT Inhaled Oxygen Concentration - - Weight 73 kg (161 lb) 04/08/2018 10:33 AM EDT Height 165.1 cm (5' 5 ) 04/08/2018 10:33 AM EDT Body Mass Index 26.79 04/08/2018 10:33 AM EDT Plan of Treatment Not on file Medical Devices Implanted Type Area Dean Of Graduate Studies Device Identifier Shelf Expiration Date Model / Serial / Lot Impl Sling Transvaginal Mid Ureth Adv Fit Sys Implanted:Qty: 1 on 09/27/2017 by Servando Giraldo MD at [facility] Urologic al/Environmental Health Safety Manager [employer]: INTERVENTIONAL CARDIO-PMM 05/03/2020 [id number] / / [id number] Explanted Type Area Dean Of Graduate Studies Device Identifier Shelf Expiration Date Model / Serial / Lot Impl Sling Transvaginal Mid Ureth Adv Fit Sys Implanted:Qty: 1 Explanted:Qty: 1 on 09/27/2017 at [facility] Urologic al/Environmental Health Safety Manager [employer] INTERVENTIONAL [employer]ARD[employer]-PMM 08/15/2020 [id number] / [id number] Insurance [facility] Advance Directives * Full Code (Latest Code Status on File) Date Activated Date Inactivated Comments 09/27/2017 10:26 AM 09/27/2017 3:01 PM Care Teams Taxation Economist Relationship Specialty Start Date End Date Cr Killian MD [address] [place], [place] [id number] PCP - General Family Medicine 08/10/17
--- OUTSIDE RECORDS SUMMARY | 2025-02-05 15:21 | XMS_ITS | Encounter Summary ---
Author Organization [facility] Address [address], [address] [place] [address] Care Team Providers Care Leasing Director Name Role Phone Cr Killian MD Primary Care Provider [phone] Reason for Referral * Imaging (Routine) - Closed Specialty Diagnoses / Procedures Referred By Farhana muñoz Referred To Contact Radiology Diagnoses Encounter for screening mammogram for malignant neoplasm of breast Procedures ERICKA DIGITAL SCREEN W OR WO CAD BILATERAL Cr Killian MD [address] [place] [address] Phone: tel: fax: Referral ID Status Reason Start Date Expiration Date Visits Re quested Visits Authorized [id number] Closed 01/11/2022 01/11/2023 1 1 Encounter Details Date Type Department Care Team (Latest Contact Info) Description 01/11/2022 Transcribe Orders [facility] [address] [place] [id number] Cr Killian MD [address] [place] [address] Encounter for screening mammogram for malignant neoplasm of breast (Primary Dx) Social History Tobacco Use Types Packs/Day Years [...] as of this encounter Plan of Treatment Scheduled Orders Name Type Priority Associated Diagnoses Orde r Schedule ERICKA DIGITAL SCREEN W OR WO CAD BILATERAL Imaging Routine Encounter for screening mammogram for malignant neoplasm of breast Expected: 01/11/2022, Expires: 03/14/2023 documented as of this encounter Visit Diagnoses Diagnosis Encounter for screening mammogram for malignant neoplasm of breast- Primary Other screening mammogram documented in this encounter Care Teams Leasing Director Relationship Specialty Start Date End Date Cr Killian MD [address] [place] [address] PCP - General Family Medicine 08/10/17 documented as of this encounter
--- NOTE | 2025-02-05 15:30 | XR_ITS ---
The [address] [address] Patient Name: GRISELDA DAVEY MRN: [id number] date: 1955 Sex: F Assigned Patient Location: ER Current Patient Location: ER Accession/Order Number: [id number] Exam Date: 02/05/2025 16:24 Report Date: 02/05/2025 16:32 At the request of: MEGAN KAN Procedure: XR ankle LT min 3V XR foot LT min 3V, XR ankle LT min 3V 02/05/2025 4:18 PM SIGNS AND SYMPTOMS: ^foot injury with lateral bruising \S.br\ PROTOCOL: Frontal, lateral, and oblique radiographs of the left foot and left ankle COMPARISON: None FINDINGS: Left foot: The bones are in anatomic alignment. The joint spaces are preserved. Fracture fragments are from the anterior calcaneal process at the calcaneocuboid joint with accompanying soft tissue swelling. No significant soft tissue swelling. Left ankle: Fracture fragments are from the anterior calcaneal process at the calcaneocuboid joint with accompanying soft tissue swelling. The ankle mortise is preserved. The medial and lateral malleolus are intact. XR/XR ankle LT min 3V IMPRESSION: Left foot: Fracture fragments are from the anterior calcaneal process at the calcaneocuboid joint with accompanying soft tissue swelling. Left ankle: Fracture fragments are from the anterior calcaneal process at the calcaneocuboid joint with accompanying soft tissue swelling. Impression dictated by: Alex Francisco M.D. 02/05/2025 4:32 PM Dictation Location: [place] [address] Electronically authenticated by: [id number] Y Date: 02/05/2025 16:32
--- NOTE | 2025-02-05 15:30 | XR_ITS ---
The [address] [address] Patient Name: GRISELDA DAVEY MRN: [id number] date: 1955 Sex: F Assigned Patient Location: ER Current Patient Location: ER Accession/Order Number: [id number] Exam Date: 02/05/2025 16:33 Report Date: 02/05/2025 16:34 At the request of: MEGAN KAN Procedure: XR hand RT min 3V XR hand RT min 3V 02/05/2025 4:18 PM SIGNS AND SYMPTOMS: ^hand injury post fall PROTOCOL: Frontal, lateral, and oblique radiographs of the right hand COMPARISON: None FINDINGS: The bones are in anatomic alignment. There is narrowing of the interphalangeal joints and first metacarpophalangeal joint. There is no evidence of acute displaced fracture. XR/XR hand RT min 3V IMPRESSION: No fracture or dislocation. Impression dictated by: Alex Francisco M.D. 02/05/2025 4:34 PM Dictation Location: [place] [address] Electronically authenticated by: [id number] Y Date: 02/05/2025 16:34
--- NOTE | 2025-02-05 15:30 | CT_ITS ---
The [address] [address] Patient Name: GRISELDA DAVEY MRN: [id number] date: 1955 Sex: F Assigned Patient Location: ER Current Patient Location: ER Accession/Order Number: [id number] Exam Date: 02/05/2025 16:18 Report Date: 02/05/2025 16:24 At the request of: MEGAN KAN Procedure: CT head/brain wo con CT head/brain wo con 02/05/2025 4:00 PM SIGNS AND SYMPTOMS: Fall, head injury TECHNIQUE:Multi-detector CT axial slices of the brain were obtained without IV contrast. CT was performed with one or more of the following dose reduction techniques: Automated exposure control, adjustment of the mA and/or kV according to patient size, or use of iterative reconstruction technique. COMPARISON: None. FINDINGS: There is no shift of the midline structures, acute intracranial bleeding, mass effects, or evidence of acute ischemia. There is a remote lacunar infarct in the left caudate nucleus. The ventricular system is normal in size. The brainstem and the cerebellum are unremarkable. The visualized intraorbital contents, the visualized paranasal sinuses, and the infratemporal soft tissues show no acute abnormality. The osseous structures in the skull base and the calvarium show no abnormality. CT/CT head/brain wo con IMPRESSION: No acute intracranial pathology. Impression dictated by: Alex Francisco M.D. 02/05/2025 4:24 PM Dictation Location: [place] [address] Electronically authenticated by: [id number] Y Date: 02/05/2025 16:24
--- NOTE | 2025-02-05 15:30 | XR_ITS ---
The [address] [address] Patient Name: GRISELDA DAVEY MRN: [id number] date: 1955 Sex: F Assigned Patient Location: ER Current Patient Location: ER Accession/Order Number: [id number] Exam Date: 02/05/2025 16:24 Report Date: 02/05/2025 16:32 At the request of: MEGAN KAN Procedure: XR ankle LT min 3V XR foot LT min 3V, XR ankle LT min 3V 02/05/2025 4:18 PM SIGNS AND SYMPTOMS: ^foot injury with lateral bruising \S.br\ PROTOCOL: Frontal, lateral, and oblique radiographs of the left foot and left ankle COMPARISON: None FINDINGS: Left foot: The bones are in anatomic alignment. The joint spaces are preserved. Fracture fragments are from the anterior calcaneal process at the calcaneocuboid joint with accompanying soft tissue swelling. No significant soft tissue swelling. Left ankle: Fracture fragments are from the anterior calcaneal process at the calcaneocuboid joint with accompanying soft tissue swelling. The ankle mortise is preserved. The medial and lateral malleolus are intact. XR/XR foot LT min 3V IMPRESSION: Left foot: Fracture fragments are from the anterior calcaneal process at the calcaneocuboid joint with accompanying soft tissue swelling. Left ankle: Fracture fragments are from the anterior calcaneal process at the calcaneocuboid joint with accompanying soft tissue swelling. Impression dictated by: Alex Francisco M.D. 02/05/2025 4:32 PM Dictation Location: [place] [address] Electronically authenticated by: [id number] Y Date: 02/05/2025 16:32
--- NOTE | 2025-02-05 15:30 | ED.GENADUL1 ---
HPI HPI - General Adult General Chief complaint: Extremity Injury, Lower Stated complaint: FALL Time Seen by Provider: 02/05/25 15:08 Source: patient Mode of arrival: Wheelchair Limitations: no limitations History of Present Illness HPI narrative: Patient presents post fall states she was walking down steps missed second to last step fell hit her right side/hand and left side of her head. Patient notes discoloration bruising and pain to left ankle. Patient states she felt as if she may pass, out but denies loss of consciousness. she also sts difficulty talking but states symptoms have resolved. Slurred speech. Patient denies any neck pain, chest pain, back pain, abdominal pain, left upper extremity or right lower extremity pain denies any urinary bleeding, rectal bleeding, nausea, vomiting, blurred vision. Does take aspirin daily but has missed her last 3 days. She does bruise easily by comparison in the past patient remains ambulatory with assistance and conversant in the emergency moving all extremities. Symptoms moderate in severity. Onset (ago): hour(s) Location: Reports head, upper extremity (rt) and lower extremity (lt) Associated symptoms: Denies confusion, chest pain, cough, diaphoresis, fever/chills, headaches, loss of appetite, malaise, nausea/vomiting or syncope Related Data Home Medications ?Medication ?Instructions ?Recorded ?Confirmed mirabegron 50 mg tablet,extended 50 mg PO Q24H 06/18/23 02/20/24 release 24 hr (Myrbetriq) aspirin 81 mg tablet,delayed 81 mg PO DAILY 01/24/24 02/20/24 release (Adult Low Dose Aspirin) calcium 333 mg-vit D3 200 1 tab PO DAILY 01/24/24 02/20/24 unit-magnesium 133 mg-zinc 5 mg tablet escitalopram oxalate 20 mg tablet 20 mg PO DAILY 01/24/24 02/20/24 (Lexapro) ferrous sulfate PO 01/24/24 magnesium PO 01/24/24 multivitamin 1 tab PO DAILY 01/24/24 02/20/24 vitamin A-vitamin C-vitamin E 1 tab PO DAILY 01/24/24 02/20/24 vitamin B complex 1 cap PO DAILY 01/24/24 02/20/24 Previous Rx's ?Medication ?Instructions ?Recorded hydrocodone 5 mg-acetaminophen 325 1 tab PO Q8H PRN pain #14 tabs 02/05/25 mg tablet Allergies Allergy/AdvReac Type Severity Reaction Status Date / Time No Known Drug Allergies Allergy Verified 06/24/23 10:10 Opioid HPI Opioid Management Most Recent Opioid Data: Last Pain Scale 4 06/24/23, 11:06 Last MAR Pain Assessment Today, 17:02 Review of Systems ROS Status of ROS 10 or more systems reviewed and unremarkable except as noted in history and below Constitutional Denies: fever or chills Eyes Denies: change in vision or blurry vision Ears, nose, mouth, and throat Denies: throat pain, neck pain, ear pain, ear discharge, nasal discharge, nasal congestion or nose bleeds Cardiovascular Denies: chest pain Respiratory Denies: shortness of breath or cough Gastrointestinal Denies: abdominal pain, nausea, vomiting or blood in stool Genitourinary Denies: painful urination or blood in urine Musculoskeletal Reports: extremity pain; Denies: back pain or neck pain Neurological Denies: headache, weakness in extremities, dizziness or confusion Hematologic/Lymphatic Reports: easy bruising PFSH PFS Medical History (Updated 02/05/25 @ 17:34 by LUCIUS KNOX II) Chest pain ?R07.9 - Chest pain, unspecified (ICD-10) Atrioventricular block ?I44.30 - Unspecified atrioventricular block (ICD-10) Arm fracture ?S42.309A - Unspecified fracture of shaft of humerus, unspecified arm, initial encounter for closed fracture (ICD-10) Pelvic fracture ?S32.9XXA - Fracture of unspecified parts of lumbosacral spine and pelvis, initial encounter for closed fracture (ICD-10) Fracture of wrist ?S62.109A - Fracture of unspecified carpal bone, unspecified wrist, initial encounter for closed fracture (ICD-10) Pacemaker ?Z95.0 - Presence of cardiac pacemaker (ICD-10) Cervical cancer ?C53.9 - Malignant neoplasm of cervix uteri, unspecified (ICD-10) Arthritis ?M19.90 - Unspecified osteoarthritis, unspecified site (ICD-10) Surgical History H/O midurethral sling procedure ?Z98.890 - Other specified postprocedural states (ICD-10) History of tubal ligation ?Z98.51 - Tubal ligation status (ICD-10) Family History Mother Family history of stroke Hyperlipemia Family history of hypertension Family history of CHF (congestive heart failure) Father Family history of cancer Family history of stroke Heart disease Social History (Updated 02/20/24 @ 06:53 by Rita Coker, RN) Within the past year, how often did you have a drink containing alcohol: monthly or less Smoking status: Former smoker Non-prescribed substance use: denies use Previous occupational history: retired Highest level of school completed/degree received: high school graduate Little interest or pleasure in doing things: not at all Feeling down, depressed, or hopeless: not at all Exam Constitutional Vital Signs, click to edit/add: Last Vital Signs Temp 98.8 F 02/05/25 15:09 Pulse 83 02/05/25 15:09 Resp 18 02/05/25 15:09 BP 150/80 H 02/05/25 15:09 Pulse Ox 98 02/05/25 15:09 O2 Del Method Room Air 02/05/25 15:09 Documenting provider has reviewed patient's vital signs: yes Common normals: no apparent distress, average body habitus and oriented x3 Exam limitations: no altered mental status General appearance: cooperative, comfortable and well kempt Orientation/consciousness: Yes awake, Yes oriented to person, Yes oriented to place and Yes oriented to time HENMT Common normals: hearing grossly normal bilaterally and external ears normal Head and scalp: normal to inspection Face and sinus: normal facial exam Nose: external nose normal General ear: hearing not grossly impaired Tympanic membrane: unable to visualize TM (Lateral negative bleeding negative discharge.) Mouth: lip normal and tongue normal Neck & C-Spine Common normals: full ROM and supple General: normal visual inspection and trachea midline; no tenderness Cervical spine: cervical ROM normal; no cervical spine tenderness, no step off deformity and no paracervical muscle tenderness Chest Common normals: inspection of chest normal and palpation of chest normal Chest: no tenderness (Negative tenderness including anterior and posterior lateral ribs bilateral) GI Common normals: Normal to inspection, nondistended, normoactive bowel sounds present and non-tender Auscultation: normoactive bowel sounds Palpation: non-tender Back & Pelvis Common normals: no CVA tenderness, thoracic and lumbar spine normal to inspection, no thoracic nor lumbar tenderness and thoraco-lumbar ROM normal General back: no CVA tenderness and no tenderness Extremity Right upper extremity: hand and digits; no findings for shoulder joint, no findings for clavicle, no findings for bony scapula, no findings for upper arm, no findings for elbow joint, no findings for lower arm and no findings for wrist Left upper extremity: no findings for shoulder joint, no findings for clavicle, no findings for bony scapula, no findings for upper arm, no findings for elbow joint, no findings for lower arm, no findings for wrist and no findings for hand and digits Right lower extremity: no findings for hip joint, no findings for upper leg, no findings for knee joint, no findings for lower leg, no findings for ankle joint and no findings for foot and digits Left lower extremity: ankle joint and foot and digits (Slight tenderness noted laterally left foot and ankle.Patient retains dist.); no findings for hip joint, no findings for upper leg, no findings for knee joint and no findings for lower leg Neuro Common normals: oriented x3, CN's II-XII intact bilaterally and moves all extremities Sensorium/orientation: awake, alert and oriented to person Psych Common normals: mental status grossly normal and thought process normal Course Course Hospital Course: Foot fracture. We applied posterior splint at 90 degree angle for foot. Demonstrated patient how to test for cap refill recheck MSPs post application. Vital Signs Vital signs: Vital Signs Temperature 98.8 F 02/05/25 15:09 Pulse Rate 83 02/05/25 15:09 Respiratory Rate 18 02/05/25 15:09 Blood Pressure 150/80 H 02/05/25 15:09 Pulse Oximetry 98 02/05/25 15:09 Oxygen Delivery Method Room Air 02/05/25 15:09 Temperature 98.8 F 02/05/25 15:09 Pulse Rate 83 02/05/25 15:09 Respiratory Rate 18 02/05/25 15:09 Blood Pressure 150/80 H 02/05/25 15:09 Pulse Oximetry 98 02/05/25 15:09 Oxygen Delivery Method Room Air 02/05/25 15:09 Medical Decision Making [facility] Narrative Medical decision making narrative: Patient presents with mechanical fall left foot and ankle injury right hand injury including abraded area. Denies loss of consciousness positive for head injury hit her head. [place] as if she may pass out. Usually takes aspirin and has not had her aspirin in 3 days. But does bruise easily. Differential Diagnosis Differential Diagnosis: Injury, intercerebral bleed, foot fracture, ankle fracture, hand fracture, Discharge Plan Discharge Chief Complaint: Extremity Injury, Lower Clinical Impression: Abrasion Foot fracture Qualifiers: Encounter type: initial encounter Fracture type: closed Laterality: left Qualified Code(s): S92.902A - Unspecified fracture of left foot, initial encounter for closed fracture Head injury Qualifiers: Encounter type: initial encounter Qualified Code(s): S09.90XA - Unspecified injury of head, initial encounter Patient Disposition: Home, Self-Care Time of Disposition Decision: 17:35 Mode of Transportation: Private Vehicle Prescriptions / Home Meds: New hydrocodone-acetaminophen 5-325 mg tablet 1 tab PO Q8H PRN (Reason: pain) Qty: 14 0RF Rx Instructions: Do not drive or operate equipment taking this medication. No Action mirabegron [Myrbetriq] 50 mg tablet extended release 24 hr 50 mg PO Q24H aspirin [Adult Low Dose Aspirin] 81 mg tablet,delayed release (DR/EC) 81 mg PO DAILY calcium carb-D3-mag [id number] [phone] my-efor-tz-mg tablet 1 tab PO DAILY Rx Instructions: administer with a meal escitalopram oxalate [Lexapro] 20 mg tablet 20 mg PO DAILY magnesium PO ferrous sulfate PO multivitamin Tablet 1 tab PO DAILY vitamin B complex Capsule 1 cap PO DAILY vitamin A-vitamin C-vitamin E Tablet 1 tab PO DAILY Rx Instructions: administer with a meal Print Language: Khmer Instructions: Foot Fracture in Adults (ED), Head Injury (ED), Abrasion (ED) Additional Instructions: Primary care, podiatry. Return to if any symptoms worsen or new symptoms develop. Reapply bacitracin dressing twice daily to abrasions after washing with gentle soap and water. Do not drive or operate equipment taking medication clued a [place] as it may cause drowsiness. This will 4000 mg of acetaminophen per day including [place]. Use your walker. Remain nonweightbearing. Rest ice elevate compress with ice 15 minutes on 15 minutes off. Monitor foot for discoloration increased pain worsening ( greater than 2 seconds) cap refill as we demonstrated Referrals: Physician,Non-Staff, [Primary Care Provider] - 1 week Highlander,Peter, DPM [Physician, Podiatry] - As soon as possible
[2025-02-05] MEDS: HYDROCODONE/ACET 5-325 MG TABLET 1 TAB PO (17:02)
[2025-02-05] MEDS: BACITRACIN 0.9 GM PACKET 1 PACKET TOPICAL (17:03)
== END 2025-02-05 17:57 | disposition home or self-care (01) ==
PROVIDERS: Emergency Provider Emergency Medicine
DX: S60.511A Abrasion of right hand, initial encounter (principal); M25.572 Pain in left ankle and joints of left foot; M79.641 Pain in right hand; S92.902A Unspecified fracture of left foot, initial encounter for closed fracture; S09.90XA Unspecified injury of head, initial encounter; W10.9XXA Fall (on) (from) unspecified stairs and steps, initial encounter
CPT/HCPCS: 70450; 73130; 73610; 73630; 99284

== ENCOUNTER 2025-03-12 10:49 | Outpatient (OUT) | payer MEDICARE, SELFPAY ==
--- OUTSIDE RECORDS SUMMARY | 2025-03-03 15:30 | XMS_ITS | Encounter Summary ---
Author Organization [facility] Address [id number] [address] [place] [address] Care Team Providers Care Skiver Welt End Name Role Phone iGl Brar MD Primary Care Provider [phone] Reason for Visit * Reason Comments Annual Exam Medicare wellness Encounter Details Date Type Department Care Team (Late st Contact Info) Description 03/03/2025 3:30 PM EDT Office Visit [facility] [address] [place] [phone] Gil Brar MD [address] [place] [address] Encounter for Medicare annual wellness exam (Primary Dx); Cough due to KARISSA inhibitor; Encounter for screening mammogram for malignant neoplasm of breast; Mixed hyperlipidemia; Heart failure with mildly reduced ejection fraction (CMS-HCC); Impaired fasting glucose Social History Tobacco Use Types Packs/Day Years [...] 05/03 PHQ-2 Answer Date Recorded Total Score 1 03/03/2025 Childcare Answer Date Recorded Childcare Unknown 12/11/2018 Employment Answer Date Recorded Employment Unknown 12/11/2018 Hunger Screening Answer Date Recorded Within the past 12 months we worried whether our food would run out before we got money to buy more. Never True 03/03/2025 Within the past 12 months th e food we bought just didn't last and we didn't have money to get more. Never True 03/03/2025 Purpose - Life Answer Date Recorded Purpose and direction in life Unknown Comments No Sex and Gender Information Value Date Recorded Sex Assigned at Not on file Legal Sex Female 11:27 AM EDT Gender Identity Not on file Sexual Orientation Not on file documented as of this encounter Last Filed Vital Signs Vital Sign Reading Time Taken Comments Blood Pressure 120/62 03/03/2025 3:28 PM EDT Pulse 89 03/03/2025 3:28 PM EDT Temperature - - Respiratory Rate 18 03/03/2025 3:28 PM EDT Oxygen Saturation 98% 03/03/2025 3:28 PM EDT Inhaled Oxygen Concentration - - Weight 70.3 kg (155 lb) 03/03/2025 3:28 PM EDT Height 166.4 cm (5' 5.5 ) 03/03/2025 3:28 PM EDT Body Mass Index 25.4 03/03/2025 3:28 PM EDT documented in this encounter Progress Notes * Gil Brar MD - 03/03/2025 3:30 PM EDT Images from the original note were not included. [id number] [facility] [id number] Subjective: Luma Carter is a 69 y.o. female who presents for a Medicare Annual Wellness exam. The following portions of the patient's history were reviewed and updated as appropriate: Health Risk Assessment, allergies, past medical history, past surgical history, social history, family history, and immunization history Accompanied by: self History Provided By: self Language and Other Communication Barriers: Primary Language Spoken: Tongan Highest Level of Education Completed: high school diploma/GED Are You Happy With How Well You Read? yes Diet and Physical Activity: Current Prescribed Diet: Regular Diet How would you describe the condition of your mouth and teeth, including false teeth and dentures? Good Exercise Frequency: Daily Types of Exercise: Walking Health Risk Assessment: Cognitive Screening Do you have trouble remembering or recalling facts or events?: No Do family members or caregivers report that you have difficulty remembering things?: No Depression Screening Little interest or pleasure in doing things: Not at all Feeling down, depressed, or hopeless: Not at all Trouble falling or staying asleep, or sleeping too much: (!) Several days Feeling tired or having little energy: Not at all Poor appetite or overeating: Not at all Feeling bad about yourself - or that you are a failure or have let yourself or your family down: Not at all Trouble concentrating on things, such as reading the newspaper or watching television: Not at all Moving or speaking so slowly that other people could have noticed. Or the opposite - being so fidgety or restless that you have been moving around a lot more than usual: Not at all Thoughts that you would be better off , or of hurting yourself in some way: Not at all End of Life Planning Do you have a living will?: (!) No Do you have a durable power of mergers and acquisitions attorney?: Yes Fall Risk Fall Risk Assessment Completed?: Yes Hearing Assessment Do you strain or struggle to hear/understand conversations?: (!) Yes Do you have trouble hearing the television or radio when others do not?: No Does your family ever voice concerns about your hearing?: No Do you wear hearing aid/s?: No Lifestyle Assessment Do you smoke or use smokeless tobacco?: No If you smoke or use smokeless tobacco, are you ready to quit?: NA Are you exposed to secondhand smoke?: No On average, how many drinks of alcohol do you consume in a week?: 2 - 5 Do you exercise for 30 or more minutes on average at least 3 days a week?: Always Do you have any tooth, denture, or oral problems?: (!) Yes Do you snore or has anyone told you that you snore?: No Do you try to eat a balanced diet?: Yes Do you experience leakage of urine, also known as urinary incontinence?: (!) Always Do you have difficulty bathing?: No Do you have difficulty dressing?: No Do you have difficulty grooming?: No Do you have difficulty eating?: No Do you have difficulty getting out of a chair?: No Do you have difficulty walking?: No Do you have difficulty using the toilet?: No Do you have difficulty doing laundry?: No Do you have difficulty with housekeeping?: No Do you have difficulty preparing a meal?: No Do you have difficulty shopping?: No Do you have difficulty using transportation?: No Do you have difficulty paying bills?: No Do you have difficulty managing finances?: No Personal Health During the past 4 weeks, how would you rate your overall health?: Very Good Do you understand how to take all of your medications?: Yes How confident are you that you can control and manage most of your health problems?: Very confident In the past 12 months, how many times have you been hospitalized?: None Safety Assessment Do you have throw rugs on the floor?: (!) Yes Do you feel safe at your home?: Yes Do you feel unsteady when walking?: No Are you having difficulty with driving?: No Do you have trouble seeing?: No Do you use a bath bar/seat?: No Do you use a raised toilet seat?: No Do you use a cane?: No Do you use a walker?: No Do you use a wheelchair?: No Vitals: Vitals: 03/03/25 1528 BP: 120/62 Pulse: 89 Resp: 18 SpO2: 98% Body mass index is 25.4 kg/m??. History: Hospitalizations during the past 12 months: no Patient Active Problem List Diagnosis Date Noted Vertigo, benign paroxysmal 05/05/2019 SOB (shortness of breath) 06/14/2018 LBBB (left bundle branch block) 06/14/2018 [place] grade 1 rectocele 01/22/2018 Rectocele, female 09/07/2017 MVP (mitral valve prolapse) 07/16/2017 Primary osteoarthritis involving multiple joints 07/16/2017 Urinary incontinence 12/25/2016 Past Medical History: Diagnosis Date Arthritis Cervical cancer ([facility]) Pacemaker Past Surgical History: Procedure Laterality Date CARDIAC PACEMAKER PLACEMENT OTHER SURGICAL HISTORY anterior/posterior seperation, pelvis seperated TUBAL LIGATION URETHRAL SLING WRIST FRACTURE SURGERY Family History Problem Relation Age of Onset Stroke Mother Hyperlipidemia Mother Hypertension Mother Heart failure Mother pacemaker Colon cancer Father Heart disease Father Stroke Father Stomach cancer Father Social History Tobacco Use Smoking status: Former Types: Cigarettes Smokeless tobacco: Never Tobacco comments: Casual smoker, less than a pack a week Substance Use Topics Alcohol use: Yes Comment: occasional Allergies: No Known Allergies Current Outpatient Medications Medication Sig Dispense Refill aspirin 81 mg Take 1 tablet (81 mg total) by mouth in the morning. atorvastatin (LIPITOR) 20 mg tablet Take 1 tablet (20 mg total) by mouth in the morning. MSVLEUM-EAOLXVAFV-OBMH ORAL Take 1 capsule by mouth in the evening. cetirizine (ZyrTEC) 10 mg tablet Take 1 tablet (10 mg total) by mouth in the morning. 30 tablet 2 cholecalciferol, vitamin D3, (VITAMIN D3 ORAL) Take 2 capsules by mouth in the morning. docosahexaenoic acid/epa (FISH OIL ORAL) Take 1 capsule by mouth in the morning. Osteo Bi-flex. escitalopram (LEXAPRO) 10 mg tablet Take 2 tablets (20 mg total) by mouth in the morning. 180 tablet 3 ferrous sulfate (IRON ORAL) Take by mouth. fluticasone propionate (FLONASE) 50 mcg/actuation nasal spray Administer 1 spray into each nostril in the morning. 15.8 mL 2 MAGNESIUM ORAL Take by mouth. MULTIVITAMIN ORAL Take 1 capsule by mouth in the morning. Hair, Skin, and Nails. MYRBETRIQ 50 mg tablet extended release 24 hr Take 1 tablet (50 mg total) by mouth in the morning. vit A/vit C/vit E/zinc/copper (PRESERVISION AREDS ORAL) Take 1 capsule by mouth in the morning. vitamin B complex (B COMPLEX ORAL) Take by mouth. losartan (COZAAR) 25 mg tablet Take 0.5 tablets (12.5 mg total) by mouth in the morning. 15 tablet 11 No current facility-administered medications for this visit. Immunization History Administered Date(s) Administered COVID-19, mRNA, LNP-S, PF, 100mcg/0.5mL Dose 09/03/2020, 09/29/2020, 06/15/2021 Covid-19, Mrna, Lnp-s, Bivalent, Pf, 50mcg/0.5ml or 25mcg/0.25ml 06/20/2022 Covid-19,mrna, Lnp-s, Pf, 50mcg/0.5ml 12+ Seasonal 05/16/2023, 05/11/2024 Influenza (IM) Preservative Free 06/19/2015 Influenza Vaccine, Quadrivalent, Adjuvanted 03/29/2020, 04/12/2021, 05/16/2023 Influenza, High-dose, Quadrivalent 03/05/2022 Influenza, Injectable, quadrivalent (PF) 06/11/2017, 04/22/2018, 03/31/2019 Influenza, Unspecified 04/12/2021 Pneumococcal Conjugate 13-Valent 03/31/2019 Pneumococcal Polysaccharide 04/14/2010, 03/05/2022 Pneumococcal, Unspecified 03/05/2022 RSV, recombinant, protein subunit RSVpreF, adjuvant reconstituted, 0.5 mL, PF 06/18/2023 Tdap 09/12/2011, 03/31/2019 Zoster Vaccine Recombinant 07/20/2019, 03/29/2020 Medication Adherence: Original 4-item [place] Scale Do you ever forget to take your medicine? no Are you careless at times about taking your medicine? no When you feel better, do you sometimes stop taking your medicine? no Sometimes if you feel worse when you take your medicine, do you stop taking it? no Score: 4 Scoring: high-low; yes=0 no=1. Range 0-4. By reversing the wording of four questions about the way patients might experience drug omissions, the sum of yes answers would provide a composite measureof non-adherence. Higher scores indicate higher adherence. Cognitive Screening: Clock Drawing Test: Normal Mini-Co/3 Patient Concerns for Cognitive Function: no Family Concerns for Cognitive Function: no Sensory Screening: Hearing right ear: normal Hearing left ear: normal Can you hear what a person says without seeing his/her face, if spoken in a normal voice from across the room? Yes Can you hear what a person says without seeing his/her face, if that person whispers to you from across a room? Yes Do you use a hearing aid: No Review of Systems: Review of Systems Constitutional: Negative for chills and fever. HENT: Negative for ear pain and sore throat. Eyes: Negative for pain and visual disturbance. Respiratory: Negative for cough and shortness of breath. Cardiovascular: Negative for chest pain and palpitations. Gastrointestinal: Negative for abdominal pain and vomiting. Genitourinary: Negative for dysuria and hematuria. Musculoskeletal: Negative for arthralgias and back pain. Skin: Negative for color change and rash. Neurological: Negative for seizures and syncope. All other systems reviewed and are negative. Objective: Physical Exam Constitutional: Appearance: She is well-developed. HENT: Head: Normocephalic and atraumatic. Nose: Nose normal. Mouth/Throat: Mouth: Mucous membranes are moist. Pharynx: No oropharyngeal exudate. Eyes: Pupils: Pupils are equal, round, and reactive to light. Cardiovascular: Rate and Rhythm: Normal rate and regular rhythm. Heart sounds: Normal heart sounds. No murmur heard. Pulmonary: Effort: Pulmonary effort is normal. No respiratory distress. Breath sounds: Normal breath sounds. No wheezing. Abdominal: General: Bowel sounds are normal. Palpations: Abdomen is soft. Tenderness: There is no abdominal tenderness. Musculoskeletal: General: Normal range of motion. Cervical back: Neck supple. Lymphadenopathy: Cervical: No cervical adenopathy. Skin: General: Skin is warm and dry. Findings: No rash. Neurological: Mental Status: She is alert and oriented to person, place, and time. Cranial Nerves: No cranial nerve deficit. Orders Only on 01/13/2022 Component Date Value Ref Range Status External Cholesterol 01/12/2022 213 (A) <=200 Final External Cholesterol:Hdl 01/12/2022 4.8 4.4 - 7.1 Final External Hdl Cholesterol 01/12/2022 44 40 - 60 Final External Ldl (Calc) 01/12/2022 143.2 (A) 100 - 129 Final External Triglycerides 01/12/2022 129 <=150 Final External Very Low Lipoprotein 01/12/2022 25.8 Final Advanced Directives: Living Will: No DPA for Health Care: Yes Discussion and Summary: Risk findings: none Personalized Prevention Plan Services: Specialty Evaluation Advised:N/A Preventative Programs Recommended: N/A Prevention Counseling and Education Materials:N/A Diseases: N/A Immunizations: N/A Nutrition: N/A Activity/Exercise/Safety/Misc: N/A The above recommendations were discussed with the patient. Medicare Available Services: Admin of Pneumococcal Vaccine: Completed Admin of influenza vaccine: Completed Admin of Hep B vaccine: Not applicable AAA ultrasound screening: Not applicable Screening mammography: Recommended Screening pap and pelvic exam: Not applicable Prostate cancer screening: Not applicable Colorectal cancer screening tests: Recommended DM outpatient self management training services: Not applicable Bone mass measurements: Recommended Screening for glaucoma: Recommended Cardiovascular screening blood tests: Recommended DM screening blood tests: Recommended Smoking cessation counseling: Completed Counseling to prevent tobacco use: Completed Screening/counseling to reduce alcohol misuse: Completed Behavioral therapy for obesity: Not applicable STI infection screening and behavioral counseling: Not applicable Medical nutrition therapy services for DM: Not applicable Medical nutrition therapy services: Not applicable Copy to patient and copy in patient's medical record. Assessment/Plan: Luma Handy [place] has been seen for a well visit today. Preventative recommendations were reviewed. Any chronic conditions that have been addressed include those listed below. Luma was seen today for annual exam. Diagnoses and all orders for this visit: Encounter for Medicare annual wellness exam Cough due to KARISSA inhibitor - losartan (COZAAR) 25 mg tablet; Take 0.5 tablets (12.5 mg total) by mouth in the morning. Encounter for screening mammogram for malignant neoplasm of breast - Mammography screening bilateral with CAD; Future Mixed hyperlipidemia - Hemoglobin A1c; Future - Thyroid profile includes TSH FT4; Future Heart failure with mildly reduced ejection fraction (CMS-HCC) - Comprehensive metabolic panel; Future - Thyroid profile includes TSH FT4; Future - Lipid profile; Future Plan: -Uptodate on cologuard. Due in 2026 Advised to get flu shot this year -Monitor for any weight loss. -encouraged a healthy diet. Follow Up: 6 mo documented in this encounter Plan of Treatment Upcoming Encounters Date Type Department Care Team (Late st Contact Info) Description 08/31/2025 11:45 AM EST Office Visit [facility] [address] [place] [phone] Gil Brar MD [address] [place] [address] Scheduled Orders Name Type Priority Associated Diagnoses Orde r Schedule Mammography screening bilateral with CAD Imaging Routine Encounter for screening mammogram for malignant neoplasm of breast Expected: 03/03/2025, Expires: 03/03/2026 Comprehensive metabolic panel Lab Routine Heart failure with mildly reduced ejection fraction (CMS-HCC) 1 Occurrences starting 03/03/2025 until 03/03/2026 Hemoglobin A1c Lab Routine Impaired fasting glucose 1 Occurrences starting 03/03/2025 until 03/03/2026 Thyroid profile includes TSH FT4 Lab Routine Mixed hyperlipidemia Heart failure with mildly reduced ejection fraction (CMS-HCC) 1 Occurrences starting 03/03/2025 until 03/03/2026 Lipid profile Lab Routine Heart failure with mildly reduced ejection fraction (CMS-HCC) 1 Occurrences starting 03/03/2025 until 03/03/2026 documented as of this encounter Visit Diagnoses Diagnosis Encounter for Medicare annual wellness exam- Primary Cough due to KARISSA inhibitor Encounter for screening mammogram for malignant neoplasm of breast Mixed hyperlipidemia Heart failure with mildly reduced ejection fraction (CMS-HCC) Impaired fasting glucose documented in this encounter Additional Health Concerns Assessment Noted Time PHQ-9 Depression Total Score: 1 03/03/20 3:00 PM EDT A Body Mass Index follow-up plan has been documented for the patient 11/22/2018 2:06 PM EDT documented as of this encounter Care Teams Skiver Welt End Relationship Specialty Start Date End Date Gil Brar MD [address] [place], [place] [phone] PCP - General Internal Medicine 10/30/24 documented as of this encounter
--- OUTSIDE RECORDS SUMMARY | 2025-03-12 10:51 | XMS_ITS | Encounter Summary ---
Author Organization [employer] [facility] Address [id number] [address] [place] [address] Care Team Providers Care Board Attendant Name Role Phone Gil Brar MD Primary Care Provider [phone] Encounter Details Date Type Department Care Team (Late st Contact Info) Description 06/22/2023 Telephone [facility] [address] [place] [address] Florence Driscoll CMA Social History [...] Patient scheduled for [facility] 07/05/23. [facility] for pacemaker placement. Records in careeverywhere. Please call patient. Thanks! * Telephone Encounter - Nela Phillips RN - 06/22/2023 3:27 PM EST Got it!! Thanks. I will call her today. documented in this encounter Plan of Treatment Upcoming Encounters Date Type Department Care Team (Late st Contact Info) Description 08/31/2025 11:45 AM EST Office Visit [facility] [address] [place] [phone] Gil Brar MD [address] [place] [address] documented as of this encounter Visit Diagnoses Not on filedocumented in this encounter Additional Health Concerns Assessment Noted Time PHQ-9 Depression Total Score: 0 12/21/19 23 3:00 PM EDT A Body Mass Index follow-up plan has been documented for the patient 11/22/2018 2:06 PM EDT documented as of this encounter Care Teams Board Attendant Relationship Specialty Start Date End Date Gil Brar MD [address] [place] [address] PCP - General Internal Medicine 10/30/24 documented as of this encounter
--- OUTSIDE RECORDS SUMMARY | 2025-03-12 10:51 | XMS_ITS | Encounter Summary ---
Author Organization [facility] Address [id number] [address] [place] [address] Care Team Providers Care Civil Celebrant Name Role Phone Gil Brar MD Primary Care Provider [phone] Reason for Visit * Reason Onset Date Comments Transition Of Care 06/26/2023 Encounter Details Date Type Department Care Team (Late st Contact Info) Description 06/26/[address] [facility] [address] [place] [address] Nela Phillips, CARLIE Transition Of [...] Discharge Specialty: Cardiac Name of Discharging Facility: [facility] Date of Facility Discharge: 06/22/23 Date of Interactive Contact and Name of Dry Primer Powder Blender: Spoke with Luma on 06/26/23 Medication Review [...] [facility] on 07/04/2023 Specialty: Cardiology- @ [place] office 07/24/23 @ 1:40 Specialty: Review of Pending Lab/Diagnostic Tests and Plan for Completion: 06/21/23: Implantation of pacemaker (Biotronik) Patient went to [place] ER on 06/24/23 for CP/severe heart burn. 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 -CN contact information, Nela Phillips RN, can be reached at [phone] and will follow for a minimum of 30 days following hospitalization. Communication with Home Health Agencies and Other Services Utilized/Needed by the Patient: documented in this encounter Plan of Treatment Upcoming Encounters Date Type Department Care Team (Late st Contact Info) Description 08/31/2025 11:45 AM EST Office Visit [facility] [address] [place] [phone] Gil Brar MD [address] [place] [address] documented as of this encounter Visit Diagnoses Not on filedocumented in this encounter Additional Health Concerns Assessment Noted Time PHQ-9 Depression Total Score: 0 12/21/19 23 3:00 PM EDT A Body Mass Index follow-up plan has been documented for the patient 11/22/2018 2:06 PM EDT documented as of this encounter Care Teams Civil Celebrant Relationship Specialty Start Date End Date Gil Brar MD [facility] [place] [address] PCP - General Internal Medicine 10/30/24 documented as of this encounter
--- OUTSIDE RECORDS SUMMARY | 2025-03-12 10:51 | XMS_ITS | Encounter Summary ---
Author Organization [employer] [facility] Address [id number] [address] [place] [address] Care Team Providers Care Document Improvement Specialist Name Role Phone Gil Brar MD Primary Care Provider [phone] Encounter Details Date Type Department Care Team (Late st Contact Info) Description 03/06/2025 Telephone [facility] [address] [place] [address] Florence Driscoll CMA Social History [...] Telephone Encounter - Florence Driscoll CMA - 03/06/2025 12:24 PM EDT HGB A1c is not clearing ABN. Please use the dx code of impaired fasting glucose. Then we need to fax to Tony bhat * Telephone Encounter - Gil Brar MD - 03/06/2025 12:24 PM EDT I have changed the diagnosis. Please fax over to tony * Telephone Encounter - Florence Driscoll CMA - 03/06/2025 12:24 PM EDT LM on pt vm that new orders were faxed to [facility] documented in this encounter Plan of Treatment Upcoming Encounters Date Type Department Care Team (Late st Contact Info) Description 08/31/2025 11:45 AM EST Office Visit [facility] [address] [place] [phone] Gil Brar MD [address] [place] [address] documented as of this encounter Visit Diagnoses Not on filedocumented in this encounter Additional Health Concerns Assessment Noted Time PHQ-9 Depression Total Score: 1 03/03/20 25 3:00 PM EDT A Body Mass Index follow-up plan has been documented for the patient 11/22/2018 2:06 PM EDT documented as of this encounter Care Teams Document Improvement Specialist Relationship Specialty Start Date End Date Gil Brar MD [address] [place] [address] PCP - General Internal Medicine 10/30/24 documented as of this encounter
--- OUTSIDE RECORDS SUMMARY | 2025-03-12 10:51 | XMS_ITS | Encounter Summary ---
Author Organization Invenias tem Address [id number] [address] [place] [address] Care Team Providers Care Production Support Supervisor Name Role Phone Gil Brar MD Primary Care Provider Encounter Details Date Type Department Care Team (Latest Contact Info) Description 03/03/2025 Travel Social History Tobacco Use Types Packs/Day Years [...] EST Office Visit [facility] [address] [place] [address] Gil Brar MD [address] [place] [address] documented as of this encounter Visit Diagnoses Not on filedocumented in this encounter Additional Health Concerns Assessment Noted Time PHQ-9 Depression Total Score: 1 03/03/20 25 3:00 PM EDT A Body Mass Index follow-up plan has been documented for the patient 11/22/2018 2:06 PM EDT documented as of this encounter Care Teams Production Support Supervisor Relationship Specialty Start Date End Date Gil Brar MD [address] [place] [address] [phone] PCP - General Internal Medicine 10/30/24 documented as of this encounter
--- OUTSIDE RECORDS SUMMARY | 2025-03-12 10:51 | XMS_ITS | Encounter Summary ---
Author Organization [facility] [employer] Sys tem Address [facility][id number] [address] [place] [address] Care Team Providers Care Long Term Acute Care Registered Nurse Name Role Phone Gil Brar MD Primary Care Provider [phone] Encounter Details Date Type Department Care Team (Late st Contact Info) Description 06/26/2023 Orders Only [facility] [address] [place] [address] External, Scanning Provider Social History [...] EST Office Visit [facility] [address] [place] [address] Gil Brar MD [address] [place] [address] documented as of this encounter Procedures [...] Computed Radiogr aphy Narrative 2023 Ordering Provider: [facility] Dr. Chuck Dutton us Scanning Provider External [...] documented as of this encounter Care Teams Long Term Acute Care Registered Nurse Relationship Specialty Start Date End Date Gil Brar MD [address] [place] [address] PCP - General Internal Medicine 10/30/24 documented as of this encounter
--- OUTSIDE RECORDS SUMMARY | 2025-03-12 10:51 | XMS_ITS | Encounter Summary ---
Author Organization [facility] Address [facility] [place][id number] [address] [place] [address] Care Team Providers Care Physical Therapist Clinic Director Name Role Phone Gil Brar MD Primary Care Provider [phone] Reason for Visit * Reason Onset Date Comments Med Refill 12/02/2020 Encounter Details Date Type Department Care Team (Late st Contact Info) Description 12/02/2020 Refill [facility] [address] [place] [phone] Albertina Lantigua CMA Social History Tobacco Use [...] AM EDT Requesting refill of propranolol to [place] documented in this encounter Plan of Treatment Upcoming Encounters Date Type Department Care Team (Late st Contact Info) Description 08/31/2025 11:45 AM EST Office Visit [facility] [address] [place] [phone] Gil Brar MD [address] [place], [place] [phone] documented as of this encounter Visit Diagnoses Not on filedocumented in this encounter Additional Health Concerns Assessment Noted Time PHQ-9 Depression Total Score: 6 11/06/19 21 10:00 AM EDT A Body Mass Index follow-up plan has been documented for the patient 11/22/2018 2:06 PM EDT documented as of this encounter Care Teams Physical Therapist Clinic Director Relationship Specialty Start Date End Date Gil Brar MD [address] [place] [address] PCP - General Internal Medicine 10/30/24 documented as of this encounter
--- OUTSIDE RECORDS SUMMARY | 2025-03-12 10:51 | XMS_ITS | Clinical Summary ---
Author Organization [facility] Healthcare Address [address] [place] [address] Care Team Providers Care Flea Market Seller Name Role Phone Unavailable Primary Care Provider [...]
--- OUTSIDE RECORDS SUMMARY | 2025-03-12 10:51 | XMS_ITS | Encounter Summary ---
Author Organization [facility] [employer] Sys tem Address [id number] [address] [place] [address] Care Team Providers Care Abrading Machine Tender Name Role Phone Gil Brar MD Primary Care Provider [phone] Encounter Details Date Type Department Care Team (Late st Contact Info) Description 01/13/2022 Orders Only [facility] [address] [place] [address] Rody García LPN Mixed hyperlipidemia [...] EST Office Visit [facility] [address] [place] [address] Gil Brar MD [facility] [place] [address] documented as of this encounter Procedures Procedure Name Priority Date/Time Associated Diagnosis Comments THYROID PROFILE INCLUDES TSH FT4 Routine 01/12/2022 Mixed hyperlipidemia CBC WITH AUTO DIFFERENTIAL Routine 01/12/2022 Mixed hyperlipidemia LIPID PROFILE Routine 01/12/2022 Mixed hyperlipidemia COMPREHENSIVE METABOLIC PANEL Routine 01/12/2022 Mixed hyperlipidemia documented in this encounter Results * CBC auto differential (01/12/2022) 01/12/2022 Cr Killian MD LAB BLOOD ORDERABLES Final [facility] Performing Organization Address [facility] Co de Phone Number SUNQUEST * Comprehensive metabolic panel (01/12/2022) 01/12/2022 Cr Killian MD LAB BLOOD ORDERABLES Final R esult Performing Organization Address [facility] Co de Phone Number SUNQUEST * (ABNORMAL) Lipid profile (01/12/2022) External Cholesterol 213(A) <=200 [facility] External Cholesterol:Hdl 4.8 4.4 - 7.1 [facility] External Hdl Cholesterol 44 40 - 60 [facility] External Ldl (Calc) 143.2(A) 100 - 129 [facility] External Triglycerides 129 <=150 [facility]QUEST External Very Low Lipoprotein 25.8 [facility] 01/12/2022 Cr Killian MD LAB BLOOD ORDERABLES Final R esult Performing Organization Address [facility] de Phone Number SUNQUEST * Thyroid profile includes TSH FT4 (01/12/2022) 01/12/2022 Cr Killian MD LAB BLOOD ORDERABLES Final R esult Performing Organization Address [facility] de Phone Number SUNQUEST documented in this encounter Visit Diagnoses Diagnosis Mixed hyperlipidemia documented in this encounter Additional Health Concerns Assessment Noted Time PHQ-9 Depression Total Score: 0 01/12/20 22 11:00 AM EDT A Body Mass Index follow-up plan has been documented for the patient 11/22/2018 2:06 PM EDT documented as of this encounter Care Teams Abrading Machine Tender Relationship Specialty Start Date End Date Gil Brar MD [address] [place] [address] PCP - General Internal Medicine 10/30/24 documented as of this encounter
--- OUTSIDE RECORDS SUMMARY | 2025-03-12 10:52 | XMS_ITS | Encounter Summary ---
Author Organization [facility] Address [address] [facility], [address] [place] [address] Care Team Providers Care Transformer Assembler Name Role Phone Cr Killian MD Primary Care Provider [phone] Reason for Visit * Reason Comments Medication Refill Encounter Details Date Type Department Care Team (Late st Contact Info) Description 10/13/2019 Refill [facility] Obstetrics and Gynecology [address] [place] [address] Servando Giraldo MD [address] [place] [address] Medication Refill Social History Tobacco Use Types [...] on filedocumented in this encounter Care Teams Transformer Assembler Relationship Specialty Start Date End Date Cr Killian MD [address] [place] [address] PCP - General Family Medicine 08/10/17 documented as of this encounter
--- OUTSIDE RECORDS SUMMARY | 2025-03-12 10:53 | XMS_ITS | Encounter Summary ---
Author Organization [facility] Address [address] [facility], [address] [place] [address] Care Team Providers Care Card Game Operator Name Role Phone Cr Killian MD Primary Care Provider [phone] Reason for Referral * Imaging (Routine) - Closed Specialty Diagnoses / Procedures Referred By Farhana muñoz Referred To Contact Radiology Diagnoses Encounter for screening mammogram for malignant neoplasm of breast Procedures ERICKA DIGITAL SCREEN W OR WO CAD BILATERAL Cr Killian MD [address] [place] [address] Phone: tel: fax: Referral ID Status Reason Start Date Expiration Date Visits Re quested Visits Authorized [id number] Closed 01/11/2022 01/11/2023 1 1 Encounter Details Date Type Department Care Team (Latest Contact Info) Description 01/11/2022 Transcribe Orders [facility] [address] [place] [address] Cr Killian MD [address] [place] [address] Encounter for screening mammogram for [...] mammogram documented in this encounter Care Teams Card Game Operator Relationship Specialty Start Date End Date Cr Killian MD [address] [place] [address] PCP - General Family Medicine 08/10/17 documented as of this encounter
--- OUTSIDE RECORDS SUMMARY | 2025-03-12 10:53 | XMS_ITS | Encounter Summary ---
Author Organization [facility] [email or web address] Sys tem Address [facility] [place][id number] [address] [place] [address] Care Team Providers Care Curer Acid Drum Name Role Phone Gil Brar MD Primary Care Provider [phone] Encounter Details Date Type Department Care Team (Late st Contact Info) Description 08/29/2024 Orders Only [facility] [address] [place] [address] External, Scanning Provider Social History [...] EST Office Visit [facility] [address] [place] [phone] Gil Brar MD [address] [place] [phone] documented as of this encounter Procedures Procedure [...] documented as of this encounter Care Teams Curer Acid Drum Relationship Specialty Start Date End Date Gil Brar MD [address] [place] [phone] PCP - General Internal Medicine 10/30/24 documented as of this encounter
--- OUTSIDE RECORDS SUMMARY | 2025-03-12 10:53 | XMS_ITS | Clinical Summary ---
Author Organization [facility] Address [address] [place] [address] Care Team Providers Care Inside Phone Sales Name Role Phone Cr Contreras Primary Care Provider [phone] Allergies No known active allergies Medications ascorbic [...] 08/16/2018 Active Ca Carb-Mag Cmb 11-D3-Zn Sulf [phone] ql-sdtb-lu-mg tab Take by mouth once daily. Active [...] is lower risk 7 09/24/2023 Data from: https://www.neighborhoodatlas.medicine.[facility].edu/. Last address used for calculation [address] 09/24/2023 Comments No Sex [...] history exists RSV Vaccine Completed 06/18/2023 Insurance [facility] [employer] PPO Care Teams Inside Phone Sales Relationship Specialty Start Date End Date Cr Contreras [address] [place] [address] PCP - General Family Medicine 08/23/18
--- OUTSIDE RECORDS SUMMARY | 2025-03-12 10:53 | XMS_ITS | Clinical Summary ---
Author Organization [facility] tem Address [facility] [place] [place][id number] [address] [place] [address] Care Team Providers Care Manager Research Development Name Role Phone Gil Brar MD Primary Care Provider [phone] Allergies No known active allergies Medications MULTIVITAMIN ORAL Take 1 capsule by mouth in the morning. Hair, Skin, and Nails. Active vit A/vit C/vit E/zinc/copper (PRESERVISION AREDS ORAL) Take 1 capsule by mouth in the morning. Active cholecalcifero l, vitamin D3, (VITAMIN D3 ORAL) Take 2 capsules by mouth in the morning. Active CALCIUM-MAGNES IUM-ZINC ORAL Take 1 capsule by mouth in the evening. Active docosahexaenoi c acid/epa (FISH OIL ORAL) Take 1 capsule [...] Activ e MAGNESIUM ORAL Take by mouth. Active vitamin B complex (B COMPLEX ORAL) Take by mouth. A ctive atorvastatin (LIPITOR) 20 mg tablet Take 1 [...] morning. 15.8 mL 2 01/15/20 25 Active losartan (COZAAR) 25 mg tabletIndicati ons:Cough due to KARISSA inhibitor Take 0.5 tablets (12.5 mg total) by mouth in the morning. 15 tablet 11 03/03/20 25 Active sod sulf-pot chloride-mag sulf 1.479-0.188- 0.225 gram tabletIndicati ons:Rectal bleeding Please see instructional sheet given by physicians office. 24 tablet 12/31/19 24 025 Discontinu ed(Patient Stopped On Own) lisinopriL (PRINIVIL,ZEST RIL) 5 mg tablet Take 1 tablet (5 mg total) by mouth. 10/14/19 25 025 Discontinu ed(Alterna te therapy) Active Problems Patient Care Coordination No te Formatting of this note migh t be different from the original. ECHO 48% 05/19 Problem Noted Date Diagnosed Date Vertigo, benign paroxysmal 05/05/2019 SOB (shortness of breath) 06/14/2018 LBBB (left bundle branch block) 06/14/2018 [place]-Walker grade 1 rectocele 01/22/2018 Rectocele, female 09/07/2017 [...] Encounters Date Type Department Care Team Description 03/06/2025 Telephone [facility] [place] [address] Florence Driscoll CMA 03/03/2025 3:30 PM EDT Office Visit [facility] [place] [address] Gil Brar MD Encounter for Medicare annual wellness exam (Primary Dx); Cough due to KARISSA inhibitor; Encounter for screening mammogram for malignant neoplasm of breast; Mixed hyperlipidemia; Heart failure with mildly reduced ejection fraction ([facility]); Impaired fasting glucose 03/03/2025 Travel 02/13/2025 Telephone [facility] [place] [address] Florence Driscoll CMA 01/14/2025 9:45 AM EDT Office Visit [facility] [address] [place] [address] [place] [address] Natalia Wolf APRN-CNP Chronic cough (Primary Dx); Weight loss, non-intentional 01/14/2025 Travel 12/17/2024 1:30 PM EDT Office Visit [facility] [place] [address] Natalia Wolf APRN-CNP Chronic cough (Primary Dx) [...] Pulse 89 03/03/2025 3:28 PM EDT Temperature 36.6 C (97.8 F) 12/25/2023 10:58 AM EDT Respiratory Rate 18 03/03/2025 3:28 PM EDT Oxygen Saturation 98% 03/03/2025 3:28 PM EDT Inhaled Oxygen Concentration - - Weight 70.3 kg (155 lb) 03/03/2025 3:28 PM EDT Height 166.4 cm (5' 5.5 ) 03/03/2025 3:28 PM EDT Body Mass Index 25.4 03/03/2025 3:28 PM EDT Plan of Treatment Upcoming Encounters Date Type Department Care Team (Late st Contact Info) Description 08/31/2025 11:45 AM EST Office Visit [facility] [address] [place] [address] Gil Brar MD [facility] [place] [address] Health Maintenance Due Date Last Done Comments Adult BMI Follow Up Plan 1973 Mammogram 01/08/2025 01/09/2024, 07/04, 08/18/2014 COVID-19 Vaccine (2023-2 5 season) 2025 05/11/2024, 05/16/2023, 06/20/2022, Additional history exists Influenza Vaccine 03/02/2025 05/11/2024, , 03/05/2022, Additional history exists Adult BMI Screening 03/03/2026 03/03/2025 Depression Screening 03/03/2026 03/03/2025 Fall Risk Screening 03/03/2026 03/03/2025 Medicare Annual Wellness Visit 03/03/2026 0 03/03/2025, 12/25/2023, 12/20/2022, Additional history exists Tobacco Screening 03/03/2026 03/03/2025 Colonoscopy 02/19/2029 02/20/2024 DTaP,Tdap and Td Vaccines (3 - Td or Tdap) 03/31/2029 03/31/2019, 09/12/2011 Zoster (Shingles) Vaccine Completed 03/29/2020, Medical Devices Implanted Type Area Insurance Office Manager Device Identifier Shelf Expiration Date Model / Serial / Lot Lead Pcng 45cm Ecrdl Promri Solia S Bp Actfx Strd Implant Lead [employer] [id number] / [id number] / [id number] Description:MIGEL Berger 45 Lead Pcng 45cm Ecrdl Promri Migel Berger Bp Actfx Strd Implant Lead [employer] [id number] / [id number] / [id number] Description:MIGEL Berger 53 Pacemaker-06/01 Implanted:06/01 (Quantity not on file) Pacemaker [employer] EDORA 8 DRErick / [id number] / [id number] Description:EDORA 8 DR-T Procedures Procedure Name Priority Date/Time Associated Diagnosis Comments COLONOSCOPY Routine 02/20/2024 Rectal bleeding HM MAMMOGRAPHY Routine 01/09/2024 from Last 3 Months or Most Recently Relevant to Health Maintenance Results * Colonoscopy (02/20/2024) us Ilana Packer FIRST AID ATTENDANT-SAND BUFFER GI PROCEDURE ORDERABL ES Final Result MANUALLY TRANSCRIBED RESULTS * HM MAMMOGRAPHY (01/09/2024) Anatomical Region Laterality Modality Other 01/09/2024 us Scanning Provider External HEALTH MAINTENANCE Fi nal Result from Last 3 Months or Most Recently Relevant to Health Maintenance Insurance [place] [address] MEDICARE Care Teams Manager Research Development Relationship Specialty Start Date End Date Gil Brar MD [address] [place] [address] PCP - General Internal Medicine 10/30/24
--- OUTSIDE RECORDS SUMMARY | 2025-03-12 10:53 | XMS_ITS | Clinical Summary ---
Author Organization [facility] Address [address] [place] [address] Care Team Providers Care Tinner Automatic Name Role Phone Cr Killian MD Primary Care Provider [phone] Allergies No known active allergies Medications Myrbetriq [...] 06/14/2018 07/24/2023 Urinary, incontinence, stress female 10/02/2017 [place]-Walker grade 2 cystocele 09/07/2017 0 07/24/2023 Herniation [...] Type Department Care Team Description 01/14/2025 Telephone [facility] [address] [place] [phone] Brooklyn Salgado MA 12/24/2024 8:40 AM EDT Ancillary Procedure [facility] [address] [place] [phone] Adjustment and management of cardiac pacemaker 12/14/2024 Orders Only [facility] [address] [place] [phone] Pan Monsalve MD from Last 3 Months [...] place to sleep or slept in a fpc (including now)? No 06/19/2023 Hunger Vital Sign [...] Care Team (Late st Contact Info) Description 04/29/2025 11:20 AM EDT Office Visit [facility] [address] [place] [address] Angle Treadwell MD [address] [place] [address] Health Maintenance Due Date Last Done Comments CT Colonography 1954 Colonoscopy 1954 Colorectal Cancer Screening 1954 FIT-DNA 1954 FIT 1954 FOBT 1954 Medicare Annual Wellness (AWV) 1954 Sigmoidoscopy 1954 Depression Screening 1966 Fall Risk Screening 2019 Mammogram 08/01/2019 08/01/2017 COVID-19 Vaccine ( season) 2025 05/11/2024, 05/16/2023, 06/20/2022, Additional history [...] this topic Medical Devices Implanted Type Area Oil Well Services Supervisor Device Identifier Shelf Expiration Date Model / Serial / Lot Lead,MigelS 53, - [id number] - [id number] Implanted:Qty: 1 on 06/21/2023 by Pan Monsalve MD at [facility] Lead [employer] [id number] 05/01/2025 [id number] / [id number] / Lead,MigelS 45, - [id number] - [id number] Implanted:Qty: 1 on 06/21/2023 by Pan Mnosalve MD at [facility] Lead [employer] [id number] 05/01/2025 [id number] / [id number] / [id number] Migel S 45 [id number] Implanted:06/21 (Quantity not on file) Lead 377 176 MIGEL S 45 / [id number] / [id number] Migel S 53 [id number] Implanted:06/21 (Quantity not on file) Lead 377 177 MIGEL S 53 / [id number] / Pacer Steffanie Cooper,Grzegorz - [id number] - [id number] Implanted:Qty: 1 on 06/21/2023 by Pan Monsalve MD at [facility] Pacemaker [employer] [id number] 09/29/2024 [id number] / [id number] / [id number] Kenneth 8 Grzegorz [id number] Implanted:06/21 (Quantity not on file) Pacemaker [id number] KENNETH 8 GRZEGORZ / [id number] / Procedures Procedure Name Priority Date/Time Associated Diagnosis Comments CARDIAC DEVICE CHECK CHECK - REMOTE Routine 01/15/2025 6:43 PM EDT Adjustment and management of cardiac pacemaker CARDIAC DEVICE CHECK - REMOTE - PACEMAKER Routine 12/14/2024 12:00 AM EDT from Last 3 Months Results * CARDIAC DEVICE CHECK - REMOTE - PACEMAKER (01/15/2025 6:43 PM EDT) Demar Nation MD CV IMPLANTABLE CARDIAC DEVICE AL OCEDURES Final Result CPACS * Cardiac device check - Remote pacemaker (12/14/2024 12:00 AM EDT) Anatomical Region Laterality Modality Other 12/14/2024 Pan Monsalve MD CV IMPLANTABLE CARDIAC DEVICE AL OCEDURES Final Result from Last 3 Months Insurance [employer] MEDICARE ADVANTAGE Advance Directives * Full Code (Latest Code Status on File) Date Activated Date Inactivated Comments 06/19/2023 10:52 AM 06/22/2023 5:12 PM Care Teams Tinner Automatic Relationship Specialty Start Date End Date Cr Killian MD PCP - General 06/19/23
--- OUTSIDE RECORDS SUMMARY | 2025-03-12 10:53 | XMS_ITS | Encounter Summary ---
Author Organization [facility] Address [facility] [place]-[id number] [address] [place] [address] Care Team Providers Care Speech Instructor Name Role Phone Gil Brar MD Primary Care Provider [phone] Encounter Details Date Type Department Care Team (Late st Contact Info) Description 11/03/2024 Orders Only [facility] [address] [place] [address] Cadence Weller LPN Weight loss, [...] EST Office Visit [facility] [address] [place] [phone] Gil Brar MD [address] [place] [address] documented as of this encounter [...] documented as of this encounter Care Teams Speech Instructor Relationship Specialty Start Date End Date Gil Brar MD [address] [place] [address] PCP - General Internal Medicine 10/30/24 documented as of this encounter
--- OUTSIDE RECORDS SUMMARY | 2025-03-12 10:53 | XMS_ITS | Encounter Summary ---
Author Organization [facility] [employer] Sys tem Address [facility] [place]-[id number] [address] [place] [address] Care Team Providers Care Writing Tutor Name Role Phone Gil Brar MD Primary Care Provider [phone] Encounter Details Date Type Department Care Team (Late st Contact Info) Description 06/26/2024 Orders Only [facility] [address] [place] [address] External, Scanning Provider Social History [...] EST Office Visit [facility] [address] [place] [phone] Gil Brar MD [address] [place] [phone] documented as of this encounter Visit Diagnoses Not on filedocumented in this encounter Additional Health Concerns Assessment Noted Time PHQ-9 Depression Total Score: 3 12/25/19 24 10:00 AM EDT A Body Mass Index follow-up plan has been documented for the patient 11/22/2018 2:06 PM EDT documented as of this encounter Care Teams Writing Tutor Relationship Specialty Start Date End Date Gil Brar MD [address] [place] [address] PCP - General Internal Medicine 10/30/24 documented as of this encounter
--- OUTSIDE RECORDS SUMMARY | 2025-03-12 10:53 | XMS_ITS | Encounter Summary ---
Author Organization [facility] Address [address] [place] [address] Care Team Providers Care Letter Stamping Machine Operator Name Role Phone Cr Killian MD Primary Care Provider [phone] Encounter Details Date Type Department Care Team (Late st Contact Info) Description 12/14/2024 Orders Only [facility] [address] [place] [address] Pan Monsalve MD [address] [place] [address] Social History Tobacco Use Types [...] and heating? Not hard at all 06/19/2023 [place] Safety & Environment Answer Date Rec orded [...] place to sleep or slept in a snf (including now)? No 06/19/2023 Hunger Vital Sign [...] 06/22/2023 1:49 PM Maria Fernanda Craven RN documented as of this encounter Mental Status * Because of a physical, mental, or emotional condition, do you have serious difficulty concentrating, remembering, or making decisions? (5 years old or older) Answer Entry Date Author No 06/22/2023 1:49 PM Maria Fernanda Craven RN documented in this encounter Plan of Treatment Upcoming Encounters Date Type Department Care Team (Late st Contact Info) Description 04/29/2025 11:20 AM EDT Office Visit [facility] [address] [place] [phone] Angle Treadwell MD [address] [facility] [address] [place] [address] documented as of this encounter Procedures Procedure Name Priority Date/Time Associated Diagnosis Comments CARDIAC DEVICE CHECK - REMOTE - PACEMAKER Routine 12/14/2024 12:00 AM EDT documented in this encounter Results * Cardiac device check - Remote pacemaker (12/14/2024 12:00 AM EDT) Anatomical Region Laterality Modality Other 12/14/2024 Pan Monsalve MD CV IMPLANTABLE CARDIAC DEVICE MI OCEDURES Final Result documented in this encounter Visit Diagnoses Not on filedocumented in this encounter Care Teams Letter Stamping Machine Operator Relationship Specialty Start Date End Date Cr Killian MD PCP - General 06/19/23 documented as of this encounter
--- OUTSIDE RECORDS SUMMARY | 2025-03-12 10:53 | XMS_ITS | Encounter Summary ---
Author Organization [facility] Address [id number] [address] [place] [address] Care Team Providers Care Field Sales Trainer Name Role Phone Gil Brar MD Primary Care Provider [phone] Encounter Details Date Type Department Care Team (Late st Contact Info) Description 01/21/2024 Orders Only [facility] [address] [place] [address] External, Scanning Provider Social History [...] EST Office Visit [facility] [address] [place] [phone] Gil Brar MD [address] [place] [address] documented as of this encounter Procedures [...] documented as of this encounter Care Teams Field Sales Trainer Relationship Specialty Start Date End Date iGl Brar MD [address] [place] [address] PCP - General Internal Medicine 10/30/24 documented as of this encounter
--- OUTSIDE RECORDS SUMMARY | 2025-03-12 10:53 | XMS_ITS | Encounter Summary ---
Author Organization [facility] Address [address] [facility], [address] [place] [address] Care Team Providers Care Communication Spec Name Role Phone Cr Killian MD Primary Care Provider [phone] Encounter Details Date Type Department Care Team (Late st Contact Info) Description 09/17/2018 [facility] workers' compensation claims supervisor [address] [place] [address] Servando Giraldo MD [address] [place] [address] Social History Tobacco Use Types Packs/Day Years [...] on filedocumented in this encounter Care Teams Communication Spec Relationship Specialty Start Date End Date Cr Killian MD [address] [place] [address] PCP - General Family Medicine 08/10/17 documented as of this encounter
--- OUTSIDE RECORDS SUMMARY | 2025-03-12 10:54 | XMS_ITS | Clinical Summary ---
Author Organization [facility] Address [address], [address] [place] [address] Care Team Providers Care Roll Tension Tester Name Role Phone Cr Killian MD Primary Care Provider [phone] Allergies No known active allergies Medications propranolol [...] Noted Date Diagnosed Date Stress incontinence 10/02/2017 [place] grade 2 cystocele 09/07/2017 Rectocele, female 09/07/2017 History of pelvic fracture 08/10/2017 Mixed incontinence urge and stress 08/10/2017 Intrinsic sphincter deficiency (ISD) 08/10/2017 Urge incontinence of urine 08/10/2017 MVP (mitral valve prolapse) 07/16/2017 Primary osteoarthritis involving multiple joints 07/16/2017 [place] grade 1 rectocele Urinary, incontinence, stress female [...] on file Medical Devices Implanted Type Area Lining Finisher Device Identifier Shelf Expiration Date Model / Serial / Lot Impl Sling Transvaginal Mid Ureth Adv Fit Sys Implanted:Qty: 1 on 09/27/2017 by Servando Giraldo MD at [facility] Urologic al/[employer] [place] [employer]: INTERVENTIONAL CARDIO-PMM 05/03/2020 [id number] / / [id number] Explanted Type Area Lining Finisher Device Identifier Shelf Expiration Date Model / Serial / Lot Impl Sling Transvaginal Mid Ureth Adv Fit Sys Implanted:Qty: 1 Explanted:Qty: 1 on 09/27/2017 at [facility] Urologic al/[employer] [place] [employer] INTERVENTIONAL CARDIO-PMM 08/15/2020 [id number] / [id number] Insurance [facility] Advance Directives * Full Code (Latest Code Status on File) Date Activated Date Inactivated Comments 09/27/2017 10:26 AM 09/27/2017 3:01 PM Care Teams Roll Tension Tester Relationship Specialty Start Date End Date Cr Killian MD [address] [place] [address] PCP - General Family Medicine 08/10/17
--- NOTE | 2025-03-12 10:55 | MM_ITS ---
Patient Name: GRISELDA DAVEY MR#: [id number] : 1955 Exam Date: 03/12/2025 Ordering Doctor: [facility] REPORT PROCEDURE: MM TOMOSYNTHESIS SCREENING BI COMPARISON: MM TOMOSYNTHESIS SCREENING BI, 01/09/2024. MG MAMM SCREEN CECI W CAD, 07/30/2017. INDICATIONS: screening Calculator Name NCI Breast Cancer Risk Assessment Tool 5 Year Breast Cancer Risk 1.40% Lifetime Breast Cancer Risk 4.00% Personal Breast Cancer No Personal Ovarian Cancer No Treatments None Family Cancers Father with stomach cancer at age ~55; Daughter with kidney cancer at age 38. LOCATION: [facility] BREAST COMPOSITION: There are scattered areas of fibroglandular density. FINDINGS: DIAGNOSTIC CATEGORY 1--NEGATIVE. RIGHT BREAST: No significant suspicious finding. LEFT BREAST: No significant suspicious finding. RECOMMENDATIONS: ROUTINE MAMMOGRAM AND CLINICAL EVALUATION IN 12 MONTHS. Dictated by: Dao Spence DO on 03/12/2025 at 15:56 Approved by: Dao Spence DO on 03/12/2025 at 15:56
--- OUTSIDE RECORDS SUMMARY | 2025-03-12 11:34 | XMS_ITS | CCD ---
Author Organization [facility] Care Team Providers Care Shipping Room Helper Name Role Phone DBOUK, TAREK A Unavailable [...] DR BERKOWITZ Admitting Unavailable DEFRANCEWOO Referring Unavailable DEFRANCEWOO Primary Care Unavailable DEFRANCEWOO Referring Unavailable DEFRANCEWOO Primary Care Unavailable DEFRANCEWOO Referring Unavailable DEFRANCEWOO Primary Care Unavailable Woo Lerner Primary Care Provider Woo Lerner Primary Care Provider WOO LERNER Primary Care Unavaila ble DE CHRISTINAWOO Referring Unavaila ble DI ADELITA, CELI Attending Unavailable WOO LERNER Primary Care Unavaila SUSHILA Grewal Attending Unavailable SUSHILA KEANE Referring Unavailable WOO LERNER Primary Care Unavaila SUSHILA Grewal Referring Unavailable Defrance Woo GONZALEZ Primary Care Provider Gli Chester MD Primary Care Provider ORLANDO LINDSEY Referring Unavailable ORLANDO LINDSEY Referring Unavailable LEX TREADWELL Attending Unavailable MIREILLEBELLO Referring Unavailable SCHLACHTCARL BALL Attending Unavailable NEMO, GIL Referring Unavailable NEMO, GIL Primary Care Unavailable NEMO, GIL Attending Unavailable NEMO, GIL Referring Unavailable NEMO, GIL Primary Care Unavailable CARL WOLF Attending Unavailable NEMO, GIL Referring Unavailable NEMO, GIL Primary Care Unavailable NEMO, GIL Attending Unavailable DEFWOO COBOS Referring Unavailable NEMO, GIL Primary Care Unavailable Allergies Allergy Classification Reported Allergen(s) Allergy Type Date of Onset Reaction(s) Facility (1 source) 76506,00 Drug allergy (disorder) 10-23-2016 [facility] Repository Medications Current Medications Medication Drug Class(es) Dates Sig (Normalized) Sig (Original) Ascorbic Acid (4 sources) Vitamin C ascorbic acid (V ITAMIN C ORAL) Take by mouth once daily. Active ascorbic acid (V ITAMIN C ORAL) Take by mouth once daily. 0 Active Comment on above: Take by mouth once d aily. aspirin 81 mg delayed release oral tablet (17 sources) Platelet Aggregation Inhibitor, Nonsteroidal Anti-inflammatory Drug Start: 07-04-19 24 take 1 tablet by mouth in the morning aspirin 81 mg Take 1 tablet (81 mg total) by mouth in the morning. 08/02/2023 Active Comment on above: Take by mouth every 24 hours. atorvastatin 20 mg oral tablet (5 sources) HMG-CoA Reductase Inhibitor Start: 06-13-20 24 End: 08-19-19 26 take 1 tablet by mouth in the morning atorvastatin (LIPITOR) 20 mg tablet Take 1 tablet (20 mg total) by mouth in the morning. 06/13/2024 08/19/2025 Active Ca Carb-Mag Cmb 11-D3-Zn Sulf [phone] hv-edyq-zh-mg tab (4 sources) Ca Carb-Mag Cmb 11-D3-Zn Sulf [phone] oc-nqpj-pf-mg tab Take by mouth once daily. Active Ca Carb-Mag Cmb 11-D3-Zn Sulf [phone] fi-spwp-tz-mg tab Take by mouth once daily. 0 Active Comment on above: Take by mouth once d aily. WOQBDUC-HFQYNELAE-NUQ C ORAL (15 sources) take 1 capsule by mouth in the evening KSMFXXY-HQPJELTOH-EXW C ORAL Take 1 capsule by mouth in the evening. Active take 1 capsule by mo uth in the evening HFDQEDZ-OSLRHXNJQ-VIOQ ORAL Take 1 capsu le by mouth in the evening. 0 Active cetirizine hydrochloride 10 mg oral tablet (4 sources) Histamine-1 Receptor Antagonist Start: 01-14-2025 take 1 tablet by mouth in the morning cetirizine (ZyrTEC) 10 mg tablet Take 1 tablet (10 mg total) by mouth in the morning. 30 tablet 2 01/14/2025 Active cholecalciferol, vitamin D3, (VITAMIN D3 ORAL) (15 sources) take 2 capsules by mouth in the morning cholecalciferol, vitamin D3, (VITAMIN D3 ORAL) Take 2 capsules by mouth in the morning. Active take 2 capsules by m outh in the morning cholecalciferol, vitamin D3, (VITAMIN D3 ORAL) Take 2 capsules by mouth in the morning. 0 Active clopidogrel 75 mg oral tablet (7 sources) P2Y12 Platelet Inhibitor Start: 08-02-2023 End: 12-25-2023 take 1 tablet by mouth once daily in the morning clopidogrel (PLAVIX) 75 mg tablet Take 75 mg by mouth every morning. 09/01/2023 Active Comment on above: Take 75 mg by mouth every morning. docosahexaenoic acid/epa (FISH OIL ORAL) (15 sources) take 1 capsule by mouth in the morning docosahexaenoic acid/epa (FISH OIL ORAL) Take 1 capsule by mouth in the morning. Osteo Bi-flex. Active take 1 capsule by mouth in the m orning docosahexaenoic acid/epa (FISH OIL ORAL) Take 1 capsule by mouth in the morning. Osteo Bi-flex. 0 Active escitalopram 10 mg oral tablet (20 sources) Serotonin Reuptake Inhibitor Start: 08-02-2023 End: [...] morning. 30 tablet 5 07/05/2023 08/02/2023 Discontinued Comment on above: Take 20 mg by mouth every morning. ferrous sulfate (14 sources) ferrous sulfate 325 mg (65 mg iron) tablet Take 325 mg by mouth as needed. Active ferrous sulfate (IRON ORAL) Take by mouth. Active Comment on above: Take 325 mg by mouth as needed. fluticasone propionate 0.05 mg/actuat metered dose nasal spray (4 sources) Corticosteroid Start: 01-15-20 take 1 spray(s) nasal route in the morning fluticasone propionate (FLONASE) 50 mcg/actuation nasal spray Administer 1 spray into each nostril in the morning. 15.8 mL 2 01/14/2025 Active Glucosamine (4 sources) glucosamine HCl (GLUCOSAMINE, BULK, MISC) Take by mouth once daily. Active glucosamine HCl (GLUCOSAMINE, BULK, MISC) Take by mouth once daily. 0 Active Comment on above: Take by mouth once d aily. losartan potassium 25 mg oral tablet (2 sources) Angiotensin 2 Receptor Sebastián Start: 03-03-2025 take 0.5 tablet by mouth in the morning losartan (COZAAR) 25 mg tablet Indications: Cough due to KARISSA inhibitor Take 0.5 tablets (12.5 mg total) by mouth in the morning. 15 tablet 11 03/03/2025 Active Magnesium (10 sources) MAGNESIUM ORAL Take by mouth. Active 24 hr mirabegron 50 mg extended release oral tablet (19 sources) beta3-Adrenergic Agonist Start: 06-04-2023 take 1 tablet by mouth every twenty-four hours in the morning MYRBETRIQ 50 mg tablet extended release 24 hr Take 1 tablet (50 mg total) by mouth in the morning. 06/04/2023 Active Start: 08-16-2018 take 50 mg by mouth once daily MYRBETRIQ 50 mg Tb24 Take 50 mg by mouth once daily. 08/16/2018 Active Comment on above: Take 50 mg by mouth once daily. MULTIVITAMIN ORAL (15 sources) take 1 capsule by mouth in the morning MULTIVITAMIN ORAL Take 1 capsule by mouth in the morning. Hair, Skin, and Nails. Active take 1 capsule by mouth in the m orning MULTIVITAMIN ORAL Take 1 capsule by mouth in the morning. Hair, Skin, and Nails. 0 Active pantoprazole 40 mg delayed release oral tablet (8 sources) Proton Pump Inhibitor Start: 12-17-2024 End: 01-14-2025 take 1 tablet by mouth in the morning pantoprazole (PROTONIX) 40 mg EC tablet Take 1 tablet (40 mg total) by mouth in the morning. 30 tablet 1 12/17/2024 01/14/2025 Discontinued Start: 2023 End: 12-25-2023 take 1 tablet by mouth once daily pantoprazole (PROTONIX) 40 mg EC tablet take 1 tablet by mouth once daily 90 tablet 1 07/05/2023 Active vit A/vit C/vit E/zinc/coppe r (PRESERVISION AREDS ORAL) (15 sources) take 1 capsule by mo uth in the morning vit A/vit C/vit E/zinc/copper (PRESERVISION AREDS ORAL) Take 1 capsule by mouth in the morning. Active take 1 capsule by mouth in the m orning vit A/vit C/vit E/zinc/copper (PRESERVISION AREDS ORAL) Take 1 capsule by mouth in the morning. 0 Active Vitamin B Complex (14 sources) vitamin B comple x (B COMPLEX 1 ORAL) Take by mouth once daily. Active vitamin B comple x (B COMPLEX ORAL) Take by mouth. Active vitamin B comple x (B COMPLEX 1 ORAL) Take by mouth once daily. 0 Active Comment on above: Take by mouth once d aily. Completed/Discontinued Medications Medication Drug Class(es) Dates Sig (Normalized) Sig (Original) lisinopril 5 mg oral tablet (4 sources) Angiotensin Converting Enzyme Inhibitor Start: 10-13-2024 End: 10-13-2025 lisinopriL (PRINIVIL,ZESTRIL) 5 mg tablet Take 1 tablet (5 mg total) by mouth. 10/13/2024 03/03/2025 Discontinued (Alternate therapy) naproxen 500 mg oral tablet (1 source) [...] extended release oral capsule (1 source) beta-Adrenergic Sebastián Start: 05-28-2023 End: 07-05-2023 propranolol LA (INDERAL LA) 80 mg 24 hr capsule TAKE 1 CAPSULE IN THE MORNING 90 capsule 1 05/28/2023 07/05/2023 Discontinued (Alternate therapy) sod sulf-pot chloride-mag sulf 1.479-0.188- 0.225 gram tablet (10 sources) Start: 12-31-2023 End: 03-03-2025 sod sulf-pot chloride-mag sulf 1.479-0.188- 0.225 gram tablet Indications: Rectal bleeding Please see instructional sheet given by physicians office. 24 tablet 12/31/2023 03/03/2025 Discontinued (Patient Stopped On Own) Start: 12-31-2023 sod sulf-pot c hloride-mag sulf 1.479-0.188- 0.225 gram tablet Indications: Rectal bleeding Please see instructional sheet given by physicians office. 24 tablet 12/31/2023 Active Start: 01-10-2023 End: 07-05-2023 sod sulf-pot chloride-mag herron lf 1.479-0.188- 0.225 gram tablet Indications: Rectal bleeding Please see instructional sheet given by physicians office. 24 tablet 0 01/10/2023 07/05/2023 Discontinued (Alternate therapy) Problems Active Problems Problem Classification Problem Date Documented Da te Episodic/Chronic Conduction disorders (20 sources) Left bundle-branch block, unspecified; Translations: [Presence of cardiac pacemaker] Onset: 06-14-2018 07-05-2023 Chronic Congestive heart failure; nonhypertensive (3 sources) Heart failure with mid range ejection fraction; Translations: [Chronic systolic (congestive) heart failure] Onset: 03-03-2025 10-30-2024 Chronic Disorders of lipid metabolism (10 sources) Mixed hyperlipidemia; Translations: [Mixed hyperlipidemia] Onset: 01-12-2022 Chronic E Codes: Adverse effects of medical drugs (1 source) Adverse effect of angiotensin-converti ng-enzyme inhibitors, initial encounter; Translations: [Adverse effect of angiotensin-converti ng-enzyme inhibitors, initial encounter] Onset: 03-03-2025 Episodic Genitourinary symptoms and ill-defined conditions (15 sources) Urinary incontinence; Translations: [Unspecified urinary incontinence] Onset: 12-25-2016 09-18-2022 Chronic Heart valve disorders (18 sources) Nonrheumatic mitral (valve) insufficiency; Translations: [Rheumatic mitral valve disease, unspecified] Onset: 07-16-2017 07-05-2023 Chronic Hemorrhoids (1 source) Hemorrhoids; Translations: [Other hemorrhoids] 10-30-2024 Episodic Immunizations and screening for infectious disease (3 sources) Encounter for immunization; Translations: [Encounter For Immunization] Onset: 09-03-2020 Episodic Osteoarthritis (17 sources) Bilateral primary osteoarthritis of hip; Translations: [Degenerative joint disease involving multiple joints] Onset: 03-16-2017 07-16-2017 Chronic Osteoporosis (1 source) Senile osteoporosis; Translations: [Age-related osteoporosis without current pathological fracture] 12-25-2023 Chronic Other connective tissue disease (1 source) Facial weakness; Translations: [Facial weakness] Onset: 08-30-2023 Episodic Other lower respiratory disease (4 sources) Chronic cough; Translations: [Chronic cough] Onset: 01-14-2025 12-17-2024 Episodic Other lower respiratory disease (1 source) Angiotensin-converti ng-enzyme inhibitor adverse reaction; Translations: [Cough due to KARISSA inhibitor] 03-03-2025 Episodic Other lower respiratory disease (1 source) Cough Onset: 12-17-2024 Episodic Other nutritional; endocrine; and metabolic disorders (3 sources) Unintentional weight loss; Translations: [Abnormal weight loss] 10-30-2024 Episodic Other nutritional; endocrine; and metabolic disorders (1 source) Abnormal weight loss; Translations: [Abnormal weight loss] Onset: 01-14-2025 Episodic Other screening for suspected conditions (not mental disorders or infectious disease) (5 sources) Patient encounter status; Translations: [Encounter for screening mammogram for malignant neoplasm of breast] Onset: 03-03-2025 12-25-2023 Episodic Prolapse of female genital organs (20 sources) Herniation of rectum into vagina; Translations: [Rectocele] Onset: 09-07-2017 01-22-2018 Chronic Transient cerebral ischemia (2 sources) Transient cerebral ischemic attack, unspecified; Translations: [Transient cerebral ischemia] Onset: 08-30-2023 08-02-2023 Chronic Unclassified (2 sources) MIXED INCONTINENCE URGE AND STRESS / MIXED INCONTINENCE URGE AND STRESS() Onset: 09-24-2017 Unclassified (2 sources) Unknown / UNK(Unknown) Onset: 01-11-2017 Unclassified (1 source) Other specified cough; Translations: [Other specified cough] Onset: 03-03-2025 Unclassified (1 source) Annual Exam Onset: 03-03-2025 Past or Other Problems Problem Classification Problem Date Documented Da te Episodic/Chronic Cardiac dysrhythmias (5 sources) Bradycardia, unspecified; Translations: [Bradycardia] Onset: 08-30-2023 07-05-2023 Episodic Conditions associated with dizziness or vertigo (15 sources) Benign paroxysmal positional vertigo; Translations: [Benign paroxysmal vertigo, unspecified ear] Onset: 05-05-2019 05-05-2019 Episodic Deficiency and other anemia (1 source) Iron deficiency anemia; Translations: [Other iron deficiency anemias] 12-25-2023 Episodic Gastrointestinal hemorrhage (2 sources) Rectal hemorrhage; Translations: [Hemorrhage of anus and rectum] 12-31-2023 Episodic Mood disorders (15 sources) Mood disorder; Translations: [Unspecified mood [affective] disorder] Onset: 12-20-2022 Resolved: 12-20-2022 12-20-2022 Chronic Mood disorders (15 sources) Mood disorders Onset: 07-05-2023 Resolved: 03-03-2025 07-05-2023 Other connective tissue disease (1 source) Arthrodesis status; Translations: [ARTHRODESIS STATUS] Onset: 03-16-2017 Episodic Other connective tissue disease (1 source) Transient neurological symptoms; Translations: [Other symptoms and signs involving the nervous system] 10-05-2023 Episodic Other connective tissue disease (1 source) Weakness of face muscles; Translations: [Facial weakness] 08-02-2023 Episodic Other fractures (7 sources) Multiple fractures of pelvis without disruption of pelvic ring, subsequent encounter for fracture with routine healing; Translations: [Fracture of unspecified parts of lumbosacral spine and pelvis, subsequent encounter for fracture with routine healing] Onset: 01-11-2017 Episodic Other lower respiratory disease (15 sources) Dyspnea; Translations: [Shortness of breath] Onset: 06-14-2018 06-14-2018 Episodic Other lower respiratory disease (2 sources) Other forms of dyspnea; Translations: [Other forms of dyspnea] Onset: 07-07-2024 Episodic Other nervous system disorders (1 source) Perioral numbness; Translations: [Anesthesia of skin] 10-05-2023 Episodic Other nutritional; endocrine; and metabolic disorders (1 source) Weight loss Onset: 10-30-2024 Episodic Residual codes; unclassified (1 source) Family history of cancer of colon; Translations: [Family history of malignant neoplasm of digestive organs] 12-31-2023 Episodic Unclassified (2 sources) MIXED INCONTINENCE URGE AND STRESS; Translations: [mixed incontinence urge and stress] Onset: 09-24-2017 Unclassified (15 sources) Onset: 11-22-2018 11-22-2018 Results Test Name Value Interpretation Reference Range Facility 36on 10-13-2024 36 Regarding lab result s and echo from 09/23/2024 MD Genoveva Solis MA Labs are normal but because her echo showed mild reduction in left ventricular systolic function I would like to start her on small dose of lisinopril 5 mg daily and recheck BMP in about 1 week Spoke to patient informed patient of her Lab and Echo results. Labs sent to scheduling Lisinopril sent to [facility] 36on 10-03-2024 36 Patient called for lab results. I informed her BNP was normal, so Dr. Treadwell most likely would not want to start her on diuretics. She said she was feeling pretty good. No LE edema. She does get winded when she's cleaning her horses, but sits down for a minute and she feels better. Did you want to make any changes? Please advise. Thanks. [facility] Telephoneon 09-17-2024 Telephone [id number] Luma Davey 1955 F Date Provider Department Center 09/17/2024 895-DORY ORTIZ SUKHI Foster Family History Problem Relation Age of Onset Other Mother Stroke Mother Stroke Father Valvular heart disease Father Atrial fibrillation Father Family Status - Relation Status Age at Mother Father [facility] Office Visiton 07-07-2024 Follow-up visit [id number] Luma Davey 1955 F Date Provider Department Center 07/07/2024 [id number] TREADWELL Family History Problem Relation Age of Onset Other Mother Stroke Mother Stroke Father Valvular heart disease Father Atrial fibrillation Father Family Status - Relation Status Age at Mother Father Level of Service:69352 OR OFFICE/OUTPATIENT ESTABLISHED MOD MDM 30 MIN Reason for Visit and Comments: Palpitations [618848] - Denies palpitations. Bradycardia [873440] - Scheduled for routine device interrogation next month. Abnormal ECG [293] Hyperlipidemia [182] - She was started on atorvastatin last month and is tolerating it well so far. Shortness of Breath [002965] - More lately since she's fighting a cold right now. [facility] 36on 06-10-2024 36 Just spoke with patient [...] provided her with the number to the [place] office so she can contact us in the future. Thanks. [facility] 36on 06-04-2024 36 Patient is calling t o report symptoms she has been having x2 weeks. She complains of chest fullness with difficulty breathing at times and sour stomach with increased bowel movements after meals. She is unsure if this is related to her cardiac device. She has not yet addressed concerns with PCP. Last seen at [facility] 07/2023. She would like a call to discuss [phone]. Thank you This phone message was created by the Ambulatory float staff. If you need lab support service tech follow up regarding this patient, please make your appropriate clinic staff member aware. Thank you. [facility] Telephoneon 06-04-2024 Telephone [id number] Luma Davey Yao 1955 F Date Provider Department Center 06/04/2024 [facility] Family History Problem Relation Age of Onset Other Mother Stroke Mother Stroke Father Valvular heart disease Father Atrial fibrillation Father Family Status - Relation Status Age at Mother Father [facility] 36on 02-20-2024 36 Regarding labs from 01/12/2024: [...] sent her lab orders in the mail. [facility] Colonoscopyon 02-20-2024 [facility] Surgical PathologyOrdered By : oNemi Sanches on 02-20-2024 [facility] CNOVon 10-05-2023 CNOV Office Visit (NECVS8 ) LUMA DAVEY ([id number]) 1955 F Date Time Provider Department 10/05/23 [...] via US mail. PCP Woo Lerner MD [address] [place] [address] CEREBROVASCULAR HISTORY Luma Davey is a very [...] detected 06/16/23: [facility]. Once she had loaded the horse, she had new onset dizziness (spinning), no nausea, and fell to the left twice, no LOC, no injury to head or other body part. Echo fine right after. Drove home with her horse trailer and felt fine. 06/18/23: Called her PCP and was told to go to the ED. Went to the ED and was then transferred to [facility] Diagnosed with Left BBB bundle [...] of her siblings have a h/o stroke. Antiplatelets/Anticoa gulants: Aspirin and Clopidogrel Residual Deficits: No residual deficits Interval: Has been doing well. No new symptoms. Antiplatelets/anticoa gulation: ASA 81 mg daily, Plavix 75 mg [...] once daily. Ca Carb-Mag Cmb 11-D3-Zn Sulf [phone] rg-nxsh-gq-mg tab Take by mouth once daily. No [...] No noted (more content not included)... Normal [facility] CNPNon 10-03-2023 CNPN Telephone (NECVS8) LUMA DAVEY ([id number]) 1955 F Date Time Provider Department 10/03/23 CELI RODRIGUES NECVS8 During your visit today, we recorded the following information about you: Nuria Reed 07/04/2024 9:11 PM Addendum OSH imaging/records received from [facility]: October 03, 2023 -Medical Hx AND Imaging Reports available in Care Everywhere. Allergies As of Date: 10/03/2023 (No Known Allergies) Date Reviewed: 09/24/2023 Reviewed by: Javier Ospina MA - Fully Assessed Reason for Visit: [...] daily. - Ca Carb-Mag Cmb 11-D3-Zn Sulf [phone] on-exjk-zl-mg tab Take by mouth once daily. Problem List As Of Date: 10/03/2023 (None) Encounter Status:Closed by NURIA REED on 07/04/24 Normal [facility] CNOVon 09-24-2023 CNOV Office Visit (KIMBER ) LUMA DAVEY ([id number]) 1955 F Date Time Provider Department 09/24/23 12:30 PM SUSHILA KEANE During your visit today, we recorded the following information about you: Pulse Blood pressure Weight Height 89/minute 144/77 73.9 kg 1.66 m Sushila Keane MD 09/27/2023 9:48 PM Signed [facility] Department of Cardiovascular Medicine SECTION OF CARDIOVASCULAR IMAGING OUTPATIENT VISIT DATE September 24, 2023 OUTPATIENT VISIT TYPE NEW (>3yr since last seen) CHIEF COMPLAINT: Further evaluation of valve disease HISTORY OF PRESENT ILLNESS: Ms. Davey is a 68 year old female from [place], [place] who presents for follow-up. Since last [...] once daily. Ca Carb-Mag Cmb 11-D3-Zn Sulf [phone] ow-evzg-zi-mg tab Take by mouth once daily. naproxen [...] is a 68 year old female from [place], [place] who presents for follow-up. Since last [...] CONTACT INFORMATION: Sushila Keane MD, PhD, [facility] [employer] lab technician, [facility], Staff, Section of Cardiovascular Imaging, Co-Director Cardio-Oncology Center, Wrist Hemmer of the Echocardiographic Lab, [facility] Dept. Of Cardiovascular Medicine, [address] / [address] [place], [place] [address] Appt: [phone] Referring Provider: SUSHILA KEANE [[id number]] Allergies As of Date: 09/24/2023 (No Known Allergies) Date Reviewed: 09/24/2023 Reviewed by: Javier Ospina MA - Fully Assessed Primary Visit Diagnosis:LBBB (left bundle branch block) [I44.7] Other Visit Diagnoses:Pacemaker [Z95.0] Nonrheumatic mitral valve regurgitation [I34.0] Order(s):CARDIOVASCUL AR MEDICINE OP FOLLOW UP APPT ORDER [[id number]] Order #: [id number]: [id number] FUTURE Prescriptions as of 09/27/2023 - [...] once daily (more content not included)... Normal [facility] ECG COMPLETEon 09-24-2023 ECG COMPLETE Ventricular Rate : 8 0 BPM Atrial Rate : 80 BPM P-R Interval : 192 ms QRS Duration : 136 ms Q-T Interval : 446 ms QTC Calculation(Bazett) : 514 ms Calculated P [place] : 58 degrees Calculated R [place] : -18 degrees Calculated T [place] : 27 degrees ATRIAL-PACED RHYTHM COMPLETE LEFT BUNDLE BRANCH BLOCK ABNORMAL ECG Confirmed by BABATUNDE WEAVER MD ([id number]) on 10/14/2023 6:43:06 PM NAME : LUMA DAVEY PID : [id number] : 1955 Gender : Female Race : ORD : [id number] Procedure Date : Sep 24 2023 12:35:33 Edit Date : Oct 14 2023 18:43:10 Diagnosis: ATRIAL-PACED RHYTHM COMPLETE LEFT BUNDLE BRANCH BLOCK ABNORMAL ECG Confirmed by BABATUNDE WEAVER MD ([id number]) on 10/14/2023 6:43:06 PM Test Reason : Location : 314 : J14 J1-4 Overread By : BABATUNDE WEAVER MD Edited By : BABATUNDE WEAVER MD Referred By : SUSHILA KEANE Acquired by : MONA KRUSE Normal [facility] MR BRAIN WO CONTon 4 MR BRAIN [...] George MD on 08/31/2023 7:12 AM Normal [facility] CBC AUTO DIFFon 01-12-2022 BASO # 0.0 103/ul Normal 0.0-0.1 [facility] Comment on above: Performed By: #### C BC #### [facility] [address] [place] [address] Dr. Anurag Solano Basophils/100 WBC (Bld) 0.4 % Normal 0.2-2.0 [facility] Comment on above: Performed By: #### C BC #### [facility] [address] [place] [address] Dr. Anurag Solano EO # 0.2 103/ul Normal 0.0-0.7 [facility] Comment on above: Performed By: #### C BC #### [facility] [address] [place] [address] Dr. Anurag Solano Eosinophils/100 WBC (Bld) 2.9 % Normal 0.9-7.0 [facility] Comment on above: Performed By: #### C BC #### [facility] [address] [place] [address] Dr. Anurag Solano Erythrocyte distribution width (RBC) [Ratio] 12.4 % Normal 11.0-15.0 [facility] [facility] Comment on above: Performed By: #### C BC #### [facility] [address] [place] [address] Dr. Anurag Solano Hematocrit (Bld) [Volume fraction] 41.0 % Normal 36.0-48.0 [facility] Comment on above: Performed By: #### C BC #### [facility] [address] [place] [address] Dr. Anurag Solano Hemoglobin (Bld) [Mass/Vol] 13.3 g/dL Normal 12.0-16.0 [facility] Comment on above: Performed By: #### C BC #### [facility] [address] [place] [address] Dr. Anurag Solano IG # 0.02 10e3/ul Normal 0.00-0.03 [facility] Comment on above: Performed By: #### C BC #### [facility] [address] [place] [address] Dr. Anurag Solano IG % 0.3 % Normal 0.0-0.5 [facility] Comment on above: Performed By: #### C BC #### [facility] [address] [place] [address] Dr. Anurag Solano LYMPH # 2.2 103/ul Normal 1.2-3.8 [facility] Comment on above: Performed By: #### C BC #### [facility] [address] [place] [address] Dr. Anurag Solano Lymphocytes/100 WBC (Bld) 30.1 % Normal 20.5-60.0 [facility] Comment on above: Performed By: #### C BC #### [facility] [address] [place] [address] Dr. Anurag Solano MANUAL DIFF REQ NO Normal [facility] Comment on above: Performed By: #### C BC #### [facility] [address] [place] [address] Dr. Anurag Solano MCH (RBC) [Entitic mass] 29.8 pg Normal 26.7-34.0 [facility] Comment on above: Performed By: #### C BC #### [facility] [address] [place] [address] Dr. Anurag Solano MCHC (RBC) [Mass/Vol] 32.4 g/dL Normal 29.9-35.2 [facility] Comment on above: Performed By: #### C BC #### [facility] [address] [place] [address] Dr. Anurag Solano MCV (RBC) [Entitic vol] 91.7 fL Normal 81.0-99.0 [facility] Comment on above: Performed By: #### C BC #### [facility] [address] [place] [address] Dr. Aunrag Solano MONO # 0.6 103/ul Normal 0.3-0.8 [facility] Comment on above: Performed By: #### C BC #### [facility] [address] [place] [address] Dr. Anurag Solano Monocytes/100 WBC (Bld) 7.7 % Normal 1.7-12.0 [facility] Comment on above: Performed By: #### C BC #### [facility] [address] [place] [address] Dr. Anurag oSlano NEUT # 4.3 103/ul Normal 1.4-6.5 [facility] Comment on above: Performed By: #### C BC #### [facility] [address] [place] [address] Dr. Anurag Solano Neutrophils/100 WBC (Bld) 58.6 % Normal 43.0-75.0 [facility] Comment on above: Performed By: #### C BC #### [facility] [address] [place] [address] Dr. Anurag Solano Platelet mean volume (Bld) [Entitic vol] 9.4 fL Critically low 9.5-13.5 [facility] Comment on above: Performed By: #### C BC #### [facility] [address] [address] [address] Anurag Solano PLT 282 103/ul Normal 150-450 [facility] Comment on above: Performed By: #### C BC #### [facility] [address] [address] [address] Anurag Solano RBC 4.47 106/ul Normal 4.20-5.40 [facility] Comment on above: Performed By: #### C BC #### [facility] [address] [address] [address] Anurag Solano WBC 7.3 103/ul Normal 4.0-11.0 [facility] Comment on above: Performed By: #### C BC #### [facility] [address] [place] [address] Dr. Anurag Solano FREE T4on 01-12-2022 Free T4 [Mass/Vol] 0.89 ng/dL Normal 0.76-1.46 [facility] Comment on above: Performed By: #### F T4 #### [facility] [address] [place] [address] Dr. Anurag Solano LIPID PROFILEon 01-12-2022 CHOL-HDL RATIO NORM SEE BELOW [facility] Comment on above: Result Comment: 3.3 - 4.4 LOW RISK 4.4 - 7.1 AVERAGE RISK 7.1 - 11.0 MODERATE RISK >11.0 HIGH RISK Performed By: #### C MP, TSH, LIPID #### [facility] [address] [place] [address] Dr. Anurag Solano Cholesterol [Mass/Vol] 213 mg/dL Critically high <=200 [facility] Comment on above: Performed By: #### C MP, TSH, LIPID #### [facility] [address] [place] [address] Dr. Anurag Solano Cholesterol in HDL [Mass/Vol] 44 mg/dL Normal 40-60 [facility] Comment on above: Performed By: #### C MP, TSH, LIPID #### [facility] [address] [address] [address] Anurag Solano Cholesterol in LDL [Mass/Vol] 143.2 mg/dL Normal [facility] Comment on above: Performed By: #### C MP, TSH, LIPID #### [facility] [address] [address] [address] Anurag Solano Cholesterol.total/Cho lesterol in HDL [Mass ratio] 4.8 {ratio} Normal [facility] Comment on above: Performed By: #### C MP, TSH, LIPID #### [facility] [address] [address] [address] Anurag Solano HDL NORMAL > or = 60 mg/dl - LO W CARDIOVASCULAR RISK <40 mg/dl - HIGH CARDIOVASCULAR RISK Normal [facility] Comment on above: Performed By: #### C MP, TSH, LIPID #### [facility] [address] [address] [address] Anurag Solano LDL CALC NORMAL SEE BELOW Normal [facility] Comment on above: Result Comment: <100 mg/dl OPTIMAL 100 - 129 mg/dl NEAR OR ABOVE OPTIMAL 130 - 159 mg/dl BORDERLINE HIGH 160 - 189 mg/dl HIGH >190 mg/dl VERY HIGH Performed By: #### C MP, TSH, LIPID #### [facility] [address] [address] [address] Anurag Solano Triglyceride [Mass/Vol] 129 mg/dL Normal <=150 [facility] Comment on above: Performed By: #### C MP, TSH, LIPID #### [facility] [address] [address] [address] Anurag Solano VLDL CALC 25.8 mg/dL Normal [facility] Comment on above: Performed By: #### C MP, TSH, LIPID #### [facility] [address] [address] [address] Anurag Solano PROF 14(COMP METB)on 022 Albumin [Mass/Vol] 3.6 g/dL Normal 3.4-5.0 [facility] Comment on above: Performed By: #### C MP, TSH, LIPID #### [facility] [address] [address] [address] Anurag Solano Albumin/Globulin [Mass ratio] 1.1 {ratio} Normal [facility] Comment on above: Performed By: #### C MP, TSH, LIPID #### [facility] [address] [address] [address] Anurag Solano ALP [Catalytic activity/Vol] 107 U/L Normal 46-116 [facility] Comment on above: Performed By: #### C MP, TSH, LIPID #### [facility] [address] [address] [address] Anurag Solano ALT [Catalytic activity/Vol] 19 U/L Normal 14-59 [facility] Comment on above: Performed By: #### C MP, TSH, LIPID #### [facility] [address] [address] [address] Anurag Solano Anion gap [Moles/Vol] 8.3 mmol/L Normal [facility] Comment on above: Performed By: #### C MP, TSH, LIPID #### [facility] [address] [address] [address] Anurag Solano AST [Catalytic activity/Vol] 17 U/L Normal 15-37 [facility] Comment on above: Performed By: #### C MP, TSH, LIPID #### [facility] [address] [address] [address] Anurag Solano Bilirubin [Mass/Vol] 0.3 mg/dL Normal 0.2-1.0 [facility] Comment on above: Performed By: #### C MP, TSH, LIPID #### [facility] [address] [address] [address] Anurag Solano Calcium [Mass/Vol] 8.7 mg/dL Normal 8.5-10.1 [facility] Comment on above: Performed By: #### C MP, TSH, LIPID #### [facility] [address] [address] [address] Anurag Solano Chloride [Moles/Vol] 106 mmol/L Normal 98-107 [facility] Comment on above: Performed By: #### C MP, TSH, LIPID #### [facility] [address] [address] [address] Anurag Solano CO2 [Moles/Vol] 30.3 mmol/L Normal 21.0-32.0 [facility] Comment on above: Performed By: #### C MP, TSH, LIPID #### [facility] [address] [address] [address] Anurag Solano Creatinine [Mass/Vol] 1.16 mg/dL Critically high 0.55-1.02 [facility] Comment on above: Performed By: #### C MP, TSH, LIPID #### [facility] [address] [address] [address] Anurag Solano EGFR-AF GUYANESE 56 mL/min/1.73m2 Critically low >=60 [facility] Comment on above: Performed By: #### C MP, TSH, LIPID #### [facility] [address] [address] [address] Anurag Solano EGFR-NON AF GUYANESE 47 mL/min/1.73m2 Critically low >=60 [facility] Comment on above: Performed By: #### C MP, TSH, LIPID #### [facility] [address] [address] [address] Anurag Solano Globulin (S) [Mass/Vol] 3.3 g/dL Normal [facility] Comment on above: Performed By: #### C MP, TSH, LIPID #### [facility] [address] [address] [address] Anurag Solano Glucose [Mass/Vol] 105 mg/dL Normal 74-106 [facility] Comment on above: Performed By: #### C MP, TSH, LIPID #### [facility] [address] [address] [address] Anurag Solano Potassium [Moles/Vol] 4.6 mmol/L Normal 3.5-5.1 [facility] Comment on above: Performed By: #### C MP, TSH, LIPID #### [facility] [address] [address] [address] Anurag Solano Protein [Mass/Vol] 6.9 g/dL Normal 6.4-8.2 [facility] Comment on above: Performed By: #### C MP, TSH, LIPID #### [facility] [address] [address] [address] Anurag Solano Sodium [Moles/Vol] 140 mmol/L Normal 136-145 [facility] Comment on above: Performed By: #### C MP, TSH, LIPID #### [facility] [address] [address] [address] Anurag Solano Urea nitrogen [Mass/Vol] 21.0 mg/dL Critically high 7.0-18.0 [facility] Comment on above: Performed By: #### C MP, TSH, LIPID #### [facility] [address] [address] [address] Anurag Solano Urea nitrogen/Creatinine [Mass ratio] 18.1 mg/mg Normal [facility] Comment on above: Performed By: #### C MP, TSH, LIPID #### [facility] [address] [address] [address] Anurag Solano TSHon 01-12-2022 TSH 4.450 uIU/mL Critically high 0.358-3.740 [facility] Comment on above: Performed By: #### C MP, TSH, LIPID #### [facility] [address] [place] [address] Dr. Anurag Solano Basic Metabolic Panelon 03-2 Anion gap 8 mmol/L Normal 7-13 [facility] Calcium 10.0 mg/dL Normal 8.6-10.2 [facility] Chloride 103 mmol/L Normal 98-107 [facility] CO2 30 mmol/L Critically high 22-29 [facility] Creatinine 0.88 mg/dL Normal 0.50-0.90 [facility] eGFR (black) mL/min/{1.73_m2} Normal >60 [facility] Comment on above: Result Comment: >60 mL/min/1.73m2 EGFR, calc. for ages 18 and older using theMDRD formula (not corrected for weight), is valid for stablerenal function. eGFR (MDRD) mL/min/{1.73_m2} Normal >60 [facility] Comment on above: Result Comment: >60 mL/min/1.73m2 EGFR, calc. for ages 18 and older using theMDRD formula (not corrected for weight), is valid for stablerenal function. Glucose mass conc 99 mg/dL Normal 74-109 [facility] Potassium molar conc 4.9 mmol/L Normal 3.5-5.1 [facility] Sodium 141 mmol/L Normal 132-144 [facility] Urea nitrogen 22 mg/dL Normal 8-23 [facility] CBC With Platelet No Differe ntialon 09-24-2017 Erythrocyte distribution width Auto Ratio (RBC) 13.2 % Normal 11.5-14.5 [facility] Erythrocytes (RBC) 4.37 10*6/uL Normal 4.20-5.40 [facility] Hematocrit (HCT) 39.9 % Normal 37.0-47.0 [facility] Hemoglobin mass conc (Bld) 13.4 g/dL Normal 12.0-16.0 [facility] MCH 30.6 pg Normal 27.0-31.3 [facility] MCHC mass conc (RBC) 33.5 % Normal 33.0-37.[address] [facility] MCV 91.4 fL Normal 82.0-100.0 [facility] Platelets 256 10*3/uL Normal 130-400 [facility] WBC (Leukocytes) 7.3 10*3/uL Normal 4.8-10.8 [facility] Extra Tube, Blood Bankon Bilirubin (total) PATIENT: PETAR VILLALOBOS LOC: [facility] BILL# : [id number] : 1955 SEX: FORDERED BY: SHAKIR FERMIN ORDERED : 09/24/2017 14:13 COLLECTED: 09/24/2017 13:52ORDER : [id number] RECEIVED : 09/24/2017 13:52 T EST NAME RESULT UNITS RANGES ABN FL STExtra Tube, Blood Bank ADEEL F Normal [facility] RBC LRon 09-24-2017 Erythrocytes (RBC) PATIENT: PETAR VILLALOBOS LOC: [facility] BILL# : [id number] : 1955 SEX: FORDERED BY: SHAKIR FERMIN ORDERED : 09/26/2017 13:35 COLLECTED: 09/24/2017 13:52ORDER : [id number] RECEIVED : 09/24/2017 13:52 T EST NAME RESULT UNITS RANGES ABN FL STRBC LR [id number] RBC LR W0 F [facility] Type and Screen Capture 3 sc rn cellon 09-24-2017 Bilirubin (total) PATIENT: PETAR VILLALOBOS LOC: [facility] BILL# : [id number] : 1955 SEX: FORDERED BY: SHAKIR FERMIN ORDERED : 09/24/2017 11:58 COLLECTED: 09/24/2017 13:52ORDER : [id number] RECEIVED : 09/24/2017 13:52 T EST NAME RESULT UNITS RANGES ABN FL STABORH Capture O POS FAntibody 3 Cell Scrn Captu NEG F Normal [facility] Culture, Urineon 08-10-2017 Culture, Urine ORDERED BY: LINDA SCHILLING: Urine Clean Catch COLLECTED: 08/10/17 14:46ANTIBIOTICS AT ADEEL.: RECEIVED : 08/10/17 15:13Culture, Urine FINAL 08/12/17 07:48 No growth 24 hours Normal [facility] Urinalysis, reflex to micros copicon 08-10-2017 Bilirubin Ql (U) Negative Normal Negative [facility] Urine, clarity CLOUDY Abnormal Clear [facility] Urine, color Yellow Normal [facility] Urine, glucose presence Negative Normal Negative [facility] Urine, hemoglobin presence LARGE Abnormal Negative [facility] Urine, ketones presence Negative Normal Negative [facility] Urine, leukocyte esterase presence Negative Normal Negative [facility] Urine, nitrite presence Negative Normal Negative [facility] Urine, pH 5.0 [pH] Normal 5.0-9.0 [facility] Urine, protein presence Negative Normal Negative [facility] Urine, specific gravity 1.031 Normal 1.005-1.03 [facility] Urine, urobilinogen 0.2 {Jigar'U}/dL Normal < 2.0 [facility] Urine Microscopicon 08-10-19 18 Urine, bacteria in sediment Many Normal [facility] Urine, epithelial cells presence in sediment 3-5 Normal [facility] Urine, erythrocytes 10-20 Abnormal 0-2 [facility] Urine, leukocytes 0-2 Normal 0-5 [facility] PELVIS 1 OR 2 VWSon 03-16-20 17 PELVIS 1 OR 2 VWS [facility] [place] [address] Patient Name: LUMA DAVEY : 1955Sex: FAge: Race: WhiteMRN: [id number]. Location: 84Patient Status: Date: 03/16/2017 11:00:00 AMCompleted Date: 03/16/2017 11:26 AMRequesting Provider: MAXIME OSPINA Attending Provider: Report Copy To: Signs & Symptoms: S32.9XXD Fx unsp parts of lumbosacr spin \EANDE\ pelv, 7thD [id number]: AthenaComments: , , Views (X-RAY, PELVIS): Radiologic Protocol , , , Ordering Provider - MAXIME OSPINA PA-C , Exam: PELVIS 1 OR 2 VWSAccession #: [id number] PEL VIS 1 OR 2 VWS 03/16/2017 11:26 AM EDT SIGNS AND SYMPTOMS: S32.9XXD Fx unsp parts of lumbosacr spin \EANDE\ pelv, 7thD I10 TECHNOLOGIST COMMENTS: History of pelvic surgery 10/24/2016. Ortho follow up. QUESTION FOR THE RADIOLOGIST: , , Views (X-RAY, PELVIS): Radiologic Protocol , , , Ordering Provider Otto OSPINA PA-C , PROTOCOL: AP(PA) view was obtained. 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 Transcribed by: [email or web address], User Resident: Electronically Signed by: ADDY HERNANDEZ @ 03/16/2017 02:12 PM Normal [facility] Comment on above: Order Comment: , , V iews (X-RAY, PELVIS): Radiologic Protocol , , , Ordering Provider - MAXIME OSPINA PA-C , PELVIS 1 OR 2 [facility] 02-24-20 17 PELVIS 1 OR 2 [facility] [address] [place] [id number] Patient Name: LUMA DAVEY : 1955Sex: FAge: Race: WhiteMRN: [id number]. Location: 84Patient Status: Date: 02/23/2017 9:15:00 AMCompleted Date: 02/23/2017 09:24 AMRequesting Provider: MAXIME OSPINA Attending Provider: Report Copy To: Signs & Symptoms: S32.9XXD Fx unsp parts of lumbosacr spin \EANDE\ pelv, 7thD G06Gccolzp: AthenaComments: , , Views (X-RAY, PELVIS): AP , , , Ordering Provider - MAXIME OSPINA PA-C , Exam: PELVIS 1 OR 2 VWSAccession #: [id number] PEL VIS 1 OR 2 VWS 02/23/2017 9:24 AM EDT SIGNS AND SYMPTOMS: S32.9XXD Fx unsp parts of lumbosacr spin \EANDE\ pelv, 7thD I10 TECHNOLOGIST COMMENTS: Ortho follow up. Patient complains of pain in pelvis and in her tailbone when sitting. History of pelvis surgery on 10/24/2016. QUESTION FOR THE RADIOLOGIST: , , Views (X-RAY, PELVIS): AP , , , Ordering Provider - MAXIME KAN-C , PROTOCOL: AP(PA) view was obtained. COMPARISON: January 11, 2017 FINDINGS: Soft tissues:Unchanged Bones:Unchanged Joints:Unchanged IMPRESSION: Stable plate fixation across symphysis pubis with residual widening of approximately 15 mm and unchanged sclerosis along the SI joints Electronically signed by:Addy Hernandez. Transcribed by: [email or web address], User Resident: Electronically Signed by: ADDY HERNANDEZ @ 02/23/2017 01:09 PM Normal [facility] Comment on above: Order Comment: , , V iews (X-RAY, PELVIS): AP , , , Ordering Provider Otto OSPINA PA-C , PELVIS 1 OR 2 VWSon 01-12-20 17 PELVIS 1 OR 2 S [facility] [address] [place] [address] Patient Name: LUMA DAVEY : 1955Sex: FAge: Race: WhiteMRN: [id number]. Location: 84Patient Status: Date: 01/11/2017 1:25:00 PMCompleted Date: 01/11/2017 01:31 PMRequesting Provider: MAXIME OSPINA Attending Provider: Report Copy To: Signs & Symptoms: S32.9XXD Fx unsp parts of lumbosacr spin \EANDE\ pelv, 7thD G45Gevirlh: AthenaComments: , , Views (X-RAY, PELVIS): Radiologic Protocol , , , Ordering Provider - MAXIME OSPINA PA-C , Exam: PELVIS 1 OR 2 VWSAccession #: [id number] PEL VIS 1 OR 2 VWS 01/11/2017 1:31 PM [...] diastases. Electronically signed by:Aaron Cain. Transcribed by: [email or web address], User Resident: Electronically Signed by: AARON CAIN @ 01/11/2017 03:00 PM Normal [facility] Comment on above: Order Comment: , , V iews (X-RAY, PELVIS): Radiologic Protocol , , , Ordering Provider - MAXIME OSPINA PA-C , Vital Signs Date Time Vital Sign Value Performing Clinician Facility 03-03-2025 15:28-0400 Body height 166.4 cm Gil Chester MD Work Phone: [facility] 03-03-2025 15:28-0400 Body mass index (BMI) [Ratio] 25.4 kg/m2 Gil Chester MD Work Phone: [facility] 03-03-2025 15:28-0400 Body weight 70.31 kg Gil Chester MD Work Phone: [facility] 03-03-2025 15:28-0400 Diastolic blood pressure 62 mm[Hg] Gil Chester MD Work Phone: [facility] 03-03-2025 15:28-0400 Heart rate 89 /min Gil Chester MD Work Phone: [facility] 03-03-2025 15:28-0400 Respiratory rate 18 /min Gil Chester MD Work Phone: [facility] 03-03-2025 15:28-0400 SaO2% (BldA) [Mass fraction] 98 % Gil Chester MD Work Phone: [facility] 03-03-2025 15:28-0400 Systolic blood pressure 120 mm[Hg] Gil Chester MD Work Phone: [facility] 01-14-2025 09:38-0400 Body mass index (BMI) [Ratio] 24.42 kg/m2 Carl HODGSON Work Phone: [facility] 01-14-2025 09:38-0400 Body weight 67.59 kg Carl Cubaer 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 Work Phone: [facility] 01-14-2025 09:38-0400 Diastolic blood pressure 62 mm[Hg] Carl Schlachter 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 Work Phone: [facility] 01-14-2025 09:38-0400 Heart rate 83 /min Carl Schlachter 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 Work Phone: [facility] 01-14-2025 09:38-0400 Respiratory rate 16 /min Carl Schlachter 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 Work Phone: [facility] 01-14-2025 09:38-0400 SaO2% (BldA) [Mass fraction] 98 % Carl Schlachter 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 Work Phone: [facility] 01-14-2025 09:38-0400 Systolic blood pressure 120 mm[Hg] Carl Denzelchter 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 Work Phone: [facility] 12-17-2024 13:28-0400 Body mass index (BMI) [Ratio] 24.42 kg/m2 Carl Schlachter 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 Work Phone: [facility] 12-17-2024 13:28-0400 Body weight 67.59 kg Carl Mahoneychter 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 Work Phone: [facility] 12-17-2024 13:28-0400 Diastolic blood pressure 58 mm[Hg] Carl Schlachter 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 Work Phone: [facility] 12-17-2024 13:28-0400 Heart rate 98 /min Carl Schlachter 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 Work Phone: [facility] 12-17-2024 13:28-0400 Respiratory rate 16 /min Carl Schlachter 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 Work Phone: [facility] 12-17-2024 13:28-0400 SaO2% (BldA) [Mass fraction] 97 % Carl Wolf 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 Work Phone: [facility] 12-17-2024 13:28-0400 Systolic blood pressure 112 mm[Hg] Carlra Cubajames 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 Work Phone: [facility] 10-30-2024 14:36-0400 Body mass index (BMI) [Ratio] 25.07 kg/m2 Gil Chester MD Work Phone: [facility] 10-30-2024 14:36-0400 Body weight 69.4 kg Gil Chester MD Work Phone: [facility] 10-30-2024 14:36-0400 Diastolic blood pressure 70 mm[Hg] Gil Chester MD Work Phone: [facility] 10-30-2024 14:36-0400 Heart rate 89 /min Gil Chester MD Work Phone: [facility] 10-30-2024 14:36-0400 Respiratory rate 18 /min Gil Chester MD Work Phone: [facility] 10-30-2024 14:36-0400 SaO2% (BldA) [Mass fraction] 98 % Gil Chester MD Work Phone: [facility] 10-30-2024 14:36-0400 Systolic blood pressure 140 mm[Hg] Gil Chester MD Work Phone: [facility] 12-31-2023 11:07-0400 Body mass index (BMI) [Ratio] 26.71 kg/m2 Ilana Packer 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 Work Phone: [facility] 12-31-2023 11:07-0400 Body weight 73.94 kg Ilana Packer 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 Work Phone: [facility] 12-31-2023 11:07-0400 Diastolic blood pressure 61 mm[Hg] Ilana Packer 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 Work Phone: [facility] 12-31-2023 11:07-0400 Heart rate 94 /min Ilana Packer 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 Work Phone: [facility] 12-31-2023 11:07-0400 Systolic blood pressure 142 mm[Hg] Ilana Packer 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 Work Phone: [facility] 12-25-2023 10:58-0400 Body height 166.4 cm Woo Killian MD Work Phone: [facility] 12-25-2023 10:58-0400 Body mass index (BMI) [Ratio] 26.38 kg/m2 Woo Killian MD Work Phone: [facility] 12-25-2023 10:58-0400 Body temperature 97.81 [degF] Woo Killian MD Work Phone: [facility] 12-25-2023 10:58-0400 Body weight 73.03 kg Woo Killian MD Work Phone: [facility] 12-25-2023 10:58-0400 Diastolic blood pressure 70 mm[Hg] Woo Killian MD Work Phone: [facility] 12-25-2023 10:58-0400 Heart rate 72 /min Woo Killian MD Work Phone: [facility] 12-25-2023 10:58-0400 Respiratory rate 16 /min Woo Killian MD Work Phone: [facility] 12-25-2023 10:58-0400 Systolic blood pressure 110 mm[Hg] Woo Killian MD Work Phone: [facility] 10-05-2023 09:20-0400 Body height 166 cm Celi Rodrigues MD, PhD Work Phone: [facility] 10-05-2023 09:20-0400 Body temperature 96.91 [degF] Celi Rodrigues MD, PhD Work Phone: [facility] 10-05-2023 09:20-0400 Body weight 72.58 kg Celi Rodrigues MD, PhD Work Phone: [facility] 10-05-2023 09:20-0400 Diastolic blood pressure 65 mm[Hg] Celi Rodrigues MD, PhD Work Phone: [facility] 10-05-2023 09:20-0400 Heart rate 83 /min Celi Rodrigues MD, PhD Work Phone: [facility] 10-05-2023 09:20-0400 Respiratory rate 14 /min Celi Rodrigues MD, PhD Work Phone: [facility] 10-05-2023 09:20-0400 SaO2% (BldA) [Mass fraction] 99 % Celi Rodrigues MD, PhD Work Phone: [facility] 10-05-2023 09:20-0400 Systolic blood pressure 122 mm[Hg] Celi Rodrigues MD, PhD Work Phone: [facility] 08-02-2023 09:08-0500 Body height 165.1 cm Woo Killian MD Work Phone: [facility] 08-02-2023 09:08-0500 Body mass index (BMI) [Ratio] 27.96 kg/m2 Woo Killian MD Work Phone: [facility] 08-02-2023 09:08-0500 Body weight 76.2 kg Woo Killian MD Work Phone: [facility] 08-02-2023 09:08-0500 Diastolic blood pressure 80 mm[Hg] Woo Killian MD Work Phone: [facility] 08-02-2023 09:08-0500 Heart rate 72 /min Woo Killian MD Work Phone: [facility] 08-02-2023 09:08-0500 Respiratory rate 16 /min Woo Killian MD Work Phone: [facility] [employer] [facility] 08-02-2023 09:08-0500 Systolic blood pressure 120 mm[Hg] Woo Killian MD Work Phone: [facility] [employer] [facility] 07-05-2023 13:41-0500 Body height 165.1 cm Woo Killian MD Work Phone: [facility] [employer] [facility] 07-05-2023 13:41-0500 Body mass index (BMI) [Ratio] 28.87 kg/m2 Woo Killian MD Work Phone: [facility] [employer] [facility] 07-05-2023 13:41-0500 Body weight 78.7 kg Woo Killian MD Work Phone: [facility] [employer] [facility] 07-05-2023 13:41-0500 Diastolic blood pressure 80 mm[Hg] Woo Killian MD Work Phone: [facility] [employer] [facility] 07-05-2023 13:41-0500 Heart rate 88 /min Woo Killian MD Work Phone: [facility] [employer] 07-05-2023 13:41-0500 Respiratory rate 16 /min Woo Killian MD Work Phone: [facility] [employer] [facility] 07-05-2023 13:41-0500 Systolic blood pressure 146 mm[Hg] Woo Killian MD Work Phone: [facility] Encounters Encounter Date Encounter Type Care Provider Facility Start: 03-06-2025 End: 03-09-2025 Telephone encounter Florence Driscoll CMA [facility] Start: 03-03-2025 End: 03-03-2025 Patient encounter procedure Gil Chester MD Work Phone: [facility] Comment on above: Encounter for Medica re annual wellness exam (Primary Dx); Cough due to KARISSA inhibitor; Encounter for screening mammogram for malignant neoplasm of breast; Mixed hyperlipidemia; Heart failure with mildly reduced ejection fraction ([facility]) Start: 03-03-2025 End: 03-03-2025 ambulatory [facility] Start: 03-03-2025 Encounter for genera l adult medical examination without abnormal findings [facility] Start: 02-13-2025 End: 02-13-2025 [facility] Start: 01-15-2025 ambulatory BELLO KENDRICK [facility] Start: 01-14-2025 End: 01-14-2025 Office outpatient visit 25 minutes 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 Wolf 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 Work Phone: [facility] Comment on above: Chronic cough (Prima ry Dx); Weight loss, non-intentional Start: 01-14-2025 End: 01-14-2025 ambulatory [facility] Start: 12-17-2024 End: 12-17-2024 Office outpatient visit 15 minutes 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 Wolf 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 Work Phone: [facility] Comment on above: Chronic cough (Prima ry Dx) Start: 12-17-2024 End: 12-17-2024 ambulatory [facility] Start: 11-06-2024 ambulatory [facility] Start: 10-30-2024 End: 10-30-2024 ambulatory [facility] Start: 10-30-2024 End: 10-30-2024 Office outpatient visit 25 minutes Gil Chester MD Work Phone: [facility] Comment on above: Weight loss, non-int entional (Primary Dx); Heart failure with mildly reduced ejection fraction (CMS-HCC); Other hemorrhoids Start: 09-19-2024 End: 09-19-2024 ambulatory Annette Mercado RN NURSE SUPERVISOR [employer]LECT[employer]ING Comment on above: Weight Loss Start: 08-26-2024 End: 08-26-2024 ambulatory [facility] Start: 07-07-2024 End: 07-07-2024 ambulatory [facility] Start: 03-20-2024 End: 03-20-2024 Telephone encounter Aleena Anant MENDENHALL [facility] Start: 02-22-2024 End: 02-22-2024 Orders Only Noemiyao Sanches RMA [facility] Comment on above: Rectal bleeding Start: 12-31-2023 End: 12-31-2023 Office outpatient visit 15 minutes Ilana Samayoa Packer 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 Work Phone: [facility] Comment on above: Rectal bleeding (Alicia winnie Dx); Screen for colon cancer; Family history of colon cancer in father Start: 12-25-2023 End: 12-25-2023 Patient encounter procedure Woo Killian MD Work Phone: [facility] Comment on above: Routine general medi geraldo examination at a health care facility (Primary Dx); LBBB (left bundle branch block); Primary osteoarthritis involving multiple joints; Mixed hyperlipidemia; Other iron deficiency anemia; Encounter for screening mammogram for malignant neoplasm of breast; Screen for colon cancer; Age related osteoporosis, unspecified pathological fracture presence Start: 12-25-2023 End: 12-25-2023 Patient encounter status Woo Killian MD [facility] Phone[facility] [employer] Work Phone: Start: 10-05-2023 End: 10-05-2023 ambulatory Celi Rodrigues MD, PhD Work Phone: [facility] Comment on above: MRI Start: 10-05-2023 E-mail encounter fro m caregiver Celi Rodrigues MD, PhD Work Phone: [facility] Start: 10-05-2023 End: 10-05-2023 Office consultation new/estab patient 80 min Celi Rodrigues MD, PhD Work Phone: [facility] Comment on above: Transient neurologic al symptoms (Primary Dx); Lip numbness; Mixed hyperlipidemia Start: 10-03-2023 End: 07-04-2024 Telephone encounter Celi Rodrigues MD, PhD Work Phone: [facility] Comment on above: Imaging/Records Start: 09-24-2023 End: 09-24-2023 ambulatory WOO LERNER Facility:[facility] Start: 09-04-2023 Orders Only Woo palomo MD Work Phone: [facility] Start: 08-30-2023 End: 08-31-2023 ambulatory WOO KILLIAN [facility] Start: 08-30-2023 End: 08-30-2023 [facility]ulatory [facility] Start: 08-07-2023 Refill Rody [facility] Start: 08-02-2023 End: 08-02-2023 Office outpatient visit 25 minutes Woo Killian MD Work Phone: [facility] Comment on above: Transient ischemic a ttack (TIA) (Primary Dx); Symptomatic bradycardia; LBBB (left bundle branch block); Facial weakness Start: 07-05-2023 End: 07-05-2023 Transitional care manage srvc 14 day discharge Woo Killian MD Work Phone: [facility] Comment on above: Symptomatic bradycar frances (Primary Dx); MVP (mitral valve prolapse); LBBB (left bundle branch block) Start: 01-12-2022 End: 01-13-[address] WOO KILLIAN Facility: Start: 09-29-2020 End: 09-03-2020 Patient encounter procedure Sabrina Caceres Work Phone: [facility] Work Phone: Start: 09-03-2020 End: 09-03-2020 Patient encounter procedure Ruthie Blevinsmicaela Work Phone: [facility] Work Phone: Start: 09-27-2017 End: 09-27-2017 Amb[facility] Start: 09-24-2017 End: 09-29-2017 Ambulatory TAREK A DBOUK [facility] Start: 05-02-2017 End: 06-01-2017 Ambulatory MAXIME OSPINA [facility] Start: 04-01-2017 End: 05-02-2017 Ambulatory MAXIME OSPINA [facility] Start: 03-16-2017 End: 03-17-2017 Ambulatory MAXIME OSPINA [facility] Start: 03-02-2017 End: 04-01-2017 Ambulatory MAXIME OSPINA [facility] Start: 02-23-2017 End: 02-24-2017 Ambulatory MAXIME OSPINA [facility] Start: 01-30-2017 End: 03-02-2017 Ambulatory MAXIME OSPINA [facility] Start: 01-11-2017 End: 01-12-2017 Ambulatory MAXIME OSPINA [facility] Procedures Date Procedure Procedure Detail Performing Clinician Start: 03-03-2025 Adult depression scr eening assessment Gil Chester MD Work Phone: Start: 01-14-2025 Follow-up visit Follow-up CARL WOLF Start: 01-14-2025 Adult depression scr eening assessment Carl Wolf 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 Work Phone: Start: 12-17-2024 Adult depression scr eening assessment Carl Wolf 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 Work Phone: Start: 10-30-2024 Adult depression scr eening assessment Gil Chester MD Work Phone: Start: 02-20-2024 End: 02-20-2024 Colonoscopy Ilanasaturnino Packer 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 Work Phone: Start: 02-20-2024 Level i surg patholo gy gross examination only Not In System Ref Prov Start: 01-09-2024 Mammography Noemi Hosea parrish RMA Start: 12-25-2023 Adult depression scr eening assessment Woo Killian MD Work Phone: Start: 08-02-2023 Adult depression scr eening assessment [...] Start: 09-03-2020 SARS-CoV-2 vaccine, 0.5ml Moderna Ruthie Smiley Work Phone: Start: 09-27-2017 INCENTIVE SPIROMETRY RT [...] DBOUK Start: 09-27-2017 PULSE OXIMETRY SPOT CHECK JENY SCHILLING Start: 09-27-2017 VITAL SIGNS JENY HORTA K Start: 09-24-2017 BASIC METABOLIC PANEL T [place] SHAKIR Start: 09-24-2017 CBC JENY HORTA K Start: 09-24-2017 EXTRA TUBE JENY HORTA K Start: 09-24-2017 PREPARE RBC (CROSSMATCH) JENY SCHILLING Start: 09-24-2017 TYPE AND SCREEN JENY BROWN Start: 09-24-2017 EKG 12-LEAD JENY Munoz Start: 08-01-2017 Mammography Woo torres MD Work Phone: Start: 07-17-2017 Lipid 1996 panel - S mckenzie or Plasma Celi Rodrigues MD, PhD Work Phone: Plan of Treatment Date Care Activity Detail Author Start: 03-31-2029 DTaP,Tdap and Td Vaccines (3 - Td or Tdap) DTaP,Tdap and Td Vaccines (3 - Td or Tdap) [facility] Start: 03-31-2029 Urine microalbumin profile DTaP,Tdap,Td Vaccine (3 - Td or Tdap) [facility] Start: 02-19-2029 Screening for malign ant neoplasm of colon Colonoscopy [facility] Start: 06-21-2026 Diabetes Screening Diabetes Screenin g [facility] Start: 03-03-2026 Adult BMI Screening Adult BMI Screen ing [facility] Start: 03-03-2026 Depression Screening Depression Scre [facility] Start: 03-03-2026 Fall Risk Screening Fall Risk Screen ing [facility] Start: 03-03-2026 Medicare Annual Wellness Visit Medicare Annual Wellness Visit [facility] Start: 03-03-2026 Tobacco Screening Tobacco Screening [facility] Start: 01-14-2026 Adult BMI Screening Adult BMI Screen ing [facility] Start: 01-14-2026 Depression Screening Depression Scre [facility] Start: 01-14-2026 Tobacco Screening Tobacco Screening [facility] Start: 12-17-2025 Adult BMI Screening Adult BMI Screen ing [facility] Start: 12-17-2025 [facility] Start: 12-17-2025 Tobacco Screening Tobacco Screening [facility] Start: 08-31-2025 End: 08-31-2025 Patient encounter procedure 08/31/2025 11:45 AM EST Office Visit [facility] [address] [place] [phone] Gil Chester MD [address] [place] [id number] [facility] Start: 03-03-2025 End: 03-03-2026 DBT Breast - bilateral screening Mammography screening bilateral with CAD Imaging Routine Encounter for screening mammogram for malignant neoplasm of breast Expected: 03/03/2025, Expires: 03/03/2026 [facility] Work Phone: Comment on above: Expected: 03/03/2025 , Expires: 03/03/2026 Start: 03-02-2025 COVID-19 Vaccine ( season) COVID-19 Vaccine () [facility] Start: 03-02-2025 Influenza vaccination Influenza Vacc ine [facility] Start: 02-04-2025 End: 02-04-2025 Patient encounter procedure 02/04/2025 11:30 AM EDT Office Visit [facility] [address] [place], [place] [id number] [phone] Gil Chester MD [address] [place] [phone] [facility] Start: 01-22-2025 End: 01-22-2025 Patient encounter procedure 01/22/2025 8:[address] [facility] [address] [place] [phone] [facility] Start: 01-21-2025 End: 01-21-2025 ambulatory 01/21/2025 11:[address] [facility] [address] [place] [phone] [facility] Start: 01-14-2025 End: 01-14-2026 CT Chest limited W contrast IV CT chest with contrast Imaging Routine Chronic cough Weight loss, non-intentional Expected: 01/14/2025, Expires: 01/14/2026 [facility] Work Phone: Comment on above: Expected: 01/14/2025 , Expires: 01/14/2026 Start: 01-14-2025 End: 01-14-2025 Patient encounter procedure 01/14/2025 9:45 AM EDT Office Visit [facility] [address] [place] [address] Carl Wolf, MARIANO-MOTION PICTURES CARTOONIST [address] [place], [place] [phone] [facility] Start: 01-08-2025 Screening for malign ant neoplasm of breast Mammogram [facility] Start: 12-30-2024 Adult BMI Screening Adult BMI Screen ing [facility] Start: 12-30-2024 Tobacco Screening Tobacco Screening [facility] Start: 12-26-2024 End: 12-26-2024 Patient encounter procedure [facility] Start: 12-24-2024 Adult BMI Screening Adult BMI Screen ing [facility] Start: 12-24-2024 Depression Screening Depression Scre ening [facility] Start: 12-24-2024 Fall Risk Screening Fall Risk Screen ing [facility] Start: 12-24-2024 Medicare Annual Wellness Visit Medicare Annual Wellness Visit [facility] Start: 12-24-2024 Tobacco Screening Tobacco Screening [facility] Start: 11-08-2024 COVID-19 Vaccine ( season) COVID-19 Vaccine ( season) [facility] Start: 08-29-2024 Adult BMI Screening Adult BMI Screen ing [facility] Start: 08-29-2024 Tobacco Screening Tobacco Screening [facility] Start: 08-02-2024 Adult BMI Screening Adult BMI Screen ing [facility] Start: 08-02-2024 Depression Screening Depression Scre ening [facility] Start: 08-02-2024 Fall Risk Screening Fall Risk Screen ing [facility] Start: 08-02-2024 Tobacco Screening Tobacco Screening [facility] Start: 07-05-2024 Adult BMI Screening Adult BMI Screen ing [facility] Start: 07-05-2024 Depression Screening Depression Scre ening [facility] Start: 07-05-2024 Fall Risk Screening Fall Risk Screen ing [facility] Start: 07-05-2024 Tobacco Screening Tobacco Screening [facility] Start: 07-02-2024 Advance Directive Discussion Advance Directive Discussion [facility] Start: 03-02-2024 COVID-19 Vaccine ( season) COVID-19 Vaccine () [facility] Start: 03-02-2024 Covid-19 Vaccine () Covid-19 Vaccine () [facility] Start: 03-02-2024 Influenza vaccination [facility] Start: 12-25-2023 End: 12-24-2024 CBC W Auto Differential panel - Blood CBC auto differential Lab Routine Mixed hyperlipidemia Expected: 12/25/2023, Expires: 12/24/2024 [facility] Work Phone: Comment on above: Expected: 12/25/2023 , Expires: 12/24/2024 Start: 12-25-2023 End: 12-24-2024 Comprehensive metabolic 2000 panel - Serum or Plasma Comprehensive metabolic panel Lab Routine Mixed hyperlipidemia Expected: 12/25/2023, Expires: 12/24/2024 [facility] Comment on above: Expected: 12/25/2023 , Expires: 12/24/2024 Start: 12-25-2023 End: 12-24-2024 DXA Skeletal system Views for bone density Dexa scan central skeletal Imaging Routine Age related osteoporosis, unspecified pathological fracture presence Expected: 12/25/2023, Expires: 12/24/2024 [facility] Comment on above: Expected: 12/25/2023 , Expires: 12/24/2024 Start: 12-25-2023 End: 12-24-2024 Iron and TIBC Iron and TIBC Lab Routine Other iron deficiency anemia Expected: 12/25/2023, Expires: 12/24/2024 [facility] Comment on above: Expected: 12/25/2023 , Expires: 12/24/2024 Start: 12-25-2023 End: 12-24-2024 Lipid 1996 panel - Serum or Plasma Lipid profile Lab Routine Mixed hyperlipidemia Expected: 12/25/2023, Expires: 12/24/2024 [facility] Comment on above: Expected: 12/25/2023 , Expires: 12/24/2024 Start: 12-25-2023 End: 12-24-2024 Thyroid profile includes TSH FT4 Thyroid profile includes TSH FT4 Lab Routine Mixed hyperlipidemia Expected: 12/25/2023, Expires: 12/24/2024 [facility] Comment on above: Expected: 12/25/2023 , Expires: 12/24/2024 Start: 12-25-2023 End: 12-25-2023 Patient encounter procedure 12/25/2023 11:00 AM EDT Office Visit [facility] [address] [place] [phone] Woo Killian MD [address] [place], [place] [phone] [facility] Start: 12-21-2023 Medicare Annual Wellness Visit Medicare Annual Wellness Visit [facility] Start: 09-14-2023 COVID-19 Vaccine ( season) COVID-19 Vaccine ( season) [facility] Start: 08-30-2023 End: 08-30-[address] [facility] Start: 08-30-2023 Subsequent hospital visit by physician 08/30/2023 1:15 PM EST Hospital Encounter [facility] [address] [place] [address] [facility] Start: 08-02-2023 End: 08-02-2024 Holter monitor study Holter monitor 24-48 hour Cardiac Services Routine Symptomatic bradycardia LBBB (left bundle branch block) Expected: 08/02/2023, Expires: 08/02/2024 [employer] Comment on above: Expected: 08/02/2023 , Expires: 08/02/2024 Start: 08-02-2023 End: 08-02-2024 MR Brain WO contrast MR brain without contrast Imaging Routine Transient ischemic attack (TIA) Expected: 08/02/2023, Expires: 08/02/2024 [employer] Work Phone: Comment on above: Expected: 08/02/2023 , Expires: 08/02/2024 Start: 08-02-2023 End: 08-02-2024 US Carotid arteries - bilateral Vas carotid duplex bilateral Vascular Ultrasound Routine Transient ischemic attack (TIA) Facial weakness Expected: 08/02/2023, Expires: 08/02/2024 [employer] Comment on above: Expected: 08/02/2023 , Expires: 08/02/2024 Start: 08-02-2023 End: 08-02-2023 Patient encounter procedure 08/02/2023 9:30 AM EST Office Visit [facility] [address] [place] [address] Woo Killian MD [address] [place], [place] [phone] [facility] Start: 07-02-2023 Advance Directive Discussion Advance Directive Discussion [facility] Start: 07-02-2023 Behavioral Health Screening Behavioral Health Screening [facility] Start: 07-17-2022 Lipid panel Lipid Screening [facility] Start: 09-29-2020 2nd Dose- COVID Vaccine [facility] Work Phone: Start: 2019 Screening for osteoporosis Bone Density Screening [facility] Start: 08-01-2018 Screening for malign ant neoplasm of breast [facility] Start: 1999 Screening for malign ant neoplasm of colon [facility] Start: 1972 Adult BMI Follow Up Plan Adult [facility] Start: 1972 Anxiety Screening Anxiety Screening [facility] Start: 1972 Depression Screening Depression Scre ening [facility] Start: 1972 Hepatitis C screening Hepatitis C Sc braeden [facility] End: 10-30-2025 CBC W Auto Differential panel - Blood CBC auto differential Lab Routine Weight loss, non-intentional 1 Occurrences starting 10/30/2024 until 10/30/2025 [employer] Work Phone: Comment on above: 1 Occurrences starti ng 10/30/2024 until 10/30/2025 End: 12-30-2024 Colonoscopy Colonoscopy GI Routine Rectal bleeding 1 Occurrences starting 12/31/2023 until 12/30/2024 [employer] Work Phone: Comment on above: 1 Occurrences starti ng 12/31/2023 until 12/30/2024 End: 03-03-2026 Comprehensive metabolic 2000 panel - Serum or Plasma Comprehensive metabolic panel Lab Routine Heart failure with mildly reduced ejection fraction (CMS-HCC) 1 Occurrences starting 03/03/2025 until 03/03/2026 [employer] Comment on above: 1 Occurrences starti ng 03/03/2025 until 03/03/2026 End: 01-14-2026 Creatinine includes GFR, serum Creatinine includes GFR, serum Lab Routine Chronic cough Weight loss, non-intentional 1 Occurrences starting 01/14/2025 until 01/14/2026 [facility] Comment on above: 1 Occurrences starti ng 01/14/2025 until 01/14/2026 End: 10-30-2025 Erythrocyte sedimentation rate Erythrocyte Sedimentation Rate (ESR) Lab Routine Weight loss, non-intentional 1 Occurrences starting 10/30/2024 until 10/30/2025 [facility] Comment on above: 1 Occurrences starti ng 10/30/2024 until 10/30/2025 End: 03-03-2026 Hemoglobin A1c/Hemoglobin.total in Blood Hemoglobin A1c Lab Routine Mixed hyperlipidemia 1 Occurrences starting 03/03/2025 until 03/03/2026 [facility] Comment on above: 1 Occurrences starti ng 03/03/2025 until 03/03/2026 End: 10-30-2025 Immune Fecal OB - FIT Immune Fecal OB - FIT Lab Routine Weight loss, non-intentional 1 Occurrences starting 10/30/2024 until 10/30/2025 [facility] Comment on above: 1 Occurrences starti ng 10/30/2024 until 10/30/2025 End: 03-03-2026 Lipid 1996 panel - Serum or Plasma Lipid profile Lab Routine Heart failure with mildly reduced ejection fraction ([facility]) 1 Occurrences starting 03/03/2025 until 03/03/2026 [facility] Comment on above: 1 Occurrences starti ng 03/03/2025 until 03/03/2026 End: 03-03-2026 Thyroid profile includes TSH FT4 Thyroid profile includes TSH FT4 Lab Routine Mixed hyperlipidemia Heart failure with mildly reduced ejection fraction (CMS-HCC) 1 Occurrences starting 03/03/2025 until 03/03/2026 [facility] Comment on above: 1 Occurrences starti ng 03/03/2025 until 03/03/2026 Immunizations Immunization Date Immunization Notes Care Provider Fa [facility] 05-11-2024 influenza virus vacc ine, unspecified formulation Gil Chester MD Work Phone: [facility] 06-18-2023 RSV, recombinant, protein subunit RSVpreF, adjuvant reconstituted, 0.5 mL, PF Woo Killian MD Work Phone: [facility] 05-16-2023 Influenza Vaccine, Quadrivalent, Adjuvanted Woo Killian MD Work Phone: [facility] 05-16-2023 influenza virus vacc ine, unspecified formulation Woo Killian MD Work Phone: [facility] 06-20-2022 Covid-19, Mrna, Lnp- s, Bivalent, Pf, 50mcg/0.5ml or 25mcg/0.25ml Woo Killian MD Work Phone: [facility] 03-05-2022 Influenza, High-dose , Quadrivalent Woo Killian MD Work Phone: [facility] 03-05-2022 pneumococcal polysaccharide vaccine, 23 valent Woo Killian MD Work Phone: [facility] 03-05-2022 pneumococcal vaccine , unspecified formulation Woo Killian MD Work Phone: [facility] 04-12-2021 Influenza Vaccine, Quadrivalent, Adjuvanted Woo Killian MD Work Phone: [facility] 04-12-2021 influenza virus vacc ine, unspecified formulation Woo Killian MD Work Phone: [facility] 09-29-2020 2nd Dose MODERNA COVID-19 Vaccine; Translations: [Moderna COVID-19 Vaccine] [facility] Work Phone: Comment on above: Note: Patient tolera meli well. No signs or symptoms of adverse reactions. Patient waited a minimum of 15 minutes. 09-03-2020 2nd Dose MODERNA COVID-19 Vaccine; Translations: [Moderna COVID-19 Vaccine] [facility] Comment on above: Note: Patient tolera meli well. No signs or symptoms of adverse reactions. Patient waited a minimum of 15 minutes. 03-29-2020 Influenza Vaccine, Quadrivalent, Adjuvanted Woo Killian MD Work Phone: [facility] 03-29-2020 zoster vaccine recombinant Woo Killian MD Work Phone: [facility] 07-20-2019 zoster vaccine recombinant Woo Killian MD Work Phone: [facility] 03-31-2019 influenza, injectabl e, quadrivalent, preservative free Woo Killian MD Work Phone: [facility] 03-31-2019 pneumococcal conjuga te vaccine, 13 valent Woo Killian MD Work Phone: [facility] 03-31-2019 tetanus toxoid, redu francisco diphtheria toxoid, and acellular pertussis vaccine, adsorbed Woo Killian MD Work Phone: [facility] 04-22-2018 influenza, injectabl e, quadrivalent, preservative free Woo Killian MD Work Phone: [facility] 06-11-2017 influenza, injectabl e, quadrivalent, preservative free Woo Killian MD Work Phone: [facility] 06-19-2015 influenza, seasonal, injectable, preservative free [facility]oo [facility] 09-12-2011 tetanus toxoid, redu francisco diphtheria toxoid, and acellular pertussis vaccine, adsorbed Woo Killian [facility] 04-14-2010 pneumococcal polysaccharide vaccine, 23 valent Woo Killian MD Work Phone: [facility] Payers Date Payer Category Payer Medicare (Managed Care) [facility] ADVANTAGE PPO [id number] 2020 Unknown [facility] MEDICARE ADVANTAGE PPO [id number] 2020-Present [id number] [place], [place] [address] [facility] [id number] 2019 Medicare ANTHEM MEDICARE ANTHEM MEDICARE ADVANTAGE [id number] 2019-Present [id number] [place] [id number] 2019 Medicare O [facility] MEDICARE [id number] 2017 Unknown [id number] 1959 Unknown [id number] 1954 Unknown [id number] 1954 Unknown [id number] [id number] 1954 Unknown [id number] [id number] 1954 Unknown [id number] [id number] 1954 Unknown [id number] [id number] 1954 Unknown [id number] [id number] 1954 Unknown [id number] [id number] 1954 Unknown [id number] [id number] Social History Date Type Detail Facility Tobacco smoking status Unknown if ever sm [facility]ly [facility] Work Phone: Start: 09-24-2023 End: 12-25-2023 Tobacco smoking status NHIS Ex-smoker [facility] Start: 07-23-1975 End: 07-23-1976 History of tobacco use Current smoker [facility] Start: 07-23-1975 End: 07-23-1976 History of tobacco use Cigarette Smoker [facility] Start: 07-22-2020 End: 09-24-2023 Cigarettes smoked current (pack per day) - Reported 1 [facility] Start: 09-24-2023 End: 12-25-2023 Tobacco use and exposure Smokeless tobacco non-user [facility] Start: 10-05-2023 End: 03-03-2025 Alcohol intake Current drinker of alcohol (finding) [facility] Start: 07-22-2020 End: 10-05-2023 Tobacco use panel [facility] National Score (1-10 0), lower number is lower risk 80 [facility] Start: 08-23-2018 End: 12-31-2023 Alcohol Comment occasional [facility] Start: 1955 Sex Assigned At Not on file P [facility] Start: 01-10-2023 Tobacco Comment Casual smoker, less than a pack a week [facility] Start: 02-04-2015 Sex Female (finding) [facility] Medical Equipment Procedure Code Equipment Code Equipment Origin al Text Equipment Identifier Dates Cardiac pacemaker, device (physical object) ([id number]) Pacemaker-06/19/20 23 [id number] Start: 06-19-2023 Comment on above: Description: [facility] Clinical Notes 07-05-2023 to 03-06-2025 Telephone Encounter - Florence Driscoll CMA - 03/06/2025 12:24 PM EDTTelephone Encounter - Gil Chester MD - 03/06/2025 12:24 PM EDTTelephone Encounter - Gil Chester MD - 03/06/2025 12:24 PM EDT Note Date & Type Note Facility 03-06-2025 Miscellaneous Notes HGB A1c is not clearing ABN. Please use the dx code of impaired fasting glucose. Then we need to fax to Tony bhat I have changed the diagnosis. Please fax over to tony LM on pt vm that new orders were faxed to [facility] documented in this encounter [facility] 03-06-2025 Telephone encounter Note HGB A1c is not clearing ABN. Please use the dx code of impaired fasting glucose. Then we need to fax to [facility] 03-06-2025 Telephone encounter Note I have changed the diagnosis. Please fax over to tony [facility] 03-06-2025 Telephone encounter Note LM on pt vm that new orders were faxed to [facility] 03-03-2025 History of Present illness Narrative Images from the original note were not included. [address] [place] [address] Subjective: Luma Davey is a 69 y.o. female who presents for a Medicare Annual Wellness exam. 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 History: Hospitalizations during the past 12 months: no Patient Active Problem List Diagnosis Date Noted Vertigo, benign paroxysmal 05/05/2019 SOB (shortness of breath) 06/14/2018 LBBB (left bundle branch block) 06/14/2018 [place]-Walker grade 1 rectocele 01/22/2018 Rectocele, female 09/07/2017 MVP (mitral valve prolapse) 07/16/2017 Primary osteoarthritis involving multiple joints 07/16/2017 Urinary incontinence 12/25/2016 Past Medical History: Diagnosis Date Arthritis Cervical cancer ([facility]) Pacemaker Past Surgical History: Procedure Laterality Date [...] mg total) by mouth in the morning. [id number] ORAL Take 1 capsule by mouth in [...] of yes answers would provide a composite measure of non-adherence. Higher scores indicate higher adherence. Cognitive [...] copy in patient's medical record. Assessment/Plan: Luma Davey has been seen for a well visit [...] Heart failure with mildly reduced ejection fraction ([facility]) - Comprehensive metabolic panel; Future - Thyroid profile includes TSH FT4; Future - Lipid profile; Future Plan: -Uptodate on cologuard. Due in 2026 Advised to get flu shot this year -Monitor for any weight loss. -encouraged a healthy diet. Follow Up: 6 mo documented in this encounter [facility] 02-13-2025 Miscellaneous Notes Attempted to call patient regarding CT of chest not completed. Not accepting calls at this time. [facility]25 Telephone encounter Note Attempted to call patient regarding CT of chest not completed. Not accepting calls at this time. [facility] [place] [facility] 01-14-2025 Note Patient called with complaints of a dry cough that started shortly after starting Lisinopril. Patient had evaluation by PCP including CT/Labs and allergy medication. Please contact patient with recommendations. Brooklyn Salgado MA [facility] 01-14-2025 History of Present illness Narrative Images from the original note were not included. [address] [place] [address] SUBJECTIVE: Patient ID: Luma Davey is a 69 y.o. female. Patient presents to the office for follow up. No improvement with cough with protonix. She did lose 15 lbs in the past few months without trying, daughter at 38 of rare kidney cancer, patient has history of cervical cancer, she has had chronic cough for months with no improvement. Will have her contact cardiology about lisinopril and also try allergy medication. Has no URI symptoms. Follow-up Associated symptoms include coughing. Pertinent negatives include no abdominal pain, arthralgias, chest pain, congestion, fatigue, fever, joint swelling, nausea, neck pain, numbness, rash, sore throat, vomiting or weakness. The following portions of the patient's history were reviewed and updated as appropriate: allergies, current medications, past family history, past medical history, past social history, past surgical history and problem list. REVIEW OF SYSTEMS: Review of Systems Constitutional: Positive for unexpected weight change. Negative for fatigue and fever. HENT: Negative for congestion, ear pain, sinus pressure, sinus pain and sore throat. Eyes: Negative for photophobia, pain, discharge and visual disturbance. Respiratory: Positive for cough. Negative for shortness of breath. Cardiovascular: Negative for chest pain, palpitations and leg swelling. Gastrointestinal: Negative for abdominal pain, diarrhea, nausea and vomiting. Endocrine: Negative for polydipsia, polyphagia and polyuria. Genitourinary: Negative for difficulty urinating, frequency, hematuria and urgency. Musculoskeletal: Negative for arthralgias, gait problem, joint swelling and neck pain. Skin: Negative for pallor and rash. Neurological: Negative for dizziness, weakness, light-headedness and numbness. Psychiatric/Behavioral: Negative for sleep disturbance. The patient is not nervous/anxious. PHYSICAL EXAMINATION: Vitals: 01/14/25 0938 BP: 120/62 Pulse: 83 Resp: 16 SpO2: 98% Weight: 67.6 kg (149 lb) Physical Exam Constitutional: Appearance: She is well-developed. HENT: Head: Normocephalic and atraumatic. Right Ear: External ear normal. Left Ear: External ear normal. Eyes: Conjunctiva/sclera: Conjunctivae normal. Pupils: Pupils are equal, round, and reactive to light. Cardiovascular: Rate and Rhythm: Normal rate and regular rhythm. Heart sounds: Normal heart sounds. Pulmonary: Effort: Pulmonary effort is normal. Breath sounds: Normal breath sounds. Musculoskeletal: Cervical back: Normal range of motion. Skin: General: Skin is warm and dry. Neurological: Mental Status: She is alert and oriented to person, place, and time. Psychiatric: Mood and Affect: Mood normal. ASSESSMENT/PLAN: Luma was seen today for follow-up. Diagnoses and all orders for this visit: Chronic cough - CT chest with contrast; Future - Creatinine includes GFR, serum; Future Weight loss, non-intentional - CT chest with contrast; Future - Creatinine includes GFR, serum; Future Follow-up: Ct chest with contrast Jessi and margarita Going to talk to cardiology about lisinopril Will call with results REMA Aranda 01/14/25 0956 [facility]-17[facility]24 History of Present illness Narrative Images from the original note were not included. [address] [facility] [address] SUBJECTIVE: Patient ID: Luma Davey is a 69 y.o. female. Patient presents to the office for chronic cough. 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 Has been going on for the past month. She does have a lot of throat clearing at times too. Does have history of acid reflux. No URI symptoms or allergies. It is a dry cough. No post nasal drip. Worse at night when she lays flat. Did offer upper Gi she was on protonix before and would like to try that again and follow up in 28 days. Cough Pertinent negatives include no chest pain, ear pain, fever, rash, sore throat or shortness of breath. The following portions of the patient's history were reviewed and updated as appropriate: allergies, current medications, past family history, past medical history, past social history, past surgical history and problem list. REVIEW OF SYSTEMS: Review of Systems Constitutional: Negative for fatigue, fever and unexpected weight change. HENT: Negative for congestion, ear pain, sinus pressure, sinus pain and sore throat. Eyes: Negative for photophobia, pain, discharge and visual disturbance. Respiratory: Positive for cough. Negative for shortness of breath. Cardiovascular: Negative for chest pain, palpitations and leg swelling. Gastrointestinal: Negative for abdominal pain, diarrhea, nausea and vomiting. Endocrine: Negative for polydipsia, polyphagia and polyuria. Genitourinary: Negative for difficulty urinating, frequency, hematuria and urgency. Musculoskeletal: Negative for arthralgias, gait problem, joint swelling and neck pain. Skin: Negative for pallor and rash. Neurological: Negative for dizziness, weakness, light-headedness and numbness. Psychiatric/Behavioral: Negative for sleep disturbance. The patient is not nervous/anxious. PHYSICAL EXAMINATION: Vitals: 12/17/24 1328 BP: 112/58 Pulse: 98 Resp: 16 SpO2: 97% Weight: 67.6 kg (149 lb) Physical Exam Constitutional: Appearance: She is well-developed. HENT: Head: Normocephalic and atraumatic. Right Ear: External ear normal. Left Ear: External ear normal. Eyes: Conjunctiva/sclera: Conjunctivae normal. Pupils: Pupils are equal, round, and reactive to light. Cardiovascular: Rate and Rhythm: Normal rate and regular rhythm. Heart sounds: Normal heart sounds. Pulmonary: Effort: Pulmonary effort is normal. Breath sounds: Normal breath sounds. Musculoskeletal: General: Normal range of motion. Cervical back: Normal range of motion. Skin: General: Skin is warm and dry. Neurological: Mental Status: She is alert and oriented to person, place, and time. Psychiatric: Mood and Affect: Mood normal. ASSESSMENT/PLAN: Luma was seen today for cough. Diagnoses and all orders for this visit: Chronic cough Other orders - pantoprazole (PROTONIX) 40 mg EC tablet; Take 1 tablet (40 mg total) by mouth in the morning. Follow-up: Protonix 40mg daily Follow up in 28 days REMA Aranda 12/17/24 1404 documented in this encounter [facility] 10-30-2024 History of Present illness Narrative [address] [place] [address] Patient: Luma Davey Date of : 1955 Encounter Date: 10/30/2024 History of Present Illness: The patient is a 69 y.o. female, an established patient, and is here for Chief Complaint Patient presents with Weight Loss . Patient came in today as she has lost about 10 lb in the last 6 months. She has had 2 episodes of near syncope. Patient does get short of breath easily with her routine work. She also gets a dry cough occasionally when she is lying down at night. Of note, Patient was seen by her blending tank tender 2 months back and the echo showed a reduced ejection fraction to 45%. She has made some changes to her diet in the last 1 year. She has cut down on carbohydrates and meat in the last 6 months. She has noticed blood off and on in her stool. She had colonoscopy done last year which was normal. Cologuard was also done last yearbut sample was inadequate so it was not reported. Patient is concerned about the weight loss because her daughter had type of kidney cancer and her father had stomach cancer. She has personal history of cervical cancer about 10 years ago. Problem List Items Addressed This Visit None Visit Diagnoses Weight loss, non-intentional - Primary Relevant Orders CBC auto differential Erythrocyte Sedimentation Rate (ESR) Immune Fecal OB - FIT Heart failure with mildly reduced ejection fraction (CMS-HCC) Other hemorrhoids Past Medical, Family, and Social History Update: The following portions of the patient's history were reviewed and updated as appropriate: allergies, current medications, past family history, past medical history, past social history, past surgical history and problem list. Past Medical History: Diagnosis Date Arthritis Cervical cancer (CMS-HCC) Pacemaker Past Surgical History: Procedure Laterality Date CARDIAC PACEMAKER PLACEMENT OTHER SURGICAL HISTORY anterior/posterior seperation, pelvis seperated TUBAL LIGATION URETHRAL SLING WRIST FRACTURE SURGERY Current Outpatient Medications Medication Sig Dispense Refill aspirin 81 mg Take 1 tablet (81 mg total) by mouth in the morning. [id number] ORAL Take 1 capsule by mouth in the evening. cholecalciferol, vitamin D3, (VITAMIN D3 ORAL) Take 2 capsules by mouth in the morning. docosahexaenoic acid/epa (FISH OIL ORAL) Take 1 capsule by mouth in the morning. Osteo Bi-flex. escitalopram (LEXAPRO) 10 mg tablet Take 2 tablets (20 mg total) by mouth in the morning. 180 tablet 3 ferrous sulfate (IRON ORAL) Take by mouth. MAGNESIUM ORAL Take by mouth. MULTIVITAMIN ORAL Take 1 capsule by mouth in the morning. Hair, Skin, and Nails. MYRBETRIQ 50 mg tablet extended release 24 hr Take 1 tablet (50 mg total) by mouth in the morning. sod sulf-pot chloride-mag sulf 1.479-0.188- 0.225 gram tablet Please see instructional sheet given by physicians office. 24 tablet 0 vitamin B complex (B COMPLEX ORAL) Take by mouth. vit A/vit C/vit E/zinc/copper (PRESERVISION AREDS ORAL) Take 1 capsule by mouth in the morning. (Patient not taking: Reported on 10/30/2024) No current facility-administered medications for this visit. (All medications reviewed and updated by provider since last office visit or hospitalization) Allergies: Patient has no known allergies. Tobacco History: Social History Tobacco Use Smoking Status Former Types: Cigarettes Smokeless Tobacco Never Tobacco Comments Casual smoker, less than a pack a week (If patient a smoker, smoking cessation counseling offered) Social History: Social History Substance and Sexual Activity Alcohol Use Yes Comment: occasional Review of Systems: Review of Systems Constitutional: Positive for fatigue. Negative for chills and fever. HENT: Negative for ear pain and sore throat. Eyes: Negative for pain and visual disturbance. Respiratory: Positive for cough and shortness of breath. Cardiovascular: Negative for chest pain and palpitations. Gastrointestinal: Negative for abdominal pain and vomiting. Genitourinary: Negative for dysuria and hematuria. Musculoskeletal: Negative for arthralgias and back pain. Skin: Negative for color change and rash. Neurological: Negative for seizures and syncope. All other systems reviewed and are negative. Physical Exam: BP 140/70 Pulse 89 Resp 18 Wt 69.4 kg (153 lb) SpO2 98% BMI 25.07 kg/m Physical Exam Constitutional: Appearance: She is well-developed. HENT: Head: Normocephalic and atraumatic. Nose: Nose normal. Eyes: Pupils: Pupils are equal, round, and [...] time. Cranial Nerves: No cranial nerve deficit. Lab Results Component Value Date GLU 89 07/17/2017 CALCIUM 9.6 07/17/2017 SODIUM 139 07/17/2017 K 4.6 07/17/2017 CO2 29 07/17/2017 BUN 17 07/17/2017 CREATININE 0.93 07/17/2017 Lab Results Component Value Date WBC 9.4 07/17/2017 HGB 13.5 07/17/2017 HCT 40.7 07/17/2017 MCV 92 07/17/2017 PLT 267 07/17/2017 No results found for: HGBA1C Assessment and Plan: Luma was seen today for weight loss. Diagnoses and all orders for this visit: Weight loss, non-intentional Patient has lost 9% of her body weight in the last 6 months which is concerning for chronic infection versus malignancy. Less likely to be due to alteration in her diet Will check labs today and we will consider a CT of the chest abdomen and pelvis if needed - CBC auto differential; Future - Erythrocyte Sedimentation Rate (ESR); Future - Immune Fecal OB - FIT; Future Heart failure with mildly reduced ejection fraction (CMS-HCC) Patient advised to follow-up with her blending tank tender again to get an opinion if she needs optimization of her heart failure medications Other hemorrhoids Will check fecal occult blood Follow-up: Return for Recheck. 1 mo GIL CHESTER MD documented in this encounter [employer] 09-19-2024 Telephone encounter Note Reason for Call: unintentional weight loss. Outcome: Patient unaware of how much weight loss. She states she doesn't know what she should do. When asked if she has lost over 10 pounds patient says maybe . Advised patient to reach out to PCP's office to see if there is a new PCP taking over for her PCP who retired. Patient stated she was thinking she needed to see oncologist. Advised patient that she should follow up with PCP to determine this issue. Then PCP could refer patient to specialty. Reason for Disposition MILD unexplained weight loss (e.g., less than 5%; 1 to 5 lbs; 0.5 to 2 kg) Answer Assessment - Initial Assessment Questions 1. MAIN CONCERN: unintentional weight loss 2. WEIGHT LOSS: Unknown how much of weight loss. Started noticing at or after [place]. 3. BASELINE WEIGHT: 160-165 lbs. 4. CAUSE: Unknown 5. PRIOR EVALUATION: Denies. PCP retired and patient is unsure of what she needs to do. 6. HEART FAILURE TREATMENT: Pacemaker bu no diagnosis of heart failure. 7. OTHER SYMPTOMS: Blood in stool once in a while colonoscopy was normal. Protocols used: Weight Loss - Xyfileioae-VIALO-GE [facility] 09-19-2024 Miscellaneous Notes Reason for Call: unintentional weight loss. Outcome: Patient unaware of how much weight loss. She states she doesn't know what she should do. When asked if she has lost over 10 pounds patient says maybe . Advised patient to reach out to PCP's office to see if there is a new PCP taking over for her PCP who retired. Patient stated she was thinking she needed to see oncologist. Advised patient that she should follow up with PCP to determine this issue. Then PCP could refer patient to specialty. Reason for Disposition MILD unexplained weight loss (e.g., less than 5%; 1 to 5 lbs; 0.5 to 2 kg) Answer Assessment - Initial Assessment Questions 1. MAIN CONCERN: unintentional weight loss 2. WEIGHT LOSS: Unknown how much of weight loss. Started noticing at or after [place]. 3. BASELINE WEIGHT: 160-165 lbs. 4. CAUSE: Unknown 5. PRIOR EVALUATION: Denies. PCP retired and patient is unsure of what she needs to do. 6. HEART FAILURE TREATMENT: Pacemaker bu no diagnosis of heart failure. 7. OTHER SYMPTOMS: Blood in stool once in a while colonoscopy was normal. Protocols used: Weight Loss - Dqstjdxpsc-SGRTG-FR documented in this encounter [facility] 07-07-2024 Note [facility] Subjective Luma Davey is a 69 y.o. year old female patient being seen for Palpitations ,Bradycardia (Scheduled for routine device interrogation next month. ), Hyperlipidemia (She was started on atorvastatin last month and is tolerating it well so far. ), and Shortness of Breath (More lately since she's fighting a sickness right now. 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 female [...] 109/74 Standing bl (more content not included)... [facility] 06-13-2024 Note aa [facility] 03-20-2024 Miscellaneous Notes ----- Message from Dr. Jaret Dorantes, sent at 03/20/2024 10:45 AM EDT ----- Please let pt. Know that polyp was benign and needs recheck scope in 5 years unless problems. Thanks, Dr. Stafford Spoke with patient regarding pathology results. Patient verbally understood with no further questions. Recall to be put in chart. documented in this encounter [facility] 03-20-2024 Telephone encounter Note ----- Message from Dr. Jaret Dorantes DO sent at 03/20/2024 10:45 AM EDT ----- Please let pt. Know that polyp was benign and needs recheck scope in 5 years unless problems. Thanks, Dr. Stafford [facility] 03-20-2024 Telephone encounter Note Spoke with patient regarding pathology results. Patient verbally understood with no further questions. Recall to be put in chart. [facility] 12-31-2023 History of Present illness Narrative Images from the original note were not included. Chief Complaint: Screening colonoscopy History of Present Illness Luma Davey is a 68 y.o. who presents to the office for colonoscopy. She reports intermittent bright red blood on the toilet paper when she wipes. She has never had a colonoscopy. She states she has hemorrhoids and something pops out. She denies any diarrhea, constipation, abdominal pain or unintentional weight loss. There is a family history of colon cancer in her father. Review of Systems Constitutional: Negative for fever and unexpected weight change. HENT: Negative for trouble swallowing. Respiratory: Negative for shortness of breath. Cardiovascular: Negative for chest pain and palpitations. Gastrointestinal: Positive for blood in stool. Negative for nausea, vomiting, abdominal pain, diarrhea, constipation, abdominal distention and black tarry stool. Genitourinary: Negative for dysuria and difficulty urinating. Musculoskeletal: Negative for joint swelling and gait problem. Skin: Negative for rash and wound. Allergic/Immunologic: Negative for immunocompromised state. Neurological: Negative for dizziness, weakness and light-headedness. Hematological: Does not bruise/bleed easily. Psychiatric/Behavioral: Negative for behavioral problems and confusion. Past Medical History: Diagnosis Date Arthritis Cervical cancer ([facility]) Pacemaker Past Surgical History: Procedure Laterality Date CARDIAC PACEMAKER PLACEMENT OTHER SURGICAL HISTORY anterior/posterior seperation, pelvis seperated TUBAL LIGATION URETHRAL SLING WRIST FRACTURE SURGERY No Known Allergies Current Outpatient Medications: aspirin 81 mg, Take 1 tablet (81 mg total) by mouth in the morning., Disp: , Rfl: XHDJFWU-LIOGESDGS-IGAK ORAL, Take 1 capsule by mouth in the evening., Disp: , Rfl: cholecalciferol, vitamin D3, (VITAMIN D3 ORAL), Take 2 capsules by mouth in the morning., Disp: , Rfl: docosahexaenoic acid/epa (FISH OIL ORAL), Take 1 capsule by mouth in the morning. Osteo Bi-flex., Disp: , Rfl: escitalopram (LEXAPRO) 10 mg tablet, Take 2 tablets (20 mg total) by mouth in the morning. (Patient taking differently: Take 1 tablet (10 mg total) by mouth in the morning.), Disp: 180 tablet, Rfl: 3 ferrous sulfate (IRON ORAL), Take by mouth., Disp: , Rfl: MAGNESIUM ORAL, Take by mouth., Disp: , Rfl: MULTIVITAMIN ORAL, Take 1 capsule by mouth in the morning. Hair, Skin, and Nails., Disp: , Rfl: MYRBETRIQ 50 mg tablet extended release 24 hr, Take 1 tablet (50 mg total) by mouth in the morning., Disp: , Rfl: vit A/vit C/vit E/zinc/copper (PRESERVISION AREDS ORAL), Take 1 capsule by mouth in the morning., Disp: , Rfl: vitamin B complex (B COMPLEX ORAL), Take by mouth., Disp: , Rfl: sod sulf-pot chloride-mag sulf 1.479-0.188- 0.225 gram tablet, Please see instructional sheet given by physicians office., Disp: 24 tablet, Rfl: 0 Social History Socioeconomic History Marital status: Spouse name: Not on file Number of children: Not on file Years of education: Not on file Highest education level: Not on file Occupational History Not on file Tobacco Use Smoking status: Former Types: Cigarettes Smokeless tobacco: Never Tobacco comments: Casual smoker, less than a pack a week Vaping Use Vaping status: Never Used Substance and Sexual Activity Alcohol use: Yes Comment: occasional Drug use: No Sexual activity: Not Currently Partners: Male control/protection: Surgical Other Topics Concern Caffeine Use Yes Social History Narrative Not on file Social Determinants of Health Financial Resource Strain: Low Risk (06/19/2023) [facility] Overall Financial Resource Strain (CARDIA) Difficulty of Paying Living Expenses: Not hard at all Food Insecurity: No Food Insecurity (12/25/2023) Hunger Screening Food Insecurity - Worry: Never True Food Insecurity - Inability: Never True Transportation Needs: No Transportation Needs (06/19/2023) Received from [facility], [facility] Transportation In the past 12 months, has lack of transportation kept you from medical appointments or from getting medications?: No Lack of Transportation (Non-Medical): Not on file Physical Activity: Not on file Stress: Not on file Social Connections: Not on file Interpersonal Safety: Not At Risk (06/19/2023) Received from [facility], [facility] [place] Safety & Environment Within the last year, have you been afraid of your partner or ex-partner?: No Emotionally Abused: Not on file Physically Abused: Not on file Sexually Abused: Not on file In the past year have you been physically or sexually abused?: Not on file Housing Instability: Low Risk (06/19/2023) Received from [facility], [facility], [facility] Housing Stability Vital Sign Unable to Pay for Housing in the Last Year: Not on file Number of Places Lived in the Last Year: Not on file In the last 12 months, was there a time when you did not have a steady place to sleep or slept in a skilled nursing (including now)?: No Family History Problem Relation Age of Onset Stroke Mother Hyperlipidemia Mother Hypertension Mother Heart failure Mother pacemaker Colon cancer Father Heart disease Father Stroke Father Stomach cancer Father Objective Physical Exam Constitutional: Appearance: Normal appearance. HENT: Head: Normocephalic and atraumatic. Mouth/Throat: Mouth: Mucous membranes are moist. Eyes: Pupils: Pupils are equal, round, and reactive to light. Cardiovascular: Rate and Rhythm: Normal rate and regular rhythm. Pulmonary: Effort: Pulmonary effort is normal. No respiratory distress. Abdominal: General: Bowel sounds are normal. There is no distension. Palpations: Abdomen is soft. Tenderness: There is no abdominal tenderness. Musculoskeletal: General: Normal range of motion. Cervical back: Normal range of motion. Skin: General: Skin is warm and dry. Neurological: Mental Status: She is alert and oriented to person, place, and time. Mental status is at baseline. Vital Signs: Blood pressure 142/61, pulse 94, weight 73.9 kg (163 lb). Respiratory Source: No data recorded Admission Weight: Weight: 73.9 kg (163 lb) Labs Lab Results Component Value Date WBC 9.4 07/17/2017 HGB 13.5 07/17/2017 HCT 40.7 07/17/2017 MCV 92 07/17/2017 PLT 267 07/17/2017 Lab Results Component Value Date GLU 89 07/17/2017 CALCIUM 9.6 07/17/2017 K 4.6 07/17/2017 CO2 29 07/17/2017 CL 104 07/17/2017 BUN 17 07/17/2017 CREATININE 0.93 07/17/2017 No results found for: AMYLASE No results found for: LIPASE Lab Results Component Value Date ALT 30 07/17/2017 AST 26 07/17/2017 ALKPHOS 91 07/17/2017 No results found for: INR , PROTIME Assessment Luma Davey is a 68 y.o.female with intermittent rectal bleeding. She has never had a colonoscopy. There is a family history of colon cancer in her father. Plan Colonoscopy with possible biopsy and/or polypectomy. Risks, benefits, and alternatives discussed with patient. Educated on bowel evacuation preparation. Patient verbalizes understanding and wishes to proceed. Hold aspirin 7 days prior. Evaluation included: Preparing to see the patient (e.g., review of tests) Obtaining and/or reviewing separately obtained history Performing a medically appropriate examination and/or evaluation Counseling and educating the patient/family/caregiver Referring and communicating with other health pediatric care coordinator Rectal bleeding [K62.5] REMA PIZARRO [facility] General Surgery [place] This note was created with the assistance of a speech recognition program. While intending to generate a timely document that accurately reflects the content of the visit, no guarantee can be provided that every grammatical or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
== END 2025-03-12 10:50 | disposition home or self-care (01) ==
LOC: MAMMO 10:49
PROVIDERS: Visit Provider Student in an Organized Health Care Education/Training Program
DX: Z12.31 Encounter for screening mammogram for malignant neoplasm of breast (principal); Z80.0 Family history of malignant neoplasm of digestive organs; Z80.51 Family history of malignant neoplasm of kidney
CPT/HCPCS: 77063; 77067

== ENCOUNTER 2025-04-01 08:41 | Outpatient (OUT) | payer MEDICARE, SELFPAY ==
--- OUTSIDE RECORDS SUMMARY | 2025-04-01 08:48 | XMS_ITS | Encounter Summary ---
Author Organization [facility] Sys tem Address [facility]-[id number] [address] [place] [address] Care Team Providers Care Publication Manager Name Role Phone Gil Brar MD Primary Care Provider [phone] Reason for Visit * Reason Onset Date Comments Med Refill 12/02/2020 Encounter Details Date Type Department Care Team (Late st Contact Info) Description 12/02/2020 Refill [facility] [address] [place] [phone] Albertina Lantigua CMA Social History Tobacco Use [...] AM EDT Requesting refill of propranolol to [facility] documented in this encounter Plan of Treatment Upcoming Encounters Date Type Department Care Team (Late st Contact Info) Description 08/31/2025 11:45 AM EST Office Visit [facility] [address] [place] [phone] Gil Brar MD [address] [place], [place] [phone] documented as of this encounter Visit Diagnoses Not on filedocumented in this encounter Additional Health Concerns Assessment Noted Time PHQ-9 Depression Total Score: 6 11/06/19 21 10:00 AM EDT A Body Mass Index follow-up plan has been documented for the patient 11/22/2018 2:06 PM EDT documented as of this encounter Care Teams Publication Manager Relationship Specialty Start Date End Date Gil Brar MD [address] [place] [address] PCP - General Internal Medicine 10/30/24 documented as of this encounter
--- OUTSIDE RECORDS SUMMARY | 2025-04-01 08:48 | XMS_ITS | Encounter Summary ---
Author Organization [facility] [employer] Sys tem Address [facility]-[id number] [address] [place] [address] Care Team Providers Care Ladle Mechanic Name Role Phone Gil Brar MD Primary Care Provider [phone] Encounter Details Date Type Department Care Team (Late st Contact Info) Description 01/13/2022 Orders Only [facility] [address] [place] [address] Rody García LPN Mixed hyperlipidemia [...] EST Office Visit [facility] [address] [place] [phone] Gil Brar MD [facility] [place] [address] documented as of this encounter [...] Killian MD LAB BLOOD ORDERABLES Final R [facility] Performing Organization Address [facility] Co de Phone Number SUNQUEST * Comprehensive metabolic panel (01/12/2022) 01/12/2022 Cr Killian MD LAB BLOOD ORDERABLES Final R esult Performing Organization Address [facility] Co de Phone Number SUNQUEST * (ABNORMAL) Lipid profile (01/12/2022) External Cholesterol 213(A) <=200 [employer] External Cholesterol:Hdl 4.8 4.4 - 7.1 [employer] External Hdl Cholesterol 44 40 - 60 [employer] External Ldl (Calc) 143.2(A) 100 - 129 [employer] External Triglycerides 129 <=150 [employer]QUEST External Very Low Lipoprotein 25.8 [facility] 01/12/2022 Cr Killian MD LAB BLOOD ORDERABLES Final R esult Performing Organization Address [facility] de Phone Number SUNQUEST * Thyroid profile includes TSH FT4 (01/12/2022) 01/12/2022 Cr Killian MD LAB BLOOD ORDERABLES Final R esult Performing Organization Address [facility] de Phone Number SUNQUEST documented in this encounter Visit Diagnoses Diagnosis Mixed hyperlipidemia documented in this encounter Additional Health Concerns Assessment Noted Time PHQ-9 Depression Total Score: 0 01/12/20 22 11:00 AM EDT A Body Mass Index follow-up plan has been documented for the patient 11/22/2018 2:06 PM EDT documented as of this encounter Care Teams Ladle Mechanic Relationship Specialty Start Date End Date Gil Brar MD [address] [place] [address] PCP - General Internal Medicine 10/30/24 documented as of this encounter
--- OUTSIDE RECORDS SUMMARY | 2025-04-01 08:48 | XMS_ITS | Clinical Summary ---
Author Organization [facility] Healthcare Address [address] [place] [address] Care Team Providers Care Regulatory Leader Name Role Phone Unavailable Primary Care Provider [...]
--- OUTSIDE RECORDS SUMMARY | 2025-04-01 08:48 | XMS_ITS | Encounter Summary ---
Author Organization [facility] Address [facility]-[id number] [address] [place] [address] Care Team Providers Care Bruise Trimmer Name Role Phone Gil Brar MD Primary Care Provider [phone] Reason for Visit * Reason Onset Date Comments Transition Of Care 06/26/2023 Encounter Details Date Type Department Care Team (Late st Contact Info) Description 06/26/2023 [facility]phone [facility] [address] [place] [address] Nela Phillips, CARLIE Transition Of [...] Discharge Specialty: Cardiac Name of Discharging Facility: [facility] Date of Facility Discharge: 06/22/23 Date of Interactive Contact and Name of Emergency Medicine Medical Director: Spoke with Luma on 06/26/23 Medication Review [...] Vascular Center on 07/04/2023 Specialty: Cardiology- @ [place] office 07/24/23 @ 1:40 Specialty: Review of Pending Lab/Diagnostic Tests and Plan for Completion: 06/21/23: Implantation of pacemaker (Biotronik) Patient went to [place] ER on 06/24/23 for CP/severe heart burn. [...] you have signs of a heart attack; geophysical observer CP, chest pressure, difficultybreathing, pain in arms, back or jaw, feeling faint or dizzy, and fast or irregular heartbeat. -CN contact information, Nela Phillips RN, can be reached at [phone] and will follow for a minimum of 30 days following hospitalization. Communication with Home Health Agencies and Other Services Utilized/Needed by the Patient: documented in this encounter Plan of Treatment Upcoming Encounters Date Type Department Care Team (Late st Contact Info) Description 08/31/2025 11:45 AM EST Office Visit [facility] [address] [place] [phone] Gil Brar MD [address] [place] [address] documented as of this encounter Visit Diagnoses Not on filedocumented in this encounter Additional Health Concerns Assessment Noted Time PHQ-9 Depression Total Score: 0 12/21/19 23 3:00 PM EDT A Body Mass Index follow-up plan has been documented for the patient 11/22/2018 2:06 PM EDT documented as of this encounter Care Teams Bruise Trimmer Relationship Specialty Start Date End Date Gil Brar MD [facility] [place] [address] PCP - General Internal Medicine 10/30/24 documented as of this encounter
--- OUTSIDE RECORDS SUMMARY | 2025-04-01 08:48 | XMS_ITS | Encounter Summary ---
Author Organization [facility] Address [address] [facility], [address] [place] [address] Care Team Providers Care Inspector Bicycle Name Role Phone Cr Killian MD Primary Care Provider [phone] Reason for Visit * Reason Comments Medication Refill Encounter Details Date Type Department Care Team (Late st Contact Info) Description 10/13/2019 Refill [facility] [address] [place] [address] Servando Giraldo MD [address] [place] [address] Medication Refill Social History Tobacco Use Types [...] on filedocumented in this encounter Care Teams Inspector Bicycle Relationship Specialty Start Date End Date Cr Killian MD [address] [place] [address] PCP - General Family Medicine 08/10/17 documented as of this encounter
--- OUTSIDE RECORDS SUMMARY | 2025-04-01 08:48 | XMS_ITS | Encounter Summary ---
Author Organization [facility] [employer] Sys tem Address [facility] [id number] [address] [place] [address] Care Team Providers Care Drying Machine Operator Name Role Phone Gil Brar MD Primary Care Provider [phone] Encounter Details Date Type Department Care Team (Late st Contact Info) Description 03/16/2025 Results [facility] [address] [place] [phone] Gil Brar MD [address] [place] [address] Mammography screening bilateral with CAD Social History Tobacco Use Types Packs/Day Years [...] EST Office Visit [facility] [address] [place] [phone] Gil Brar MD [address] [place] [address] documented as of this encounter Visit Diagnoses Not on filedocumented in this encounter Additional Health Concerns Assessment Noted Time PHQ-9 Depression Total Score: 1 03/03/20 25 3:00 PM EDT A Body Mass Index follow-up plan has been documented for the patient 11/22/2018 2:06 PM EDT documented as of this encounter Care Teams Drying Machine Operator Relationship Specialty Start Date End Date Gil Brar MD [address] [place] [address] PCP - General Internal Medicine 10/30/24 documented as of this encounter
--- OUTSIDE RECORDS SUMMARY | 2025-04-01 08:48 | XMS_ITS | Encounter Summary ---
Author Organization [facility] [employer] Sys tem Address [facility] [place]-[id number] [address] [place] [address] Care Team Providers Care Doughnut Icer Machine Name Role Phone Gil Brar MD Primary Care Provider [phone] Encounter Details Date Type Department Care Team (Late st Contact Info) Description 03/13/2025 Orders Only [facility] [address] [place] [address] Anai Kirkpatrick CMA Encounter for screening mammogram for malignant neoplasm of breast Social History Tobacco Use Types Packs/Day Years [...] EST Office Visit [facility] [address] [place] [phone] Gil Brar MD [address] [place] [phone] documented as of this encounter Procedures Procedure Name Priority Date/Time Associated Diagnosis Comments MAMM SCREENING BILATERAL W CAD Routine 03/13/2025 12:17 PM EDT Encounter for screening mammogram for malignant neoplasm of breast documented in this encounter Results * Mammography screening bilateral with CAD (03/13/2025 12:17 PM EDT) Anatomical Region Laterality Modality Breast Bilateral Mammography Gil Brar MD IMG MAMMOGRAPHY ORDERABLES Fin al Result documented in this encounter Visit Diagnoses Diagnosis Encounter for screening mammogram for malignant neoplasm of breast documented in this encounter Additional Health Concerns Assessment Noted Time PHQ-9 Depression Total Score: 1 03/03/20 25 3:00 PM EDT A Body Mass Index follow-up plan has been documented for the patient 11/22/2018 2:06 PM EDT documented as of this encounter Care Teams Doughnut Icer Machine Relationship Specialty Start Date End Date Gil Brar MD [address] [place] [phone] PCP - General Internal Medicine 10/30/24 documented as of this encounter
--- OUTSIDE RECORDS SUMMARY | 2025-04-01 08:48 | XMS_ITS | Encounter Summary ---
Author Organization [facility] [employer] Sys [employer] Address [facility][id number] [address] [place] [address] Care Team Providers Care Security Controls Assessor Name Role Phone Gil Brar MD Primary Care Provider [phone] Encounter Details Date Type Department Care Team (Late st Contact Info) Description 06/26/2023 Orders Only [facility] [address] [place] [address] External, Scanning Provider Social History [...] EST Office Visit [facility] [address] [place] [phone] Gil Brar MD [address] [place] [address] documented as of this encounter Procedures [...] Computed Radiogr aphy Narrative 2023 Ordering Provider: [place] Dr. Chuck Dutton us Scanning Provider External [...] documented as of this encounter Care Teams Security Controls Assessor Relationship Specialty Start Date End Date Gil Brar MD [address] [place] [address] PCP - General Internal Medicine 10/30/24 documented as of this encounter
--- OUTSIDE RECORDS SUMMARY | 2025-04-01 08:48 | XMS_ITS | Encounter Summary ---
Author Organization [employer] Sys [employer] Address [facility] [id number] [address] [place] [address] Care Team Providers Care Regrader Name Role Phone Gil Brar MD Primary Care Provider [phone] Encounter Details Date Type Department Care Team (Late st Contact Info) Description 06/22/2023 Telephone [facility] [address] [place] [address] Florence Driscoll CMA Social History [...] Patient scheduled for MARIA DE JESUS 07/05/23. [facility] for pacemaker placement. Records in careeverywhere. Please call patient. Thanks! * Telephone Encounter - Nela Phillips RN - 06/22/2023 3:27 PM EST Got it!! Thanks. I will call her today. documented in this encounter Plan of Treatment Upcoming Encounters Date Type Department Care Team (Late st Contact Info) Description 08/31/2025 11:45 AM EST Office Visit [facility] [address] [place] [address] Gil Brar MD [address] [place] [address] documented as of this encounter Visit Diagnoses Not on filedocumented in this encounter Additional Health Concerns Assessment Noted Time PHQ-9 Depression Total Score: 0 12/21/19 23 3:00 PM EDT A Body Mass Index follow-up plan has been documented for the patient 11/22/2018 2:06 PM EDT documented as of this encounter Care Teams Regrader Relationship Specialty Start Date End Date Gil Brar MD [address] [place] [address] PCP - General Internal Medicine 10/30/24 documented as of this encounter
--- OUTSIDE RECORDS SUMMARY | 2025-04-01 08:49 | XMS_ITS | Encounter Summary ---
Author Organization [facility] [employer] Sys [employer] Address [id number] [address] [place] [address] Care Team Providers Care Sql Dba Name Role Phone Gil Brar MD Primary Care Provider [phone] Encounter Details Date Type Department Care Team (Late st Contact Info) Description 08/29/2024 Orders Only [facility] [address] [place] [address] External, Scanning Provider Social History [...] Office Visit [facility] [address] [place] [phone] Gil Brar MD [address] [place] [id number] documented as of this encounter Procedures Procedure [...] documented as of this encounter Care Teams Sql Dba Relationship Specialty Start Date End Date Gil Brar MD [address] [place] [id number] PCP - General Internal Medicine 10/30/24 documented as of this encounter
--- OUTSIDE RECORDS SUMMARY | 2025-04-01 08:49 | XMS_ITS | Encounter Summary ---
Author Organization [facility] Address [address] [facility], [address] [place] [address] Care Team Providers Care Reinforcing Steel Placer Name Role Phone Cr Killian MD Primary Care Provider [phone] Reason for Referral * Imaging (Routine) - Closed Specialty Diagnoses / Procedures Referred By Farhana muñoz Referred To Contact Radiology Diagnoses Encounter for screening mammogram for malignant neoplasm of breast Procedures ERICKA DIGITAL SCREEN W OR WO CAD BILATERAL Cr Killian MD [address] [place] [address] Phone: tel: fax: Referral ID Status Reason Start Date Expiration Date Visits Re quested Visits Authorized [id number] Closed 01/11/2022 01/11/2023 1 1 Encounter Details Date Type Department Care Team (Latest Contact Info) Description 01/11/2022 Transcribe Orders [facility] [address] [place] [address] Cr Killian MD [address] [place] [address] Encounter for screening mammogram for [...] mammogram documented in this encounter Care Teams Reinforcing Steel Placer Relationship Specialty Start Date End Date Cr Killian MD [address] [place] [address] PCP - General Family Medicine 08/10/17 documented as of this encounter
--- OUTSIDE RECORDS SUMMARY | 2025-04-01 08:49 | XMS_ITS | Clinical Summary ---
Author Organization [employer] tem Address [id number] [address] [place] [address] Care Team Providers Care Chair Caner Name Role Phone Gil Brar MD Primary Care Provider [phone] Allergies No known active allergies Medications MULTIVITAMIN [...] 06/14/2018 LBBB (left bundle branch block) 06/14/2018 [place]-Walker grade 1 rectocele 01/22/2018 Rectocele, female 09/07/2017 [...] Encounters Date Type Department Care Team Description 03/16/2025 Results [facility] [address] [place], [place] [address] [address] Gil Brar MD Mammography screening bilateral with CAD 03/13/2025 Orders Only [facility] [address] [place] [address] [place] [address] Anai Kirkpatrick [facility] Encounter for screening mammogram for malignant neoplasm of breast 03/06/2025 Telephone [facility] [address] [place] [address] [place] [address] Florence Driscoll CMA 03/03/2025 3:30 PM EDT Office Visit [facility] Medicine [address] [place], [place] [address] [address] Gil Brar MD Encounter for Medicare annual wellness exam (Primary Dx); Cough due to KARISSA inhibitor; Encounter for screening mammogram for malignant neoplasm of breast; Mixed hyperlipidemia; Heart failure with mildly reduced ejection fraction ([facility]); Impaired fasting glucose 03/03/2025 Travel 02/13/[address] [place] [address] Florence Driscoll [facility] 01/14/2025 9:45 AM EDT [facility] [place] [phone] Natalia Wolf APRN-RADHA Chronic cough (Primary Dx); Weight loss, non-intentional 01/14/2025 Travel from Last 3 Months Immunizations Immunization [...] Office Visit [facility] [address] [place] [address] Gil Brar MD [address] [place] [address] Health Maintenance Due Date Last Done Comments Adult BMI Follow Up Plan 1973 COVID-19 Vaccine (2023-2 5 season) 2025 05/11/2024, 05/16/2023, 06/20/2022, Additional history exists Influenza Vaccine 03/02/2025 05/11/2024, , 03/05/2022, Additional history exists Adult BMI Screening 03/03/2026 03/03/2025 Depression Screening 03/03/2026 03/03/2025 Fall Risk Screening 03/03/2026 03/03/2025 Medicare Annual Wellness Visit 03/03/2026 0 03/03/2025, 12/25/2023, 12/20/2022, Additional history exists Tobacco Screening 03/03/2026 03/03/2025 Mammogram 03/13/2026 03/13/2025, 12/30, 08/01/2017, Additional history exists Colonoscopy 02/19/2029 02/20/2024 DTaP,Tdap and Td Vaccines (3 - Td or Tdap) 03/31/2029 03/31/2019, 09/12/2011 Zoster (Shingles) Vaccine Completed 03/29/2020, Medical Devices Implanted Type Area Vp Cardiovascular Device Identifier Shelf Expiration Date Model / Serial / Lot Lead Pcng 45cm Ecrdl Promri Migel Berger Bp Actfx Strd Implant Lead [employer] [id number] / [id number] / [id number] Description:MIGEL Berger 45 Lead Pcng 45cm Ecrdl Promri Migel Berger Bp Actfx Strd Implant Lead [employer] [id number] / [id number] / [id number] Description:MIGEL Berger 53 Pacemaker-06/01 Implanted:06/01 (Quantity not on file) Pacemaker [employer] EDORA 8 DRErick / [id number] / [id number] Description:EDORA 8 DRErick Procedures Procedure Name Priority Date/Time Associated Diagnosis Comments MAMM SCREENING BILATERAL W CAD Routine 03/13/2025 12:17 PM EDT Encounter for screening mammogram for malignant neoplasm of breast COLONOSCOPY Routine 02/20/2024 Rectal bleeding from Last 3 Months or Most Recently Relevant to Health Maintenance Results * Mammography screening bilateral with CAD (03/13/2025 12:17 PM EDT) Anatomical Region Laterality Modality Breast Bilateral Mammography us Gil Brar MD IMG MAMMOGRAPHY ORDERABLES Fin al Result * Colonoscopy (02/20/2024) us Ilana Packer CAPSULE INSPECTOR-AIR DEFENSE ARTILLERY OFFICER GI PROCEDURE ORDERABL ES Final Result MANUALLY TRANSCRIBED RESULTS from Last 3 Months or Most Recently Relevant to Health Maintenance [place] [address] [address] [place] [address] MEDICARE Care Teams Chair Caner Relationship Specialty Start Date End Date Gil Brar MD [address] [place] [address] PCP - General Internal Medicine 10/30/24
--- OUTSIDE RECORDS SUMMARY | 2025-04-01 08:49 | XMS_ITS | Clinical Summary ---
Author Organization [facility] Address [address] [facility], [address] [place] [address] Care Team Providers Care Automotive Fleet Supervisor Name Role Phone Cr Killian MD Primary Care Provider [phone] Allergies No known active allergies Medications propranolol [...] Noted Date Diagnosed Date Stress incontinence 10/02/2017 [place]-Walker grade 2 cystocele 09/07/2017 Rectocele, female 09/07/2017 History of pelvic fracture 08/10/2017 Mixed incontinence urge and stress 08/10/2017 Intrinsic sphincter deficiency (ISD) 08/10/2017 Urge incontinence of urine 08/10/2017 MVP (mitral valve prolapse) 07/16/2017 Primary osteoarthritis involving multiple joints 07/16/2017 [place]-Walker grade 1 rectocele Urinary, incontinence, stress female [...] on file Medical Devices Implanted Type Area Honeycomb Blanket Maker Device Identifier Shelf Expiration Date Model / Serial / Lot Impl Sling Transvaginal Mid Ureth Adv Fit Sys Implanted:Qty: 1 on 09/27/2017 by Servando Giraldo MD at [facility] Urologic al/Lace Machine Operator [employer]: INTERVENTIONAL CARDIO-PMM 05/03/2020 [id number] / / [id number] Explanted Type Area Honeycomb Blanket Maker Device Identifier Shelf Expiration Date Model / Serial / Lot Impl Sling Transvaginal Mid Ureth Adv Fit Sys Implanted:Qty: 1 Explanted:Qty: 1 on 09/27/[address] [facility] Urologic al/Lace Machine Operator [employer]: INTERVENTIONAL CARDIO-PMM 08/15/2020 [id number] / [id number] Insurance [facility] Advance Directives * Full Code (Latest Code Status on File) Date Activated Date Inactivated Comments 09/27/2017 10:26 AM 09/27/2017 3:01 PM Care Teams Automotive Fleet Supervisor Relationship Specialty Start Date End Date Cr Killian MD [address] [place] [address] PCP - General Family Medicine 08/10/17
--- OUTSIDE RECORDS SUMMARY | 2025-04-01 08:49 | XMS_ITS | Encounter Summary ---
Author Organization [facility] Sys tem Address [id number] [address] [place] [address] Care Team Providers Care Clinical Program Coordinator Name Role Phone Gil Brar MD Primary Care Provider [phone] Encounter Details Date Type Department Care Team (Late st Contact Info) Description 01/21/2024 Orders Only [facility] [address] [place] [address] External, Scanning Provider Social History [...] EST Office Visit [facility] [address] [place] [address] Gil Brar MD [address] [place] [address] documented as of this encounter Procedures [...] documented as of this encounter Care Teams Clinical Program Coordinator Relationship Specialty Start Date End Date Gil Brar MD [address] [place] [address] PCP - General Internal Medicine 10/30/24 documented as of this encounter
--- OUTSIDE RECORDS SUMMARY | 2025-04-01 08:49 | XMS_ITS | Patient Health Record ---
Author Organization [facility] Address [address] [place] [address] Care Team Providers Care Application Project Leader Name Role Phone Gaudencio Meyer Unavailable [phone] Allergies No Known Allergies Reason For Referral No Information Medications Medication SIG (Take, Route, Frequency, Duration) Notes Start Date End Date Status Lisinopril 5 MG Tablet TAKE 1 TABLET BY MOUTH EVERY DAY DIRECTED Oral; Duration: 90 Days Active Mirabegron ER 50 MG Tablet Extended Release 24 Hour Oral; Duration: 90 Days Active Vitamin B Complex Ac tive Myrbetriq 50 MG Tablet Extended Release 24 Hour Oral; Duration: 90 Days Active Atorvastatin Calcium 20 MG Tablet Oral; Duration: 90 Days Acti ve Lexapro 20 MG Tablet 1 tablet Orally Onc e a day Active Aspirin 81 81 MG Tablet Delayed Release 1 tablet Orally Once a day Active Calcium + Vitamin D3 Active Multivitamin - Tablet 1 tablet Orally On ce a day Active Vitamin A Active Ferrous Sulfate Acti ve Magnesium Active Social History Section Notes: Patient states they are a fo rmer smoker and social alcohol use. Patient states they are a fo rmer smoker and social alcohol use. Encounters Encounter Location Date Provider Diagnosis [facility] [address] [place] [address] 02/06/2025 Gaudencio Meyer Closed displaced fracture of anterior process of left calcaneus, initial encounter S92.022A [employer] [address] [place] [address] 02/27/2025 Gaudencio Meyer Closed displaced fracture of anterior process of left calcaneus, initial encounter S92.022A Assessments Encounter Date Diagnosis (ICD Code) Assessment Notes Treatment Notes Treatment Clinical Notes Section Notes 02/06/2025 Closed displaced fracture of anterior process of left calcaneus, initial encounter (ICD-10 - S92.022A) Patient was seen and evaluated. Patient education provided and all questions answered to satisfaction. I recommended nonsurgical treatment at this time. Splint was removed for examination. Treatment advices included: - Xrays from ER were reviewed with patient and and there is a small anterior process fx - RICE therapy as well as activity modification - She was placed back into splint and an order for CAM boot provided. She may transition to CAM boot and WBAT in boot as pain allows. - Imaging ordered: none 02/27/2025 Closed displaced fracture of anterior process of left calcaneus, initial encounter (ICD-10 - S92.022A) Patient is doing very well and may begin transitioning out of CAM boot and my increase activity as tolerated. Continue RICE therapy. Plan Of Treatment No Information Insurance Providers Payer Name Payer Address Payer Phone Subscriber Number Group Number Insured Name Patient Relationship to Insured Coverage Start Date Coverage End Date [facility] [address] [place] [address] [id number] Luma Carter Self - patient is the insured Medical (General) History Medical History History ICD Code Arthritis Heart Disease Cervical Cancer Surgical History Surgery Date(Month/Year) Pelvis Plate 2015 Pacemaker 2022 [facility] Left Wrist
--- OUTSIDE RECORDS SUMMARY | 2025-04-01 08:49 | XMS_ITS | Encounter Summary ---
Author Organization [facility] Address [facility] [id number] [address] [place] [address] Care Team Providers Care Kaitara Taraka Name Role Phone Gil Brar MD Primary Care Provider [phone] Encounter Details Date Type Department Care Team (Late st Contact Info) Description 11/03/2024 Orders Only [facility] [address] [place] [address] Cadence Weller LPN Weight loss, [...] EST Office Visit [facility] [address] [place] [address] Gil Brar MD [address] [place] [address] documented as of this encounter [...] documented as of this encounter Care Teams Kaitara Taraka Relationship Specialty Start Date End Date Gil Brar MD [address] [place] [address] PCP - General Internal Medicine 10/30/24 documented as of this encounter
--- OUTSIDE RECORDS SUMMARY | 2025-04-01 08:49 | XMS_ITS | Encounter Summary ---
Author Organization [facility] Address [address] [facility], [address] [place] [address] Care Team Providers Care Fur Clipper Name Role Phone Cr Killian MD Primary Care Provider [phone] Encounter Details Date Type Department Care Team (Late st Contact Info) Description 09/17/2018 [facility] dining room maid [address] [place] [address] Servando Giraldo MD [address] [place] [address] Social History Tobacco Use Types Packs/Day Years [...] on filedocumented in this encounter Care Teams Fur Clipper Relationship Specialty Start Date End Date Cr Killian MD [address] [place] [address] PCP - General Family Medicine 08/10/17 documented as of this encounter
--- OUTSIDE RECORDS SUMMARY | 2025-04-01 08:49 | XMS_ITS | Clinical Summary ---
Author Organization [facility] Address [address] [place] [address] Care Team Providers Care Crocheter Name Role Phone Cr Contreras Primary Care Provider [phone] Allergies No known active allergies Medications ascorbic [...] 08/16/2018 Active Ca Carb-Mag Cmb 11-D3-Zn Sulf [phone] ps-vkys-ja-mg tab Take by mouth once daily. Active [...] is lower risk 7 09/24/2023 Data from: https://www.neighborhoodatlas.medicine.[facility].edu/. Last address used for calculation [address] 09/24/2023 Comments No [...] history exists RSV Vaccine Completed 06/18/2023 Insurance [facility] MEDICARE ADVANTAGE PPO Care Teams Crocheter Relationship Specialty Start Date End Date Cr Contreras [address] [place] [address] PCP - General Family Medicine 08/23/18
--- OUTSIDE RECORDS SUMMARY | 2025-04-01 08:49 | XMS_ITS | Clinical Summary ---
Author Organization [facility] Address [address] [place] [address] Care Team Providers Care Paper Handler Name Role Phone Cr Killian MD Primary Care Provider [phone] Allergies No known active allergies Medications Myrbetriq [...] 06/14/2018 07/24/2023 Urinary, incontinence, stress female 10/02/2017 [place]-Walker grade 2 cystocele 09/07/2017 0 07/24/2023 Herniation [...] Encounters Date Type Department Care Team Description 03/20/2025 11:40 AM EDT Ancillary Procedure [facility] [address] [place] [address] Adjustment and management of cardiac pacemaker 03/19/2025 Orders Only [facility] [address] [place] [phone] Pan Monsalve MD 01/14/2025 Telephone [facility] [address] [place] [address] Brooklyn Salgado MA from Last 3 Months Family History Medical [...] place to sleep or slept in a senior living (including now)? No 06/19/2023 Hunger Vital Sign [...] Care Team (Late st Contact Info) Description 04/07/2025 3:45 PM EDT Ancillary Procedure [facility] [address] [place] [address] 04/29/2025 11:20 AM EDT Office Visit [facility] [address] [place] [address] Angle Treadwell MD [address] [place] [place] [address] Health Maintenance Due Date Last Done Comments CT Colonography 1954 Colonoscopy 1954 Colorectal Cancer Screening 1954 FIT-DNA 1954 FIT 1954 FOBT 1954 Medicare Annual Wellness (AWV) 1954 Sigmoidoscopy 1954 Depression Screening 1966 Fall Risk Screening 2019 COVID-19 Vaccine ( season) 2025 05/11/2024, 05/16/2023, 06/20/2022, Additional history exists Influenza Vaccine (#1) 2025 , 05/16/2023, 03/05/2022, Additional history exists Mammogram 03/13/2027 03/13/2025, 08/01/2017 Adult Tetanus 03/31/2029 03/31/2019, 09/12/2011 Zoster Vaccines [...] this topic Medical Devices Implanted Type Area Animal Rides Manager Device Identifier Shelf Expiration Date Model / Serial / Lot LeadMigel S 53, - [id number] - [id number] Implanted:Qty: 1 on 06/21/2023 by Pan Monsalve MD at [facility] Lead [employer] [id number] 05/01/2025 [id number] / [id number] / LeadMigel S 45, - [id number] - [id number] Implanted:Qty: 1 on 06/21/2023 by Pan Monsalve MD at [facility] Lead [employer] [id number] 05/01/2025 [id number] / [id number] / [id number] Migel Berger 45 [id number] Implanted:06/21 (Quantity not on file) Lead 377 176 MIGEL Berger 45 / [id number] / [id number] Migel Berger 53 [id number] Implanted:06/21 (Quantity not on file) Lead 377 177 MIGEL Berger 53 / [id number] / Pacer Steffanie Cooper,Grzegorz - [id number] - [id number] Implanted:Qty: 1 on 06/21/2023 by Pan Monsalve MD at [facility] Pacemaker [employer] [id number] 09/29/2024 [id number] / [id number] / [id number] Kenneth 8 Grzegorz [id number] Implanted:06/21 (Quantity not on file) Pacemaker [id number] KENNETH 8 GRZEGORZ / [id number] / Procedures Procedure Name Priority Date/Time Associated Diagnosis Comments CARDIAC DEVICE CHECK CHECK - REMOTE Routine 03/23/2025 12:40 PM EDT Adjustment and management of cardiac pacemaker CARDIAC DEVICE CHECK - REMOTE ALERT - PACEMAKER Routine 03/19/2025 12:00 AM EDT CARDIAC DEVICE CHECK CHECK - REMOTE Routine 01/15/2025 6:43 PM EDT Adjustment and management of cardiac pacemaker from Last 3 Months Results * CARDIAC DEVICE CHECK - REMOTE ALERT - PACEMAKER (03/23/2025 12:40 PM EDT) Only the most recent of2 resultswithin the time period is included. Pan Monsalve MD CV IMPLANTABLE CARDIAC DEVICE TN OCEDURES Final Result CPACS * Cardiac device check - Remote alert pacemaker (03/19/2025 12:00 AM EDT) Anatomical Region Laterality Modality Other 03/19/2025 Pan Monsalve MD CV IMPLANTABLE CARDIAC DEVICE TN OCEDURES Final Result from Last 3 Months Insurance [employer] MEDICARE ADVANTAGE Advance Directives * Full Code (Latest Code Status on File) Date Activated Date Inactivated Comments 06/19/2023 10:52 AM 06/22/2023 5:12 PM Care Teams Paper Handler Relationship Specialty Start Date End Date Cr Killian MD PCP - General 06/19/23
--- OUTSIDE RECORDS SUMMARY | 2025-04-01 08:49 | XMS_ITS | Encounter Summary ---
Author Organization [facility] Sys [facility] Address [id number] [address] [place] [address] Care Team Providers Care Fusing Furnace Loader Name Role Phone Gil Brar MD Primary Care Provider [phone] Encounter Details Date Type Department Care Team (Late st Contact Info) Description 06/26/2024 Orders Only [facility] [address] [place] [address] External, Scanning Provider Social History [...] EST Office Visit [facility] [address] [place] [phone] Gil Brar MD [address] [place] [phone] documented as of this encounter Visit Diagnoses Not on filedocumented in this encounter Additional Health Concerns Assessment Noted Time PHQ-9 Depression Total Score: 3 12/25/19 24 10:00 AM EDT A Body Mass Index follow-up plan has been documented for the patient 11/22/2018 2:06 PM EDT documented as of this encounter Care Teams Fusing Furnace Loader Relationship Specialty Start Date End Date Gil Brar MD [address] [place] [address] PCP - General Internal Medicine 10/30/24 documented as of this encounter
--- OUTSIDE RECORDS SUMMARY | 2025-04-01 08:49 | XMS_ITS | Encounter Summary ---
Author Organization [facility] Address [address] [facility] [place] [address] Care Team Providers Care Bench Molder Name Role Phone Cr Killian MD Primary Care Provider [phone] Encounter Details Date Type Department Care Team (Late st Contact Info) Description 12/14/2024 Orders Only [facility] [address] [place] [address] Pan Monsalve MD [address] [place] [address] Social History Tobacco Use Types [...] and heating? Not hard at all 06/19/2023 [place] Safety & Environment Answer Date Rec orded [...] place to sleep or slept in a group home (including now)? No 06/19/2023 Hunger Vital Sign [...] Description 04/07/2025 3:45 PM EDT Ancillary Procedure [facility] [address] [place] [address] 04/29/2025 11:20 AM EDT Office Visit [facility] [address] [place] [address] Angle Treadwell MD [address] [id number] [place] [address] documented as of this encounter Procedures Procedure Name Priority Date/Time Associated Diagnosis Comments CARDIAC DEVICE CHECK - REMOTE - PACEMAKER Routine 12/14/2024 12:00 AM EDT documented in this encounter Results * Cardiac device check - Remote pacemaker (12/14/2024 12:00 AM EDT) Anatomical Region Laterality Modality Other 12/14/2024 Pan Monsalve MD CV IMPLANTABLE CARDIAC DEVICE [place] OCEDURES Final Result documented in this encounter Visit Diagnoses Not on filedocumented in this encounter Care Teams Bench Molder Relationship Specialty Start Date End Date Cr Killian MD PCP - General 06/19/23 documented as of this encounter
[2025-04-01 10:13] LABS: Alanine Aminotransferase 34 U/L (14-59); Anion Gap 12.7; Aspartate Amino Transferase 19 U/L (15-37); Blood Urea Nitrogen 19.0 mg/dL (7.0-18.0); Calcium 8.8 mg/dL (8.5-10.1); Carbon Dioxide 27.7 mmol/L (21.0-32.0); Chloride 104 mmol/L (98-107); Cholesterol 181 mg/dL (<=200); Estimated GFR (African America >60 (>=60 mL/min/1.73m^2); Estimated GFR (Non-African Ame 52 (>=60 mL/min/1.73m^2); Glucose 100 mg/dL (74-106); HDL Cholesterol 46 mg/dL (40-60); Potassium 4.4 mmol/L (3.5-5.1); Sodium 140 mmol/L (136-145); Triglycerides 234 mg/dL (<=150); VLDL CHOLESTEROL 46.8 mg/dL
== END 2025-04-01 08:42 | disposition home or self-care (01) ==
LOC: LAB 08:43
PROVIDERS: Visit Provider Internal Medicine Cardiovascular Disease
DX: E78.5 Hyperlipidemia, unspecified (principal); I10 Essential (primary) hypertension
CPT/HCPCS: 36415; 80048; 80061; 84450; 84460